=== PATIENT | male | born 1965 | race Caucasian/White ===

== ENCOUNTER 2016-11-29 11:48 | Emergency (ER) | payer MEDICAID ==
[~2016-11-29] VITALS: Ht 170.2 cm; Wt 59.0 kg
[~2016-11-29 11:48] MED LIST: BUSP30TA2 PO; CHLO10TA10 PO; DIVA500T PO; ESCI20TA45 PO; LEVE500T99 PO; MEMA10TA2 PO; TOPI100T11 PO; VENL225T PO; ZOLP10TA PO
[2016-11-29] MEDS ORDERED: TETANUS,DIPTH,PERTUSS P/F (BOOSTRIX) 0.5 ML VIAL IM STA (12:19)
--- NOTE | 2016-11-29 12:19 | ED Fall/Injury ---
General Chief Complaint: Laceration Stated Complaint: FALL/RT KNEE LAC Nursing Triage Note: c/o laceration to right knee. Pt apparently fell. Denies head trauma. Source: patient Exam Limitations: no limitations History of Present Illness Time seen by provider: 12:05 Initial Comments Here with complaint of laceration to the right knee after falling while trying to get in the car. Denies hitting his head. He did apparently disrupt the scab to the left elbow at the same time. Denies other injury. Last tetanus is unknown. Patient does have advanced dementia and his poor historian. Family states that he fell getting into the car. They have a gravel driveway and he hit his knee on the gravel. Occurred: just prior to arrival Severity: moderate Injuries/Pain Location: lower extremity Context: lost balance Loss of Consciousness: no loss of consciousness Associated Symptoms (Fall): Denies Symptoms Allergies and Home Medications Allergies Coded Allergies: morphine (Unverified Adverse Reaction, Unknown, 05/03/16) Home Medications Buspirone HCl 30 Mg Tablet, 30 MG PO BID, (Reported) Chlorpromazine HCl 10 Mg Tablet, 10 MG PO TID, (Reported) Divalproex Sodium 500 Mg Tablet.dr, 1,500 MG PO BID for 30 Days, Ref 2 Prescribed by: JENIFER EVANS on 05/04/16 0155 Escitalopram Oxalate 20 Mg Tablet, 20 MG PO DAILY, (Reported) Levetiracetam 500 Mg Tablet, 1,500 MG PO BID, (Reported) Memantine HCl 10 Mg Tablet, 20 MG PO BID, (Reported) Topiramate 100 Mg Tablet, 100 MG PO TID, (Reported) Venlafaxine HCl 225 Mg Tab.er.24, 225 MG PO DAILY, (Reported) Zolpidem Tartrate 10 Mg Tablet, 10 MG PO HS, (Reported) Past Udwbiax-Xpyubs-Opjhgp Hx Patient Social History Alcohol Use: Occasionally Uses Recreational Drug Use: Yes (marijuana) Type Used: Cigarettes Recent Foreign Travel: No Contact w/Someone Who Travel: No Recent Infectious Disease Expo: No Recent Hopitalizations: No Immunizations Up To Date Tetanus Booster (TDap): Unknown Seasonal Allergies Seasonal Allergies: No Surgeries HX Surgeries: Yes Surgeries: Brain Shunt Respiratory Hx Respiratory Disorders: Yes Respiratory Disorders: Asthma, COPD Cardiovascular Hx Cardiac Disorders: Yes Cardiac Disorders: Hypertension Neurological Hx Neurological Disorders: Yes Neurological Disorders: Dementia, Seizure Disorder Reproductive System Hx Reproductive Disorders: No Genitourinary Hx Genitourinary Disorders: No Gastrointestinal Hx Gastrointestinal Disorders: No Musculoskeletal Hx Musculoskeletal Disorders: Yes Musculoskeletal Disorders: Arthritis Endocrine Hx Endocrine Disorders: No HEENT HX ENT Disorders: No Cancer Hx Cancer: No Psychosocial Hx Psychiatric Problems: Yes Behavioral Health Disorders: Anxiety, Depression Integumentary HX Skin/Integumentary Disorder: No Blood Transfusions Hx Blood Disorders: No Adverse Reaction to a Blood Tr: No Reviewed Nursing Assessment Reviewed/Agree w Nursing PMH: Yes Family Medical History Significant Family History: No Pertinent Family Hx Physical Exam Vital Signs Vital Sign - Last 12Hours 11/29/16 12:01 Temp 97.3 Pulse 70 Resp 18 B/P (MAP) 116/70 Pulse Ox 95 O2 Delivery Room Air Capillary Refill : Less Than 3 Seconds General Appearance: WD/WN, no apparent distress HEENT: PERRL/EOMI, pharynx normal Neck: full range of motion, supple Cardiovascular: regular rate, rhythm, no murmur Respiratory: lungs clear, normal breath sounds Gastrointestinal: non tender, soft Back: normal inspection, no CVA tenderness, no vertebral tenderness Extremities: normal range of motion, other (tenderness around the right knee and the left upper arm. Wounds as noted below.) Neurologic/Psychiatric: alert, normal mood/affect Skin: warm/dry, other (4-5 cm laceration to the right anterior knee that is irregular shaped. Bleeding controlled. Multiple scattered abrasions and bruising noted. Lateral aspect of left elbow with few older appearing scabs.) [place] Coma Score Best Eye Response: (4) Open Spontaneously Best Verbal Response: (5) Oriented Best Motor Response: (6) Obeys Commands Laceration Repair : Wound Location: Lower Extremities Other Wound Location Right knee Wound Length (cm): 4 Wound's Depth, Shape: superficial, irregular Wound Explored: contaminated Irrigated w/ Saline (ccs): 250 Betadine Prep?: No (Betasept) Anesthesia: Lidocaine w/ Epi Volume Anesthetic (ccs): 6 Wound Debrided: minimal Suture: Prolene Suture Size: 4-0 Number of Sutures: 10 Layer Closure?: 1 Number Deep Layer Sutures: 0 Sterile Dressing Applied?: Yes Progress Wound vigorously scrubbed with Betasept after anesthesia. Closed and covered with antibiotic ointment and dressing. Patient tolerated procedure well. No complications. Progress/Results/Core Measures Results/Orders My Orders Orders - CEILA WHITE MD Elbow, Left, 3 Views (11/29/16 12:19) Knee, Right, 3 Views (11/29/16 12:19) Dipht,Pertuss(Acell),Tet Adult (Boostrix (11/29/16 12:19) Lidocaine/Epi 1% 1:100,000 (Xylocaine /E (11/29/16 14:00) Vital Signs/I&O Vital Sign - Last 12Hours 11/29/16 12:01 Temp 97.3 Pulse 70 Resp 18 B/P (MAP) 116/70 Pulse Ox 95 O2 Delivery Room Air Blood Pressure Mean: 85 Progress Note : Progress Note Seen and evaluated. X-ray of right knee and left elbow. Tetanus updated. Wound closed. Dressing placed. I did discuss findings and concerns with the patient as well as his sister per his instructions. Elbow x-ray does show some effusion on the x-ray but no occult fracture. He does have long history of left rotator cuff injury and complains of pain in the upper arm but not necessarily at the elbow. He does have some mild abrasions at the elbow. He was instructed to follow with his doctor for x-ray recheck. 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 Discharged home with return precautions. Patient verbalize understanding instructions and agreement with plan. Diagnostic Imaging Diagonstic Imaging: Xray Plain Films/CT/US/NM/MRI: elbow Comments VIA [facility]. [place], [place] NAME: JULIANA BENJAMIN [facility] REC#: [id number] PT STATUS: REG ER : 1965 PHYSICIAN: CELIA WHITE MD ADMIT DATE: 11/29/16/ER Draft Date of Exam:11/29/16 ELBOW, LEFT, 3 VIEWS INDICATION: Fall with left elbow pain. DISCUSSION: Four views of the left elbow were obtained with no comparison. A small left elbow effusion is present. There are small well-corticated ossicles noted anterior and posterior to the elbow joint, chronic. There is no acute fracture identified. An occult radial head fracture cannot be entirely excluded given the presence of a small effusion. Recommend clinical correlation and followup radiography as indicated. No radiopaque foreign body. IMPRESSION: Small left elbow effusion. No obvious fracture is identified. Recommend continued radiographic followup to evaluate for an occult radial head fracture. Dictated on workstation # [id number] Dict: 11/29/161330 Trans: 11/29/16 133 MARIELENA [id number] Interpreted by: JULIANA MCCRAY MD Electronically signed by: Faribagonsgregor Imaging: Xray Plain Films/CT/US/NM/MRI: knee Comments VIA [facility]. [place], [place] NAME: JULIANA BENJAMIN [facility] REC#: [id number] PT STATUS: REG ER : 1965 PHYSICIAN: CELIA WHITE MD ADMIT DATE: 11/29/16/ER Draft Date of Exam:11/29/16 KNEE, RIGHT, 3 VIEWS EXAMINATION: Three views of the right knee. INDICATION: Fall. FINDINGS: There is no fracture, dislocation, or radiopaque foreign body. The joint space appears normal. No suprapatellar effusion is seen. IMPRESSION: Unremarkable exam. Dictated on workstation # [id number] Dict: 11/29/161329 Trans: 11/29/161332 MARIELENA [id number] Interpreted by: GISELE MCCULLOUGH MD Electronically signed by: Departure Impression Impression: Primary Impression: Laceration of right knee Qualified Codes: S81.011A - Laceration without foreign body, right knee, initial encounter Additional Impression: Contusion of elbow, left Disposition: ADMITTED INPATIENT Condition: Stable Departure-Patient Inst. Decision time for Depature: 14:42 Referrals: NO,LOCAL PHYSICIAN (PCP/Family) Primary Care Physician Patient Instructions: Laceration Repair With Stitches (DC) Add. Discharge Instructions: All discharge instructions reviewed with patient and/or family. Voiced understanding. Sutures out in 10-14 days. You need to have repeat x-ray within one week for your left elbow. You may have this done at the clinic. Follow-up with your DrOumou in one week for recheck. Return for worse pain, fever, vomiting, weakness, breathing problems or other concerns as needed. Continue home medications as directed. You should use antibiotic ointment and a dressing over the wound once or twice daily for the next 7 days and then as needed. You may keep covered with a dry dressing to protect the wound otherwise. CELIA WHITE MD Nov 29, 2016 12:19
--- NOTE | 2016-11-29 13:33 | Diagnostic Imaging Report ---
EXAMINATION: Three views of the right knee. INDICATION: Fall. FINDINGS: There is no fracture, dislocation, or radiopaque foreign body. The joint space appears normal. No suprapatellar effusion is seen. IMPRESSION: Unremarkable exam. Dictated by: Dictated on workstation # [id number]
--- NOTE | 2016-11-29 13:34 | Diagnostic Imaging Report ---
INDICATION: Fall with left elbow pain. DISCUSSION: Four views of the left elbow were obtained with no comparison. A small left elbow effusion is present. There are small well-corticated ossicles noted anterior and posterior to the elbow joint, chronic. There is no acute fracture identified. An occult radial head fracture cannot be entirely excluded given the presence of a small effusion. Recommend clinical correlation and followup radiography as indicated. No radiopaque foreign body. IMPRESSION: Small left elbow effusion. No obvious fracture is identified. Recommend continued radiographic followup to evaluate for an occult radial head fracture. Dictated by: Dictated on workstation # [id number]
[2016-11-29] MEDS ORDERED: LIDOCAINE/EPI 1%-1:100,000 (XYLOCAINE) 20ML INJ STA (14:00)
[2016-11-29 14:44] VITALS: BP 122/68
== END 2016-11-29 14:44 | disposition home or self-care (01) ==
LOC: EDUNIT# 11:48 → ER 11:49
DX: S81.011A Laceration without foreign body, right knee, initial encounter (principal); S50.02XA Contusion of left elbow, initial encounter; Z23 Encounter for immunization; F03.90 Unspecified dementia, unspecified severity, without behavioral disturbance, psychotic disturbance, mood disturbance, and anxiety; J44.9 Chronic obstructive pulmonary disease, unspecified; I10 Essential (primary) hypertension; Z79.899 Other long term (current) drug therapy; V48.4XXA Person boarding or alighting a car injured in noncollision transport accident, initial encounter; Y92.014 Private driveway to single-family (private) house as the place of occurrence of the external cause; Y99.8 Other external cause status
CPT/HCPCS: 12002; 73080; 73562; 90471; 90715

== ENCOUNTER → 2018-05-04 | Outpatient (CLI) | payer MEDICAID ==
[~2018-05-04] MED LIST changes: +GADOBUTROL 10 MMOL/10 ML (GADAVIST) VIAL IV ONE
[2018-05-04 10:44] LABS: BUN/CREATININE RATIO 20; CREATININE SERUM 0.87 MG/DL (0.60-1.30); GFR ESTIMATED > 60
--- NOTE | 2018-05-04 13:49 | Diagnostic Imaging Report ---
PROCEDURE: MR imaging of the brain with and without contrast. TECHNIQUE: Multiplanar, multisequence MR imaging of the brain was performed with and without contrast. INDICATION: Headaches. Patient has prior history of toxoplasmosis and has a known DINKEY SKINNER shunt. COMPARISON: No prior MRI studies are available for comparison. Comparison is made with prior CT of the brain from 05/03/2016. FINDINGS: Ventricular size and configuration appear similar to prior CT study. Postsurgical changes of right frontal, temporal, and parietal craniotomies are seen. A right posterior parietal DINKEY SKINNER shunt appears to have the tip near the left lateral ventricular body. There is significant periventricular T2 signal noted, correlating with low density on CT and appears stable. This may be secondary to patient's history of toxoplasmosis. Cystic changes of right frontal lobe are similar to prior CT. Asymmetric enlargement of the left lateral ventricle compared to the right is also similar to prior exam. No acute intra-axial or extra-axial hemorrhage is seen. No diffusion restriction is identified. No enhancing lesions are seen. There is generalized dural enhancement, typical in a patient with a DINKEY SKINNER shunt. The normal expected flow-voids within the carotid siphons are seen. IMPRESSION: Overall stable MRI of the brain with and without contrast when compared with prior CT from 05/03/2016. Dictated by: Dictated on workstation # [id number]
== END ==
LOC: RAD 10:17
PROVIDERS: ATTEND Nurse Practitioner Community Health
DX: R51 Headache (principal); Z86.19 Personal history of other infectious and parasitic diseases; Z98.2 Presence of cerebrospinal fluid drainage device
CPT/HCPCS: 36415; 70553; 82565; 84520

== ENCOUNTER 2018-06-25 17:09 | Emergency (ER) | payer MEDICAID ==
[~2018-06-25] VITALS: Ht 170.2 cm; Wt 88.0 kg
[~2018-06-25 17:09] MED LIST changes: -GADOBUTROL 10 MMOL/10 ML (GADAVIST) VIAL IV ONE
--- NOTE | 2018-06-25 17:40 | ED Fall/Injury ---
General Chief Complaint: Trauma-Non Activation Stated Complaint: FALL Nursing Triage Note: FALL FROM STANDING POSITION, BANGED HIS HEAD AGAINST THE WALL Source: patient Exam Limitations: no limitations History of Present Illness Date Seen by Provider: Jun 25, 2018 Time Seen by Provider: 17:39 Initial Comments To ER per EMS from [facility] [place] [facility] with reports of a fall where he resides for care and assistance with activities of daily living Occurred: just prior to arrival Severity: moderate Injuries/Pain Location: head Context: slipped Loss of Consciousness: no loss of consciousness Allergies and Home Medications Allergies Coded Allergies: morphine (Unverified Adverse Reaction, Unknown, 05/03/16) Home Medications Buspirone HCl 30 Mg Tablet, 30 MG PO BID, (Reported) Chlorpromazine HCl 10 Mg Tablet, 10 MG PO TID, (Reported) Divalproex Sodium 500 Mg Tablet.dr, 1,500 MG PO BID Prescribed by: JENIFER EVANS on 05/04/16 0155 Escitalopram Oxalate 20 Mg Tablet, 20 MG PO DAILY, (Reported) Levetiracetam 500 Mg Tablet, 1,500 MG PO BID, (Reported) Memantine HCl 10 Mg Tablet, 20 MG PO BID, (Reported) Topiramate 100 Mg Tablet, 100 MG PO TID, (Reported) Venlafaxine HCl 225 Mg Tab.er.24, 225 MG PO DAILY, (Reported) Zolpidem Tartrate 10 Mg Tablet, 10 MG PO HS, (Reported) Patient Home Medication List Home Medication List Reviewed: Yes Review of Systems Review of Systems Constitutional: see HPI Eyes: No Symptoms Reported Ears, Nose, Mouth, Throat: no symptoms reported Respiratory: no symptoms reported Cardiovascular: no symptoms reported Genitourinary: no symptoms reported Musculoskeletal: no symptoms reported Skin: no symptoms reported Psychiatric/Neurological: No Symptoms Reported Past Dnyzjcg-Vpvkzq-Kuzcgw Hx Patient Social History Alcohol Use: Denies Use Recreational Drug Use: Yes Drug of Choice: WEED Smoking Status: Current Everyday Smoker Type Used: Cigarettes Recent Foreign Travel: No Contact w/Someone Who Travel: No Recent Infectious Disease Expo: No Recent Hopitalizations: No Immunizations Up To Date Tetanus Booster (TDap): Unknown Seasonal Allergies Seasonal Allergies: No Past Medical History Surgeries: Yes Brain Shunt Respiratory: Yes Asthma, COPD Currently Using CPAP: No Currently Using BIPAP: No Cardiac: Yes Hypertension Neurological: Yes Dementia, Seizure Disorder Reproductive Disorders: No Gastrointestinal: No Musculoskeletal: Yes Arthritis Endocrine: No Cancer: No Psychosocial: Yes Anxiety, Depression Integumentary: No Blood Disorders: No Adverse Reaction/Blood Tranf: No Family Medical History No Pertinent Family Hx Physical Exam Vital Signs Vital Signs - First Documented 06/25/18 17:09 Temp 97.8 Pulse 88 Resp 16 B/P (MAP) 107/84 (92) Pulse Ox 95 O2 Delivery Room Air Capillary Refill : Less Than 3 Seconds Height, Weight, BMI Height: 5'7.00" Weight: 194lbs. oz. 87.416906pe; BMI Method:Stated General Appearance: WD/WN, no apparent distress HEENT: PERRL/EOMI, normal ENT inspection, TMs normal Neck: non-tender, full range of motion Respiratory: normal breath sounds, no respiratory distress, no accessory muscle use Gastrointestinal: normal bowel sounds, non tender Extremities: normal range of motion, non-tender Neurologic/Psychiatric: alert, normal mood/affect, oriented x 3 Skin: normal color, warm/dry Yamilex Coma Score Best Eye Response: (4) Open Spontaneously Best Verbal Response: (5) Oriented Best Motor Response: (6) Obeys Commands Yamilex Total: 15 Procedures/Interventions Suture Size: 4-0 Progress/Results/Core Measures Results/Orders My Orders Orders - JOSE PAYNE APRN Ct Head/Cervical Spine Wo (06/25/18 17:29) Vital Signs/I&O 06/25/18 17:09 Temp 97.8 Pulse 88 Resp 16 B/P (MAP) 107/84 (92) Pulse Ox 95 O2 Delivery Room Air Blood Pressure Mean: 92 Departure Communication (Admissions) NAME: JULIANA [facility]ENJAMIN [facility] REC#: [id number] PT STATUS: REG ER : 1965 PHYSICIAN: JOSE PAYNE APRN ADMIT DATE: 06/25/18/ER Draft Date of Exam:06/25/18 CT HEAD/CERVICAL SPINE WO EXAMINATION: CT brain and CT cervical spine without contrast from 06/25/2018. TECHNIQUE: Multiple contiguous axial images were obtained through the brain and cervical spine without the use of intravenous contrast. Sagittal and coronal reformations through the cervical spine were then performed. INDICATION: Fall from standing, pain. COMPARISON: Comparison made to CT brain from 05/03/2016. FINDINGS: Brain: Postoperative findings on the right again noted and similar to previous. There are multiple large areas of encephalomalacia, consistent with prior infarcts, also similar to prior. There is a PURSE SEINER shunt along the right aspect posteriorly with the tip extending to the mid aspect of the left lateral ventricle. This is similar to prior as well. No definite superimposed acute infarct appreciated but could be obscured by the underlying chronic changes. There is no mass effect or midline shift with no hydrocephalus. Diffuse marked atrophy is noted. The left ventricle is prominent but similar to prior. There is ex-vacuo dilatation of the right temporal horn as well, slightly more prominent in appearance than on prior imaging but perhaps due to increasing surrounding encephalomalacia. Motion artifact does limit evaluation. Scattered calcifications are noted and stable. Calvarium is difficult to evaluate in some areas due to the motion artifact but postoperative findings are noted throughout. No definite acute osseous abnormality. The visualized sinuses demonstrate no air-fluid levels. IMPRESSION: 1. Diffuse chronic changes as described with no definite acute process seen, however examination is limited by the diffuse chronic change and the motion artifact. CT cervical spine: Anterior fusion noted at C5-C6. Diffuse multilevel intervertebral disc space narrowing seen throughout the entire cervical spine with anterior and posterior spurring as well. Minimal grade 1 anterolisthesis at C7-T1 is seen. This is most likely on a degenerative basis. No acute fractures appreciated. Fairly marked multilevel central narrowing noted due to multilevel spur disc complexes, some of which likely cause severe central stenosis, however this could be better characterized with MRI as clinically warranted. There is bilateral neuroforaminal stenosis at all levels, some of which appears severe as well. IMPRESSION: 1. Diffuse marked degenerative disease throughout the cervical spine with postoperative findings, as noted. Multilevel degenerative findings likely cause severe central and neuroforaminal stenosis, as discussed above. No acute fractures. Dictated on workstation # [id number] Dict: 06/25/18 1744 Trans: 06/25/18 1805 [id number] [id number] Interpreted by: MAGI SALEEM MD Electronically signed by: Impression Primary Impression: Fall at [facility] Qualified Codes: W19.XXXA - Unspecified fall, initial encounter; Y92.129 - Unspecified place in [facility] as the place of occurrence of the external cause Additional Impression: Head injury Qualified Codes: S09.90XA - Unspecified injury of head, initial encounter Disposition: 03 XFER SNF Condition: Stable Departure-Patient Inst. Decision time for Depature: 18:27 Referrals: JULIANA WINSLOW MD (PCP) Primary Care Physician ESTEPHANIA IVAN (Family) Primary Care Physician Patient Instructions: Minor Head Injury (DC) Add. Discharge Instructions: 1. Return to ER for any concerns 2. Follow-up with your doctor next week All discharge instructions reviewed with patient and/or family. Voiced understanding. JOSE PAYNE COMPUTER HELP DESK SPECIALIST Jun 25, 2018 17:40
--- NOTE | 2018-06-25 18:06 | Diagnostic Imaging Report ---
EXAMINATION: CT brain and CT cervical spine without contrast from 06/25/2018. TECHNIQUE: Multiple contiguous axial images were obtained through the brain and cervical spine without the use of intravenous contrast. Sagittal and coronal reformations through the cervical spine were then performed. INDICATION: Fall from standing, pain. COMPARISON: Comparison made to CT brain from 05/03/2016. FINDINGS: Brain: Postoperative findings on the right again noted and similar to previous. There are multiple large areas of encephalomalacia, consistent with prior infarcts, also similar to prior. There is a MANUFACTURING ENGINEERING TECHNOLOGIST shunt along the right aspect posteriorly with the tip extending to the mid aspect of the left lateral ventricle. This is similar to prior as well. No definite superimposed acute infarct appreciated but could be obscured by the underlying chronic changes. There is no mass effect or midline shift with no hydrocephalus. Diffuse marked atrophy is noted. The left ventricle is prominent but similar to prior. There is ex-vacuo dilatation of the right temporal horn as well, slightly more prominent in appearance than on prior imaging but perhaps due to increasing surrounding encephalomalacia. Motion artifact does limit evaluation. Scattered calcifications are noted and stable. Calvarium is difficult to evaluate in some areas due to the motion artifact but postoperative findings are noted throughout. No definite acute osseous abnormality. The visualized sinuses demonstrate no air-fluid levels. IMPRESSION: 1. Diffuse chronic changes as described with no definite acute process seen, however examination is limited by the diffuse chronic change and the motion artifact. CT cervical spine: Anterior fusion noted at C5-C6. Diffuse multilevel intervertebral disc space narrowing seen throughout the entire cervical spine with anterior and posterior spurring as well. Minimal grade 1 anterolisthesis at C7-T1 is seen. This is most likely on a degenerative basis. No acute fractures appreciated. Fairly marked multilevel central narrowing noted due to multilevel spur disc complexes, some of which likely cause severe central stenosis, however this could be better characterized with MRI as clinically warranted. There is bilateral neuroforaminal stenosis at all levels, some of which appears severe as well. IMPRESSION: 1. Diffuse marked degenerative disease throughout the cervical spine with postoperative findings, as noted. Multilevel degenerative findings likely cause severe central and neuroforaminal stenosis, as discussed above. No acute fractures. Dictated by: Dictated on workstation # [id number]
[2018-06-25 19:33] VITALS: BP 107/84
== END 2018-06-25 19:37 ==
LOC: EDUNIT# 17:09 → ER 17:10
DX: S09.90XA Unspecified injury of head, initial encounter (principal); J44.9 Chronic obstructive pulmonary disease, unspecified; I10 Essential (primary) hypertension; F03.90 Unspecified dementia, unspecified severity, without behavioral disturbance, psychotic disturbance, mood disturbance, and anxiety; G40.909 Epilepsy, unspecified, not intractable, without status epilepticus; F41.9 Anxiety disorder, unspecified; F32.9 Major depressive disorder, single episode, unspecified; F17.210 Nicotine dependence, cigarettes, uncomplicated; R40.2142 Coma scale, eyes open, spontaneous, at arrival to emergency department; R40.2252 Coma scale, best verbal response, oriented, at arrival to emergency department; R40.2362 Coma scale, best motor response, obeys commands, at arrival to emergency department; Z88.6 Allergy status to analgesic agent; W01.0XXA Fall on same level from slipping, tripping and stumbling without subsequent striking against object, initial encounter; Y92.129 Unspecified place in nursing home as the place of occurrence of the external cause
CPT/HCPCS: 70450; 72125

== ENCOUNTER 2018-07-01 13:57 | Emergency (ER) | payer MEDICAID ==
[~2018-07-01] VITALS: Ht 172.7 cm; Wt 90.7 kg
--- OUTSIDE RECORDS SUMMARY | 2018-07-01 14:02 | XMS REPORT ---
Author Author SARAH MENDEZ [facility] Address [address] [place] [address] Care Team Providers Care Personnel Recruiter Name Role Phone SARAH MENDEZ Unavailable PROBLEMS Type Condition ICD9-CM Code UUB09-FU Code Onset Dates Condition Status SNOMED Code Problem Major depressive disorder, recurrent, moderate F33.1 Active 15647059 Problem Sleep apnea, unspecified type G47.30 Active 66374396 Problem Degenerative brain disorder G31.9 Active 48246893 Problem Gastroesophageal reflux disease without esophagitis K21.9 Active 421231488 Problem Gait disturbance R26.9 Active 35460870 Problem Depressive disorder, not elsewhere classified F32.9 Active 75297914 Problem Other chronic pain G89.29 Active 50161538 Problem History of brain shunt Z98.2 Active 582098853 Problem PTSD (post-traumatic stress disorder) F43.10 Active 62778187 Problem Anxiety F41.9 Active 38082017 Problem Unsteady gait R26.81 Active 62306763 Problem Mood disorder F39 Active 59332658 Problem Unspecified mental disorder due to known physiological condition F09 Active 985873685 Problem Other chronic pain G89.29 Active 11346758 Problem Dementia with behavioral disturbance, unspecified dementia type F03.91 Active [id number] ALLERGIES No Information ENCOUNTERS Encounter Location Date Diagnosis [facility] [address] [facility]NOTE 3[facility] [id number], [place] [address] Jun, [facility] [address] [id number] [address] Jun, Gastroesophageal reflux disease without esophagitis K21.9 [facility] [address] [id number] [address] May, PTSD (post-traumatic stress disorder) F43.10 [facility] [address] [id number] May, Gait disturbance R26.9 and Callus of foot L84 [place] [id number] [place] [address] 75651- 3257 Apr, PTSD (post-traumatic stress disorder) F43.10 [place] [id number] [place] [address] 21891- 0838 Apr, [place] [id number] [place] [address] 22251- 4371 Apr, History of brain shunt Z98.2 [place] [id number] [place] [address] 08037- 0057 Apr, PTSD (post-traumatic stress disorder) F43.10 [place] [id number] [address] 34934- 8200 Apr, History of brain shunt Z98.2 [place] [id number] [place] [address] 24012- 1793 Apr, History of brain shunt Z98.2 [facility] [address] [id number] Mar, History of brain shunt Z98.2 ; Depressive disorder, not elsewhere classified F32.9 ; Degenerative brain disorder G31.9 ; Unsteady gait R26.81 ; Other chronic pain G89.29 and Daily headache R51 [place] [address] [place] [address] 98768- 5048 Mar, PTSD (post-traumatic stress disorder) F43.10 [place] [address] [place] [address] 00916- 5122 Mar, [place] [id number] [place] [address] 64425- 6341 Feb, PTSD (post-traumatic stress disorder) F43.10 [place] [address], [place] [address] 0673 Feb, PTSD (post-traumatic stress disorder) F43.10 [place] [address] [address] 2543 Feb, Other chronic pain G89.29 and Pain in right knee M25.561 [facility] [address] [place] [address] 61437 2546 Feb, PTSD (post-traumatic stress disorder) F43.10 [facility] [address] [place] [address] 13988- 6347 Feb, [facility] [address] [id number] Jan, Dementia with behavioral disturbance, unspecified dementia type F03.91 ; Other chronic pain G89.29 and Plantar fasciitis M72.[address] [facility] [address] [id number] Jan, Daily headache R51 ; History of brain shunt Z98.2 ; Plantar fasciitis of left foot M72.2 ; Pain in right knee M25.561 and Pain in left knee M25.562 [place] [address] [place] [address] 85716- 8048 14 Jan, 2018 [place] [id number] [place] [address] 85997 2547 Jan, Pain in right knee M25.561 [facility] [address] [place] [address] 94824 2542 Jan, [facility] [address] [place] [address] 52889 2546 Jan, [facility] [address] [place] [address] 98583 2541 Jan, [facility] [id number] [place] [address] 52322 2546 December, Other chronic pain G89.[address] [facility] [address] [id number] December, Pain in left knee M25.562 ; Pain in right leg M79.604 ; Other chronic pain G89.29 ; Localized edema R60.0 and PTSD (post-traumatic stress disorder) F43.10 [facility] [id number] [place] [address] 62346- 3455 December, [facility] [id number] [place] [address] 20098- 1856 December, PTSD (post-traumatic stress disorder) F43.10 [facility] [id number] [place] [address] 13234- 3398 December, [facility] [id number] [place] [address] 39526- 3567 December, [facility] [id number] [place] [address] 34748- 3169 December, Depressive disorder, not elsewhere classified F32.9 and Cognitive change R41.89 [facility] [id number] [place] [address] 56160- 4822 Nov, Major depressive disorder, recurrent, moderate F33.1 [facility] [id number] [place] [address] 17682- 8204 Nov, [facility] [id number] [place] [address] 54927- 1329 Nov, [facility] [id number] [place] [address] 74775- 1047 Nov, [facility] [id number] [place] [address] 48369- 5357 Nov, [facility] [id number] [address] 55298- 8237 Nov, Mood disorder F39 [facility] [id number] [place] [address] 02785- 4845 Nov, Depressive disorder, not elsewhere classified F32.9 and Cognitive change R41.89 [facility] [id number] [place] [address] 87492- 7276 Nov, [facility] [id number], [place] [address] Nov, [facility] [place] [address] [id number] Oct, Tear of skin of plantar aspect of right foot, initial encounter S91.311A [facility] [address] [id number], [place] [address] 2546 Oct, [facility] [address], [place] [address] 2546 Oct, [facility] [id number] [address] Oct, [facility] [id number] [place] [id number] Oct, [facility] [address] [id number] [id number] Sep, [facility] [id number] [place] [id number] Sep, [facility] [address] [id number] [address] Sep, [facility] [id number] [id number] Sep, [facility] [address], [place] [address] 2546 Sep, [facility] [id number], [place] [address] 2546 Sep, Other chronic pain G89.29 and Pain in left knee M25.562 [facility] [address], [place] [address] 2546 Sep, [facility] [address] [address] Sep, Plantar fasciitis of left foot M72.2 and Pain in right knee M25.561 [facility] [address] [id number] [id number] Aug, [facility] [address] [facility]NOTE [facility]] [id number], [place] [address] 8810 Aug, [facility] [address] [facility]NOTE [address]] [id number] Aug, [facility] [address] [facility]NOTE [facility]] [id number] [address] Aug, Chronic daily headache R51 [facility] [address] [facility]NOTE 3] [id number], [place] [address] 9809 Aug, [facility] [address] [id number] Aug, Edema, unspecified type R60.9 ; Weight gain R63.5 and Sleep apnea, unspecified type G47.30 [facility] [address] [id number] Jul, Acute pain of left knee M25.562 and Plantar fasciitis of left foot M72.2 [facility] [address] [facility] 3] [id number], [place] [address]- 8178 Jul, [facility] [place] [address] [id number] Jul, Plantar fasciitis of left foot M72.2 and Chronic daily headache R51 [facility] [address] [id number] [address] Jul, [facility] [address] [id number] [address] Jun, [facility] [address] [facility]NOTE 3] [id number], [place] [address] 7908 Jun, [facility] [address] [id number] [id number] Jun, [facility] [address] [id number] [address] Jun, [facility] [address] [id number] [address] May, [facility] [address] [id number] [address] May, [facility] [id number] [place] [address] 38749- 3401 May, Stress incontinence of urine N39.3 [facility] [address] [id number] [address] May, [facility] [place] [address] [id number] May, Encounter for examination for admission to shelter Z02.2 ; Toxoplasmosis B58.9 ; Seizures R56.9 ; Major depressive disorder, recurrent, moderate F33.1 ; Degenerative brain disorder G31.9 and Unsteady gait R26.81 [facility] [id number] [place] [address] 15827- 6707 May, [facility] [id number] [address] 62353- 6479 May, Mood disorder F39 [facility] [id number] [place] [address] 46341- 3057 May, [facility] [id number] [address] 36259- 5533 Apr, [facility] [address] [id number], [place] [address]- 6676 Mar, [facility] [id number] [place] [address] 50624- 2634 Mar, [facility] [id number] [place] [address] 16338- 8667 Mar, [facility] [id number] [address] 54136- 7177 Mar, [facility] [address] [id number], [place] [address]- 8724 Mar, [facility] [id number] [address] 00683- 2472 Mar, Stress incontinence of urine N39.3 [facility] [address] [id number] [place] [id number] Mar, [facility] [place] [facility] [address] [id number] [place] [address]- 9626 Feb, [facility] [place] [facility] [address] [id number] [place] [address]- 8325 Feb, [facility] [place] [facility] [address] [id number] [place] [address]- 5134 Feb, [facility] [place] [facility] [id number] [place] [address], [place] [address]- 0918 Feb, [facility] [place] [facility] [address] [id number] [place] [address]- 9946 Feb, [facility] [place] [facility] [address] [id number] [place] [address]- 6459 Feb, [facility] [place] [facility] [address] [id number] [place] [address]- 6269 Feb, [facility] [place] [facility] [address] [id number] [place] [address]- 6660 Jan, [facility] [place] [facility] [address] [id number] [place] [address]- 5901 Jan, [facility] [place] [facility] [address] [id number] [place] [address]- 6867 Jan, [facility] [place] [facility] [address] [id number], [place] [address]- 0875 Jan, [facility] [place] [facility] [address] [id number] [place] [address]- 6614 Jan, [facility] [place] [facility] [address] [id number] [place] [address]- 5228 Jan, [facility] [place] [facility] [address] [id number] 0137 Jan, [facility] [place] [facility] [address], [place] [address]- 5750 Jan, General weakness R53.1 and Dementia with behavioral disturbance, unspecified dementia type F03.91 [facility] [address] [place] [address] 72982- 2957 December, [facility] [id number] [address] 01867- 2732 December, Other chronic pain G89.29 [facility] [id number] [place] [address] 96780- 3988 December, [facility] [id number] [address] 94902- 2112 December, Unsteady gait R26.81 ; Generalized weakness R53.1 ; Unspecified mental disorder due to known physiological condition F09 and Generalized headaches R51 [facility] [id number] [address] 66334- 7930 December, [facility] [id number] [address] 07238- 7486 Nov, Anxiety F41.9 [facility] [id number] [address] 46679- 2730 Nov, Mood disorder F39 [facility] [id number] [address] 01679- 4687 Oct, [facility] [id number] [address] 70310- 9865 Oct, Anxiety F41.9 [facility] [id number] [address] 88153- 5966 Oct, Other chronic pain G89.29 [facility] [address] [place] [address] 60996- 9262 Sep, Other chronic pain G89.29 ; Pain in left knee M25.562 ; Pain in right knee M25.561 and Anxiety F41.9 [facility] [id number] [place] [address] 31602- 1612 28 Sep, 2016 MDD (major depressive disorder), recurrent episode, mild F33.0 ; Degenerative brain disorder G31.9 and Other care home (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 Z79.899 [facility] [id number] [place] [address] 51643- 5962 Sep, [facility] [address] 06173- 1096 Sep, [facility] [id number] [place] [address] 97194- 6205 Sep, Mood disorder F39 ; Pain of left leg M79.605 and Pain in right leg M79.604 [facility] [id number] [place] [address] 45815- 0506 14 Sep, 2016 Seizures R56.9 [facility] [id number] [place] [address] 79854- 1491 Sep, [facility] [id number] [place] [address] 49476- 4532 Sep, [facility] [id number] [place] [address] 85065- 1382 Sep, [facility] [address] [place] [address] 86319- 9757 Aug, Bronchitis J40 [facility] [id number] [place] [address] 99209- 2336 Aug, Bronchitis J40 and Encounter for drug screening Z02.83 [facility] [id number] [place] [address] 31418- 8280 Aug, [facility] [id number] [address] 74718- 2309 Aug, Seizures R56.9 [facility] [id number] [place] [address] 448047- 8923 Aug, Seizures R56.9 [facility] [address] [place] [address] 32499- 3985 Aug, Major depressive disorder, recurrent, moderate F33.1 and Seizures R56.9 [facility] [id number] [place] [address] 47051- 1113 Aug, [facility] [id number] [place] [address] 18041- 4484 Aug, [facility] [id number] [place] [address] 71770- 9768 Aug, Major depressive disorder, recurrent, moderate F33.1 and Seizures R56.9 [facility] [id number] [place] [address] 63857- 3353 Jul, Major depressive disorder, recurrent, moderate F33.1 and Degenerative brain disorder G31.9 [place] [id number] [place] [address] 75851- 0740 Jul, Seizures R56.9 [facility] [id number] [place] [address] 31139- 2326 Apr, [facility] [id number] [place] [address] 89167- 4979 Apr, Major depressive disorder, recurrent, moderate F33.1 ; Anxiety F41.9 and Degenerative brain disorder G31.9 [facility] [address] [place] [address] 74162- 3488 Apr, Mood disorder F39 [facility] [address] [place] [address] 84922- 0157 Apr, Arthritis M19.90 [facility] [id number] [place] [address] 02263- 0839 Mar, Arthritis M19.90 ; Degenerative brain disorder G31.9 and Nonintractable generalized idiopathic epilepsy without status epilepticus G40.309 [place] [id number] [place] [address] 97975313- 2571 Feb, IMMUNIZATIONS No Known Immunizations SOCIAL HISTORY Never Assessed REASON FOR VISIT medication reconciliation--[place] order summary PLAN OF CARE VITAL SIGNS MEDICATIONS Medication Instructions Dosage Frequency Start Date End Date Duration Status Ondansetron 4 MG Orally every 8 hrs PRN 1 tablet on the tongue and allow to dissolve Aug, Active Colace 100 mg Orally twice a day 1 capsule 12h Active Furosemide 40 mg Orally Once a day in AM 1 tablet Sep, 30 day (s) Active Ditropan XL 5 mg Orally Once a day 1 tablet 24h Mar, 30 day(s) Active Memantine HCl 5 mg Orally Once a day 1 tablet 24h Active Levetiracetam 500 mg Orally Twice a day 3 tablets 12h Active Biofreeze 4 % Externally Once a day at bedtime 1 applicationt both ankles Active Milk of Magnesia 1200 MG/15ML Orally Once a day 30ml as needed 24h Active Clonazepam 1 MG Orally Twice a day 1/2 tab in the AM and 1 tab in the PM 12h Sep, Active Percocet 7.5-325 MG Orally every 6 hrs 1 tablet as needed 6h Mar, 28 days Active Amitriptyline HCl 50 MG Orally Once a day at bedtime 1 tablet Active Zyrtec Allergy 10 mg Orally Once a day 1 tablet as needed 24h May, 30 day(s) Active Depakote 500 mg Orally 2 times a day 3 tablets 12h Active Advair Diskus 500-50 MCG/DOSE Inhalation Twice a day 1 puff 12h Active ProAir HFA 108 (90 Base) MCG/ACT Inhalation every 4 hrs 2 puffs as needed for cough or short of breath 4h 30 Active Naproxen 500 MG Orally every 12 hrs 1 tablet as needed 12h 30 Active Potassium Chloride CR Active Clonidine HCl 0.1 MG Orally Twice a day 1 tablet 12h Active Omeprazole 20 mg Orally Once a day 1 capsules 24h Active Gabapentin 300 MG Orally Three times a day 1 capsule 8h Active RESULTS No Results PROCEDURES No Known procedures INSTRUCTIONS MEDICATIONS ADMINISTERED No Known Medications MEDICAL (GENERAL) HISTORY Type Description Date Medical History Toxoplasmosis Medical History migraine Medical History dementia Medical History depression Medical History alzheimers disease Medical History epilepsy Medical History COPD Surgical History cholecystectomy Surgical History appendectomy Surgical History 27 brain surgeries including shunt, [place] Surgical History neck fusion 09/26, 09/28 Surgical History right hand surgery Hospitalization History surgeries Hospitalization History seizures 12/2015
--- OUTSIDE RECORDS SUMMARY | 2018-07-01 14:02 | XMS REPORT ---
Author Author ESTEPHANIA IVAN Organization [facility] Address [address] [place] [address] Care Team Providers Care Coagulator Name Role Phone ESTEPHANIA IVAN Unavailable PROBLEMS Type Condition ICD9-CM Code EQH56-CP Code Onset Dates Condition Status SNOMED Code Problem Dementia with behavioral disturbance, unspecified dementia type F03.91 Active 1511719092315 Problem Degenerative brain disorder G31.9 Active 46741382 Problem Major depressive disorder, recurrent, moderate F33.1 Active 43305796 Problem Gait disturbance R26.9 Active 34853851 Problem History of brain shunt Z98.2 Active 842931687 Problem Other chronic pain G89.29 Active 40988502 Problem Sleep apnea, unspecified type G47.30 Active 21043634 Problem PTSD (post-traumatic stress disorder) F43.10 Active 86518653 Problem Depressive disorder, not elsewhere classified F32.9 Active 59495784 Problem Other chronic pain G89.29 Active 93539582 Problem Anxiety F41.9 Active 45675918 Problem Unsteady gait R26.81 Active 29042476 Problem Mood disorder F39 Active 91798182 Problem Unspecified mental disorder due to known physiological condition F09 Active 520482067 ALLERGIES Substance Reaction Event Type Date Status Morphine Sulfate itching Drug Allergy May, Active ENCOUNTERS Encounter Location Date Diagnosis [facility] [address] [place], [place] [id number] May, Gait disturbance R26.9 and Callus of foot L84 [facility] [id number] [address] Apr, PTSD (post-traumatic stress disorder) F43.10 [facility] [id number] [address] Apr, [facility] [address] [address] Apr, History of brain shunt Z98.2 [place] [address] [address] Apr, PTSD (post-traumatic stress disorder) F43.10 [place] [address] [address] 07 Apr, 2018 History of brain shunt Z98.2 [place] [id number] [place] [address] 10818- 5471 04 Apr, 2018 History of brain shunt Z98.2 [facility] [address] [place] [id number] Mar, History of brain shunt Z98.2 ; Depressive disorder, not elsewhere classified F32.9 ; Degenerative brain disorder G31.9 ; Unsteady gait R26.81 ; Other chronic pain G89.29 and Daily headache R51 [place] [address] [place] [address] 17669- 4800 Mar, PTSD (post-traumatic stress disorder) F43.10 [place] [id number] [place] [address] 57055- 7244 Mar, [place] [id number] [place] [address] 58053- 0504 Feb, PTSD (post-traumatic stress disorder) F43.10 [place] [address], [place] [address] Feb, PTSD (post-traumatic stress disorder) F43.10 [place] [address], [place] [address] 6904 Feb, Other chronic pain G89.29 and Pain in right knee M25.561 [place] [address] [place] [address] 46381- 4892 Feb, PTSD (post-traumatic stress disorder) F43.10 [place] [address] [place] [address] 60618- 9559 Feb, [facility] [address] [id number] Jan, Dementia with behavioral disturbance, unspecified dementia type F03.91 ; Other chronic pain G89.29 and Plantar fasciitis M72.[address] [facility] [address] [id number] Jan, Daily headache R51 ; History of brain shunt Z98.2 ; Plantar fasciitis of left foot M72.2 ; Pain in right knee M25.561 and Pain in left knee M25.562 [facility] [address] [address] Jan, [facility] [id number] [place] [address] 17218- 6349 Jan, Pain in right knee M25.561 [facility] [id number] [place] [address] 86311- 9470 Jan, [facility] [id number] [place] [address] 01112- 1552 Jan, [facility] [address] [place] [address] 26552- 6469 Jan, [facility] [id number] [place] [address] 69342- 4345 December, Other chronic pain G89.[address] [facility] [address] [id number] December, Pain in left knee M25.562 ; Pain in right leg M79.604 ; Other chronic pain G89.29 ; Localized edema R60.0 and PTSD (post-traumatic stress disorder) F43.10 [facility] [id number] [place] [address] 73512- 8298 December, [facility] [id number] [place] [address] 06022- 1945 December, PTSD (post-traumatic stress disorder) F43.10 [facility] [id number] [address] 4[address] December, [facility] [id number] [place] [address] 31300- 1372 December, [facility] [id number] [place] [address] 66108- 6985 December, Depressive disorder, not elsewhere classified F32.9 and Cognitive change R41.89 [facility] [id number] [place] [address] 95153- 8733 Nov, Major depressive disorder, recurrent, moderate F33.1 [facility] [id number] [place] [address] 71874- 1237 Nov, [facility] [id number] [place] [address] 15394- 0859 Nov, [facility] [id number] [place] [address] 44296- 2957 Nov, [facility] [id number] [place] [address] 19312- 4680 Nov, [facility] [id number] [place] [address] 32618- 6794 Nov, Mood disorder F39 [facility] [address] [place] [address] 59480- 1110 Nov, Depressive disorder, not elsewhere classified F32.9 and Cognitive change R41.89 [facility] [address] [place] [address] 66518- 6409 Nov, [facility] [address] [place] [address] 66298- 8531 Nov, [facility] [place] [address] [place] [id number] Oct, Tear of skin of plantar aspect of right foot, initial encounter S91.311A [facility] [address] [place] [address] 58839- 8005 Oct, [facility] [id number], [place] [address] Oct, [facility] [id number] [id number] Oct, [facility] [id number] [address] Oct, [facility] [id number] [address] Sep, [facility] [address] [id number] [id number] Sep, [facility] [id number] [id number] Sep, [facility] [id number] [id number] Sep, [facility] [address], [place] [address] Sep, [facility] [address] [address] Sep, Other chronic pain G89.29 and Pain in left knee M25.562 [facility] [address] [address] Sep, [facility] [address] [id number] Sep, Plantar fasciitis of left foot M72.2 and Pain in right knee M25.561 [facility] [address] [id number] [id number] Aug, [facility] [address], [place] [address] Aug, [facility] [address] Aug, [facility] [id number] [address] Aug, Chronic daily headache R51 [facility] [address] [facility] [id number] [address] 2546 Aug, [facility] [address] [id number] Aug, Edema, unspecified type R60.9 ; Weight gain R63.5 and Sleep apnea, unspecified type G47.[address] [facility] [address] [id number] Jul, Acute pain of left knee M25.562 and Plantar fasciitis of left foot M72.2 [facility] [address] [facility] [id number], [place] [address]246 Jul, [facility] [address] [id number] Jul, Plantar fasciitis of left foot M72.2 and Chronic daily headache R51 [facility] [address] [id number] [id number] Jul, [facility] [address] [id number] [address] Jun, [facility] [address] [facility] [id number], [place] [address] 0366 Jun, [facility] [address] [id number] [address] Jun, [facility] [address] [id number] [id number] Jun, [facility] [address] [id number] [address] May, [facility] [address] [id number] [address] May, [facility] [address] [facility] [id number], [place] [address] 2546 May, Stress incontinence of urine N39.3 [facility] [address] [id number] [id number] May, [facility] [place] [address] [place] [id number] May, Encounter for examination for admission to assisted Z02.2 ; Toxoplasmosis B58.9 ; Seizures R56.9 ; Major depressive disorder, recurrent, moderate F33.1 ; Degenerative brain disorder G31.9 and Unsteady gait R26.81 [facility] [id number] [place] [address] 04676- 5729 May, [facility] [id number] [place] [address] 71450- 3652 May, Mood disorder F39 [facility] [id number] [place] [address] 09158- 1876 May, [facility] [id number] [place] [address] 28539- 1342 Apr, [facility] [id number] [place] [address] 34939- 1816 Mar, [facility] [id number] [place] [address] 99896- 2918 Mar, [facility] [id number] [place] [address] 27581- 1351 Mar, [facility] [id number] [place] [address] 99678- 5064 Mar, [facility] [id number] [place] [address] 99033- 7228 Mar, [facility] [id number] [place] [address] 69463- 8158 Mar, Stress incontinence of urine N39.3 [facility] [id number] [place] [address] [id number] Mar, [facility] [id number] [place] [address] [id number]- 4902 Feb, [facility] [id number] [place] [address] 74548- 4859 Feb, [facility] [address] [id number] [place] [address]- 1132 Feb, [facility] [address] [id number] [place] [address]- 2232 Feb, [facility] [address] [id number] [place] [address]- 6906 Feb, [facility] [address] [id number] [place] [address]- 5410 Feb, [facility] [address] [id number] [place] [address]- 7482 Feb, [facility] [address] [id number] [place] [address]- 1348 Jan, [facility] [address] [facility] [id number] [place] [address]- 5592 Jan, [facility] [address] [facility] [id number] [place] [address]- 8955 Jan, [facility] [address] [facility] [id number] [place] [address]- 8385 Jan, [facility] [address] [facility] [id number] [place] [address]- 0710 Jan, [facility] [address] [facility] [id number] [place] [address]- 6396 Jan, [facility] [address] [facility] [id number] [place] [address]- 3297 Jan, [facility] [address] [facility] [id number] [place] [address]- 9478 Jan, General weakness R53.1 and Dementia with behavioral disturbance, unspecified dementia type F03.91 [facility] [address] [id number] [place] [address]- 3049 December, [facility] [address] [facility] [id number], [place] [address]- 2102 December, Other chronic pain G89.29 [facility] [address], [place] [address]- 6158 December, [facility] [id number] [place] [address] 74568- 4818 December, Unsteady gait R26.81 ; Generalized weakness R53.1 ; Unspecified mental disorder due to known physiological condition F09 and Generalized headaches R51 [facility] [id number] [place] [address] 73450- 7109 December, [facility] [id number] [place] [address] 03244- 7380 Nov, Anxiety F41.9 [facility] [id number] [place] [address] 26822- 9749 Nov, Mood disorder F39 [facility] [id number] [place] [address] 72042- 3338 Oct, [facility] [id number] [place] [address] 42163- 5372 Oct, Anxiety F41.9 [facility] [id number] [place] [address] 09658- 2484 Oct, Other chronic pain G89.29 [facility] [id number] [place] [address] 65351- 8560 Sep, Other chronic pain G89.29 ; Pain in left knee M25.562 ; Pain in right knee M25.561 and Anxiety F41.9 [facility] [address] [place] [address] 98046- 3406 Sep, MDD (major depressive disorder), recurrent episode, mild F33.0 ; Degenerative brain disorder G31.9 and Other long-term (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 Z79.899 [facility] [id number] [place] [address] 14679- 6580 Sep, [facility] [id number] [place] [address] 41599- 1228 Sep, [facility] [address] [place] [address] 80320- 9256 Sep, Mood disorder F39 ; Pain of left leg M79.605 and Pain in right leg M79.604 [facility] [id number] [place] [address] 78519 2546 Sep, Seizures R56.9 [facility] [id number] [place] [address] 71990 2546 Sep, [facility] [id number] [place] [address] 62180- 4146 Sep, [facility] [id number] [place] [address] 01996 2546 Sep, [facility] [id number] [place] [address] 84922- 2535 Aug, Bronchitis J40 [facility] [id number] [place] [address] 76370 254 Aug, Bronchitis J40 and Encounter for drug screening Z02.83 [facility] [id number] [place] [address] 01267- 3898 Aug, [facility] [id number] [place] [address] 21800- 5621 Aug, Seizures R56.9 [facility] [id number] [place] [address] 27899 2546 Aug, Seizures R56.9 [facility] [id number] [place] [address] 79723 2541 Aug, Major depressive disorder, recurrent, moderate F33.1 and Seizures R56.9 [facility] [address] [place] [address] 68544 2546 Aug, [facility] [id number] [place] [address] 21075- 8521 Aug, [place] [address] [place] [address] 28295- 8046 Aug, Major depressive disorder, recurrent, moderate F33.1 and Seizures R56.9 [place] [id number] [place] [address] 70896- 0646 Jul, Major depressive disorder, recurrent, moderate F33.1 and Degenerative brain disorder G31.9 [place] [id number] [place] [address] 02978- 3966 Jul, Seizures R56.9 [place] [id number] [place] [address] 32919- 2562 Apr, [place] [id number] [place] [address] 09655- 9547 Apr, Major depressive disorder, recurrent, moderate F33.1 ; Anxiety F41.9 and Degenerative brain disorder G31.9 [place] [id number] [place] [address] 18294- 5165 Apr, Mood disorder F39 [place] [id number] [place] [address] 94675- 7769 Apr, Arthritis M19.90 [place] [id number] [place] [address] 35235- 6090 Mar, Arthritis M19.90 ; Degenerative brain disorder G31.9 and Nonintractable generalized idiopathic epilepsy without status epilepticus G40.309 [place] [address] [address]- 9049 Feb, IMMUNIZATIONS No Known Immunizations SOCIAL HISTORY Never Assessed REASON FOR VISIT routine visit --XIMENA Arreaga PLAN OF CARE Activity Details Follow Up prn Reason: Future/Pending Procedure SHAVE SKIN LESION 0.6-1 cm VITAL SIGNS MEDICATIONS Medication Instructions Dosage Frequency Start Date End Date Duration Status Ditropan XL 5 mg Orally Once a day 1 tablet 24h Mar, 30 day(s) Active Clonidine HCl 0.1 MG Orally Twice a day 1 tablet 12h Active Furosemide 40 mg Orally Once a day in AM 1 tablet 08 Sep, 2017 30 day (s) Active Ondansetron 4 MG Orally every 8 hrs PRN 1 tablet on the tongue and allow to dissolve Aug, Active Memantine HCl 5 mg Orally Once a day 1 tablet 24h Active Percocet 7.5-325 MG Orally every 6 hrs 1 tablet as needed 6h Mar, 28 days Active Colace 100 mg Orally twice a day 1 capsule 12h Active Milk of Magnesia 1200 MG/15ML Orally Once a day 30ml as needed 24h Active Advair Diskus 500-50 MCG/DOSE Inhalation Twice a day 1 puff 12h Active Levetiracetam 500 mg Orally Twice a day 3 tablets 12h Active Zyrtec Allergy 10 mg Orally Once a day 1 tablet as needed 24h 19 May, 2017 30 day(s) Active Amitriptyline HCl 50 MG Orally Once a day at bedtime 1 tablet Active Depakote 500 mg Orally 2 times a day 3 tablets 12h Active Potassium Chloride CR Active Naproxen 500 MG Orally every 12 hrs 1 tablet as needed 12h 30 Active ProAir HFA 108 (90 Base) MCG/ACT Inhalation every 4 hrs 2 puffs as needed for cough or short of breath 4h 30 Active Gabapentin 300 MG Orally Three times a day 1 capsule 8h Active Biofreeze 4 % Externally Once a day at bedtime 1 applicationt both ankles Active Omeprazole 20 mg Orally Once a day 1 capsules 24h Active Clonazepam 1 MG Orally Twice a day 1/2 tab in the AM and 1 tab in the PM 12h 28 Sep, 2016 Active RESULTS No Results PROCEDURES Procedure Date Ordered Result Body Site SHAVE F,E,E,N,L,M 0.6-1 CM Jun 08, 2018 Minor complication (15 mins) Jun 08, 2018 INSTRUCTIONS MEDICATIONS ADMINISTERED No Known Medications MEDICAL (GENERAL) HISTORY Type Description Date Medical History Toxoplasmosis Medical History migraine Medical History dementia Medical History depression Medical History alzheimers disease Medical History epilepsy Medical History COPD Surgical History cholecystectomy Surgical History appendectomy Surgical History 27 brain surgeries including shunt, [place] Surgical History neck fusion 09/26, 09/28 Surgical History right hand surgery Hospitalization History surgeries Hospitalization History seizures 12/2015
--- OUTSIDE RECORDS SUMMARY | 2018-07-01 14:02 | XMS REPORT ---
Author Author ESTEPHANIA IVAN Organization [facility] Address [address] [place] [address] Care Team Providers Care Sales Floor Manager Name Role Phone ESTEPHANIA IVAN Unavailable PROBLEMS Type Condition ICD9-CM Code LFZ70-SH Code Onset Dates Condition Status SNOMED Code Problem Major depressive disorder, recurrent, moderate F33.1 Active 61197042 Problem Sleep apnea, unspecified type G47.30 Active 52728719 Problem Degenerative brain disorder G31.9 Active 43516202 Problem Gastroesophageal reflux disease without esophagitis K21.9 Active 725819972 Problem Gait disturbance R26.9 Active 89502804 Problem Depressive disorder, not elsewhere classified F32.9 Active 14963956 Problem Other chronic pain G89.29 Active 05146725 Problem History of brain shunt Z98.2 Active 437816685 Problem PTSD (post-traumatic stress disorder) F43.10 Active 73885813 Problem Anxiety F41.9 Active 68435962 Problem Unsteady gait R26.81 Active 18754194 Problem Mood disorder F39 Active 01875555 Problem Unspecified mental disorder due to known physiological condition F09 Active 161829949 Problem Other chronic pain G89.29 Active 06290038 Problem Dementia with behavioral disturbance, unspecified dementia type F03.91 Active [id number] ALLERGIES No Information ENCOUNTERS Encounter Location Date Diagnosis [place] [id number] [address] Jun, Gastroesophageal reflux disease without esophagitis K21.9 [place] [address] [address] May, PTSD (post-traumatic stress disorder) F43.10 [facility] [address] [place] [id number] May, Gait disturbance R26.9 and Callus of foot L84 [place] [address] [address] 24 Apr, 2018 PTSD (post-traumatic stress disorder) F43.10 [place] [address] [address] Apr, [place] [address], [place] [address] 250[address] Apr, History of brain shunt Z98.2 [place] [address] [place] [id number] [place] [address] 92381- 6555 Apr, PTSD (post-traumatic stress disorder) F43.10 [place] [address] [place] [id number] [place] [address] 18949- 8851 07 Apr, 2018 History of brain shunt Z98.2 [place] [address] [address] 04 Apr, 2018 History of brain shunt Z98.2 [facility] [place] [address] [place] [id number] Mar, History of brain shunt Z98.2 ; Depressive disorder, not elsewhere classified F32.9 ; Degenerative brain disorder G31.9 ; Unsteady gait R26.81 ; Other chronic pain G89.29 and Daily headache R51 [place] [address] [address] Mar, PTSD (post-traumatic stress disorder) F43.10 [place] [address] [address] Mar, [place] [address] [address] 6[address] Feb, PTSD (post-traumatic stress disorder) F43.10 [place] [address] [address] 3[address] Feb, PTSD (post-traumatic stress disorder) F43.10 [place] [address] [place] [address] 03342- 2661 Feb, Other chronic pain G89.29 and Pain in right knee M25.561 [facility] [address] [place] [address] 12640- 3312 Feb, PTSD (post-traumatic stress disorder) F43.10 [facility] [address] [address] Feb, [facility] [address] [id number] Jan, Dementia with behavioral disturbance, unspecified dementia type F03.91 ; Other chronic pain G89.29 and Plantar fasciitis M72.[address] [facility] [address] [id number] Jan, Daily headache R51 ; History of brain shunt Z98.2 ; Plantar fasciitis of left foot M72.2 ; Pain in right knee M25.561 and Pain in left knee M25.562 [facility] [id number] [place] [address] 91633- 9843 14 Jan, 2018 [facility] [address] [id number] [place] [address] 16244- 2549 Jan, Pain in right knee M25.561 [facility] [id number] [place] [address] 84170- 6827 05 Jan, 2018 [facility] [id number] [place] [address] 11152- 2546 Jan, [facility] [id number] [place] [address] 11615 2549 Jan, [facility] [address] [place] [address] 24354- 254 December, Other chronic pain G89.[address] [facility] [address] [id number] December, Pain in left knee M25.562 ; Pain in right leg M79.604 ; Other chronic pain G89.29 ; Localized edema R60.0 and PTSD (post-traumatic stress disorder) F43.10 [facility] [address] [place] [address] 50774- 4836 December, [facility] [address] [id number] [place] [address] 46112- 8338 December, PTSD (post-traumatic stress disorder) F43.10 [facility] [address] [id number] [place] [address] 16059- 5326 December, [facility] [id number] [place] [address] 67880- 2180 December, [facility] [address] [id number] [place] [address] 25026- 6145 December, Depressive disorder, not elsewhere classified F32.9 and Cognitive change R41.89 [facility] [address] [id number] [place] [address] 27344- 1900 Nov, Major depressive disorder, recurrent, moderate F33.1 [facility] [address] [id number] [place] [address] 27236- 4188 Nov, [facility] [address] [place] [id number] [place] [address] 54366- 0053 Nov, [facility] [address] [id number] [place] [address] 39017- 3584 Nov, [facility] [address] [place] [id number] [place] [address] 20230- 8606 Nov, [facility] [address] [place] [id number] [place] [address] 90132- 1968 Nov, Mood disorder F39 [facility] [address] [place] [address] 66415- 8633 Nov, Depressive disorder, not elsewhere classified F32.9 and Cognitive change R41.89 [facility] [address] [place] [id number] [place] [address] 69334- 1247 Nov, [facility] [address] [place] [id number] [place] [address] 67136- 7391 Nov, [facility] [address] [id number] Oct, Tear of skin of plantar aspect of right foot, initial encounter S91.311A [facility] [address] [place] [id number] [address] 2546 Oct, [facility] [address] [id number] [address] 2546 Oct, [facility] [id number] [id number] Oct, [facility] [id number] [address] Oct, [facility] [id number] [address] Sep, [facility] [id number] [id number] Sep, [facility] [id number] [id number] Sep, [facility] [id number] [address] Sep, [facility] [id number] [address]- 2546 Sep, [facility] [id number] [address]- 6406 Sep, Other chronic pain G89.29 and Pain in left knee M25.562 [facility] [id number] [address] 2546 Sep, [facility] [address] [address] Sep, Plantar fasciitis of left foot M72.2 and Pain in right knee M25.561 [facility] [address] [place] [id number] [address] Aug, [facility] [id number] [address] 7703 Aug, [facility] [address] [facility] [id number] [address] Aug, [facility] [address] [facility] [id number] Aug, Chronic daily headache R51 [facility] [address] [facility] [id number] [address]- 9648 Aug, [facility] [address] [place] [id number] Aug, Edema, unspecified type R60.9 ; Weight gain R63.5 and Sleep apnea, unspecified type G47.30 [facility] [address] [facility] [place] [id number] Jul, Acute pain of left knee M25.562 and Plantar fasciitis of left foot M72.2 [facility] [id number] [address]- 1785 Jul, [facility] [address] [facility] [place] [id number] Jul, Plantar fasciitis of left foot M72.2 and Chronic daily headache R51 [facility] [id number] [id number] Jul, [facility] [address] [place] [place] [id number] [address] Jun, [facility] [address] [facility] [id number], [place] [address]- 8326 Jun, [facility] [address] [id number] [id number] Jun, [facility] [address] [id number] [id number] Jun, [facility] [address] [place] [id number] [id number] May, [facility] [address] [place] [id number] [address] May, [facility] [address] [address]- 2827 May, Stress incontinence of urine N39.3 [facility] [id number] [place] [id number] May, [facility] [address] [place] [id number] May, Encounter for examination for admission to senior living Z02.2 ; Toxoplasmosis B58.9 ; Seizures R56.9 ; Major depressive disorder, recurrent, moderate F33.1 ; Degenerative brain disorder G31.9 and Unsteady gait R26.81 [facility] [address] [id number] [place] [address] 96046- 0400 May, [facility] [id number] [place] [address] 01929- 8238 May, Mood disorder F39 [facility] [id number] [place] [address] 01445- 7264 May, [facility] [id number] [place] [address] 92198- 3406 Apr, [facility] [id number] [place] [address] 44795- 4192 Mar, [facility] [address] [place] [address] 79516- 3513 Mar, [facility] [id number] [place] [address] 54486- 2290 Mar, [facility] [id number] [place] [address] 51205- 0358 Mar, [facility] [id number] [place] [address] 86074- 3272 Mar, [facility] [address] [place] [address] 97429- 0638 Mar, Stress incontinence of urine N39.3 [facility] [address] [id number] [id number] Mar, [facility] [place] [facility] [address] [id number] [place] [address]- 3481 Feb, [facility] [place] [facility] [address] [id number] [place] 9[address] Feb, [facility] [place] [facility] [address] [id number] [place] [address]- 5945 Feb, [facility] [place] [facility] [address] [id number] [place] [address]- 9025 Feb, [facility] [place] [facility] [address] [id number] [place] [address]- 1622 Feb, [facility] [place] [facility] [address] [id number] [place] [address]- 5806 Feb, [facility] [place] [facility] [address] [id number] [place] [address]- 1256 Feb, [facility] [place] [facility] [address] [id number] [place] [address]- 8028 Jan, [facility] [place] [facility] [address] [id number] [place] [address]- 6445 Jan, [facility] [place] [facility] [address] [id number] [place] [address]- 7165 Jan, [facility] [place] [facility] [address] [id number] [place] [address]- 3160 Jan, [facility] [place] [facility] [address] [id number] [place] [address]- 8386 Jan, [facility] [place] [facility] [address] [id number] [place] [address]- 1572 Jan, [facility] [place] [facility] [address] [id number] [place] [address]- 2507 Jan, [facility] [place] [facility] [address] [id number] [place] [address]- 5769 Jan, General weakness R53.1 and Dementia with behavioral disturbance, unspecified dementia type F03.91 [facility] [id number] [place] [address] 88324- 9843 December, [facility] [id number] [place] [address] 85819- 6815 December, Other chronic pain G89.29 [facility] [id number] [place] [address] 37864- 2531 December, [facility] [id number] [place] [address] 63856- 3047 December, Unsteady gait R26.81 ; Generalized weakness R53.1 ; Unspecified mental disorder due to known physiological condition F09 and Generalized headaches R51 [facility] [id number] [place] [address] 19809- 0286 December, [facility] [id number] [place] [address] 31290- 2259 Nov, Anxiety F41.9 [facility] [id number] [place] [address] 74760- 1957 Nov, Mood disorder F39 [facility] [id number] [place] [address] 43970- 3971 Oct, [facility] [id number] [place] [address] 78044- 1635 Oct, Anxiety F41.9 [facility] [id number] [place] [address] 52127- 0060 Oct, Other chronic pain G89.29 [facility] [id number] [place] [address] 97722- 5825 Sep, Other chronic pain G89.29 ; Pain in left knee M25.562 ; Pain in right knee M25.561 and Anxiety F41.9 [facility] [id number] [place] [address] 64374- 6204 Sep, MDD (major depressive disorder), recurrent episode, mild F33.0 ; Degenerative brain disorder G31.9 and Other senior care (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 Z79.899 [facility] [id number] [place] [address] 10753- 4115 Sep, [facility] [id number] [place] [address] 52818- 7665 Sep, [facility] [address] 75063- 6528 Sep, Mood disorder F39 ; Pain of left leg M79.605 and Pain in right leg M79.604 [facility] [address] 96088- 2644 Sep, Seizures R56.9 [facility] [address] 05387- 3011 Sep, [facility] [id number] [place] [address] 95905- 3277 Sep, [facility] [id number] [place] [address] 90349- 5266 Sep, [facility] [id number] [place] [address] 41214- 2145 Aug, Bronchitis J40 [facility] [id number] [place] [address] 35066- 9864 Aug, Bronchitis J40 and Encounter for drug screening Z02.83 [facility] [id number] [place] [address] 29587- 0041 Aug, [facility] [address] 26914- 5007 Aug, Seizures R56.9 [facility] [id number] [place] [address] 97553- 1347 Aug, Seizures R56.9 [facility] [address] 07594- 6316 Aug, Major depressive disorder, recurrent, moderate F33.1 and Seizures R56.9 [place] [address] [place] [address] 17567- 2128 Aug, [facility] [id number] [place] [address] 50187- 5678 Aug, [place] [id number] [place] [address] 34496- 3128 Aug, Major depressive disorder, recurrent, moderate F33.1 and Seizures R56.9 [place] [id number] [place] [address] 38786- 2348 Jul, Major depressive disorder, recurrent, moderate F33.1 and Degenerative brain disorder G31.9 [place] [id number] [place] [address] 90840- 8175 Jul, Seizures R56.9 [place] [id number] [place] [address] 95879- 0536 Apr, [place] [id number] [place] [address] 08716- 2717 Apr, Major depressive disorder, recurrent, moderate F33.1 ; Anxiety F41.9 and Degenerative brain disorder G31.9 [place] [id number] [place] [address] 44587- 1336 Apr, Mood disorder F39 [place] [id number] [place] [address] 04894- 9987 Apr, Arthritis M19.90 [place] [address] [place] [address] 46720- 6561 Mar, Arthritis M19.90 ; Degenerative brain disorder G31.9 and Nonintractable generalized idiopathic epilepsy without status epilepticus G40.309 [place] [address] [place] [address] 72391- 9237 Feb, IMMUNIZATIONS No Known Immunizations SOCIAL HISTORY Never Assessed REASON FOR VISIT medication change, per pharmacy recommendation, senior living patient PLAN OF CARE VITAL SIGNS MEDICATIONS Unknown Medications RESULTS No Results PROCEDURES No Known procedures INSTRUCTIONS MEDICATIONS ADMINISTERED No Known Medications MEDICAL (GENERAL) HISTORY Type Description Date Medical History Toxoplasmosis Medical History migraine Medical History dementia Medical History depression Medical History alzheimers disease Medical History epilepsy Medical History COPD Surgical History cholecystectomy Surgical History appendectomy Surgical History 27 brain surgeries including shunt, [place] Surgical History neck fusion 09/26, 09/28 Surgical History right hand surgery Hospitalization History surgeries Hospitalization History seizures 12/2015
--- OUTSIDE RECORDS SUMMARY | 2018-07-01 14:03 | XMS REPORT ---
Author Author MADELYN HAHN Organization [facility] Address [address] [place] [address] Care Team Providers Care Cut Off Sawyer Name Role Phone MADELYN HAHN Unavailable PROBLEMS Type Condition ICD9-CM Code XWE41-RX Code Onset Dates Condition Status SNOMED Code Problem Unspecified mental disorder due to known physiological condition F09 Active 606951084 Problem Major depressive disorder, recurrent, moderate F33.1 Active 21874401 Problem Dementia with behavioral disturbance, unspecified dementia type F03.91 Active 2201153501532 Problem Mood disorder F39 Active 02973792 Problem Other chronic pain G89.29 Active 42993078 Problem Anxiety F41.9 Active 97311922 Problem Unsteady gait R26.81 Active 60960928 Problem History of brain shunt Z98.2 Active 730007265 Problem PTSD (post-traumatic stress disorder) F43.10 Active 10142130 Problem Sleep apnea, unspecified type G47.30 Active 50784606 Problem Degenerative brain disorder G31.9 Active 00266122 Problem Depressive disorder, not elsewhere classified F32.9 Active 70213445 Problem Other chronic pain G89.29 Active 42276846 ALLERGIES No Information ENCOUNTERS Encounter Location Date Diagnosis [place] [id number] [place] [address] 60921- 8074 May, [facility] [address] [place] [address] 62002- 3131 24 Apr, 2018 PTSD (post-traumatic stress disorder) F43.10 [facility] [id number] [place] [address] 08307- 4952 Apr, [facility] [address] [place] [address] 66178- 0212 Apr, History of brain shunt Z98.2 [place] [address] [address] 8313 10 Apr, 2018 PTSD (post-traumatic stress disorder) F43.10 [facility] [address] [place] [address] 17226 2546 07 Apr, 2018 History of brain shunt Z98.2 [facility] [address] [address] 2546 04 Apr, 2018 History of brain shunt Z98.2 [facility] [address] [place] [id number] Mar, History of brain shunt Z98.2 ; Depressive disorder, not elsewhere classified F32.9 ; Degenerative brain disorder G31.9 ; Unsteady gait R26.81 ; Other chronic pain G89.29 and Daily headache R51 [place] [address] [place] [address] 97831- 6301 Mar, PTSD (post-traumatic stress disorder) F43.10 [place] [id number] [place] [address] 92024- 3796 Mar, [place] [id number] [place] [address] 88758- 1866 Feb, PTSD (post-traumatic stress disorder) F43.10 [place] [address] [address] 9426 Feb, PTSD (post-traumatic stress disorder) F43.10 [place] [address] [address] 2543 Feb, Other chronic pain G89.29 and Pain in right knee M25.561 [place] [id number] [place] [address] 84300- 6816 Feb, PTSD (post-traumatic stress disorder) F43.10 [place] [address], [place] [address] 2546 Feb, [facility] [address] [place] [id number] Jan, Dementia with behavioral disturbance, unspecified dementia type F03.91 ; Other chronic pain G89.29 and Plantar fasciitis M72.2 [facility] [address] [place] [id number] Jan, Daily headache R51 ; History of brain shunt Z98.2 ; Plantar fasciitis of left foot M72.2 ; Pain in right knee M25.561 and Pain in left knee M25.562 [facility] [id number] [place] [address] 43962- 7588 14 Jan, 2018 [facility] [id number] [place] [address] 62727- 7482 07 Jan, 2018 Pain in right knee M25.561 [facility] [id number] [place] [address] 37354- 7800 Jan, [facility] [id number] [place] [address] 03251- 0228 Jan, [facility] [id number] [place] [address] 86989- 7635 Jan, [facility] [id number] [place] [address] 49923- 8056 December, Other chronic pain G89.[address] [facility] [address] [id number] December, Pain in left knee M25.562 ; Pain in right leg M79.604 ; Other chronic pain G89.29 ; Localized edema R60.0 and PTSD (post-traumatic stress disorder) F43.10 [facility] [address], [place] [address]- 3488 December, [facility] [id number] [place] [address] 61355- 8699 December, PTSD (post-traumatic stress disorder) F43.10 [facility] [address] [place] [address] 09798- 7352 December, [facility] [id number] [place] [address] 16418- 6866 December, [facility] [id number] [place] [address] 43589- 6615 December, Depressive disorder, not elsewhere classified F32.9 and Cognitive change R41.89 [facility] [address] [place] [address] 76025- 7790 Nov, Major depressive disorder, recurrent, moderate F33.1 [facility] [id number] [place] [address] 12052- 6861 Nov, [facility] [id number] [place] [address] 27696- 3237 Nov, [facility] [id number] [place] [address] 46236- 2540 Nov, [facility] [id number] [place] [address] 47867- 8706 Nov, [facility] [id number] [place] [address] 10623- 8529 Nov, Mood disorder F39 [facility] [id number] [place] [address] 88500- 1523 Nov, Depressive disorder, not elsewhere classified F32.9 and Cognitive change R41.89 [facility] [address] [place] [address] 79199- 3309 Nov, [facility] [id number] [place] [address] 59699- 0398 Nov, [facility] [address] [place] [id number] Oct, Tear of skin of plantar aspect of right foot, initial encounter S91.311A [facility] [id number] [place] [address] 70957- 2913 Oct, [facility] [address] [place] [address] 86913- 1657 Oct, [facility] [address] [place] [address] [id number] [id number] Oct, [facility] [address] [id number] [id number] Oct, [facility] [id number] [id number] Sep, [facility] [id number] [id number] Sep, [facility] [address] [place] [id number] [id number] Sep, [facility] [id number] [id number] Sep, [facility] [address], [place] [address]- 1146 Sep, [facility] [id number] [address]- 0436 Sep, Other chronic pain G89.29 and Pain in left knee M25.562 [facility] [id number], [place] [address]- 9266 Sep, [facility] [address] [place] [id number] Sep, Plantar fasciitis of left foot M72.2 and Pain in right knee M25.561 [facility] [id number] [id number] Aug, [facility] [id number], [place] [address]- 0866 Aug, [facility] [id number], [place] [address]- 7229 Aug, [facility] [address], [place] [address]- 0557 Aug, Chronic daily headache R51 [facility] [id number], [place] [address]- 0508 Aug, [facility] [place] [address] [place] [id number] Aug, Edema, unspecified type R60.9 ; Weight gain R63.5 and Sleep apnea, unspecified type G47.[address] [facility] [address] [id number] Jul, Acute pain of left knee M25.562 and Plantar fasciitis of left foot M72.2 [facility] [address], [place] [address]- 9846 Jul, [facility] [address] [id number] Jul, Plantar fasciitis of left foot M72.2 and Chronic daily headache R51 [facility] [address] [place] [id number] [place] [address] [id number] Jul, [facility] [id number] [place] [address] [id number] Jun, [facility] [address], [place] [address]- 0446 Jun, [facility] [id number] [place] [address] [id number] Jun, [facility] [id number] [place] [address] [id number] Jun, [facility] [id number] [place] [address] [id number] May, [facility] [id number] [place] [address] [id number] May, [facility] [address], [place] [address]- 5506 May, Stress incontinence of urine N39.3 [facility] [id number] [place] [id number] May, [facility] [id number] May, Encounter for examination for admission to fpc Z02.2 ; Toxoplasmosis B58.9 ; Seizures R56.9 ; Major depressive disorder, recurrent, moderate F33.1 ; Degenerative brain disorder G31.9 and Unsteady gait R26.81 [facility] [id number] [place] [address] 54668- 6689 May, [facility] [id number] [place] [address] 66396- 8651 May, Mood disorder F39 [facility] [id number] [place] [address] 15912- 1657 May, [facility] [id number] [place] [address] 74503- 5932 Apr, [facility] [id number] [place] [address] 88149- 7456 Mar, [facility] [id number] [place] [address] 15258- 9025 Mar, [facility] [id number] [place] [address] 67662- 2604 Mar, [facility] [id number] [place] [address] 71168- 1184 Mar, [facility] [id number] [place] [address] 14219- 5281 Mar, [facility] [id number] [place] [address] 45785- 7117 Mar, Stress incontinence of urine N39.3 [facility] [id number] [place] [address] [id number] Mar, [facility] [id number] [place] [address] 61092- 1685 Feb, [facility] [id number] [place] [address] 10034- 5931 Feb, [facility] [id number] [place] [address] 59761- 2011 Feb, [facility] [address] [facility] [id number] [place] [address]- 0420 Feb, [facility] [address] [facility] [id number] [place] [address]- 0250 Feb, [facility] [address] [facility] [id number] [place] [address]- 6351 Feb, [facility] [address] [facility] [id number] [place] [address]- 0216 Feb, [facility] [address] [facility] [id number] [place] [address]- 5596 Jan, [facility] [address] [facility] [id number] [place] [address]- 3212 Jan, [facility] [address] [place] [address] [id number] [place] [address]- 1510 Jan, [facility] [address] [place] [address]- 0362 Jan, [facility] [address], [place] [address]- 5828 Jan, [facility] [address], [place] [address]- 2859 Jan, [facility] [address], [place] [address]- 9559 Jan, [facility] [address], [place] [address]- 8924 Jan, General weakness R53.1 and Dementia with behavioral disturbance, unspecified dementia type F03.91 [facility] [address] [facility] [id number], [place] [address]- 1301 December, [facility] [id number], [place] [address]- 0286 December, Other chronic pain G89.29 [facility] [address], [place] [address]- 3149 December, [facility] [address] [place] [address] 05750- 3728 December, Unsteady gait R26.81 ; Generalized weakness R53.1 ; Unspecified mental disorder due to known physiological condition F09 and Generalized headaches R51 [facility] [id number] [place] [address] 66775- 4573 December, [facility] [id number] [place] [address] 58624- 3389 Nov, Anxiety F41.9 [facility] [id number] [place] [address] 56802- 5929 Nov, Mood disorder F39 [facility] [id number] [place] [address] 68460- 3109 Oct, [place] [id number] [place] [address] 15787- 9069 Oct, Anxiety F41.9 [facility] [id number] [place] [address] 84197- 8898 Oct, Other chronic pain G89.29 [place] [id number] [place] [address] 65214- 5283 Sep, Other chronic pain G89.29 ; Pain in left knee M25.562 ; Pain in right knee M25.561 and Anxiety F41.9 [place] [id number] [place] [address] 81550- 4832 Sep, MDD (major depressive disorder), recurrent episode, mild F33.0 ; Degenerative brain disorder G31.9 and 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 [facility] [id number] [place] [address] 82589- 0049 Sep, [facility] [id number] [place] [address] 80592- 5277 Sep, [facility] [id number] [place] [address] 81785- 9395 Sep, Mood disorder F39 ; Pain of left leg M79.605 and Pain in right leg M79.604 [facility] [id number] [place] [address] 31867- 8216 14 Sep, 2016 Seizures R56.9 [facility] [id number] [place] [address] 64848 2546 Sep, [facility] [address] [address] 2542 Sep, [facility] [id number] [place] [address] 99081- 8583 Sep, [facility] [id number] [place] [address] 32938- 5291 Aug, Bronchitis J40 [facility] [address] 23130- 8635 Aug, Bronchitis J40 and Encounter for drug screening Z02.83 [facility] [id number] [place] [address] 76806- 1994 Aug, [facility] [id number] [place] [address] 93143- 8752 Aug, Seizures R56.9 [facility] [id number] [place] [address] 28367 2546 Aug, Seizures R56.9 [facility] [id number] [place] [address] 22167 2547 Aug, Major depressive disorder, recurrent, moderate F33.1 and Seizures R56.9 [facility] [id number] [place] [address] 08322 2546 Aug, [facility] [id number] [place] [address] 04433- 0694 Aug, [facility] [id number] [place] [address] 10327- 8951 Aug, Major depressive disorder, recurrent, moderate F33.1 and Seizures R56.9 [place] [address] [place] [address] 51542- 3897 Jul, Major depressive disorder, recurrent, moderate F33.1 and Degenerative brain disorder G31.9 [place] [id number] [place] [address] 77830- 5943 Jul, Seizures R56.9 [place] [address] 60272- 8803 Apr, [place] [address] 43334- 0087 Apr, Major depressive disorder, recurrent, moderate F33.1 ; Anxiety F41.9 and Degenerative brain disorder G31.9 [place] [id number] [place] [address] 15253- 0357 Apr, Mood disorder F39 [place] [id number] [place] [address] 37919- 5050 Apr, Arthritis M19.90 [place] [id number] [place] [address] 89054- 4115 Mar, Arthritis M19.90 ; Degenerative brain disorder G31.9 and Nonintractable generalized idiopathic epilepsy without status epilepticus G40.309 [place] [id number] [place] [address] 17020- 4300 Feb, IMMUNIZATIONS No Known Immunizations SOCIAL HISTORY Never Assessed REASON FOR VISIT f/immanuel Blancas RN PLAN OF CARE Activity Details Follow Up July Reason: VITAL SIGNS Height 65 in 2018-05-01 Weight 183 lbs 2018-05-01 Heart Rate 88 bpm 2018-05-01 Respiratory Rate 20 2018-05-01 BMI 30.45 kg/m2 2018-05-01 Blood pressure systolic 130 mmHg 2018-05-01 Blood pressure diastolic 78 mmHg 2018-05-01 MEDICATIONS Medication Instructions Dosage Frequency Start Date End Date Duration Status Naproxen 500 MG Orally every 12 hrs 1 tablet as needed 12h 30 Active Levetiracetam 500 MG Orally Twice a day 1 tablet 12h Active Potassium Chloride Noni ER 20 meq Orally Once a day 1 tablet with food 24h December, Apr, 30 day(s) Active Ondansetron 4 MG Orally every 8 hrs PRN 1 tablet on the tongue and allow to dissolve Aug, Active Furosemide 40 mg Orally Once a day in AM 1 tablet 08 Sep, 2017 30 day (s) Active Ditropan XL 5 mg Orally Once a day 1 tablet 24h Mar, 30 day(s) Active Colace 100 mg Orally twice a day 1 capsule 12h Active Biofreeze 4 % Externally Once a day at bedtime 1 applicationt both ankles Active Neurontin 300 MG Orally 3 times a day 1 capsule 8h Aug, Active Amitriptyline HCl 50 MG Orally Once a day at bedtime 1 tablet Active Percocet 7.5-325 MG Orally every 6 hrs 1 tablet as needed 6h Mar, 28 days Active ProAir HFA 108 (90 Base) MCG/ACT Inhalation every 4 hrs 2 puffs as needed for cough or short of breath 4h 30 Active Depakote 500 MG Active Memantine HCl 5 MG TAKE 1 TABLET BY MOUTH ONCE DAILY 30 Active Zyrtec Allergy 10 mg Orally Once a day 1 tablet as needed 24h May, 30 day(s) Active Clonazepam 1 MG Orally Twice a day 1/2 tab in the AM and 1 tab in the PM 12h Sep, Active Omeprazole 20 mg Orally Once a day 1 capsules 24h Active Clonidine HCl 0.1 MG Orally Twice a day 1 tablet 12h Active RESULTS No Results PROCEDURES No Known procedures INSTRUCTIONS MEDICATIONS ADMINISTERED No Known Medications MEDICAL (GENERAL) HISTORY Type Description Date Medical History Toxoplasmosis Medical History migraine Medical History dementia Medical History depression Medical History alzheimers disease Medical History epilepsy Medical History COPD Surgical History cholecystectomy Surgical History appendectomy Surgical History 27 brain surgeries including shunt, [place] Surgical History neck fusion 09/26, 09/28 Surgical History right hand surgery Hospitalization History surgeries Hospitalization History seizures 12/2015
--- OUTSIDE RECORDS SUMMARY | 2018-07-01 14:03 | XMS REPORT ---
Author Author ESTEPHANIA IVAN Organization [facility] Address [address] [place] [address] Care Team Providers Care Heel Cutter Name Role Phone ESTEPHANIA IVAN Unavailable PROBLEMS Type Condition ICD9-CM Code [id number] Code Onset Dates Condition Status SNOMED Code Problem Unspecified mental disorder due to known physiological condition F09 Active 659733709 Problem Major depressive disorder, recurrent, moderate F33.1 Active 00632074 Problem Dementia with behavioral disturbance, unspecified dementia type F03.91 Active 1411453474495 Problem Mood disorder F39 Active 87556465 Problem Other chronic pain G89.29 Active 77319428 Problem Anxiety F41.9 Active 12342069 Problem Unsteady gait R26.81 Active 82204660 Problem History of brain shunt Z98.2 Active 968835513 Problem PTSD (post-traumatic stress disorder) F43.10 Active 54007368 Problem Sleep apnea, unspecified type G47.30 Active 69267383 Problem Degenerative brain disorder G31.9 Active 71641264 Problem Depressive disorder, not elsewhere classified F32.9 Active 67635073 Problem Other chronic pain G89.29 Active 40347071 ALLERGIES No Information ENCOUNTERS Encounter Location Date Diagnosis [place] [address] [address] May, [place] [id number] [place] [address] 26683- 0640 24 Apr, 2018 PTSD (post-traumatic stress disorder) F43.10 [place] [address] [address] Apr, [place] [address] [place] [id number] [address] Apr, History of brain shunt Z98.2 [place] [id number] [address] 0721 10 Apr, 2018 PTSD (post-traumatic stress disorder) F43.10 [facility] [id number] [place] [address] 22939 2546 07 Apr, 2018 History of brain shunt Z98.2 [facility] [address] [address] 2546 04 Apr, 2018 History of brain shunt Z98.2 [facility] [address] [place] [address] Mar, History of brain shunt Z98.2 ; Depressive disorder, not elsewhere classified F32.9 ; Degenerative brain disorder G31.9 ; Unsteady gait R26.81 ; Other chronic pain G89.29 and Daily headache R51 [place] [address] [place] [address] 37387- 9007 Mar, PTSD (post-traumatic stress disorder) F43.10 [place] [address] [address] Mar, [facility] [id number] [place] [address] 32053- 4556 Feb, PTSD (post-traumatic stress disorder) F43.10 [facility] [address] [address] 2546 Feb, PTSD (post-traumatic stress disorder) F43.10 [place] [address] [place] [address] 00275 2548 Feb, Other chronic pain G89.29 and Pain in right knee M25.561 [place] [address] [place] [id number] [place] [address] 19996- 4476 Feb, PTSD (post-traumatic stress disorder) F43.10 [facility] [address] [address] 2546 Feb, [facility] [address] [place] [id number] Jan, Dementia with behavioral disturbance, unspecified dementia type F03.91 ; Other chronic pain G89.29 and Plantar fasciitis M72.[address] [facility] [address] [id number] Jan, Daily headache R51 ; History of brain shunt Z98.2 ; Plantar fasciitis of left foot M72.2 ; Pain in right knee M25.561 and Pain in left knee M25.562 [facility] [id number] [place] [address] 84933- 4335 14 Jan, 2018 [facility] [id number] [place] [address] 22458- 8751 Jan, Pain in right knee M25.561 [facility] [id number] [place] [address] 43382- 9212 Jan, [facility] [id number] [place] [address] 85664- 3641 Jan, [facility] [id number] [place] [address] 50155- 7775 Jan, [facility] [id number] [place] [address] 57805- 7991 December, Other chronic pain G89.[address] [facility] [address] [id number] December, Pain in left knee M25.562 ; Pain in right leg M79.604 ; Other chronic pain G89.29 ; Localized edema R60.0 and PTSD (post-traumatic stress disorder) F43.10 [facility] [address] [address] 14[address] December, [facility] [id number] [place] [address] 80964- 8707 December, PTSD (post-traumatic stress disorder) F43.10 [facility] [id number] [address] 2145 December, [facility] [id number] [place] [address] 46531- 3561 December, [facility] [id number] [place] [address] 02400- 8986 December, Depressive disorder, not elsewhere classified F32.9 and Cognitive change R41.89 [facility] [address] [place] [address] 63810- 9407 Nov, Major depressive disorder, recurrent, moderate F33.1 [facility] [id number] [place] [address] 94459- 3129 Nov, [facility] [id number] [place] [address] 13693- 2241 Nov, [facility] [id number] [place] [address] 10646- 4754 Nov, [facility] [id number] [place] [address] 73509- 2925 Nov, [facility] [id number] [place] [address] 25188- 1818 Nov, Mood disorder F39 [facility] [id number] [place] [address] 81396- 8734 Nov, Depressive disorder, not elsewhere classified F32.9 and Cognitive change R41.89 [facility] [address] [place] [address] 12089- 9152 Nov, [facility] [id number] [place] [address] 61453- 0039 Nov, [facility] [address] [place] [id number] Oct, Tear of skin of plantar aspect of right foot, initial encounter S91.311A [facility] [id number] [place] [address] 96269- 0490 Oct, [facility] [address] [place] [address] 25208- 9077 Oct, [facility] [address] [id number] [id number] Oct, [facility] [id number] [place] [id number] Oct, [facility] [id number] [address] Sep, [facility] [id number] [id number] Sep, [facility] [address] [place] [id number] [address] Sep, [facility] [id number] [place] [address] Sep, [facility] [address] [address] 5156 Sep, [facility] [address] [address]- 2556 Sep, Other chronic pain G89.29 and Pain in left knee M25.562 [facility] [address] [address] 4806 Sep, [facility] [address] [place] [id number] Sep, Plantar fasciitis of left foot M72.2 and Pain in right knee M25.561 [facility] [id number] [address] Aug, [facility] [id number] [address] 9425 Aug, [facility] [id number] [address]- 3064 Aug, [facility] [address] [address] 4723 Aug, Chronic daily headache R51 [facility] [address] [id number] [address] 6007 Aug, [facility] [address] [place] [id number] Aug, Edema, unspecified type R60.9 ; Weight gain R63.5 and Sleep apnea, unspecified type G47.30 [facility] [address] [place] [address] Jul, Acute pain of left knee M25.562 and Plantar fasciitis of left foot M72.2 [facility] [address] [address]- 8846 Jul, [facility] [address] [place] [id number] Jul, Plantar fasciitis of left foot M72.2 and Chronic daily headache R51 [facility] [id number] [place] [address] Jul, [facility] [address] [place] [id number] [id number] Jun, [facility] [id number] [address]- 1222 Jun, [facility] [id number] [place] [address] [id number] Jun, [facility] [address] [place] [id number] [address] Jun, [facility] [address] [place] [id number] [address] May, [facility] [id number] [place] [address] [id number] May, [facility] [id number] [address]- 7455 May, Stress incontinence of urine N39.3 [facility] [id number] [place] [id number] May, [facility] [id number] May, Encounter for examination for admission to correction Z02.2 ; Toxoplasmosis B58.9 ; Seizures R56.9 ; Major depressive disorder, recurrent, moderate F33.1 ; Degenerative brain disorder G31.9 and Unsteady gait R26.81 [facility] [id number] [place] [address] 03418- 7794 May, [facility] [id number] [place] [address] 03637- 3589 May, Mood disorder F39 [facility] [id number] [place] [address] 48338- 0923 May, [facility] [id number] [place] [address] 67730- 9660 Apr, [facility] [id number] [place] [address] 82933- 4417 Mar, [facility] [id number] [place] [address] 70815- 3957 Mar, [facility] [id number] [place] [address] 33968- 7814 Mar, [facility] [id number] [place] [address] 97284- 5876 Mar, [facility] [id number] [place] [address] 53751- 6704 Mar, [facility] [id number] [place] [address] 19954- 6082 Mar, Stress incontinence of urine N39.3 [facility] [id number] [place] [address] [id number] Mar, [facility] [id number] [place] [address] 40404- 4665 Feb, [facility] [id number] [place] [address] 79596- 2630 Feb, [facility] [id number] [place] [address] 99154- 5425 Feb, [facility] [address] [facility] [id number] [place] [address]- 7438 Feb, [facility] [address] [facility] [id number] [place] [address]- 8462 Feb, [facility] [address] [facility] [id number] [place] [address]- 6354 Feb, [facility] [address] [facility] [id number] [place] [address]- 6744 Feb, [facility] [address] [facility] [id number] [place] [address]- 3732 Jan, [facility] [address] [facility] [id number] [place] [address]- 5841 Jan, [facility] [address] [place] [address] [id number] [address]- 6642 Jan, [facility] [address] [place] [address] [id number] [place] [address]- 0884 Jan, [facility] [address] [place] [address] [id number] [address]- 3822 Jan, [facility] [address] [address]- 3702 Jan, [facility] [address] [place] [address]- 1014 Jan, [facility] [address] [id number] [address]- 8335 Jan, General weakness R53.1 and Dementia with behavioral disturbance, unspecified dementia type F03.91 [facility] [address] [facility] [id number] [place] [address]- 1818 December, [facility] [address] [facility] [id number] [place] [address]- 6719 December, Other chronic pain G89.29 [facility] [id number] [address]- 6434 December, [facility] [address] [place] [address] 68286- 7057 December, Unsteady gait R26.81 ; Generalized weakness R53.1 ; Unspecified mental disorder due to known physiological condition F09 and Generalized headaches R51 [facility] [id number] [place] [address] 61414- 2005 December, [facility] [id number] [place] [address] 12270- 8357 Nov, Anxiety F41.9 [facility] [id number] [place] [address] 49230- 3961 Nov, Mood disorder F39 [facility] [address] [id number] [place] [address] 55681- 8815 Oct, [facility] [id number] [place] [address] 31495- 0495 Oct, Anxiety F41.9 [facility] [id number] [place] [address] 58854- 6689 Oct, Other chronic pain G89.29 [facility] [address] [id number] [place] [address] 45853- 8746 Sep, Other chronic pain G89.29 ; Pain in left knee M25.562 ; Pain in right knee M25.561 and Anxiety F41.9 [facility] [id number] [place] [address] 28681- 0363 Sep, MDD (major depressive disorder), recurrent episode, mild F33.0 ; Degenerative brain disorder G31.9 and 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 [facility] [id number] [place] [address] 64454- 8119 Sep, [facility] [id number] [place] [address] 99995- 6440 Sep, [facility] [id number] [place] [address] 78411- 3648 Sep, Mood disorder F39 ; Pain of left leg M79.605 and Pain in right leg M79.604 [facility] [id number] [place] [address] 85004- 3991 14 Sep, 2016 Seizures R56.9 [facility] [id number] [place] [address] 42009 2546 Sep, [facility] [address] 80792- 3219 Sep, [facility] [address] 29159- 2182 Sep, [facility] [id number] [place] [address] 36139- 9246 Aug, Bronchitis J40 [facility] [address] 48935- 1795 Aug, Bronchitis J40 and Encounter for drug screening Z02.83 [facility] [id number] [place] [address] 06618- 4775 Aug, [facility] [id number] [place] [address] 89745- 8082 Aug, Seizures R56.9 [facility] [id number] [place] [address] 00376 254 Aug, Seizures R56.9 [facility] [id number] [place] [address] 01573 2548 Aug, Major depressive disorder, recurrent, moderate F33.1 and Seizures R56.9 [facility] [id number] [place] [address] 76420 2546 Aug, [facility] [id number] [place] [address] 18642- 4225 Aug, [facility] [id number] [place] [address] 25743- 9725 Aug, Major depressive disorder, recurrent, moderate F33.1 and Seizures R56.9 [place] [id number] [place] [address] 85526- 5654 Jul, Major depressive disorder, recurrent, moderate F33.1 and Degenerative brain disorder G31.9 [place] [id number] [place] [address] 51144- 1700 Jul, Seizures R56.9 [place] [address] 405241- 6687 Apr, [place] [id number] [place] [address] 11532- 2479 Apr, Major depressive disorder, recurrent, moderate F33.1 ; Anxiety F41.9 and Degenerative brain disorder G31.9 [place] [id number] [place] [address] 34728- 2938 Apr, Mood disorder F39 [place] [id number] [place] [address] 21036- 1319 Apr, Arthritis M19.90 [place] [id number] [place] [address]- 4976 Mar, Arthritis M19.90 ; Degenerative brain disorder G31.9 and Nonintractable generalized idiopathic epilepsy without status epilepticus G40.309 [place] [id number] [place] [address]- 5502 Feb, IMMUNIZATIONS No Known Immunizations SOCIAL HISTORY Never Assessed REASON FOR VISIT Controlled Med Refill PLAN OF CARE VITAL SIGNS MEDICATIONS Medication Instructions Dosage Frequency Start Date End Date Duration Status Clonazepam 1 MG Orally Twice a day 1/2 tab in the AM and 1 tab in the PM 12h Sep, Active RESULTS No Results PROCEDURES No Known procedures INSTRUCTIONS MEDICATIONS ADMINISTERED No Known Medications MEDICAL (GENERAL) HISTORY Type Description Date Medical History Toxoplasmosis Medical History migraine Medical History dementia Medical History depression Medical History alzheimers disease Medical History epilepsy Medical History COPD Surgical History cholecystectomy Surgical History appendectomy Surgical History 27 brain surgeries including shunt, [place] Surgical History neck fusion 09/26, 09/28 Surgical History right hand surgery Hospitalization History surgeries Hospitalization History seizures 12/2015
--- OUTSIDE RECORDS SUMMARY | 2018-07-01 14:04 | XMS REPORT ---
Author Author ESTEPHANIA IVAN Organization [facility] Address [address] [place] [address] Care Team Providers Care Codifier Name Role Phone ESTEPHANIA IVAN Unavailable PROBLEMS Type Condition ICD9-CM Code ZQG83-KG Code Onset Dates Condition Status SNOMED Code Problem Unspecified mental disorder due to known physiological condition F09 Active 068787635 Problem Major depressive disorder, recurrent, moderate F33.1 Active 13775427 Problem Dementia with behavioral disturbance, unspecified dementia type F03.91 Active 6670431738018 Problem Mood disorder F39 Active 80148622 Problem Other chronic pain G89.29 Active 89885675 Problem Anxiety F41.9 Active 11263822 Problem Unsteady gait R26.81 Active 65637350 Problem History of brain shunt Z98.2 Active 097018533 Problem PTSD (post-traumatic stress disorder) F43.10 Active 67730760 Problem Sleep apnea, unspecified type G47.30 Active 23783056 Problem Degenerative brain disorder G31.9 Active 04867353 Problem Depressive disorder, not elsewhere classified F32.9 Active 12517803 Problem Other chronic pain G89.29 Active 36957168 ALLERGIES No Information ENCOUNTERS Encounter Location Date Diagnosis [place] [address], [place] [address] May, [place] [id number] [place] [address] 33012- 0294 24 Apr, 2018 PTSD (post-traumatic stress disorder) F43.10 [place] [address], [place] [address] Apr, [place] [address] [place] [id number], [place] [address] 6[address] Apr, History of brain shunt Z98.2 [place] [address], [place] [address] 10 Apr, 2018 PTSD (post-traumatic stress disorder) F43.10 [facility] [address] [place] [address] 81683 2546 07 Apr, 2018 History of brain shunt Z98.2 [facility] [address], [place] [address] 2546 04 Apr, 2018 History of brain shunt Z98.2 [facility] [address] [id number] Mar, History of brain shunt Z98.2 ; Depressive disorder, not elsewhere classified F32.9 ; Degenerative brain disorder G31.9 ; Unsteady gait R26.81 ; Other chronic pain G89.29 and Daily headache R51 [place] [address] [place] [address] 80009- 0290 Mar, PTSD (post-traumatic stress disorder) F43.10 [place] [address], [place] [address] Mar, [facility] [address] [id number] [place] [address] 16349- 3446 Feb, PTSD (post-traumatic stress disorder) F43.10 [facility] [address], [place] [address] 2546 Feb, PTSD (post-traumatic stress disorder) F43.10 [place] [address] [place] [address] 09363 2549 Feb, Other chronic pain G89.29 and Pain in right knee M25.561 [place] [address] [place] [id number] [place] [address] 25117- 5516 Feb, PTSD (post-traumatic stress disorder) F43.10 [facility] [address], [place] [address] 2546 Feb, [facility] [address] [id number] Jan, Dementia with behavioral disturbance, unspecified dementia type F03.91 ; Other chronic pain G89.29 and Plantar fasciitis M72.[address] [facility] [address] [id number] Jan, Daily headache R51 ; History of brain shunt Z98.2 ; Plantar fasciitis of left foot M72.2 ; Pain in right knee M25.561 and Pain in left knee M25.562 [facility] [address] [id number] [place] [address] 96021- 3885 14 Jan, 2018 [facility] [address] [id number] [place] [address] 23451- 6765 Jan, Pain in right knee M25.561 [facility] [address] [id number] [place] [address] 98704- 6406 Jan, [facility] [address] [id number] [place] [address] 76373- 1448 Jan, [facility] [address] [id number] [place] [address] 49621- 4856 Jan, [facility] [address] [id number] [place] [address] 09495- 7602 December, Other chronic pain G89.[address] [facility] [address] [id number] December, Pain in left knee M25.562 ; Pain in right leg M79.604 ; Other chronic pain G89.29 ; Localized edema R60.0 and PTSD (post-traumatic stress disorder) F43.10 [facility] [address], [place] [address] December, [facility] [address] [id number] [place] [address] 57296- 8815 December, PTSD (post-traumatic stress disorder) F43.10 [facility] [address] [place] [address] [address] 3[address] December, [facility] [id number] [place] [address] 14037- 5390 December, [facility] [id number] [place] [address] 38427- 9813 December, Depressive disorder, not elsewhere classified F32.9 and Cognitive change R41.89 [facility] [address] [place] [address] 01064- 4941 Nov, Major depressive disorder, recurrent, moderate F33.1 [facility] [id number] [place] [address] 40504- 2883 Nov, [facility] [id number] [place] [address] 19403- 5580 Nov, [facility] [address] [id number] [place] [address] 15378- 8889 Nov, [facility] [address] [id number] [place] [address] 44327- 1021 Nov, [facility] [id number] [place] [address] 17104- 0559 Nov, Mood disorder F39 [facility] [address] [place] [id number] [place] [address] 83683- 8866 Nov, Depressive disorder, not elsewhere classified F32.9 and Cognitive change R41.89 [facility] [address] [place] [address] 20169- 2656 Nov, [facility] [address] [place] [id number] [place] [address] 64388- 5871 Nov, [facility] [address] [id number] Oct, Tear of skin of plantar aspect of right foot, initial encounter S91.311A [facility] [address] [place] [id number] [place] [address] 14413- 7075 Oct, [facility] [address] [place] [address] 64213- 6342 Oct, [facility] [address] [place] [address] [id number] [id number] Oct, [facility] [id number] [id number] Oct, [facility] [id number] [id number] Sep, [facility] [id number] [id number] Sep, [facility] [address] [place] [address] [id number] [id number] Sep, [facility] [id number] [id number] Sep, [facility] [address], [place] [address] 4616 Sep, [facility] [address], [place] [address] 2586 Sep, Other chronic pain G89.29 and Pain in left knee M25.562 [facility] [address], [place] [address] 0686 Sep, [facility] [address] [id number] Sep, Plantar fasciitis of left foot M72.2 and Pain in right knee M25.561 [facility] [id number] [id number] Aug, [facility] [address] [id number], [place] [address] 0328 Aug, [facility] [address] [place] [id number], [place] [address]- 7774 Aug, [facility] [address] Aug, Chronic daily headache R51 [facility] [address] [id number], [place] [address] 5[address] Aug, [facility] [address] [id number] Aug, Edema, unspecified type R60.9 ; Weight gain R63.5 and Sleep apnea, unspecified type G47.30 [facility] [address] [id number] Jul, Acute pain of left knee M25.562 and Plantar fasciitis of left foot M72.2 [facility] [address], [place] [address]- 2156 Jul, [facility] [address] [id number] Jul, Plantar fasciitis of left foot M72.2 and Chronic daily headache R51 [facility] [id number] [id number] Jul, [facility] [address] [place] [id number] [id number] Jun, [facility] [address] [place] [id number], [place] [address] Jun, [facility] [id number] [place] [id number], [facility] [address] [place] [id number] [id number] Jun, [facility] [address] [place] [id number] [id number] May, [facility] [address] [id number] [place] [address] [id number] May, [facility] [address] [place] [id number], [place] [address]- 6651 May, Stress incontinence of urine N39.3 [facility] [id number] [address] May, [facility] [id number] May, Encounter for examination for admission to longterm Z02.2 ; Toxoplasmosis B58.9 ; Seizures R56.9 ; Major depressive disorder, recurrent, moderate F33.1 ; Degenerative brain disorder G31.9 and Unsteady gait R26.81 [facility] [address] [place] [id number] [place] [address] 80822- 3338 May, [facility] [address] [id number] [place] [address] 16713- 2137 May, Mood disorder F39 [facility] [id number] [place] [address] 63860- 2203 May, [facility] [address] [place] [id number] [place] [address] 66399- 6021 Apr, [facility] [address] [id number] [place] [address] 89579- 7060 Mar, [facility] [address] [id number] [place] [address] 49943- 9350 Mar, [facility] [address] [id number] [place] [address] 71639- 8830 Mar, [facility] [id number] [place] [address] 39350- 8847 Mar, [facility] [address] [place] [id number] [place] [address] 89771- 0196 Mar, [facility] [address] [id number] [place] [address] 93354- 6885 Mar, Stress incontinence of urine N39.3 [facility] [address] [id number] [place] [address] [id number] Mar, [facility] [address] [id number] [place] [address] 05664- 4972 Feb, [facility] [address] [id number] [place] [address] 73531- 2256 Feb, [facility] [address] [place] [id number] [place] [address] 68153- 8402 Feb, [facility] [address] [facility] [id number] [place] [address]- 1837 Feb, [facility] [address] [facility] [id number] [place] [address]- 7559 Feb, [facility] [address] [facility] [id number] [place] [address]- 7381 Feb, [facility] [address] [facility] [id number] [place] [address]- 3241 Feb, [facility] [address] [facility] [id number] [place] [address]- 9013 Jan, [facility] [address] [facility] [id number] [place] [address]- 7964 Jan, [facility] [address] [place] [id number] [place] [address]- 9011 Jan, [facility] [address] [place] [id number] [place] [address]- 8807 Jan, [facility] [address] [place] [id number] [place] [address]- 8174 Jan, [facility] [address], [place] [address]- 6535 Jan, [facility] [address] [place] [address]- 2538 Jan, [facility] [address] [place] [id number], [place] [address]- 5353 Jan, General weakness R53.1 and Dementia with behavioral disturbance, unspecified dementia type F03.91 [facility] [address] [facility] [id number], [place] [address]- 7655 December, [facility] [address] [facility] [id number], [place] [address]- 3144 December, Other chronic pain G89.29 [facility] [address] [place] [id number], [place] [address]- 2080 December, [facility] [address] [place] [address] 31323- 5185 December, Unsteady gait R26.81 ; Generalized weakness R53.1 ; Unspecified mental disorder due to known physiological condition F09 and Generalized headaches R51 [facility] [address] [id number] [place] [address] 04912- 7783 December, [facility] [address] [place] [id number] [place] [address] 62234- 8691 Nov, Anxiety F41.9 [facility] [address] [place] [id number] [place] [address] 63394- 6847 Nov, Mood disorder F39 [facility] [address] [place] [id number] [place] [address] 61371- 7403 Oct, [facility] [address] [place] [id number] [place] [address] 74406- 6435 Oct, Anxiety F41.9 [facility] [address] [id number] [place] [address] 08602- 7944 Oct, Other chronic pain G89.29 [facility] [address] [place] [id number] [place] [address] 62330- 0175 Sep, Other chronic pain G89.29 ; Pain in left knee M25.562 ; Pain in right knee M25.561 and Anxiety F41.9 [facility] [address] [place] [id number] [place] [address] 69072- 4102 Sep, MDD (major depressive disorder), recurrent episode, mild F33.0 ; Degenerative brain disorder G31.9 and 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 [facility] [address] [id number] [place] [address] 11633- 8635 Sep, [facility] [address] [id number] [place] [address] 29168- 7209 Sep, [facility] [address] [place] [id number] [place] [address] 31830- 4511 Sep, Mood disorder F39 ; Pain of left leg M79.605 and Pain in right leg M79.604 [facility] [address] [place] [id number] [place] [address] 71860- 6864 14 Sep, 2016 Seizures R56.9 [facility] [address] [place] [id number] [place] [address] 17801 2546 Sep, [facility] [address] 28067- 7472 Sep, [facility] [address] 33889- 9041 Sep, [facility] [address] [id number] [place] [address] 09772- 3774 Aug, Bronchitis J40 [facility] [address] 57288- 4743 Aug, Bronchitis J40 and Encounter for drug screening Z02.83 [facility] [address] [id number] [place] [address] 45016- 6980 Aug, [facility] [id number] [place] [address] 32579- 6804 Aug, Seizures R56.9 [facility] [address] [place] [id number] [place] [address] 81707 2545 Aug, Seizures R56.9 [facility] [address] [place] [id number] [place] [address] 48044 2549 Aug, Major depressive disorder, recurrent, moderate F33.1 and Seizures R56.9 [facility] [id number] [place] [address] 64278 2546 Aug, [facility] [id number] [place] [address] 28790- 9123 Aug, [facility] [id number] [place] [address] 69997- 3018 Aug, Major depressive disorder, recurrent, moderate F33.1 and Seizures R56.9 [place] [address] [place] [address] 38843- 8715 Jul, Major depressive disorder, recurrent, moderate F33.1 and Degenerative brain disorder G31.9 [place] [address] [place] [id number] [place] [address] 37723- 8542 Jul, Seizures R56.9 [place] [address] [place] [id number] [place]- 0947 Apr, [place] [address] [place] [id number] [place] [address] 76554- 4505 Apr, Major depressive disorder, recurrent, moderate F33.1 ; Anxiety F41.9 and Degenerative brain disorder G31.9 [place] [id number] [place] [address] 79282- 3479 Apr, Mood disorder F39 [place] [address] [id number] [place] [address] 64939- 3378 Apr, Arthritis M19.90 [place] [address] [id number] [place] [address]- 4184 Mar, Arthritis M19.90 ; Degenerative brain disorder G31.9 and Nonintractable generalized idiopathic epilepsy without status epilepticus G40.309 [place] [address] [place] [id number] [place] [address]- 8471 Feb, IMMUNIZATIONS No Known Immunizations SOCIAL HISTORY Never Assessed REASON FOR VISIT PLAN OF CARE VITAL SIGNS MEDICATIONS Unknown Medications RESULTS Name Result Date Reference Range MRI : Brain w/ and w/o Contrast 2018-05-04 PROCEDURES No Known procedures INSTRUCTIONS MEDICATIONS ADMINISTERED No Known Medications MEDICAL (GENERAL) HISTORY Type Description Date Medical History Toxoplasmosis Medical History migraine Medical History dementia Medical History depression Medical History alzheimers disease Medical History epilepsy Medical History COPD Surgical History cholecystectomy Surgical History appendectomy Surgical History 27 brain surgeries including shunt, [place] Surgical History neck fusion 09/26, 09/28 Surgical History right hand surgery Hospitalization History surgeries Hospitalization History seizures 12/2015
--- OUTSIDE RECORDS SUMMARY | 2018-07-01 14:04 | XMS REPORT ---
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 Name Role Phone ESTEPHANIA IVAN Unavailable PROBLEMS Type Condition ICD9-CM Code YPV18-MW Code Onset Dates Condition Status SNOMED Code Problem Unspecified mental disorder due to known physiological condition F09 Active 372434007 Problem Major depressive disorder, recurrent, moderate F33.1 Active 10436490 Problem Dementia with behavioral disturbance, unspecified dementia type F03.91 Active 0422315578623 Problem Mood disorder F39 Active 36165710 Problem Other chronic pain G89.29 Active 77272526 Problem Anxiety F41.9 Active 19163614 Problem Unsteady gait R26.81 Active 26219672 Problem History of brain shunt Z98.2 Active 325411339 Problem PTSD (post-traumatic stress disorder) F43.10 Active 10985328 Problem Sleep apnea, unspecified type G47.30 Active 33022969 Problem Degenerative brain disorder G31.9 Active 88045170 Problem Depressive disorder, not elsewhere classified F32.9 Active 56885580 Problem Other chronic pain G89.29 Active [id number] ALLERGIES No Information ENCOUNTERS Encounter Location Date Diagnosis [place] [address], [place] [address] May, [place] [address] [place] [address]- 0590 24 Apr, 2018 PTSD (post-traumatic stress disorder) F43.10 [place] [address], [place] [address] Apr, [place] [address] [id number], [place] [address] Apr, History of brain shunt Z98.2 [place] [address], [place] [address] 16[address] 10 Apr, 2018 PTSD (post-traumatic stress disorder) F43.10 [facility] [address] [place] [address] 95838 2546 07 Apr, 2018 History of brain shunt Z98.2 [facility] [address], [place] [address] 2546 04 Apr, 2018 History of brain shunt Z98.2 [facility] [address] [place] [id number] Mar, History of brain shunt Z98.2 ; Depressive disorder, not elsewhere classified F32.9 ; Degenerative brain disorder G31.9 ; Unsteady gait R26.81 ; Other chronic pain G89.29 and Daily headache R51 [place] [address] [place] [address] 07305- 7524 Mar, PTSD (post-traumatic stress disorder) F43.10 [place] [address], [place] [address] Mar, [facility] [address] [id number] [place] [address] 16151- 3236 Feb, PTSD (post-traumatic stress disorder) F43.10 [facility] [address], [place] [address] 2546 Feb, PTSD (post-traumatic stress disorder) F43.10 [place] [address] [place] [address] 50057 2541 Feb, Other chronic pain G89.29 and Pain in right knee M25.561 [place] [address] [place] [address] [id number] [place] [address] 61922- 9206 Feb, PTSD (post-traumatic stress disorder) F43.10 [facility] [address], [place] [address] 2546 Feb, [facility] [address] [place] [id number] Jan, Dementia with behavioral disturbance, unspecified dementia type F03.91 ; Other chronic pain G89.29 and Plantar fasciitis M72.[address] [facility] [address] [id number] Jan, Daily headache R51 ; History of brain shunt Z98.2 ; Plantar fasciitis of left foot M72.2 ; Pain in right knee M25.561 and Pain in left knee M25.562 [facility] [id number] [place] [address] 16603- 4296 14 Jan, 2018 [facility] [address] [place] [address] 19309- 2460 Jan, Pain in right knee M25.561 [facility] [id number] [place] [address] 99113- 7520 Jan, [facility] [id number] [place] [address] 88924- 1446 Jan, [facility] [id number] [place] [address] 35167- 9510 Jan, [facility] [address] [place] [address] 71080- 5554 December, Other chronic pain G89.[address] [facility] [address] [id number] December, Pain in left knee M25.562 ; Pain in right leg M79.604 ; Other chronic pain G89.29 ; Localized edema R60.0 and PTSD (post-traumatic stress disorder) F43.10 [facility] [address], [place] [address] December, [facility] [id number] [place] [address] 96663- 7920 December, PTSD (post-traumatic stress disorder) F43.10 [facility] [address] [address] December, [facility] [id number] [place] [address] 57787- 9064 December, [facility] [address] [place] [address] 23795- 5700 December, Depressive disorder, not elsewhere classified F32.9 and Cognitive change R41.89 [facility] [address] [place] [address] 12734- 4758 Nov, Major depressive disorder, recurrent, moderate F33.1 [facility] [id number] [place] [address] 39909- 5294 Nov, [facility] [id number] [place] [address] 17942- 0966 Nov, [facility] [id number] [place] [address] 89040- 6143 Nov, [facility] [address] [place] [address] 59531- 9202 Nov, [facility] [address] [place] [address] 94968- 4663 Nov, Mood disorder F39 [facility] [address] [place] [address] 59134- 0313 Nov, Depressive disorder, not elsewhere classified F32.9 and Cognitive change R41.89 [facility] [address] [place] [address] 62509- 3049 Nov, [facility] [address] [place] [address] 19444- 6257 Nov, [facility] [address] [place] [id number] Oct, Tear of skin of plantar aspect of right foot, initial encounter S91.311A [facility] [address] [place] [address] 37086- 2074 Oct, [facility] [address] [place] [address] 00466- 3702 Oct, [facility] [address] [id number] [id number] Oct, [facility] [id number] [address] Oct, [facility] [id number] [id number] Sep, [facility] [id number] [id number] Sep, [facility] [address] [place] [id number] [address] Sep, [facility] [id number] [id number] Sep, [facility] [address], [place] [address]- 5966 Sep, [facility] [address], [place] [address] 8166 Sep, Other chronic pain G89.29 and Pain in left knee M25.562 [facility] [address], [place] [address]- 3596 Sep, [facility] [address] [place] [address] Sep, Plantar fasciitis of left foot M72.2 and Pain in right knee M25.561 [facility] [id number] [address] Aug, [facility] [id number], [place] [address]- 3355 Aug, [facility] [id number], [place] [address]- 0755 Aug, [facility] [address] [address] 9[address] Aug, Chronic daily headache R51 [facility] [id number], [place] [address]- 4526 Aug, [facility] [address] [place] [address] Aug, Edema, unspecified type R60.9 ; Weight gain R63.5 and Sleep apnea, unspecified type G47.30 [facility] [address] [place] [address] Jul, Acute pain of left knee M25.562 and Plantar fasciitis of left foot M72.2 [facility] [address], [place] [address]- 2616 Jul, [facility] [address] [place] [id number] Jul, Plantar fasciitis of left foot M72.2 and Chronic daily headache R51 [facility] [id number] [id number] Jul, [facility] [id number] [address] Jun, [facility] [id number], [place] [address] Jun, [facility] [id number] [place] [id number] Jun, [facility] [id number] [id number] Jun, [facility] [id number] [id number] May, [facility] [id number] [place] [id number] May, [facility] [id number], [place] [address]- 4842 May, Stress incontinence of urine N39.3 [facility] [id number][place] [address] May, [facility] [id number] May, Encounter for examination for admission to [facility] Z02.2 ; Toxoplasmosis B58.9 ; Seizures R56.9 ; Major depressive disorder, recurrent, moderate F33.1 ; Degenerative brain disorder G31.9 and Unsteady gait R26.81 [facility] [id number] [place] [address] 91103- 9948 May, [facility] [id number] [place] [address] 37758- 9175 May, Mood disorder F39 [facility] [id number] [place] [address] 85834- 8188 May, [facility] [id number] [place] [address] 38962- 4146 Apr, [facility] [id number] [place] [address] 09028- 0537 Mar, [facility] [id number] [place] [address] 11358- 9026 Mar, [facility] [id number] [place] [address] 54312- 9178 Mar, [facility] [id number] [place] [address] 19170- 1076 Mar, [facility] [address] [place] [address] 63208- 6062 Mar, [facility] [address] [place] [address] 38728- 3450 Mar, Stress incontinence of urine N39.3 [facility] [id number] [place] [id number] Mar, [facility] [id number] [place] [address] 15031- 7303 Feb, [facility] [id number] [place] [address] 80747- 3318 Feb, [facility] [id number] [place] [address] 14875- 7173 Feb, [facility] [address] [facility] [id number] [place] [address]- 3318 Feb, [facility] [address] [facility] [id number] [place] [address]- 3398 Feb, [facility] [address] [facility] [id number] [place] [address]- 3700 Feb, [facility] [address] [facility] [id number] [place] [address]- 2384 Feb, [facility] [address] [facility] [id number] [place] [address]- 8065 Jan, [facility] [address] [facility] [id number] [place] [address]- 9058 Jan, [facility] [address] [id number] [place] [address]- 7326 Jan, [facility] [id number] [address]- 7267 Jan, [facility] [id number] [place] [address]- 7262 Jan, [facility] [address], [place] [address]- 8422 Jan, [facility] [id number] [address]- 1390 Jan, [facility] [id number], [place] [address]- 5096 Jan, General weakness R53.1 and Dementia with behavioral disturbance, unspecified dementia type F03.91 [facility] [address] [facility] [id number], [place] [address]- 4203 December, [facility] [address] [facility] [id number], [place] [address]- 3779 December, Other chronic pain G89.29 [facility] [id number], [place] [address]- 4030 December, [facility] [address] [place] [address] 62362- 8525 December, Unsteady gait R26.81 ; Generalized weakness R53.1 ; Unspecified mental disorder due to known physiological condition F09 and Generalized headaches R51 [facility] [id number] [place] [address] 36822- 0331 December, [facility] [id number] [place] [address] 76017- 7655 Nov, Anxiety F41.9 [facility] [address] [place] [address] 48119- 3612 Nov, Mood disorder F39 [facility] [id number] [place] [address] 97326- 8230 Oct, [facility] [address] [place] [address] 76721- 9749 Oct, Anxiety F41.9 [facility] [address] [place] [address] 61086- 1886 Oct, Other chronic pain G89.29 [facility] [address] [place] [address] 77850- 4154 Sep, Other chronic pain G89.29 ; Pain in left knee M25.562 ; Pain in right knee M25.561 and Anxiety F41.9 [facility] [address] [place] [address] 12373- 4247 Sep, MDD (major depressive disorder), recurrent episode, mild F33.0 ; Degenerative brain disorder G31.9 and 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 [facility] [address] [place] [address] 43276- 8344 Sep, [facility] [address] [place] [address] 00319- 3841 Sep, [facility] [address] [place] [address] 19088- 2063 Sep, Mood disorder F39 ; Pain of left leg M79.605 and Pain in right leg M79.604 [facility] [address] [place] [address] 71407- 1837 14 Sep, 2016 Seizures R56.9 [facility] [address] [place] [address] 02914 2546 Sep, [facility] [address] 92565- 0834 Sep, [facility] [address] 81474- 4015 Sep, [facility] [address] [place] [address] 44969- 9042 Aug, Bronchitis J40 [facility] [address] 55326- 3920 Aug, Bronchitis J40 and Encounter for drug screening Z02.83 [facility] [id number] [place] [address] 60943- 2443 Aug, [facility] [address] [place] [address] 91098- 8246 Aug, Seizures R56.9 [facility] [address] [place] [address] 28205 2541 Aug, Seizures R56.9 [facility] [id number] [place] [address] 44246 2540 Aug, Major depressive disorder, recurrent, moderate F33.1 and Seizures R56.9 [facility] [id number] [place] [address] 72029 2546 Aug, [facility] [id number] [place] [address] 93407- 2343 Aug, [facility] [address] [place] [address] 92247- 2495 Aug, Major depressive disorder, recurrent, moderate F33.1 and Seizures R56.9 [place] [address] [place] [address] 20517- 1612 Jul, Major depressive disorder, recurrent, moderate F33.1 and Degenerative brain disorder G31.9 [place] [id number] [place] [address] 64040- 4116 Jul, Seizures R56.9 [place] [address] [place] [address] 48042- 4754 Apr, [place] [address] [place] [address] 44962- 2324 Apr, Major depressive disorder, recurrent, moderate F33.1 ; Anxiety F41.9 and Degenerative brain disorder G31.9 [place] [id number] [place] [address] 66061- 4520 Apr, Mood disorder F39 [place] [address] [place] [address] 84640- 2408 Apr, Arthritis M19.90 [place] [id number] [place] [address] 38004- 9626 Mar, Arthritis M19.90 ; Degenerative brain disorder G31.9 and Nonintractable generalized idiopathic epilepsy without status epilepticus G40.309 [place] [id number] [place] [address] 98382- 9420 Feb, IMMUNIZATIONS No Known Immunizations SOCIAL HISTORY Never Assessed REASON FOR VISIT corrected order PLAN OF CARE Activity Details Pending Test BUN Pending Test CREATININE, SERUM VITAL SIGNS MEDICATIONS Unknown Medications RESULTS No Results PROCEDURES Procedure Date Ordered Result Body Site LAB NOT BILLED BY [facility] Apr 28, 2018 INSTRUCTIONS MEDICATIONS ADMINISTERED No Known Medications MEDICAL (GENERAL) HISTORY Type Description Date Medical History Toxoplasmosis Medical History migraine Medical History dementia Medical History depression Medical History alzheimers disease Medical History epilepsy Medical History COPD Surgical History cholecystectomy Surgical History appendectomy Surgical History 27 brain surgeries including shunt, [place] Surgical History neck fusion 2/5, 2/7 Surgical History right hand surgery Hospitalization History surgeries Hospitalization History seizures 12/2015
--- OUTSIDE RECORDS SUMMARY | 2018-07-01 14:04 | XMS REPORT ---
Author Author ESTEPHANIA IVAN Organization [facility] Address [address] [place] [address] Care Team Providers Care Embroidery Operator Name Role Phone ESTEPHANIA IVAN Unavailable PROBLEMS Type Condition ICD9-CM Code SFE52-OA Code Onset Dates Condition Status SNOMED Code Problem Unspecified mental disorder due to known physiological condition F09 Active 872771791 Problem Major depressive disorder, recurrent, moderate F33.1 Active 27096331 Problem Dementia with behavioral disturbance, unspecified dementia type F03.91 Active 7523537988495 Problem Mood disorder F39 Active 13918471 Problem Other chronic pain G89.29 Active 79587200 Problem Anxiety F41.9 Active 09506744 Problem Unsteady gait R26.81 Active 55924941 Problem History of brain shunt Z98.2 Active 239055584 Problem PTSD (post-traumatic stress disorder) F43.10 Active 54706309 Problem Sleep apnea, unspecified type G47.30 Active 32800294 Problem Degenerative brain disorder G31.9 Active 57357638 Problem Depressive disorder, not elsewhere classified F32.9 Active 78874034 Problem Other chronic pain G89.29 Active 99781535 ALLERGIES No Information ENCOUNTERS Encounter Location Date Diagnosis [place] [id number] [address] May, [place] [id number] [place] [address] 89607- 4831 24 Apr, 2018 PTSD (post-traumatic stress disorder) F43.10 [place] [address] [address] Apr, [place] [address] [place] [id number] [address] 9[address] Apr, History of brain shunt Z98.2 [place] [address] [address] 10 Apr, 2018 PTSD (post-traumatic stress disorder) F43.10 [facility] [address] [place] [address] 08673 2546 07 Apr, 2018 History of brain shunt Z98.2 [facility] [address] [address] 2546 04 Apr, 2018 History of brain shunt Z98.2 [facility] [address] [place] [id number] Mar, History of brain shunt Z98.2 ; Depressive disorder, not elsewhere classified F32.9 ; Degenerative brain disorder G31.9 ; Unsteady gait R26.81 ; Other chronic pain G89.29 and Daily headache R51 [place] [address] [place] [address] 51222- 4582 Mar, PTSD (post-traumatic stress disorder) F43.10 [place] [address] [address] 9[address] Mar, [facility] [address] [place] [id number] [place] [address] 62730- 6696 Feb, PTSD (post-traumatic stress disorder) F43.10 [facility] [id number] [address] 2546 Feb, PTSD (post-traumatic stress disorder) F43.10 [place] [address] [place] [address] 08576 2541 Feb, Other chronic pain G89.29 and Pain in right knee M25.561 [place] [address] [place] [id number] [place] [address] 05300- 5036 Feb, PTSD (post-traumatic stress disorder) F43.10 [facility] [address] [address] 2546 Feb, [facility] [address] [place] [id number] Jan, Dementia with behavioral disturbance, unspecified dementia type F03.91 ; Other chronic pain G89.29 and Plantar fasciitis M72.[address] [facility] [address] [id number] Jan, Daily headache R51 ; History of brain shunt Z98.2 ; Plantar fasciitis of left foot M72.2 ; Pain in right knee M25.561 and Pain in left knee M25.562 [facility] [address] [place] [id number] [place] [address] 27770- 3783 14 Jan, 2018 [facility] [address] [place] [id number] [place] [address] 75507- 0915 Jan, Pain in right knee M25.561 [facility] [address] [place] [id number] [place] [address] 07546- 1605 Jan, [facility] [address] [place] [id number] [place] [address] 26857- 3841 Jan, [facility] [address] [place] [id number] [place] [address] 00320- 8359 Jan, [facility] [address] [place] [id number] [place] [address] 19491- 9623 December, Other chronic pain G89.[address] [facility] [address] [id number] December, Pain in left knee M25.562 ; Pain in right leg M79.604 ; Other chronic pain G89.29 ; Localized edema R60.0 and PTSD (post-traumatic stress disorder) F43.10 [facility] [address] [address] 0[address] December, [facility] [address] [place] [id number] [place] [address] 71299- 2324 December, PTSD (post-traumatic stress disorder) F43.10 [facility] [address] [place] [id number] [address] 5927 December, [facility] [address] [place] [id number] [place] [address] 60921- 4943 December, [facility] [address] [place] [id number] [place] [address] 67384- 5589 December, Depressive disorder, not elsewhere classified F32.9 and Cognitive change R41.89 [facility] [address] [place] [address] 75541- 5795 Nov, Major depressive disorder, recurrent, moderate F33.1 [facility] [address] [place] [id number] [place] [address] 96561- 8474 Nov, [facility] [address] [place] [id number] [place] [address] 53502- 0031 Nov, [facility] [address] [place] [id number] [place] [address] 67273- 8167 Nov, [facility] [address] [place] [id number] [place] [address] 76524- 4788 Nov, [facility] [address] [place] [id number] [place] [address] 31574- 7539 Nov, Mood disorder F39 [facility] [address] [place] [id number] [place] [address] 24926- 6096 Nov, Depressive disorder, not elsewhere classified F32.9 and Cognitive change R41.89 [facility] [address] [place] [address] 64455- 0311 Nov, [facility] [address] [place] [id number] [place] [address] 09078- 8745 Nov, [facility] [address] [place] [id number] Oct, Tear of skin of plantar aspect of right foot, initial encounter S91.311A [facility] [address] [place] [id number] [place] [address] 74055- 6676 Oct, [facility] [address] [place] [address] 15335- 9797 Oct, [facility] [address] [id number] [id number] Oct, [facility] [id number] [place] [id number] Oct, [facility] [id number] [place] [id number] Sep, [facility] [id number] [place] [id number] Sep, [facility] [address] [place] [id number] [address] Sep, [facility] [id number] [place] [address] Sep, [facility] [address] [address]- 7786 Sep, [facility] [address] [address]- 1586 Sep, Other chronic pain G89.29 and Pain in left knee M25.562 [facility] [address] [address] 4296 Sep, [facility] [address] [place] [id number] Sep, Plantar fasciitis of left foot M72.2 and Pain in right knee M25.561 [facility] [id number] [place] [address] Aug, [facility] [address] [place] [id number] [address]- 6874 Aug, [facility] [address] [place] [id number] [address]- 4286 Aug, [facility] [address] [address] Aug, Chronic daily headache R51 [facility] [address] [place] [id number] [address]- 6811 Aug, [facility] [address] [place] [id number] Aug, Edema, unspecified type R60.9 ; Weight gain R63.5 and Sleep apnea, unspecified type G47.30 [facility] [address] [place] [address] Jul, Acute pain of left knee M25.562 and Plantar fasciitis of left foot M72.2 [facility] [address] [address]- 8646 Jul, [facility] [address] [place] [id number] Jul, Plantar fasciitis of left foot M72.2 and Chronic daily headache R51 [facility] [id number] [place] [id number] Jul, [facility] [address] [place] [id number] [address] Jun, [facility] [address] [place] [id number] [address]- 9767 Jun, [facility] [id number] [place] [address] [id number] Jun, [facility] [address] [place] [id number] [id number] Jun, [facility] [address] [place] [id number] [id number] May, [facility] [address] [place] [id number] [place] [address] [id number] May, [facility] [address] [place] [id number] [address]- 6375 May, Stress incontinence of urine N39.3 [facility] [id number] [place] [id number] May, [facility] [id number] May, Encounter for examination for admission to senior living Z02.2 ; Toxoplasmosis B58.9 ; Seizures R56.9 ; Major depressive disorder, recurrent, moderate F33.1 ; Degenerative brain disorder G31.9 and Unsteady gait R26.81 [facility] [address] [place] [id number] [place] [address] 67339- 8337 May, [facility] [address] [place] [id number] [place] [address] 14578- 3280 May, Mood disorder F39 [facility] [address] [place] [id number] [place] [address] 50302- 2713 May, [facility] [address] [place] [id number] [place] [address] 17562- 0879 Apr, [facility] [address] [place] [id number] [place] [address] 10150- 2606 Mar, [facility] [address] [place] [id number] [place] [address] 79465- 6188 Mar, [facility] [address] [place] [id number] [place] [address] 05328- 9198 Mar, [facility] [address] [place] [id number] [place] [address] 49450- 1022 Mar, [facility] [address] [place] [id number] [place] [address] 21428- 5279 Mar, [facility] [address] [place] [id number] [place] [address] 40937- 1529 Mar, Stress incontinence of urine N39.3 [facility] [address] [place] [id number] [place] [address] [id number] Mar, [facility] [address] [place] [id number] [place] [address] 63149- 6787 Feb, [facility] [address] [place] [id number] [place] [address] 10250- 4849 Feb, [facility] [address] [place] [id number] [place] [address] 75921- 9035 Feb, [facility] [address] [facility] [id number] [place] [address]- 6141 Feb, [facility] [address] [facility] [id number] [place] [address]- 9459 Feb, [facility] [address] [facility] [id number] [place] [address]- 4695 Feb, [facility] [address] [facility] [id number] [place] [address]- 9933 Feb, [facility] [address] [facility] [id number] [place] [address]- 8887 Jan, [facility] [address] [facility] [id number] [place] [address]- 1933 Jan, [facility] [address] [place] [id number] [place] [address]- 1138 Jan, [facility] [address] [place] [id number] [place] [address]- 5510 Jan, [facility] [address] [place] [id number] [place] [address]- 3944 Jan, [facility] [address] [address]- 3010 Jan, [facility] [address] [place] [address]- 1399 Jan, [facility] [address] [place] [id number] [address]- 4431 Jan, General weakness R53.1 and Dementia with behavioral disturbance, unspecified dementia type F03.91 [facility] [address] [facility] [id number] [place] [address]- 2280 December, [facility] [address] [facility] [id number] [place] [address]- 2628 December, Other chronic pain G89.29 [facility] [address] [place] [id number] [address]- 0003 December, [facility] [address] [place] [address] 58358- 2558 December, Unsteady gait R26.81 ; Generalized weakness R53.1 ; Unspecified mental disorder due to known physiological condition F09 and Generalized headaches R51 [facility] [address] [place] [id number] [place] [address] 62924- 7315 December, [facility] [address] [place] [id number] [place] [address] 82267- 0645 Nov, Anxiety F41.9 [facility] [address] [place] [id number] [place] [address] 40921- 1114 Nov, Mood disorder F39 [facility] [address] [place] [id number] [place] [address] 04032- 0374 Oct, [facility] [address] [place] [id number] [place] [address] 91174- 2094 Oct, Anxiety F41.9 [facility] [address] [place] [id number] [place] [address] 81256- 1947 Oct, Other chronic pain G89.29 [facility] [address] [place] [id number] [place] [address] 42277- 5090 Sep, Other chronic pain G89.29 ; Pain in left knee M25.562 ; Pain in right knee M25.561 and Anxiety F41.9 [facility] [address] [place] [id number] [place] [address] 05935- 2750 Sep, MDD (major depressive disorder), recurrent episode, mild F33.0 ; Degenerative brain disorder G31.9 and 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 [facility] [address] [place] [id number] [place] [address] 66660- 3367 Sep, [facility] [address] [place] [id number] [place] [address] 81514- 1668 Sep, [facility] [address] [place] [id number] [place] [address] 79310- 8834 Sep, Mood disorder F39 ; Pain of left leg M79.605 and Pain in right leg M79.604 [facility] [address] [place] [id number] [place] [address] 87529- 1710 14 Sep, 2016 Seizures R56.9 [facility] [address] [place] [id number] [place] [address] 69888 2546 Sep, [facility] [address] 56474- 4934 Sep, [facility] [address] 30952- 7680 Sep, [facility] [address] [place] [id number] [place] [address] 25533- 3093 Aug, Bronchitis J40 [facility] [address] 24088- 4022 Aug, Bronchitis J40 and Encounter for drug screening Z02.83 [facility] [address] [place] [id number] [place] [address] 26164- 1082 Aug, [facility] [address] [place] [id number] [place] [address] 03257- 9796 Aug, Seizures R56.9 [facility] [address] [place] [id number] [place] [address] 01474 2541 Aug, Seizures R56.9 [facility] [address] [place] [id number] [place] [address] 58153 2549 Aug, Major depressive disorder, recurrent, moderate F33.1 and Seizures R56.9 [facility] [address] [place] [id number] [place] [address] 52395 2546 Aug, [facility] [address] [place] [id number] [place] [address] 96326- 8419 Aug, [facility] [address] [place] [id number] [place] [address] 56812- 3656 Aug, Major depressive disorder, recurrent, moderate F33.1 and Seizures R56.9 [place] [address] [place] [id number] [place] [address] 85722- 1321 Jul, Major depressive disorder, recurrent, moderate F33.1 and Degenerative brain disorder G31.9 [place] [address] [place] [id number] [place] [address] 67342- 3133 Jul, Seizures R56.9 [place] [address] 51648- 9943 Apr, [place] [address] [place] [id number] [place] [address] 51827- 7782 Apr, Major depressive disorder, recurrent, moderate F33.1 ; Anxiety F41.9 and Degenerative brain disorder G31.9 [place] [address] [place] [id number] [place] [address] 37269- 9835 Apr, Mood disorder F39 [place] [address] [place] [id number] [place] [address] 11603- 3256 Apr, Arthritis M19.90 [place] [id number] [place] [address] 65944- 5224 Mar, Arthritis M19.90 ; Degenerative brain disorder G31.9 and Nonintractable generalized idiopathic epilepsy without status epilepticus G40.309 [place] [address] [place] [id number] [place] [address] 30527- 9934 Feb, IMMUNIZATIONS No Known Immunizations SOCIAL HISTORY Never Assessed REASON FOR VISIT Med list review PLAN OF CARE VITAL SIGNS MEDICATIONS Medication Instructions Dosage Frequency Start Date End Date Duration Status Naproxen 500 MG Orally every 12 hrs 1 tablet as needed 12h 30 Active Omeprazole 20 mg Orally Once a day 1 capsules 24h Active Furosemide 40 mg Orally Once a day in AM 1 tablet Sep, 30 day (s) Active Ditropan XL 5 mg Orally Once a day 1 tablet 24h 18 Mar, 2017 30 day(s) Active Potassium Chloride Noni ER 20 meq Orally Once a day 1 tablet with food 24h December, Apr, 30 day(s) Active Levetiracetam 500 mg Orally Twice a day 3 tablets 12h Active ProAir HFA 108 (90 Base) MCG/ACT Inhalation every 4 hrs 2 puffs as needed for cough or short of breath 4h 30 Active Clonazepam 1 MG Orally Twice a day 1/2 tab in the AM and 1 tab in the PM 12h 28 Sep, 2016 Active Amitriptyline HCl 50 MG Orally Once a day at bedtime 1 tablet Active Ondansetron 4 MG Orally every 8 hrs PRN 1 tablet on the tongue and allow to dissolve Aug, Active Percocet 7.5-325 MG Orally every 6 hrs 1 tablet as needed 6h Mar, 28 days Active Zyrtec Allergy 10 mg Orally Once a day 1 tablet as needed 24h May, 30 day(s) Active Biofreeze 4 % Externally Once a day at bedtime 1 applicationt both ankles Active Milk of Magnesia 1200 MG/15ML Orally Once a day 30ml as needed 24h Active Memantine HCl 5 mg Orally Once a day 1 tablet 24h Active Depakote 500 mg Orally 2 times a day 3 tablets 12h Active Advair Diskus 500-50 MCG/DOSE Inhalation Twice a day 1 puff 12h Active Clonidine HCl 0.1 MG Orally Twice a day 1 tablet 12h Active Colace 100 mg Orally twice a day 1 capsule 12h Active Gabapentin 300 MG Orally Three times [...] Surgical History 27 brain surgeries including shunt, [place] Surgical History neck fusion 09/26, 09/28 Surgical History right hand surgery Hospitalization History surgeries Hospitalization History seizures 12/2015
--- OUTSIDE RECORDS SUMMARY | 2018-07-01 14:05 | XMS REPORT ---
Author Author ESTEPHANIA IVAN Organization [facility] Address [address] [place] [address] Care Team Providers Care Hospital Attendant Name Role Phone ESTEPHANIA IVAN Unavailable PROBLEMS Type Condition ICD9-CM Code SLC24-GK Code Onset Dates Condition Status SNOMED Code Problem Unspecified mental disorder due to known physiological condition F09 Active 093473971 Problem Major depressive disorder, recurrent, moderate F33.1 Active 60402127 Problem Dementia with behavioral disturbance, unspecified dementia type F03.91 Active 7212458594709 Problem Mood disorder F39 Active 74895888 Problem Other chronic pain G89.29 Active 14772566 Problem Anxiety F41.9 Active 42985846 Problem Unsteady gait R26.81 Active 71246938 Problem History of brain shunt Z98.2 Active 855123555 Problem PTSD (post-traumatic stress disorder) F43.10 Active 28078400 Problem Sleep apnea, unspecified type G47.30 Active 16513881 Problem Degenerative brain disorder G31.9 Active 99083641 Problem Depressive disorder, not elsewhere classified F32.9 Active 85117919 Problem Other chronic pain G89.29 Active 68662022 ALLERGIES No Information ENCOUNTERS Encounter Location Date Diagnosis [place] [address], [place] [address] May, [place] [id number] [place] [address] 17815- 4722 24 Apr, 2018 PTSD (post-traumatic stress disorder) F43.10 [place] [address], [place] [address] Apr, [place] [id number], [place] [address] Apr, History of brain shunt Z98.2 [place] [id number] [address] 34[address] 10 Apr, 2018 PTSD (post-traumatic stress disorder) F43.10 [facility] [address] [place] [address] 16362 2546 07 Apr, 2018 History of brain shunt Z98.2 [facility] [address], [place] [address] 2546 04 Apr, 2018 History of brain shunt Z98.2 [facility] [address] [place] [id number] Mar, History of brain shunt Z98.2 ; Depressive disorder, not elsewhere classified F32.9 ; Degenerative brain disorder G31.9 ; Unsteady gait R26.81 ; Other chronic pain G89.29 and Daily headache R51 [place] [address] [place] [address] 81700- 8037 Mar, PTSD (post-traumatic stress disorder) F43.10 [place] [address], [place] [address] Mar, [facility] [id number] [place] [address] 32646- 2976 Feb, PTSD (post-traumatic stress disorder) F43.10 [facility] [address], [place] [address] 2546 Feb, PTSD (post-traumatic stress disorder) F43.10 [place] [address] [place] [address] 22039 2547 Feb, Other chronic pain G89.29 and Pain in right knee M25.561 [place] [id number] [place] [address] 71807- 3096 Feb, PTSD (post-traumatic stress disorder) F43.10 [facility] [address], [place] [address] 2546 Feb, [facility] [address] [place] [id number] Jan, Dementia with behavioral disturbance, unspecified dementia type F03.91 ; Other chronic pain G89.29 and Plantar fasciitis M72.[address] [facility] [address] [id number] Jan, Daily headache R51 ; History of brain shunt Z98.2 ; Plantar fasciitis of left foot M72.2 ; Pain in right knee M25.561 and Pain in left knee M25.562 [facility] [id number] [place] [address] 45754- 6870 14 Jan, 2018 [facility] [id number] [place] [address] 93888- 2447 Jan, Pain in right knee M25.561 [facility] [id number] [place] [address] 07346- 6073 Jan, [facility] [id number] [place] [address] 51468- 8014 Jan, [facility] [id number] [place] [address] 59798- 7372 Jan, [facility] [id number] [place] [address] 78901- 9694 December, Other chronic pain G89.[address] [facility] [address] [id number] December, Pain in left knee M25.562 ; Pain in right leg M79.604 ; Other chronic pain G89.29 ; Localized edema R60.0 and PTSD (post-traumatic stress disorder) F43.10 [facility] [address], [place] [address] 70[address] December, [facility] [id number] [place] [address] 17573- 7996 December, PTSD (post-traumatic stress disorder) F43.10 [facility] [address] [address] 70[address] December, [facility] [id number] [place] [address] 27761- 6427 December, [facility] [id number] [place] [address] 02032- 6739 December, Depressive disorder, not elsewhere classified F32.9 and Cognitive change R41.89 [facility] [address] [place] [address] 96628- 3038 Nov, Major depressive disorder, recurrent, moderate F33.1 [facility] [id number] [place] [address] 61464- 4396 Nov, [facility] [id number] [place] [address] 55045- 1707 Nov, [facility] [id number] [place] [address] 53394- 5449 Nov, [facility] [id number] [place] [address] 03713- 3189 Nov, [facility] [id number] [place] [address] 63949- 4309 Nov, Mood disorder F39 [facility] [id number] [place] [address] 49636- 5590 Nov, Depressive disorder, not elsewhere classified F32.9 and Cognitive change R41.89 [facility] [address] [place] [address] 17730- 5795 Nov, [facility] [id number] [place] [address] 08936- 1151 Nov, [facility] [address] [place] [id number] Oct, Tear of skin of plantar aspect of right foot, initial encounter S91.311A [facility] [id number] [place] [address] 73006- 3017 Oct, [facility] [address] [place] [address] 61201- 9089 Oct, [facility] [address] [place] [address] [id number] [id number] Oct, [facility] [id number] [address] Oct, [facility] [id number] [id number] Sep, [facility] [id number] [id number] Sep, [facility] [address] [place] [id number] [address] Sep, [facility] [id number] [address] Sep, [facility] [address], [place] [address]- 7996 Sep, [facility] [address], [place] [address] 7436 Sep, Other chronic pain G89.29 and Pain in left knee M25.562 [facility] [address], [place] [address] 2796 Sep, [facility] [address] [place] [id number] Sep, Plantar fasciitis of left foot M72.2 and Pain in right knee M25.561 [facility] [id number] [address] Aug, [facility] [id number], [place] [address]- 2976 Aug, [facility] [id number], [place] [address]- 0188 Aug, [facility] [address] [address] 3068 Aug, Chronic daily headache R51 [facility] [id number], [place] [address] 2637 Aug, [facility] [address] [place] [id number] Aug, Edema, unspecified type R60.9 ; Weight gain R63.5 and Sleep apnea, unspecified type G47.30 [facility] [address] [place] [id number] Jul, Acute pain of left knee M25.562 and Plantar fasciitis of left foot M72.2 [facility] [address], [place] [address] 1396 Jul, [facility] [address] [place] [id number] Jul, Plantar fasciitis of left foot M72.2 and Chronic daily headache R51 [facility] [id number] [id number] Jul, [facility] [id number] [id number] Jun, [facility] [place] [id number], [place] [address]- 0304 Jun, [facility] [id number] [place] [address] [id number] Jun, [facility] [id number] [id number] Jun, [facility] [id number] [id number] May, [facility] [id number] [place] [address] [id number] May, [facility] [place] [id number], [place] [address]- 4724 May, Stress incontinence of urine N39.3 [facility] [id number] [address] May, [facility] [id number] May, Encounter for examination for admission to [facility] Z02.2 ; Toxoplasmosis B58.9 ; Seizures R56.9 ; Major depressive disorder, recurrent, moderate F33.1 ; Degenerative brain disorder G31.9 and Unsteady gait R26.81 [facility] [id number] [place] [address] 96147- 1006 May, [facility] [id number] [place] [address] 13854- 2824 May, Mood disorder F39 [facility] [id number] [place] [address] 60653- 4141 May, [facility] [id number] [place] [address] 66720- 0680 Apr, [facility] [id number] [place] [address] 61206- 5167 Mar, [facility] [id number] [place] [address] 60015- 6194 Mar, [facility] [id number] [place] [address] 01440- 0034 Mar, [facility] [id number] [place] [address] 58869- 0906 Mar, [facility] [id number] [place] [address] 50973- 8406 Mar, [facility] [id number] [place] [address] 12293- 4720 Mar, Stress incontinence of urine N39.3 [facility] [id number] [place] [address] [id number] Mar, [facility] [id number] [place] [address] 05151- 9792 Feb, [facility] [id number] [place] [address] 93154- 9273 Feb, [facility] [id number] [place] [address] 58192- 5207 Feb, [facility] [address] [facility] [id number] [place] [address]- 6518 Feb, [facility] [address] [facility] [id number] [place] [address]- 3260 Feb, [facility] [address] [facility] [facility] [id number] [place] [address]- 6056 Feb, [facility] [address] [facility] [facility] [id number] [place] [address]- 1332 Feb, [facility] [address] [facility] [id number] [place] [address]- 4767 Jan, [facility] [address] [id number] [place] [address]- 9920 Jan, [facility] [address] [id number] [address]- 4484 Jan, [facility] [id number] [place] [address]- 0587 Jan, [facility] [id number] [address]- 9144 Jan, [facility] [address], [place] [address]- 8434 Jan, [facility] [address] [address]- 0247 Jan, [facility] [id number], [place] [address]- 8351 Jan, General weakness R53.1 and Dementia with behavioral disturbance, unspecified dementia type F03.91 [facility] [address] [facility] [id number], [place] [address]- 3844 December, [facility] [address] [facility] [id number], [place] [address]- 4443 December, Other chronic pain G89.29 [facility] [address] [id number], [place] [address]- 8753 December, [facility] [address] [place] [address] 74310- 5224 December, Unsteady gait R26.81 ; Generalized weakness R53.1 ; Unspecified mental disorder due to known physiological condition F09 and Generalized headaches R51 [facility] [id number] [place] [address] 09013- 7226 December, [facility] [id number] [place] [address] 72453- 6422 Nov, Anxiety F41.9 [facility] [address] [id number] [place] [address] 79959- 1760 Nov, Mood disorder F39 [facility] [address] [place] [id number] [place] [address] 36366- 9936 Oct, [facility] [address] [id number] [place] [address] 46639- 2642 Oct, Anxiety F41.9 [facility] [id number] [place] [address] 63415- 4272 Oct, Other chronic pain G89.29 [facility] [address] [place] [id number] [place] [address] 63194- 9306 Sep, Other chronic pain G89.29 ; Pain in left knee M25.562 ; Pain in right knee M25.561 and Anxiety F41.9 [facility] [id number] [place] [address] 12503- 7886 Sep, MDD (major depressive disorder), recurrent episode, mild F33.0 ; Degenerative brain disorder G31.9 and 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 [facility] [id number] [place] [address] 06612- 4432 Sep, [facility] [id number] [place] [address] 14563- 4786 Sep, [facility] [id number] [place] [address] 27864- 4020 Sep, Mood disorder F39 ; Pain of left leg M79.605 and Pain in right leg M79.604 [facility] [id number] [place] [address] 66033- 1412 14 Sep, 2016 Seizures R56.9 [facility] [id number] [place] [address] 47335 2546 Sep, [facility] [address] 42964- 2707 Sep, [facility] [address] 78365- 7051 Sep, [facility] [id number] [place] [address] 66595- 6521 Aug, Bronchitis J40 [facility] [address] 92281- 8006 Aug, Bronchitis J40 and Encounter for drug screening Z02.83 [facility] [id number] [place] [address] 62881- 3854 Aug, [facility] [id number] [place] [address] 52090- 5499 Aug, Seizures R56.9 [facility] [id number] [place] [address] 96556 2544 Aug, Seizures R56.9 [facility] [id number] [place] [address] 02489 2543 Aug, Major depressive disorder, recurrent, moderate F33.1 and Seizures R56.9 [facility] [id number] [place] [address] 65546 2546 Aug, [facility] [id number] [place] [address] 16770- 0990 Aug, [facility] [id number] [place] [address] 98536- 8525 Aug, Major depressive disorder, recurrent, moderate F33.1 and Seizures R56.9 [place] [id number] [place] [address] 58759- 3095 Jul, Major depressive disorder, recurrent, moderate F33.1 and Degenerative brain disorder G31.9 [place] [id number] [place] [address] 70919- 3129 Jul, Seizures R56.9 [place] [id number] [place] [address]- 9846 Apr, [place] [id number] [place] [address] 34647- 6132 Apr, Major depressive disorder, recurrent, moderate F33.1 ; Anxiety F41.9 and Degenerative brain disorder G31.9 [place] [id number] [place] [address] 46759- 7110 Apr, Mood disorder F39 [place] [id number] [place] [address] 71066- 9098 Apr, Arthritis M19.90 [place] [id number] [place] [address] 1448 Mar, Arthritis M19.90 ; Degenerative brain disorder G31.9 and Nonintractable generalized idiopathic epilepsy without status epilepticus G40.309 [place] [id number] [place] [address] 94004- 0605 Feb, IMMUNIZATIONS No Known Immunizations SOCIAL HISTORY Never Assessed REASON FOR VISIT MRI order PLAN OF CARE VITAL SIGNS MEDICATIONS Unknown Medications RESULTS No Results PROCEDURES No Known procedures INSTRUCTIONS MEDICATIONS ADMINISTERED No Known Medications MEDICAL (GENERAL) HISTORY Type Description Date Medical History Toxoplasmosis Medical History migraine Medical History dementia Medical History depression Medical History alzheimers disease Medical History epilepsy Medical History COPD Surgical History cholecystectomy Surgical History appendectomy Surgical History 27 brain surgeries including shunt, [place] Surgical History neck fusion 09/26, 09/28 Surgical History right hand surgery Hospitalization History surgeries Hospitalization History seizures 12/2015
--- OUTSIDE RECORDS SUMMARY | 2018-07-01 14:06 | XMS REPORT ---
Author Author ESTEPHANIA IVAN Organization [facility] [place] Address [address] [place] [address] Care Team Providers Care Longwall Foreman Name Role Phone ESTEPHANIA IVAN Unavailable PROBLEMS Type Condition ICD9-CM Code OTT57-KL Code Onset Dates Condition Status SNOMED Code Problem Unspecified mental disorder due to known physiological condition F09 Active 458469760 Problem Major depressive disorder, recurrent, moderate F33.1 Active 42103192 Problem Dementia with behavioral disturbance, unspecified dementia type F03.91 Active [id number] Problem Mood disorder F39 Active 99557312 Problem Other chronic pain G89.29 Active 96355299 Problem Anxiety F41.9 Active 07714631 Problem Unsteady gait R26.81 Active 25247105 Problem History of brain shunt Z98.2 Active 827228949 Problem PTSD (post-traumatic stress disorder) F43.10 Active 51291040 Problem Sleep apnea, unspecified type G47.30 Active 12000612 Problem Degenerative brain disorder G31.9 Active 21721407 Problem Depressive disorder, not elsewhere classified F32.9 Active 43501625 Problem Other chronic pain G89.29 Active 65155245 ALLERGIES No Information ENCOUNTERS Encounter Location Date Diagnosis [facility] [place] [id number] [address] May, [facility] [place] [address], [place] [address] Apr, [facility] [place] [address] [address] Apr, History of brain shunt Z98.2 [facility] [place] [id number], [place] [address] Apr, PTSD (post-traumatic stress disorder) F43.10 [facility] [place] [address] [place] [address] 42296- 3426 07 Apr, 2018 History of brain shunt Z98.2 [facility] [place] [address] [place] [address] 42084- 5637 04 Apr, 2018 History of brain shunt Z98.[address] [facility] [address] [id number] Mar, History of brain shunt Z98.2 ; Depressive disorder, not elsewhere classified F32.9 ; Degenerative brain disorder G31.9 ; Unsteady gait R26.81 ; Other chronic pain G89.29 and Daily headache R51 [facility] [id number] [place] [address] 11332- 8537 Mar, PTSD (post-traumatic stress disorder) F43.10 [facility] [id number] [place] [address] 65657- 8224 Mar, [facility] [id number] [place] [address] 71176- 5946 Feb, PTSD (post-traumatic stress disorder) F43.10 [facility] [id number] [place] [address] 21103- 1074 Feb, PTSD (post-traumatic stress disorder) F43.10 [facility] [address] [place] [address] 65347- 5051 Feb, Other chronic pain G89.29 and Pain in right knee M25.561 [facility] [id number] [place] [address] 29825- 7906 Feb, PTSD (post-traumatic stress disorder) F43.10 [facility] [id number] [place] [address] 39120- 1735 Feb, [facility] [address] [id number] Jan, Dementia with behavioral disturbance, unspecified dementia type F03.91 ; Other chronic pain G89.29 and Plantar fasciitis M72.[address] [facility] [address] [id number] Jan, Daily headache R51 ; History of brain shunt Z98.2 ; Plantar fasciitis of left foot M72.2 ; Pain in right knee M25.561 and Pain in left knee M25.562 [facility] [place] [address], [place] [address] Jan, [facility] [place] [id number] [place] [address] 18022- 4916 Jan, Pain in right knee M25.561 [facility] [place] [id number] [place] [address] 33009- 9292 Jan, [facility] [place] [id number] [place] [address] 42221- 1815 Jan, [facility] [place] [id number] [place] [address] 30267- 5154 Jan, [facility] [place] [id number] [place] [address] 00474- 8767 December, [facility]89.29 [facility] [address] [place] [id number] December, Pain in left knee M25.562 ; Pain in right leg M79.604 ; Other chronic pain G89.29 ; Localized edema R60.0 and PTSD (post-traumatic stress disorder) F43.10 [facility] [place] [address] [address] 8[address] December, [facility] [place] [address], [place] [address] 4954 December, PTSD (post-traumatic stress disorder) F43.10 [facility] [place] [address], [place] [address] 5878 December, [facility] [place] [address], [place] [address]- 2489 December, [facility] [place] [id number] [place] [address] 35440- 0316 December, Depressive disorder, not elsewhere classified F32.9 and Cognitive change R41.89 [facility] [place] [address] [place] [address] 86295- 5550 Nov, Major depressive disorder, recurrent, moderate F33.1 [facility] [place] [address] [place] [address] 44427- 5895 Nov, [facility] [place] [id number] [place] [address] 07773- 2215 Nov, [facility] [place] [address] [place] [address] 39839- 5363 Nov, [facility] [place] [id number] [place] [address] 07355- 3718 Nov, [facility] [place] [id number] [place] [address] 70692- 0643 Nov, Mood disorder F39 [facility] [place] [id number] [place] [address] 31244- 2550 Nov, Depressive disorder, not elsewhere classified F32.9 and Cognitive change R41.89 [facility] [place] [id number] [place] [address] 45923- 5800 Nov, [facility] [place] [address] [place] [address] 14492- 5662 Nov, [facility] [address] [place] [id number] Oct, Tear of skin of plantar aspect of right foot, initial encounter S91.311A [facility] [place] [address], [place] [address] 2910 Oct, [facility] [place] [address] [place] [address] 61488- 0611 14 Oct, 2017 [facility] [id number] [place] [address] [id number] Oct, [facility] [id number] [place] [address] [id number] Oct, [facility] [address] [id number] [id number] Sep, [facility] [id number] [id number] Sep, [facility] [id number] [id number] Sep, [facility] [address] [id number] [id number] Sep, [facility] [place] [id number], [place] [address]- 9186 Sep, [facility] [place] [address] [place] [address] 60958- 5866 Sep, Other chronic pain G89.29 and Pain in left knee M25.562 [facility] [place] [address] [place] [address] 77578- 0446 Sep, [facility] [address] [place] [id number] Sep, Plantar fasciitis of left foot M72.2 and Pain in right knee M25.561 [facility] [id number] [id number] Aug, [facility] [place] [id number], [place] [address]- 0536 Aug, [facility] [place] [id number], [place] [address]- 3996 Aug, [facility] [place] [id number], [place] [address]- 5443 Aug, Chronic daily headache R51 [facility] [place] [id number], [place] [address]- 0856 Aug, [facility] [address] [place] [id number] Aug, Edema, unspecified type R60.9 ; Weight gain R63.5 and Sleep apnea, unspecified type G47.30 [facility] [address] [place] [id number] Jul, Acute pain of left knee M25.562 and Plantar fasciitis of left foot M72.2 [facility] [place] [address] [facility] [id number], [place] [address] 2546 Jul, [facility] [address] [place] [id number] Jul, Plantar fasciitis of left foot M72.2 and Chronic daily headache R51 [facility] [address] [id number] [id number] Jul, [facility] [address] [id number] [id number] Jun, [facility] [place] [address] [facility] [id number][place] [address]- 6816 Jun, [facility] [address] [id number] [id number] Jun, [facility] [address] [id number] [id number] Jun, [facility] [id number] [place] [address] [id number] May, [facility] [address] [id number] [id number] May, [facility] [place] [address] [facility] [id number], [place] [address]- 2546 May, Stress incontinence of urine N39.3 [facility] [address] [id number][place] [id number] May, [facility] [id number] May, Encounter for examination for admission to [facility] Z02.2 ; Toxoplasmosis B58.9 ; Seizures R56.9 ; Major depressive disorder, recurrent, moderate F33.1 ; Degenerative brain disorder G31.9 and Unsteady gait R26.81 [facility] [place] [address] [id number] [place] [address]- 3395 May, [facility] [address] [id number] [place] [address]- 1311 May, Mood disorder F39 [facility] [address] [id number] [place] [address] May, [facility] [place] [facility] [id number] [place] [address], [place] [address]- 4871 Apr, [facility] [address] [id number] [place] [address]- 4748 Mar, [facility] [place] [facility] [address] [id number] [place] [address]- 5248 Mar, [facility] [address] [facility] [id number] [place] [address]- 2916 Mar, [facility] [address] [facility] [id number] [place] [address] 42922- 0117 Mar, [facility] [address] [id number] [place] [address]- 5894 Mar, [facility] [id number], [place] [address]- 7598 Mar, Stress incontinence of urine N39.3 [facility] [address] [id number] [id number] Mar, [facility] [place] [facility] [address] [facility] [id number], [place] [address]- 4910 Feb, [facility] [place] [facility] [address] [id number] [place] [address]- 9354 Feb, [facility] [place] [facility] [address] [facility] [id number], [place] [address]- 9886 Feb, [facility] [place] [facility] [address] [facility] [id number], [place] [address]- 0494 Feb, [facility] [place] [facility] [id number], [place] [address]- 9259 Feb, [facility] [place] [address] [facility] [id number], [place] [address]- 2090 Feb, [facility] [place] [address] [facility] [id number], [place] [address]- 5586 Feb, [facility] [place] [address], [place] [address]- 3423 Jan, [facility] [place] [address] [facility] [id number], [place] [address]- 9742 Jan, [facility] [place] [address], [place] [address]- 8194 Jan, [facility] [place] [id number], [place] [address]- 9858 Jan, [facility] [place] [address], [place] [address]- 1310 Jan, [facility] [place] [address], [place] [address]- 0049 Jan, [facility] [place] [address], [place] [address]- 8721 Jan, [facility] [place] [id number], [place] [address]- 3571 Jan, General weakness R53.1 and Dementia with behavioral disturbance, unspecified dementia type F03.91 [facility] [place] [id number], [place] [address]- 5185 December, [facility] [place] [id number], [place] [address]- 2763 December, Other chronic pain G89.29 [facility] [place] [id number], [place] [address]- 1581 December, [facility] [place] [id number], [place] [address]- 5987 December, Unsteady gait R26.81 ; Generalized weakness R53.1 ; Unspecified mental disorder due to known physiological condition F09 and Generalized headaches R51 [facility] [place] [id number] [place] [address] 49807- 7241 December, [facility] [place] [id number] [place] [address] 91353- 3346 Nov, Anxiety F41.9 [facility] [id number] [place] [address] 76957- 3088 Nov, Mood disorder F39 [facility] [id number] [place] [address] 29993- 1844 Oct, [facility] [id number] [place] [address] 20036- 5159 Oct, Anxiety F41.9 [facility] [id number] [place] [address] 16924- 5823 Oct, Other chronic pain G89.29 [facility] [id number] [place] [address] 15491- 9783 Sep, Other chronic pain G89.29 ; Pain in left knee M25.562 ; Pain in right knee M25.561 and Anxiety F41.9 [facility] [address] [place] [address] 49143- 4624 Sep, MDD (major depressive disorder), recurrent episode, mild F33.0 ; Degenerative brain disorder G31.9 and Other senior care (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 Z79.899 [facility] [address] [place] [address] 78446- 3265 Sep, [facility] [id number] [place] [address] 29927- 5476 Sep, [facility] [address] [place] [address] 18631- 2275 Sep, Mood disorder F39 ; Pain of left leg M79.605 and Pain in right leg M79.604 [facility] [address], [place] [address]- 0761 14 Sep, 2016 Seizures R56.9 [facility] [id number] [place] [address] 43473 2546 08 Sep, 2016 [facility] [place] [id number] [place] [address] 71929- 3636 Sep, [facility] [place] [id number] [place] [address] 31456- 3877 Sep, [facility] [place] [id number] [place] [address] 83484- 9592 Aug, Bronchitis J40 [facility] [place] [id number] [place] [address] 03536- 7031 Aug, Bronchitis J40 and Encounter for drug screening Z02.83 [facility] [id number] [place] [address] 55101- 7383 Aug, [facility] [place] [address] [place] [address] 69311- 5164 Aug, Seizures R56.9 [facility] [place] [id number] [place] [address] 86191 2546 Aug, Seizures R56.9 [facility] [id number] [place] [address] 40578- 5056 Aug, Major depressive disorder, recurrent, moderate F33.1 and Seizures R56.9 [facility] [address], [place] [address] 2546 Aug, [facility] [id number] [place] [address] 10336- 9097 Aug, [facility] [id number] [place] [address] 09458- 8945 Aug, Major depressive disorder, recurrent, moderate F33.1 and Seizures R56.9 [facility] [id number] [place] [address] 60496- 8925 Jul, Major depressive disorder, recurrent, moderate F33.1 and Degenerative brain disorder G31.9 [facility] [facility] [address] [place] [address] 1817 Jul, Seizures R56.9 [facility] [facility] [address] [place] [address] 75586- 8403 Apr, [place] [facility] [id number] [place] [address] Apr, Major depressive disorder, recurrent, moderate F33.1 ; Anxiety F41.9 and Degenerative brain disorder G31.9 [facility] [facility] [id number] [place] [address] 724027- 7068 Apr, Mood disorder F39 [facility] [facility] [id number] [place] [address] 66719- 9226 Apr, Arthritis M19.90 [facility] [facility] [id number] [place] [address] 29074- 1007 Mar, Arthritis M19.90 ; Degenerative brain disorder G31.9 and Nonintractable generalized idiopathic epilepsy without status epilepticus G40.309 [facility] [facility] [address] [place] [address]- 8354 Feb, IMMUNIZATIONS No Known Immunizations SOCIAL HISTORY Never Assessed REASON FOR VISIT Controlled Med Refill 04/17/19 PLAN OF CARE VITAL SIGNS MEDICATIONS Medication Instructions Dosage Frequency Start Date End Date Duration Status Clonazepam 1 MG Orally Twice a day 1/2 tab in the AM and 1 tab in the PM 12h Sep, 28 days Active RESULTS No Results PROCEDURES No Known procedures INSTRUCTIONS MEDICATIONS ADMINISTERED No Known Medications MEDICAL (GENERAL) HISTORY Type Description Date Medical History Toxoplasmosis Medical History migraine Medical History dementia Medical History depression Medical History alzheimers disease Medical History epilepsy Medical History COPD Surgical History cholecystectomy Surgical History appendectomy Surgical History 27 brain surgeries including shunt, [place] Surgical History neck fusion 09/26, 09/28 Surgical History right hand surgery Hospitalization History surgeries Hospitalization History seizures 12/2015
--- OUTSIDE RECORDS SUMMARY | 2018-07-01 14:06 | XMS REPORT ---
Author Author ESTEPHANIA IVAN Organization [facility] Address [address] [place] [address] Care Team Providers Care Veneer Glue Spreader Name Role Phone ESTEPHANIA IVAN Unavailable PROBLEMS Type Condition ICD9-CM Code MQE74-TM Code Onset Dates Condition Status SNOMED Code Problem Unspecified mental disorder due to known physiological condition F09 Active 052788463 Problem Major depressive disorder, recurrent, moderate F33.1 Active 98139942 Problem Dementia with behavioral disturbance, unspecified dementia type F03.91 Active 4846174476728 Problem Mood disorder F39 Active 84570706 Problem Other chronic pain G89.29 Active 41588856 Problem Anxiety F41.9 Active 03269165 Problem Unsteady gait R26.81 Active 94942906 Problem History of brain shunt Z98.2 Active 005243250 Problem PTSD (post-traumatic stress disorder) F43.10 Active 64762636 Problem Sleep apnea, unspecified type G47.30 Active 01565962 Problem Degenerative brain disorder G31.9 Active 82102939 Problem Depressive disorder, not elsewhere classified F32.9 Active 38813961 Problem Other chronic pain G89.29 Active 80995082 ALLERGIES No Information ENCOUNTERS Encounter Location Date Diagnosis [place] [address] [address] May, [place] [id number] [place] [address] 14111- 4790 24 Apr, 2018 PTSD (post-traumatic stress disorder) F43.10 [place] [address] [address] Apr, [place] [id number] [address] 7[address] Apr, History of brain shunt Z98.2 [place] [id number] [address] 8831 10 Apr, 2018 PTSD (post-traumatic stress disorder) F43.10 [facility] [id number] [place] [address] 75277 2546 07 Apr, 2018 History of brain shunt Z98.2 [facility] [address] [address] 2546 04 Apr, 2018 History of brain shunt Z98.2 [facility] [address] [place] [id number] Mar, History of brain shunt Z98.2 ; Depressive disorder, not elsewhere classified F32.9 ; Degenerative brain disorder G31.9 ; Unsteady gait R26.81 ; Other chronic pain G89.29 and Daily headache R51 [place] [address] [place] [address] 15320- 4107 Mar, PTSD (post-traumatic stress disorder) F43.10 [place] [address] [address] Mar, [facility] [id number] [place] [address] 43716- 7266 Feb, PTSD (post-traumatic stress disorder) F43.10 [facility] [address] [address] 2546 Feb, PTSD (post-traumatic stress disorder) F43.10 [place] [address] [place] [address] 11969 254 Feb, Other chronic pain G89.29 and Pain in right knee M25.561 [place] [id number] [place] [address] 73336- 0656 Feb, PTSD (post-traumatic stress disorder) F43.10 [facility] [address] [address] 2546 Feb, [facility] [address] [place] [id number] Jan, Dementia with behavioral disturbance, unspecified dementia type F03.91 ; Other chronic pain G89.29 and Plantar fasciitis M72.[address] [facility] [address] [id number] Jan, Daily headache R51 ; History of brain shunt Z98.2 ; Plantar fasciitis of left foot M72.2 ; Pain in right knee M25.561 and Pain in left knee M25.562 [facility] [id number] [place] [address] 89742- 5298 14 Jan, 2018 [facility] [id number] [place] [address] 61145- 7915 Jan, Pain in right knee M25.561 [facility] [id number] [place] [address] 61711- 8086 Jan, [facility] [id number] [place] [address] 14539- 1870 Jan, [facility] [id number] [place] [address] 80916- 1272 Jan, [facility] [id number] [place] [address] 86794- 7106 December, Other chronic pain G89.[address] [facility] [address] [id number] December, Pain in left knee M25.562 ; Pain in right leg M79.604 ; Other chronic pain G89.29 ; Localized edema R60.0 and PTSD (post-traumatic stress disorder) F43.10 [facility] [address] [address] 7[address] December, [facility] [id number] [place] [address] 35931- 3003 December, PTSD (post-traumatic stress disorder) F43.10 [facility] [address]16[address] [address] 6866 December, [facility] [id number] [place] [address] 75810- 3261 December, [facility] [id number] [place] [address] 92288- 3371 December, Depressive disorder, not elsewhere classified F32.9 and Cognitive change R41.89 [facility] [address] [place] [address] 87224- 6329 Nov, Major depressive disorder, recurrent, moderate F33.1 [facility] [id number] [place] [address] 36264- 6837 Nov, [facility] [id number] [place] [address] 02883- 2065 Nov, [facility] [id number] [place] [address] 27661- 7013 Nov, [facility] [id number] [place] [address] 06644- 2480 Nov, [facility] [id number] [place] [address] 21650- 0456 Nov, Mood disorder F39 [facility] [id number] [place] [address] 38604- 4103 Nov, Depressive disorder, not elsewhere classified F32.9 and Cognitive change R41.89 [facility] [address] [place] [address] 60065- 3701 Nov, [facility] [id number] [place] [address] 61239- 6209 Nov, [facility] [address] [place] [id number] Oct, Tear of skin of plantar aspect of right foot, initial encounter S91.311A [facility] [id number] [place] [address] 29182- 2313 Oct, [facility] [address] [place] [address] 66325- 2644 Oct, [facility] [address] [place] [id number] [id number] Oct, [facility] [id number] [place] [id number] Oct, [facility] [id number] [place] [address] Sep, [facility] [id number] [place] [id number] Sep, [facility] [address] [id number] [id number] Sep, [facility] [id number] [place] [address] Sep, [facility] [address] [address]- 7556 Sep, [facility] [address] [address]- 5856 Sep, Other chronic pain G89.29 and Pain in left knee M25.562 [facility] [address] [address] 0796 Sep, [facility] [address] [place] [id number] Sep, Plantar fasciitis of left foot M72.2 and Pain in right knee M25.561 [facility] [id number] [place] [id number] Aug, [facility] [id number] [address] 2387 Aug, [facility] [id number] [address]- 4296 Aug, [facility] [address] [address] Aug, Chronic daily headache R51 [facility] [id number] [address] 4417 Aug, [facility] [address] [place] [id number] Aug, Edema, unspecified type R60.9 ; Weight gain R63.5 and Sleep apnea, unspecified type G47.30 [facility] [address] [place] [id number] Jul, Acute pain of left knee M25.562 and Plantar fasciitis of left foot M72.2 [facility] [address] [address] 4876 Jul, [facility] [address] [place] [id number] Jul, Plantar fasciitis of left foot M72.2 and Chronic daily headache R51 [facility] [id number] [place] [address] Jul, [facility] [address] [id number] Jun, [facility] [id number] [address] 4757 Jun, [facility] [id number] [place] [address] [id number] Jun, [facility] [address] [address] Jun, [facility] [address] [address] May, [facility] [id number] [place] [address] [id number] May, [facility] [id number] [address]- 0035 May, Stress incontinence of urine N39.3 [facility] [id number] [place] [address] May, [facility] [id number] May, Encounter for examination for admission to detention Z02.2 ; Toxoplasmosis B58.9 ; Seizures R56.9 ; Major depressive disorder, recurrent, moderate F33.1 ; Degenerative brain disorder G31.9 and Unsteady gait R26.81 [facility] [id number] [place] [address] 77581- 6487 May, [facility] [id number] [place] [address] 02064- 9217 May, Mood disorder F39 [facility] [id number] [place] [address] 95449- 3767 May, [facility] [id number] [place] [address] 54077- 5694 Apr, [facility] [id number] [place] [address] 36964- 0331 Mar, [facility] [id number] [place] [address] 81049- 6183 Mar, [facility] [id number] [place] [address] 39726- 0786 Mar, [facility] [id number] [place] [address] 91426- 2638 Mar, [facility] [id number] [place] [address] 86846- 0485 Mar, [facility] [id number] [place] [address] 66475- 1051 Mar, Stress incontinence of urine N39.3 [facility] [id number] [place] [address] [id number] Mar, [facility] [id number] [place] [address] 83685- 1326 Feb, [facility] [id number] [place] [address] 48738- 4441 Feb, [facility] [id number] [place] [address] 09167- 6833 Feb, [facility] [address] [facility] [id number] [place] [address]- 7828 Feb, [facility] [address] [facility] [id number] [place] [address]- 2520 Feb, [facility] [address] [facility] [id number] [place] [address]- 0316 Feb, [facility] [address] [facility] [id number] [place] [address]- 0039 Feb, [facility] [address] [facility] [id number] [place] [address]- 8233 Jan, [facility] [address] [facility] [id number] [place] [address]- 1290 Jan, [facility] [address] [place] [id number] [place] [address]- 6215 Jan, [facility] [address] [place] [address] [id number] [place] [address]- 1986 Jan, [facility] [address] [place] [address] [id number] [place] [address]- 3250 Jan, [facility] [address] [address]- 2843 Jan, [facility] [address] [place] [address]- 6881 Jan, [facility] [id number] [address]- 2195 Jan, General weakness R53.1 and Dementia with behavioral disturbance, unspecified dementia type F03.91 [facility] [address] [facility] [id number] [address]- 6866 December, [facility] [address] [facility] [id number] [place] [address]- 8373 December, Other chronic pain G89.29 [facility] [id number] [address]- 3690 December, [facility] [address] [place] [address] 40218- 6116 December, Unsteady gait R26.81 ; Generalized weakness R53.1 ; Unspecified mental disorder due to known physiological condition F09 and Generalized headaches R51 [facility] [id number] [place] [address] 46882- 3923 December, [facility] [id number] [place] [address] 77521- 7296 Nov, Anxiety F41.9 [facility] [id number] [place] [address] 79156- 1229 Nov, Mood disorder F39 [facility] [id number] [place] [address] 68285- 4068 Oct, [facility] [id number] [place] [address] 13179- 6434 Oct, Anxiety F41.9 [facility] [id number] [place] [address] 94309- 6236 Oct, Other chronic pain G89.29 [facility] [id number] [place] [address] 38183- 3014 Sep, Other chronic pain G89.29 ; Pain in left knee M25.562 ; Pain in right knee M25.561 and Anxiety F41.9 [facility] [id number] [place] [address] 57823- 1430 Sep, MDD (major depressive disorder), recurrent episode, mild F33.0 ; Degenerative brain disorder G31.9 and 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 [facility] [id number] [place] [address] 97223- 7765 Sep, [facility] [id number] [place] [address] 25837- 6588 Sep, [facility] [id number] [place] [address] 63660- 0180 Sep, Mood disorder F39 ; Pain of left leg M79.605 and Pain in right leg M79.604 [facility] [id number] [place] [address] 64273- 2251 14 Sep, 2016 Seizures R56.9 [facility] [id number] [place] [address] 40345 2546 Sep, [facility] [address] [address]34- 1960 Sep, [facility] [address] 83734- 2956 Sep, [facility] [id number] [place] [address] 55376- 2502 Aug, Bronchitis J40 [facility] [address] 37892- 3587 Aug, Bronchitis J40 and Encounter for drug screening Z02.83 [facility] [id number] [place] [address] 98634- 1631 Aug, [facility] [id number] [place] [address] 43404- 8736 Aug, Seizures R56.9 [facility] [id number] [place] [address] 70700 2544 Aug, Seizures R56.9 [facility] [id number] [place] [address] 71444 2541 Aug, Major depressive disorder, recurrent, moderate F33.1 and Seizures R56.9 [facility] [id number] [place] [address] 17403 2546 Aug, [facility] [id number] [place] [address] 97798- 0484 Aug, [facility] [id number] [place] [address] 86371- 9930 Aug, Major depressive disorder, recurrent, moderate F33.1 and Seizures R56.9 [place] [id number] [place] [address] 83168- 2979 Jul, Major depressive disorder, recurrent, moderate F33.1 and Degenerative brain disorder G31.9 [place] [id number] [place] [address] 17237- 9493 Jul, Seizures R56.9 [place] [address] 80814- 6035 Apr, [place] [id number] [place] [address] 57722- 6539 Apr, Major depressive disorder, recurrent, moderate F33.1 ; Anxiety F41.9 and Degenerative brain disorder G31.9 [place] [id number] [place] [address] 06777- 9938 Apr, Mood disorder F39 [place] [id number] [place] [address] 52341- 2571 Apr, Arthritis M19.90 [place] [id number] [place] [address] 86326- 8013 Mar, Arthritis M19.90 ; Degenerative brain disorder G31.9 and Nonintractable generalized idiopathic epilepsy without status epilepticus G40.309 [place] [id number] [place] [address] 73052- 2242 Feb, IMMUNIZATIONS No Known Immunizations SOCIAL HISTORY Never Assessed REASON FOR VISIT Facility request neuro referral PLAN OF CARE Activity Details Follow Up prn Reason: VITAL SIGNS MEDICATIONS Medication Instructions Dosage Frequency Start Date End Date Duration Status Ditropan XL 5 mg Orally Once a day 1 tablet 24h Mar, 30 day(s) Active Potassium Chloride Noni ER 20 meq Orally Once a day 1 tablet with food 24h December, Apr, 30 day(s) Active Colace 100 mg Orally twice a day 1 capsule 12h Active Depakote 500 MG Active Ondansetron 4 MG Orally every 8 hrs PRN 1 tablet on the tongue and allow to dissolve Aug, Active Clonidine HCl 0.1 MG Orally Twice a day 1 tablet 12h Active Levetiracetam 500 MG Orally Twice a day 1 tablet 12h Active Furosemide 40 mg Orally Once a day in AM 1 tablet 08 Sep, 2017 30 day (s) Active Zyrtec Allergy 10 mg Orally Once a day 1 tablet as needed 24h 19 May, 2017 30 day(s) Active Percocet 7.5-325 MG Orally every 6 hrs 1 tablet as needed 6h 16 Mar, 2018 28 days Active Naproxen 500 MG Orally every 12 hrs 1 tablet as needed 12h 30 Active Biofreeze 4 % Externally Once a day at bedtime 1 applicationt both ankles Active Clonazepam 1 MG Orally Twice a day 1/2 tab in the AM and 1 tab in the PM 12h Sep, 28 days Active Memantine HCl 5 MG TAKE 1 TABLET BY MOUTH ONCE DAILY 30 Active Omeprazole 20 mg Orally Once a day 1 capsules 24h Active Amitriptyline HCl 50 MG Orally Once a day at bedtime 1 tablet 30 days Active ProAir HFA 108 (90 Base) MCG/ACT Inhalation every 4 hrs 2 puffs as needed for cough or short of breath 4h 30 Active Neurontin 300 MG Orally 3 times a day 1 capsule 8h 10 Aug, 2017 Active RESULTS No Results PROCEDURES Procedure Date Ordered Result Body Site Minor complication (15 mins) Apr 20, 2018 INSTRUCTIONS MEDICATIONS ADMINISTERED No Known Medications MEDICAL (GENERAL) HISTORY Type Description Date Medical History Toxoplasmosis Medical History migraine Medical History dementia Medical History depression Medical History alzheimers disease Medical History epilepsy Medical History COPD Surgical History cholecystectomy Surgical History appendectomy Surgical History 27 brain surgeries including shunt, [place] Surgical History neck fusion 09/26, 09/28 Surgical History right hand surgery Hospitalization History surgeries Hospitalization History seizures 12/2015
--- OUTSIDE RECORDS SUMMARY | 2018-07-01 14:06 | XMS REPORT ---
Author Author ESTEPHANIA IVAN Organization [facility] Address [address] [place] [address] Care Team Providers Care Management Accounts Manager Name Role Phone ESTEPHANIA IVAN Unavailable PROBLEMS Type Condition ICD9-CM Code NOY08-SP Code Onset Dates Condition Status SNOMED Code Problem Unspecified mental disorder due to known physiological condition F09 Active 699042384 Problem Major depressive disorder, recurrent, moderate F33.1 Active 22282487 Problem Dementia with behavioral disturbance, unspecified dementia type F03.91 Active 6338285927089 Problem Mood disorder F39 Active 23721951 Problem Other chronic pain G89.29 Active 73751102 Problem Anxiety F41.9 Active 04448439 Problem Unsteady gait R26.81 Active 37957716 Problem History of brain shunt Z98.2 Active 608176203 Problem PTSD (post-traumatic stress disorder) F43.10 Active 16735486 Problem Sleep apnea, unspecified type G47.30 Active 23194379 Problem Degenerative brain disorder G31.9 Active 91289208 Problem Depressive disorder, not elsewhere classified F32.9 Active 77999433 Problem Other chronic pain G89.29 Active 54376941 ALLERGIES No Information ENCOUNTERS Encounter Location Date Diagnosis [facility] [id number] [address] May, [facility] [address], [place] [address] Apr, [facility] [address], [place] [address] Apr, History of brain shunt Z98.2 [facility] [id number], [place] [address] Apr, PTSD (post-traumatic stress disorder) F43.10 [facility] [id number] [place] [address] 11560- 7429 07 Apr, 2018 History of brain shunt Z98.2 [facility] [id number] [place] [address] 09975- 6463 04 Apr, 2018 History of brain shunt Z98.[address] [facility] [address] [id number] Mar, History of brain shunt Z98.2 ; Depressive disorder, not elsewhere classified F32.9 ; Degenerative brain disorder G31.9 ; Unsteady gait R26.81 ; Other chronic pain G89.29 and Daily headache R51 [facility] [id number] [place] [address] 17919- 9131 Mar, PTSD (post-traumatic stress disorder) F43.10 [facility] [id number] [place] [address] 97579- 5334 Mar, [facility] [id number] [place] [address] 83874- 4351 Feb, PTSD (post-traumatic stress disorder) F43.10 [facility] [id number] [place] [address] 63198- 8847 Feb, PTSD (post-traumatic stress disorder) F43.10 [facility] [facility] [id number] [place] [address] 76258- 9302 Feb, Other chronic pain G89.29 and Pain in right knee M25.561 [facility] [id number] [place] [address] 03161- 7905 Feb, PTSD (post-traumatic stress disorder) F43.10 [facility] [id number] [place] [address] 76142- 6446 Feb, [facility] [address] [id number] Jan, Dementia with behavioral disturbance, unspecified dementia type F03.91 ; Other chronic pain G89.29 and Plantar fasciitis M72.[address] [facility] [address] [id number] Jan, Daily headache R51 ; History of brain shunt Z98.2 ; Plantar fasciitis of left foot M72.2 ; Pain in right knee M25.561 and Pain in left knee M25.562 [facility] [address], [place] [address] Jan, [facility] [id number] [place] [address] 65756- 0597 Jan, Pain in right knee M25.561 [facility] [id number] [place] [address] 65185- 1411 Jan, [facility] [id number] [place] [address] 19519- 6976 Jan, [facility] [id number] [place] [address] 22130- 8239 Jan, [facility] [id number] [place] [address] 09495- 0073 December, Other [facility] G89.29 [facility] [address] [place] [id number] December, Pain in left knee M25.562 ; Pain in right leg M79.604 ; Other chronic pain G89.29 ; Localized edema R60.0 and PTSD (post-traumatic stress disorder) F43.10 [facility] [address], [place] [address] December, [facility] [address], [place] [address] 78[address] December, PTSD (post-traumatic stress disorder) F43.10 [facility] [address], [place] [address] 69[address] December, [facility] [address], [place] [address] 8872 December, [facility] [id number] [place] [address] 07741- 9125 December, Depressive disorder, not elsewhere classified F32.9 and Cognitive change R41.89 [facility] [id number] [place] [address] 49390- 8842 Nov, Major depressive disorder, recurrent, moderate F33.1 [facility] [id number] [place] [address] 57408- 5063 Nov, [facility] [id number] [place] [address] 20360- 1776 Nov, [facility] [id number] [place] [address] 59483- 1053 Nov, [facility] [id number] [place] [address] 40190- 4892 Nov, [facility] [id number] [place] [address] 39405- 7083 Nov, Mood disorder F39 [facility] [id number] [place] [address] 98703- 1758 Nov, Depressive disorder, not elsewhere classified F32.9 and Cognitive change R41.89 [facility] [id number] [place] [address] 16953- 7504 Nov, [facility] [id number] [place] [address] 47910- 2032 Nov, [facility] [address] [place] [id number] Oct, Tear of skin of plantar aspect of right foot, initial encounter S91.311A [facility] [address], [place] [address] Oct, [facility] [id number] [place] [address] 56362- 9122 14 Oct, 2017 [facility] [id number] [place] [id number] Oct, [facility] [id number] [place] [id number] Oct, [facility] [place] [address] [id number] [id number] Sep, [facility] [place] [id number] [id number] Sep, [facility] [place] [id number] [id number] Sep, [facility] [place] [id number] [id number] Sep, [facility] [id number], [place] [address] 7[address] Sep, [facility] [address] [place] [address] 28073- 3016 Sep, Other chronic pain G89.29 and Pain in left knee M25.562 [facility] [id number] [place] [address] 26102- 9056 Sep, [facility] [place] [address] [place] [id number] Sep, Plantar fasciitis of left foot M72.2 and Pain in right knee M25.561 [facility] [id number] [id number] Aug, [facility] [id number], [place] [address] 3666 Aug, [facility] [id number], [place] [address] 5306 Aug, [facility] [id number], [place] [address] 0521 Aug, Chronic daily headache R51 [facility] [id number], [place] [address] 2376 Aug, [facility] [place] [address] [place] [id number] Aug, Edema, unspecified type R60.9 ; Weight gain R63.5 and Sleep apnea, unspecified type G47.30 [facility] [place] [address] [place] [id number] Jul, Acute pain of left knee M25.562 and Plantar fasciitis of left foot M72.2 [facility] [address] [facility] [id number], [place] [address] 2546 Jul, [facility] [place] [address] [place] [id number] Jul, Plantar fasciitis of left foot M72.2 and Chronic daily headache R51 [facility] [address] [id number] [id number] Jul, [facility] [address] [id number] [id number] Jun, [facility] [address] [facility] [id number], [place] [address] 7[address] Jun, [facility] [address] [id number] [id number] Jun, [facility] [address] [id number] [id number] Jun, [facility] [id number] [place] [address] [id number] May, [facility] [address] [id number] [id number] May, [facility] [address] [facility] [id number], [place] [address]- 2546 May, Stress incontinence of urine N39.3 [facility] [address] [id number] [id number] May, [facility] [id number] May, Encounter for examination for admission to fdc Z02.2 ; Toxoplasmosis B58.9 ; Seizures R56.9 ; Major depressive disorder, recurrent, moderate F33.1 ; Degenerative brain disorder G31.9 and Unsteady gait R26.81 [facility] [address] [id number] [place] [address]- 3766 May, [facility] [address] [id number] [place] [address]- 9154 May, Mood disorder F39 [facility] [address] [id number] [place] [address] May, [facility] [place] [facility] [id number] [place] [address], [place] [address]- 6188 Apr, [facility] [address] [id number] [place] [address]- 7260 Mar, [facility] [place] [facility] [address] [id number] [place] [address]- 8787 Mar, [facility] [address] [facility] [id number] [place] [address]- 2040 Mar, [facility] [address] [facility] [id number] [place] [address] 64895- 3903 Mar, [facility] [address] [id number] [place] [address]- 1912 Mar, [facility] [id number], [place] [address] 1067 Mar, Stress incontinence of urine N39.3 [facility] [address] [id number] [id number] Mar, [facility] [place] [facility] [address] [facility] [id number], [place] [address]- 3029 Feb, [facility] [place] [facility] [address] [id number] [place] [address]- 0523 Feb, [facility] [place] [facility] [address] [facility] [id number], [place] [address]- 5407 Feb, [facility] [place] [facility] [address] [facility] [id number], [place] [address]- 8237 Feb, [facility] [place] [facility] [id number], [place] [address]- 4245 Feb, [facility] [address] [facility] [id number], [place] [address]- 4898 Feb, [facility] [address] [facility] [id number], [place] [address]- 8244 Feb, [facility] [address], [place] [address]- 2859 Jan, [facility] [address] [facility] [id number], [place] [address]- 1875 Jan, [facility] [address], [place] [address]- 3085 Jan, [facility] [id number], [place] [address]- 3952 Jan, [facility] [address], [place] [address]- 9065 Jan, [facility] [address], [place] [address]- 5326 Jan, [facility] [address], [place] [address]- 3036 Jan, [facility] [id number], [place] [address]- 6885 Jan, General weakness R53.1 and Dementia with behavioral disturbance, unspecified dementia type F03.91 [facility] [id number], [place] [address]- 9757 December, [facility] [id number], [place] [address]- 4292 December, Other chronic pain G89.29 [facility] [id number], [place] [address]- 2920 December, [facility] [id number], [place] [address]- 4280 December, Unsteady gait R26.81 ; Generalized weakness R53.1 ; Unspecified mental disorder due to known physiological condition F09 and Generalized headaches R51 [facility] [id number] [place] [address] 53760- 6232 December, [facility] [id number] [place] [address] 47156- 4134 Nov, Anxiety F41.9 [facility] [id number] [place] [address] 69500- 7894 Nov, Mood disorder F39 [facility] [id number] [place] [address] 01130- 4454 Oct, [facility] [id number] [place] [address] 34859- 7774 Oct, Anxiety F41.9 [facility] [id number] [place] [address] 83462- 0335 Oct, Other chronic pain G89.29 [facility] [id number] [place] [address] 38677- 4372 Sep, Other chronic pain G89.29 ; Pain in left knee M25.562 ; Pain in right knee M25.561 and Anxiety F41.9 [place] [id number] [place] [address] 31102- 3109 Sep, MDD (major depressive disorder), recurrent episode, mild F33.0 ; Degenerative brain disorder G31.9 and Other care home (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 Z79.899 [facility] [id number] [place] [address] 58800- 5444 Sep, [facility] [id number] [place] [address] 26038- 4506 Sep, [place] [facility] [id number] [place] [address] 28737- 8697 Sep, Mood disorder F39 ; Pain of left leg M79.605 and Pain in right leg M79.604 [facility] [address], [place] [address]- 8156 14 Sep, 2016 Seizures R56.9 [facility] [id number] [place] [address] 30090 2546 08 Sep, 2016 [facility] [id number] [place] [address] 23523- 3996 Sep, [facility] [id number] [place] [address] 64211- 5069 Sep, [facility] [id number] [place] [address] 82916- 5907 Aug, Bronchitis J40 [facility] [id number] [place] [address] 72567- 9573 Aug, Bronchitis J40 and Encounter for drug screening Z02.83 [facility] [id number] [place] [address] 41631- 5642 Aug, [facility] [id number] [place] [address] 60365- 6734 Aug, Seizures R56.9 [facility] [id number] [place] [address] 60714 2546 Aug, Seizures R56.9 [facility] [id number] [place] [address] 31392- 5351 Aug, Major depressive disorder, recurrent, moderate F33.1 and Seizures R56.9 [facility] [address], [place] [address] 2546 Aug, [facility] [id number] [place] [address] 96175- 6613 Aug, [facility] [id number] [place] [address] 34502- 0440 Aug, Major depressive disorder, recurrent, moderate F33.1 and Seizures R56.9 [facility] [id number] [place] [address] 45819- 0111 Jul, Major depressive disorder, recurrent, moderate F33.1 and Degenerative brain disorder G31.9 [place] [id number] [place] [id number] 3723 Jul, Seizures R56.9 [place] [id number] [place] [address] 62415- 4719 Apr, [place] [facility] [id number] [place] [address] 0786 Apr, Major depressive disorder, recurrent, moderate F33.1 ; Anxiety F41.9 and Degenerative brain disorder G31.9 [place] [id number] [place] [address] 504984- 1058 Apr, Mood disorder F39 [place] [id number] [place] [address] 53221- 2209 Apr, Arthritis M19.90 [place] [facility] [id number] [place] [address] 45571- 5888 Mar, Arthritis M19.90 ; Degenerative brain disorder G31.9 and Nonintractable generalized idiopathic epilepsy without status epilepticus G40.309 [place] [address] [place] [id number] 5736 Feb, IMMUNIZATIONS No Known Immunizations SOCIAL HISTORY Never Assessed REASON FOR VISIT Controlled Med Refill PLAN OF CARE VITAL SIGNS MEDICATIONS Medication Instructions Dosage Frequency Start Date End Date Duration Status Percocet 7.5-325 MG Orally every 6 hrs 1 tablet as needed 6h Mar, 28 days Active RESULTS No Results PROCEDURES No Known procedures INSTRUCTIONS MEDICATIONS ADMINISTERED No Known Medications MEDICAL (GENERAL) HISTORY Type Description Date Medical History Toxoplasmosis Medical History migraine Medical History dementia Medical History depression Medical History alzheimers disease Medical History epilepsy Medical History COPD Surgical History cholecystectomy Surgical History appendectomy Surgical History 27 brain surgeries including shunt, [place] Surgical History neck fusion 09/26, 09/28 Surgical History right hand surgery Hospitalization History surgeries Hospitalization History seizures 12/2015
--- OUTSIDE RECORDS SUMMARY | 2018-07-01 14:07 | XMS REPORT ---
Author Author ESTEPHANIA IVAN Organization [facility] Address [address] [place] [address] Care Team Providers Care Bow Tacker Name Role Phone ESTEPHANIA IVAN Unavailable PROBLEMS Type Condition ICD9-CM Code YUV40-RW Code Onset Dates Condition Status SNOMED Code Problem Unspecified mental disorder due to known physiological condition F09 Active 731333076 Problem Major depressive disorder, recurrent, moderate F33.1 Active 90949537 Problem Dementia with behavioral disturbance, unspecified dementia type F03.91 Active 2068441924006 Problem Mood disorder F39 Active 03889847 Problem Other chronic pain G89.29 Active 88566422 Problem Anxiety F41.9 Active 33567556 Problem Unsteady gait R26.81 Active 53368225 Problem History of brain shunt Z98.2 Active 921755853 Problem PTSD (post-traumatic stress disorder) F43.10 Active 64077915 Problem Sleep apnea, unspecified type G47.30 Active 12413259 Problem Degenerative brain disorder G31.9 Active 67582419 Problem Depressive disorder, not elsewhere classified F32.9 Active 14420186 Problem Other chronic pain G89.29 Active 88568841 ALLERGIES No Information ENCOUNTERS Encounter Location Date Diagnosis [facility] [id number], [place] [address] May, [facility] [address], [place] [address] Apr, [facility] [address], [place] [address] Apr, History of brain shunt Z98.2 [facility] [id number], [place] [address] Apr, PTSD (post-traumatic stress disorder) F43.10 [facility] [address] [place] [address] 56382- 0345 07 Apr, 2018 History of brain shunt Z98.2 [facility] [address] [place] [address] 07615- 9206 04 Apr, 2018 History of brain shunt Z98.[address] [facility] [address] [id number] Mar, History of brain shunt Z98.2 ; Depressive disorder, not elsewhere classified F32.9 ; Degenerative brain disorder G31.9 ; Unsteady gait R26.81 ; Other chronic pain G89.29 and Daily headache R51 [address] [id number] [place] [address] 18211- 2300 Mar, PTSD (post-traumatic stress disorder) F43.10 [place] [id number] [place] [address] 06158- 6524 Mar, [place] [facility] [id number] [place] [address] 59726- 1596 Feb, PTSD (post-traumatic stress disorder) F43.10 [place] [id number] [place] [address] 64857- 7553 Feb, PTSD (post-traumatic stress disorder) F43.10 [place] [address] [place] [address] 16485- 3385 Feb, Other chronic pain G89.29 and Pain in right knee M25.561 [place] [facility] [id number] [place] [address] 98728- 4489 Feb, PTSD (post-traumatic stress disorder) F43.10 [place] [id number] [place] [address] 12613- 8679 Feb, [facility] [address] [id number] Jan, Dementia with behavioral disturbance, unspecified dementia type F03.91 ; Other chronic pain G89.29 and Plantar fasciitis M72.[address] [facility] [address] [id number] Jan, Daily headache R51 ; History of brain shunt Z98.2 ; Plantar fasciitis of left foot M72.2 ; Pain in right knee M25.561 and Pain in left knee M25.562 [facility] [address], [place] [address] 7[address] Jan, [facility] [id number] [place] [address] 19653- 0103 Jan, Pain in right knee M25.561 [facility] [id number] [place] [address] 86574- 3669 Jan, [facility] [id number] [place] [address] 36883- 7711 Jan, [facility] [id number] [place] [address] 15728- 8597 Jan, [facility] [id number] [place] [address] 83587- 9750 December, [facility]89.29 [facility] [address] [place] [id number] December, Pain in left knee M25.562 ; Pain in right leg M79.604 ; Other chronic pain G89.29 ; Localized edema R60.0 and PTSD (post-traumatic stress disorder) F43.10 [facility] [address], [place] [address] December, [facility] [address], [place] [address] 3886 December, PTSD (post-traumatic stress disorder) F43.10 [facility] [address], [place] [address] 1425 December, [facility] [address], [place] [address] 3528 December, [facility] [id number] [place] [address] 39788- 5050 December, Depressive disorder, not elsewhere classified F32.9 and Cognitive change R41.89 [facility] [address] [place] [address] 31406- 2630 Nov, Major depressive disorder, recurrent, moderate F33.1 [facility] [address] [place] [address] 00972- 5326 Nov, [facility] [id number] [place] [address] 94010- 1186 Nov, [facility] [address] [place] [address] 68620- 0068 Nov, [facility] [id number] [place] [address] 80648- 6603 Nov, [facility] [id number] [place] [address] 53307- 6374 Nov, Mood disorder F39 [facility] [id number] [place] [address] 12900- 1121 Nov, Depressive disorder, not elsewhere classified F32.9 and Cognitive change R41.89 [facility] [id number] [place] [address] 37987- 3679 Nov, [facility] [address] [address] 42338- 9701 Nov, [facility] [address] [place] [id number] Oct, Tear of skin of plantar aspect of right foot, initial encounter S91.311A [facility] [address], [place] [address] 7207 Oct, [facility] [address] [address] 90065- 5108 14 Oct, 2017 [facility] [id number] [place] [address] [id number] Oct, [facility] [id number] [place] [address] [id number] Oct, [facility] [address] [id number] [id number] Sep, [facility] [id number] [id number] Sep, [facility] [id number] [id number] Sep, [facility] [id number] [id number] Sep, [facility] [id number], [place] [address] 9016 Sep, [facility] [address] [place] [address] 88871- 2606 Sep, Other chronic pain G89.29 and Pain in left knee M25.562 [facility] [address] [place] [address] 47894- 1416 Sep, [facility] [address] [place] [id number] Sep, Plantar fasciitis of left foot M72.2 and Pain in right knee M25.561 [facility] [id number] [id number] Aug, [facility] [id number], [place] [address]- 8256 Aug, [facility] [id number], [place] [address] 9716 Aug, [facility] [id number], [place] [address] 5080 Aug, Chronic daily headache R51 [facility] [id number], [place] [address]- 9796 Aug, [facility] [address] [place] [id number] Aug, Edema, unspecified type R60.9 ; Weight gain R63.5 and Sleep apnea, unspecified type G47.30 [facility] [address] [place] [id number] Jul, Acute pain of left knee M25.562 and Plantar fasciitis of left foot M72.2 [facility] [address] [facility] [id number], [place] [address] 2546 Jul, [facility] [address] [place] [id number] Jul, Plantar fasciitis of left foot M72.2 and Chronic daily headache R51 [facility] [address] [id number] [id number] Jul, [facility] [address] [id number] [address] Jun, [facility] [address] [facility] [id number], [place] [address]- 6686 Jun, [facility] [address] [id number] [id number] Jun, [facility] [address] [id number] [id number] Jun, [facility] [id number] [place] [address] [id number] May, [facility] [address] [id number] [id number] May, [facility] [address] [facility] [id number], [place] [address]- 2546 May, Stress incontinence of urine N39.3 [facility] [address] [id number] [id number] May, [facility] [id number] May, Encounter for examination for admission to [facility] Z02.2 ; Toxoplasmosis B58.9 ; Seizures R56.9 ; Major depressive disorder, recurrent, moderate F33.1 ; Degenerative brain disorder G31.9 and Unsteady gait R26.81 [facility] [address] [id number] [place] [address]- 7437 May, [facility] [address] [id number] [place] [address]- 2817 May, Mood disorder F39 [facility] [address] [id number] [place] 3734 May, [facility] [place] [facility] [id number] [place] [address], [place] [address]- 8108 Apr, [facility] [address] [id number] [place] [address]- 2355 Mar, [facility] [place] [facility] [address] [id number] [place] [address]- 0250 Mar, [facility] [address] [facility] [id number] [place] [address]- 0414 Mar, [facility] [address] [facility] [id number] [place] [address] 13717- 1161 Mar, [facility] [address] [id number] [place] [address]- 5456 Mar, [facility] [id number], [place] [address]- 5424 Mar, Stress incontinence of urine N39.3 [facility] [address] [id number] [id number] Mar, [facility] [place] [facility] [address] [facility] [id number], [place] [address]- 0342 Feb, [facility] [place] [facility] [address] [id number] [place] [address]- 0519 Feb, [facility] [place] [facility] [address] [facility] [id number], [place] [address]- 3315 Feb, [facility] [place] [facility] [address] [facility] [id number], [place] [address]- 6120 Feb, [facility] [place] [facility] [id number], [place] [address]- 7207 Feb, [facility] [address] [facility] [id number], [place] [address]- 5708 Feb, [facility] [address] [facility] [id number], [place] [address]- 0647 Feb, [facility] [address], [place] [address]- 9786 Jan, [facility] [address] [facility] [id number], [place] [address]- 9405 Jan, [facility] [address], [place] [address]- 8842 Jan, [facility] [id number], [place] [address]- 3651 Jan, [facility] [address], [place] [address]- 1669 Jan, [facility] [address], [place] [address]- 7691 Jan, [facility] [address], [place] [address]- 2055 Jan, [facility] [id number], [place] [address]- 2801 Jan, General weakness R53.1 and Dementia with behavioral disturbance, unspecified dementia type F03.91 [facility] [id number], [place] [address]- 0103 December, [facility] [id number], [place] [address]- 3975 December, Other chronic pain G89.29 [facility] [id number], [place] [address]- 1376 December, [facility] [id number], [place] [address]- 7421 December, Unsteady gait R26.81 ; Generalized weakness R53.1 ; Unspecified mental disorder due to known physiological condition F09 and Generalized headaches R51 [facility] [id number] [place] [address] 90649- 2600 December, [facility] [id number] [place] [address] 33709- 1182 Nov, Anxiety F41.9 [place] [facility] [id number] [place] [address] 16461- 0569 Nov, Mood disorder F39 [place] [id number] [place] [address] 41184- 3565 Oct, [facility] [id number] [place] [address] 12084- 5203 Oct, Anxiety F41.9 [place] [id number] [place] [address] 72317- 1078 Oct, Other chronic pain G89.29 [facility] [id number] [place] [address] 26351- 1597 Sep, Other chronic pain G89.29 ; Pain in left knee M25.562 ; Pain in right knee M25.561 and Anxiety F41.9 [place] [address] [place] [address] 53512- 7603 Sep, MDD (major depressive disorder), recurrent episode, mild F33.0 ; Degenerative brain disorder G31.9 and Other senior living (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 Z79.899 [facility] [address] [place] [address] 79614- 1764 Sep, [place] [id number] [place] [address] 32577- 4988 Sep, [place] [address] [place] [address] 97114- 1148 Sep, Mood disorder F39 ; Pain of left leg M79.605 and Pain in right leg M79.604 [place] [address], [place] [address]- 6084 14 Sep, 2016 Seizures R56.9 [facility] [id number] [place] [address] 82450 2546 08 Sep, 2016 [facility] [id number] [place] [address] 48894- 7166 Sep, [facility] [id number] [place] [address] 27983- 6361 Sep, [facility] [id number] [place] [address] 46972- 6950 Aug, Bronchitis J40 [facility] [id number] [place] [address] 36720- 4020 Aug, Bronchitis J40 and Encounter for drug screening Z02.83 [facility] [id number] [place] [address] 61020- 7953 Aug, [facility] [address] [place] [address] 68469- 7036 Aug, Seizures R56.9 [facility] [id number] [place] [address] 63868 2546 Aug, Seizures R56.9 [facility] [id number] [place] [address] 41227- 4540 Aug, Major depressive disorder, recurrent, moderate F33.1 and Seizures R56.9 [facility] [address], [place] [address] 2546 Aug, [facility] [id number] [place] [address] 83191- 4631 Aug, [facility] [id number] [place] [address] 60635- 9286 Aug, Major depressive disorder, recurrent, moderate F33.1 and Seizures R56.9 [facility] [id number] [place] [address] 58576- 8735 Jul, Major depressive disorder, recurrent, moderate F33.1 and Degenerative brain disorder G31.9 [place] [address] [place] [address]- 9309 Jul, Seizures R56.9 [place] [address] [address] 14074- 1541 Apr, [place] [id number] [place] [address]- 4537 Apr, Major depressive disorder, recurrent, moderate F33.1 ; Anxiety F41.9 and Degenerative brain disorder G31.9 [place] [id number] [place] [address] 636447- 3310 Apr, Mood disorder F39 [place] [id number] [place] [address] 96172- 0208 Apr, Arthritis M19.90 [place] [id number] [place] [address] 88842- 3004 Mar, Arthritis M19.90 ; Degenerative brain disorder G31.9 and Nonintractable generalized idiopathic epilepsy without status epilepticus G40.309 [place] [address] [place] [address]- 7254 Feb, IMMUNIZATIONS No Known Immunizations SOCIAL HISTORY Never Assessed REASON FOR VISIT Controlled Med Refill PLAN OF CARE VITAL SIGNS MEDICATIONS Medication Instructions Dosage Frequency Start Date End Date Duration Status Clonazepam 1 MG Orally Twice a day 1/2 tab in the AM and 1 tab in the PM 12Sep, 28 days Active RESULTS No Results PROCEDURES No Known procedures INSTRUCTIONS MEDICATIONS ADMINISTERED No Known Medications MEDICAL (GENERAL) HISTORY Type Description Date Medical History Toxoplasmosis Medical History migraine Medical History dementia Medical History depression Medical History alzheimers disease Medical History epilepsy Medical History COPD Surgical History cholecystectomy Surgical History appendectomy Surgical History 27 brain surgeries including shunt, [place] Surgical History neck fusion 09/26, 09/28 Surgical History right hand surgery Hospitalization History surgeries Hospitalization History seizures 12/2015
--- OUTSIDE RECORDS SUMMARY | 2018-07-01 14:07 | XMS REPORT ---
Author Author MADELYN HAHN Organization [facility] Address [address] [place] [address] Care Team Providers Care Internet Marketing Strategist Name Role Phone MADELYN HAHN Unavailable PROBLEMS Type Condition ICD9-CM Code IYM67-ZF Code Onset Dates Condition Status SNOMED Code Problem Unspecified mental disorder due to known physiological condition F09 Active 218554046 Problem Major depressive disorder, recurrent, moderate F33.1 Active 72754293 Problem Dementia with behavioral disturbance, unspecified dementia type F03.91 Active 4002802771827 Problem Mood disorder F39 Active 44434343 Problem Other chronic pain G89.29 Active 89531880 Problem Anxiety F41.9 Active 41781296 Problem Unsteady gait R26.81 Active 79270452 Problem History of brain shunt Z98.2 Active 035587532 Problem PTSD (post-traumatic stress disorder) F43.10 Active 16381336 Problem Sleep apnea, unspecified type G47.30 Active 02811180 Problem Degenerative brain disorder G31.9 Active 78460423 Problem Depressive disorder, not elsewhere classified F32.9 Active 78915234 Problem Other chronic pain G89.29 Active 58160361 ALLERGIES Substance Reaction Event Type Date Status Morphine Sulfate itching Drug Allergy Feb, Active ENCOUNTERS Encounter Location Date Diagnosis [facility] [id number] [address] May, [facility] [id number] [address] Apr, [facility] [address] [address] Apr, History of brain shunt Z98.2 [facility] [id number] [address] Apr, PTSD (post-traumatic stress disorder) F43.10 [place] [address] [address] 07 Apr, 2018 History of brain shunt Z98.2 [place] [id number] [place] [address] 31725- 6466 04 Apr, 2018 History of brain shunt Z98.2 [facility] [address] [place] [id number] Mar, History of brain shunt Z98.2 ; Depressive disorder, not elsewhere classified F32.9 ; Degenerative brain disorder G31.9 ; Unsteady gait R26.81 ; Other chronic pain G89.29 and Daily headache R51 [place] [id number] [place] [address] 06380- 0355 Mar, PTSD (post-traumatic stress disorder) F43.10 [place] [id number] [place] [address] 41700- 6537 Mar, [place] [id number] [place] [address] 33243- 8728 Feb, PTSD (post-traumatic stress disorder) F43.10 [place] [id number] [place] [address] 64405- 7560 Feb, PTSD (post-traumatic stress disorder) F43.10 [place] [id number] [place] [address] 79504- 0884 Feb, Other chronic pain G89.29 and Pain in right knee M25.561 [place] [address] [place] [address] 74635- 8677 Feb, PTSD (post-traumatic stress disorder) F43.10 [place] [address] [place] [address] 05414- 5646 Feb, [facility] [address] [place] [id number] Jan, Dementia with behavioral disturbance, unspecified dementia type F03.91 ; Other chronic pain G89.29 and [facility] [address] [place] [address] Jan, Daily headache R51 ; History of brain shunt Z98.2 ; Plantar fasciitis of left foot M72.2 ; Pain in right knee M25.561 and Pain in left knee M25.562 [facility] [address], [place] [address] Jan, [facility] [id number] [place] [address] 57526- 4297 Jan, Pain in right knee M25.561 [facility] [address], [place] [address] 99[address] Jan, [facility] [id number] [place] [address] 76088- 4817 Jan, [facility] [address], [place] [address] 74[address] Jan, [facility] [id number] [place] [address] 33654- 8366 December, Other chronic pain G89.29 [facility] [address] [place] [address] December, Pain in left knee M25.562 ; Pain in right leg M79.604 ; Other chronic pain G89.29 ; Localized edema R60.0 and PTSD (post-traumatic stress disorder) F43.10 [facility] [address] [address] December, [facility] [address] [address] December, PTSD (post-traumatic stress disorder) F43.10 [facility] [address], [place] [address] December, [facility] [address], [place] [address] December, [facility] [id number] [address] December, Depressive disorder, not elsewhere classified F32.9 and Cognitive change R41.89 [facility] [id number] [place] [address] 71193- 6393 Nov, Major depressive disorder, recurrent, moderate F33.1 [facility] [id number] [place] [address] 60939- 5464 Nov, [facility] [id number] [place] [address] 86748- 5522 Nov, [facility] [id number] [place] [address] 51925- 0313 Nov, [facility] [id number] [place] [address] 36531- 1168 Nov, [facility] [id number] [place] [address] 63190- 0956 Nov, Mood disorder F39 [facility] [id number] [place] [address] 25797- 7320 Nov, Depressive disorder, not elsewhere classified F32.9 and Cognitive change R41.89 [facility] [address] [place] [address] 41089- 0871 Nov, [facility] [address] [place] [address] 08026- 1099 Nov, [facility] [address] [place] [address] Oct, Tear of skin of plantar aspect of right foot, initial encounter S91.311A [facility] [id number] [place] [address] 51961- 4954 Oct, [facility] [id number] [place] [address] 69527- 0604 14 Oct, 2017 [facility] [id number] [place] [id number] Oct, [facility] [id number] [address] Oct, [facility] [address] [id number] [id number] Sep, [facility] [id number] [id number] Sep, [facility] [id number] [address] Sep, [facility] [id number] [address] Sep, [facility] [address] [address] Sep, [facility] [address], [place] [address] 2726 Sep, Other chronic pain G89.29 and Pain in left knee M25.562 [facility] [address], [place] [address] Sep, [facility] [address] [address] Sep, Plantar fasciitis of left foot M72.2 and Pain in right knee M25.561 [facility] [id number] [address] Aug, [facility] [id number], [place] [address] 6967 Aug, [facility] [id number], [place] [address] 20[address] Aug, [facility] [id number] [address] Aug, Chronic daily headache R51 [facility] [id number], [place] [address] Aug, [facility] [address] [place] [id number] Aug, Edema, unspecified type R60.9 ; Weight gain R63.5 and Sleep apnea, unspecified type G47.[address] [facility] [address] [id number] Jul, Acute pain of left knee M25.562 and Plantar fasciitis of left foot M72.2 [facility] [id number] [address] Jul, [facility] [address] [id number] Jul, Plantar fasciitis of left foot M72.2 and Chronic daily headache R51 [facility] [id number] [address] Jul, [facility] [id number] [address] Jun, [facility] [id number], [place] [address] 2546 Jun, [facility] [id number] [id number] Jun, [facility] [id number] [id number] Jun, [facility] [id number] [id number] May, [facility] [id number] [id number] May, [facility] [id number] [address] 2546 May, Stress incontinence of urine N39.3 [facility] [address] [id number] [address] May, [facility] [id number] May, Encounter for examination for admission to senior living Z02.2 ; Toxoplasmosis B58.9 ; Seizures R56.9 ; Major depressive disorder, recurrent, moderate F33.1 ; Degenerative brain disorder G31.9 and Unsteady gait R26.81 [facility] [id number], [place] [address] May, [facility] [id number] [place] [address] 60349- 3733 May, Mood disorder F39 [facility] [id number] [place] [address] 72706- 1408 May, [facility] [id number] [place] [address] 27285- 1441 Apr, [facility] [id number] [place] [address] 82841- 7543 Mar, [facility] [id number] [place] [address] 74584- 1884 Mar, [facility] [id number] [place] [address] 57601- 1696 Mar, [facility] [id number] [place] [address] 17387- 3306 Mar, [facility] [id number] [place] [address] 48998- 9300 Mar, [facility] [id number] [place] [address] 57947- 9774 Mar, Stress incontinence of urine N39.3 [facility] [id number] [place] [address] [id number] Mar, [facility] [address], [place] [address] 8448 Feb, [facility] [id number] [place] [address] 72996- 9532 Feb, [facility] [id number] [place] [address] 86701- 5241 Feb, [facility] [address] [place] [address] 53884- 1821 Feb, [facility] [address] [id number] [place] [address]- 6869 Feb, [facility] [address] [facility] [id number] [place] [address]- 3773 Feb, [facility] [address] [facility] [id number] [place] [address]- 2058 Feb, [facility] [address] [facility] [id number] [place] [address]- 1515 Jan, [facility] [address] [id number] [place] [address]- 6463 Jan, [facility] [address] [facility] [id number] [place] [address]- 3832 Jan, [facility] [address] [facility] [id number] [place] [address]- 9658 Jan, [facility] [address] [facility] [id number] [place] [address]- 1519 Jan, [facility] [address] [facility] [id number] [place] [address]- 7054 Jan, [facility] [address] [facility] [id number] [place] [address]- 8889 Jan, [facility] [address] [facility] [id number] [place] [address]- 5778 Jan, General weakness R53.1 and Dementia with behavioral disturbance, unspecified dementia type F03.91 [facility] [address] [facility] [id number] [place] [address]- 1744 December, [facility] [address] [facility] [id number] [address] 9631 December, Other chronic pain G89.29 [facility] [address] [facility] [id number] [place] [address]- 5597 December, [facility] [address] [facility] [id number] [place] [address]- 5399 December, Unsteady gait R26.81 ; Generalized weakness R53.1 ; Unspecified mental disorder due to known physiological condition F09 and Generalized headaches R51 [facility] [id number] [place] [address] 08021- 6195 December, [facility] [id number] [place] [address] 85922- 0751 Nov, Anxiety F41.9 [facility] [id number] [place] [address] 94793- 5126 Nov, Mood disorder F39 [facility] [id number] [place] [address] 61948- 9336 Oct, [facility] [id number] [place] [address] 36063- 2743 Oct, Anxiety F41.9 [place] [id number] [place] [address] 18207- 8516 Oct, Other chronic pain G89.29 [facility] [id number] [place] [address] 10102- 1485 Sep, Other chronic pain G89.29 ; Pain in left knee M25.562 ; Pain in right knee M25.561 and Anxiety F41.9 [facility] [address] [place] [address] 09402- 6419 Sep, MDD (major depressive disorder), recurrent episode, mild F33.0 ; Degenerative brain disorder G31.9 and Other group home (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 Z79.899 [facility] [address] [place] [address] 01811- 6151 Sep, [facility] [id number] [place] [address] 08156- 3918 Sep, [facility] [address] [place] [address] 43498- 5330 Sep, Mood disorder F39 ; Pain of left leg M79.605 and Pain in right leg M79.604 [facility] [address], [place] [address]- 8916 14 Sep, 2016 Seizures R56.9 [facility] [id number] [place] [address] 79168 2546 08 Sep, 2016 [facility] [id number] [place] [address] 44756 2546 Sep, [facility] [id number] [place] [address] 74251 2546 Sep, [facility] [id number] [place] [address] 06670- 3976 Aug, Bronchitis J40 [facility] [id number] [place] [address] 86369 2546 Aug, Bronchitis J40 and Encounter for drug screening Z02.83 [facility] [id number] [place] [address] 49608 2548 Aug, [facility] [address] [place] [address] 62072 2544 Aug, Seizures R56.9 [facility] [id number] [place] [address] 97938 2546 Aug, Seizures R56.9 [facility] [address] [place] [address] 54618 2546 Aug, Major depressive disorder, recurrent, moderate F33.1 and Seizures R56.9 [facility] [address], [place] [address] 2546 Aug, [facility] [id number] [place] [address] 35161 2546 Aug, [facility] [address] [place] [address] 78168 2546 Aug, Major depressive disorder, recurrent, moderate F33.1 and Seizures R56.9 [facility] [address] [address]- 5878 Jul, Major depressive disorder, recurrent, moderate F33.1 and Degenerative brain disorder G31.9 [place] [address], [place] [address]- 8127 Jul, Seizures R56.9 [place] [id number] [place] [address] 45897- 6588 Apr, [place] [id number] [place] [address] 70292- 7272 Apr, Major depressive disorder, recurrent, moderate F33.1 ; Anxiety F41.9 and Degenerative brain disorder G31.9 [place] [address] [place] [address] 11570- 1240 Apr, Mood disorder F39 [place] [id number] [place] [address] 92512- 0478 Apr, Arthritis M19.90 [place] [id number] [place] [address] 00884- 4975 Mar, Arthritis M19.90 ; Degenerative brain disorder G31.9 and Nonintractable generalized idiopathic epilepsy without status epilepticus G40.309 [place] [address] [address]- 8508 Feb, IMMUNIZATIONS No Known Immunizations SOCIAL HISTORY Never Assessed REASON FOR VISIT rfaa/niki Diaz MA PLAN OF CARE Activity Details Follow Up 6 Weeks Reason: VITAL SIGNS Height 65 in 2018-03-20 Weight 187.8 lbs 2018-03-20 Heart Rate 92 bpm 2018-03-20 Respiratory Rate 20 2018-03-20 Oximetry 94 % 2018-03-20 BMI 31.25 kg/m2 2018-03-20 Blood pressure systolic 122 mmHg 2018-03-20 Blood pressure diastolic 70 mmHg 2018-03-20 MEDICATIONS Medication Instructions Dosage Frequency Start Date End Date Duration Status Furosemide 40 mg Orally Once a day in AM 1 tablet Sep, 30 day (s) Active Memantine HCl 5 MG TAKE 1 TABLET BY MOUTH ONCE DAILY 30 Active Divalproex Sodium 500 MG TAKE 3 TABLETS BY MOUTH TWICE DAILY 30 Not-Taking Zyrtec Allergy 10 mg Orally Once a day 1 tablet as needed 24h May, 30 day(s) Active Ditropan XL 5 mg Orally Once a day 1 tablet 24h Mar, 30 day(s) Active Levetiracetam 500 MG Orally Twice a day 1 tablet 12h Active Clonazepam 1 MG Orally Twice a day 1/2 tab in the AM and 1 tab in the PM 12h 28 Sep, 2016 Active Potassium Chloride Noni ER 20 meq Orally Once a day 1 tablet with food 24h December, Apr, 30 day(s) Active Depakote 500 MG Active ProAir HFA 108 (90 Base) MCG/ACT Inhalation every 4 hrs 2 puffs as needed for cough or short of breath 4h 30 Active Clonidine HCl 0.1 MG Orally Twice a day 1 tablet 12h Active Amitriptyline HCl 50 MG Orally Once a day at bedtime 1 tablet 30 days Active Advair Diskus 500-50 MCG/DOSE Inhalation Twice a day 1 puff 12h Not-Taking Keppra 500 MG Orally 2 times a day 3 capsules 12h Not-Taking Ondansetron 4 MG Orally every 8 hrs PRN 1 tablet on the tongue and allow to dissolve Aug, Active Colace 100 mg Orally twice a day 1 capsule 12h Active Neurontin 300 MG Orally 3 times a day 1 capsule 8h 10 Aug, 2017 Active Milk of Magnesia 1200 MG/15ML Orally Once a day constipation 30 ml as needed Not-Taking Effexor XR 37.5 MG Orally Once a day (titration) 3 caps daily for 2 weeks then 2 caps daily for 2 weeks then 1 cap daily for 2 weeks then discontinue December, Feb, Active Percocet 7.5-325 MG Orally every 6 hrs 1 tablet as needed 6h December, 28 days Active Naproxen 500 MG Orally every 12 hrs 1 tablet as needed 12h 30 Active Omeprazole 20 mg Orally Once a day 1 capsules 24h Active Biofreeze 4 % Externally Once a day at bedtime 1 applicationt both ankles Active RESULTS No Results PROCEDURES No Known procedures INSTRUCTIONS MEDICATIONS ADMINISTERED No Known Medications MEDICAL (GENERAL) HISTORY Type Description Date Medical History Toxoplasmosis Medical History migraine Medical History dementia Medical History depression Medical History alzheimers disease Medical History epilepsy Medical History COPD Surgical History cholecystectomy Surgical History appendectomy Surgical History 27 brain surgeries including shunt, [place] Surgical History neck fusion 09/26, 09/28 Surgical History right hand surgery Hospitalization History surgeries Hospitalization History seizures 12/2015
--- OUTSIDE RECORDS SUMMARY | 2018-07-01 14:08 | XMS REPORT ---
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 Name Role Phone ESTEPHANIA IVAN Unavailable PROBLEMS Type Condition ICD9-CM Code RPX04-FB Code Onset Dates Condition Status SNOMED Code Problem Unspecified mental disorder due to known physiological condition F09 Active 689393163 Problem Major depressive disorder, recurrent, moderate F33.1 Active 83796911 Problem Dementia with behavioral disturbance, unspecified dementia type F03.91 Active 3753019688191 Problem Mood disorder F39 Active 64758738 Problem Other chronic pain G89.29 Active 25420300 Problem Anxiety F41.9 Active 16802953 Problem Unsteady gait R26.81 Active 37193642 Problem History of brain shunt Z98.2 Active 064884413 Problem PTSD (post-traumatic stress disorder) F43.10 Active 05086787 Problem Sleep apnea, unspecified type G47.30 Active 43547348 Problem Degenerative brain disorder G31.9 Active 98430900 Problem Depressive disorder, not elsewhere classified F32.9 Active 88837197 Problem Other chronic pain G89.29 Active 99984759 ALLERGIES No Information ENCOUNTERS Encounter Location Date Diagnosis [facility] [id number] [place] [address] 96854- 9745 Apr, [facility] [id number] [place] [address] 51810- 7126 Feb, PTSD (post-traumatic stress disorder) F43.10 [facility] [id number] [place] [address] 97005- 7835 Feb, PTSD (post-traumatic stress disorder) F43.10 [facility] [id number] [address] Feb, Other chronic pain G89.29 and Pain in right knee M25.561 [facility] [address] [address] 2546 Feb, PTSD (post-traumatic stress disorder) F43.10 [facility] [address] [address] 2546 Feb, [facility] [address] [place] [id number] Jan, Dementia with behavioral disturbance, unspecified dementia type F03.91 ; Other chronic pain G89.29 and Plantar fasciitis M72.2 [facility] [address] [place] [id number] Jan, Daily headache R51 ; History of brain shunt Z98.2 ; Plantar fasciitis of left foot M72.2 ; Pain in right knee M25.561 and Pain in left knee M25.562 [facility] [address] [place] [address] 92726- 0876 14 Jan, 2018 [facility] [id number] [place] [address] 87623 2547 Jan, Pain in right knee M25.561 [facility] [id number] [place] [address] 58770 2546 Jan, [facility] [id number] [place] [address] 02176 2540 Jan, [facility] [id number] [place] [address] 57184 2546 Jan, [facility] [id number] [place] [address] 19259 2546 December, Other chronic pain G89.[address] [facility] [address] [id number] December, Pain in left knee M25.562 ; Pain in right leg M79.604 ; Other chronic pain G89.29 ; Localized edema R60.0 and PTSD (post-traumatic stress disorder) F43.10 [facility] [id number] [address] 0[address] December, [facility] [id number] [place] [address] 45310- 8913 December, PTSD (post-traumatic stress disorder) F43.10 [facility] [id number] [address] 0601 December, [facility] [id number] [place] [address] 43771- 0595 December, [facility] [id number] [place] [address] 41024- 1142 December, Depressive disorder, not elsewhere classified F32.9 and Cognitive change R41.89 [facility] [id number] [place] [address] 79621- 6674 Nov, Major depressive disorder, recurrent, moderate F33.1 [facility] [id number] [place] [address] 44825- 1615 Nov, [facility] [id number] [place] [address] 71882- 7610 Nov, [facility] [id number] [place] [address] 27113- 1403 Nov, [facility] [id number] [place] [address] 62750- 4135 Nov, [facility] [address] [place] [address] 88183- 7460 Nov, Mood disorder F39 [facility] [address] [place] [address] 34506- 5083 Nov, Depressive disorder, not elsewhere classified F32.9 and Cognitive change R41.89 [facility] [address] [address] 2639 Nov, [facility] [address] [place] [address] 40553- 2037 Nov, 2018 [facility] [address] [place] [id number] Oct, Tear of skin of plantar aspect of right foot, initial encounter S91.311A [facility] [address] [address] 7[address] Oct, [facility] [id number], [place] [address] 0635 Oct, [facility] [id number] [place] [address] [id number] Oct, [facility] [id number] [place] [address] [id number] Oct, [facility] [id number] [place] [address] [id number] Sep, [facility] [id number] [place] [address] [id number] Sep, [facility] [id number] [place] [address] [id number] Sep, [facility] [id number] [place] [address] [id number] Sep, [facility] [address] [address] Sep, [facility] [address] [address] Sep, Other chronic pain G89.29 and Pain in left knee M25.562 [facility] [id number], [place] [address]- 0746 Sep, [facility] [address] [place] [id number] Sep, Plantar fasciitis of left foot M72.2 and Pain in right knee M25.561 [facility] [address] [id number] [id number] Aug, [facility] [address], [place] [address] 1210 Aug, [facility] [address] [facility] [id number], [place] [address]- 1146 Aug, [facility] [address] [facility] [id number], [place] [address] 8486 Aug, Chronic daily headache R51 [facility] [address] [facility] [id number], [place] [address] 5[address] Aug, [facility] [address] [place] [id number] Aug, Edema, unspecified type R60.9 ; Weight gain R63.5 and Sleep apnea, unspecified type G47.[address] [facility] [address] [id number] Jul, Acute pain of left knee M25.562 and Plantar fasciitis of left foot M72.2 [facility] [id number], [place] [address] 5396 Jul, [facility] [address] [place] [id number] Jul, Plantar fasciitis of left foot M72.2 and Chronic daily headache R51 [facility] [address] [id number] [id number] Jul, [facility] [address] [id number] [id number] Jun, [facility] [address] [facility] [id number], [place] [address] 2546 Jun, [facility] [address] [id number] [id number] Jun, [facility] [address] [id number] [id number] Jun, [facility] [address] [id number] [id number] May, [facility] [address] [id number] [id number] May, [facility] [address], [place] [address]- 1724 May, Stress incontinence of urine N39.3 [facility] [id number] [place] [id number] May, [facility] [address] [id number] May, Encounter for examination for admission to halfway Z02.2 ; Toxoplasmosis B58.9 ; Seizures R56.9 ; Major depressive disorder, recurrent, moderate F33.1 ; Degenerative brain disorder G31.9 and Unsteady gait R26.81 [facility] [id number] [place] [address] 79162- 7436 May, [facility] [id number] [place] [address] 34670- 0137 May, Mood disorder F39 [facility] [id number] [place] [address] 64804- 5770 May, [facility] [id number] [place] [address] 35073- 6029 Apr, [facility] [id number] [place] [address] 82431- 6886 Mar, [facility] [id number] [place] [address] 08842- 0975 Mar, [facility] [id number] [place] [address] 58123- 7170 Mar, [facility] [id number] [place] [address] 97669- 1268 Mar, [facility] [id number] [place] [address] 71054- 6354 Mar, [facility] [address], [place] [address]- 0156 Mar, Stress incontinence of urine N39.3 [facility] [id number] [place] [address] [id number] Mar, [facility] [place] [facility] [address] [id number] [place] [address]- 5729 Feb, [facility] [place] [facility] [address] [id number] [place] [address]- 1172 Feb, [facility] [place] [facility] [address] [facility] [id number] [place] [address]- 5401 Feb, [facility] [place] [facility] [address] [id number] [place] [address]- 0231 Feb, [facility] [place] [facility] [address] [id number] [place] [address]- 1380 Feb, [facility] [place] [facility] [address] [facility] [id number] [place] [address]- 0722 Feb, [facility] [place] [facility] [address] [facility] [id number] [place] [address]- 3511 Feb, [facility] [place] [facility] [address] [facility] [id number] [place] [address]- 7560 Jan, [facility] [place] [facility] [address] [facility] [id number] [place] [address]- 3155 Jan, [facility] [place] [facility] [address] [facility] [id number] [place] [address]- 8137 Jan, [facility] [place] [facility] [address] [facility] [id number] [place] [address]- 1432 Jan, [facility] [place] [facility] [address] [facility] [id number] [place] [address]- 3372 Jan, [facility] [place] [facility] [address] [facility] [id number] [place] [address]- 1164 Jan, [facility] [place] [facility] [address] [facility] [id number] [place] 4308 Jan, [facility] [place] [facility] [address] [facility] [id number] [place] [address]140 Jan, General weakness R53.1 and Dementia with behavioral disturbance, unspecified dementia type F03.91 [facility] [id number] [address]- 1232 December, [facility] [id number] [place] [address] 1154 December, Other chronic pain G89.29 [facility] [id number] [place] [address] 59289- 3888 December, [facility] [id number] [place] [address] 20190- 7455 December, Unsteady gait R26.81 ; Generalized weakness R53.1 ; Unspecified mental disorder due to known physiological condition F09 and Generalized headaches R51 [facility] [id number] [place] [address] 44190- 2131 December, [facility] [id number] [place] [address] 96316- 7457 Nov, Anxiety F41.9 [facility] [id number] [place] [address] 39477- 7165 Nov, Mood disorder F39 [facility] [id number] [place] [address] 11347- 4743 Oct, [facility] [id number] [place] [address] 97329- 9335 Oct, Anxiety F41.9 [facility] [id number] [place] [address] 88458- 4904 Oct, Other chronic pain G89.29 [facility] [id number] [place] [address] 62697- 7189 Sep, Other chronic pain G89.29 ; Pain in left knee M25.562 ; Pain in right knee M25.561 and Anxiety F41.9 [facility] [address], [place] [address]- 7722 Sep, MDD (major depressive disorder), recurrent episode, mild F33.0 ; Degenerative brain disorder G31.9 and Other manager long term care (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 Z79.899 [facility] [id number] [place] [address] 88186- 7766 Sep, [facility] [id number] [place] [address] 32417- 8856 Sep, [facility] [address] 26681- 3395 Sep, Mood disorder F39 ; Pain of left leg M79.605 and Pain in right leg M79.604 [facility] [address] 07524- 0946 Sep, Seizures R56.9 [facility] [id number] [place] [address] 93325- 8355 Sep, [facility] [address] 22739- 4187 Sep, [facility] [id number] [place] [address] 48879- 0344 Sep, [facility] [id number] [place] [address] 43073- 2203 Aug, Bronchitis J40 [facility] [id number] [place] [address] 61528- 8107 Aug, Bronchitis J40 and Encounter for drug screening Z02.83 [facility] [id number] [place] [address] 51767- 6647 Aug, [facility] [id number] [place] [address] 63411- 2660 Aug, Seizures R56.9 [facility] [id number] [place] [address] 74131- 2546 Aug, Seizures R56.9 [facility] [address] 874602- 0198 Aug, Major depressive disorder, recurrent, moderate F33.1 and Seizures R56.9 [facility] [id number] [place] [address] 44373- 3412 Aug, [facility] [id number] [place] [address] 21351- 3552 Aug, [facility] [id number] [place] [address] 21994- 4716 Aug, Major depressive disorder, recurrent, moderate F33.1 and Seizures R56.9 [facility] [id number] [place] [address] 86456- 1482 Jul, Major depressive disorder, recurrent, moderate F33.1 and Degenerative brain disorder G31.9 [facility] [id number] [place] [address] 53222- 3456 Jul, Seizures R56.9 [place] [id number] [place] [address] 19151- 5222 Apr, [facility] [id number] [place] [address] 15830- 3715 Apr, Major depressive disorder, recurrent, moderate F33.1 ; Anxiety F41.9 and Degenerative brain disorder G31.9 [place] [id number] [place] [address] 81331- 6351 Apr, Mood disorder F39 [place] [facility] [id number] [place] [address] 78456- 2850 Apr, Arthritis M19.90 [facility] [address] [place] [address] 08687- 2496 Mar, Arthritis M19.90 ; Degenerative brain disorder G31.9 and Nonintractable generalized idiopathic epilepsy without status epilepticus G40.309 [place] [address] [place] [address] 05277- 5465 Feb, IMMUNIZATIONS No Known Immunizations SOCIAL HISTORY Never Assessed REASON FOR VISIT Controlled Med Refill PLAN OF CARE VITAL SIGNS MEDICATIONS Medication Instructions Dosage Frequency Start Date End Date Duration Status Clonazepam 1 MG Orally Twice a day 1/2 tab in the AM and 1 tab in the PM 12h 28 Sep, 2016 28 days Active RESULTS No Results PROCEDURES No Known procedures INSTRUCTIONS MEDICATIONS ADMINISTERED No Known Medications MEDICAL (GENERAL) HISTORY Type Description Date Medical History Toxoplasmosis Medical History migraine Medical History dementia Medical History depression Medical History alzheimers disease Medical History epilepsy Medical History COPD Surgical History cholecystectomy Surgical History appendectomy Surgical History 27 brain surgeries including shunt, [place] Surgical History neck fusion 09/26, 09/28 Surgical History right hand surgery Hospitalization History surgeries Hospitalization History seizures 12/2015
--- OUTSIDE RECORDS SUMMARY | 2018-07-01 14:08 | XMS REPORT ---
Author Author CYNDI LEWIS Organization [facility] Address [address] [place] [address] Care Team Providers Care Hop Strainer Name Role Phone CYNDI LEWIS Unavailable PROBLEMS Type Condition ICD9-CM Code TKE81-LH Code Onset Dates Condition Status SNOMED Code Problem Unspecified mental disorder due to known physiological condition F09 Active 814163163 Problem Major depressive disorder, recurrent, moderate F33.1 Active 31686052 Problem Dementia with behavioral disturbance, unspecified dementia type F03.91 Active 6824842636124 Problem Mood disorder F39 Active 54604381 Problem Other chronic pain G89.29 Active 75616048 Problem Anxiety F41.9 Active 56999521 Problem Unsteady gait R26.81 Active 53412739 Problem History of brain shunt Z98.2 Active 227274933 Problem PTSD (post-traumatic stress disorder) F43.10 Active 37384008 Problem Sleep apnea, unspecified type G47.30 Active 30419866 Problem Degenerative brain disorder G31.9 Active 67044938 Problem Depressive disorder, not elsewhere classified F32.9 Active 31351426 Problem Other chronic pain G89.29 Active 40007052 ALLERGIES No Information ENCOUNTERS Encounter Location Date Diagnosis [place] [place] [id number] [place] [address] 74442- 5162 Apr, [facility] [id number] [place] [address] 72333- 4477 Feb, PTSD (post-traumatic stress disorder) F43.10 [facility] [id number] [place] [address] 46713- 2487 Feb, PTSD (post-traumatic stress disorder) F43.10 [place] [id number] [address] 6[address] Feb, Other chronic pain G89.29 and Pain in right knee M25.561 [facility] [address] [address] 9[address] Feb, PTSD (post-traumatic stress disorder) F43.10 [facility] [id number] [place] [address] 81912- 2548 Feb, [facility] [address] [id number] Jan, Dementia with behavioral disturbance, unspecified dementia type F03.91 ; Other chronic pain G89.29 and Plantar fasciitis M72.[address] [facility] [address] [id number] Jan, Daily headache R51 ; History of brain shunt Z98.2 ; Plantar fasciitis of left foot M72.2 ; Pain in right knee M25.561 and Pain in left knee M25.562 [facility] [id number] [place] [address] 12100- 6713 14 Jan, 2018 [facility] [id number] [place] [address] 48802 2541 07 Jan, 2018 Pain in right knee M25.561 [facility] [id number] [place] [address] 13469 2549 Jan, [facility] [id number] [place] [address] 53438 2540 Jan, [facility] [address] [address] 2545 Jan, [facility] [id number] [place] [address] 83813 2547 December, Other chronic pain G89.[address] [facility] [address] [id number] December, Pain in left knee M25.562 ; Pain in right leg M79.604 ; Other chronic pain G89.29 ; Localized edema R60.0 and PTSD (post-traumatic stress disorder) F43.10 [facility] [id number] [place] [address] 65480- 6227 December, [facility] [address] [address] December, PTSD (post-traumatic stress disorder) F43.10 [facility] [address] [address] 5456 December, [facility] [address] [address] 1216 December, [facility] [address] [address] 8862 December, Depressive disorder, not elsewhere classified F32.9 and Cognitive change R41.89 [facility] [address] [address] 1720 Nov, Major depressive disorder, recurrent, moderate F33.1 [facility] [address] [address] 3278 Nov, [facility] [address] [address]- 4571 Nov, [facility] [address], [place] [address]- 9586 Nov, [facility] [address], [place] [address] 1638 Nov, [facility] [address], [place] [address] 5003 Nov, Mood disorder F39 [facility] [id number] [address] 2548 Nov, Depressive disorder, not elsewhere classified F32.9 and Cognitive change R41.89 [facility] [address], [place] [address]- 9674 Nov, [facility] [id number] [address] 5939 Nov, 2018 [facility] [address] [place] [id number] Oct, Tear of skin of plantar aspect of right foot, initial encounter S91.311A [facility] [address], [place] [address] 2546 Oct, [facility] [address], [place] [address] 7296 Oct, [facility] [id number] [id number] Oct, [facility] [id number] [id number] Oct, [facility] [id number] [place] [address] [id number] Sep, [facility] [id number] [id number] Sep, [facility] [id number] [place] [address] [id number] Sep, [facility] [id number] [place] [address] [id number] Sep, [facility] [address] [address]- 9966 Sep, [facility] [address], [place] [address]- 8886 Sep, Other chronic pain G89.29 and Pain in left knee M25.562 [facility] [id number], [place] [address] 2546 Sep, [facility] [address] [place] [id number] Sep, Plantar fasciitis of left foot M72.2 and Pain in right knee M25.561 [facility] [id number] [id number] Aug, [facility] [address], [place] [address]- 7049 Aug, [facility] [address] [facility] [id number] [address]- 7298 Aug, [facility] [id number], [place] [address] 1426 Aug, Chronic daily headache R51 [facility] [id number], [place] [address] 7566 Aug, [facility] [place] [address] [place] [id number] Aug, Edema, unspecified type R60.9 ; Weight gain R63.5 and Sleep apnea, unspecified type G47.[address] [facility] [address] [id number] Jul, Acute pain of left knee M25.562 and Plantar fasciitis of left foot M72.2 [facility] [address], [place] [address] 4276 Jul, [facility] [address] [place] [id number] Jul, Plantar fasciitis of left foot M72.2 and Chronic daily headache R51 [facility] [id number] [id number] Jul, [facility] [address] [id number] [id number] Jun, [facility] [address], [place] [address] 2546 Jun, [facility] [address] [id number] [id number] Jun, [facility] [address] [id number][place] [id number] Jun, [facility] [address] [id number] [id number] May, [facility] [address] [id number][place] [id number] May, [facility] [address] [id number], [place] [address]- 8793 May, Stress incontinence of urine N39.3 [facility] [id number] [place] [address] [id number] May, [facility] [address] [place] [address] May, Encounter for examination for admission to senior care Z02.2 ; Toxoplasmosis B58.9 ; Seizures R56.9 ; Major depressive disorder, recurrent, moderate F33.1 ; Degenerative brain disorder G31.9 and Unsteady gait R26.81 [facility] [id number] [place] [address] 10022- 2660 May, [facility] [id number] [place] [address] 71139- 2483 May, Mood disorder F39 [facility] [id number] [place] [address] 81293- 5383 May, [facility] [id number] [place] [address] 98862- 2026 Apr, [facility] [id number] [place] [address] 89705- 1207 Mar, [facility] [id number] [place] [address] 42762- 3621 Mar, [facility] [id number] [place] [address] 08352- 5077 Mar, [facility] [id number] [place] [address] 77187- 9548 Mar, [facility] [id number] [place] [address] 66096- 5139 Mar, [facility] [id number] [place] [address] 97587- 4845 Mar, Stress incontinence of urine N39.3 [facility] [id number] [place] [address] [id number] Mar, [facility] [place] [facility] [address] [id number] [place] [address]- 3908 Feb, [facility] [place] [facility] [address] [id number] [place] [address]- 5149 Feb, [facility] [place] [facility] [address] [facility] [id number] [place] [address]- 3703 Feb, [facility] [place] [facility] [address] [id number] [place] [address]- 0191 Feb, [facility] [place] [facility] [address] [id number] [place] [address]- 0952 Feb, [facility] [place] [facility] [address] [id number] [place] [address]- 2970 Feb, [facility] [place] [facility] [address] [facility] [id number] [place] [address]- 0787 Feb, [facility] [place] [facility] [address] [facility] [id number] [place] [address]- 9728 Jan, [facility] [place] [facility] [address] [facility] [id number] [place] [address]- 0115 Jan, [facility] [place] [facility] [address] [facility] [id number] [place] [address]- 4988 Jan, [facility] [place] [facility] [address] [facility] [id number] [place] [address]- 6076 Jan, [facility] [place] [facility] [address] [facility] [id number], [place] [address]- 6447 Jan, [facility] [place] [facility] [address] [facility] [id number] [place] [address]- 3665 Jan, [facility] [place] [facility] [address] [facility] [id number] [place] [address]- 3534 Jan, [facility] [place] [facility] [address] [facility] [id number] [place] [address]- 8855 Jan, General weakness R53.1 and Dementia with behavioral disturbance, unspecified dementia type F03.91 [facility] [id number] [place] [address] 75028- 8234 December, [facility] [id number] [place] [address] 63822- 9816 December, Other chronic pain G89.29 [facility] [id number] [place] [address] 71499- 5097 December, [facility] [id number] [place] [address] 49128- 9342 December, Unsteady gait R26.81 ; Generalized weakness R53.1 ; Unspecified mental disorder due to known physiological condition F09 and Generalized headaches R51 [facility] [id number] [place] [address] 16134- 3360 December, [facility] [id number] [place] [address] 93168- 7998 Nov, Anxiety F41.9 [facility] [id number] [place] [address] 82225- 5984 Nov, Mood disorder F39 [facility] [id number] [place] [address] 62988- 8018 Oct, [facility] [id number] [place] [address] 43100- 8593 Oct, Anxiety F41.9 [facility] [id number] [place] [address] 53760- 5198 Oct, Other chronic pain G89.29 [facility] [address] [place] [address] 28397- 0057 Sep, Other chronic pain G89.29 ; Pain in left knee M25.562 ; Pain in right knee M25.561 and Anxiety F41.9 [facility] [address] [place] [address] 94504- 4851 Sep, MDD (major depressive disorder), recurrent episode, mild F33.0 ; Degenerative brain disorder G31.9 and 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 [facility] [id number] [place] [address] 73578- 0156 Sep, [facility] [id number] [place] [address] 18618- 0906 Sep, [facility] [id number] [place] [address] 97894- 3177 Sep, Mood disorder F39 ; Pain of left leg M79.605 and Pain in right leg M79.604 [facility] [id number] [place] [address] 67483- 2336 14 Sep, 2016 Seizures R56.9 [facility] [id number] [place] [address] 37259- 2996 Sep, [facility] [id number] [place] [address] 92613- 2795 Sep, [facility] [id number] [place] [address] 88418- 8938 Sep, [facility] [id number] [place] [address] 60507- 0111 Aug, Bronchitis J40 [facility] [id number] [place] [address] 82903- 3069 Aug, Bronchitis J40 and Encounter for drug screening Z02.83 [facility] [id number] [place] [address] 30783- 9253 Aug, [facility] [id number] [place] [address] 82910- 0824 Aug, Seizures R56.9 [facility] [id number] [place] [address] 32760- 6374 Aug, Seizures R56.9 [facility] [id number] [place] [address] 29716- 6981 Aug, Major depressive disorder, recurrent, moderate F33.1 and Seizures R56.9 [place] [address] [address]- 1336 Aug, [place] [id number] [place] [address] 86264- 5628 Aug, [place] [id number] [place] [address] 04954- 3682 Aug, Major depressive disorder, recurrent, moderate F33.1 and Seizures R56.9 [place] [id number] [place] [address] 31554- 8198 Jul, Major depressive disorder, recurrent, moderate F33.1 and Degenerative brain disorder G31.9 [place] [id number] [place] [address] 79646- 8964 Jul, Seizures R56.9 [place] [id number] [place] [address] 57029- 7519 Apr, [place] [id number] [place] [address] 24904- 6962 Apr, Major depressive disorder, recurrent, moderate F33.1 ; Anxiety F41.9 and Degenerative brain disorder G31.9 [place] [id number] [place] [address] 04241- 5435 Apr, Mood disorder F39 [place] [id number] [place] [address] 13579- 7012 Apr, Arthritis M19.90 [place] [id number] [place] [address] 00789- 3233 Mar, Arthritis M19.90 ; Degenerative brain disorder G31.9 and Nonintractable generalized idiopathic epilepsy without status epilepticus G40.309 [place] [address] [address]- 7984 Feb, IMMUNIZATIONS No Known Immunizations SOCIAL HISTORY Never Assessed REASON FOR VISIT BH f/u, Depression. PLAN OF CARE Activity Details Follow Up Next available, prn Reason: VITAL SIGNS MEDICATIONS Unknown Medications RESULTS No Results PROCEDURES Procedure Date Ordered Result Body Site Psychotherapy, patient &/family, 30 minutes, established patient December 26, 2017 INSTRUCTIONS MEDICATIONS ADMINISTERED No Known Medications MEDICAL (GENERAL) HISTORY Type Description Date Medical History Toxoplasmosis Medical History migraine Medical History dementia Medical History depression Medical History alzheimers disease Medical History epilepsy Medical History COPD Surgical History cholecystectomy Surgical History appendectomy Surgical History 27 brain surgeries including shunt, [place] Surgical History neck fusion 09/26, 09/28 Surgical History right hand surgery Hospitalization History surgeries Hospitalization History seizures 12/2015
--- OUTSIDE RECORDS SUMMARY | 2018-07-01 14:08 | XMS REPORT ---
Author Author JASMEET WINSLOW Organization [facility] Address [address] [place] [address] Care Team Providers Care Medical Practice Administrator Name Role Phone JASMEET WINSLOW Unavailable PROBLEMS Type Condition ICD9-CM Code BOW05-RH Code Onset Dates Condition Status SNOMED Code Problem Unspecified mental disorder due to known physiological condition F09 Active 736628796 Problem Major depressive disorder, recurrent, moderate F33.1 Active 68357734 Problem Dementia with behavioral disturbance, unspecified dementia type F03.91 Active 4898645117502 Problem Mood disorder F39 Active 35097851 Problem Other chronic pain G89.29 Active 86918275 Problem Anxiety F41.9 Active 37956891 Problem Unsteady gait R26.81 Active 20764623 Problem History of brain shunt Z98.2 Active 216537957 Problem PTSD (post-traumatic stress disorder) F43.10 Active 50900044 Problem Sleep apnea, unspecified type G47.30 Active 18930836 Problem Degenerative brain disorder G31.9 Active 67041104 Problem Depressive disorder, not elsewhere classified F32.9 Active 91234834 Problem Other chronic pain G89.29 Active 82320962 ALLERGIES No Information ENCOUNTERS Encounter Location Date Diagnosis [place] [id number] [address] Apr, [facility] [id number] [address] 07 Apr, 2018 History of brain shunt Z98.2 [place] [id number] [place] [address] 75683- 8208 04 Apr, 2018 [facility] [address] [place] [id number] Mar, History of brain shunt Z98.2 ; Depressive disorder, not elsewhere classified F32.9 ; Degenerative brain disorder G31.9 ; Unsteady gait R26.81 ; Other chronic pain G89.29 and Daily headache R51 [place] [id number] [place] [address] 68524- 8205 Mar, PTSD (post-traumatic stress disorder) F43.10 [place] [address] [address] Mar, [facility] [id number] [place] [address] 44417- 1262 Feb, PTSD (post-traumatic stress disorder) F43.10 [place] [id number] [place] [address] 07042- 4148 Feb, PTSD (post-traumatic stress disorder) F43.10 [place] [id number] [place] [address] 21247- 6005 Feb, Other chronic pain G89.29 and Pain in right knee M25.561 [place] [id number] [place] [address] 18304- 0360 Feb, PTSD (post-traumatic stress disorder) F43.10 [place] [id number] [place] [address] 16613- 8469 Feb, [facility] [address] [id number] Jan, Dementia with behavioral disturbance, unspecified dementia type F03.91 ; Other chronic pain G89.29 and Plantar fasciitis M72.[address] [facility] [address] [id number] Jan, Daily headache R51 ; History of brain shunt Z98.2 ; Plantar fasciitis of left foot M72.2 ; Pain in right knee M25.561 and Pain in left knee M25.562 [facility] [id number] [place] [address] 46007- 9959 Jan, [place] [id number] [place] [address] 85520- 0465 Jan, Pain in right knee M25.561 [facility] [address], [place] [address] Jan, [facility] [id number] [place] [address] 62936- 6094 Jan, [facility] [id number] [place] [address] 47272- 2302 Jan, [facility] [id number] [place] [address] 21689- 0865 December, Other chronic pain G89.29 [place] [address] [place] [id number] December, Pain in left knee M25.562 ; Pain in right leg M79.604 ; Other chronic pain G89.29 ; Localized edema R60.0 and PTSD (post-traumatic stress disorder) F43.10 [facility] [id number] [place] [address] 70675- 7472 December, [facility] [id number] [place] [address] 87414- 1644 December, PTSD (post-traumatic stress disorder) F43.10 [facility] [id number] [place] [address] 85778- 2280 December, [facility] [address] [address] 33[address] December, [facility] [id number] [place] [address] 30669- 0352 December, Depressive disorder, not elsewhere classified F32.9 and Cognitive change R41.89 [facility] [id number] [place] [address] 04374- 1736 Nov, Major depressive disorder, recurrent, moderate F33.1 [facility] [address] [address] 8[address] Nov, [facility] [id number] [place] [address] 45950- 9012 Nov, [facility] [id number] [address] 6[address] Nov, [facility] [address] [address] Nov, [facility] [address], [place] [address] 2880 Nov, Mood disorder F39 [facility] [id number] [place] [address] 87903- 6883 Nov, Depressive disorder, not elsewhere classified F32.9 and Cognitive change R41.89 [facility] [address], [place] [address] 4098 Nov, [facility] [address], [place] [address] 97[address] Nov, [facility] [address] [id number] Oct, Tear of skin of plantar aspect of right foot, initial encounter S91.311A [facility] [address], [place] [address] 48[address] Oct, [facility] [address], [place] [address] 6[address] Oct, [facility] [id number] [id number] Oct, [facility] [id number] [address] Oct, [facility] [id number] [id number] Sep, [facility] [id number] [id number] 14 Sep, 2017 [facility] [id number][place] [id number] 13 Sep, 2017 [facility] [id number] [place] [id number] Sep, [facility] [id number] [place] [address] 19767- 4756 Sep, [facility] [id number] [place] [address] 81155- 2926 Sep, Other chronic pain G89.29 and Pain in left knee M25.562 [facility] [id number] [place] [address] 99726- 8056 Sep, [facility] [address] [id number] Sep, Plantar fasciitis of left foot M72.2 and Pain in right knee M25.561 [facility] [id number] [place] [address] [id number] Aug, [facility] [id number] [place] [address] 08825- 1248 Aug, [facility] [id number] [place] [address] [id number]- 0936 Aug, [facility] [id number] [place] [address] 32018- 9686 Aug, Chronic daily headache R51 [facility] [id number] [place] [address] [phone]- 6045 Aug, [facility] [address] [id number] Aug, Edema, unspecified type R60.9 ; Weight gain R63.5 and Sleep apnea, unspecified type G47.30 [facility] [address] [address] Jul, Acute pain of left knee M25.562 and Plantar fasciitis of left foot M72.2 [facility] [id number] [place] [address] 90784- 2546 Jul, [facility] [address] [id number] Jul, Plantar fasciitis of left foot M72.2 and Chronic daily headache R51 [facility] [id number][place] [id number] Jul, [facility] [id number][place] [id number] Jun, [facility] [address], [place] [address] 2546 Jun, [facility] [id number] [id number] Jun, [facility] [id number] [id number] Jun, [facility] [id number] [place] [address] [id number] May, [facility] [id number] [id number] May, [facility] [address], [place] [address]- 0696 May, Stress incontinence of urine N39.3 [facility] [id number] [address] May, [facility] [place] [address] [id number] May, Encounter for examination for admission to residential Z02.2 ; Toxoplasmosis B58.9 ; Seizures R56.9 ; Major depressive disorder, recurrent, moderate F33.1 ; Degenerative brain disorder G31.9 and Unsteady gait R26.81 [facility] [id number] [address] May, [facility] [address] May, Mood disorder F39 [facility] [id number], [place] [address] 4333 May, [facility] [address], [place] [address]- 1712 Apr, [facility] [place] [facility] [address] [id number] [place] [address]- 6604 Mar, [facility] [place] [facility] [id number] [place] [address], [place] [address]- 9941 Mar, [facility] [place] [facility] [id number] [place] [address]- 2840 Mar, [facility] [place] [facility] [id number] [place] [address], [place] [address]- 5588 Mar, [facility] [place] [facility] [address] [id number] [place] [address]- 5836 Mar, [facility] [place] [facility] [id number] [place] [address], [place] [address]- 8744 Mar, Stress incontinence of urine N39.3 [facility] [id number] [place] [address] [id number] Mar, [facility] [place] [facility] [id number] [place] [address]- 4987 Feb, [facility] [place] [facility] [id number] [place] [address], [place] [address]- 3448 Feb, [facility] [place] [facility] [id number] [place] [address]- 1838 Feb, [facility] [place] [facility] [address] [id number] [place] [address]- 6739 Feb, [facility] [place] [facility] [address] [facility] [id number], [place] [address]- 7308 Feb, [facility] [place] [facility] [address] [facility] [id number] [place] [address]- 1004 Feb, [facility] [place] [facility] [address] [facility] [id number] [place] [address]- 6640 Feb, [facility] [place] [facility] [id number] [place] [address]- 6905 Jan, [facility] [place] [facility] [address], [place] [address]- 6455 Jan, [facility] [address], [place] [address]- 2977 Jan, [facility] [address], [place] [address]- 0397 Jan, [facility] [id number] [place] [address] 66260- 6886 Jan, [facility] [address], [place] [address]- 4102 Jan, [facility] [id number] [place] [address] 80652- 0662 Jan, [facility] [id number] [place] [address] 92874- 2772 Jan, General weakness R53.1 and Dementia with behavioral disturbance, unspecified dementia type F03.91 [facility] [address], [place] [address]- 5640 December, [facility] [id number] [place] [address] 94557- 4716 December, Other chronic pain G89.29 [facility] [address], [place] [address]- 6111 December, [facility] [address], [place] [address]- 3165 December, Unsteady gait R26.81 ; Generalized weakness R53.1 ; Unspecified mental disorder due to known physiological condition F09 and Generalized headaches R51 [facility] [address], [place] [address]- 2883 December, [facility] [address], [place] [address]- 1324 Nov, Anxiety F41.9 [facility] [id number] [place] [address] 83649- 3863 Nov, Mood disorder F39 [facility] [id number] [place] [address] 90442- 1409 Oct, [facility] [id number] [place] [address] 88542- 9716 Oct, Anxiety F41.9 [facility] [id number] [place] [address] 53162- 1115 Oct, Other chronic pain G89.29 [facility] [id number] [place] [address] 51876- 0889 Sep, Other chronic pain G89.29 ; Pain in left knee M25.562 ; Pain in right knee M25.561 and Anxiety F41.9 [facility] [id number] [place] [address] 44496- 1537 Sep, MDD (major depressive disorder), recurrent episode, mild F33.0 ; Degenerative brain disorder G31.9 and Other mcfp (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 Z79.899 [facility] [id number] [place] [address] 95930- 4849 Sep, [facility] [id number] [place] [address] 92153- 4554 Sep, [facility] [id number] [place] [address] 75232- 3397 Sep, Mood disorder F39 ; Pain of left leg M79.605 and Pain in right leg M79.604 [facility] [id number] [place] [address] 10294- 1142 14 Sep, 2016 Seizures R56.9 [facility] [id number] [place] [address] 02374- 3011 Sep, [facility] [id number] [place] [address] 86593- 3683 Sep, [facility] [id number] [place] [address] 96901- 0984 Sep, [facility] [id number] [place] [address] 42188- 3420 Aug, Bronchitis J40 [facility] [id number] [place] [address] 67285- 5040 Aug, Bronchitis J40 and Encounter for drug screening Z02.83 [facility] [id number] [place] [address] 37910- 5378 Aug, [facility] [id number] [place] [address] 80080- 7660 Aug, Seizures R56.9 [facility] [id number] [place] [address] 87645- 5313 Aug, Seizures R56.9 [facility] [id number] [place] [address] 96819- 5265 Aug, Major depressive disorder, recurrent, moderate F33.1 and Seizures R56.9 [facility] [id number] [place] [address] 73429- 8506 Aug, [facility] [id number] [place] [address] 24243- 9121 Aug, [facility] [id number] [place] [address] 14652- 8170 Aug, Major depressive disorder, recurrent, moderate F33.1 and Seizures R56.9 [facility] [address] [place] [address] 38026- 0965 Jul, Major depressive disorder, recurrent, moderate F33.1 and Degenerative brain disorder G31.9 [facility] [id number] [place] [address] 55676- 7534 Jul, Seizures R56.9 [facility] [id number] [place] [address] 25125- 2371 Apr, [facility] [id number] [place] [address] 67065- 2290 Apr, Major depressive disorder, recurrent, moderate F33.1 ; Anxiety F41.9 and Degenerative brain disorder G31.9 [place] [address] [address]- 7602 Apr, Mood disorder F39 [place] [id number], [place] [address]- 3462 Apr, Arthritis M19.90 [place] [address] [place] [address] 01508- 1504 Mar, Arthritis M19.90 ; Degenerative brain disorder G31.9 and Nonintractable generalized idiopathic epilepsy without status epilepticus G40.309 [place] [id number] [address]- 3602 Feb, IMMUNIZATIONS No Known Immunizations SOCIAL HISTORY Never Assessed REASON FOR VISIT routine visit PLAN OF CARE Activity Details Follow Up 2 Months Reason: VITAL SIGNS MEDICATIONS Medication Instructions Dosage Frequency Start Date End Date Duration Status Furosemide 40 mg Orally Once a day in AM 1 tablet Sep, 30 day (s) Active Ditropan XL 5 mg Orally Once a day 1 tablet 24h Mar, 30 day(s) Active Percocet 7.5-325 MG Orally every 6 hrs 1 tablet as needed 6h December, 28 days Active Effexor XR 37.5 MG Orally Once a day (titration) 3 caps daily for 2 weeks then 2 caps daily for 2 weeks then 1 cap daily for 2 weeks then discontinue December, Active Zyrtec Allergy 10 mg Orally Once a day 1 tablet as needed 24h May, 30 day(s) Active Amitriptyline HCl 25 MG Orally Once a day at bedtime 1 tablet Active Clonazepam 1 MG Orally Twice a day 1/2 tab in the AM and 1 tab in the PM 12h Sep, Active Biofreeze 4 % Externally Once a day at bedtime 1 applicationt both ankles Active ProAir HFA 108 (90 Base) MCG/ACT Inhalation every 4 hrs 2 puffs as needed for cough or short of breath 4h 30 Active Ondansetron 4 MG Orally every 8 hrs PRN 1 tablet on the tongue and allow to dissolve Aug, Active Memantine HCl 5 MG TAKE 1 TABLET BY MOUTH ONCE DAILY 30 Active Potassium Chloride Noni ER 20 meq Orally Once a day 1 tablet with food 24h December, Apr, 30 day(s) Active Clonidine HCl 0.1 MG Orally Twice a day 1 tablet 12h Active Colace 100 mg Orally twice a day 1 capsule 12h Active Milk of Magnesia 1200 MG/15ML Orally Once a day constipation 30 ml as needed Active Keppra 500 MG Orally 2 times a day 3 capsules 12h Active Advair Diskus 500-50 MCG/DOSE Inhalation Twice a day 1 puff 12h Active Naproxen 500 MG Orally every 12 hrs 1 tablet as needed 12h 30 Active Neurontin 300 MG Orally 3 times a day 1 capsule 8h Aug, Active Divalproex Sodium 500 MG TAKE 3 TABLETS BY MOUTH TWICE DAILY 30 Active Omeprazole 20 mg Orally Once a day 1 capsules 24h Active RESULTS No Results PROCEDURES Procedure Date Ordered Result Body Site Minor complication (15 mins) February 14, 2018 INSTRUCTIONS MEDICATIONS ADMINISTERED No Known Medications MEDICAL (GENERAL) HISTORY Type Description Date Medical History Toxoplasmosis Medical History migraine Medical History dementia Medical History depression Medical History alzheimers disease Medical History epilepsy Medical History COPD Surgical History cholecystectomy Surgical History appendectomy Surgical History 27 brain surgeries including shunt, [place] Surgical History neck fusion 09/26, 09/28 Surgical History right hand surgery Hospitalization History surgeries Hospitalization History seizures 12/2015
--- OUTSIDE RECORDS SUMMARY | 2018-07-01 14:09 | XMS REPORT ---
Author Author ESTEPHANIA IVAN Organization [facility] Address [address] [place] [address] Care Team Providers Care Surveyor Hydrographic Name Role Phone ESTEPHANIA IVAN Unavailable PROBLEMS Type Condition ICD9-CM Code NXL46-OA Code Onset Dates Condition Status SNOMED Code Problem Unspecified mental disorder due to known physiological condition F09 Active 220393888 Problem Major depressive disorder, recurrent, moderate F33.1 Active 92633257 Problem Dementia with behavioral disturbance, unspecified dementia type F03.91 Active 9067341947696 Problem Mood disorder F39 Active 78181805 Problem Other chronic pain G89.29 Active 71151233 Problem Anxiety F41.9 Active 49450840 Problem Unsteady gait R26.81 Active 48141962 Problem History of brain shunt Z98.2 Active 322033690 Problem PTSD (post-traumatic stress disorder) F43.10 Active 48728852 Problem Sleep apnea, unspecified type G47.30 Active 45908546 Problem Degenerative brain disorder G31.9 Active 32659227 Problem Depressive disorder, not elsewhere classified F32.9 Active 28469815 Problem Other chronic pain G89.29 Active 96352801 ALLERGIES No Information ENCOUNTERS Encounter Location Date Diagnosis [facility] [address] [place] [address] 80127- 6017 Apr, [facility] [address] [place] [address] 43235- 7273 Feb, PTSD (post-traumatic stress disorder) F43.10 [facility] [address] [place] [address] 61661- 8074 Feb, PTSD (post-traumatic stress disorder) F43.10 [facility] [id number] [address] 97[address] Feb, Other chronic pain G89.29 and Pain in right knee M25.561 [facility] [address] [address] 2546 Feb, PTSD (post-traumatic stress disorder) F43.10 [facility] [address] [address] 2546 Feb, [facility] [address] [id number] Jan, Dementia with behavioral disturbance, unspecified dementia type F03.91 ; Other chronic pain G89.29 and Plantar fasciitis M72.2 [facility] [address] [place] [id number] Jan, Daily headache R51 ; History of brain shunt Z98.2 ; Plantar fasciitis of left foot M72.2 ; Pain in right knee M25.561 and Pain in left knee M25.562 [facility] [address] [place] [address] 46865- 4241 14 Jan, 2018 [facility] [id number] [place] [address] 12111 2548 Jan, Pain in right knee M25.561 [facility] [id number] [place] [address] 71524 2546 Jan, [facility] [id number] [place] [address] 30138 2549 Jan, [facility] [address] [place] [address] 16757 2546 Jan, [facility] [address] [place] [address] 48425 2546 December, Other chronic pain G89.[address] [facility] [address] [id number] December, Pain in left knee M25.562 ; Pain in right leg M79.604 ; Other chronic pain G89.29 ; Localized edema R60.0 and PTSD (post-traumatic stress disorder) F43.10 [facility] [id number] [address] 8[address] December, [facility] [id number] [place] [address] 56787- 9501 December, PTSD (post-traumatic stress disorder) F43.10 [facility] [id number] [address] 2894 December, [facility] [id number] [place] [address] 66790- 1129 December, [facility] [id number] [place] [address] 85945- 2378 December, Depressive disorder, not elsewhere classified F32.9 and Cognitive change R41.89 [facility] [id number] [place] [address] 55869- 0770 Nov, Major depressive disorder, recurrent, moderate F33.1 [facility] [id number] [place] [address] 11297- 6233 Nov, [facility] [id number] [place] [address] 95555- 4364 Nov, [facility] [id number] [place] [address] 18695- 3632 Nov, [facility] [address] [place] [address] 84089- 1991 Nov, [facility] [address] [place] [address] 88759- 5169 Nov, Mood disorder F39 [facility] [address] [place] [address] 23922- 8980 Nov, Depressive disorder, not elsewhere classified F32.9 and Cognitive change R41.89 [facility] [address] [address] 7114 Nov, [facility] [address] [place] [address] 22092- 7297 Nov, 2018 [facility] [address] [id number] Oct, Tear of skin of plantar aspect of right foot, initial encounter S91.311A [facility] [address] [address] 8200 Oct, [facility] [id number] [address] 6725 Oct, [facility] [id number] [place] [address] [id number] Oct, [facility] [id number] [place] [address] [id number] Oct, [facility] [id number] [place] [address] [id number] Sep, [facility] [id number] [place] [address] [id number] Sep, [facility] [id number] [place] [address] [id number] Sep, [facility] [id number] [place] [address] [id number] Sep, [facility] [address] [address] Sep, [facility] [address] [address] [address] Sep, Other chronic pain G89.29 and Pain in left knee M25.562 [facility] [id number] [address] 2306 Sep, [facility] [address] [id number] Sep, Plantar fasciitis of left foot M72.2 and Pain in right knee M25.561 [facility] [address] [id number] [id number] Aug, [facility] [address] [address] 8862 Aug, [facility] [address] [facility] [id number], [place] [address] 5836 Aug, [facility] [address] [facility] [id number], [place] [address] 2646 Aug, Chronic daily headache R51 [facility] [address] [facility] [id number], [place] [address] 4596 Aug, [facility] [place] [facility] [address] [id number] Aug, Edema, unspecified type R60.9 ; Weight gain R63.5 and Sleep apnea, unspecified type G47.[address] [facility] [address] [id number] Jul, Acute pain of left knee M25.562 and Plantar fasciitis of left foot M72.2 [facility] [id number] [address] 6406 Jul, [facility] [address] [id number] Jul, Plantar fasciitis of left foot M72.2 and Chronic daily headache R51 [facility] [address] [id number] [id number] Jul, [facility] [address] [id number] [id number] Jun, [facility] [address] [facility] [id number], [place] [address] 2546 Jun, [facility] [address] [id number] [id number] Jun, [facility] [address] [id number][place] [id number] Jun, [facility] [address] [id number][place] [id number] May, [facility] [address] [id number] [id number] May, [facility] [address], [place] [address]- 5469 May, Stress incontinence of urine N39.3 [facility] [id number] [place] [address] [id number] May, [facility] [address] [id number] May, Encounter for examination for admission to detention Z02.2 ; Toxoplasmosis B58.9 ; Seizures R56.9 ; Major depressive disorder, recurrent, moderate F33.1 ; Degenerative brain disorder G31.9 and Unsteady gait R26.81 [facility] [id number] [place] [address] 80771- 6061 May, [facility] [id number] [place] [address] 65538- 0405 May, Mood disorder F39 [facility] [id number] [place] [address] 35674- 5464 May, [facility] [id number] [place] [address] 94925- 7688 Apr, [facility] [id number] [place] [address] 69616- 9853 Mar, [facility] [id number] [place] [address] 15982- 1645 Mar, [facility] [id number] [place] [address] 14726- 7556 Mar, [facility] [address] [place] [address] 29803- 4557 Mar, [facility] [id number] [place] [address] 96296- 8579 Mar, [facility] [address], [place] [address] 2402 Mar, Stress incontinence of urine N39.3 [facility] [id number] [place] [address] [id number] Mar, [facility] [place] [facility] [address] [id number] [place] [address]- 5908 Feb, [facility] [place] [facility] [address] [id number] [place] [address]- 1598 Feb, [facility] [place] [facility] [address] [facility] [id number] [place] [address]- 4261 Feb, [facility] [place] [facility] [address] [id number] [place] [address]- 8228 Feb, [facility] [place] [facility] [address] [id number] [place] [address]- 8599 Feb, [facility] [place] [facility] [address] [facility] [id number] [place] [address]- 0655 Feb, [facility] [place] [facility] [address] [facility] [id number] [place] [address]- 9496 Feb, [facility] [place] [facility] [address] [facility] [id number] [place] [address]- 6500 Jan, [facility] [place] [facility] [address] [facility] [id number] [place] [address]- 1154 Jan, [facility] [place] [facility] [address] [facility] [id number] [place] [address]- 2734 Jan, [facility] [place] [facility] [address] [facility] [id number] [place] [address]- 6929 Jan, [facility] [place] [facility] [address] [facility] [id number] [place] [address]- 2373 Jan, [facility] [place] [facility] [address] [facility] [id number] [place] [address]- 8042 Jan, [facility] [place] [facility] [address] [facility] [id number] [place] 9832 Jan, [facility] [place] [facility] [address] [facility] [id number] [place] 8828 Jan, General weakness R53.1 and Dementia with behavioral disturbance, unspecified dementia type F03.91 [facility] [id number] [address]- 7480 December, [facility] [id number] [place] [address] 9097 December, Other chronic pain G89.29 [facility] [id number] [place] [address] 77941- 0897 December, [facility] [id number] [place] [address] 11329- 2445 December, Unsteady gait R26.81 ; Generalized weakness R53.1 ; Unspecified mental disorder due to known physiological condition F09 and Generalized headaches R51 [facility] [id number] [place] [address] 76591- 2674 December, [facility] [id number] [place] [address] 41864- 1752 Nov, Anxiety F41.9 [facility] [id number] [place] [address] 72410- 0045 Nov, Mood disorder F39 [facility] [id number] [place] [address] 95997- 3455 Oct, [facility] [address] [place] [address] 36852- 9312 Oct, Anxiety F41.9 [facility] [id number] [place] [address] 81241- 7095 Oct, Other chronic pain G89.29 [facility] [id number] [place] [address] 47173- 4356 Sep, Other chronic pain G89.29 ; Pain in left knee M25.562 ; Pain in right knee M25.561 and Anxiety F41.9 [facility] [address] [address]- 7470 Sep, MDD (major depressive disorder), recurrent episode, mild F33.0 ; Degenerative brain disorder G31.9 and 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 [facility] [id number] [place] [address] 23264- 5496 Sep, [facility] [id number] [place] [address] 03295- 8216 Sep, [facility] [address] 26882- 1554 Sep, Mood disorder F39 ; Pain of left leg M79.605 and Pain in right leg M79.604 [facility] [address] 5[address]18- 5786 Sep, Seizures R56.9 [facility] [id number] [place] [address] 15422- 9173 Sep, [facility] [address] 48981- 8084 Sep, [facility] [id number] [place] [address] 23398- 6827 Sep, [facility] [id number] [place] [address] 96052- 4809 Aug, Bronchitis J40 [facility] [id number] [place] [address] 20832- 3972 Aug, Bronchitis J40 and Encounter for drug screening Z02.83 [facility] [id number] [place] [address] 62580- 5448 Aug, [facility] [id number] [place] [address] 60068- 0239 Aug, Seizures R56.9 [facility] [id number] [place] [address] 01797- 2546 Aug, Seizures R56.9 [facility] [address] 883507- 5132 Aug, Major depressive disorder, recurrent, moderate F33.1 and Seizures R56.9 [facility] [id number] [place] [address] 78613- 0277 Aug, [facility] [id number] [place] [address] 69163- 6632 Aug, [facility] [id number] [place] [address] 70291- 0526 Aug, Major depressive disorder, recurrent, moderate F33.1 and Seizures R56.9 [facility] [id number] [place] [address] 63984- 2140 Jul, Major depressive disorder, recurrent, moderate F33.1 and Degenerative brain disorder G31.9 [place] [id number] [place] [address] 08160- 1061 Jul, Seizures R56.9 [place] [id number] [place] [address] 22600- 3347 Apr, [place] [address] [place] [address] 98350- 4706 Apr, Major depressive disorder, recurrent, moderate F33.1 ; Anxiety F41.9 and Degenerative brain disorder G31.9 [place] [address] [place] [address] 35242- 9339 Apr, Mood disorder F39 [place] [id number] [place] [address] 54056- 5122 Apr, Arthritis M19.90 [facility] [address] [place] [address] 83958- 2172 Mar, Arthritis M19.90 ; Degenerative brain disorder G31.9 and Nonintractable generalized idiopathic epilepsy without status epilepticus G40.309 [place] [address] [place] [address] 09542- 2444 Feb, IMMUNIZATIONS No Known Immunizations SOCIAL HISTORY Never Assessed REASON FOR VISIT Psyche referral PLAN OF CARE VITAL SIGNS MEDICATIONS Unknown Medications RESULTS No Results PROCEDURES No Known procedures INSTRUCTIONS MEDICATIONS ADMINISTERED No Known Medications MEDICAL (GENERAL) HISTORY Type Description Date Medical History Toxoplasmosis Medical History migraine Medical History dementia Medical History depression Medical History alzheimers disease Medical History epilepsy Medical History COPD Surgical History cholecystectomy Surgical History appendectomy Surgical History 27 brain surgeries including shunt, [place] Surgical History neck fusion 09/26, 09/28 Surgical History right hand surgery Hospitalization History surgeries Hospitalization History seizures 12/2015
--- OUTSIDE RECORDS SUMMARY | 2018-07-01 14:09 | XMS REPORT ---
Author Author ESTEPHANIA IVAN Organization [facility] Address [address] [place] [address] Care Team Providers Care Rubber Trimmer Name Role Phone ESTEPHANIA IVAN Unavailable PROBLEMS Type Condition ICD9-CM Code DLF86-WK Code Onset Dates Condition Status SNOMED Code Problem Unspecified mental disorder due to known physiological condition F09 Active 950836012 Problem Major depressive disorder, recurrent, moderate F33.1 Active 68807248 Problem Dementia with behavioral disturbance, unspecified dementia type F03.91 Active 5977218334346 Problem Mood disorder F39 Active 65779242 Problem Other chronic pain G89.29 Active 31439101 Problem Anxiety F41.9 Active 01423233 Problem Unsteady gait R26.81 Active 52299268 Problem History of brain shunt Z98.2 Active 003889430 Problem PTSD (post-traumatic stress disorder) F43.10 Active 47369508 Problem Sleep apnea, unspecified type G47.30 Active 58760229 Problem Degenerative brain disorder G31.9 Active 51601666 Problem Depressive disorder, not elsewhere classified F32.9 Active 69738658 Problem Other chronic pain G89.29 Active 79722168 ALLERGIES No Information ENCOUNTERS Encounter Location Date Diagnosis [facility] [id number] [place] [address] 51982- 5738 Apr, [facility] [id number] [place] [address] 95347- 3428 Feb, PTSD (post-traumatic stress disorder) F43.10 [facility] [id number] [place] [address] 18071- 3619 Feb, PTSD (post-traumatic stress disorder) F43.10 [facility] [id number] [address] Feb, Other chronic pain G89.29 and Pain in right knee M25.561 [facility] [address] [address] 2546 Feb, PTSD (post-traumatic stress disorder) F43.10 [facility] [address] [address] 2546 Feb, [facility] [address] [id number] Jan, Dementia with behavioral disturbance, unspecified dementia type F03.91 ; Other chronic pain G89.29 and Plantar fasciitis M72.2 [facility] [address] [place] [id number] Jan, Daily headache R51 ; History of brain shunt Z98.2 ; Plantar fasciitis of left foot M72.2 ; Pain in right knee M25.561 and Pain in left knee M25.562 [facility] [id number] [place] [address] 30135- 8982 14 Jan, 2018 [facility] [id number] [place] [address] 49441 2547 Jan, Pain in right knee M25.561 [facility] [id number] [place] [address] 40475 2546 Jan, [facility] [id number] [place] [address] 38032 2540 Jan, [facility] [id number] [place] [address] 77923 2546 Jan, [facility] [id number] [place] [address] 91673 2546 December, Other chronic pain G89.[address] [facility] [address] [id number] December, Pain in left knee M25.562 ; Pain in right leg M79.604 ; Other chronic pain G89.29 ; Localized edema R60.0 and PTSD (post-traumatic stress disorder) F43.10 [facility] [id number] [address] 9[address] December, [facility] [id number] [place] [address] 86997- 2423 December, PTSD (post-traumatic stress disorder) F43.10 [facility] [id number] [address] 8882 December, [facility] [id number] [place] [address] 53522- 0693 December, [facility] [id number] [place] [address] 94304- 8138 December, Depressive disorder, not elsewhere classified F32.9 and Cognitive change R41.89 [facility] [id number] [place] [address] 08176- 0757 Nov, Major depressive disorder, recurrent, moderate F33.1 [facility] [id number] [place] [address] 29966- 5664 Nov, [facility] [id number] [place] [address] 77160- 1917 Nov, [facility] [id number] [place] [address] 30334- 5006 Nov, [facility] [id number] [place] [address] 05063- 4321 Nov, [facility] [id number] [place] [address] 65904- 1103 Nov, Mood disorder F39 [facility] [id number] [place] [address] 09457- 0029 Nov, Depressive disorder, not elsewhere classified F32.9 and Cognitive change R41.89 [facility] [address] [address] 7656 Nov, [facility] [id number] [place] [address] 56950- 6570 Nov, [facility] [address] [id number] Oct, Tear of skin of plantar aspect of right foot, initial encounter S91.311A [facility] [address] [address] 06[address] Oct, [facility] [id number], [place] [address] 4281 Oct, [facility] [id number] [place] [address] [id number] Oct, [facility] [id number] [place] [address] [id number] Oct, [facility] [id number] [place] [address] [id number] Sep, [facility] [id number] [place] [address] [id number] Sep, [facility] [id number] [place] [address] [id number] Sep, [facility] [id number] [place] [address] [id number] Sep, [facility] [address] [address] Sep, [facility] [address] [address] Sep, Other chronic pain G89.29 and Pain in left knee M25.562 [facility] [id number], [place] [address] 9196 Sep, [facility] [address] [id number] Sep, Plantar fasciitis of left foot M72.2 and Pain in right knee M25.561 [facility] [address] [id number] [id number] Aug, [facility] [address], [place] [address] 4010 Aug, [facility] [address] [facility] [id number], [place] [address] 2286 Aug, [facility] [address] [facility] [id number], [place] [address] 6176 Aug, Chronic daily headache R51 [facility] [address] [facility] [id number] [address] Aug, [facility] [place] [address] [id number] Aug, Edema, unspecified type R60.9 ; Weight gain R63.5 and Sleep apnea, unspecified type G47.[address] [facility] [address] [id number] Jul, Acute pain of left knee M25.562 and Plantar fasciitis of left foot M72.2 [facility] [id number], [place] [address]- 2016 Jul, [facility] [address] [place] [id number] Jul, Plantar fasciitis of left foot M72.2 and Chronic daily headache R51 [facility] [address] [id number] [id number] Jul, [facility] [address] [id number] [id number] Jun, [facility] [address] [facility] [id number], [place] [address] 2546 Jun, [facility] [address] [id number] [id number] Jun, [facility] [address] [id number] [id number] Jun, [facility] [address] [id number] [id number] May, [facility] [address] [id number] [id number] May, [facility] [address], [place] [address]- 2869 May, Stress incontinence of urine N39.3 [facility] [id number] [place] [address] [id number] May, [facility] [address] [id number] May, Encounter for examination for admission to group home Z02.2 ; Toxoplasmosis B58.9 ; Seizures R56.9 ; Major depressive disorder, recurrent, moderate F33.1 ; Degenerative brain disorder G31.9 and Unsteady gait R26.81 [facility] [id number] [place] [address] 22060- 3468 May, [facility] [id number] [place] [address] 42776- 5164 May, Mood disorder F39 [facility] [id number] [place] [address] 43140- 1122 May, [facility] [id number] [place] [address] 38043- 2559 Apr, [facility] [id number] [place] [address] 70144- 8640 Mar, [facility] [id number] [place] [address] 40821- 3655 Mar, [facility] [id number] [place] [address] 58013- 2025 Mar, [facility] [id number] [place] [address] 53282- 8505 Mar, [facility] [id number] [place] [address] 00856- 5570 Mar, [facility] [address], [place] [address]- 2857 Mar, Stress incontinence of urine N39.3 [facility] [id number] [place] [address] [id number] Mar, [facility] [place] [facility] [address] [id number] [place] [address]- 1815 Feb, [facility] [place] [facility] [address] [id number] [place] [address]- 4667 Feb, [facility] [place] [facility] [address] [facility] [id number] [place] [address]- 0677 Feb, [facility] [place] [facility] [address] [id number] [place] [address]- 7567 Feb, [facility] [place] [facility] [address] [id number] [place] [address]- 6217 Feb, [facility] [place] [facility] [address] [facility] [id number] [place] [address]- 2037 Feb, [facility] [place] [facility] [address] [facility] [id number] [place] [address]- 6403 Feb, [facility] [place] [facility] [address] [facility] [id number] [place] [address]- 1248 Jan, [facility] [place] [facility] [address] [facility] [id number] [place] [address]- 7590 Jan, [facility] [place] [facility] [address] [facility] [id number] [place] [address]- 3622 Jan, [facility] [place] [facility] [address] [facility] [id number] [place] [address]- 4578 Jan, [facility] [place] [facility] [address] [facility] [id number] [place] [address]- 0481 Jan, [facility] [place] [facility] [address] [facility] [id number] [place] [address]- 3178 Jan, [facility] [place] [facility] [address] [facility] [id number] [place] 6732 Jan, [facility] [place] [facility] [address] [facility] [id number] [place] 9554 Jan, General weakness R53.1 and Dementia with behavioral disturbance, unspecified dementia type F03.91 [facility] [id number], [place] [address]- 9017 December, [facility] [id number] [place] [address] 0665 December, Other chronic pain G89.29 [facility] [id number] [place] [address] 39355- 1196 December, [facility] [id number] [place] [address] 14420- 2332 December, Unsteady gait R26.81 ; Generalized weakness R53.1 ; Unspecified mental disorder due to known physiological condition F09 and Generalized headaches R51 [facility] [id number] [place] [address] 55533- 9340 December, [facility] [id number] [place] [address] 52981- 9630 Nov, Anxiety F41.9 [facility] [id number] [place] [address] 61967- 4343 Nov, Mood disorder F39 [facility] [id number] [place] [address] 31951- 9186 Oct, [facility] [id number] [place] [address] 90130- 7970 Oct, Anxiety F41.9 [facility] [id number] [place] [address] 51641- 3906 Oct, Other chronic pain G89.29 [facility] [id number] [place] [address] 07374- 0383 Sep, Other chronic pain G89.29 ; Pain in left knee M25.562 ; Pain in right knee M25.561 and Anxiety F41.9 [facility] [address] [address]- 4117 Sep, MDD (major depressive disorder), recurrent episode, mild F33.0 ; Degenerative brain disorder G31.9 and 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 [facility] [id number] [place] [address] 65481- 5126 Sep, [facility] [id number] [place] [address] 76664- 1786 Sep, [facility] [address] 20533- 9343 Sep, Mood disorder F39 ; Pain of left leg M79.605 and Pain in right leg M79.604 [facility] [address] 65092- 8106 Sep, Seizures R56.9 [facility] [id number] [place] [address] 06675- 9136 Sep, [facility] [address] 37050- 7816 Sep, [facility] [id number] [place] [address] 53078- 5784 Sep, [facility] [id number] [place] [address] 82142- 8852 Aug, Bronchitis J40 [facility] [id number] [place] [address] 48170- 6245 Aug, Bronchitis J40 and Encounter for drug screening Z02.83 [facility] [id number] [place] [address] 69626- 7011 Aug, [facility] [id number] [place] [address] 01451- 3571 Aug, Seizures R56.9 [facility] [id number] [place] [address] 94036- 2546 Aug, Seizures R56.9 [facility] [address] 142063- 7034 Aug, Major depressive disorder, recurrent, moderate F33.1 and Seizures R56.9 [facility] [id number] [place] [address] 04298- 4085 Aug, [facility] [id number] [place] [address] 36859- 5583 Aug, [facility] [id number] [place] [address] 50248- 4671 Aug, Major depressive disorder, recurrent, moderate F33.1 and Seizures R56.9 [facility] [id number] [place] [address] 60947- 6613 Jul, Major depressive disorder, recurrent, moderate F33.1 and Degenerative brain disorder G31.9 [place] [facility] [id number] [place] [address] 49120- 5819 Jul, Seizures R56.9 [place] [facility] [id number] [place] [address] 38416- 0686 Apr, [facility] [id number] [place] [address] 51711- 3212 Apr, Major depressive disorder, recurrent, moderate F33.1 ; Anxiety F41.9 and Degenerative brain disorder G31.9 [place] [id number] [place] [address] 89407- 1299 Apr, Mood disorder F39 [place] [id number] [place] [address] 22903- 1244 Apr, Arthritis M19.90 [facility] [id number] [place] [address] 46542- 3887 Mar, Arthritis M19.90 ; Degenerative brain disorder G31.9 and Nonintractable generalized idiopathic epilepsy without status epilepticus G40.309 [id number] [place] [address] 25162- 7548 Feb, IMMUNIZATIONS No Known Immunizations SOCIAL HISTORY Never Assessed REASON FOR VISIT therapy question PLAN OF CARE VITAL SIGNS MEDICATIONS Unknown Medications RESULTS No Results PROCEDURES No Known procedures INSTRUCTIONS MEDICATIONS ADMINISTERED No Known Medications MEDICAL (GENERAL) HISTORY Type Description Date Medical History Toxoplasmosis Medical History migraine Medical History dementia Medical History depression Medical History alzheimers disease Medical History epilepsy Medical History COPD Surgical History cholecystectomy Surgical History appendectomy Surgical History 27 brain surgeries including shunt, [place] Surgical History neck fusion 09/26, 09/28 Surgical History right hand surgery Hospitalization History surgeries Hospitalization History seizures 12/2015
--- OUTSIDE RECORDS SUMMARY | 2018-07-01 14:09 | XMS REPORT ---
Author Author CYNDI LEWIS Organization [facility] Address [address] [place] [address] Care Team Providers [employer] Associate Name Role Phone CYNDI LEWIS Unavailable PROBLEMS Type Condition ICD9-CM Code KOS55-RB Code Onset Dates Condition Status SNOMED Code Problem Unspecified mental disorder due to known physiological condition F09 Active 193523297 Problem Major depressive disorder, recurrent, moderate F33.1 Active 08820393 Problem Dementia with behavioral disturbance, unspecified dementia type F03.91 Active 6212128424909 Problem Mood disorder F39 Active 67485236 Problem Other chronic pain G89.29 Active 80245274 Problem Anxiety F41.9 Active 39862369 Problem Unsteady gait R26.81 Active 04394493 Problem History of brain shunt Z98.2 Active 777597862 Problem PTSD (post-traumatic stress disorder) F43.10 Active 74010174 Problem Sleep apnea, unspecified type G47.30 Active 88010774 Problem Degenerative brain disorder G31.9 Active 64650251 Problem Depressive disorder, not elsewhere classified F32.9 Active 31274971 Problem Other chronic pain G89.29 Active 38151872 ALLERGIES No Information ENCOUNTERS Encounter Location Date Diagnosis [place] [id number] [place] [address] 30831- 1545 Apr, [facility] [id number] [place] [address] 26545- 2821 Feb, PTSD (post-traumatic stress disorder) F43.10 [facility] [address] [place] [address] 91448- 5302 Feb, PTSD (post-traumatic stress disorder) F43.10 [facility] [id number] [address] 1565 Feb, Other chronic pain G89.29 and Pain in right knee M25.561 [facility] [address] [address] 6476 Feb, PTSD (post-traumatic stress disorder) F43.10 [facility] [address] [place] [address] 12726- 2543 Feb, [facility] [address] [id number] Jan, Dementia with behavioral disturbance, unspecified dementia type F03.91 ; Other chronic pain G89.29 and Plantar fasciitis M72.[address] [facility] [address] [id number] Jan, Daily headache R51 ; History of brain shunt Z98.2 ; Plantar fasciitis of left foot M72.2 ; Pain in right knee M25.561 and Pain in left knee M25.562 [facility] [address] [place] [address] 25287- 3015 14 Jan, 2018 [facility] [id number] [place] [address] 52327 2542 07 Jan, 2018 Pain in right knee M25.561 [facility] [id number] [place] [address] 45784 2543 Jan, [facility] [id number] [place] [address] 45150 2541 Jan, [facility] [address] [address] 2541 Jan, [facility] [address] [place] [address] 64881 2547 December, Other chronic pain G89.[address] [facility] [address] [id number] December, Pain in left knee M25.562 ; Pain in right leg M79.604 ; Other chronic pain G89.29 ; Localized edema R60.0 and PTSD (post-traumatic stress disorder) F43.10 [facility] [id number] [place] [address] 88081- 8873 December, [facility] [address] [address] 8709 December, PTSD (post-traumatic stress disorder) F43.10 [facility] [address] [address] 8516 December, [facility] [address] [address]- 7916 December, [facility] [address] [address]- 6429 December, Depressive disorder, not elsewhere classified F32.9 and Cognitive change R41.89 [facility] [address] [address] 0416 Nov, Major depressive disorder, recurrent, moderate F33.1 [facility] [address] [address]- 4431 Nov, [facility] [address] [address]- 5186 Nov, [facility] [address] [address]- 0097 Nov, [facility] [address] [address] Nov, [facility] [address] [address] 5129 Nov, Mood disorder F39 [facility] [id number] [address] 2541 Nov, Depressive disorder, not elsewhere classified F32.9 and Cognitive change R41.89 [facility] [address] [address]- 3517 Nov, [facility] [id number] [address] 5184 Nov, 2018 [facility] [address] [place] [id number] Oct, Tear of skin of plantar aspect of right foot, initial encounter S91.311A [facility] [address] [address] 2546 Oct, [facility] [address] [address] 9966 Oct, [facility] [id number] [id number] Oct, [facility] [id number] [id number] Oct, [facility] [id number] [place] [address] [id number] Sep, [facility] [id number] [id number] Sep, [facility] [id number] [place] [address] [id number] Sep, [facility] [id number] [place] [address] [id number] Sep, [facility] [address] [address]- 0876 Sep, [facility] [address] [address]- 0786 Sep, Other chronic pain G89.29 and Pain in left knee M25.562 [facility] [id number] [address] 2546 Sep, [facility] [address] [place] [id number] Sep, Plantar fasciitis of left foot M72.2 and Pain in right knee M25.561 [facility] [id number] [id number] Aug, [facility] [address] [address] 8430 Aug, [facility] [address] [facility] [id number] [address] 46[address] Aug, [facility] [id number] [address] 7276 Aug, Chronic daily headache R51 [facility] [id number] [address]- 6076 Aug, [facility] [place] [address] [place] [id number] Aug, Edema, unspecified type R60.9 ; Weight gain R63.5 and Sleep apnea, unspecified type G47.[address] [facility] [address] [id number] Jul, Acute pain of left knee M25.562 and Plantar fasciitis of left foot M72.2 [facility] [address] [address] 5086 Jul, [facility] [address] [place] [id number] Jul, Plantar fasciitis of left foot M72.2 and Chronic daily headache R51 [facility] [id number] [id number] Jul, [facility] [address] [id number] [id number] Jun, [facility] [address] [address] 2546 Jun, [facility] [address] [id number] [id number] Jun, [facility] [address] [id number] [id number] Jun, [facility] [address] [id number] [id number] May, [facility] [address] [id number] [id number] May, [facility] [id number] [address]- 5838 May, Stress incontinence of urine N39.3 [facility] [id number] [place] [address] [id number] May, [facility] [address] [place] [id number] May, Encounter for examination for admission to senior care Z02.2 ; Toxoplasmosis B58.9 ; Seizures R56.9 ; Major depressive disorder, recurrent, moderate F33.1 ; Degenerative brain disorder G31.9 and Unsteady gait R26.81 [facility] [id number] [place] [address] 49077- 7848 May, [facility] [id number] [place] [address] 76068- 6484 May, Mood disorder F39 [facility] [id number] [place] [address] 23242- 2495 May, [facility] [id number] [place] [address] 48028- 2425 Apr, [facility] [id number] [place] [address] 74366- 7394 Mar, [facility] [id number] [place] [address] 41345- 2466 Mar, [facility] [id number] [place] [address] 11478- 8064 Mar, [facility] [id number] [place] [address] 23340- 5749 Mar, [facility] [id number] [place] [address] 92314- 6028 Mar, [facility] [id number] [place] [address] 88052- 1907 Mar, Stress incontinence of urine N39.3 [facility] [id number] [place] [address] [id number] Mar, [facility] [place] [facility] [address] [id number] [place] [address]- 3122 Feb, [facility] [place] [facility] [address] [id number] [place] [address]- 5169 Feb, [facility] [place] [facility] [address] [facility] [id number] [place] [address]- 6877 Feb, [facility] [place] [facility] [address] [id number] [place] [address]- 6888 Feb, [facility] [place] [facility] [address] [id number] [place] [address]- 4689 Feb, [facility] [place] [facility] [address] [id number] [place] [address]- 8558 Feb, [facility] [place] [facility] [address] [facility] [id number] [place] [address]- 5310 Feb, [facility] [place] [facility] [address] [facility] [id number] [place] [address]- 3211 Jan, [facility] [place] [facility] [address] [facility] [id number] [place] [address]- 2743 Jan, [facility] [place] [facility] [address] [facility] [id number] [place] [address]- 8176 Jan, [facility] [place] [facility] [address] [facility] [id number] [place] [address]- 3182 Jan, [facility] [place] [facility] [address] [facility] [id number] [place] [address]- 6108 Jan, [facility] [place] [facility] [address] [facility] [id number] [place] [address]- 6798 Jan, [facility] [place] [facility] [address] [facility] [id number] [place] [address]- 7580 Jan, [facility] [place] [facility] [address] [facility] [id number] [place] [address]- 0304 Jan, General weakness R53.1 and Dementia with behavioral disturbance, unspecified dementia type F03.91 [facility] [id number] [place] [address] 15900- 0485 December, [facility] [id number] [place] [address] 62499- 7207 December, Other chronic pain G89.29 [facility] [id number] [place] [address] 30064- 7552 December, [facility] [id number] [place] [address] 18691- 9208 December, Unsteady gait R26.81 ; Generalized weakness R53.1 ; Unspecified mental disorder due to known physiological condition F09 and Generalized headaches R51 [facility] [id number] [place] [address] 52480- 9519 December, [facility] [id number] [place] [address] 62263- 8631 Nov, Anxiety F41.9 [facility] [id number] [place] [address] 63997- 9790 Nov, Mood disorder F39 [facility] [id number] [place] [address] 99504- 5125 Oct, [facility] [id number] [place] [address] 09645- 1468 Oct, Anxiety F41.9 [facility] [id number] [place] [address] 93195- 5032 Oct, Other chronic pain G89.29 [facility] [address] [place] [address] 75000- 9315 Sep, Other chronic pain G89.29 ; Pain in left knee M25.562 ; Pain in right knee M25.561 and Anxiety F41.9 [facility] [address] [place] [address] 80430- 8555 Sep, MDD (major depressive disorder), recurrent episode, mild F33.0 ; Degenerative brain disorder G31.9 and 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 [facility] [id number] [place] [address] 67190- 1246 Sep, [facility] [id number] [place] [address] 85973- 0276 Sep, [facility] [id number] [place] [address] 63410- 8006 Sep, Mood disorder F39 ; Pain of left leg M79.605 and Pain in right leg M79.604 [facility] [id number] [place] [address] 32185- 8866 14 Sep, 2016 Seizures R56.9 [facility] [id number] [place] [address] 81389- 0826 Sep, [facility] [id number] [place] [address] 15495- 3782 Sep, [facility] [id number] [place] [address] 48332- 7489 Sep, [facility] [id number] [place] [address] 52844- 9985 Aug, Bronchitis J40 [facility] [id number] [place] [address] 25205- 4945 Aug, Bronchitis J40 and Encounter for drug screening Z02.83 [facility] [id number] [place] [address] 73191- 0414 Aug, [facility] [id number] [place] [address] 61555- 0961 Aug, Seizures R56.9 [facility] [id number] [place] [address] 65939- 8467 Aug, Seizures R56.9 [facility] [id number] [place] [address] 16756- 2634 Aug, Major depressive disorder, recurrent, moderate F33.1 and Seizures R56.9 [place] [address] [address]- 2589 Aug, [place] [address] [place] [address] 38152- 4253 Aug, [place] [id number] [place] [address] 04769- 9461 Aug, Major depressive disorder, recurrent, moderate F33.1 and Seizures R56.9 [place] [id number] [place] [address] 46832- 7731 Jul, Major depressive disorder, recurrent, moderate F33.1 and Degenerative brain disorder G31.9 [place] [id number] [place] [address] 80191- 4697 Jul, Seizures R56.9 [place] [id number] [place] [address] 94539- 1723 Apr, [place] [id number] [place] [address] 88809- 8878 Apr, Major depressive disorder, recurrent, moderate F33.1 ; Anxiety F41.9 and Degenerative brain disorder G31.9 [place] [address] [address]- 9367 Apr, Mood disorder F39 [place] [address] [place] [address] 05208- 5045 Apr, Arthritis M19.90 [place] [address] [place] [address] 88163- 7676 Mar, Arthritis M19.90 ; Degenerative brain disorder G31.9 and Nonintractable generalized idiopathic epilepsy without status epilepticus G40.309 [place] [address] [address]- 6768 Feb, IMMUNIZATIONS No Known Immunizations SOCIAL HISTORY Never Assessed REASON FOR VISIT BH intake, Depression. PLAN OF CARE Activity Details Follow Up next available Reason:depression VITAL SIGNS MEDICATIONS Medication Instructions Dosage Frequency Start Date End Date Duration Status Naproxen 500 MG Orally every 12 hrs 1 tablet as needed 12h 30 Active Clonazepam 1 MG Orally Twice a day 1/2 tab in the AM and 1 tab in the PM 12h Sep, 28 days Active ProAir HFA 108 (90 Base) MCG/ACT Inhalation every 4 hrs 2 puffs as needed for cough or short of breath 4h 30 Active Omeprazole 20 mg Orally Once a day 1 capsules 24h Active Venlafaxine HCl ER 225 MG Orally Once a day 1 tablet with food Once a day Orally 30 day(s) 24h 30 days Active Ondansetron 4 MG Orally every 8 hrs PRN 1 tablet on the tongue and allow to dissolve Aug, Active Amitriptyline HCl 25 MG Orally Once a day at bedtime 1 tablet Active Oxybutynin Chloride ER 5 MG TAKE 1 TABLET BY MOUTH DAILY 30 Unknown Biofreeze 4 % Externally Once a day at bedtime 1 applicationt both ankles Active Colace 100 mg Orally twice a day 1 capsule 12h Active Clonidine HCl 0.1 MG Orally Twice a day 1 tablet 12h Active Zyrtec Allergy 10 mg Orally Once a day 1 tablet as needed 24h May, 30 day(s) Active Neurontin 300 MG Orally 3 times a day 1 capsule 8h Aug, Active Ditropan XL 5 mg Orally Once a day 1 tablet 24h Mar, 30 day(s) Active Memantine HCl 5 MG TAKE 1 TABLET BY MOUTH ONCE DAILY 30 Unknown Potassium Chloride ER 20 meq Orally Once a day 1 tablet with food 24h Sep, Jan, 30 day(s) Active Lexapro 20 mg 1 tablet Once a day Orally 90 days 90 Active Keppra 500 MG Orally 2 times a day 3 capsules 12h Unknown Advair Diskus 500-50 MCG/DOSE Inhalation Twice a day 1 puff 12h Unknown Divalproex Sodium 500 MG TAKE 3 TABLETS BY MOUTH TWICE DAILY 30 Active Quecreek 10-325 MG Orally 3 times a day 1 tablet 8h Oct, 28 days Unknown Furosemide 40 mg Orally Once a day in AM 1 tablet Sep, 30 day (s) Unknown Levetiracetam 500 mg Orally 2 times a day 3 tablets 12h Active RESULTS No Results PROCEDURES Procedure Date Ordered Result Body Site Psych diagnostic evaluation, established patient December 08, 2017 INSTRUCTIONS MEDICATIONS ADMINISTERED No Known Medications MEDICAL (GENERAL) HISTORY Type Description Date Medical History Toxoplasmosis Medical History migraine Medical History dementia Medical History depression Medical History alzheimers disease Medical History epilepsy Medical History COPD Surgical History cholecystectomy Surgical History appendectomy Surgical History 27 brain surgeries including shunt, [place] Surgical History neck fusion 09/26, 09/28 Surgical History right hand surgery Hospitalization History surgeries Hospitalization History seizures 12/2015
--- OUTSIDE RECORDS SUMMARY | 2018-07-01 14:10 | XMS REPORT ---
Author Author ESTEPHANIA IVAN Organization [facility] Address [address] [place] [address] Care Team Providers Care Supervisor Stone Name Role Phone ESTEPHANIA IVAN Unavailable PROBLEMS Type Condition ICD9-CM Code NAW28-TS Code Onset Dates Condition Status SNOMED Code Problem Unspecified mental disorder due to known physiological condition F09 Active 463202704 Problem Major depressive disorder, recurrent, moderate F33.1 Active 04447119 Problem Dementia with behavioral disturbance, unspecified dementia type F03.91 Active 0001656407262 Problem Mood disorder F39 Active 10339828 Problem Other chronic pain G89.29 Active 58445842 Problem Anxiety F41.9 Active 73943867 Problem Unsteady gait R26.81 Active 60917490 Problem History of brain shunt Z98.2 Active 754075683 Problem PTSD (post-traumatic stress disorder) F43.10 Active 39689525 Problem Sleep apnea, unspecified type G47.30 Active 20722055 Problem Degenerative brain disorder G31.9 Active 71754534 Problem Depressive disorder, not elsewhere classified F32.9 Active 43306606 Problem Other chronic pain G89.29 Active 40164963 ALLERGIES No Information ENCOUNTERS Encounter Location Date Diagnosis [facility] [id number] [place] [address] 63033- 7459 Apr, [facility] [id number] [place] [address] 47883- 2815 Feb, PTSD (post-traumatic stress disorder) F43.10 [facility] [id number] [place] [address] 13076- 7642 Feb, PTSD (post-traumatic stress disorder) F43.10 [facility] [id number] [address] 2127 Feb, Other chronic pain G89.29 and Pain in right knee M25.561 [facility] [address] [address] 2546 Feb, PTSD (post-traumatic stress disorder) F43.10 [facility] [address] [address] 2546 Feb, [facility] [address] [place] [id number] Jan, Dementia with behavioral disturbance, unspecified dementia type F03.91 ; Other chronic pain G89.29 and Plantar fasciitis M72.2 [facility] [address] [place] [id number] Jan, Daily headache R51 ; History of brain shunt Z98.2 ; Plantar fasciitis of left foot M72.2 ; Pain in right knee M25.561 and Pain in left knee M25.562 [facility] [address] [place] [address] 78011- 9855 14 Jan, 2018 [facility] [id number] [place] [address] 58882 2541 Jan, Pain in right knee M25.561 [facility] [id number] [place] [address] 13117 2546 Jan, [facility] [id number] [place] [address] 53763 2549 Jan, [facility] [id number] [place] [address] 02545 2546 Jan, [facility] [id number] [place] [address] 26063 2546 December, Other chronic pain G89.[address] [facility] [address] [id number] December, Pain in left knee M25.562 ; Pain in right leg M79.604 ; Other chronic pain G89.29 ; Localized edema R60.0 and PTSD (post-traumatic stress disorder) F43.10 [facility] [id number] [address] 1426 December, [facility] [id number] [place] [address] 47344- 1008 December, PTSD (post-traumatic stress disorder) F43.10 [facility] [id number] [address] 5311 December, [facility] [id number] [place] [address] 37739- 6368 December, [facility] [id number] [place] [address] 00585- 6268 December, Depressive disorder, not elsewhere classified F32.9 and Cognitive change R41.89 [facility] [id number] [place] [address] 21706- 5817 Nov, Major depressive disorder, recurrent, moderate F33.1 [facility] [id number] [place] [address] 86845- 3435 Nov, [facility] [id number] [place] [address] 02176- 8089 Nov, [facility] [id number] [place] [address] 04549- 4918 Nov, [facility] [address] [place] [address] 97947- 0459 Nov, [facility] [id number] [place] [address] 04264- 1188 Nov, Mood disorder F39 [facility] [address] [place] [address] 73236- 2604 Nov, Depressive disorder, not elsewhere classified F32.9 and Cognitive change R41.89 [facility] [address] [address] 3185 Nov, [facility] [address] [place] [address] 80600- 5074 Nov, [facility] [address] [place] [id number] Oct, Tear of skin of plantar aspect of right foot, initial encounter S91.311A [facility] [address] [address] 3786 Oct, [facility] [id number], [place] [address] 2029 Oct, [facility] [id number] [place] [address] [id number] Oct, [facility] [id number] [place] [address] [id number] Oct, [facility] [id number] [place] [address] [id number] Sep, [facility] [id number] [place] [address] [id number] Sep, [facility] [id number] [place] [address] [id number] Sep, [facility] [id number] [place] [address] [id number] Sep, [facility] [address] [address] 98[address] Sep, [facility] [address] [address] 7[address] Sep, Other chronic pain G89.29 and Pain in left knee M25.562 [facility] [id number], [place] [address] 3866 Sep, [facility] [address] [place] [id number] Sep, Plantar fasciitis of left foot M72.2 and Pain in right knee M25.561 [facility] [address] [id number] [id number] Aug, [facility] [address], [place] [address] 3904 Aug, [facility] [address] [facility] [facility] [id number], [place] [address] 5976 Aug, [facility] [address] [facility] [address] [facility] [id number] [address] 9616 Aug, Chronic daily headache R51 [facility] [address] [facility] [address] [facility] [id number], [place] [address]- 1466 Aug, [facility] [place] [facility] [address] [place] [id number] Aug, Edema, unspecified type R60.9 ; Weight gain R63.5 and Sleep apnea, unspecified type G47.[address] [facility] [address] [id number] Jul, Acute pain of left knee M25.562 and Plantar fasciitis of left foot M72.2 [facility] [id number], [place] [address]- 5436 Jul, [facility] [address] [place] [id number] Jul, Plantar fasciitis of left foot M72.2 and Chronic daily headache R51 [facility] [address] [id number] [id number] Jul, [facility] [address] [id number][place] [id number] Jun, [facility] [address] [address] [facility] [id number], [place] [address] 2546 Jun, [facility] [address] [id number] [id number] Jun, [facility] [address] [id number][place] [id number] Jun, [facility] [address] [id number][place] [id number] May, [facility] [address] [id number][place] [id number] May, [facility] [address], [place] [address]- 4841 May, Stress incontinence of urine N39.3 [facility] [id number] [place] [address] [id number] May, [facility] [address] [id number] May, Encounter for examination for admission to long term Z02.2 ; Toxoplasmosis B58.9 ; Seizures R56.9 ; Major depressive disorder, recurrent, moderate F33.1 ; Degenerative brain disorder G31.9 and Unsteady gait R26.81 [facility] [id number] [place] [address] 47187- 7210 May, [facility] [id number] [place] [address] 07010- 7687 May, Mood disorder F39 [facility] [id number] [place] [address] 27483- 1199 May, [facility] [id number] [place] [address] 77742- 6919 Apr, [facility] [id number] [place] [address] 48172- 8774 Mar, [facility] [id number] [place] [address] 23013- 1766 Mar, [facility] [id number] [place] [address] 98541- 7668 Mar, [facility] [id number] [place] [address] 50230- 0440 Mar, [facility] [id number] [place] [address] 17827- 2505 Mar, [facility] [address], [place] [address]- 8057 Mar, Stress incontinence of urine N39.3 [facility] [id number] [place] [address] [id number] Mar, [facility] [place] [facility] [address] [id number] [place] [address]- 2481 Feb, [facility] [place] [facility] [address] [id number] [place] [address]- 1248 Feb, [facility] [place] [facility] [address] [facility] [address] [facility] [id number] [place] [address]- 3139 Feb, [facility] [place] [facility] [address] [id number] [place] [address]- 2458 Feb, [facility] [place] [facility] [address] [id number] [place] [address]- 9516 Feb, [facility] [place] [facility] [address] [facility] [address] [facility] [id number] [place] [address]- 7271 Feb, [facility] [place] [facility] [address] [address] [facility] [id number] [place] [address]- 9913 Feb, [facility] [place] [facility] [address] [address] [facility] [id number] [place] [address]- 9549 Jan, [facility] [place] [facility] [address] [address] [facility] [id number] [place] [address]- 6630 Jan, [facility] [place] [facility] [address] [address] [facility] [id number] [place] [address]- 8141 Jan, [facility] [place] [facility] [address] [facility] [address] [facility] [id number] [place] [address]- 7059 Jan, [facility] [place] [facility] [address] [facility] [address] [facility] [id number] [place] [address]- 7324 Jan, [facility] [place] [facility] [address] [facility] [address] [facility] [id number] [place] [address]- 6350 Jan, [facility] [place] [facility] [address] [facility] [address] [facility] [id number] [place] 6361 Jan, [facility] [place] [facility] [address] [facility] [address] [facility] [id number] [place]- 0458 Jan, General weakness R53.1 and Dementia with behavioral disturbance, unspecified dementia type F03.91 [facility] [id number], [place] [address]- 8122 December, [facility] [id number] [place] [id number] 0308 December, Other chronic pain G89.29 [facility] [id number] [place] [address] 13119- 6747 December, [facility] [id number] [place] [address] 83772- 7403 December, Unsteady gait R26.81 ; Generalized weakness R53.1 ; Unspecified mental disorder due to known physiological condition F09 and Generalized headaches R51 [facility] [id number] [place] [address] 38498- 9463 December, [facility] [id number] [place] [address] 34754- 1731 Nov, Anxiety F41.9 [facility] [id number] [place] [address] 94510- 5289 Nov, Mood disorder F39 [facility] [id number] [place] [address] 98516- 9858 Oct, [facility] [address] [place] [address] 04817- 9875 Oct, Anxiety F41.9 [facility] [id number] [place] [address] 94911- 8598 Oct, Other chronic pain G89.29 [facility] [id number] [place] [address] 98025- 0605 Sep, Other chronic pain G89.29 ; Pain in left knee M25.562 ; Pain in right knee M25.561 and Anxiety F41.9 [facility] [address], [place] [address]- 3000 Sep, MDD (major depressive disorder), recurrent episode, mild F33.0 ; Degenerative brain disorder G31.9 and Other medical terminologist (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 Z79.899 [facility] [id number] [place] [address] 74892- 2856 Sep, [facility] [id number] [place] [address] 84252- 9806 Sep, [facility] [address] 83385- 5729 Sep, Mood disorder F39 ; Pain of left leg M79.605 and Pain in right leg M79.604 [facility] [address] 18645- 4276 Sep, Seizures R56.9 [facility] [id number] [place] [address] 08102- 3063 Sep, [facility] [address] 87497- 9010 Sep, [facility] [id number] [place] [address] 43289- 8531 Sep, [facility] [id number] [place] [address] 71836- 1779 Aug, Bronchitis J40 [facility] [id number] [place] [address] 14412- 8015 Aug, Bronchitis J40 and Encounter for drug screening Z02.83 [facility] [id number] [place] [address] 51695- 7542 Aug, [facility] [id number] [place] [address] 21837- 7990 Aug, Seizures R56.9 [facility] [id number] [place] [address] 73708- 2546 Aug, Seizures R56.9 [facility] [address] 605525- 5892 Aug, Major depressive disorder, recurrent, moderate F33.1 and Seizures R56.9 [facility] [address] [place] [address] 25983- 4377 Aug, [facility] [id number] [place] [address] 44809- 3357 Aug, [facility] [id number] [place] [address] 60945- 8256 Aug, Major depressive disorder, recurrent, moderate F33.1 and Seizures R56.9 [facility] [id number] [place] [address] 74361- 8738 Jul, Major depressive disorder, recurrent, moderate F33.1 and Degenerative brain disorder G31.9 [place] [facility] [id number] [place] [address] 63983- 2005 Jul, Seizures R56.9 [place] [id number] [place] [address] 50995- 5689 Apr, [place] [facility] [id number] [place] [address] 55516- 1208 Apr, Major depressive disorder, recurrent, moderate F33.1 ; Anxiety F41.9 and Degenerative brain disorder G31.9 [place] [address] [place] [address] 35377- 7045 Apr, Mood disorder F39 [place] [facility] [id number] [place] [address] 23397- 8129 Apr, Arthritis M19.90 [facility] [id number] [place] [address] 53443- 9588 Mar, Arthritis M19.90 ; Degenerative brain disorder G31.9 and Nonintractable generalized idiopathic epilepsy without status epilepticus G40.309 [place] [address] [place] [address] 55221- 5676 Feb, IMMUNIZATIONS No Known Immunizations SOCIAL HISTORY Never Assessed REASON FOR VISIT med refill PLAN OF CARE VITAL SIGNS MEDICATIONS Medication Instructions Dosage Frequency Start Date End Date Duration Status Amitriptyline HCl 25 MG Orally Once a day at bedtime 1 tablet 30 days Active RESULTS No Results PROCEDURES No Known procedures INSTRUCTIONS MEDICATIONS ADMINISTERED No Known Medications MEDICAL (GENERAL) HISTORY Type Description Date Medical History Toxoplasmosis Medical History migraine Medical History dementia Medical History depression Medical History alzheimers disease Medical History epilepsy Medical History COPD Surgical History cholecystectomy Surgical History appendectomy Surgical History 27 brain surgeries including shunt, [place] Surgical History neck fusion 09/26, 09/28 Surgical History right hand surgery Hospitalization History surgeries Hospitalization History seizures 12/2015
--- OUTSIDE RECORDS SUMMARY | 2018-07-01 14:10 | XMS REPORT ---
Author Author ESTEPHANIA IVAN Organization [facility] Address [address] [place] [address] Care Team Providers Care Special Makeup Fx Artist Instructor Name Role Phone ESTEPHANIA IVAN Unavailable PROBLEMS Type Condition ICD9-CM Code GGI69-UQ Code Onset Dates Condition Status SNOMED Code Problem Unspecified mental disorder due to known physiological condition F09 Active 765159746 Problem Major depressive disorder, recurrent, moderate F33.1 Active 53790072 Problem Dementia with behavioral disturbance, unspecified dementia type F03.91 Active 4386516993387 Problem Mood disorder F39 Active 20582678 Problem Other chronic pain G89.29 Active 77486284 Problem Anxiety F41.9 Active 76903764 Problem Unsteady gait R26.81 Active 01046622 Problem History of brain shunt Z98.2 Active 514773702 Problem PTSD (post-traumatic stress disorder) F43.10 Active 53845497 Problem Sleep apnea, unspecified type G47.30 Active 89659188 Problem Degenerative brain disorder G31.9 Active 59234506 Problem Depressive disorder, not elsewhere classified F32.9 Active 65086782 Problem Other chronic pain G89.29 Active 18073346 ALLERGIES No Information ENCOUNTERS Encounter Location Date Diagnosis [facility] [address] [place] [address] 07198- 8724 Apr, [facility] [address] [place] [address] 83495- 7000 Feb, PTSD (post-traumatic stress disorder) F43.10 [facility] [address] [place] [address] 26752- 2640 Feb, PTSD (post-traumatic stress disorder) F43.10 [facility] [id number] [address] 8172 Feb, Other chronic pain G89.29 and Pain in right knee M25.561 [facility] [address] [address] 2546 Feb, PTSD (post-traumatic stress disorder) F43.10 [facility] [address] [address] 2546 Feb, [facility] [address] [place] [id number] Jan, Dementia with behavioral disturbance, unspecified dementia type F03.91 ; Other chronic pain G89.29 and Plantar fasciitis M72.2 [facility] [address] [place] [id number] Jan, Daily headache R51 ; History of brain shunt Z98.2 ; Plantar fasciitis of left foot M72.2 ; Pain in right knee M25.561 and Pain in left knee M25.562 [facility] [address] [place] [address] 51777- 2561 14 Jan, 2018 [facility] [id number] [place] [address] 91750 2540 Jan, Pain in right knee M25.561 [facility] [id number] [place] [address] 41369 2546 Jan, [facility] [id number] [place] [address] 23192 2548 Jan, [facility] [address] [place] [address] 70949 2546 Jan, [facility] [address] [place] [address] 77563 2546 December, Other chronic pain G89.[address] [facility] [address] [id number] December, Pain in left knee M25.562 ; Pain in right leg M79.604 ; Other chronic pain G89.29 ; Localized edema R60.0 and PTSD (post-traumatic stress disorder) F43.10 [facility] [id number] [address] 39[address] December, [facility] [id number] [place] [address] 90560- 7965 December, PTSD (post-traumatic stress disorder) F43.10 [facility] [id number] [address] 4827 December, [facility] [id number] [place] [address] 73613- 5522 December, [facility] [id number] [place] [address] 47636- 6685 December, Depressive disorder, not elsewhere classified F32.9 and Cognitive change R41.89 [facility] [id number] [place] [address] 66561- 9456 Nov, Major depressive disorder, recurrent, moderate F33.1 [facility] [id number] [place] [address] 40582- 7494 Nov, [facility] [id number] [place] [address] 49785- 0960 Nov, [facility] [id number] [place] [address] 21760- 1127 Nov, [facility] [address] [place] [address] 62304- 1854 Nov, [facility] [address] [place] [address] 05502- 5194 Nov, Mood disorder F39 [facility] [address] [place] [address] 52583- 6392 Nov, Depressive disorder, not elsewhere classified F32.9 and Cognitive change R41.89 [facility] [address] [address] 1167 Nov, [facility] [address] [place] [address] 46067- 6288 Nov, 2018 [facility] [address] [place] [id number] Oct, Tear of skin of plantar aspect of right foot, initial encounter S91.311A [facility] [address] [address] 7[address] Oct, [facility] [id number] [address] 5195 Oct, [facility] [id number] [place] [address] [phone] Oct, [facility] [id number] [place] [address] [id number] Oct, [facility] [id number] [place] [address] [id number] Sep, [facility] [id number] [place] [address] [id number] Sep, [facility] [id number] [place] [address] [id number] Sep, [facility] [id number] [place] [address] [phone] Sep, [facility] [address] [address] Sep, [facility] [address] [address] 3[address] Sep, Other chronic pain G89.29 and Pain in left knee M25.562 [facility] [id number] [address] 9646 Sep, [facility] [address] [place] [id number] Sep, Plantar fasciitis of left foot M72.2 and Pain in right knee M25.561 [facility] [address] [id number] [id number] Aug, [facility] [address], [place] [address] 8351 Aug, [facility] [address] [facility] [id number], [place] [address] 9546 Aug, [facility] [address] [facility] [id number], [place] [address] 9126 Aug, Chronic daily headache R51 [facility] [address] [facility] [id number] [address] Aug, [facility] [place] [address] [place] [id number] Aug, Edema, unspecified type R60.9 ; Weight gain R63.5 and Sleep apnea, unspecified type G47.[address] [facility] [address] [id number] Jul, Acute pain of left knee M25.562 and Plantar fasciitis of left foot M72.2 [facility] [id number], [place] [address] 5066 Jul, [facility] [address] [place] [id number] Jul, Plantar fasciitis of left foot M72.2 and Chronic daily headache R51 [facility] [address] [id number] [id number] Jul, [facility] [address] [id number] [id number] Jun, [facility] [address] [facility] [id number], [place] [address] 2546 Jun, [facility] [address] [id number] [id number] Jun, [facility] [address] [id number] [id number] Jun, [facility] [address] [id number] [id number] May, [facility] [address] [id number] [id number] May, [facility] [address] [address]- 7772 May, Stress incontinence of urine N39.3 [facility] [id number] [place] [address] [id number] May, [facility] [address] [place] [id number] May, Encounter for examination for admission to intermediate Z02.2 ; Toxoplasmosis B58.9 ; Seizures R56.9 ; Major depressive disorder, recurrent, moderate F33.1 ; Degenerative brain disorder G31.9 and Unsteady gait R26.81 [facility] [id number] [place] [address] 44407- 0486 May, [facility] [id number] [place] [address] 23515- 2060 May, Mood disorder F39 [facility] [id number] [place] [address] 31736- 2120 May, [facility] [address] [place] [address] 42944- 1063 Apr, [facility] [id number] [place] [address] 12849- 7017 Mar, [facility] [address] [place] [address] 10842- 2775 Mar, [facility] [id number] [place] [address] 79905- 0691 Mar, [facility] [address] [place] [address] 56708- 4707 Mar, [facility] [id number] [place] [address] 85786- 2084 Mar, [facility] [address], [place] [address]- 9591 Mar, Stress incontinence of urine N39.3 [facility] [id number] [place] [address] [id number] Mar, [facility] [place] [facility] [address] [id number] [place] [address] 4623 Feb, [facility] [place] [facility] [address] [id number] [place] [address]- 1056 Feb, [facility] [place] [facility] [address] [facility] [id number] [place] [address]- 5825 Feb, [facility] [place] [facility] [address] [id number] [place] [address]- 0431 Feb, [facility] [place] [facility] [address] [id number] [place] [address]- 1725 Feb, [facility] [place] [facility] [address] [facility] [id number] [place] [address]- 0653 Feb, [facility] [place] [facility] [address] [facility] [id number] [place] [address]- 3118 Feb, [facility] [place] [facility] [address] [facility] [id number] [place] [address]- 6457 Jan, [facility] [place] [facility] [address] [facility] [id number] [place] [address]- 3309 Jan, [facility] [place] [facility] [address] [facility] [id number] [place] [address]- 7731 Jan, [facility] [place] [facility] [address] [facility] [id number] [place] [address]- 0511 Jan, [facility] [place] [facility] [address] [facility] [id number] [place] [address]- 4547 Jan, [facility] [place] [facility] [address] [facility] [id number] [place] [address]- 4967 Jan, [facility] [place] [facility] [address] [facility] [id number] [place] 9344 Jan, [facility] [place] [facility] [address] [facility] [id number] [place] 1779 Jan, General weakness R53.1 and Dementia with behavioral disturbance, unspecified dementia type F03.91 [facility] [id number], [place] [address]- 9287 December, [facility] [id number] [place] [id number] 3263 December, Other chronic pain G89.29 [facility] [id number] [place] [address] 95664- 3613 December, [facility] [address] [place] [address] 95866- 3876 December, Unsteady gait R26.81 ; Generalized weakness R53.1 ; Unspecified mental disorder due to known physiological condition F09 and Generalized headaches R51 [facility] [address] [place] [address] 40478- 7849 December, [facility] [id number] [place] [address] 96504- 4054 Nov, Anxiety F41.9 [facility] [address] [place] [address] 69595- 8393 Nov, Mood disorder F39 [facility] [id number] [place] [address] 27859- 5976 Oct, [facility] [address] [place] [address] 46276- 2111 Oct, Anxiety F41.9 [facility] [address] [place] [address] 84578- 9755 Oct, Other chronic pain G89.29 [facility] [address] [place] [address] 70670- 6885 Sep, Other chronic pain G89.29 ; Pain in left knee M25.562 ; Pain in right knee M25.561 and Anxiety F41.9 [facility] [address], [place] [address]- 7391 Sep, MDD (major depressive disorder), recurrent episode, mild F33.0 ; Degenerative brain disorder G31.9 and 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 [facility] [id number] [place] [address] 87089- 7196 Sep, [facility] [address] [place] [address] 09242- 5226 Sep, [facility] [address] 25237- 9966 Sep, Mood disorder F39 ; Pain of left leg M79.605 and Pain in right leg M79.604 [facility] [address] 58443- 0836 Sep, Seizures R56.9 [facility] [address] [place] [address] 80273- 3779 Sep, [facility] [address] 67040- 7999 Sep, [facility] [address] [place] [address] 66943- 3485 Sep, [facility] [id number] [place] [address] 88882- 9395 Aug, Bronchitis J40 [facility] [address] [place] [address] 59020- 5479 Aug, Bronchitis J40 and Encounter for drug screening Z02.83 [facility] [address] [place] [address] 97218- 8837 Aug, [facility] [address] [place] [address] 46691- 3345 Aug, Seizures R56.9 [facility] [address] [place] [address] 71576- 2546 Aug, Seizures R56.9 [facility] [address] 004885- 6959 Aug, Major depressive disorder, recurrent, moderate F33.1 and Seizures R56.9 [facility] [address] [place] [address] 17530- 8196 Aug, [facility] [id number] [place] [address] 25303- 7756 Aug, [facility] [address] [place] [address] 64704- 4958 Aug, Major depressive disorder, recurrent, moderate F33.1 and Seizures R56.9 [facility] [address] [place] [address] 29945- 9152 Jul, Major depressive disorder, recurrent, moderate F33.1 and Degenerative brain disorder G31.9 [place] [address] [place] [address] 79372- 1161 Jul, Seizures R56.9 [place] [address] [place] [address] 02928- 1018 Apr, [place] [address] [place] [address] 45090- 8960 Apr, Major depressive disorder, recurrent, moderate F33.1 ; Anxiety F41.9 and Degenerative brain disorder G31.9 [place] [address] [place] [address] 17846- 6381 Apr, Mood disorder F39 [place] [address] [place] [address] 78566- 5311 Apr, Arthritis M19.90 [facility] [address] [place] [address] 09270- 9305 Mar, Arthritis M19.90 ; Degenerative brain disorder G31.9 and Nonintractable generalized idiopathic epilepsy without status epilepticus G40.309 [place] [address] [place] [address] 79242- 7269 Feb, IMMUNIZATIONS No Known Immunizations SOCIAL HISTORY Never Assessed REASON FOR VISIT Refill request PLAN OF CARE VITAL SIGNS MEDICATIONS Medication Instructions Dosage Frequency Start Date End Date Duration Status Neurontin 300 MG Orally 3 times a day 1 capsule 8h 10 Aug, 2017 Active RESULTS No Results PROCEDURES No Known procedures INSTRUCTIONS MEDICATIONS ADMINISTERED No Known Medications MEDICAL (GENERAL) HISTORY Type Description Date Medical History Toxoplasmosis Medical History migraine Medical History dementia Medical History depression Medical History alzheimers disease Medical History epilepsy Medical History COPD Surgical History cholecystectomy Surgical History appendectomy Surgical History 27 brain surgeries including shunt, [place] Surgical History neck fusion 09/26, 09/28 Surgical History right hand surgery Hospitalization History surgeries Hospitalization History seizures 12/2015
--- OUTSIDE RECORDS SUMMARY | 2018-07-01 14:10 | XMS REPORT ---
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 Name Role Phone ESTEPHANIA IVAN Unavailable PROBLEMS Type Condition ICD9-CM Code ZLF88-CZ Code Onset Dates Condition Status SNOMED Code Problem Unspecified mental disorder due to known physiological condition F09 Active 228212988 Problem Major depressive disorder, recurrent, moderate F33.1 Active 19119492 Problem Dementia with behavioral disturbance, unspecified dementia type F03.91 Active 7089717679663 Problem Mood disorder F39 Active 24670831 Problem Other chronic pain G89.29 Active 30281807 Problem Anxiety F41.9 Active 16514095 Problem Unsteady gait R26.81 Active 00358476 Problem History of brain shunt Z98.2 Active 995966245 Problem PTSD (post-traumatic stress disorder) F43.10 Active 89878327 Problem Sleep apnea, unspecified type G47.30 Active 86796458 Problem Degenerative brain disorder G31.9 Active 58445082 Problem Depressive disorder, not elsewhere classified F32.9 Active 86448355 Problem Other chronic pain G89.29 Active 87696898 ALLERGIES No Information ENCOUNTERS Encounter Location Date Diagnosis [facility] [place] [id number] [place] [address] 47231- 2685 Apr, [facility] [place] [id number] [place] [address] 42138- 5714 Feb, PTSD (post-traumatic stress disorder) F43.10 [facility] [place] [id number] [place] [address] 69872- 5809 Feb, PTSD (post-traumatic stress disorder) F43.10 [facility] [place] [id number] [address] Feb, Other chronic pain G89.29 and Pain in right knee M25.561 [facility] [place] [address] [address] 2546 Feb, PTSD (post-traumatic stress disorder) F43.10 [facility] [place] [address] [address] 2546 Feb, [facility] [address] [place] [id number] Jan, Dementia with behavioral disturbance, unspecified dementia type F03.91 ; Other chronic pain G89.29 and Plantar fasciitis M72.2 [facility] [address] [place] [id number] Jan, Daily headache R51 ; History of brain shunt Z98.2 ; Plantar fasciitis of left foot M72.2 ; Pain in right knee M25.561 and Pain in left knee M25.562 [facility] [place] [id number] [place] [address] 20928- 1582 14 Jan, 2018 [facility] [place] [id number] [place] [address] 60640 2549 Jan, Pain in right knee M25.561 [facility] [place] [id number] [place] [address] 24186 2546 Jan, [facility] [place] [id number] [place] [address] 23623 2542 Jan, [facility] [place] [id number] [place] [address] 71749 2546 Jan, [facility] [place] [id number] [place] [address] 41289 2546 December, Other chronic pain G89.[address] [facility] [address] [id number] December, Pain in left knee M25.562 ; Pain in right leg M79.604 ; Other chronic pain G89.29 ; Localized edema R60.0 and PTSD (post-traumatic stress disorder) F43.10 [facility] [place] [id number] [address] 4739 December, [facility] [place] [id number] [place] [address] 00073- 4848 December, PTSD (post-traumatic stress disorder) F43.10 [facility] [place] [id number] [address] 7200 December, [facility] [place] [id number] [place] [address] 22762- 2652 December, [facility] [place] [id number] [place] [address] 24226- 1835 December, Depressive disorder, not elsewhere classified F32.9 and Cognitive change R41.89 [facility] [place] [id number] [place] [address] 58514- 5872 Nov, Major depressive disorder, recurrent, moderate F33.1 [facility] [place] [id number] [place] [address] 31342- 7234 Nov, [facility] [place] [id number] [place] [address] 04568- 7125 Nov, [facility] [place] [id number] [place] [address] 17466- 8164 Nov, [facility] [place] [id number] [place] [address] 13339- 2965 Nov, [facility] [place] [address] [place] [address] 73027- 9506 Nov, Mood disorder F39 [facility] [place] [address] [place] [address] 13946- 3848 Nov, Depressive disorder, not elsewhere classified F32.9 and Cognitive change R41.89 [facility] [place] [address] [address] 5828 Nov, [facility] [place] [address] [place] [address] 15235- 1660 Nov, 2018 [facility] [address] [place] [id number] Oct, Tear of skin of plantar aspect of right foot, initial encounter S91.311A [facility] [place] [address] [address] 7467 Oct, [facility] [address] [id number] [address] 1331 Oct, [facility] [id number] [place] [address] [id number] Oct, [facility] [id number] [place] [address] [id number] Oct, [facility] [id number] [place] [address] [id number] Sep, [facility] [id number] [place] [address] [id number] Sep, [facility] [id number] [place] [address] [id number] Sep, [facility] [id number] [place] [address] [id number] Sep, [facility] [address] 1609 Sep, [facility] [place] [address] [address] 3[address] Sep, Other chronic pain G89.29 and Pain in left knee M25.562 [facility] [place] [id number] [address] 5166 Sep, [facility] [address] [place] [id number] Sep, Plantar fasciitis of left foot M72.2 and Pain in right knee M25.561 [facility] [address] [id number] [id number] Aug, [facility] [place] [address] [address] 4489 Aug, [facility] [address] [facility] [id number] [place] [address] 1666 Aug, [facility] [address] [facility] [id number] [place] [address] 6206 Aug, Chronic daily headache R51 [facility] [place] [address] [facility] [id number] [place] [address]- 5176 Aug, [facility] [address] [place] [id number] Aug, Edema, unspecified type R60.9 ; Weight gain R63.5 and Sleep apnea, unspecified type G47.[address] [facility] [address] [id number] Jul, Acute pain of left knee M25.562 and Plantar fasciitis of left foot M72.2 [facility] [place] [id number] [address]- 0096 Jul, [facility] [address] [place] [id number] Jul, Plantar fasciitis of left foot M72.2 and Chronic daily headache R51 [facility] [address] [id number] [place] [id number] Jul, [facility] [address] [id number] [place] [id number] Jun, [facility] [address] [facility] [id number] [place] [address] 2546 Jun, [facility] [address] [place] [address] [id number] [id number] Jun, [facility] [address] [id number] [place] [id number] Jun, [facility] [address] [id number] [place] [id number] May, [facility] [address] [id number] [place] [id number] May, [facility] [place] [address] [address] 9362 May, Stress incontinence of urine N39.3 [facility] [id number] [place] [address] [id number] May, [facility] [address] [id number] May, Encounter for examination for admission to senior living Z02.2 ; Toxoplasmosis B58.9 ; Seizures R56.9 ; Major depressive disorder, recurrent, moderate F33.1 ; Degenerative brain disorder G31.9 and Unsteady gait R26.81 [facility] [place] [id number] [place] [address] 47100- 5369 May, [facility] [place] [id number] [place] [address] 36093- 1832 May, Mood disorder F39 [facility] [place] [id number] [place] [address] 36762- 0324 May, [facility] [place] [id number] [place] [address] 06888- 5326 Apr, [facility] [place] [id number] [place] [address] 31071- 0255 Mar, [facility] [place] [id number] [place] [address] 25969- 0722 Mar, [facility] [place] [id number] [place] [address] 91949- 0923 Mar, [facility] [place] [id number] [place] [address] 23499- 9691 Mar, [facility] [place] [id number] [place] [address] 37470- 3588 Mar, [facility] [place] [address] [address]- 4703 Mar, Stress incontinence of urine N39.3 [facility] [id number] [place] [address] [id number] Mar, [facility] [place] [facility] [address] [id number] [place] [address]- 9178 Feb, [facility] [place] [facility] [address] [id number] [place] [address]- 4405 Feb, [facility] [place] [facility] [address] [facility] [id number] [place] [address]- 9556 Feb, [facility] [place] [facility] [address] [id number] [place] [address]- 8546 Feb, [facility] [place] [facility] [address] [id number] [place] [address]- 7313 Feb, [facility] [place] [facility] [address] [facility] [id number] [place] [address]- 6550 Feb, [facility] [place] [facility] [address] [facility] [id number] [place] [address]- 4775 Feb, [facility] [place] [facility] [address] [facility] [id number] [place] [address]- 5965 Jan, [facility] [place] [facility] [address] [facility] [id number] [place] [address]- 6015 Jan, [facility] [place] [facility] [address] [facility] [id number] [place] [address]- 5185 Jan, [facility] [place] [facility] [address] [facility] [id number] [place] [address]- 1923 Jan, [facility] [place] [facility] [address] [facility] [id number] [place] [address]- 4219 Jan, [facility] [place] [facility] [address] [facility] [id number] [place] [address]- 5671 Jan, [facility] [place] [facility] [address] [facility] [id number] [place]- 6104 Jan, [facility] [place] [facility] [address] [facility] [id number] [place]- 6279 Jan, General weakness R53.1 and Dementia with behavioral disturbance, unspecified dementia type F03.91 [facility] [place] [id number] [address]- 6781 December, [facility] [place] [id number] [place] [address] 2184 December, Other chronic pain G89.29 [facility] [place] [id number] [place] [address] 89809- 0737 December, [facility] [place] [id number] [place] [address] 09547- 1146 December, Unsteady gait R26.81 ; Generalized weakness R53.1 ; Unspecified mental disorder due to known physiological condition F09 and Generalized headaches R51 [facility] [place] [id number] [place] [address] 20434- 0752 December, [facility] [place] [id number] [place] [address] 25993- 6133 Nov, Anxiety F41.9 [facility] [place] [id number] [place] [address] 34434- 7786 Nov, Mood disorder F39 [facility] [place] [id number] [place] [address] 08948- 8121 Oct, [facility] [place] [address] [place] [address] 87948- 8781 Oct, Anxiety F41.9 [facility] [place] [id number] [place] [address] 83953- 3330 Oct, Other chronic pain G89.29 [facility] [place] [id number] [place] [address] 28783- 5910 Sep, Other chronic pain G89.29 ; Pain in left knee M25.562 ; Pain in right knee M25.561 and Anxiety F41.9 [facility] [place] [address] [address]- 1692 Sep, MDD (major depressive disorder), recurrent episode, mild F33.0 ; Degenerative brain disorder G31.9 and Other technician terminal and repeater (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 Z79.899 [facility] [place] [id number] [place] [address] 21645- 0136 Sep, [facility] [place] [id number] [place] [address] 98712- 1846 Sep, [facility] [place] [address] [address]83- 7978 Sep, Mood disorder F39 ; Pain of left leg M79.605 and Pain in right leg M79.604 [facility] [place] [address] 49995- 2276 Sep, Seizures R56.9 [facility] [place] [id number] [place] [address] 02289- 1608 Sep, [facility] [place] [address] 10428- 1401 Sep, [facility] [place] [id number] [place] [address] 10643- 5604 Sep, [facility] [place] [id number] [place] [address] 75431- 8339 Aug, Bronchitis J40 [facility] [place] [id number] [place] [address] 44055- 6230 Aug, Bronchitis J40 and Encounter for drug screening Z02.83 [facility] [place] [id number] [place] [address] 84565- 6258 Aug, [facility] [place] [id number] [place] [address] 43586- 7270 Aug, Seizures R56.9 [facility] [place] [id number] [place] [address] 63992- 2546 Aug, Seizures R56.9 [facility] [place] [address] 459548- 6055 Aug, Major depressive disorder, recurrent, moderate F33.1 and Seizures R56.9 [facility] [place] [id number] [place] [address] 96971- 7046 Aug, [facility] [place] [id number] [place] [address] 18206- 5328 Aug, [facility] [place] [id number] [place] [address] 00209- 0950 Aug, Major depressive disorder, recurrent, moderate F33.1 and Seizures R56.9 [facility] [place] [id number] [place] [address] 69833- 0368 Jul, Major depressive disorder, recurrent, moderate F33.1 and Degenerative brain disorder G31.9 [facility] [place] [id number] [place] [address] 53692- 2038 Jul, Seizures R56.9 [place] [facility] [id number] [place] [address] 65009- 8299 Apr, [facility] [place] [id number] [place] [address] 30968- 9508 Apr, Major depressive disorder, recurrent, moderate F33.1 ; Anxiety F41.9 and Degenerative brain disorder G31.9 [place] [address] [place] [address] 35940- 0145 Apr, Mood disorder F39 [place] [facility] [id number] [place] [address] 08927- 2833 Apr, Arthritis M19.90 [facility] [place] [address] [place] [address] 12393- 7288 Mar, Arthritis M19.90 ; Degenerative brain disorder G31.9 and Nonintractable generalized idiopathic epilepsy without status epilepticus G40.309 [place] [id number] [place] [address] 49672- 1008 Feb, IMMUNIZATIONS No Known Immunizations SOCIAL HISTORY Never Assessed REASON FOR VISIT Controlled Med Refill PLAN OF CARE VITAL SIGNS MEDICATIONS Medication Instructions Dosage Frequency Start Date End Date Duration Status [place] 10-325 MG Orally 3 times a day 1 tablet 8h Nov, 28 days Active RESULTS No Results PROCEDURES No Known procedures INSTRUCTIONS MEDICATIONS ADMINISTERED No Known Medications MEDICAL (GENERAL) HISTORY Type Description Date Medical History Toxoplasmosis Medical History migraine Medical History dementia Medical History depression Medical History alzheimers disease Medical History epilepsy Medical History COPD Surgical History cholecystectomy Surgical History appendectomy Surgical History 27 brain surgeries including shunt, [place] Surgical History neck fusion 09/26, 09/28 Surgical History right hand surgery Hospitalization History surgeries Hospitalization History seizures 12/2015
--- OUTSIDE RECORDS SUMMARY | 2018-07-01 14:11 | XMS REPORT ---
Author Author ESTEPHANIA IVAN Organization [facility] Address [address] [place] [address] Care Team Providers Care Accounting Intern Name Role Phone ESTEPHANIA IVAN Unavailable PROBLEMS Type Condition ICD9-CM Code EDE82-RE Code Onset Dates Condition Status SNOMED Code Problem Unspecified mental disorder due to known physiological condition F09 Active 047824674 Problem Major depressive disorder, recurrent, moderate F33.1 Active 61273332 Problem Dementia with behavioral disturbance, unspecified dementia type F03.91 Active 8136915854361 Problem Mood disorder F39 Active 20858867 Problem Other chronic pain G89.29 Active 02315309 Problem Anxiety F41.9 Active 11641632 Problem Unsteady gait R26.81 Active 26564783 Problem History of brain shunt Z98.2 Active 027528411 Problem PTSD (post-traumatic stress disorder) F43.10 Active 50202303 Problem Sleep apnea, unspecified type G47.30 Active 21337838 Problem Degenerative brain disorder G31.9 Active 88383016 Problem Depressive disorder, not elsewhere classified F32.9 Active 65763016 Problem Other chronic pain G89.29 Active 91875618 ALLERGIES No Information ENCOUNTERS Encounter Location Date Diagnosis [facility] [id number] [address] Feb, [facility] [id number] [address] Feb, Other chronic pain G89.29 and Pain in right knee M25.561 [facility] [id number] [place] [address] 75823- 8888 Feb, PTSD (post-traumatic stress disorder) F43.10 [facility] [id number] [address] Feb, [facility] [address] [id number] Jan, Dementia with behavioral disturbance, unspecified dementia type F03.91 ; Other chronic pain G89.29 and Plantar fasciitis M72.[address] [facility] [address] [id number] Jan, Daily headache R51 ; History of brain shunt Z98.2 ; Plantar fasciitis of left foot M72.2 ; Pain in right knee M25.561 and Pain in left knee M25.562 [facility] [id number] [place] [address] 17065- 4789 Jan, [facility] [id number] [place] [address] 61137- 0332 Jan, Pain in right knee M25.561 [facility] [id number] [place] [address] 11702- 5703 Jan, [facility] [id number] [place] [address] 99774- 7044 Jan, [facility] [id number] [place] [address] 66393- 3687 Jan, [facility] [id number] [place] [address] 29181- 8287 December, Other chronic pain G89.[address] [facility] [address] [id number] December, Pain in left knee M25.562 ; Pain in right leg M79.604 ; Other chronic pain G89.29 ; Localized edema R60.0 and PTSD (post-traumatic stress disorder) F43.10 [facility] [id number] [place] [address] 09701- 7810 December, [facility] [id number] [place] [address] 94828- 9326 December, PTSD (post-traumatic stress disorder) F43.10 [facility] [id number] [place] [address] 16671- 2495 December, [facility] [id number] [place] [address] 40953- 3229 December, [facility] [id number] [place] [address] 60327- 3472 December, Depressive disorder, not elsewhere classified F32.9 and Cognitive change R41.89 [facility] [id number] [place] [address] 15056- 9282 Nov, Major depressive disorder, recurrent, moderate F33.1 [facility] [id number] [place] [address] 16787- 6851 Nov, [facility] [id number] [place] [address] 14681- 8941 Nov, [facility] [id number] [place] [address] 25785- 9117 Nov, [facility] [id number] [place] [address] 36982- 4828 Nov, [facility] [id number] [place] [address] 30589- 6420 Nov, Mood disorder F39 [facility] [id number] [place] [address] 61110- 0329 Nov, Depressive disorder, not elsewhere classified F32.9 and Cognitive change R41.89 [facility] [id number] [place] [address] 46419- 9847 Nov, [facility] [id number] [place] [address] 07986- 7576 Nov, [facility] [address] [id number] Oct, Tear of skin of plantar aspect of right foot, initial encounter S91.311A [facility] [address], [place] [address] 5[address] Oct, [facility] [id number] [address] 25[address] Oct, [facility] [id number] [id number] Oct, [facility] [id number] [id number] Oct, [facility] [id number] [id number] Sep, [facility] [id number] [id number] Sep, [facility] [id number] [id number] Sep, [facility] [id number] [id number] Sep, [facility] [place] [facility] [address], [place] [address] 111[address] Sep, [facility] [place] [facility] [address], [place] [address] 2[address] Sep, Other chronic pain G89.29 and Pain in left knee M25.562 [facility] [address], [place] [address] Sep, [facility] [address] [id number] Sep, Plantar fasciitis of left foot M72.2 and Pain in right knee M25.561 [facility] [id number] [id number] Aug, [facility] [place] [facility] [address], [place] [address] 1786 Aug, [facility] [facility] [address], [place] [address]- 0037 Aug, [facility] [facility] [address], [place] [address] 4788 Aug, Chronic daily headache R51 [facility] [address] [facility] [id number], [place] [address]46 Aug, [facility] [address] [address] Aug, Edema, unspecified type R60.9 ; Weight gain R63.5 and Sleep apnea, unspecified type G47.30 [facility] [address] [id number] Jul, Acute pain of left knee M25.562 and Plantar fasciitis of left foot M72.2 [facility] [address] [id number], [place] [address] Jul, [facility] [address] [id number] Jul, Plantar fasciitis of left foot M72.2 and Chronic daily headache R51 [facility] [address] [id number] [id number] Jul, [facility] [address] [id number] [id number] Jun, [facility] [address] [facility] [id number], [place] [address]- 1106 Jun, [facility] [address] [id number][place] [id number] Jun, [facility] [address] [id number] [address] Jun, [facility] [address] [id number] [id number] May, [facility] [address] [id number] [id number] May, [facility] [address] [facility] [id number], [place] [address]- 2546 May, Stress incontinence of urine N39.3 [facility] [address] [id number] [id number] May, [facility] [address] [id number] May, Encounter for examination for admission to snf Z02.2 ; Toxoplasmosis B58.9 ; Seizures R56.9 ; Major depressive disorder, recurrent, moderate F33.1 ; Degenerative brain disorder G31.9 and Unsteady gait R26.81 [facility] [id number] [place] [address] 88007- 2399 May, [facility] [address] [address]- 7682 May, Mood disorder F39 [facility] [id number] [place] [address] 842577- 1087 May, [facility] [id number] [place] [address] 55088- 9389 Apr, [facility] [id number] [place] [address] 09379- 8409 Mar, [facility] [id number] [place] [address] 72558- 3366 Mar, [facility] [id number] [place] [address] 34358- 3273 Mar, [facility] [id number] [place] [address] 62852- 9334 Mar, [facility] [id number] [place] [address] 87577- 2881 Mar, [facility] [id number] [place] [address] 59125- 2211 Mar, Stress incontinence of urine N39.3 [facility] [id number] [place] [address] [id number] Mar, [facility] [id number] [place] [address] 36955323- 8860 Feb, [facility] [id number] [place] [address] 69689- 3033 Feb, [facility] [address] [place] [address]- 7423 Feb, [facility] [address] [facility] [id number] [place] [address]- 3964 Feb, [facility] [address] [facility] [id number] [place] [address]- 7883 Feb, [facility] [address] [facility] [id number] [place] [address]- 4235 Feb, [facility] [address] [facility] [id number] [place] [address]- 3826 Feb, [facility] [address] [facility] [id number] [place] [address]- 6313 Jan, [facility] [address] [facility] [id number] [place] [address]- 8910 Jan, [facility] [address] [place] [address]- 8052 Jan, [facility] [address] [facility] [id number] [place] [address]- 0184 Jan, [facility] [address] [place] [address]- 5787 Jan, [facility] [id number] [place] [address]- 2965 Jan, [facility] [address] [place] [address]- 9378 Jan, [facility] [id number], [place] [address]- 5311 Jan, General weakness R53.1 and Dementia with behavioral disturbance, unspecified dementia type F03.91 [facility] [id number] [place] [address]- 3720 December, [facility] [id number] [place] [address]- 1669 December, Other chronic pain G89.29 [facility] [id number], [place] [address]- 7061 December, [facility] [id number] [place] [address] 32933- 1064 December, Unsteady gait R26.81 ; Generalized weakness R53.1 ; Unspecified mental disorder due to known physiological condition F09 and Generalized headaches R51 [facility] [id number] [place] [address] 41213- 3011 December, [facility] [id number] [place] [address] 09146- 2434 Nov, Anxiety F41.9 [facility] [id number] [place] [address] 29747- 0391 Nov, Mood disorder F39 [facility] [id number] [place] [address] 78894- 3536 Oct, [facility] [id number] [place] [address] 23001- 9976 Oct, Anxiety F41.9 [facility] [id number] [place] [address] 64087- 4802 Oct, Other chronic pain G89.29 [facility] [id number] [place] [address] 49126- 6529 Sep, Other chronic pain G89.29 ; Pain in left knee M25.562 ; Pain in right knee M25.561 and Anxiety F41.9 [facility] [id number] [place] [address] 05479- 9559 Sep, MDD (major depressive disorder), recurrent episode, mild F33.0 ; Degenerative brain disorder G31.9 and Other mcc (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 Z79.899 [facility] [id number] [place] [address] 95411- 7607 Sep, [facility] [id number] [place] [address] 82445- 3413 Sep, [facility] [address] [place] [address] 67296- 5444 Sep, Mood disorder F39 ; Pain of left leg M79.605 and Pain in right leg M79.604 [facility] [id number] [place] [address] 42349 2546 14 Sep, 2016 Seizures R56.9 [facility] [id number] [place] [address] 38901 2546 Sep, [facility] [id number] [place] [address] 51900- 2546 Sep, [facility] [id number] [place] [address] 35811- 4896 Sep, [facility] [id number] [place] [address] 09006- 3706 Aug, Bronchitis J40 [facility] [id number] [place] [address] 48684- 5940 Aug, Bronchitis J40 and Encounter for drug screening Z02.83 [facility] [id number] [place] [address] 98113- 0843 Aug, [facility] [id number] [place] [address] 37372- 7027 Aug, Seizures R56.9 [facility] [id number] [place] [address] 79233 2546 Aug, Seizures R56.9 [facility] [id number] [place] [address] 08572- 2540 Aug, Major depressive disorder, recurrent, moderate F33.1 and Seizures R56.9 [facility] [id number] [place] [address] 72646 2546 Aug, [facility] [id number] [place] [address] 22170- 8833 Aug, [facility] [address], [place] [address]- 5876 Aug, Major depressive disorder, recurrent, moderate F33.1 and Seizures R56.9 [facility] [id number] [place] [address]- [address]39 Jul, Major depressive disorder, recurrent, moderate F33.1 and Degenerative brain disorder G31.9 [facility] [id number] [place] [address] 65118- 6503 Jul, Seizures R56.9 [facility] [id number] [place] [address] 022389- 7634 Apr, [facility] [id number] [place] [address] 46151- 9645 Apr, Major depressive disorder, recurrent, moderate F33.1 ; Anxiety F41.9 and Degenerative brain disorder G31.9 [place] [id number] [place] [address] 97798- 1623 Apr, Mood disorder F39 [facility] [facility] [id number] [place] [address] 92464- 9633 Apr, Arthritis M19.90 [place] [facility] [id number] [place] [address] 54627- 4639 Mar, Arthritis M19.90 ; Degenerative brain disorder G31.9 and Nonintractable generalized idiopathic epilepsy without status epilepticus G40.309 [facility] [id number] [place] [address] 24066- 7504 Feb, IMMUNIZATIONS No Known Immunizations SOCIAL HISTORY Never Assessed REASON FOR VISIT c/o constipation PLAN OF CARE VITAL SIGNS MEDICATIONS Unknown Medications RESULTS No Results PROCEDURES No Known procedures INSTRUCTIONS MEDICATIONS ADMINISTERED No Known Medications MEDICAL (GENERAL) HISTORY Type Description Date Medical History Toxoplasmosis Medical History migraine Medical History dementia Medical History depression Medical History alzheimers disease Medical History epilepsy Medical History COPD Surgical History cholecystectomy Surgical History appendectomy Surgical History 27 brain surgeries including shunt, [place] Surgical History neck fusion 09/26, 09/28 Surgical History right hand surgery Hospitalization History surgeries Hospitalization History seizures 12/2015
--- OUTSIDE RECORDS SUMMARY | 2018-07-01 14:11 | XMS REPORT ---
Author Author ESTEPHANIA IVAN Organization [facility] Address [address] [place] [address] Care Team Providers Care Nursery Manager Name Role Phone ESTEPHANIA IVAN Unavailable PROBLEMS Type Condition ICD9-CM Code NYC39-QD Code Onset Dates Condition Status SNOMED Code Problem Unspecified mental disorder due to known physiological condition F09 Active 417668286 Problem Major depressive disorder, recurrent, moderate F33.1 Active 76550977 Problem Dementia with behavioral disturbance, unspecified dementia type F03.91 Active 0281920168626 Problem Mood disorder F39 Active 08171694 Problem Other chronic pain G89.29 Active 12295612 Problem Anxiety F41.9 Active 28202907 Problem Unsteady gait R26.81 Active 60925056 Problem History of brain shunt Z98.2 Active 607592158 Problem PTSD (post-traumatic stress disorder) F43.10 Active 51806690 Problem Sleep apnea, unspecified type G47.30 Active 93249197 Problem Degenerative brain disorder G31.9 Active 37042641 Problem Depressive disorder, not elsewhere classified F32.9 Active 85175932 Problem Other chronic pain G89.29 Active 26877219 ALLERGIES No Information ENCOUNTERS Encounter Location Date Diagnosis [facility] [id number] [place] [address] 59323- 0044 Apr, [facility] [address] [place] [address] 17726- 9169 Feb, PTSD (post-traumatic stress disorder) F43.10 [facility] [address] [place] [address] 25927- 5260 Feb, PTSD (post-traumatic stress disorder) F43.10 [facility] [id number] [address] 5[address] Feb, Other chronic pain G89.29 and Pain in right knee M25.561 [facility] [address] [address] 2546 Feb, PTSD (post-traumatic stress disorder) F43.10 [facility] [address] [address] 2546 Feb, [facility] [address] [place] [id number] Jan, Dementia with behavioral disturbance, unspecified dementia type F03.91 ; Other chronic pain G89.29 and Plantar fasciitis M72.2 [facility] [address] [place] [id number] Jan, Daily headache R51 ; History of brain shunt Z98.2 ; Plantar fasciitis of left foot M72.2 ; Pain in right knee M25.561 and Pain in left knee M25.562 [facility] [address] [place] [address] 15197- 4281 14 Jan, 2018 [facility] [id number] [place] [address] 23943 2547 Jan, Pain in right knee M25.561 [facility] [id number] [place] [address] 45078 2546 Jan, [facility] [id number] [place] [address] 89192 2545 Jan, [facility] [address] [place] [address] 78640 2546 Jan, [facility] [address] [place] [address] 98266 2546 December, Other chronic pain G89.[address] [facility] [address] [id number] December, Pain in left knee M25.562 ; Pain in right leg M79.604 ; Other chronic pain G89.29 ; Localized edema R60.0 and PTSD (post-traumatic stress disorder) F43.10 [facility] [id number] [address] December, [facility] [id number] [place] [address] 78893- 8107 December, PTSD (post-traumatic stress disorder) F43.10 [facility] [id number] [address] 5698 December, [facility] [id number] [place] [address] 05542- 1116 December, [facility] [id number] [place] [address] 35258- 9423 December, Depressive disorder, not elsewhere classified F32.9 and Cognitive change R41.89 [facility] [id number] [place] [address] 23447- 5240 Nov, Major depressive disorder, recurrent, moderate F33.1 [facility] [id number] [place] [address] 90698- 0602 Nov, [facility] [id number] [place] [address] 52802- 9273 Nov, [facility] [id number] [place] [address] 87433- 7322 Nov, [facility] [address] [place] [address] 62440- 5800 Nov, [facility] [address] [place] [address] 72773- 9372 Nov, Mood disorder F39 [facility] [address] [place] [address] 20841- 5208 Nov, Depressive disorder, not elsewhere classified F32.9 and Cognitive change R41.89 [facility] [address] [address] 0[address] Nov, [facility] [address] [place] [address] 75907- 0033 Nov, 2018 [facility] [address] [id number] Oct, Tear of skin of plantar aspect of right foot, initial encounter S91.311A [facility] [address] [address] Oct, [facility] [id number] [address] 06[address] Oct, [facility] [id number] [place] [address] [id number] Oct, [facility] [id number] [place] [address] [id number] Oct, [facility] [id number] [place] [address] [id number] Sep, [facility] [id number] [place] [address] [id number] Sep, [facility] [id number] [place] [address] [id number] Sep, [facility] [id number] [place] [address] [id number] Sep, [facility] [address] [address] Sep, [facility] [address] [address] Sep, Other chronic pain G89.29 and Pain in left knee M25.562 [facility] [id number], [place] [address] 2406 Sep, [facility] [address] [id number] Sep, Plantar fasciitis of left foot M72.2 and Pain in right knee M25.561 [facility] [address] [id number] [id number] Aug, [facility] [address] [address] 3652 Aug, [facility] [address] [facility] [id number] [address] 8466 Aug, [facility] [address] [facility] [id number], [place] [address] Aug, Chronic daily headache R51 [facility] [address] [facility] [id number], [place] [address] 7516 Aug, [facility] [place] [address] [id number] Aug, Edema, unspecified type R60.9 ; Weight gain R63.5 and Sleep apnea, unspecified type G47.[address] [facility] [address] [id number] Jul, Acute pain of left knee M25.562 and Plantar fasciitis of left foot M72.2 [facility] [id number], [place] [address] Jul, [facility] [address] [place] [id number] Jul, Plantar fasciitis of left foot M72.2 and Chronic daily headache R51 [facility] [address] [id number] [id number] Jul, [facility] [address] [id number] [id number] Jun, [facility] [address] [facility] [id number], [place] [address] 2546 Jun, [facility] [address] [id number] [id number] Jun, [facility] [address] [id number] [id number] Jun, [facility] [address] [id number] [id number] May, [facility] [address] [id number] [id number] May, [facility] [address] [address] May, Stress incontinence of urine N39.3 [facility] [id number] [place] [address] [id number] May, [facility] [address] [id number] May, Encounter for examination for admission to long-term Z02.2 ; Toxoplasmosis B58.9 ; Seizures R56.9 ; Major depressive disorder, recurrent, moderate F33.1 ; Degenerative brain disorder G31.9 and Unsteady gait R26.81 [facility] [id number] [place] [address] 56289- 7567 May, [facility] [id number] [place] [address] 63389- 9535 May, Mood disorder F39 [facility] [id number] [place] [address] 38197- 5702 May, [facility] [id number] [place] [address] 65690- 0884 Apr, [facility] [id number] [place] [address] 67705- 2218 Mar, [facility] [id number] [place] [address] 83695- 9221 Mar, [facility] [id number] [place] [address] 62413- 4599 Mar, [facility] [address] [place] [address] 79200- 5604 Mar, [facility] [id number] [place] [address] 16774- 3797 Mar, [facility] [address], [place] [address] 3316 Mar, Stress incontinence of urine N39.3 [facility] [id number] [place] [address] [id number] Mar, [facility] [place] [facility] [address] [id number] [place] [address]- 2454 Feb, [facility] [place] [facility] [address] [id number] [place] [address]- 9130 Feb, [facility] [place] [facility] [address] [facility] [id number] [place] [address]- 7548 Feb, [facility] [place] [facility] [address] [id number] [place] [address]- 2249 Feb, [facility] [place] [facility] [address] [id number] [place] [address]- 7340 Feb, [facility] [place] [facility] [address] [facility] [id number] [place] [address]- 9597 Feb, [facility] [place] [facility] [address] [facility] [id number] [place] [address]- 6100 Feb, [facility] [place] [facility] [address] [facility] [id number] [place] [address]- 9306 Jan, [facility] [place] [facility] [address] [facility] [id number] [place] [address]- 1209 Jan, [facility] [place] [facility] [address] [facility] [id number] [place] [address]- 5601 Jan, [facility] [place] [facility] [address] [facility] [id number] [place] [address]- 5716 Jan, [facility] [place] [facility] [address] [facility] [id number] [place] [address]- 3418 Jan, [facility] [place] [facility] [address] [facility] [id number] [place] [address]- 7659 Jan, [facility] [place] [facility] [address] [facility] [id number] [place] 2930 Jan, [facility] [place] [facility] [address] [facility] [id number] [place] 9737 Jan, General weakness R53.1 and Dementia with behavioral disturbance, unspecified dementia type F03.91 [facility] [id number], [place] [address]- 8516 December, [facility] [id number] [place] [address]30 December, Other chronic pain G89.29 [facility] [id number] [place] [address] 73748- 4017 December, [facility] [id number] [place] [address] 96728- 1422 December, Unsteady gait R26.81 ; Generalized weakness R53.1 ; Unspecified mental disorder due to known physiological condition F09 and Generalized headaches R51 [facility] [id number] [place] [address] 62380- 8447 December, [facility] [id number] [place] [address] 18997- 1498 Nov, Anxiety F41.9 [facility] [id number] [place] [address] 40042- 3358 Nov, Mood disorder F39 [facility] [id number] [place] [address] 98366- 1328 Oct, [facility] [address] [place] [address] 42901- 7511 Oct, Anxiety F41.9 [facility] [id number] [place] [address] 55585- 9794 Oct, Other chronic pain G89.29 [facility] [id number] [place] [address] 44327- 8824 Sep, Other chronic pain G89.29 ; Pain in left knee M25.562 ; Pain in right knee M25.561 and Anxiety F41.9 [facility] [address], [place] [address]- 3532 Sep, MDD (major depressive disorder), recurrent episode, mild F33.0 ; Degenerative brain disorder G31.9 and 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 [facility] [id number] [place] [address] 73124- 1906 Sep, [facility] [id number] [place] [address] 84018- 3136 Sep, [facility] [address] 48968- 8733 Sep, Mood disorder F39 ; Pain of left leg M79.605 and Pain in right leg M79.604 [facility] [address] 90294- 7686 Sep, Seizures R56.9 [facility] [id number] [place] [address] 50986- 6606 Sep, [facility] [address] 77058- 6494 Sep, [facility] [id number] [place] [address] 86852- 2761 Sep, [facility] [id number] [place] [address] 53496- 7257 Aug, Bronchitis J40 [facility] [id number] [place] [address] 94943- 6878 Aug, Bronchitis J40 and Encounter for drug screening Z02.83 [facility] [id number] [place] [address] 76465- 3119 Aug, [facility] [id number] [place] [address] 35482- 5645 Aug, Seizures R56.9 [facility] [id number] [place] [address] 31028- 2546 Aug, Seizures R56.9 [facility] [address] 450613- 7240 Aug, Major depressive disorder, recurrent, moderate F33.1 and Seizures R56.9 [facility] [address] [place] [address] 94117- 8265 Aug, [facility] [id number] [place] [address] 47641- 3508 Aug, [facility] [id number] [place] [address] 85122- 0131 Aug, Major depressive disorder, recurrent, moderate F33.1 and Seizures R56.9 [facility] [id number] [place] [address] 98222- 5192 Jul, Major depressive disorder, recurrent, moderate F33.1 and Degenerative brain disorder G31.9 [facility] [id number] [place] [address] 09005- 7621 Jul, Seizures R56.9 [place] [id number] [place] [address] 52089- 4826 Apr, [facility] [id number] [place] [address] 64154- 8706 Apr, Major depressive disorder, recurrent, moderate F33.1 ; Anxiety F41.9 and Degenerative brain disorder G31.9 [address] [place] [address] [place] [address] 03342- 8163 Apr, Mood disorder F39 [place] [id number] [place] [address] 50623- 3836 Apr, Arthritis M19.90 [facility] [address] [place] [address] 13372- 1847 Mar, Arthritis M19.90 ; Degenerative brain disorder G31.9 and Nonintractable generalized idiopathic epilepsy without status epilepticus G40.309 [place] [address] [place] [address] 98008- 3963 Feb, IMMUNIZATIONS No Known Immunizations SOCIAL HISTORY Never Assessed REASON FOR VISIT Behavioral Health appt PLAN OF CARE VITAL SIGNS MEDICATIONS Unknown Medications RESULTS No Results PROCEDURES No Known procedures INSTRUCTIONS MEDICATIONS ADMINISTERED No Known Medications MEDICAL (GENERAL) HISTORY Type Description Date Medical History Toxoplasmosis Medical History migraine Medical History dementia Medical History depression Medical History alzheimers disease Medical History epilepsy Medical History COPD Surgical History cholecystectomy Surgical History appendectomy Surgical History 27 brain surgeries including shunt, Twining [place] Surgical History neck fusion 09/26, 09/28 Surgical History right hand surgery Hospitalization History surgeries Hospitalization History seizures 12/2015
--- OUTSIDE RECORDS SUMMARY | 2018-07-01 14:11 | XMS REPORT ---
Author Author ESTEPHANIA IVAN Organization [facility] Address [address] [place] [address] Care Team Providers Care Fund Accounting Manager Name Role Phone ESTEPHANIA IVAN Unavailable PROBLEMS Type Condition ICD9-CM Code ATH79-ND Code Onset Dates Condition Status SNOMED Code Problem Unspecified mental disorder due to known physiological condition F09 Active 555445181 Problem Major depressive disorder, recurrent, moderate F33.1 Active 85406077 Problem Dementia with behavioral disturbance, unspecified dementia type F03.91 Active 1012830377982 Problem Mood disorder F39 Active 69382261 Problem Other chronic pain G89.29 Active 35620435 Problem Anxiety F41.9 Active 56273425 Problem Unsteady gait R26.81 Active 67210287 Problem History of brain shunt Z98.2 Active 530036484 Problem PTSD (post-traumatic stress disorder) F43.10 Active 03630087 Problem Sleep apnea, unspecified type G47.30 Active 77555628 Problem Degenerative brain disorder G31.9 Active 16698607 Problem Depressive disorder, not elsewhere classified F32.9 Active 64730549 Problem Other chronic pain G89.29 Active 07797928 ALLERGIES No Information ENCOUNTERS Encounter Location Date Diagnosis [facility] [id number] [address] Feb, [facility] [id number], [place] [address] Feb, Other chronic pain G89.29 and Pain in right knee M25.561 [facility] [id number] [place] [address] 71233- 3946 Feb, PTSD (post-traumatic stress disorder) F43.10 [facility] [id number], [place] [address] Feb, [facility] [address] [id number] Jan, Dementia with behavioral disturbance, unspecified dementia type F03.91 ; Other chronic pain G89.29 and Plantar fasciitis M72.[address] [facility] [address] [id number] Jan, Daily headache R51 ; History of brain shunt Z98.2 ; Plantar fasciitis of left foot M72.2 ; Pain in right knee M25.561 and Pain in left knee M25.562 [facility] [id number] [place] [address] 00515- 2517 Jan, [facility] [id number] [place] [address] 22679- 9097 Jan, Pain in right knee M25.561 [facility] [id number] [place] [address] 42864- 5995 Jan, [facility] [id number] [place] [address] 67299- 4823 Jan, [facility] [id number] [place] [address] 97072- 4651 Jan, [facility] [id number] [place] [address] 40739- 4482 December, Other chronic pain G89.[address] [facility] [address] [id number] December, Pain in left knee M25.562 ; Pain in right leg M79.604 ; Other chronic pain G89.29 ; Localized edema R60.0 and PTSD (post-traumatic stress disorder) F43.10 [facility] [id number] [place] [address] 58683- 2027 December, [facility] [id number] [place] [address] 35857- 5194 December, PTSD (post-traumatic stress disorder) F43.10 [facility] [id number] [place] [address] 79588- 1134 December, [facility] [address] [place] [address] 56698- 8401 December, [facility] [id number] [place] [address] 38554- 9804 December, Depressive disorder, not elsewhere classified F32.9 and Cognitive change R41.89 [facility] [id number] [place] [address] 68255- 4677 Nov, Major depressive disorder, recurrent, moderate F33.1 [facility] [id number] [place] [address] 86267- 9209 Nov, [facility] [id number] [place] [address] 35218- 8612 Nov, [facility] [id number] [place] [address] 25053- 7733 Nov, [facility] [id number] [place] [address] 15084- 7175 Nov, [facility] [id number] [place] [address] 22135- 8036 Nov, Mood disorder F39 [facility] [id number] [place] [address] 82112- 4902 Nov, Depressive disorder, not elsewhere classified F32.9 and Cognitive change R41.89 [facility] [address] [place] [address] 56260- 6818 Nov, [facility] [address] [place] [address] 01180- 6578 Nov, [facility] [address] [place] [id number] Oct, Tear of skin of plantar aspect of right foot, initial encounter S91.311A [facility] [address], [place] [address] 0480 Oct, [facility] [id number], [place] [address] 2546 Oct, [facility] [id number] [id number] Oct, [facility] [id number] [id number] Oct, [facility] [id number] [id number] Sep, [facility] [id number] [id number] Sep, [facility] [id number] [id number] Sep, [facility] [address] [id number] [id number] Sep, [facility] [address], [place] [address] Sep, [facility] [address], [place] [address] 0706 Sep, Other chronic pain G89.29 and Pain in left knee M25.562 [facility] [address], [place] [address] 9726 Sep, [facility] [address] [id number] Sep, Plantar fasciitis of left foot M72.2 and Pain in right knee M25.561 [facility] [id number] [id number] Aug, [facility] [address], [place] [address] 8836 Aug, [facility] [address], [place] [address]- 9640 Aug, [facility] [address], [place] [address] 3688 Aug, Chronic daily headache R51 [facility] [address] [facility] [id number], [place] [address]- 2546 Aug, [facility] [address] [id number] Aug, Edema, unspecified type R60.9 ; Weight gain R63.5 and Sleep apnea, unspecified type G47.30 [facility] [address] [address] Jul, Acute pain of left knee M25.562 and Plantar fasciitis of left foot M72.2 [facility] [address] [id number], [place] [address] Jul, [facility] [address] [id number] Jul, Plantar fasciitis of left foot M72.2 and Chronic daily headache R51 [facility] [address] [id number] [id number] Jul, [facility] [address] [id number] [id number] Jun, [facility] [address] [facility] [id number], [place] [address]- 4216 Jun, [facility] [address] [id number] [id number] Jun, [facility] [address] [id number] [address] Jun, [facility] [address] [id number] [id number] May, [facility] [address] [id number] [id number] May, [facility] [address] [facility] [id number], [place] [address]- 2546 May, Stress incontinence of urine N39.3 [facility] [address] [id number] [id number] May, [facility] [address] [id number] May, Encounter for examination for admission to [facility] Z02.2 ; Toxoplasmosis B58.9 ; Seizures R56.9 ; Major depressive disorder, recurrent, moderate F33.1 ; Degenerative brain disorder G31.9 and Unsteady gait R26.81 [facility] [id number] [place] [address] 19336- 9431 May, [facility] [address] [address]- 7345 May, Mood disorder F39 [facility] [id number] [place] [address] 334232- 6560 May, [facility] [id number] [place] [address] 34073- 7117 Apr, [facility] [id number] [place] [address] 13123- 0193 Mar, [facility] [id number] [place] [address] 36405- 5803 Mar, [facility] [id number] [place] [address] 24224- 7334 Mar, [facility] [id number] [place] [address] 37817- 4012 Mar, [facility] [id number] [place] [address] 95445- 8497 Mar, [facility] [id number] [place] [address] 71306- 5609 Mar, Stress incontinence of urine N39.3 [facility] [id number] [place] [address] [id number] Mar, [facility] [id number] [place] [address] 01557625- 3533 Feb, [facility] [id number] [place] [address] 08699- 7651 Feb, [facility] [address] [place] [address]- 8029 Feb, [facility] [address] [facility] [id number] [place] [address]- 8076 Feb, [facility] [address] [facility] [id number] [place] [address]- 9883 Feb, [facility] [address] [facility] [id number] [place] [address]- 3443 Feb, [facility] [address] [facility] [id number] [place] [address]- 8937 Feb, [facility] [address] [facility] [id number] [place] [address]- 9519 Jan, [facility] [address] [facility] [id number] [place] [address]- 4813 Jan, [facility] [address] [place] [address]- 6668 Jan, [facility] [address] [facility] [id number] [place] [address]- 8256 Jan, [facility] [address] [place] [address]- 7970 Jan, [facility] [address] [id number] [place] [address]- 7942 Jan, [facility] [address] [place] [address]- 9820 Jan, [facility] [id number], [place] [address]- 3626 Jan, General weakness R53.1 and Dementia with behavioral disturbance, unspecified dementia type F03.91 [facility] [address] [id number] [place] [address]- 9042 December, [facility] [address] [id number] [place] [address]- 0893 December, Other chronic pain G89.29 [facility] [id number], [place] [address]- 8845 December, [facility] [id number] [place] [address] 84291- 4740 December, Unsteady gait R26.81 ; Generalized weakness R53.1 ; Unspecified mental disorder due to known physiological condition F09 and Generalized headaches R51 [facility] [id number] [place] [address] 20424- 0659 December, [facility] [id number] [place] [address] 27383- 8248 Nov, Anxiety F41.9 [address] [facility] [id number] [place] [address] 40560- 5355 Nov, Mood disorder F39 [address] [facility] [id number] [place] [address] 07942- 4069 Oct, [address] [facility] [id number] [place] [address] 15154- 4121 Oct, Anxiety F41.9 [facility] [facility] [id number] [place] [address] 17078- 9022 Oct, Other chronic pain G89.29 [facility] [id number] [place] [address] 64117- 6676 Sep, Other chronic pain G89.29 ; Pain in left knee M25.562 ; Pain in right knee M25.561 and Anxiety F41.9 [address] [facility] [id number] [place] [address] 40850- 4825 Sep, MDD (major depressive disorder), recurrent episode, mild F33.0 ; Degenerative brain disorder G31.9 and Other mcfp (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 Z79.899 [facility] [id number] [place] [address] 13808- 9626 Sep, [address] [facility] [id number] [place] [address] 96359- 3085 Sep, [facility] [address] [place] [address] 19921- 7458 Sep, Mood disorder F39 ; Pain of left leg M79.605 and Pain in right leg M79.604 [facility] [address] [place] [address] 61735 2546 14 Sep, 2016 Seizures R56.9 [facility] [id number] [place] [address] 54771 2546 Sep, [facility] [id number] [place] [address] 19955- 2546 Sep, [facility] [id number] [place] [address] 06579- 3816 Sep, [facility] [id number] [place] [address] 17595- 1816 Aug, Bronchitis J40 [facility] [id number] [place] [address] 11821- 1558 Aug, Bronchitis J40 and Encounter for drug screening Z02.83 [facility] [id number] [place] [address] 40715- 9351 Aug, [facility] [address] [place] [address] 56105- 8095 Aug, Seizures R56.9 [facility] [id number] [place] [address] 83282 2546 Aug, Seizures R56.9 [facility] [id number] [place] [address] 27538- 2549 Aug, Major depressive disorder, recurrent, moderate F33.1 and Seizures R56.9 [facility] [id number] [place] [address] 60691 2546 Aug, [facility] [id number] [place] [address] 30925- 3615 Aug, [address] [facility] [address] [place] [address] 42358- 6916 Aug, Major depressive disorder, recurrent, moderate F33.1 and Seizures R56.9 [address] [place] [address] 33806- 6375 Jul, Major depressive disorder, recurrent, moderate F33.1 and Degenerative brain disorder G31.9 [address] [facility] [id number] [place] [address] 65672- 9715 Jul, Seizures R56.9 [address] [facility] [id number] [place] [address] 52130- 3656 Apr, [place] [facility] [id number] [place] [address] 82316- 3912 Apr, Major depressive disorder, recurrent, moderate F33.1 ; Anxiety F41.9 and Degenerative brain disorder G31.9 [address] [facility] [address] [place] [address] 98097- 4302 Apr, Mood disorder F39 [place] [facility] [address] [place] [address] 02113- 0456 Apr, Arthritis M19.90 [place] [facility] [address] [place] [address] 43957- 2297 Mar, Arthritis M19.90 ; Degenerative brain disorder G31.9 and Nonintractable generalized idiopathic epilepsy without status epilepticus G40.309 [address] [facility] [id number] [place] [address] 88045- 9972 Feb, IMMUNIZATIONS No Known Immunizations SOCIAL HISTORY [...] Surgical History 27 brain surgeries including shunt, [place] Surgical History neck fusion 09/26, 09/28 Surgical History right hand surgery Hospitalization History surgeries Hospitalization History seizures 12/2015
--- OUTSIDE RECORDS SUMMARY | 2018-07-01 14:12 | XMS REPORT ---
Author Author ESTEPHANIA IVAN Organization [facility] Address [address] [place] [address] Care Team Providers Care Architecture Analyst Name Role Phone ESTEPHANIA IVAN Unavailable PROBLEMS Type Condition ICD9-CM Code HBX02-SF Code Onset Dates Condition Status SNOMED Code Problem Unspecified mental disorder due to known physiological condition F09 Active 546011059 Problem Major depressive disorder, recurrent, moderate F33.1 Active 08563407 Problem Dementia with behavioral disturbance, unspecified dementia type F03.91 Active 9320695014047 Problem Mood disorder F39 Active 03195593 Problem Other chronic pain G89.29 Active 49336878 Problem Anxiety F41.9 Active 82146062 Problem Unsteady gait R26.81 Active 95885769 Problem History of brain shunt Z98.2 Active 925001552 Problem PTSD (post-traumatic stress disorder) F43.10 Active 34124949 Problem Sleep apnea, unspecified type G47.30 Active 91549196 Problem Degenerative brain disorder G31.9 Active 34936345 Problem Depressive disorder, not elsewhere classified F32.9 Active 98162162 Problem Other chronic pain G89.29 Active 25548812 ALLERGIES No Information ENCOUNTERS Encounter Location Date Diagnosis [facility] [id number] [address] Feb, [facility] [id number] [address] Feb, Other chronic pain G89.29 and Pain in right knee M25.561 [facility] [id number] [place] [address] 87457- 6169 Feb, PTSD (post-traumatic stress disorder) F43.10 [facility] [id number] [address] Feb, [facility] [address] [id number] Jan, Dementia with behavioral disturbance, unspecified dementia type F03.91 ; Other chronic pain G89.29 and Plantar fasciitis M72.[address] [facility] [address] [id number] Jan, Daily headache R51 ; History of brain shunt Z98.2 ; Plantar fasciitis of left foot M72.2 ; Pain in right knee M25.561 and Pain in left knee M25.562 [facility] [id number] [place] [address] 68849- 4866 Jan, [facility] [id number] [place] [address] 15940- 0921 Jan, Pain in right knee M25.561 [facility] [id number] [place] [address] 64784- 3011 Jan, [facility] [id number] [place] [address] 20872- 2979 Jan, [facility] [id number] [place] [address] 49821- 7390 Jan, [facility] [id number] [place] [address] 69256- 0330 December, Other chronic pain G89.[address] [facility] [address] [id number] December, Pain in left knee M25.562 ; Pain in right leg M79.604 ; Other chronic pain G89.29 ; Localized edema R60.0 and PTSD (post-traumatic stress disorder) F43.10 [facility] [id number] [place] [address] 26801- 3416 December, [facility] [id number] [place] [address] 76459- 6023 December, PTSD (post-traumatic stress disorder) F43.10 [facility] [id number] [place] [address] 06371- 9857 December, [facility] [id number] [place] [address] 34876- 0089 December, [facility] [id number] [place] [address] 54782- 5517 December, Depressive disorder, not elsewhere classified F32.9 and Cognitive change R41.89 [facility] [id number] [place] [address] 98594- 2631 Nov, Major depressive disorder, recurrent, moderate F33.1 [facility] [id number] [place] [address] 83930- 5484 Nov, [facility] [id number] [place] [address] 12022- 8560 Nov, [facility] [id number] [place] [address] 52855- 5197 Nov, [facility] [id number] [place] [address] 40266- 7834 Nov, [facility] [id number] [place] [address] 91031- 9938 Nov, Mood disorder F39 [facility] [id number] [place] [address] 25543- 0912 Nov, Depressive disorder, not elsewhere classified F32.9 and Cognitive change R41.89 [facility] [id number] [place] [address] 24167- 7365 Nov, [facility] [id number] [place] [address] 03648- 2300 Nov, [facility] [address] [place] [id number] Oct, Tear of skin of plantar aspect of right foot, initial encounter S91.311A [facility] [address], [place] [address] Oct, [facility] [id number], [place] [address] 25[address] Oct, [facility] [id number] [id number] Oct, [facility] [id number] [id number] Oct, [facility] [id number] [id number] Sep, [facility] [id number] [id number] Sep, [facility] [id number] [id number] Sep, [facility] [id number] [id number] Sep, [facility] [place] [address] [address] Sep, [facility] [place] [address], [place] [address] Sep, Other chronic pain G89.29 and Pain in left knee M25.562 [facility] [address], [place] [address] Sep, [facility] [address] [place] [id number] Sep, Plantar fasciitis of left foot M72.2 and Pain in right knee M25.561 [facility] [id number][place] [id number] Aug, [facility] [place] [address], [place] [address] 9036 Aug, [facility] [place] [address], [place] [address]- 7833 Aug, [facility] [place] [address], [place] [address] 1371 Aug, Chronic daily headache R51 [facility] [address] [facility] [id number], [place] [address] 2546 Aug, [facility] [address] [place] [id number] Aug, Edema, unspecified type R60.9 ; Weight gain R63.5 and Sleep apnea, unspecified type G47.30 [facility] [address] [place] [id number] Jul, Acute pain of left knee M25.562 and Plantar fasciitis of left foot M72.2 [facility] [address] [id number], [place] [address] Jul, [facility] [address] [place] [id number] Jul, Plantar fasciitis of left foot M72.2 and Chronic daily headache R51 [facility] [address] [id number] [id number] Jul, [facility] [address] [id number][place] [id number] Jun, [facility] [address] [facility] [id number], [place] [address] 0086 Jun, [facility] [address] [id number][place] [id number] Jun, [facility] [address] [id number][place] [id number] Jun, [facility] [address] [id number][place] [id number] May, [facility] [address] [id number][place] [id number] May, [facility] [address] [facility] [id number], [place] [address]- 2546 May, Stress incontinence of urine N39.3 [facility] [address] [id number][place] [id number] May, [facility] [address] [place] [id number] May, Encounter for examination for admission to [facility] Z02.2 ; Toxoplasmosis B58.9 ; Seizures R56.9 ; Major depressive disorder, recurrent, moderate F33.1 ; Degenerative brain disorder G31.9 and Unsteady gait R26.81 [facility] [id number] [place] [address] 87987- 6280 May, [facility] [address] [address]- 6259 May, Mood disorder F39 [facility] [id number] [place] [address] 232941- 1540 May, [facility] [id number] [place] [address] 29638- 4514 Apr, [facility] [id number] [place] [address] 35319- 8940 Mar, [facility] [id number] [place] [address] 14817- 2746 Mar, [facility] [id number] [place] [address] 08247- 2119 Mar, [facility] [id number] [place] [address] 52826- 8706 Mar, [facility] [id number] [place] [address] 81438- 9573 Mar, [facility] [id number] [place] [address] 10907- 5773 Mar, Stress incontinence of urine N39.3 [facility] [id number] [place] [address] [id number] Mar, [facility] [id number] [place] [address] [id number]- 3459 Feb, [facility] [id number] [place] [address] 22444- 9750 Feb, [facility] [address] [place] [address]- 7039 Feb, [facility] [address] [facility] [id number] [place] [address]- 6750 Feb, [facility] [address] [facility] [id number] [place] [address]- 8386 Feb, [facility] [address] [facility] [id number] [place] [address]- 9832 Feb, [facility] [address] [facility] [id number] [place] [address]- 0096 Feb, [facility] [address] [facility] [id number] [place] [address]- 8800 Jan, [facility] [address] [facility] [id number] [place] [address]- 3689 Jan, [facility] [address] [place] [address]- 3748 Jan, [facility] [address] [facility] [id number] [place] [address]- 1950 Jan, [facility] [address] [place] [address]- 0219 Jan, [facility] [id number] [place] [address]- 9685 Jan, [facility] [address] [place] [address]- 5815 Jan, [facility] [id number], [place] [address]- 1233 Jan, General weakness R53.1 and Dementia with behavioral disturbance, unspecified dementia type F03.91 [facility] [id number] [place] [address]- 2164 December, [facility] [id number] [place] [address]- 7350 December, Other chronic pain G89.29 [facility] [place] [id number], [place] [address]- 1236 December, [facility] [id number] [place] [address] 51112- 5704 December, Unsteady gait R26.81 ; Generalized weakness R53.1 ; Unspecified mental disorder due to known physiological condition F09 and Generalized headaches R51 [facility] [id number] [place] [address] 85331- 6131 December, [facility] [id number] [place] [address] 92492- 5263 Nov, Anxiety F41.9 [facility] [id number] [place] [address] 63734- 7850 Nov, Mood disorder F39 [facility] [id number] [place] [address] 33633- 5823 Oct, [facility] [id number] [place] [address] 23376- 7985 Oct, Anxiety F41.9 [facility] [id number] [place] [address] 91406- 7972 Oct, Other chronic pain G89.29 [facility] [id number] [place] [address] 89029- 6479 Sep, Other chronic pain G89.29 ; Pain in left knee M25.562 ; Pain in right knee M25.561 and Anxiety F41.9 [facility] [id number] [place] [address] 58662- 9004 Sep, MDD (major depressive disorder), recurrent episode, mild F33.0 ; Degenerative brain disorder G31.9 and Other prison (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 Z79.899 [facility] [id number] [place] [address] 89551- 9570 Sep, [facility] [id number] [place] [address] 93745- 9804 Sep, [facility] [address] [place] [address] 96511- 4988 Sep, Mood disorder F39 ; Pain of left leg M79.605 and Pain in right leg M79.604 [facility] [address] [place] [address] 47325 2546 14 Sep, 2016 Seizures R56.9 [facility] [id number] [place] [address] 90949 2546 Sep, [facility] [id number] [place] [address] 63046- 2546 Sep, [facility] [id number] [place] [address] 57500- 5306 Sep, [facility] [id number] [place] [address] 14443- 1796 Aug, Bronchitis J40 [facility] [id number] [place] [address] 33950- 3385 Aug, Bronchitis J40 and Encounter for drug screening Z02.83 [facility] [id number] [place] [address] 48651- 5048 Aug, [facility] [address] [place] [address] 30478- 4076 Aug, Seizures R56.9 [facility] [id number] [place] [address] 26219 2546 Aug, Seizures R56.9 [facility] [id number] [place] [address] 16056- 2549 Aug, Major depressive disorder, recurrent, moderate F33.1 and Seizures R56.9 [facility] [id number] [place] [address] 43416 2546 Aug, [facility] [id number] [place] [address] 74513- 4991 Aug, [facility] [address] [place] [address] 83224- 0901 Aug, Major depressive disorder, recurrent, moderate F33.1 and Seizures R56.9 [facility] [address] [place] [address] 32242- 0169 Jul, Major depressive disorder, recurrent, moderate F33.1 and Degenerative brain disorder G31.9 [facility] [id number] [place] [address] 11010- 8964 Jul, Seizures R56.9 [facility] [id number] [place] [address] 15372- 7979 Apr, [facility] [id number] [place] [address] 73369- 3818 Apr, Major depressive disorder, recurrent, moderate F33.1 ; Anxiety F41.9 and Degenerative brain disorder G31.9 [facility] [id number] [place] [address] 77212- 8180 Apr, Mood disorder F39 [facility] [id number] [place] [address] 44142- 2025 Apr, Arthritis M19.90 [facility] [id number] [place] [address] 38046- 0023 Mar, Arthritis M19.90 ; Degenerative brain disorder G31.9 and Nonintractable generalized idiopathic epilepsy without status epilepticus G40.309 [facility] [id number] [place] [address] 14593- 8618 Feb, IMMUNIZATIONS No Known Immunizations SOCIAL HISTORY Never Assessed REASON FOR VISIT Controlled Med Refill PLAN OF CARE VITAL SIGNS MEDICATIONS Medication Instructions Dosage Frequency Start Date End Date Duration Status [place] 10-325 MG Orally 3 times a day 1 tablet 8h Oct, 28 days Active RESULTS No Results PROCEDURES No Known procedures INSTRUCTIONS MEDICATIONS ADMINISTERED No Known Medications MEDICAL (GENERAL) HISTORY Type Description Date Medical History Toxoplasmosis Medical History migraine Medical History dementia Medical History depression Medical History alzheimers disease Medical History epilepsy Medical History COPD Surgical History cholecystectomy Surgical History appendectomy Surgical History 27 brain surgeries including shunt, [place] Surgical History neck fusion 09/26, 09/28 Surgical History right hand surgery Hospitalization History surgeries Hospitalization History seizures 12/2015
--- OUTSIDE RECORDS SUMMARY | 2018-07-01 14:12 | XMS REPORT ---
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 Name Role Phone ESTEPHANIA IVAN Unavailable PROBLEMS Type Condition ICD9-CM Code VVC30-ZU Code Onset Dates Condition Status SNOMED Code Problem Unspecified mental disorder due to known physiological condition F09 Active 376322239 Problem Major depressive disorder, recurrent, moderate F33.1 Active 04383647 Problem Dementia with behavioral disturbance, unspecified dementia type F03.91 Active 8495969019577 Problem Mood disorder F39 Active 51167999 Problem Other chronic pain G89.29 Active 70313488 Problem Anxiety F41.9 Active 81593568 Problem Unsteady gait R26.81 Active 29216341 Problem History of brain shunt Z98.2 Active 261937724 Problem PTSD (post-traumatic stress disorder) F43.10 Active 60874908 Problem Sleep apnea, unspecified type G47.30 Active 75827721 Problem Degenerative brain disorder G31.9 Active 11892248 Problem Depressive disorder, not elsewhere classified F32.9 Active 18106597 Problem Other chronic pain G89.29 Active 80274331 ALLERGIES No Information ENCOUNTERS Encounter Location Date Diagnosis [facility] [id number] [address] Feb, [facility] [id number] [address] Feb, Other chronic pain G89.29 and Pain in right knee M25.561 [facility] [id number] [place] [address] 73099- 0072 Feb, PTSD (post-traumatic stress disorder) F43.10 [facility] [id number] [address] Feb, [facility] [address] [id number] Jan, Dementia with behavioral disturbance, unspecified dementia type F03.91 ; Other chronic pain G89.29 and Plantar fasciitis M72.[address] [facility] [address] [id number] Jan, Daily headache R51 ; History of brain shunt Z98.2 ; Plantar fasciitis of left foot M72.2 ; Pain in right knee M25.561 and Pain in left knee M25.562 [facility] [id number] [place] [address] 00485- 1251 Jan, [facility] [id number] [place] [address] 47180- 4870 Jan, Pain in right knee M25.561 [facility] [id number] [place] [address] 72864- 0615 Jan, [facility] [id number] [place] [address] 31912- 5176 Jan, [facility] [id number] [place] [address] 60992- 4266 Jan, [facility] [id number] [place] [address] 91215- 5806 December, Other chronic pain G89.[address] [facility] [address] [id number] December, Pain in left knee M25.562 ; Pain in right leg M79.604 ; Other chronic pain G89.29 ; Localized edema R60.0 and PTSD (post-traumatic stress disorder) F43.10 [facility] [id number] [place] [address] 23359- 8577 December, [facility] [id number] [place] [address] 94608- 1131 December, PTSD (post-traumatic stress disorder) F43.10 [facility] [id number] [place] [address] 88870- 7942 December, [facility] [address] [place] [address] 15277- 5711 December, [facility] [id number] [place] [address] 02559- 6452 December, Depressive disorder, not elsewhere classified F32.9 and Cognitive change R41.89 [facility] [id number] [place] [address] 55819- 6696 Nov, Major depressive disorder, recurrent, moderate F33.1 [facility] [id number] [place] [address] 08574- 0080 Nov, [facility] [id number] [place] [address] 24826- 0351 Nov, [facility] [id number] [place] [address] 62896- 6943 Nov, [facility] [id number] [place] [address] 97740- 7601 Nov, [facility] [id number] [place] [address] 83049- 4241 Nov, Mood disorder F39 [facility] [id number] [place] [address] 93476- 0531 Nov, Depressive disorder, not elsewhere classified F32.9 and Cognitive change R41.89 [facility] [address] [place] [address] 86665- 2746 Nov, [facility] [address] [place] [address] 93209- 2698 Nov, [facility] [place] [address] [place] [id number] Oct, Tear of skin of plantar aspect of right foot, initial encounter S91.311A [facility] [address] [address] 1303 Oct, [facility] [id number] [address]- 2546 Oct, [facility] [id number] [id number] Oct, [facility] [id number] [id number] Oct, [facility] [id number] [id number] Sep, [facility] [id number] [id number] Sep, [facility] [id number] [id number] Sep, [facility] [id number] [id number] Sep, [facility] [address] [address] 9[address] Sep, [facility] [address] [address] 7216 Sep, Other chronic pain G89.29 and Pain in left knee M25.562 [facility] [address] [address] 5186 Sep, [facility] [address] [place] [id number] Sep, Plantar fasciitis of left foot M72.2 and Pain in right knee M25.561 [facility] [id number] [id number] Aug, [facility] [address] [address]- 5226 Aug, [facility] [address] [address]- 8082 Aug, [facility] [address] [address] 3527 Aug, Chronic daily headache R51 [facility] [address] [facility] [id number] [address] 25[address] Aug, [facility] [place] [address] [place] [id number] Aug, Edema, unspecified type R60.9 ; Weight gain R63.5 and Sleep apnea, unspecified type G47.30 [facility] [place] [address] [place] [id number] Jul, Acute pain of left knee M25.562 and Plantar fasciitis of left foot M72.2 [facility] [address] [id number] [address] 28[address] Jul, [facility] [place] [address] [place] [id number] Jul, Plantar fasciitis of left foot M72.2 and Chronic daily headache R51 [facility] [address] [id number] [id number] Jul, [facility] [address] [id number] [id number] Jun, [facility] [address] [facility] [id number] [address]- 7326 Jun, [facility] [address] [id number] [place] [id number] Jun, [facility] [address] [id number] [id number] Jun, [facility] [address] [id number] [place] [id number] May, [facility] [address] [id number] [place] [id number] May, [facility] [address] [facility] [id number] [address]- 2546 May, Stress incontinence of urine N39.3 [facility] [address] [id number] [id number] May, [facility] [place] [address] [place] [id number] May, Encounter for examination for admission to halfway Z02.2 ; Toxoplasmosis B58.9 ; Seizures R56.9 ; Major depressive disorder, recurrent, moderate F33.1 ; Degenerative brain disorder G31.9 and Unsteady gait R26.81 [facility] [id number] [place] [address] 35048- 6357 May, [facility] [address] [address]- 8952 May, Mood disorder F39 [facility] [id number] [place] [address] 193467- 7833 May, [facility] [id number] [place] [address] 58462- 8709 Apr, [facility] [id number] [place] [address] 03251- 5191 Mar, [facility] [id number] [place] [address] 72479- 4562 Mar, [facility] [id number] [place] [address] 98261- 6776 Mar, [facility] [id number] [place] [address] 24595- 9451 Mar, [facility] [id number] [place] [address] 13925- 2509 Mar, [facility] [id number] [place] [address] 02604- 6337 Mar, Stress incontinence of urine N39.3 [facility] [id number] [place] [address] [id number] Mar, [facility] [id number] [place] [address] [id number]- 2303 Feb, [facility] [id number] [place] [address] 56172- 3991 Feb, [facility] [address] [place] [address]- 6986 Feb, [facility] [address] [facility] [id number] [place] [address]- 1137 Feb, [facility] [address] [facility] [id number] [place] [address]- 6676 Feb, [facility] [address] [facility] [id number] [place] [address]- 6144 Feb, [facility] [address] [facility] [id number] [place] [address]- 6605 Feb, [facility] [address] [facility] [id number] [place] [address]- 9019 Jan, [facility] [address] [facility] [id number] [place] [address]- 8394 Jan, [facility] [address] [place] [address]- 5842 Jan, [facility] [address] [facility] [id number] [place] [address]- 4676 Jan, [facility] [address] [place] [address]- 3422 Jan, [facility] [id number] [place] [address]- 4611 Jan, [facility] [address] [place] [address]- 2458 Jan, [facility] [id number] [address]- 6081 Jan, General weakness R53.1 and Dementia with behavioral disturbance, unspecified dementia type F03.91 [facility] [id number] [place] [address]- 6619 December, [facility] [id number] [place] [address]- 8786 December, Other chronic pain G89.29 [facility] [address] [id number] [address]- 8299 December, [facility] [id number] [place] [address] 29617- 7963 December, Unsteady gait R26.81 ; Generalized weakness R53.1 ; Unspecified mental disorder due to known physiological condition F09 and Generalized headaches R51 [facility] [id number] [place] [address] 30210- 0171 December, [facility] [id number] [place] [address] 13873- 0070 Nov, Anxiety F41.9 [id number] [place] [address] 50101- 9292 Nov, Mood disorder F39 [id number] [place] [address] 23362- 3249 Oct, [id number] [place] [address] 76793- 8692 Oct, Anxiety F41.9 [id number] [place] [address] 35621- 1275 Oct, Other chronic pain G89.29 [address] [facility] [id number] [place] [address] 71683- 5053 Sep, Other chronic pain G89.29 ; Pain in left knee M25.562 ; Pain in right knee M25.561 and Anxiety F41.9 [id number] [place] [address] 85715- 6830 Sep, MDD (major depressive disorder), recurrent episode, mild F33.0 ; Degenerative brain disorder G31.9 and Other mcfp (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 Z79.899 [facility] [id number] [place] [address] 94392- 4443 Sep, [id number] [place] [address] 70722- 4298 Sep, [facility] [address] [place] [address] 19468- 4830 Sep, Mood disorder F39 ; Pain of left leg M79.605 and Pain in right leg M79.604 [facility] [address] [place] [address] 14795 2546 14 Sep, 2016 Seizures R56.9 [facility] [id number] [place] [address] 42207 2546 Sep, [facility] [id number] [place] [address] 88762- 2546 Sep, [facility] [id number] [place] [address] 59391- 2526 Sep, [facility] [id number] [place] [address] 25997- 0256 Aug, Bronchitis J40 [facility] [id number] [place] [address] 17646- 6389 Aug, Bronchitis J40 and Encounter for drug screening Z02.83 [facility] [id number] [place] [address] 06615- 7801 Aug, [facility] [address] [place] [address] 76920- 6817 Aug, Seizures R56.9 [facility] [id number] [place] [address] 31749 2546 Aug, Seizures R56.9 [facility] [id number] [place] [address] 49367- 2547 Aug, Major depressive disorder, recurrent, moderate F33.1 and Seizures R56.9 [facility] [id number] [place] [address] 02089 2546 Aug, [facility] [id number] [place] [address] 89737- 3052 Aug, [address] [place] [address] 22186- 7817 Aug, Major depressive disorder, recurrent, moderate F33.1 and Seizures R56.9 [address] [place] [address] 98658- 8678 Jul, Major depressive disorder, recurrent, moderate F33.1 and Degenerative brain disorder G31.9 [address] [id number] [place] [address] 67368- 2693 Jul, Seizures R56.9 [address] [place] [id number] [place] [address] 39052- 9123 Apr, [address] [id number] [place] [address] 18830- 3282 Apr, Major depressive disorder, recurrent, moderate F33.1 ; Anxiety F41.9 and Degenerative brain disorder G31.9 [address] [id number] [place] [address] 78013- 1964 Apr, Mood disorder F39 [address] [id number] [place] [address] 88377- 9750 Apr, Arthritis M19.90 [address] [id number] [place] [address] 00621- 3011 Mar, Arthritis M19.90 ; Degenerative brain disorder G31.9 and Nonintractable generalized idiopathic epilepsy without status epilepticus G40.309 [address] [id number] [place] [address] 17459- 8924 Feb, IMMUNIZATIONS No Known Immunizations SOCIAL HISTORY [...] Surgical History 27 brain surgeries including shunt, [place] Surgical History neck fusion 09/26, 09/28 Surgical History right hand surgery Hospitalization History surgeries Hospitalization History seizures 12/2015
--- OUTSIDE RECORDS SUMMARY | 2018-07-01 14:12 | XMS REPORT ---
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 Name Role Phone ESTEPHANIA IVAN Unavailable PROBLEMS Type Condition ICD9-CM Code TOL23-WM Code Onset Dates Condition Status SNOMED Code Problem Unspecified mental disorder due to known physiological condition F09 Active 281835342 Problem Major depressive disorder, recurrent, moderate F33.1 Active 05668954 Problem Dementia with behavioral disturbance, unspecified dementia type F03.91 Active 3452324200895 Problem Mood disorder F39 Active 99379541 Problem Other chronic pain G89.29 Active 30882738 Problem Anxiety F41.9 Active 33037242 Problem Unsteady gait R26.81 Active 31797504 Problem History of brain shunt Z98.2 Active 411236457 Problem PTSD (post-traumatic stress disorder) F43.10 Active 01460195 Problem Sleep apnea, unspecified type G47.30 Active 42465361 Problem Degenerative brain disorder G31.9 Active 99965402 Problem Depressive disorder, not elsewhere classified F32.9 Active 49731866 Problem Other chronic pain G89.29 Active 58454774 ALLERGIES No Information ENCOUNTERS Encounter Location Date Diagnosis [facility] [id number] [address] Feb, [facility] [id number], [place] [address] Feb, Other chronic pain G89.29 and Pain in right knee M25.561 [facility] [id number] [place] [address] 13540- 3437 Feb, PTSD (post-traumatic stress disorder) F43.10 [facility] [id number], [place] [address] Feb, [facility] [address] [id number] Jan, Dementia with behavioral disturbance, unspecified dementia type F03.91 ; Other chronic pain G89.29 and Plantar fasciitis M72.[address] [facility] [address] [id number] Jan, Daily headache R51 ; History of brain shunt Z98.2 ; Plantar fasciitis of left foot M72.2 ; Pain in right knee M25.561 and Pain in left knee M25.562 [facility] [id number] [place] [address] 72594- 8281 Jan, [facility] [id number] [place] [address] 80606- 3851 Jan, Pain in right knee M25.561 [facility] [id number] [place] [address] 69861- 6040 Jan, [facility] [id number] [place] [address] 41346- 1372 Jan, [facility] [id number] [place] [address] 69962- 4113 Jan, [facility] [id number] [place] [address] 28926- 2127 December, Other chronic pain G89.[address] [facility] [address] [id number] December, Pain in left knee M25.562 ; Pain in right leg M79.604 ; Other chronic pain G89.29 ; Localized edema R60.0 and PTSD (post-traumatic stress disorder) F43.10 [facility] [id number] [place] [address] 28972- 7325 December, [facility] [id number] [place] [address] 53023- 8955 December, PTSD (post-traumatic stress disorder) F43.10 [facility] [id number] [place] [address] 53936- 5252 December, [facility] [address] [place] [address] 93964- 0055 December, [facility] [id number] [place] [address] 42200- 4528 December, Depressive disorder, not elsewhere classified F32.9 and Cognitive change R41.89 [facility] [id number] [place] [address] 22678- 1924 Nov, Major depressive disorder, recurrent, moderate F33.1 [facility] [id number] [place] [address] 10000- 7736 Nov, [facility] [id number] [place] [address] 77672- 8975 Nov, [facility] [id number] [place] [address] 87397- 8545 Nov, [facility] [id number] [place] [address] 66313- 7903 Nov, [facility] [id number] [place] [address] 18939- 6448 Nov, Mood disorder F39 [facility] [id number] [place] [address] 70905- 2910 Nov, Depressive disorder, not elsewhere classified F32.9 and Cognitive change R41.89 [facility] [id number] [place] [address] 94520- 5351 Nov, [facility] [address] [place] [address] 64224- 8462 Nov, [facility] [address] [place] [id number] Oct, Tear of skin of plantar aspect of right foot, initial encounter S91.311A [facility] [address], [place] [address] 74[address] Oct, [facility] [id number], [place] [address] 2546 Oct, [facility] [id number] [id number] Oct, [facility] [id number] [id number] Oct, [facility] [id number] [id number] Sep, [facility] [address] [id number] [id number] Sep, [facility] [id number] [id number] Sep, [facility] [address] [id number] [id number] Sep, [facility] [address], [place] [address] 8[address] Sep, [facility] [address], [place] [address] 4596 Sep, Other chronic pain G89.29 and Pain in left knee M25.562 [facility] [address], [place] [address] Sep, [facility] [address] [id number] Sep, Plantar fasciitis of left foot M72.2 and Pain in right knee M25.561 [facility] [id number] [id number] Aug, [facility] [address], [place] [address] 2366 Aug, [facility] [address], [place] [address] 7045 Aug, [facility] [address], [place] [address] 2139 Aug, Chronic daily headache R51 [facility] [address] [facility] [id number], [place] [address] Aug, [facility] [address] [place] [id number] Aug, Edema, unspecified type R60.9 ; Weight gain R63.5 and Sleep apnea, unspecified type G47.30 [facility] [address] [place] [id number] Jul, Acute pain of left knee M25.562 and Plantar fasciitis of left foot M72.2 [facility] [address] [id number], [place] [address] Jul, [facility] [address] [id number] Jul, Plantar fasciitis of left foot M72.2 and Chronic daily headache R51 [facility] [address] [id number][place] [id number] Jul, [facility] [address] [id number][place] [id number] Jun, [facility] [address] [facility] [id number], [place] [address] 5216 Jun, [facility] [address] [id number][place] [address] Jun, [facility] [address] [id number][place] [id number] Jun, [facility] [address] [id number][place] [id number] May, [facility] [address] [id number], [place] [id number] May, [facility] [address] [facility] [id number], [place] [address] 2546 May, Stress incontinence of urine N39.3 [facility] [address] [id number] [id number] May, [facility] [address] [id number] May, Encounter for examination for admission to half-way Z02.2 ; Toxoplasmosis B58.9 ; Seizures R56.9 ; Major depressive disorder, recurrent, moderate F33.1 ; Degenerative brain disorder G31.9 and Unsteady gait R26.81 [facility] [id number] [place] [address] 48898- 0039 May, [facility] [address] [address]- 7842 May, Mood disorder F39 [facility] [id number] [place] [address] 253493- 7708 May, [facility] [id number] [place] [address] 46460- 2901 Apr, [facility] [id number] [place] [address] 16174- 7261 Mar, [facility] [id number] [place] [address] 60653- 5430 Mar, [facility] [id number] [place] [address] 46749- 5055 Mar, [facility] [id number] [place] [address] 11740- 1961 Mar, [facility] [id number] [place] [address] 64040- 2997 Mar, [facility] [id number] [place] [address] 47441- 3276 Mar, Stress incontinence of urine N39.3 [facility] [id number] [place] [address] [id number] Mar, [facility] [id number] [place] [address] [id number]- 7615 Feb, [facility] [id number] [place] [address] 22210- 7026 Feb, [facility] [address] [place] [address]- 5312 Feb, [facility] [address] [facility] [id number] [place] [address]- 3228 Feb, [facility] [address] [facility] [id number] [place] [address]- 0549 Feb, [facility] [address] [facility] [id number] [place] [address]- 2974 Feb, [facility] [address] [facility] [id number] [place] [address]- 3789 Feb, [facility] [address] [facility] [id number] [place] [address]- 1270 Jan, [facility] [address] [facility] [id number] [place] [address]- 8815 Jan, [facility] [id number] [place] [address]- 5378 Jan, [facility] [address] [facility] [id number] [place] [address]- 0672 Jan, [facility] [id number] [place] [address]- 1886 Jan, [facility] [id number] [place] [address]- 8979 Jan, [facility] [id number] [place] [address]- 0368 Jan, [facility] [id number], [place] [address]- 6804 Jan, General weakness R53.1 and Dementia with behavioral disturbance, unspecified dementia type F03.91 [facility] [id number] [place] [address]- 2491 December, [facility] [id number] [place] [address]- 4126 December, Other chronic pain G89.29 [facility] [address] [id number], [place] [address]- 5416 December, [facility] [id number] [place] [address] 96953- 3666 December, Unsteady gait R26.81 ; Generalized weakness R53.1 ; Unspecified mental disorder due to known physiological condition F09 and Generalized headaches R51 [facility] [id number] [place] [address] 88273- 6333 December, [facility] [id number] [place] [address] 70895- 0106 Nov, Anxiety F41.9 [facility] [id number] [place] [address] 27969- 4808 Nov, Mood disorder F39 [facility] [id number] [place] [address] 30945- 1711 Oct, [facility] [id number] [place] [address] 49021- 4495 Oct, Anxiety F41.9 [facility] [id number] [place] [address] 65092- 6219 Oct, Other chronic pain G89.29 [facility] [id number] [place] [address] 32517- 0412 Sep, Other chronic pain G89.29 ; Pain in left knee M25.562 ; Pain in right knee M25.561 and Anxiety F41.9 [facility] [id number] [place] [address] 82014- 3653 Sep, MDD (major depressive disorder), recurrent episode, mild F33.0 ; Degenerative brain disorder G31.9 and Other detention (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 Z79.899 [facility] [id number] [place] [address] 21182- 4765 Sep, [facility] [id number] [place] [address] 67103- 7039 Sep, [facility] [address] [place] [address] 73240- 1569 Sep, Mood disorder F39 ; Pain of left leg M79.605 and Pain in right leg M79.604 [facility] [address] [place] [address] 07970 2546 14 Sep, 2016 Seizures R56.9 [facility] [id number] [place] [address] 90514 2546 Sep, [facility] [id number] [place] [address] 51909- 2546 Sep, [facility] [id number] [place] [address] 07016- 0496 Sep, [facility] [id number] [place] [address] 15897- 2416 Aug, Bronchitis J40 [facility] [id number] [place] [address] 87992- 0484 Aug, Bronchitis J40 and Encounter for drug screening Z02.83 [facility] [id number] [place] [address] 70864- 1963 Aug, [facility] [address] [place] [address] 89770- 9217 Aug, Seizures R56.9 [facility] [id number] [place] [address] 75010 2546 Aug, Seizures R56.9 [facility] [id number] [place] [address] 20788- 2548 Aug, Major depressive disorder, recurrent, moderate F33.1 and Seizures R56.9 [facility] [id number] [place] [address] 67223 2546 Aug, [facility] [id number] [place] [address] 42537- 6175 Aug, [facility] [address] [place] [address] 74699- 5757 Aug, Major depressive disorder, recurrent, moderate F33.1 and Seizures R56.9 [facility] [address] [place] [address] 95150- 5890 Jul, Major depressive disorder, recurrent, moderate F33.1 and Degenerative brain disorder G31.9 [facility] [id number] [place] [address] 80007- 8737 Jul, Seizures R56.9 [facility] [id number] [place] [address] 15215- 3062 Apr, [facility] [id number] [place] [address] 12979- 1280 Apr, Major depressive disorder, recurrent, moderate F33.1 ; Anxiety F41.9 and Degenerative brain disorder G31.9 [facility] [id number] [place] [address] 41655- 5908 Apr, Mood disorder F39 [facility] [id number] [place] [address] 91315- 0120 Apr, Arthritis M19.90 [facility] [id number] [place] [address] 25100- 3808 Mar, Arthritis M19.90 ; Degenerative brain disorder G31.9 and Nonintractable generalized idiopathic epilepsy without status epilepticus G40.309 [facility] [id number] [place] [address] 83640- 1677 Feb, IMMUNIZATIONS No Known Immunizations SOCIAL HISTORY Never Assessed REASON FOR VISIT Refill request PLAN OF CARE VITAL SIGNS MEDICATIONS Medication Instructions Dosage Frequency Start Date End Date Duration Status Venlafaxine HCl ER 225 MG Orally Once a day 1 tablet with food Once a day Orally 30 day(s) 24h 30 days Active RESULTS No Results PROCEDURES No Known procedures INSTRUCTIONS MEDICATIONS ADMINISTERED No Known Medications MEDICAL (GENERAL) HISTORY Type Description Date Medical History Toxoplasmosis Medical History migraine Medical History dementia Medical History depression Medical History alzheimers disease Medical History epilepsy Medical History COPD Surgical History cholecystectomy Surgical History appendectomy Surgical History 27 brain surgeries including shunt, [place] Surgical History neck fusion 09/26, 09/28 Surgical History right hand surgery Hospitalization History surgeries Hospitalization History seizures 12/2015
--- OUTSIDE RECORDS SUMMARY | 2018-07-01 14:13 | XMS REPORT ---
Author Author ESTEPHANIA IVAN Organization [facility] Address [address] [place] [address] Care Team Providers Care Director [employer] Name Role Phone ESTEPHANIA IVAN Unavailable PROBLEMS Type Condition ICD9-CM Code MTI73-BL Code Onset Dates Condition Status SNOMED Code Problem Anxiety F41.9 Active 52643478 Problem Unsteady gait R26.81 Active 82246918 Problem Unspecified mental disorder due to known physiological condition F09 Active 594386783 Problem Mood disorder F39 Active 77661987 Problem Other chronic pain G89.29 Active 35753732 Problem Depressive disorder, not elsewhere classified F32.9 Active 45773828 Problem Other chronic pain G89.29 Active 86288380 Problem Major depressive disorder, recurrent, moderate F33.1 Active 14441618 Problem Dementia with behavioral disturbance, unspecified dementia type F03.91 Active 4729168321328 Problem Sleep apnea, unspecified type G47.30 Active 70288869 Problem Degenerative brain disorder G31.9 Active 53202618 ALLERGIES No Information ENCOUNTERS Encounter Location Date Diagnosis [place] [id number] [place] [address] 29416- 8336 December, [facility] [id number] [place] [address] 96923- 2019 December, [facility] [id number] [place] [address] 62853- 8002 December, Depressive disorder, not elsewhere classified F32.9 and Cognitive change R41.89 [place] [address] [id number] [place] [address] 35029- 0172 Nov, Major depressive disorder, recurrent, moderate F33.1 [facility] [id number] [place] [address] 66025- 0866 Nov, [place] [id number] [address] Nov, [facility] [id number] [address] 8990 Nov, [facility] [id number] [address] 9036 Nov, [facility] [id number] [place] [address] 34498- 4741 Nov, Mood disorder F39 [facility] [id number] [address] 24[address] Nov, Depressive disorder, not elsewhere classified F32.9 and Cognitive change R41.89 [facility] [id number] [address] 1344 Nov, [facility] [id number] [place] [address] 15931- 8840 Nov, [facility] [address] [place] [id number] Oct, Tear of skin of plantar aspect of right foot, initial encounter S91.311A [facility] [id number] [address] Oct, [facility] [id number] [id number] Oct, [facility] [id number] [place] [id number] Oct, [facility] [id number] [place] [id number] Oct, [facility] [address] [place] [id number] [id number] 28 Sep, 2017 [facility] [id number] [place] [id number] 14 Sep, 2017 [facility] [id number] [place] [id number] 13 Sep, 2017 [facility] [id number] [place] [address] Sep, [facility] [id number] [address] 4426 Sep, [facility] [id number] [address] 8365 Sep, Other chronic pain G89.29 and Pain in left knee M25.562 [facility] [id number] [place] [address] 25667- 4064 Sep, [facility] [address] [id number] Sep, Plantar fasciitis of left foot M72.2 and Pain in right knee M25.561 [facility] [id number] [place] [id number] Aug, [facility] [id number] [place] [address] 32142- 1857 Aug, [facility] [id number] [address] 4313 Aug, [facility] [id number] [place] [address] 25764- 4113 Aug, Chronic daily headache R51 [facility] [address] [id number] [address] 4528 Aug, [facility] [address] [id number] Aug, Edema, unspecified type R60.9 ; Weight gain R63.5 and Sleep apnea, unspecified type G47.30 [facility] [address] [place] [id number] Jul, Acute pain of left knee M25.562 and Plantar fasciitis of left foot M72.2 [facility] [id number] [address] 8816 Jul, [facility] [id number] Jul, Plantar fasciitis of left foot M72.2 and Chronic daily headache R51 [facility] [id number] [place] [address] Jul, [facility] [id number] [place] [id number] Jun, [facility] [address] [facility] [id number] [place] [address] Jun, [facility] [address] [id number] [address] Jun, [facility] [id number] [place] [id number] Jun, [facility] [id number] [address] May, [facility] [id number] [place] [id number] May, [facility] [id number] [address] May, Stress incontinence of urine N39.3 [facility] [id number] [place] [id number] May, [facility] [address] [id number] May, Encounter for examination for admission to detention Z02.2 ; Toxoplasmosis B58.9 ; Seizures R56.9 ; Major depressive disorder, recurrent, moderate F33.1 ; Degenerative brain disorder G31.9 and Unsteady gait R26.81 [facility] [address] [place] [id number] [address] 7[address] May, [facility] [id number] [address] May, Mood disorder F39 [facility] [address] [place] [id number] May, [facility] [place] [facility] [address] [id number] [place] [address]- 6425 Apr, [facility] [place] [facility] [address] [id number] [place] [address]- 3[address] Mar, [facility] [place] [facility] [address] [id number] [place] [address]- 9039 Mar, [facility] [place] [facility] [address] [id number] [place] [address]- 8921 Mar, [facility] [place] [facility] [address] [id number] [place] [address]- 7350 Mar, [facility] [place] [facility] [id number] [place] [address], [place] [address]- 2633 Mar, [facility] [place] [facility] [address] [facility] [id number] [place] [address]- 0946 Mar, Stress incontinence of urine N39.3 [facility] [id number] [place] [address], [place] [id number] Mar, [facility] [place] [facility] [address] [id number] [place] [address]- 7749 Feb, [facility] [place] [facility] [address] [id number] [place] [address]- 6765 Feb, [facility] [place] [facility] [address] [id number] [place] [address]- 3551 Feb, [facility] [place] [facility] [address] [id number] [place] [address]- 4182 Feb, [facility] [place] [facility] [address] [id number] [place] [address]- 5364 Feb, [facility] [place] [facility] [address] [id number] [place] [address]- 5646 Feb, [facility] [place] [facility] [address] [id number] [place] [address]- 3620 Feb, [facility] [place] [facility] [address] [id number] [place] [address]- 4769 Jan, [facility] [id number] [address]- 5436 Jan, [facility] [id number] [address]- 8905 Jan, [facility] [id number] [address]- 6587 Jan, [facility] [id number] [place] [address] 24839- 7551 Jan, [facility] [id number] [address]- 2358 Jan, [facility] [id number] [address]- 4007 Jan, [facility] [id number] [address]- 8253 Jan, General weakness R53.1 and Dementia with behavioral disturbance, unspecified dementia type F03.91 [facility] [id number] [address]- 8965 December, [facility] [address] [place] [id number] [address]- 5809 December, Other chronic pain G89.29 [facility] [id number] [address]- 9894 December, [facility] [id number] [address]- 8348 December, Unsteady gait R26.81 ; Generalized weakness R53.1 ; Unspecified mental disorder due to known physiological condition F09 and Generalized headaches R51 [facility] [id number] [address]- 5702 December, [facility] [id number] [address]- 4423 Nov, Anxiety F41.9 [facility] [id number] [place] [address] 74678- 8168 Nov, Mood disorder F39 [facility] [id number] [place] [address] 93416- 6834 Oct, [facility] [id number] [place] [address] 10393- 3302 Oct, Anxiety F41.9 [facility] [id number] [place] [address] 17241- 4203 Oct, Other chronic pain G89.29 [facility] [id number] [place] [address] 30816- 6876 Sep, Other chronic pain G89.29 ; Pain in left knee M25.562 ; Pain in right knee M25.561 and Anxiety F41.9 [facility] [id number] [place] [address] 05530- 0355 Sep, MDD (major depressive disorder), recurrent episode, mild F33.0 ; Degenerative brain disorder G31.9 and Other skilled nursing (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 Z79.899 [facility] [id number] [place] [address] 84769- 8671 Sep, [facility] [id number] [place] [address] 12906- 4104 Sep, [facility] [id number] [place] [address] 69746- 5793 Sep, Mood disorder F39 ; Pain of left leg M79.605 and Pain in right leg M79.604 [facility] [id number] [place] [address] 40995- 5106 Sep, Seizures R56.9 [facility] [id number] [place] [address] 63105- 5428 Sep, [facility] [id number] [place] [address] 23443- 9583 Sep, [facility] [id number] [address]- 8811 Sep, [facility] [id number] [place] [address] 95782- 2516 Aug, Bronchitis J40 [facility] [id number] [place] [address] 40072 2546 Aug, Bronchitis J40 and Encounter for drug screening Z02.83 [facility] [id number] [place] [address] 85961- 2346 Aug, [facility] [id number] [place] [address] 65287- 3236 Aug, Seizures R56.9 [facility] [id number] [place] [address] 39139- 1646 Aug, Seizures R56.9 [facility] [id number] [place] [address] 67247 2541 Aug, Major depressive disorder, recurrent, moderate F33.1 and Seizures R56.9 [facility] [id number] [place] [address] 17781- 9166 Aug, [facility] [id number] [place] [address] 16719- 7798 Aug, [facility] [id number] [place] [address] 31319- 8227 Aug, Major depressive disorder, recurrent, moderate F33.1 and Seizures R56.9 [facility] [id number] [place] [address] 22820 2544 Jul, Major depressive disorder, recurrent, moderate F33.1 and Degenerative brain disorder G31.9 [facility] [id number] [place] [address] 59061- 2366 Jul, Seizures R56.9 [facility] [id number] [place] [address] 15490 2546 Apr, [place] [address] [place] [id number] [address]- 1798 Apr, Major depressive disorder, recurrent, moderate F33.1 ; Anxiety F41.9 and Degenerative brain disorder G31.9 [place] [id number] [address]- 2458 Apr, Mood disorder F39 [place] [id number] [address]- 8973 Apr, Arthritis M19.90 [place] [id number] [address]- 6709 Mar, Arthritis M19.90 ; Degenerative brain disorder G31.9 and Nonintractable generalized idiopathic epilepsy without status epilepticus G40.309 [place] [id number] [address]- 9407 Feb, IMMUNIZATIONS No Known Immunizations SOCIAL HISTORY Never Assessed REASON FOR VISIT allergies PLAN OF CARE VITAL SIGNS MEDICATIONS Medication Instructions Dosage Frequency Start Date End Date Duration Status Zyrtec Allergy 10 mg Orally Once a day 1 tablet as needed 24h May, 30 day(s) Active RESULTS No Results PROCEDURES No Known procedures INSTRUCTIONS MEDICATIONS ADMINISTERED No Known Medications MEDICAL (GENERAL) HISTORY Type Description Date Medical History Toxoplasmosis Medical History migraine Medical History dementia Medical History depression Medical History alzheimers disease Medical History epilepsy Medical History COPD Surgical History cholecystectomy Surgical History appendectomy Surgical History 27 brain surgeries including shunt, [place] Surgical History neck fusion 09/26, 09/28 Surgical History right hand surgery Hospitalization History surgeries Hospitalization History seizures 12/2015
--- OUTSIDE RECORDS SUMMARY | 2018-07-01 14:13 | XMS REPORT ---
Author Author ESTEPHANIA IVAN Organization [facility] Address [address] [place] [address] Care Team Providers Care Wet Pour Mixer Name Role Phone ESTEPHANIA IVAN Unavailable PROBLEMS Type Condition ICD9-CM Code WDD93-GY Code Onset Dates Condition Status SNOMED Code Problem Unspecified mental disorder due to known physiological condition F09 Active 688516068 Problem Major depressive disorder, recurrent, moderate F33.1 Active 69013045 Problem Dementia with behavioral disturbance, unspecified dementia type F03.91 Active 8142464639664 Problem Mood disorder F39 Active 29634387 Problem Other chronic pain G89.29 Active 66094354 Problem Anxiety F41.9 Active 00163473 Problem Unsteady gait R26.81 Active 28243022 Problem History of brain shunt Z98.2 Active 485553032 Problem PTSD (post-traumatic stress disorder) F43.10 Active 10069049 Problem Sleep apnea, unspecified type G47.30 Active 18740829 Problem Degenerative brain disorder G31.9 Active 28918893 Problem Depressive disorder, not elsewhere classified F32.9 Active 09161464 Problem Other chronic pain G89.29 Active 76557374 ALLERGIES No Information ENCOUNTERS Encounter Location Date Diagnosis [facility] [id number] [address] Feb, [facility] [id number], [place] [address] Feb, Other chronic pain G89.29 and Pain in right knee M25.561 [facility] [id number] [place] [address] 40918- 6132 Feb, PTSD (post-traumatic stress disorder) F43.10 [facility] [id number], [place] [address] 47[address] Feb, [facility] [address] [id number] Jan, Dementia with behavioral disturbance, unspecified dementia type F03.91 ; Other chronic pain G89.29 and Plantar fasciitis M72.[address] [facility] [address] [id number] Jan, Daily headache R51 ; History of brain shunt Z98.2 ; Plantar fasciitis of left foot M72.2 ; Pain in right knee M25.561 and Pain in left knee M25.562 [facility] [id number] [place] [address] 11970- 4000 Jan, [facility] [id number] [place] [address] 95432- 4445 Jan, Pain in right knee M25.561 [facility] [id number] [place] [address] 21983- 0934 Jan, [facility] [id number] [place] [address] 15050- 1945 Jan, [facility] [id number] [place] [address] 54571- 3344 Jan, [facility] [id number] [place] [address] 88926- 0124 December, Other chronic pain G89.[address] [facility] [address] [id number] December, Pain in left knee M25.562 ; Pain in right leg M79.604 ; Other chronic pain G89.29 ; Localized edema R60.0 and PTSD (post-traumatic stress disorder) F43.10 [facility] [id number] [place] [address] 11347- 9396 December, [facility] [id number] [place] [address] 55850- 5348 December, PTSD (post-traumatic stress disorder) F43.10 [facility] [id number] [place] [address] 02430- 8304 December, [facility] [address] [place] [address] 36731- 3075 December, [facility] [id number] [place] [address] 40025- 8887 December, Depressive disorder, not elsewhere classified F32.9 and Cognitive change R41.89 [facility] [id number] [place] [address] 08360- 5126 Nov, Major depressive disorder, recurrent, moderate F33.1 [facility] [id number] [place] [address] 40945- 9346 Nov, [facility] [id number] [place] [address] 77283- 2537 Nov, [facility] [id number] [place] [address] 40812- 5198 Nov, [facility] [id number] [place] [address] 72807- 2899 Nov, [facility] [id number] [place] [address] 08172- 1545 Nov, Mood disorder F39 [facility] [id number] [place] [address] 82946- 2697 Nov, Depressive disorder, not elsewhere classified F32.9 and Cognitive change R41.89 [facility] [address] [place] [address] 97793- 8170 Nov, [facility] [address] [place] [address] 04001- 2757 Nov, [facility] [address] [place] [id number] Oct, Tear of skin of plantar aspect of right foot, initial encounter S91.311A [facility] [address], [place] [address] 99[address] Oct, [facility] [id number] [address] 25[address] Oct, [facility] [id number] [id number] Oct, [facility] [id number] [id number] Oct, [facility] [id number] [id number] Sep, [facility] [id number] [id number] Sep, [facility] [id number] [id number] Sep, [facility] [address] [id number] [id number] Sep, [facility] [address], [place] [address] 3[address] Sep, [facility] [address], [place] [address] 3456 Sep, Other chronic pain G89.29 and Pain in left knee M25.562 [facility] [address], [place] [address] Sep, [facility] [address] [id number] Sep, Plantar fasciitis of left foot M72.2 and Pain in right knee M25.561 [facility] [id number] [id number] Aug, [facility] [address], [place] [address]- 4346 Aug, [facility] [address], [place] [address] 7971 Aug, [facility] [address], [place] [address] 1294 Aug, Chronic daily headache R51 [facility] [address] [facility] [id number], [place] [address] 2546 Aug, [facility] [address] [id number] Aug, Edema, unspecified type R60.9 ; Weight gain R63.5 and Sleep apnea, unspecified type G47.30 [facility] [address] [id number] Jul, Acute pain of left knee M25.562 and Plantar fasciitis of left foot M72.2 [facility] [address] [id number], [place] [address] Jul, [facility] [address] [id number] Jul, Plantar fasciitis of left foot M72.2 and Chronic daily headache R51 [facility] [address] [id number] [id number] Jul, [facility] [address] [id number] [id number] Jun, [facility] [address] [facility] [id number], [place] [address]- 9666 Jun, [facility] [address] [id number] [id number] Jun, [facility] [address] [id number][place] [id number] Jun, [facility] [address] [id number] [id number] May, [facility] [address] [id number] [id number] May, [facility] [address] [facility] [id number], [place] [address] 2546 May, Stress incontinence of urine N39.3 [facility] [address] [id number] [id number] May, [facility] [address] [id number] May, Encounter for examination for admission to [facility] Z02.2 ; Toxoplasmosis B58.9 ; Seizures R56.9 ; Major depressive disorder, recurrent, moderate F33.1 ; Degenerative brain disorder G31.9 and Unsteady gait R26.81 [facility] [id number] [place] [address] 66755- 6291 May, [facility] [address] 9[address]75- 1725 May, Mood disorder F39 [facility] [id number] [place] [address] 822948- 3497 May, [facility] [id number] [place] [address] 67800- 4742 Apr, [facility] [id number] [place] [address] 07841- 3070 Mar, [facility] [id number] [place] [address] 16794- 5020 Mar, [facility] [id number] [place] [address] 61203- 6269 Mar, [facility] [id number] [place] [address] 85795- 1180 Mar, [facility] [id number] [place] [address] 47619- 8398 Mar, [facility] [id number] [place] [address] 51709- 7565 Mar, Stress incontinence of urine N39.3 [facility] [id number] [place] [address] [id number] Mar, [facility] [id number] [place] [address] [id number]- 6235 Feb, [facility] [id number] [place] [address] 44974- 0220 Feb, [facility] [address] [place] [address]- 7537 Feb, [facility] [address] [facility] [id number] [place] [address]- 6494 Feb, [facility] [address] [facility] [id number] [place] [address]- 5533 Feb, [facility] [address] [facility] [id number] [place] [address]- 6938 Feb, [facility] [address] [facility] [id number] [place] [address]- 6742 Feb, [facility] [address] [facility] [id number] [place] [address]- 9986 Jan, [facility] [address] [facility] [id number] [place] [address]- 8422 Jan, [facility] [address] [place] [address]- 3217 Jan, [facility] [address] [facility] [id number] [place] [address]- 1806 Jan, [facility] [address] [place] [address]- 6400 Jan, [facility] [id number] [place] [address]- 5760 Jan, [facility] [address] [place] [address]- 1951 Jan, [facility] [id number], [place] [address]- 4075 Jan, General weakness R53.1 and Dementia with behavioral disturbance, unspecified dementia type F03.91 [facility] [id number] [place] [address]- 4805 December, [facility] [id number] [place] [address]- 4961 December, Other chronic pain G89.29 [facility] [id number], [place] [address]- 0128 December, [facility] [id number] [place] [address] 22170- 0524 December, Unsteady gait R26.81 ; Generalized weakness R53.1 ; Unspecified mental disorder due to known physiological condition F09 and Generalized headaches R51 [facility] [id number] [place] [address] 36742- 1664 December, [facility] [id number] [place] [address] 28894- 0177 Nov, Anxiety F41.9 [facility] [id number] [place] [address] 35455- 8327 Nov, Mood disorder F39 [facility] [id number] [place] [address] 74393- 7031 Oct, [facility] [id number] [place] [address] 04748- 3676 Oct, Anxiety F41.9 [facility] [id number] [place] [address] 73786- 8561 Oct, Other chronic pain G89.29 [facility] [id number] [place] [address] 59947- 6448 Sep, Other chronic pain G89.29 ; Pain in left knee M25.562 ; Pain in right knee M25.561 and Anxiety F41.9 [facility] [id number] [place] [address] 52643- 3999 Sep, MDD (major depressive disorder), recurrent episode, mild F33.0 ; Degenerative brain disorder G31.9 and Other custodial (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 Z79.899 [facility] [id number] [place] [address] 71539- 2236 Sep, [facility] [id number] [place] [address] 55853- 5285 Sep, [facility] [address] [place] [address] 98755- 4724 Sep, Mood disorder F39 ; Pain of left leg M79.605 and Pain in right leg M79.604 [facility] [address] [place] [address] 94488 2546 14 Sep, 2016 Seizures R56.9 [facility] [id number] [place] [address] 25220 2546 Sep, [facility] [id number] [place] [address] 49426- 2546 Sep, [facility] [id number] [place] [address] 09246- 8266 Sep, [facility] [id number] [place] [address] 00894- 1926 Aug, Bronchitis J40 [facility] [id number] [place] [address] 20742- 9032 Aug, Bronchitis J40 and Encounter for drug screening Z02.83 [facility] [id number] [place] [address] 07969- 6457 Aug, [facility] [address] [place] [address] 27864- 2721 Aug, Seizures R56.9 [facility] [id number] [place] [address] 88024 2546 Aug, Seizures R56.9 [facility] [id number] [place] [address] 22526- 2548 Aug, Major depressive disorder, recurrent, moderate F33.1 and Seizures R56.9 [facility] [id number] [place] [address] 11746 2546 Aug, [facility] [id number] [place] [address] 51265- 7062 Aug, [facility] [address] [place] [address] 36887- 8001 Aug, Major depressive disorder, recurrent, moderate F33.1 and Seizures R56.9 [facility] [id number] [place] [address] 32181- 1452 Jul, Major depressive disorder, recurrent, moderate F33.1 and Degenerative brain disorder G31.9 [facility] [id number] [place] [address] 34477- 3670 Jul, Seizures R56.9 [facility] [id number] [place] [address] 60371- 0441 Apr, [facility] [id number] [place] [address] 49223- 4374 Apr, Major depressive disorder, recurrent, moderate F33.1 ; Anxiety F41.9 and Degenerative brain disorder G31.9 [facility] [id number] [place] [address] 42820- 8567 Apr, Mood disorder F39 [facility] [id number] [place] [address] 56322- 7433 Apr, Arthritis M19.90 [facility] [id number] [place] [address] 45594- 6972 Mar, Arthritis M19.90 ; Degenerative brain disorder G31.9 and Nonintractable generalized idiopathic epilepsy without status epilepticus G40.309 [facility] [id number] [place] [address] 59887- 1639 Feb, IMMUNIZATIONS No Known Immunizations SOCIAL HISTORY Never Assessed REASON FOR VISIT Refill request PLAN OF CARE VITAL SIGNS MEDICATIONS Medication Instructions Dosage Frequency Start Date End Date Duration Status Furosemide 40 mg Orally Once a day in AM 1 tablet Sep, 30 day (s) Active RESULTS No Results PROCEDURES No Known procedures INSTRUCTIONS MEDICATIONS ADMINISTERED No Known Medications MEDICAL (GENERAL) HISTORY Type Description Date Medical History Toxoplasmosis Medical History migraine Medical History dementia Medical History depression Medical History alzheimers disease Medical History epilepsy Medical History COPD Surgical History cholecystectomy Surgical History appendectomy Surgical History 27 brain surgeries including shunt, [place] Surgical History neck fusion 09/26, 09/28 Surgical History right hand surgery Hospitalization History surgeries Hospitalization History seizures 12/2015
--- OUTSIDE RECORDS SUMMARY | 2018-07-01 14:13 | XMS REPORT ---
Author Author ESTEPHANIA IVAN Organization [facility] Address [address] [place] [address] Care Team Providers Care Solution Make Up Operator Name Role Phone ESTEPHANIA IVAN Unavailable PROBLEMS Type Condition ICD9-CM Code KOU72-BK Code Onset Dates Condition Status SNOMED Code Problem Unsteady gait R26.81 Active 18630282 Problem Dementia with behavioral disturbance, unspecified dementia type F03.91 Active 6059106133110 Problem Unspecified mental disorder due to known physiological condition F09 Active 985807987 Problem Mood disorder F39 Active 42401887 Problem Other chronic pain G89.29 Active 38057736 Problem Anxiety F41.9 Active 20531297 Problem PTSD (post-traumatic stress disorder) F43.10 Active 05949798 Problem Depressive disorder, not elsewhere classified F32.9 Active 95390247 Problem Degenerative brain disorder G31.9 Active 60068231 Problem Major depressive disorder, recurrent, moderate F33.1 Active 20679976 Problem Other chronic pain G89.29 Active 19531346 Problem Sleep apnea, unspecified type G47.30 Active 35810993 ALLERGIES No Information ENCOUNTERS Encounter Location Date Diagnosis [facility] [address] [address] Feb, [facility] [id number] [place] [address] 52231- 8812 Feb, [facility] [id number] [place] [address] 30439- 1661 Jan, [facility] [id number] [place] [address] 48723- 0934 Jan, Pain in right knee M25.561 [facility] [id number] [place] [address] 09932- 6751 Jan, [place] [address] [address] 27[address] Jan, [facility] [id number] [place] [address] 77045- 8675 Jan, [facility] [id number] [address] 3741 December, Other chronic pain G89.29 [facility] [address] [place] [id number] December, Pain in left knee M25.562 ; Pain in right leg M79.604 ; Other chronic pain G89.29 ; Localized edema R60.0 and PTSD (post-traumatic stress disorder) F43.10 [facility] [id number] [place] [address] 51604- 1400 December, [facility] [id number] [place] [address] 09919- 1465 December, PTSD (post-traumatic stress disorder) F43.10 [facility] [id number] [place] [address] 25770- 2918 December, [facility] [id number] [place] [address] 11413- 2374 December, [facility] [id number] [place] [address] 04992- 2457 December, Depressive disorder, not elsewhere classified F32.9 and Cognitive change R41.89 [facility] [id number] [place] [address] 07671- 1604 Nov, Major depressive disorder, recurrent, moderate F33.1 [facility] [address] [place] [address] 59814- 3193 Nov, [facility] [id number] [place] [address] 34977- 6700 Nov, [facility] [id number] [place] [address] 64644- 7151 Nov, [facility] [id number] [address] [address] Nov, [facility] [address] [address] 2175 Nov, Mood disorder F39 [facility] [id number] [address] 6181 Nov, Depressive disorder, not elsewhere classified F32.9 and Cognitive change R41.89 [facility] [address] [address] 8832 Nov, [facility] [id number] [address] 1468 Nov, [facility] [address] [place] [id number] Oct, Tear of skin of plantar aspect of right foot, initial encounter S91.311A [facility] [address] [address] 5[address] Oct, [facility] [id number] [address] [address] Oct, [facility] [id number] [id number] Oct, [facility] [id number] [id number] Oct, [facility] [id number] [id number] Sep, [facility] [address] [id number] [id number] 14 Sep, 2017 [facility] [id number] [id number] 13 Sep, 2017 [facility] [id number] [id number] 09 Sep, 2017 [facility] [id number] [address] 4821 Sep, [facility] [id number] [address] 8735 Sep, Other chronic pain G89.29 and Pain in left knee M25.562 [facility] [address] [address] 1580 Sep, [facility] [address] [place] [id number] Sep, Plantar fasciitis of left foot M72.2 and Pain in right knee M25.561 [facility] [id number] [place] [address] [id number] Aug, [facility] [address] [place] [address] 35111- 4281 Aug, [facility] [id number] [place] [address] 80627- 2271 Aug, [facility] [address] [place] [address] 59886- 8634 Aug, Chronic daily headache R51 [facility] [address] [place] [address] 11312- 0998 Aug, [facility] [address] [id number] Aug, Edema, unspecified type R60.9 ; Weight gain R63.5 and Sleep apnea, unspecified type G47.[address] [facility] [address] [id number] Jul, Acute pain of left knee M25.562 and Plantar fasciitis of left foot M72.2 [facility] [address] [address]26 Jul, [facility] [address] [place] [id number] Jul, Plantar fasciitis of left foot M72.2 and Chronic daily headache R51 [facility] [id number] [place] [id number] Jul, [facility] [id number] [id number] Jun, [facility] [address] [address] 2546 Jun, [facility] [id number] [place] [id number] Jun, [facility] [id number] [address] Jun, [facility] [id number] [id number] May, [facility] [id number] [place] [id number] May, [facility] [address] [address] 7356 May, Stress incontinence of urine N39.3 [facility] [id number] [id number] May, [facility] [address] [place] [id number] May, Encounter for examination for admission to assisted Z02.2 ; Toxoplasmosis B58.9 ; Seizures R56.9 ; Major depressive disorder, recurrent, moderate F33.1 ; Degenerative brain disorder G31.9 and Unsteady gait R26.81 [facility] [address] [address] May, [facility] [address] [address] May, Mood disorder F39 [facility] [address] [address] 9791 May, [facility] [address] [address]- 3796 Apr, [facility] [id number] [address] 3836 Mar, [facility] [place] [facility] [address] [id number] [place] [address]- 1998 Mar, [facility] [place] [facility] [address] [id number] [place] [address]- 9407 Mar, [facility] [place] [facility] [address] [id number] [place] [address] Mar, [facility] [place] [facility] [address] [id number] [place] [address]- 1735 Mar, [facility] [place] [facility] [address] [id number] [place] [address]- 4784 Mar, Stress incontinence of urine N39.3 [facility] [id number] [place] [address], [place] [id number] Mar, [facility] [place] [facility] [address] [id number] [place] [address]- 7191 Feb, [facility] [place] [facility] [address] [id number] [place] [address]- 2588 Feb, [facility] [place] [facility] [address] [id number] [place] [address]- 6383 Feb, [facility] [place] [facility] [address] [id number] [place] [address]- 6405 Feb, [facility] [place] [facility] [address] [id number] [place] [address]- 1924 Feb, [facility] [place] [facility] [address] [id number] [place] [address]- 5001 Feb, [facility] [place] [facility] [address] [id number] [place] [address]- 4835 Feb, [facility] [place] [facility] [address] [id number] [place] [address] Jan, [facility] [place] [facility] [address] [id number] [place] [address]- 1876 Jan, [facility] [place] [facility] [address] [id number] [place] [address]- 7805 Jan, [facility] [address] [address]- 7528 Jan, [facility] [id number] [place] [address] 39826- 4795 Jan, [facility] [address] [address]- 9620 Jan, [facility] [id number] [place] [address] 10811- 6601 Jan, [facility] [address] [place] [address] 00105- 9486 Jan, General weakness R53.1 and Dementia with behavioral disturbance, unspecified dementia type F03.91 [facility] [id number] [place] [address] 06316- 6762 December, [facility] [id number] [place] [address] 09461- 7298 December, Other chronic pain G89.29 [facility] [id number] [place] [address] 36167- 1641 December, [facility] [id number] [place] [address] 09566- 3970 December, Unsteady gait R26.81 ; Generalized weakness R53.1 ; Unspecified mental disorder due to known physiological condition F09 and Generalized headaches R51 [facility] [address] [address]- 0109 December, [facility] [address] [address]- 7692 Nov, Anxiety F41.9 [facility] [address] [place] [address] 09869- 7497 Nov, Mood disorder F39 [facility] [address] [address]- 8114 Oct, [place] [address] [place] [address] 83627- 6368 Oct, Anxiety F41.9 [facility] [id number] [place] [address] 55887- 6946 Oct, Other chronic pain G89.29 [facility] [id number] [place] [address] 82491- 2948 Sep, Other chronic pain G89.29 ; Pain in left knee M25.562 ; Pain in right knee M25.561 and Anxiety F41.9 [facility] [id number] [place] [address] 64872- 3766 Sep, MDD (major depressive disorder), recurrent episode, mild F33.0 ; Degenerative brain disorder G31.9 and 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 [facility] [id number] [place] [address] 10982- 5690 Sep, [facility] [id number] [place] [address] 58107- 0101 Sep, [facility] [id number] [place] [address] 14016- 3562 Sep, Mood disorder F39 ; Pain of left leg M79.605 and Pain in right leg M79.604 [facility] [id number] [place] [address] 27333- 4471 Sep, Seizures R56.9 [facility] [id number] [place] [address] 21797- 5707 Sep, [facility] [id number] [place] [address] 86360- 2730 Sep, [facility] [id number] [place] [address] 44127- 7409 Sep, [facility] [id number] [place] [address] 14263- 0640 Aug, Bronchitis J40 [facility] [id number] [place] [address] 71563- 9318 Aug, Bronchitis J40 and Encounter for drug screening Z02.83 [facility] [id number] [place] [address] 00194- 2925 Aug, [facility] [id number] [place] [address] 19712- 2499 Aug, Seizures R56.9 [facility] [id number] [place] [address] 20264- 6085 Aug, Seizures R56.9 [place] [address] [address]- 9929 Aug, Major depressive disorder, recurrent, moderate F33.1 and Seizures R56.9 [facility] [id number] [place] [address] 11664- 2537 Aug, [facility] [id number] [place] [address] 24179- 3777 Aug, [facility] [id number] [place] [address] 47635- 4420 Aug, Major depressive disorder, recurrent, moderate F33.1 and Seizures R56.9 [place] [id number] [place] [address] 34996- 8218 Jul, Major depressive disorder, recurrent, moderate F33.1 and Degenerative brain disorder G31.9 [facility] [address] [place] [address] 87076- 8756 Jul, Seizures R56.9 [facility] [id number] [place] [address] 11242- 5956 Apr, [facility] [id number] [place] [address] 71878- 7120 Apr, Major depressive disorder, recurrent, moderate F33.1 ; Anxiety F41.9 and Degenerative brain disorder G31.9 [place] [id number] [address] 1952 Apr, Mood disorder F39 [facility] [address] [facility] [id number] [address]- 6551 Apr, Arthritis M19.90 [place] [address] [facility] [id number] [address]- 3536 Mar, Arthritis M19.90 ; Degenerative brain disorder G31.9 and Nonintractable generalized idiopathic epilepsy without status epilepticus G40.309 [place] [address] [facility] [id number] [place] [address]- 3390 Feb, IMMUNIZATIONS No Known Immunizations SOCIAL HISTORY [...] Surgical History 27 brain surgeries including shunt, [place] Surgical History neck fusion 09/26, 09/28 Surgical History right hand surgery Hospitalization History surgeries Hospitalization History seizures 12/2015
--- OUTSIDE RECORDS SUMMARY | 2018-07-01 14:14 | XMS REPORT ---
Author Author ESTEPHANIA IVAN Organization [facility] Address [address] [place] [address] Care Team Providers Care Horticulture Worker Name Role Phone ESTEPHANIA IVAN Unavailable PROBLEMS Type Condition ICD9-CM Code [id number] Code Onset Dates Condition Status SNOMED Code Problem Unsteady gait R26.81 Active 77027483 Problem Dementia with behavioral disturbance, unspecified dementia type F03.91 Active 6141426330172 Problem Unspecified mental disorder due to known physiological condition F09 Active 114162899 Problem Mood disorder F39 Active 45824610 Problem Other chronic pain G89.29 Active 25954922 Problem Anxiety F41.9 Active 66334549 Problem PTSD (post-traumatic stress disorder) F43.10 Active 22026297 Problem Depressive disorder, not elsewhere classified F32.9 Active 38661335 Problem Degenerative brain disorder G31.9 Active 57230716 Problem Major depressive disorder, recurrent, moderate F33.1 Active 83015679 Problem Other chronic pain G89.29 Active 59373083 Problem Sleep apnea, unspecified type G47.30 Active 60470249 ALLERGIES No Information ENCOUNTERS Encounter Location Date Diagnosis [facility] [address] [address] Feb, [facility] [id number] [place] [address] 75405- 3487 Feb, [facility] [address] [place] [address] 85937- 3495 Jan, [facility] [id number] [place] [address] 97686- 5841 Jan, Pain in right knee M25.561 [facility] [address] [place] [address] 81257- 1079 Jan, [place] [address] [address]47 Jan, [facility] [id number] [place] [address] 63360- 1780 Jan, [facility] [id number] [address] December, Other chronic pain G89.29 [facility] [address] [place] [id number] December, Pain in left knee M25.562 ; Pain in right leg M79.604 ; Other chronic pain G89.29 ; Localized edema R60.0 and PTSD (post-traumatic stress disorder) F43.10 [facility] [id number] [place] [address] 24415- 2146 December, [facility] [id number] [place] [address] 60591- 9035 December, PTSD (post-traumatic stress disorder) F43.10 [facility] [address] [place] [address] 12251- 5252 December, [facility] [id number] [place] [address] 33000- 8917 December, [facility] [id number] [place] [address] 44691- 3153 December, Depressive disorder, not elsewhere classified F32.9 and Cognitive change R41.89 [facility] [address] [place] [address] 46052- 7075 Nov, Major depressive disorder, recurrent, moderate F33.1 [facility] [address] [place] [address] 50890- 6932 Nov, [facility] [id number] [place] [address] 40290- 5819 Nov, [facility] [address] [place] [address] 30310- 0087 Nov, [facility] [id number] [address] Nov, [facility] [address] [address] 7209 Nov, Mood disorder F39 [facility] [id number] [address] 7134 Nov, Depressive disorder, not elsewhere classified F32.9 and Cognitive change R41.89 [facility] [address] [address] 3[address] Nov, [facility] [id number] [address] Nov, [facility] [address] [place] [id number] Oct, Tear of skin of plantar aspect of right foot, initial encounter S91.311A [facility] [address] [address] 4423 Oct, [facility] [id number] [address] Oct, [facility] [id number] [place] [id number] Oct, [facility] [id number] [id number] Oct, [facility] [id number] [id number] Sep, [facility] [address] [id number] [id number] 14 Sep, 2017 [facility] [id number] [place] [id number] 13 Sep, 2017 [facility] [id number] [place] [id number] 09 Sep, 2017 [facility] [id number] [address] 8398 Sep, [facility] [id number] [address] 4382 Sep, Other chronic pain G89.29 and Pain in left knee M25.562 [facility] [address] [address] Sep, [facility] [address] [place] [id number] Sep, Plantar fasciitis of left foot M72.2 and Pain in right knee M25.561 [facility] [place] [id number] [place] [id number] Aug, [facility] [address] [place] [address] 27525- 2869 Aug, [facility] [id number] [place] [address] 41382- 6823 Aug, [facility] [address] [place] [address] 08722- 1652 Aug, Chronic daily headache R51 [facility] [address] [place] [address] 83463- 8546 Aug, [facility] [address] [id number] Aug, Edema, unspecified type R60.9 ; Weight gain R63.5 and Sleep apnea, unspecified type G47.[address] [facility] [address] [id number] Jul, Acute pain of left knee M25.562 and Plantar fasciitis of left foot M72.2 [facility] [address] [address]- 8386 Jul, [facility] [address] [place] [id number] Jul, Plantar fasciitis of left foot M72.2 and Chronic daily headache R51 [facility] [place] [id number] [place] [id number] Jul, [facility] [id number] [id number] Jun, [facility] [address] [address] 2546 Jun, [facility] [id number] [place] [id number] Jun, [facility] [id number] [id number] Jun, [facility] [id number] [id number] May, [facility] [id number] [place] [id number] May, [facility] [address] [address]- 4596 May, Stress incontinence of urine N39.3 [facility] [id number] [id number] May, [facility] [address] [place] [id number] May, Encounter for examination for admission to shelter Z02.2 ; Toxoplasmosis B58.9 ; Seizures R56.9 ; Major depressive disorder, recurrent, moderate F33.1 ; Degenerative brain disorder G31.9 and Unsteady gait R26.81 [facility] [address] May, [facility] [address] [address] May, Mood disorder F39 [facility] [address] [address]- 9946 May, [facility] [address] [address] Apr, [facility] [id number] [address]- 8006 Mar, [facility] [place] [facility] [address] [id number] [place] [address]- 0554 Mar, [facility] [place] [facility] [address] [id number] [place] [address]- 6347 Mar, [facility] [place] [facility] [address] [id number] [place] [address]57 Mar, [facility] [place] [facility] [address] [id number] [place] [address]- 8684 Mar, [facility] [place] [facility] [address] [id number] [place] [address]- 8214 Mar, Stress incontinence of urine N39.3 [facility] [id number] [place] [address], [place] [id number] Mar, [facility] [place] [facility] [address] [id number] [place] [address]- 9447 Feb, [facility] [place] [facility] [address] [id number] [place] [address]- 4406 Feb, [facility] [place] [facility] [address] [id number] [place] [address]- 5917 Feb, [facility] [place] [facility] [address] [id number] [place] [address]- 5734 Feb, [facility] [place] [facility] [address] [id number] [place] [address]- 7171 Feb, [facility] [place] [facility] [address] [id number] [place] [address]- 0322 Feb, [facility] [place] [facility] [address] [id number] [place] [address]- 2532 Feb, [facility] [place] [facility] [address] [id number] [place] [address] Jan, [facility] [place] [facility] [address] [id number] [place] [address]- 5202 Jan, [facility] [place] [facility] [address] [id number] [address]- 8096 Jan, [facility] [address] [address]- 0600 Jan, [facility] [address] [place] [address] 92630- 8263 Jan, [facility] [address] [address]- 7720 Jan, [facility] [id number] [place] [address] 28305- 8697 Jan, [facility] [address] [place] [address] 50311- 5016 Jan, General weakness R53.1 and Dementia with behavioral disturbance, unspecified dementia type F03.91 [facility] [id number] [place] [address] 90750- 3192 December, [facility] [id number] [place] [address] 94245- 7233 December, Other chronic pain G89.29 [facility] [id number] [place] [address] 37391- 0516 December, [facility] [id number] [place] [address] 86907- 6493 December, Unsteady gait R26.81 ; Generalized weakness R53.1 ; Unspecified mental disorder due to known physiological condition F09 and Generalized headaches R51 [facility] [address] [address]- 6739 December, [facility] [address] [address]- 7018 Nov, Anxiety F41.9 [facility] [address] [place] [address] 85688- 1642 Nov, Mood disorder F39 [facility] [address] [address]- 9572 Oct, [place] [address] [place] [address] 34693- 3329 Oct, Anxiety F41.9 [facility] [id number] [place] [address] 74654- 9448 Oct, Other chronic pain G89.29 [facility] [id number] [place] [address] 70583- 6100 Sep, Other chronic pain G89.29 ; Pain in left knee M25.562 ; Pain in right knee M25.561 and Anxiety F41.9 [facility] [id number] [place] [address] 67394- 3165 Sep, MDD (major depressive disorder), recurrent episode, mild F33.0 ; Degenerative brain disorder G31.9 and 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 [facility] [id number] [place] [address] 76092- 3727 Sep, [facility] [id number] [place] [address] 95449- 8520 Sep, [facility] [id number] [place] [address] 72008- 4638 Sep, Mood disorder F39 ; Pain of left leg M79.605 and Pain in right leg M79.604 [facility] [id number] [place] [address] 75095- 3853 Sep, Seizures R56.9 [facility] [id number] [place] [address] 03363- 7389 Sep, [facility] [id number] [place] [address] 32548- 8246 Sep, [facility] [id number] [place] [address] 59525- 3822 Sep, [facility] [id number] [place] [address] 84001- 2215 Aug, Bronchitis J40 [facility] [id number] [place] [address] 04208- 9153 Aug, Bronchitis J40 and Encounter for drug screening Z02.83 [facility] [id number] [place] [address] 91426- 4034 Aug, [facility] [id number] [place] [address] 22750- 6097 Aug, Seizures R56.9 [facility] [id number] [place] [address] 63415- 7825 Aug, Seizures R56.9 [place] [address] 19574- 3948 Aug, Major depressive disorder, recurrent, moderate F33.1 and Seizures R56.9 [place] [id number] [place] [address] 74128- 9813 Aug, [facility] [id number] [place] [address] 06555- 3540 Aug, [facility] [id number] [place] [address] 97061- 1291 Aug, Major depressive disorder, recurrent, moderate F33.1 and Seizures R56.9 [place] [id number] [place] [address] 34800- 2813 Jul, Major depressive disorder, recurrent, moderate F33.1 and Degenerative brain disorder G31.9 [facility] [address] [place] [address] 33730- 9706 Jul, Seizures R56.9 [facility] [id number] [place] [address] 41459- 3256 Apr, [facility] [id number] [place] [address] 19741- 2912 Apr, Major depressive disorder, recurrent, moderate F33.1 ; Anxiety F41.9 and Degenerative brain disorder G31.9 [place] [id number] [address]- 9671 Apr, Mood disorder F39 [place] [address] [facility] [id number] [address]- 2978 Apr, Arthritis M19.90 [place] [address] [facility] [id number] [address]- 7507 Mar, Arthritis M19.90 ; Degenerative brain disorder G31.9 and Nonintractable generalized idiopathic epilepsy without status epilepticus G40.309 [place] [address] [facility] [id number] [address]- 9784 Feb, IMMUNIZATIONS No Known Immunizations SOCIAL HISTORY Never Assessed REASON FOR VISIT PLAN OF CARE Activity Details Follow Up prn Reason: VITAL SIGNS MEDICATIONS Medication Instructions Dosage Frequency Start Date End Date Duration Status Depend Easy Fit Undergarments 1 as directed 8h Mar, Active Lexapro 20 mg Orally Once a day 1 tablet 24h Active Amitriptyline HCl 25 MG TAKE 1 TABLET BY MOUTH DAILY AT BEDTIME 30 Active Wheelchair 1 as directed December, Active Memantine HCl 5 mg Orally Once a day 1 tablet 24h 30 Active Venlafaxine HCl ER 225 MG 1 tablet with food Once a day Orally 30 day(s) 30 Active Ondansetron 4 MG Orally every 8 hrs PRN 1 tablet on the tongue and allow to dissolve Aug, Active Clonazepam 1 MG Orally Twice a day 1/2 tab in the AM and 1 tab in the PM 12h Sep, 28 days Active [place] 10-325 MG Orally 3 times a day 1 tablet 8h Jun, 28 days Active ProAir HFA 108 (90 Base) MCG/ACT Inhalation every 4 hrs 2 puffs as needed for cough or short of breath 4h 30 Active Symbicort 160-4.5 MCG/ACT Inhalation Twice a day 2 puffs 12h Sep, 30 days Active Omeprazole 20 mg 1 capsules Once a day Orally Active Depakote 500 mg Orally 2 times a day 3 capsules 12h Active Zyrtec Allergy 10 mg Orally Once a day 1 tablet as needed 24h 19 May, 2017 30 day(s) Active Keppra 500 MG Orally 2 times a day 3 capsules 12h Active Naproxen 500 MG Orally every 12 hrs 1 tablet as needed 12h 30 Active Lyrica 75 MG Orally twice a day 1 capsule 12h 12 Jul, 2017 days Active Venlafaxine HCl ER 225 MG Orally Once a day 1 tablet with food 24h Sep, Active Omeprazole 20 mg Orally Once a day 1 capsules 24h Active Ditropan XL 5 mg Orally Once a day 1 tablet 24h 18 Mar, 2017 30 day(s) Active RESULTS No Results PROCEDURES Procedure Date Ordered Result Body Site Minor complication (15 mins) Aug 16, 2017 INSTRUCTIONS MEDICATIONS ADMINISTERED No Known Medications MEDICAL (GENERAL) HISTORY Type Description Date Medical History Toxoplasmosis Medical History migraine Medical History dementia Medical History depression Medical History alzheimers disease Medical History epilepsy Medical History COPD Surgical History cholecystectomy Surgical History appendectomy Surgical History 27 brain surgeries including shunt, [place] Surgical History neck fusion 09/26, 09/28 Surgical History right hand surgery Hospitalization History surgeries Hospitalization History seizures 12/2015
--- OUTSIDE RECORDS SUMMARY | 2018-07-01 14:14 | XMS REPORT ---
Author Author ESTEPHANIA IVAN Organization [facility] Address [address] [place] [address] Care Team Providers Care Staffing Analyst Name Role Phone ESTEPHANIA IVAN Unavailable PROBLEMS Type Condition ICD9-CM Code OMX51-SQ Code Onset Dates Condition Status SNOMED Code Problem Unsteady gait R26.81 Active 51682949 Problem Dementia with behavioral disturbance, unspecified dementia type F03.91 Active 0048835464760 Problem Unspecified mental disorder due to known physiological condition F09 Active 350538442 Problem Mood disorder F39 Active 30602670 Problem Other chronic pain G89.29 Active 59858319 Problem Anxiety F41.9 Active 21152929 Problem PTSD (post-traumatic stress disorder) F43.10 Active 01989784 Problem Depressive disorder, not elsewhere classified F32.9 Active 56627471 Problem Degenerative brain disorder G31.9 Active 22299016 Problem Major depressive disorder, recurrent, moderate F33.1 Active 57051444 Problem Other chronic pain G89.29 Active 66999782 Problem Sleep apnea, unspecified type G47.30 Active 41078584 ALLERGIES No Information ENCOUNTERS Encounter Location Date Diagnosis [facility] [address] [address] Feb, [facility] [id number] [place] [address] 97560- 6700 Feb, [facility] [address] [place] [address] 70621- 4033 Jan, [facility] [id number] [place] [address] 07252- 2499 Jan, Pain in right knee M25.561 [facility] [address] [place] [address] 27339- 2763 Jan, [place] [address], [place] [address] 8[address] Jan, [facility] [id number] [place] [address] 15147- 7312 Jan, [facility] [address] [address] December, Other chronic pain G89.29 [facility] [address] [place] [id number] December, Pain in left knee M25.562 ; Pain in right leg M79.604 ; Other chronic pain G89.29 ; Localized edema R60.0 and PTSD (post-traumatic stress disorder) F43.10 [facility] [id number] [place] [address] 96286- 4755 December, [facility] [id number] [place] [address] 05699- 9771 December, PTSD (post-traumatic stress disorder) F43.10 [facility] [address] [place] [address] 03977- 9720 December, [facility] [id number] [place] [address] 29738- 5331 December, [facility] [id number] [place] [address] 02266- 5704 December, Depressive disorder, not elsewhere classified F32.9 and Cognitive change R41.89 [facility] [address] [place] [address] 80399- 4809 Nov, Major depressive disorder, recurrent, moderate F33.1 [facility] [address] [place] [address] 26317- 7721 Nov, [facility] [id number] [place] [address] 09863- 1332 Nov, [facility] [address] [place] [address] 55098- 8410 Nov, [facility] [id number] [address] Nov, [facility] [address], [place] [address] 8826 Nov, Mood disorder F39 [facility] [id number], [place] [address] 1404 Nov, Depressive disorder, not elsewhere classified F32.9 and Cognitive change R41.89 [facility] [address], [place] [address] 6[address] Nov, [facility] [id number], [place] [address] 0[address] Nov, [facility] [address] [id number] Oct, Tear of skin of plantar aspect of right foot, initial encounter S91.311A [facility] [address], [place] [address] 89[address] Oct, [facility] [id number] [address] Oct, [facility] [id number] [id number] Oct, [facility] [id number] [address] Oct, [facility] [id number] [id number] Sep, [facility] [address] [id number] [id number] 14 Sep, 2017 [facility] [id number] [id number] 13 Sep, 2017 [facility] [id number] [id number] 09 Sep, 2017 [facility] [id number] [address]- 6760 Sep, [facility] [id number] [address] 4648 Sep, Other chronic pain G89.29 and Pain in left knee M25.562 [facility] [address], [place] [address] 49[address] Sep, [facility] [address] [place] [address] Sep, Plantar fasciitis of left foot M72.2 and Pain in right knee M25.561 [facility] [id number] [place] [id number] Aug, [facility] [address] [place] [address] 97924- 4763 Aug, [facility] [id number] [place] [address] 65196- 1516 Aug, [facility] [address] [place] [address] 24005- 4374 Aug, Chronic daily headache R51 [facility] [address] [place] [address] 49290- 1892 Aug, [facility] [address] [id number] Aug, Edema, unspecified type R60.9 ; Weight gain R63.5 and Sleep apnea, unspecified type G47.[address] [facility] [address] [id number] Jul, Acute pain of left knee M25.562 and Plantar fasciitis of left foot M72.2 [facility] [address], [place] [address]- 2576 Jul, [facility] [address] [place] [id number] Jul, Plantar fasciitis of left foot M72.2 and Chronic daily headache R51 [facility] [id number] [place] [id number] Jul, [facility] [id number] [id number] Jun, [facility] [address], [place] [address] 2546 Jun, [facility] [id number] [id number] Jun, [facility] [id number] [id number] Jun, [facility] [id number] [id number] May, [facility] [id number] [place] [id number] May, [facility] [address], [place] [address]- 3346 May, Stress incontinence of urine N39.3 [facility] [id number] [address] May, [facility] [place] [address] [id number] May, Encounter for examination for admission to fci Z02.2 ; Toxoplasmosis B58.9 ; Seizures R56.9 ; Major depressive disorder, recurrent, moderate F33.1 ; Degenerative brain disorder G31.9 and Unsteady gait R26.81 [facility] [address] May, [facility] [address] [address]49 May, Mood disorder F39 [facility] [address], [place] [address]- 1242 May, [facility] [address], [place] [address]- 4106 Apr, [facility] [id number], [place] [address]- 6806 Mar, [facility] [place] [facility] [address] [id number] [place] [address]- 8727 Mar, [facility] [place] [facility] [address] [id number] [place] [address]- 1063 Mar, [facility] [place] [facility] [address] [id number] [place] [address] Mar, [facility] [place] [facility] [address] [id number] [place] [address]- 1813 Mar, [facility] [place] [facility] [address] [id number] [place] [address]- 4877 Mar, Stress incontinence of urine N39.3 [facility] [id number] [place] [address], [place] [id number] Mar, [facility] [place] [facility] [address] [id number] [place] [address]- 4671 Feb, [facility] [place] [facility] [address] [id number] [place] [address]- 2523 Feb, [facility] [place] [facility] [address] [id number] [place] [address]- 7683 Feb, [facility] [place] [facility] [address] [id number] [place] [address]- 9467 Feb, [facility] [place] [facility] [address] [id number] [place] [address]- 6950 Feb, [facility] [place] [facility] [address] [id number] [place] [address]- 6004 Feb, [facility] [place] [facility] [address] [id number] [place] [address]- 4821 Feb, [facility] [place] [facility] [address] [id number] [place] 9[address] Jan, [facility] [place] [facility] [address] [id number] [place] [address]- 6513 Jan, [facility] [place] [facility] [address] [id number], [place] [address]- 9198 Jan, [facility] [address], [place] [address]- 9674 Jan, [facility] [address] [place] [address] 41070- 2703 Jan, [facility] [address], [place] [address]- 7720 Jan, [facility] [id number] [place] [address] 14580- 9760 Jan, [facility] [address] [place] [address] 22509- 5534 Jan, General weakness R53.1 and Dementia with behavioral disturbance, unspecified dementia type F03.91 [facility] [id number] [place] [address] 77815- 7409 December, [facility] [id number] [place] [address] 17096- 3415 December, Other chronic pain G89.29 [facility] [id number] [place] [address] 09725- 8890 December, [facility] [id number] [place] [address] 85889- 9799 December, Unsteady gait R26.81 ; Generalized weakness R53.1 ; Unspecified mental disorder due to known physiological condition F09 and Generalized headaches R51 [facility] [address], [place] [address]- 8154 December, [facility] [address], [place] [address]- 6058 Nov, Anxiety F41.9 [facility] [address] [place] [address] 21549- 4087 Nov, Mood disorder F39 [facility] [address], [place] [address]- 3410 Oct, [place] [address] [place] [address] 65040- 8028 Oct, Anxiety F41.9 [facility] [id number] [place] [address] 38423- 7134 Oct, Other chronic pain G89.29 [facility] [id number] [place] [address] 15627- 2261 Sep, Other chronic pain G89.29 ; Pain in left knee M25.562 ; Pain in right knee M25.561 and Anxiety F41.9 [facility] [id number] [place] [address] 85612- 4882 Sep, MDD (major depressive disorder), recurrent episode, mild F33.0 ; Degenerative brain disorder G31.9 and Other wrapper layer (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 Z79.899 [facility] [id number] [place] [address] 44700- 6520 Sep, [facility] [id number] [place] [address] 80733- 3455 Sep, [facility] [id number] [place] [address] 14031- 8644 Sep, Mood disorder F39 ; Pain of left leg M79.605 and Pain in right leg M79.604 [facility] [id number] [place] [address] 97060- 5328 Sep, Seizures R56.9 [facility] [id number] [place] [address] 31460- 2341 Sep, [facility] [id number] [place] [address] 39548- 5811 Sep, [facility] [id number] [place] [address] 89730- 2342 Sep, [facility] [id number] [place] [address] 64356- 4505 Aug, Bronchitis J40 [facility] [id number] [place] [address] 14387- 4083 Aug, Bronchitis J40 and Encounter for drug screening Z02.83 [facility] [id number] [place] [address] 38062- 6892 Aug, [facility] [id number] [place] [address] 88091- 7932 Aug, Seizures R56.9 [facility] [id number] [place] [address] 66725- 1940 Aug, Seizures R56.9 [place] [address] 66832- 9576 Aug, Major depressive disorder, recurrent, moderate F33.1 and Seizures R56.9 [place] [id number] [place] [address] 94792- 9763 Aug, [facility] [id number] [place] [address] 12984- 5090 Aug, [facility] [id number] [place] [address] 31999- 6611 Aug, Major depressive disorder, recurrent, moderate F33.1 and Seizures R56.9 [place] [id number] [place] [address] 21052- 9530 Jul, Major depressive disorder, recurrent, moderate F33.1 and Degenerative brain disorder G31.9 [facility] [address] [place] [address] 69239- 3526 Jul, Seizures R56.9 [facility] [id number] [place] [address] 35701- 2076 Apr, [facility] [id number] [place] [address] 00967- 3984 Apr, Major depressive disorder, recurrent, moderate F33.1 ; Anxiety F41.9 and Degenerative brain disorder G31.9 [place] [id number] [address]- 0109 Apr, Mood disorder F39 [place] [address] [facility] [id number] [address]- 4002 Apr, Arthritis M19.90 [place] [address] [facility] [id number] [address]- 1296 Mar, Arthritis M19.90 ; Degenerative brain disorder G31.9 and Nonintractable generalized idiopathic epilepsy without status epilepticus G40.309 [place] [address] [facility] [id number] [address]- 9108 Feb, IMMUNIZATIONS No Known Immunizations SOCIAL HISTORY Never Assessed REASON FOR VISIT Routine Visit PLAN OF CARE Activity Details Follow Up prn Reason: VITAL SIGNS MEDICATIONS Medication Instructions Dosage Frequency Start Date End Date Duration Status Venlafaxine HCl ER 225 MG Orally Once a day 1 tablet with food 24h Sep, Active Omeprazole 20 mg Orally Once a day 1 capsules 24h Active Amitriptyline HCl 25 MG TAKE 1 TABLET BY MOUTH DAILY AT BEDTIME 30 Active Depend Easy Fit Undergarments 1 as directed 8h Mar, Active Memantine HCl 5 mg Orally Once a day 1 tablet 24h 30 Active Omeprazole 20 mg 1 capsules Once a day Orally Active Depakote 500 mg Orally 2 times a day 3 capsules 12h Active Symbicort 160-4.5 MCG/ACT Inhalation Twice a day 2 puffs 12h Sep, 30 days Active Clonazepam 1 MG Orally Twice a day 1/2 tab in the AM and 1 tab in the PM 12h Sep, 28 days Active Wheelchair 1 as directed December, Active ProAir HFA 108 (90 Base) MCG/ACT Inhalation every 4 hrs 2 puffs as needed for cough or short of breath 4h 30 Active Venlafaxine HCl ER 225 MG 1 tablet with food Once a day Orally 30 day(s) 30 Active Lyrica 75 MG Orally twice a day 1 capsule 12h Jul, days Active [place] 10-325 MG Orally 3 times a day 1 tablet 8h 30 Jun, 2017 28 days Active Naproxen 500 MG Orally every 12 hrs 1 tablet as needed 12h 30 Active Lexapro 20 mg Orally Once a day 1 tablet 24h Active Zyrtec Allergy 10 mg Orally Once a day 1 tablet as needed 24h May, 30 day(s) Active Ondansetron 4 MG Orally every 8 hrs PRN 1 tablet on the tongue and allow to dissolve Aug, Active Keppra 500 MG Orally 2 times a day 3 capsules 12h Active Ditropan XL 5 mg Orally Once a day 1 tablet 24h Mar, 30 day(s) Active RESULTS No Results PROCEDURES Procedure Date Ordered Result Body Site Minor complication (15 mins) Aug 02, 2017 INSTRUCTIONS MEDICATIONS ADMINISTERED No Known Medications MEDICAL (GENERAL) HISTORY Type Description Date Medical History Toxoplasmosis Medical History migraine Medical History dementia Medical History depression Medical History alzheimers disease Medical History epilepsy Medical History COPD Surgical History cholecystectomy Surgical History appendectomy Surgical History 27 brain surgeries including shunt, [place] Surgical History neck fusion 09/26, 09/28 Surgical History right hand surgery Hospitalization History surgeries Hospitalization History seizures 12/2015
--- OUTSIDE RECORDS SUMMARY | 2018-07-01 14:14 | XMS REPORT ---
Author Author ESTEPHANIA IVAN Organization [facility] Address [address] [place] [address] Care Team Providers Care Crepe Sole Wire Brusher Name Role Phone ESTEPHANIA IVAN Unavailable PROBLEMS Type Condition ICD9-CM Code AKT63-NP Code Onset Dates Condition Status SNOMED Code Problem Unsteady gait R26.81 Active 00524557 Problem Dementia with behavioral disturbance, unspecified dementia type F03.91 Active [id number] Problem Unspecified mental disorder due to known physiological condition F09 Active 403046132 Problem Mood disorder F39 Active 56314340 Problem Other chronic pain G89.29 Active 33274155 Problem Anxiety F41.9 Active 36345035 Problem PTSD (post-traumatic stress disorder) F43.10 Active 39408587 Problem Depressive disorder, not elsewhere classified F32.9 Active 16491576 Problem Degenerative brain disorder G31.9 Active 71476850 Problem Major depressive disorder, recurrent, moderate F33.1 Active 78225402 Problem Other chronic pain G89.29 Active 94591948 Problem Sleep apnea, unspecified type G47.30 Active 36803413 ALLERGIES No Information ENCOUNTERS Encounter Location Date Diagnosis [facility] [address], [place] [address] Feb, [facility] [id number] [place] [address] 57918- 6178 Feb, [facility] [id number] [place] [address] 59075- 8357 Jan, [facility] [id number] [place] [address] 99554- 5362 Jan, Pain in right knee M25.561 [facility] [address] [place] [address] 66259- 3914 Jan, [place] [address], [place] [address] Jan, [facility] [id number] [place] [address] 80933- 8054 Jan, [facility] [id number], [place] [address] December, Other chronic pain G89.29 [facility] [address] [place] [id number] December, Pain in left knee M25.562 ; Pain in right leg M79.604 ; Other chronic pain G89.29 ; Localized edema R60.0 and PTSD (post-traumatic stress disorder) F43.10 [facility] [id number] [place] [address] 16286- 7679 December, [facility] [id number] [place] [address] 14529- 2234 December, PTSD (post-traumatic stress disorder) F43.10 [facility] [address] [place] [address] 78242- 2090 December, [facility] [id number] [place] [address] 76618- 2865 December, [facility] [id number] [place] [address] 34742- 7766 December, Depressive disorder, not elsewhere classified F32.9 and Cognitive change R41.89 [facility] [address] [place] [address] 18254- 4723 Nov, Major depressive disorder, recurrent, moderate F33.1 [facility] [address] [place] [address] 93011- 9028 Nov, [facility] [id number] [place] [address] 61786- 0982 Nov, [facility] [address] [place] [address] 39682- 4563 Nov, [facility] [id number] [address] Nov, [facility] [address], [place] [address] Nov, Mood disorder F39 [facility] [id number], [place] [address] 2065 Nov, Depressive disorder, not elsewhere classified F32.9 and Cognitive change R41.89 [facility] [address], [place] [address] 8957 Nov, [facility] [id number], [place] [address] 1269 Nov, [facility] [address] [place] [id number] Oct, Tear of skin of plantar aspect of right foot, initial encounter S91.311A [facility] [address], [place] [address] 07[address] Oct, [facility] [id number] [address] Oct, [facility] [id number] [id number] Oct, [facility] [id number] [id number] Oct, [facility] [id number] [id number] Sep, [facility] [address] [id number] [id number] 14 Sep, 2017 [facility] [id number] [id number] 13 Sep, 2017 [facility] [id number] [id number] 09 Sep, 2017 [facility] [id number], [place] [address] 7242 Sep, [facility] [id number], [place] [address] 0[address] Sep, Other chronic pain G89.29 and Pain in left knee M25.562 [facility] [address], [place] [address] Sep, [facility] [address] [place] [id number] Sep, Plantar fasciitis of left foot M72.2 and Pain in right knee M25.561 [facility] [id number] [place] [id number] Aug, [facility] [address] [place] [address] 86520- 1831 Aug, [facility] [id number] [place] [address] 43013- 1564 Aug, [facility] [address] [place] [address] 90552- 6060 Aug, Chronic daily headache R51 [facility] [address] [place] [address] 15845- 6608 Aug, [facility] [address] [id number] Aug, Edema, unspecified type R60.9 ; Weight gain R63.5 and Sleep apnea, unspecified type G47.[address] [facility] [address] [id number] Jul, Acute pain of left knee M25.562 and Plantar fasciitis of left foot M72.2 [facility] [address], [place] [address] 6136 Jul, [facility] [address] [place] [id number] Jul, Plantar fasciitis of left foot M72.2 and Chronic daily headache R51 [facility] [id number] [place] [id number] Jul, [facility] [id number] [id number] Jun, [facility] [address], [place] [address] 2546 Jun, [facility] [place] [facility] [id number] [id number] Jun, [facility] [id number] [id number] Jun, [facility] [id number] [id number] May, [facility] [id number] [place] [id number] May, [facility] [address], [place] [address]- 9236 May, Stress incontinence of urine N39.3 [facility] [id number] [id number] May, [facility] [address] [place] [id number] May, Encounter for examination for admission to snf Z02.2 ; Toxoplasmosis B58.9 ; Seizures R56.9 ; Major depressive disorder, recurrent, moderate F33.1 ; Degenerative brain disorder G31.9 and Unsteady gait R26.81 [facility] [address] May, [facility] [address] [address] May, Mood disorder F39 [facility] [address], [place] [address]- 6738 May, [facility] [address], [place] [address]- 1486 Apr, [facility] [id number], [place] [address] Mar, [facility] [place] [facility] [address] [id number] [place] [address]- 5677 Mar, [facility] [place] [facility] [address] [id number] [place] [address]- 1805 Mar, [facility] [place] [facility] [address] [id number] [place] [address]65 Mar, [facility] [place] [facility] [address] [id number] [place] [address]- 1549 Mar, [facility] [place] [facility] [address] [id number] [place] [address]- 5369 Mar, Stress incontinence of urine N39.3 [facility] [id number] [place] [address], [place] [id number] Mar, [facility] [place] [facility] [address] [id number] [place] [address]- 0639 Feb, [facility] [place] [facility] [address] [id number] [place] [address]- 8776 Feb, [facility] [place] [facility] [address] [id number] [place] [address]- 7011 Feb, [facility] [place] [facility] [address] [id number] [place] [address]- 7295 Feb, [facility] [place] [facility] [address] [id number] [place] [address]- 4368 Feb, [facility] [place] [facility] [address] [id number] [place] [address]- 2971 Feb, [facility] [place] [facility] [address] [id number] [place] [address]- 2709 Feb, [facility] [place] [facility] [address] [id number] [place] [address] Jan, [facility] [place] [facility] [address] [id number] [place] [address]- 6456 Jan, [facility] [place] [facility] [address] [id number], [place] [address]- 2759 Jan, [facility] [address], [place] [address]- 9937 Jan, [facility] [address] [place] [address] 95247- 6713 Jan, [facility] [address], [place] [address]- 7031 Jan, [facility] [id number] [place] [address] 30252- 0701 Jan, [facility] [address] [place] [address] 43300- 5523 Jan, General weakness R53.1 and Dementia with behavioral disturbance, unspecified dementia type F03.91 [facility] [id number] [place] [address] 80202- 3989 December, [facility] [id number] [place] [address] 80970- 6742 December, Other chronic pain G89.29 [facility] [id number] [place] [address] 68414- 0121 December, [facility] [id number] [place] [address] 27539- 7340 December, Unsteady gait R26.81 ; Generalized weakness R53.1 ; Unspecified mental disorder due to known physiological condition F09 and Generalized headaches R51 [facility] [address], [place] [address]- 8454 December, [facility] [address], [place] [address]- 5450 Nov, Anxiety F41.9 [facility] [id number] [place] [address] 58265- 1981 Nov, Mood disorder F39 [facility] [address], [place] [address]- 0183 Oct, [place] [address] [place] [address] 35909- 3893 Oct, Anxiety F41.9 [facility] [id number] [place] [address] 31483- 8524 Oct, Other chronic pain G89.29 [facility] [id number] [place] [address] 97202- 4096 Sep, Other chronic pain G89.29 ; Pain in left knee M25.562 ; Pain in right knee M25.561 and Anxiety F41.9 [facility] [id number] [place] [address] 49492- 1909 Sep, MDD (major depressive disorder), recurrent episode, mild F33.0 ; Degenerative brain disorder G31.9 and Other intermediate card tender (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 Z79.899 [facility] [id number] [place] [address] 54074- 7585 Sep, [facility] [id number] [place] [address] 84813- 3199 Sep, [facility] [id number] [place] [address] 92476- 6920 Sep, Mood disorder F39 ; Pain of left leg M79.605 and Pain in right leg M79.604 [facility] [id number] [place] [address] 73824- 8930 Sep, Seizures R56.9 [facility] [id number] [place] [address] 31323- 5871 Sep, [facility] [id number] [place] [address] 35583- 2628 Sep, [facility] [id number] [place] [address] 29337- 8053 Sep, [facility] [id number] [place] [address] 90438- 2660 Aug, Bronchitis J40 [facility] [id number] [place] [address] 00944- 1071 Aug, Bronchitis J40 and Encounter for drug screening Z02.83 [facility] [id number] [place] [address] 68331- 5271 Aug, [facility] [id number] [place] [address] 13342- 3535 Aug, Seizures R56.9 [facility] [id number] [place] [address] 79064- 7938 Aug, Seizures R56.9 [place] [address] [address]176- 6129 Aug, Major depressive disorder, recurrent, moderate F33.1 and Seizures R56.9 [place] [id number] [place] [address] 15507- 3493 Aug, [facility] [id number] [place] [address] 74846- 4447 Aug, [facility] [id number] [place] [address] 01747- 9231 Aug, Major depressive disorder, recurrent, moderate F33.1 and Seizures R56.9 [place] [id number] [place] [address] 03738- 0432 Jul, Major depressive disorder, recurrent, moderate F33.1 and Degenerative brain disorder G31.9 [facility] [address] [place] [address] 06597- 8916 Jul, Seizures R56.9 [facility] [id number] [place] [address] 09570- 3576 Apr, [facility] [id number] [place] [address] 84759- 5680 Apr, Major depressive disorder, recurrent, moderate F33.1 ; Anxiety F41.9 and Degenerative brain disorder G31.9 [place] [id number] [address]- 5758 Apr, Mood disorder F39 [place] [address] [facility] [id number], [place] [address]- 2473 Apr, Arthritis M19.90 [place] [address] [facility] [id number], [place] [address]- 8506 Mar, Arthritis M19.90 ; Degenerative brain disorder G31.9 and Nonintractable generalized idiopathic epilepsy without status epilepticus G40.309 [place] [address] [facility] [id number], [place] [address]- 3587 Feb, IMMUNIZATIONS No Known Immunizations SOCIAL HISTORY Never Assessed REASON FOR VISIT BLE edema, confusion PLAN OF CARE Activity Details Follow Up prn Reason: VITAL SIGNS MEDICATIONS Medication Instructions Dosage Frequency Start Date End Date Duration Status Wheelchair 1 as directed December, Active Depakote 500 mg Orally 2 times a day 3 capsules 12h Active Amitriptyline HCl 25 MG TAKE 1 TABLET BY MOUTH DAILY AT BEDTIME 30 Active Depend Easy Fit Undergarments 1 as directed 8h Mar, Active Naproxen 500 MG Orally every 12 hrs 1 tablet as needed 12h 30 Active Omeprazole 20 mg 1 capsules Once a day Orally Active Omeprazole 20 mg Orally Once a day 1 capsules 24h Active Ditropan XL 5 mg Orally Once a day 1 tablet 24h Mar, 30 day(s) Active Lyrica 75 MG Orally twice a day 1 capsule 12h 12 Jul, 2017 days Active ProAir HFA 108 (90 Base) MCG/ACT Inhalation every 4 hrs 2 puffs as needed for cough or short of breath 4h 30 Active Symbicort 160-4.5 MCG/ACT Inhalation Twice a day 2 puffs 12h Sep, 30 days Active Venlafaxine HCl ER 225 MG 1 tablet with food Once a day Orally 30 day(s) 30 Active Venlafaxine HCl ER 225 MG Orally Once a day 1 tablet with food 24h Sep, Active Zyrtec Allergy 10 mg Orally Once a day 1 tablet as needed 24h May, 30 day(s) Active Memantine HCl 5 mg Orally Once a day 1 tablet 24h 30 Active Keppra 500 MG Orally 2 times a day 3 capsules 12h Active Clonazepam 1 MG Orally Twice a day 1/2 tab in the AM and 1 tab in the PM 12h Sep, 28 days Active Lexapro 20 mg Orally Once a day 1 tablet 24h Active Ondansetron 4 MG Orally every 8 hrs PRN 1 tablet on the tongue and allow to dissolve Aug, Active Pullman 10-325 MG Orally 3 times a day 1 tablet 8h Jun, 28 days Active RESULTS No Results PROCEDURES Procedure Date Ordered Result Body Site Minor complication (15 mins) Aug 23, 2017 INSTRUCTIONS MEDICATIONS ADMINISTERED No Known Medications MEDICAL (GENERAL) HISTORY Type Description Date Medical History Toxoplasmosis Medical History migraine Medical History dementia Medical History depression Medical History alzheimers disease Medical History epilepsy Medical History COPD Surgical History cholecystectomy Surgical History appendectomy Surgical History 27 brain surgeries including shunt, [place] Surgical History neck fusion 09/26, 09/28 Surgical History right hand surgery Hospitalization History surgeries Hospitalization History seizures 12/2015
--- OUTSIDE RECORDS SUMMARY | 2018-07-01 14:15 | XMS REPORT ---
Author Author JENIFER BRAY Organization [facility] Address [address] [place] [address] Care Team Providers Care Electric Motor Tester Name Role Phone KATARINA JENIFER Unavailable PROBLEMS Type Condition ICD9-CM Code QAD90-EO Code Onset Dates Condition Status SNOMED Code Problem Anxiety F41.9 Active 97526176 Problem Unsteady gait R26.81 Active 64661094 Problem Unspecified mental disorder due to known physiological condition F09 Active 895971397 Problem Mood disorder F39 Active 91308153 Problem Other chronic pain G89.29 Active 08176700 Problem Depressive disorder, not elsewhere classified F32.9 Active 02467913 Problem Other chronic pain G89.29 Active 99461634 Problem Major depressive disorder, recurrent, moderate F33.1 Active 33267825 Problem Dementia with behavioral disturbance, unspecified dementia type F03.91 Active 0408368763821 Problem Sleep apnea, unspecified type G47.30 Active 95792935 Problem Degenerative brain disorder G31.9 Active 25686614 ALLERGIES No Information ENCOUNTERS Encounter Location Date Diagnosis [facility] [id number] [place] [address] 24432- 4610 December, [facility] [id number] [place] [address] 03532- 2396 December, [facility] [id number] [place] [address] 28518- 4438 Nov, Major depressive disorder, recurrent, moderate F33.1 [facility] [id number] [place] [address] 33268- 6855 Nov, [facility] [id number] [place] [address] 67530- 0405 Nov, [facility] [address] [address] Nov, [facility] [id number] [address] Nov, [facility] [address], [place] [address] Nov, Mood disorder F39 [facility] [address] [id number], [place] [address] 6[address] Nov, Depressive disorder, not elsewhere classified F32.9 and Cognitive change R41.89 [facility] [address]65[address], [place] [address] Nov, [facility] [address], [place] [address] Nov, [facility] [address] [place] [id number] Oct, Tear of skin of plantar aspect of right foot, initial encounter S91.311A [facility] [address], [place] [address] 69[address] Oct, [facility] [address] [id number] [id number] [address] Oct, [facility] [id number] [id number] Oct, [facility] [id number] [id number] Oct, [facility] [id number] [id number] 28 Sep, 2017 [facility] [place] [facility] [id number] [id number] 14 Sep, 2017 [facility] [address] [id number] [id number] 13 Sep, 2017 [facility] [id number] [id number] 09 Sep, 2017 [facility] [address] [id number], [place] [address] 44[address] Sep, [facility] [address] [id number], [place] [address] 6[address] Sep, Other chronic pain G89.29 and Pain in left knee M25.562 [facility] [address], [place] [address] Sep, [facility] [address] [id number] Sep, Plantar fasciitis of left foot M72.2 and Pain in right knee M25.561 [facility] [id number] [place] [id number] Aug, [facility] [id number] [place] [address] 34716- 1086 Aug, [facility] [id number] [place] [address] 87913- 8317 Aug, [facility] [id number] [place] [address] 79772- 4497 Aug, Chronic daily headache R51 [facility] [id number] [place] [address] 87412- 2386 Aug, [facility] [address] [id number] Aug, Edema, unspecified type R60.9 ; Weight gain R63.5 and Sleep apnea, unspecified type G47.[address] [facility] [address] [id number] Jul, Acute pain of left knee M25.562 and Plantar fasciitis of left foot M72.2 [facility] [id number] [place] [address] 31313- 5436 Jul, [facility] [address] [id number] Jul, Plantar fasciitis of left foot M72.2 and Chronic daily headache R51 [facility] [id number] [place] [id number] Jul, [facility] [id number] [id number] Jun, [facility] [address], [place] [address] 2546 Jun, [facility] [address] [id number] [id number] Jun, [facility] [id number] [place] [id number] Jun, [facility] [id number] [place] [id number] May, [facility] [id number] [place] [id number] May, [facility] [address]00565[address], [place] [address]46 May, Stress incontinence of urine N39.3 [facility] [address] [id number] [id number] May, [facility] [address] [place] [id number] May, Encounter for examination for admission to [facility] Z02.2 ; Toxoplasmosis B58.9 ; Seizures R56.9 ; Major depressive disorder, recurrent, moderate F33.1 ; Degenerative brain disorder G31.9 and Unsteady gait R26.81 [facility] [address]00565100[place], [place] [address] May, [facility] [address]65100[place], [place] [address] 5636 May, Mood disorder F39 [facility] [address]65100[place], [place] [address]- 4216 May, [facility] [address]65100[place], [place] [address]- 2546 Apr, [facility] [id number], [place] [address] 5280 Mar, [facility] [place] [facility] [address] [id number] [place] [address]- 74[address] Mar, [facility] [place] [facility] [address] [id number] [place] [address]- 7282 Mar, [facility] [place] [facility] [address] [id number] [place] [address]- 7234 Mar, [facility] [place] [facility] [address] [id number] [place] [address]- 2357 Mar, [facility] [place] [facility] [address] [id number] [place] [address]- 5262 Mar, Stress incontinence of urine N39.3 [facility] [id number] [place] [address], [place] [id number] Mar, [facility] [place] [facility] [address] [id number] [place] [address]- 9283 Feb, [facility] [place] [facility] [address] [id number] [place] [address]- 4986 Feb, [facility] [place] [facility] [address] [id number] [place] [address]- 1041 Feb, [facility] [place] [facility] [address] [id number] [place] [address]- 2078 Feb, [facility] [place] [facility] [address] [id number] [place] [address]- 9284 Feb, [facility] [place] [facility] [address] [id number], [place] [address]- 5828 Feb, [facility] [place] [facility] [address] [id number] [place] [address]- 0902 Feb, [facility] [place] [facility] [address] [id number] [place] [address] [address] Jan, [facility] [place] [facility] [address] [id number] [place] [address]- 7290 Jan, [facility] [place] [facility] [address], [place] [address]- 5450 Jan, [facility] [address] [place] [address] 93067- 2278 Jan, [facility] [id number] [place] [address] 46779- 7338 Jan, [facility] [id number] [place] [address] 73904- 9010 Jan, [facility] [id number] [place] [address] 13299- 7255 Jan, [facility] [id number] [place] [address] 47932- 4790 Jan, General weakness R53.1 and Dementia with behavioral disturbance, unspecified dementia type F03.91 [facility] [id number] [place] [address] 77314- 0676 December, [facility] [id number] [place] [address] 90640- 6334 December, Other chronic pain G89.29 [facility] [id number] [place] [address] 96373- 5254 December, [facility] [address] [place] [address] 40898- 1997 December, Unsteady gait R26.81 ; Generalized weakness R53.1 ; Unspecified mental disorder due to known physiological condition F09 and Generalized headaches R51 [facility] [address], [place] [address]- 7307 December, [facility] [id number] [place] [address] 70251- 2817 Nov, Anxiety F41.9 [facility] [address] [place] [address] 30036- 6044 Nov, Mood disorder F39 [facility] [id number] [place] [address] 81987- 5837 Oct, [facility] [address], [place] [address]- 6449 Oct, Anxiety F41.9 [facility] [id number] [place] [address] 16158- 8310 Oct, Other chronic pain G89.29 [facility] [id number] [place] [address] 89672- 0293 Sep, Other chronic pain G89.29 ; Pain in left knee M25.562 ; Pain in right knee M25.561 and Anxiety F41.9 [facility] [id number] [place] [address] 72809- 9221 Sep, MDD (major depressive disorder), recurrent episode, mild F33.0 ; Degenerative brain disorder G31.9 and Other long-term (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 Z79.899 [facility] [id number] [place] [address] 62553- 2582 Sep, [facility] [id number] [place] [address] 10880- 9888 Sep, [facility] [id number] [place] [address] 54336- 0024 Sep, Mood disorder F39 ; Pain of left leg M79.605 and Pain in right leg M79.604 [facility] [id number] [place] [address] 03729- 9606 Sep, Seizures R56.9 [facility] [id number] [place] [address] 79924- 1177 Sep, [facility] [id number] [place] [address] 55464- 0315 Sep, [facility] [id number] [place] [address] 41930- 9807 Sep, [facility] [id number] [place] [address] 00665- 3365 Aug, Bronchitis J40 [facility] [id number] [place] [address] 69917- 9226 Aug, Bronchitis J40 and Encounter for drug screening Z02.83 [facility] [id number] [place] [address] 36069- 9426 Aug, [facility] [id number] [place] [address] 16495- 6478 Aug, Seizures R56.9 [facility] [id number] [place] [address] 88877- 2366 Aug, Seizures R56.9 [facility] [id number] [place] [address] 28313- 4736 Aug, Major depressive disorder, recurrent, moderate F33.1 and Seizures R56.9 [facility] [id number] [place] [address] 92869- 5722 Aug, [facility] [id number] [place] [address] 85886- 4083 Aug, [facility] [id number] [place] [address] 97633- 7109 Aug, Major depressive disorder, recurrent, moderate F33.1 and Seizures R56.9 [facility] [address] [place] [address] 91238- 0606 Jul, Major depressive disorder, recurrent, moderate F33.1 and Degenerative brain disorder G31.9 [facility] [address] [place] [address] 87049- 4536 Jul, Seizures R56.9 [facility] [id number] [place] [address] 36473- 7476 Apr, [facility] [address] [place] [address] 49858- 6306 Apr, Major depressive disorder, recurrent, moderate F33.1 ; Anxiety F41.9 and Degenerative brain disorder G31.9 [address] [facility] [id number] [address]- 5781 Apr, Mood disorder F39 [address] [facility] [id number], [place] [address]- 0230 Apr, Arthritis M19.90 [address] [facility] [id number], [place] [address]- 0226 Mar, Arthritis M19.90 ; Degenerative brain disorder G31.9 and Nonintractable generalized idiopathic epilepsy without status epilepticus G40.309 [address] [facility] [id number], [place] [address]- 8933 Feb, IMMUNIZATIONS No Known Immunizations SOCIAL HISTORY Never Assessed REASON FOR VISIT Medication refill request PLAN OF CARE VITAL SIGNS MEDICATIONS Medication Instructions Dosage Frequency Start Date End Date Duration Status Symbicort 160-4.5 MCG/ACT Inhalation Twice a day 2 puffs 12h Sep, 30 days Active RESULTS No Results PROCEDURES No Known procedures INSTRUCTIONS MEDICATIONS ADMINISTERED No Known Medications MEDICAL (GENERAL) HISTORY Type Description Date Medical History Toxoplasmosis Medical History migraine Medical History dementia Medical History depression Medical History alzheimers disease Medical History epilepsy Medical History COPD Surgical History cholecystectomy Surgical History appendectomy Surgical History 27 brain surgeries including shunt, [place] Surgical History neck fusion 09/26, 09/28 Surgical History right hand surgery Hospitalization History surgeries Hospitalization History seizures 12/2015
--- OUTSIDE RECORDS SUMMARY | 2018-07-01 14:15 | XMS REPORT ---
Author Author ESTEPHANIA IVAN Organization [facility] Address [address] [place] [address] Care Team Providers Care Boiler Coverer Name Role Phone ESTEPHANIA IVAN Unavailable PROBLEMS Type Condition ICD9-CM Code BBP85-OC Code Onset Dates Condition Status SNOMED Code Problem Unspecified mental disorder due to known physiological condition F09 Active 126532261 Problem Major depressive disorder, recurrent, moderate F33.1 Active 87372117 Problem Dementia with behavioral disturbance, unspecified dementia type F03.91 Active 0527299778782 Problem Mood disorder F39 Active 31639531 Problem Other chronic pain G89.29 Active 86045139 Problem Anxiety F41.9 Active 60998038 Problem Unsteady gait R26.81 Active 29804115 Problem History of brain shunt Z98.2 Active 504711731 Problem PTSD (post-traumatic stress disorder) F43.10 Active 95743324 Problem Sleep apnea, unspecified type G47.30 Active 87687245 Problem Degenerative brain disorder G31.9 Active 66213989 Problem Depressive disorder, not elsewhere classified F32.9 Active 79921001 Problem Other chronic pain G89.29 Active 75466253 ALLERGIES No Information ENCOUNTERS Encounter Location Date Diagnosis [facility] [id number] [address] Feb, [facility] [id number] [address] Feb, Other chronic pain G89.29 and Pain in right knee M25.561 [facility] [id number] [place] [address] 17275- 3857 Feb, PTSD (post-traumatic stress disorder) F43.10 [facility] [id number] [address] Feb, [facility] [address] [id number] Jan, Dementia with behavioral disturbance, unspecified dementia type F03.91 ; Other chronic pain G89.29 and Plantar fasciitis M72.[address] [facility] [address] [id number] Jan, Daily headache R51 ; History of brain shunt Z98.2 ; Plantar fasciitis of left foot M72.2 ; Pain in right knee M25.561 and Pain in left knee M25.562 [facility] [id number] [place] [address] 17330- 6953 Jan, [facility] [id number] [place] [address] 59015- 7156 Jan, Pain in right knee M25.561 [facility] [id number] [place] [address] 53047- 0467 Jan, [facility] [id number] [place] [address] 80464- 2704 Jan, [facility] [id number] [place] [address] 50723- 0357 Jan, [facility] [id number] [place] [address] 65125- 5310 December, Other chronic pain G89.[address] [facility] [address] [id number] December, Pain in left knee M25.562 ; Pain in right leg M79.604 ; Other chronic pain G89.29 ; Localized edema R60.0 and PTSD (post-traumatic stress disorder) F43.10 [facility] [id number] [place] [address] 34656- 8840 December, [facility] [id number] [place] [address] 94171- 1545 December, PTSD (post-traumatic stress disorder) F43.10 [facility] [id number] [place] [address] 15932- 6190 December, [facility] [id number] [place] [address] 54876- 1149 December, [facility] [id number] [place] [address] 47743- 3327 December, Depressive disorder, not elsewhere classified F32.9 and Cognitive change R41.89 [facility] [id number] [place] [address] 20322- 2868 Nov, Major depressive disorder, recurrent, moderate F33.1 [facility] [id number] [place] [address] 28914- 9567 Nov, [facility] [id number] [place] [address] 57991- 4565 Nov, [facility] [id number] [place] [address] 53345- 9223 Nov, [facility] [id number] [place] [address] 69805- 5618 Nov, [facility] [id number] [place] [address] 32531- 1530 Nov, Mood disorder F39 [facility] [id number] [place] [address] 79946- 1439 Nov, Depressive disorder, not elsewhere classified F32.9 and Cognitive change R41.89 [facility] [id number] [place] [address] 49321- 8648 Nov, [facility] [id number] [place] [address] 31085- 0171 Nov, [facility] [address] [id number] Oct, Tear of skin of plantar aspect of right foot, initial encounter S91.311A [facility] [address] [address] 0[address] Oct, [facility] [id number] [address] Oct, [facility] [id number] [id number] Oct, [facility] [id number] [id number] Oct, [facility] [id number] [id number] Sep, [facility] [id number] [id number] Sep, [facility] [id number] [id number] Sep, [facility] [id number] [id number] Sep, [facility] [address] [address] 99[address] Sep, [facility] [address] [address] 9586 Sep, Other chronic pain G89.29 and Pain in left knee M25.562 [facility] [address] [address] 1336 Sep, [facility] [address] [id number] Sep, Plantar fasciitis of left foot M72.2 and Pain in right knee M25.561 [facility] [id number] [id number] Aug, [facility] [address] [address] 4806 Aug, [facility] [address] [address] 4[address] Aug, [facility] [address] [address] 5516 Aug, Chronic daily headache R51 [facility] [address] [facility] [id number] [address] Aug, [facility] [address] [id number] Aug, Edema, unspecified type R60.9 ; Weight gain R63.5 and Sleep apnea, unspecified type G47.30 [facility] [address] [id number] Jul, Acute pain of left knee M25.562 and Plantar fasciitis of left foot M72.2 [facility] [address] [id number] [address] Jul, [facility] [address] [id number] Jul, Plantar fasciitis of left foot M72.2 and Chronic daily headache R51 [facility] [address] [id number] [id number] Jul, [facility] [address] [id number] [id number] Jun, [facility] [address] [facility] [id number], [place] [address]- 8186 Jun, [facility] [address] [id number] [id number] Jun, [facility] [address] [id number] [id number] Jun, [facility] [address] [id number] [id number] May, [facility] [address] [id number] [id number] May, [facility] [address] [facility] [id number] [address]- 2546 May, Stress incontinence of urine N39.3 [facility] [address] [id number] [id number] May, [facility] [address] [id number] May, Encounter for examination for admission to custodial Z02.2 ; Toxoplasmosis B58.9 ; Seizures R56.9 ; Major depressive disorder, recurrent, moderate F33.1 ; Degenerative brain disorder G31.9 and Unsteady gait R26.81 [facility] [id number] [place] [address] 76339- 3543 May, [facility] [address] [address]- [address] May, Mood disorder F39 [facility] [id number] [place] [address] 954469- 3364 May, [facility] [id number] [place] [address] 79050- 8461 Apr, [facility] [id number] [place] [address] 43506- 3274 Mar, [facility] [id number] [place] [address] 79353- 8645 Mar, [facility] [id number] [place] [address] 32798- 8266 Mar, [facility] [id number] [place] [address] 30407- 0232 Mar, [facility] [id number] [place] [address] 37719- 9131 Mar, [facility] [id number] [place] [address] 10460- 9642 Mar, Stress incontinence of urine N39.3 [facility] [id number] [place] [address] [id number] Mar, [facility] [id number] [place] [address] [id number]- 9517 Feb, [facility] [id number] [place] [address] 66329- 2174 Feb, [facility] [address] [place] [address]- 6919 Feb, [facility] [address] [facility] [id number] [place] [address]- 2379 Feb, [facility] [address] [facility] [id number] [place] [address]- 4589 Feb, [facility] [address] [facility] [id number] [place] [address]- 6806 Feb, [facility] [address] [facility] [id number] [place] [address]- 9143 Feb, [facility] [address] [facility] [id number] [place] [address]- 9280 Jan, [facility] [address] [facility] [id number] [place] [address]- 4402 Jan, [facility] [address] [address]- 5454 Jan, [facility] [address] [facility] [id number] [place] [address]- 0919 Jan, [facility] [address] [address]- 7461 Jan, [facility] [id number] [address]- 7447 Jan, [facility] [address] [address]- 8296 Jan, [facility] [id number] [address]- 6442 Jan, General weakness R53.1 and Dementia with behavioral disturbance, unspecified dementia type F03.91 [facility] [id number] [address]- 0896 December, [facility] [id number] [address]- 7646 December, Other chronic pain G89.29 [facility] [place] [facility] [id number] [address]- 5132 December, [facility] [id number] [place] [address] 83247- 3059 December, Unsteady gait R26.81 ; Generalized weakness R53.1 ; Unspecified mental disorder due to known physiological condition F09 and Generalized headaches R51 [facility] [id number] [place] [address] 41094- 4140 December, [facility] [id number] [place] [address] 06997- 5060 Nov, Anxiety F41.9 [place] [facility] [id number] [place] [address] 48960- 9057 Nov, Mood disorder F39 [place] [facility] [id number] [place] [address] 14963- 9278 Oct, [place] [id number] [place] [address] 51558- 1770 Oct, Anxiety F41.9 [place] [id number] [place] [address] 09920- 7151 Oct, Other chronic pain G89.29 [place] [id number] [place] [address] 38082- 8829 Sep, Other chronic pain G89.29 ; Pain in left knee M25.562 ; Pain in right knee M25.561 and Anxiety F41.9 [place] [id number] [place] [address] 17728- 5954 Sep, MDD (major depressive disorder), recurrent episode, mild F33.0 ; Degenerative brain disorder G31.9 and Other fci (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 Z79.899 [facility] [id number] [place] [address] 67896- 3142 Sep, [place] [id number] [place] [address] 75828- 9313 Sep, [facility] [address] [place] [address] 46525- 4794 Sep, Mood disorder F39 ; Pain of left leg M79.605 and Pain in right leg M79.604 [facility] [id number] [place] [address] 47408 2546 14 Sep, 2016 Seizures R56.9 [facility] [id number] [place] [address] 02207 2546 Sep, [facility] [id number] [place] [address] 13744- 2546 Sep, [facility] [id number] [place] [address] 00001- 3236 Sep, [facility] [id number] [place] [address] 29769- 0596 Aug, Bronchitis J40 [facility] [id number] [place] [address] 72463- 8253 Aug, Bronchitis J40 and Encounter for drug screening Z02.83 [facility] [id number] [place] [address] 64759- 5972 Aug, [facility] [id number] [place] [address] 90711- 6656 Aug, Seizures R56.9 [facility] [id number] [place] [address] 84448 2546 Aug, Seizures R56.9 [facility] [id number] [place] [address] 79394- 2542 Aug, Major depressive disorder, recurrent, moderate F33.1 and Seizures R56.9 [facility] [id number] [place] [address] 23573 2546 Aug, [facility] [id number] [place] [address] 90192- 7780 Aug, [place] [id number] [place] [address] 27724- 4489 Aug, Major depressive disorder, recurrent, moderate F33.1 and Seizures R56.9 [place] [id number] [place] [address] 21992- 9415 Jul, Major depressive disorder, recurrent, moderate F33.1 and Degenerative brain disorder G31.9 [place] [id number] [place] [address] 58330- 4428 Jul, Seizures R56.9 [place] [id number] [place] [address] 34432- 4344 Apr, [place] [id number] [place] [address] 21849- 2829 Apr, Major depressive disorder, recurrent, moderate F33.1 ; Anxiety F41.9 and Degenerative brain disorder G31.9 [place] [id number] [place] [address] 18018- 5190 Apr, Mood disorder F39 [place] [id number] [place] [address] 55059- 9902 Apr, Arthritis M19.90 [place] [id number] [place] [address] 63647- 0530 Mar, Arthritis M19.90 ; Degenerative brain disorder G31.9 and Nonintractable generalized idiopathic epilepsy without status epilepticus G40.309 [place] [id number] [place] [address] 89963- 0386 Feb, IMMUNIZATIONS No Known Immunizations SOCIAL HISTORY Never Assessed REASON FOR VISIT Controlled Med Refill PLAN OF CARE VITAL SIGNS MEDICATIONS Medication Instructions Dosage Frequency Start Date End Date Duration Status Dix 10-325 MG Orally 3 times a day 1 tablet 8h Sep, 28 days Active RESULTS No Results PROCEDURES No Known procedures INSTRUCTIONS MEDICATIONS ADMINISTERED No Known Medications MEDICAL (GENERAL) HISTORY Type Description Date Medical History Toxoplasmosis Medical History migraine Medical History dementia Medical History depression Medical History alzheimers disease Medical History epilepsy Medical History COPD Surgical History cholecystectomy Surgical History appendectomy Surgical History 27 brain surgeries including shunt, [place] Surgical History neck fusion 09/26, 09/28 Surgical History right hand surgery Hospitalization History surgeries Hospitalization History seizures 12/2015
--- OUTSIDE RECORDS SUMMARY | 2018-07-01 14:15 | XMS REPORT ---
Author Author ESTEPHANIA IVAN Organization [facility] Address [address] [place] [address] Care Team Providers Care Psychological Tests Sales Agent Name Role Phone ESTEPHANIA IVAN Unavailable PROBLEMS Type Condition ICD9-CM Code DWT15-QM Code Onset Dates Condition Status SNOMED Code Problem Unsteady gait R26.81 Active 94653013 Problem Dementia with behavioral disturbance, unspecified dementia type F03.91 Active 3279012154103 Problem Unspecified mental disorder due to known physiological condition F09 Active 052402370 Problem Mood disorder F39 Active 82572679 Problem Other chronic pain G89.29 Active 73013806 Problem Anxiety F41.9 Active 52436007 Problem PTSD (post-traumatic stress disorder) F43.10 Active 73048991 Problem Depressive disorder, not elsewhere classified F32.9 Active 42087639 Problem Degenerative brain disorder G31.9 Active 61405830 Problem Major depressive disorder, recurrent, moderate F33.1 Active 99827217 Problem Other chronic pain G89.29 Active 49998608 Problem Sleep apnea, unspecified type G47.30 Active 37099655 ALLERGIES No Information ENCOUNTERS Encounter Location Date Diagnosis [facility] [id number] [address] Feb, [facility] [id number] [place] [address]690- 4289 December, PTSD (post-traumatic stress disorder) F43.10 [facility] [id number] [place] [address] 16449- 2362 December, [facility] [id number] [place] [address] 33381- 0629 December, [facility] [id number] [place] [address] 67547- 6195 December, Depressive disorder, not elsewhere classified F32.9 and Cognitive change R41.89 [facility] [id number] [address] Nov, Major depressive disorder, recurrent, moderate F33.1 [facility] [id number] [address] Nov, [facility] [id number] [place] [address] 79139- 4531 Nov, [facility] [id number] [address] Nov, [facility] [id number] [place] [address] 24156- 0296 Nov, [facility] [id number] [place] [address] 64701- 8696 Nov, Mood disorder F39 [facility] [id number] [place] [address] 62143- 1264 Nov, Depressive disorder, not elsewhere classified F32.9 and Cognitive change R41.89 [facility] [id number] [address] 379[address] Nov, [facility] [id number] [address] Nov, [facility] [address] [id number] Oct, Tear of skin of plantar aspect of right foot, initial encounter S91.311A [facility] [id number] [address] Oct, [facility] [id number] [address] 14 Oct, 2017 [facility] [id number] [id number] Oct, [facility] [id number] [place] [id number] Oct, [facility] [id number] [id number] Sep, [facility] [id number] [id number] Sep, [facility] [id number] [id number] Sep, [facility] [id number] [address] Sep, [facility] [id number] [address] Sep, [facility] [id number] [place] [address] 92733- 4456 Sep, Other chronic pain G89.29 and Pain in left knee M25.562 [facility] [id number] [place] [address] 93591- 1446 Sep, [facility] [address] [id number] Sep, Plantar fasciitis of left foot M72.2 and Pain in right knee M25.561 [facility] [id number][place] [id number] Aug, [facility] [id number] [address] 0[address] Aug, [facility] [id number] [address] 28[address] Aug, [facility] [id number] [address] Aug, Chronic daily headache R51 [facility] [id number] [address] Aug, [facility] [address] [id number] Aug, Edema, unspecified type R60.9 ; Weight gain R63.5 and Sleep apnea, unspecified type G47.30 [facility] [address] [place] [id number] Jul, Acute pain of left knee M25.562 and Plantar fasciitis of left foot M72.2 [facility] [id number] [address] 2546 Jul, [facility] [address] [place] [id number] Jul, Plantar fasciitis of left foot M72.2 and Chronic daily headache R51 [facility] [id number][place] [address] Jul, [facility] [id number][place] [id number] Jun, [facility] [id number] [address] 8[address] Jun, [facility] [id number][place] [id number] Jun, [facility] [address] [id number] [id number] Jun, [facility] [id number] [id number] May, [facility] [id number][place] [id number] May, [facility] [id number] [address] 2546 May, Stress incontinence of urine N39.3 [facility] [address] [id number] [id number] May, [facility] [address] [id number] May, Encounter for examination for admission to detention Z02.2 ; Toxoplasmosis B58.9 ; Seizures R56.9 ; Major depressive disorder, recurrent, moderate F33.1 ; Degenerative brain disorder G31.9 and Unsteady gait R26.81 [facility] [id number] [address] May, [facility] [address] [id number] [place] [address] 7936 May, Mood disorder F39 [facility] [place] [facility] [address] [id number] [place] [address]- 7048 May, [facility] [place] [facility] [id number] [place] [address], [place] [address]- 1272 Apr, [facility] [place] [facility] [address] [id number] [place] [address]- 9424 Mar, [facility] [place] [facility] [id number] [place] [address], [place] [address]- 7279 Mar, [facility] [place] [facility] [address] [id number] [place] [address]- 2709 Mar, [facility] [place] [facility] [id number] [place] [address], [place] [address]- 3675 Mar, [facility] [place] [facility] [address] [id number] [place] [address]- 4045 Mar, [facility] [place] [facility] [id number] [place] [address], [place] [address]- 9222 Mar, Stress incontinence of urine N39.3 [facility] [address] [id number] [id number] Mar, [facility] [place] [facility] [address] [facility] [id number], [place] [address]- 9642 Feb, [facility] [place] [facility] [address] [id number], [place] [address]- 6093 Feb, [facility] [place] [facility] [address] [facility] [id number] [place] [address]- 2215 Feb, [facility] [place] [facility] [address] [facility] [id number], [place] [address]- 3897 Feb, [facility] [place] [facility] [address] [facility] [id number] [place] [address] 57156- 0442 Feb, [facility] [id number] [address]- 2812 Feb, [facility] [address] [facility] [id number], [place] [address]- 1112 Feb, [facility] [id number] [address]- 0604 Jan, [facility] [id number] [address]- 3957 Jan, [facility] [id number] [address]- 4518 Jan, [facility] [id number] [address]- 9728 Jan, [facility] [id number] [address]- 0256 Jan, [facility] [id number] [address]- 1466 Jan, [facility] [id number] [address]- 1070 Jan, [facility] [id number] [address]- 4[address] Jan, General weakness R53.1 and Dementia with behavioral disturbance, unspecified dementia type F03.91 [facility] [id number] [address]- 8186 December, [facility] [id number] [address]- 5328 December, Other chronic pain G89.29 [facility] [id number] [address]- 8281 December, [facility] [id number] [address]- 8188 December, Unsteady gait R26.81 ; Generalized weakness R53.1 ; Unspecified mental disorder due to known physiological condition F09 and Generalized headaches R51 [facility] [id number] [place] [address]74- 0640 December, [facility] [id number] [place] [address] 30492- 1540 Nov, Anxiety F41.9 [facility] [id number] [place] [address] 74026- 2681 Nov, Mood disorder F39 [facility] [id number] [place] [address] 99947- 9681 Oct, [facility] [id number] [place] [address] 35058- 9481 Oct, Anxiety F41.9 [address] [facility] [id number] [place] [address] 95971- 5474 Oct, Other chronic pain G89.29 [address] [id number] [place] [address] 81264- 0581 Sep, Other chronic pain G89.29 ; Pain in left knee M25.562 ; Pain in right knee M25.561 and Anxiety F41.9 [address] [id number] [place] [address] 88032- 1783 Sep, MDD (major depressive disorder), recurrent episode, mild F33.0 ; Degenerative brain disorder G31.9 and Other fpc (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 Z79.899 [facility] [id number] [place] [address] 11334- 3777 Sep, [facility] [id number] [place] [address] 60930- 1985 Sep, [facility] [id number] [place] [address] 96588- 6168 Sep, Mood disorder F39 ; Pain of left leg M79.605 and Pain in right leg M79.604 [facility] [id number] [address]- 4976 14 Sep, 2016 Seizures R56.9 [facility] [id number] [place] [address] 27037 2546 08 Sep, 2016 [facility] [id number] [place] [address] 55303 2546 Sep, [facility] [id number] [place] [address] 47734 2546 Sep, [facility] [id number] [place] [address] 78877 2546 Aug, Bronchitis J40 [facility] [address] [address] 2546 Aug, Bronchitis J40 and Encounter for drug screening Z02.83 [facility] [id number] [place] [address] 24870- 8856 Aug, [facility] [id number] [place] [address] 19060 2546 Aug, Seizures R56.9 [facility] [id number] [place] [address] 81610 2546 Aug, Seizures R56.9 [facility] [id number] [place] [address] 59524 2546 Aug, Major depressive disorder, recurrent, moderate F33.1 and Seizures R56.9 [facility] [id number] [place] [address] 39804 2546 Aug, [facility] [id number] [place] [address] 22051 2546 Aug, [facility] [id number] [place] [address] 98816 2546 Aug, Major depressive disorder, recurrent, moderate F33.1 and Seizures R56.9 [facility] [id number] [place] [address] 568570- 1509 Jul, Major depressive disorder, recurrent, moderate F33.1 and Degenerative brain disorder G31.9 [address] [address] [address]- 4992 Jul, Seizures R56.9 [address] [id number], [place] [address]- 2041 Apr, [address] [id number] [place] [address] 58357- 1468 Apr, Major depressive disorder, recurrent, moderate F33.1 ; Anxiety F41.9 and Degenerative brain disorder G31.9 [address] [address] [place] [address] 54912- 5258 Apr, Mood disorder F39 [address] [address] [place] [address] 68502- 6598 Apr, Arthritis M19.90 [address] [address] [place] [address] 75250- 2606 Mar, Arthritis M19.90 ; Degenerative brain disorder G31.9 and Nonintractable generalized idiopathic epilepsy without status epilepticus G40.309 [address] [facility] [address] [place] [address] 77664- 0101 Feb, IMMUNIZATIONS No Known Immunizations SOCIAL HISTORY Never Assessed REASON FOR VISIT Decrease in Wellbutrin PLAN OF CARE VITAL SIGNS MEDICATIONS Medication Instructions Dosage Frequency Start Date End Date Duration Status Wellbutrin SR 100 MG Orally Twice a day 1 tablet 12h May, Active RESULTS No Results PROCEDURES No Known procedures INSTRUCTIONS MEDICATIONS ADMINISTERED No Known Medications MEDICAL (GENERAL) HISTORY Type Description Date Medical History Toxoplasmosis Medical History migraine Medical History dementia Medical History depression Medical History alzheimers disease Medical History epilepsy Medical History COPD Surgical History cholecystectomy Surgical History appendectomy Surgical History 27 brain surgeries including shunt, [place] Surgical History neck fusion 09/26, 09/28 Surgical History right hand surgery Hospitalization History surgeries Hospitalization History seizures 12/2015
--- OUTSIDE RECORDS SUMMARY | 2018-07-01 14:16 | XMS REPORT ---
Author Author JENIFER RBAY Organization [facility] Address [address] [place] [address] Care Team Providers Care Manager Er Name Role Phone KATARINA JENIFER Unavailable PROBLEMS Type Condition ICD9-CM Code HHO98-SD Code Onset Dates Condition Status SNOMED Code Problem Anxiety F41.9 Active 82460503 Problem Unsteady gait R26.81 Active 64849254 Problem Unspecified mental disorder due to known physiological condition F09 Active 143279874 Problem Mood disorder F39 Active 89546877 Problem Other chronic pain G89.29 Active 21886994 Problem Depressive disorder, not elsewhere classified F32.9 Active 91168281 Problem Other chronic pain G89.29 Active 98238336 Problem Major depressive disorder, recurrent, moderate F33.1 Active 17915389 Problem Dementia with behavioral disturbance, unspecified dementia type F03.91 Active 2529601042225 Problem Sleep apnea, unspecified type G47.30 Active 76007847 Problem Degenerative brain disorder G31.9 Active 09031193 ALLERGIES No Information ENCOUNTERS Encounter Location Date Diagnosis [facility] [id number] [place] [address] 02118- 6652 December, [facility] [id number] [place] [address] 68648- 9746 December, [facility] [id number] [place] [address] 66086- 4482 Nov, Major depressive disorder, recurrent, moderate F33.1 [facility] [id number] [place] [address] 71967- 3258 Nov, [facility] [id number] [place] [address] 68975- 5624 Nov, [facility] [address] [address]- 8758 Nov, [facility] [id number] [address] [address] Nov, [facility] [address] [address] 2495 Nov, Mood disorder F39 [facility] [address] [id number] [address] 8265 Nov, Depressive disorder, not elsewhere classified F32.9 and Cognitive change R41.89 [facility] [address] [address] 1518 Nov, [facility] [address] [address] 6[address] Nov, [facility] [address] [place] [id number] Oct, Tear of skin of plantar aspect of right foot, initial encounter S91.311A [facility] [address] [address] 2519 Oct, [facility] [address] [id number] [address] 1595 Oct, [facility] [id number] [id number] Oct, [facility] [id number] [place] [id number] Oct, [facility] [id number] [place] [id number] 28 Sep, 2017 [facility] [place] [facility] [id number] [place] [id number] 14 Sep, 2017 [facility] [id number] [id number] 13 Sep, 2017 [facility] [id number] [place] [id number] 09 Sep, 2017 [facility] [address] [id number] [address] 5805 Sep, [facility] [address] [id number] [address] 2356 Sep, Other chronic pain G89.29 and Pain in left knee M25.562 [facility] [address]65[address] [address] 9132 Sep, [facility] [address] [id number] Sep, Plantar fasciitis of left foot M72.2 and Pain in right knee M25.561 [facility] [id number] [place] [address] [id number] Aug, [facility] [id number] [place] [address] 33829- 3386 Aug, [facility] [id number] [place] [address] 28021- 9802 Aug, [facility] [id number] [place] [address] 78250- 1311 Aug, Chronic daily headache R51 [facility] [id number] [place] [address] 13951- 8692 Aug, [facility] [address] [id number] Aug, Edema, unspecified type R60.9 ; Weight gain R63.5 and Sleep apnea, unspecified type G47.[address] [facility] [address] [id number] Jul, Acute pain of left knee M25.562 and Plantar fasciitis of left foot M72.2 [facility] [id number] [place] [address] 95509- 1416 Jul, [facility] [address] [id number] Jul, Plantar fasciitis of left foot M72.2 and Chronic daily headache R51 [facility] [id number] [place] [address] [id number] Jul, [facility] [id number] [place] [id number] Jun, [facility] [address] [address]- 2546 Jun, [facility] [address] [id number] [id number] Jun, [facility] [id number] [place] [address] [id number] Jun, [facility] [id number] [place] [address] [id number] May, [facility] [id number] [place] [address] [id number] May, [facility] [address]65100[place] [address]- 2546 May, Stress incontinence of urine N39.3 [facility] [address] [id number] [id number] May, [facility] [address] [place] [id number] May, Encounter for examination for admission to halfway Z02.2 ; Toxoplasmosis B58.9 ; Seizures R56.9 ; Major depressive disorder, recurrent, moderate F33.1 ; Degenerative brain disorder G31.9 and Unsteady gait R26.81 [facility] [address]00565100[place] [address]- 8956 May, [facility] [address]65100[place] [address] 1906 May, Mood disorder F39 [facility] [address]005[address] [address]- 2256 May, [facility] [address]65100[place] [address]- 2546 Apr, [facility] [address] [id number] [address]- 1173 Mar, [facility] [place] [facility] [address] [id number] [place] [address]- 3571 Mar, [facility] [place] [facility] [address] [id number] [place] [address]- 0018 Mar, [facility] [place] [facility] [address] [id number] [place] [address]- 7192 Mar, [facility] [place] [facility] [address] [id number] [place] [address]- 2056 Mar, [facility] [place] [facility] [address] [id number] [place] [address]- 0521 Mar, Stress incontinence of urine N39.3 [facility] [id number] [place] [address], [place] [id number] Mar, [facility] [place] [facility] [address] [id number] [place] [address]- 1966 Feb, [facility] [place] [facility] [address] [id number] [place] [address]- 2846 Feb, [facility] [place] [facility] [address] [id number] [place] [address]- 7466 Feb, [facility] [place] [facility] [address] [id number] [place] [address]- 3687 Feb, [facility] [place] [facility] [address] [id number] [place] [address]- 6588 Feb, [facility] [place] [facility] [address] [id number] [address]- 5151 Feb, [facility] [place] [facility] [address] [id number] [place] [address]- 8412 Feb, [facility] [place] [facility] [address] [id number] [id number] 1198 Jan, [facility] [place] [facility] [address] [id number] [place] [address]- 9895 Jan, [facility] [place] [facility] [address] [address]- 0637 Jan, [facility] [id number] [place] [address] 00574- 2281 Jan, [facility] [id number] [place] [address] 56945- 2411 Jan, [facility] [id number] [place] [address] 03469- 4233 Jan, [facility] [id number] [place] [address] 00027- 8171 Jan, [facility] [id number] [place] [address] 53666- 5567 Jan, General weakness R53.1 and Dementia with behavioral disturbance, unspecified dementia type F03.91 [facility] [id number] [place] [address] 52432- 8491 December, [facility] [id number] [place] [address] 61571- 2184 December, Other chronic pain G89.29 [facility] [id number] [place] [address] 09774- 3506 December, [facility] [id number] [place] [address] 88985- 8915 December, Unsteady gait R26.81 ; Generalized weakness R53.1 ; Unspecified mental disorder due to known physiological condition F09 and Generalized headaches R51 [facility] [address] [address]- 9987 December, [facility] [id number] [place] [address] 84941- 2083 Nov, Anxiety F41.9 [facility] [id number] [place] [address] 89603- 6655 Nov, Mood disorder F39 [facility] [id number] [place] [address] 99736- 9975 Oct, [facility] [address] [address]- 5639 Oct, Anxiety F41.9 [facility] [id number] [place] [address] 36457- 9598 Oct, Other chronic pain G89.29 [facility] [id number] [place] [address] 45683- 5647 Sep, Other chronic pain G89.29 ; Pain in left knee M25.562 ; Pain in right knee M25.561 and Anxiety F41.9 [facility] [id number] [place] [address] 91039- 1113 Sep, MDD (major depressive disorder), recurrent episode, mild F33.0 ; Degenerative brain disorder G31.9 and Other skilled nursing (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 Z79.899 [facility] [id number] [place] [address] 64149- 2297 Sep, [facility] [id number] [place] [address] 30096- 3675 Sep, [facility] [id number] [place] [address] 03195- 9476 Sep, Mood disorder F39 ; Pain of left leg M79.605 and Pain in right leg M79.604 [facility] [id number] [place] [address] 06407- 3584 Sep, Seizures R56.9 [facility] [id number] [place] [address] 26499- 2046 Sep, [facility] [id number] [place] [address] 17033- 3957 Sep, [facility] [id number] [place] [address] 78934- 0508 Sep, [facility] [id number] [place] [address] 41348- 3419 Aug, Bronchitis J40 [facility] [id number] [place] [address] 47058- 1266 Aug, Bronchitis J40 and Encounter for drug screening Z02.83 [facility] [id number] [place] [address] 85308- 4746 Aug, [facility] [id number] [place] [address] 75095- 2422 Aug, Seizures R56.9 [facility] [id number] [place] [address] 81819- 1056 Aug, Seizures R56.9 [facility] [id number] [place] [address] 49514- 2016 Aug, Major depressive disorder, recurrent, moderate F33.1 and Seizures R56.9 [facility] [id number] [place] [address] 89155- 9999 Aug, [facility] [id number] [place] [address] 14573- 0860 Aug, [facility] [id number] [place] [address] 42208- 8793 Aug, Major depressive disorder, recurrent, moderate F33.1 and Seizures R56.9 [facility] [id number] [place] [address] 26964- 8786 Jul, Major depressive disorder, recurrent, moderate F33.1 and Degenerative brain disorder G31.9 [facility] [id number] [place] [address] 94396- 6026 Jul, Seizures R56.9 [facility] [id number] [place] [address] 10389- 9276 Apr, [facility] [id number] [place] [address] 86143- 3056 Apr, Major depressive disorder, recurrent, moderate F33.1 ; Anxiety F41.9 and Degenerative brain disorder G31.9 [facility] [address] [facility] [id number] [address]- 3590 Apr, Mood disorder F39 [facility] [address] [id number] [address]- 6949 Apr, Arthritis M19.90 [address] [facility] [id number] [address]- 0401 Mar, Arthritis M19.90 ; Degenerative brain disorder G31.9 and Nonintractable generalized idiopathic epilepsy without status epilepticus G40.309 [address] [facility] [id number] [address]- 9417 Feb, IMMUNIZATIONS No Known Immunizations SOCIAL HISTORY Never Assessed REASON FOR VISIT SC placement PLAN OF CARE VITAL SIGNS MEDICATIONS Unknown Medications RESULTS No Results PROCEDURES No Known procedures INSTRUCTIONS MEDICATIONS ADMINISTERED No Known Medications MEDICAL (GENERAL) HISTORY Type Description Date Medical History Toxoplasmosis Medical History migraine Medical History dementia Medical History depression Medical History alzheimers disease Medical History epilepsy Medical History COPD Surgical History cholecystectomy Surgical History appendectomy Surgical History 27 brain surgeries including shunt, [place] Surgical History neck fusion 09/26, 09/28 Surgical History right hand surgery Hospitalization History surgeries Hospitalization History seizures 12/2015
--- OUTSIDE RECORDS SUMMARY | 2018-07-01 14:16 | XMS REPORT ---
Author Author JENIFER BRAY Organization [facility] Address [address] [place] [address] Care Team Providers Care Toll Repairer Central Office Name Role Phone JENIFER BRAY Unavailable PROBLEMS Type Condition ICD9-CM Code SNT22-BB Code Onset Dates Condition Status SNOMED Code Problem Other chronic pain G89.29 Active 16997419 Problem Unspecified mental disorder due to known physiological condition F09 Active 375928302 Problem Anxiety F41.9 Active 53728132 Problem Mood disorder F39 Active 46454904 Problem Other chronic pain G89.29 Active 74761140 Problem Sleep apnea, unspecified type G47.30 Active 41295389 Problem Dementia with behavioral disturbance, unspecified dementia type F03.91 Active 3662180674750 Problem Unsteady gait R26.81 Active 18326242 Problem Degenerative brain disorder G31.9 Active 24968094 Problem Major depressive disorder, recurrent, moderate F33.1 Active 42707152 ALLERGIES No Information ENCOUNTERS Encounter Location Date Diagnosis [place] [id number] [place] [address] 14273- 5655 Nov, [place] [id number] [place] [address] 02727- 3282 Nov, [place] [id number] [place] [address] 42923- 2077 Nov, [facility] [address] [place] [id number] Oct, Tear of skin of plantar aspect of right foot, initial encounter S91.311A [place] [id number] [place] [address] 97508- 9457 Oct, [place] [id number] [place] [address] 35553- 9723 Oct, [facility] [address] [id number] Oct, [facility] [id number] [id number] Oct, [facility] [id number][place] [id number] Sep, [facility] [place] [id number][place] [id number] Sep, [facility] [id number][place] [id number] Sep, [facility] [id number] [id number] Sep, [facility] [address], [place] [address] Sep, [facility] [address], [place] [address] Sep, Other chronic pain G89.29 and Pain in left knee M25.562 [facility] [id number] [address] Sep, [facility] [address] [place] [phone] Sep, Plantar fasciitis of left foot M72.2 and Pain in right knee M25.561 [facility] [place] [id number][place] [id number] Aug, [facility] [id number], [place] [address] Aug, [facility] [id number], [place] [address] Aug, [facility] [address] [address] Aug, Chronic daily headache R51 [facility] [id number] [address] Aug, [facility] [address] [id number] Aug, Edema, unspecified type R60.9 ; Weight gain R63.5 and Sleep apnea, unspecified type G47.[address] [facility] [address] [id number] Jul, Acute pain of left knee M25.562 and Plantar fasciitis of left foot M72.2 [facility] [address], [place] [address] Jul, [facility] [address] [id number] Jul, Plantar fasciitis of left foot M72.2 and Chronic daily headache R51 [facility] [id number][place] [id number] Jul, [facility] [id number][place] [id number] Jun, [facility] [id number], [place] [address]46 Jun, [facility] [id number] [place] [id number] Jun, [facility] [id number] [place] [id number] Jun, [facility] [id number] [id number] May, [facility] [id number] [place] [id number] May, [facility] [id number] [address] 2542 May, Stress incontinence of urine N39.3 [facility] [id number] [place] [id number] May, [facility] [id number] May, Encounter for examination for admission to skilled nursing Z02.2 ; Toxoplasmosis B58.9 ; Seizures R56.9 ; Major depressive disorder, recurrent, moderate F33.1 ; Degenerative brain disorder G31.9 and Unsteady gait R26.81 [facility] [id number] [place] [address] 52458- 4053 May, [facility] [id number] [place] [address] 27760- 1090 May, Mood disorder F39 [facility] [id number] [place] [address] 89284- 9268 May, [facility] [id number] [place] [address] 92758- 0577 Apr, [facility] [id number] [place] [address] 91497- 9691 Mar, [facility] [id number] [place] [address] 89102- 4377 Mar, [facility] [id number] [place] [address] 85556- 5725 Mar, [facility] [id number] [place] [address] 80715- 0799 Mar, [facility] [id number] [place] [address] 64363- 5422 Mar, [facility] [id number] [place] [address] 01347- 3415 Mar, Stress incontinence of urine N39.3 [facility] [id number] [place] [id number] Mar, [facility] [id number] [place] [address] 97185- 3524 Feb, [facility] [id number] [place] [address] 18333- 0816 Feb, [facility] [id number] [place] [address] 48760- 0182 Feb, [facility] [id number] [place] [address] Feb, [facility] [address] [facility] [id number] [place] [address] Feb, [facility] [address] [facility] [id number] [place] [address]- 9354 Feb, [facility] [address] [place] [address]- 9173 Feb, [facility] [address] [facility] [id number] [place] [address]- 1170 Jan, [facility] [address] [place] [address]- 1029 Jan, [facility] [id number] [place] [address]- 2936 Jan, [facility] [address] [place] [address]- 5199 Jan, [facility] [address], [place] [address]- 7683 Jan, [facility] [address], [place] [address] 7542 Jan, [facility] [address], [place] [address]- 9513 Jan, [facility] [address], [place] [address]- [address]13 Jan, General weakness R53.1 and Dementia with behavioral disturbance, unspecified dementia type F03.91 [facility] [address] [facility] [id number] [address] 6[address] December, [facility] [address], [place] [address]- 9609 December, Other chronic pain G89.29 [facility] [address], [place] [address]- 8089 December, [facility] [address] [place] [address] 01217- 6640 December, Unsteady gait R26.81 ; Generalized weakness R53.1 ; Unspecified mental disorder due to known physiological condition F09 and Generalized headaches R51 [facility] [address] [place] [address] 48437- 4045 December, [facility] [id number] [place] [address] 37861- 7709 Nov, Anxiety F41.9 [place] [id number] [place] [address] 50912- 6324 Nov, Mood disorder F39 [place] [id number] [place] [address] 43775- 8999 Oct, [place] [id number] [place] [address] 51042- 7282 Oct, Anxiety F41.9 [place] [id number] [place] [address] 54457- 5037 Oct, Other chronic pain G89.29 [place] [id number] [place] [address] 39222- 1180 Sep, Other chronic pain G89.29 ; Pain in left knee M25.562 ; Pain in right knee M25.561 and Anxiety F41.9 [place] [address] [place] [address] 46118- 2255 Sep, MDD (major depressive disorder), recurrent episode, mild F33.0 ; Degenerative brain disorder G31.9 and Other nursing home (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 Z79.899 [place] [id number] [place] [address] 59106- 4019 Sep, [place] [id number] [place] [address] 23549- 3309 Sep, [place] [id number] [place] [address] 90267- 0034 Sep, Mood disorder F39 ; Pain of left leg M79.605 and Pain in right leg M79.604 [facility] [id number] [place] [address] 24095- 5866 Sep, Seizures R56.9 [facility] [id number] [place] [address] 74453- 7876 Sep, [facility] [address] [address]85- 7302 Sep, [facility] [id number] [place] [address] 28980- 6540 Sep, [facility] [id number] [place] [address] 04155- 5980 Aug, Bronchitis J40 [facility] [address] [address]- 5413 Aug, Bronchitis J40 and Encounter for drug screening Z02.83 [facility] [id number] [place] [address] 42275- 8538 Aug, [facility] [id number] [place] [address] 76120- 1412 Aug, Seizures R56.9 [facility] [id number] [place] [address] 42023- 1401 Aug, Seizures R56.9 [facility] [id number] [place] [address] 25522- 8604 Aug, Major depressive disorder, recurrent, moderate F33.1 and Seizures R56.9 [facility] [id number] [place] [address] 70806- 9418 Aug, [facility] [id number] [place] [address] 82742- 5777 Aug, [facility] [id number] [place] [address] 97459- 5828 Aug, Major depressive disorder, recurrent, moderate F33.1 and Seizures R56.9 [place] [address] [place] [address] 95589- 5160 Jul, Major depressive disorder, recurrent, moderate F33.1 and Degenerative brain disorder G31.9 [place] [address] [place] [address] 34275- 8588 Jul, Seizures R56.9 [place] [id number] [place] [address] 86875- 1920 Apr, [place] [id number] [place] [address] 13901- 4102 Apr, Major depressive disorder, recurrent, moderate F33.1 ; Anxiety F41.9 and Degenerative brain disorder G31.9 [place] [address] [place] [address] 98470- 1857 Apr, Mood disorder F39 [place] [address] [place] [address] 45987- 5161 Apr, Arthritis M19.90 [place] [address] [place] [address] 75304- 7666 Mar, Arthritis M19.90 ; Degenerative brain disorder G31.9 and Nonintractable generalized idiopathic epilepsy without status epilepticus G40.309 [place] [address] [place] [address] 39499- 2106 Feb, IMMUNIZATIONS No Known Immunizations SOCIAL HISTORY [...] Surgical History 27 brain surgeries including shunt, [place] Surgical History neck fusion 09/26, 09/28 Surgical History right hand surgery Hospitalization History surgeries Hospitalization History seizures 12/2015
--- OUTSIDE RECORDS SUMMARY | 2018-07-01 14:16 | XMS REPORT ---
Author Author JENIFER BRAY [facility] Address [address] [place] [address] Care Team Providers Care Saxophone Assembler Name Role Phone JENIFER BRAY Unavailable PROBLEMS Type Condition ICD9-CM Code [id number] Code Onset Dates Condition Status SNOMED Code Problem Dementia with behavioral disturbance, unspecified dementia type F03.91 Active 4213950153477 Problem Unsteady gait R26.81 Active 82189080 Problem Other chronic pain G89.29 Active 65222151 Problem Mood disorder F39 Active 46860620 Problem Unspecified mental disorder due to known physiological condition F09 Active 626951890 Problem Anxiety F41.9 Active 69695761 ALLERGIES Substance Reaction Event Type Date Status Morphine Sulfate Unknown Drug Allergy Sep, Active SOCIAL HISTORY Never Assessed PLAN OF CARE VITAL SIGNS Height 65 in 2016-10-19 Weight 123 lbs 2016-10-19 Temperature 98.5 degrees Fahrenheit 2016-10-19 Heart Rate 100 bpm 2016-10-19 Respiratory Rate 20 2016-10-19 BMI 20.47 kg/m2 2016-10-19 Blood pressure systolic 120 mmHg 2016-10-19 Blood pressure diastolic 66 mmHg 2016-10-19 MEDICATIONS Medication Instructions Dosage Frequency Start Date End Date Duration Status Memantine HCl 5 mg Orally Once a day 1 tablet 24h Sep, 30 day(s ) Active Omeprazole 20 mg Orally Once a day 1 capsules 24h Active Depakote 500 mg Orally 2 times a day 3 capsules 12h Active Ondansetron 4 MG Orally every 8 hrs PRN 1 tablet on the tongue and allow to dissolve Aug, Active Advair Diskus 500-50 MCG/DOSE Inhalation Twice a day 1 puff 12h Sep, Active ProAir HFA 108 (90 Base) MCG/ACT Inhalation every 4 hrs 2 puffs as needed for cough or short of breath 4h 30 days Active Keppra 500 MG Orally 2 times a day 3 capsules 12h Active Lexapro 20 mg Orally Once a day 1 tablet 24h Active [place] 10-325 MG Orally every 6 hrs 1 tablet as needed 6h Sep, Active Clonazepam 0.5 MG Orally Twice a day 1 tablet 12h Sep, Active Amitriptyline HCl 25 MG Orally Once a day 1 tablet at bedtime 24h Apr, Active Venlafaxine HCl ER 225 MG Orally Once a day 1 tablet with food 24h Sep, Active RESULTS No Results PROCEDURES Procedure Date Ordered Result Body Site JOINT INJECTION-LARGE JOINT 2016-10-19 N/A DRAIN/INJECT, JOINT/BURSA Oct 19, 2016 IMMUNIZATIONS No Known Immunizations MEDICAL (GENERAL) HISTORY Type Description Date Medical History Toxoplasmosis Medical History migraine Medical History dementia Medical History depression Medical History alzheimers disease Medical History epilepsy Surgical History cholecystectomy Surgical History appendectomy Surgical History 27 brain surgeries including shunt, [place] Surgical History neck fusion 09/26, 09/28 Surgical History right hand surgery Hospitalization History surgeries Hospitalization History seizures 12/2015
--- OUTSIDE RECORDS SUMMARY | 2018-07-01 14:16 | XMS REPORT ---
Author Author ESTEPHANIA IVAN Organization [facility] Address [address] [place] [address] Care Team Providers Care Repacker Name Role Phone ESTEPHANIA IVAN Unavailable PROBLEMS Type Condition ICD9-CM Code ZSO73-MQ Code Onset Dates Condition Status SNOMED Code Problem Anxiety F41.9 Active 95669725 Problem Unsteady gait R26.81 Active 72599383 Problem Unspecified mental disorder due to known physiological condition F09 Active 822330673 Problem Mood disorder F39 Active 53116304 Problem Other chronic pain G89.29 Active 85552249 Problem Depressive disorder, not elsewhere classified F32.9 Active 27731566 Problem Other chronic pain G89.29 Active 76275236 Problem Major depressive disorder, recurrent, moderate F33.1 Active 27220155 Problem Dementia with behavioral disturbance, unspecified dementia type F03.91 Active 5093367009478 Problem Sleep apnea, unspecified type G47.30 Active 26290927 Problem Degenerative brain disorder G31.9 Active 19968294 ALLERGIES No Information ENCOUNTERS Encounter Location Date Diagnosis [place] [id number] [place] [address] 09938- 0603 December, [facility] [id number] [place] [address] 47361- 5021 December, [facility] [id number] [place] [address] 65994- 1624 December, Depressive disorder, not elsewhere classified F32.9 and Cognitive change R41.89 [place] [address] [place] [address] [id number] [place] [address] 95836- 6390 Nov, Major depressive disorder, recurrent, moderate F33.1 [facility] [address] [place] [address] 64462- 2630 Nov, [place] [address] [address] Nov, [facility] [address] [address] Nov, [facility] [address] [address] 8647 Nov, [facility] [id number] [place] [address] 05275- 7447 Nov, Mood disorder F39 [facility] [address] [address] Nov, Depressive disorder, not elsewhere classified F32.9 and Cognitive change R41.89 [facility] [address] [address] 9[address] Nov, [facility] [address] [place] [address] 78151- 8567 Nov, [facility] [address] [id number] Oct, Tear of skin of plantar aspect of right foot, initial encounter S91.311A [facility] [address] [address] 77[address] Oct, [facility] [id number] [address] Oct, [facility] [id number] [id number] Oct, [facility] [id number] [id number] Oct, [facility] [address] [place] [id number] [id number] 28 Sep, 2017 [facility] [id number] [id number] 14 Sep, 2017 [facility] [id number] [id number] 13 Sep, 2017 [facility] [id number] [id number] Sep, [facility] [address] [address]- 9406 Sep, [facility] [address]100[place] [address]- 6261 Sep, Other chronic pain G89.29 and Pain in left knee M25.562 [facility] [address] [place] [address] 69948- 8844 Sep, [facility] [address] [id number] Sep, Plantar fasciitis of left foot M72.2 and Pain in right knee M25.561 [facility] [id number] [place] [address] [id number] Aug, [facility] [address] [place] [address] 87780- 9966 Aug, [facility] [address]100[place] [address] 2961 Aug, [facility] [id number] [place] [address] 11585- 7839 Aug, Chronic daily headache R51 [facility] [id number] [address] 3435 Aug, [facility] [address] [id number] Aug, Edema, unspecified type R60.9 ; Weight gain R63.5 and Sleep apnea, unspecified type G47.30 [facility] [address] [place] [id number] Jul, Acute pain of left knee M25.562 and Plantar fasciitis of left foot M72.2 [facility] [address]100[place] [address]- 6686 Jul, [facility] [id number] Jul, Plantar fasciitis of left foot M72.2 and Chronic daily headache R51 [facility] [id number] [id number] Jul, [facility] [id number] [address] Jun, [facility] [address] [facility] [id number] [address] Jun, [facility] [address] [id number] [id number] Jun, [facility] [address] [id number] [place] [address] [id number] Jun, [facility] [address] [place] [id number] [id number] May, [facility] [id number] [place] [id number] May, [facility] [address]005[address]100[place] [address]- 8466 May, Stress incontinence of urine N39.3 [facility] [id number] [id number] May, [facility] [address] [id number] May, Encounter for examination for admission to senior living Z02.2 ; Toxoplasmosis B58.9 ; Seizures R56.9 ; Major depressive disorder, recurrent, moderate F33.1 ; Degenerative brain disorder G31.9 and Unsteady gait R26.81 [facility] [id number] [address]- [address] May, [facility] [address]65100[place] [address] May, Mood disorder F39 [facility] [id number] [address] May, [facility] [place] [facility] [address] [id number] [place] [address]- 7[address] Apr, [facility] [place] [facility] [address] [id number] [place] [address] 5009 Mar, [facility] [place] [facility] [address] [id number] [place] [address]- 9290 Mar, [facility] [place] [facility] [address] [id number] [place] [address]- 2361 Mar, [facility] [place] [facility] [address] [id number] [place] [address]- 5493 Mar, [facility] [place] [facility] [id number] [place] [address], [place] [address]- 8978 Mar, [facility] [place] [facility] [address] [facility] [id number] [place] [address]- 7723 Mar, Stress incontinence of urine N39.3 [facility] [id number] [place] [address], [place] [id number] Mar, [facility] [place] [facility] [address] [id number] [place] [address]- 9409 Feb, [facility] [place] [facility] [address] [id number] [place] [address]- 3243 Feb, [facility] [place] [facility] [address] [id number] [place] [address]- 9763 Feb, [facility] [place] [facility] [address] [id number] [address]- 6665 Feb, [facility] [place] [facility] [address] [id number] [place] [address]- 2957 Feb, [facility] [place] [facility] [address] [id number] [place] [address]- 4828 Feb, [facility] [place] [facility] [address] [id number] [place] [address]- 9029 Feb, [facility] [place] [facility] [address] [id number] [place] [address]- 5932 Jan, [facility] [address]65[address] [address]- 3024 Jan, [facility] [address]00565100[place] [address]- 6693 Jan, [facility] [address] [address]- 4670 Jan, [facility] [id number] [place] [address] 77928- 2990 Jan, [facility] [address]005[address]100[place] [address]- 1020 Jan, [facility] [address] [address]- [address] Jan, [facility] [address] [address]- 5671 Jan, General weakness R53.1 and Dementia with behavioral disturbance, unspecified dementia type F03.91 [facility] [address]00565100[place] [address]- 9022 December, [facility] [address] [place] [address] [id number] [address]- 4869 December, Other chronic pain G89.29 [facility] [address]100[place] [address]- 9036 December, [facility] [address] [address]- 7931 December, Unsteady gait R26.81 ; Generalized weakness R53.1 ; Unspecified mental disorder due to known physiological condition F09 and Generalized headaches R51 [facility] [address]005[address]100[place] [address]- 5139 December, [facility] [address] [address]- 8989 Nov, Anxiety F41.9 [facility] [address] [place] [address] 73622- 3547 Nov, Mood disorder F39 [facility] [id number] [place] [address] 56726- 8770 Oct, [facility] [id number] [place] [address] 01723- 6834 Oct, Anxiety F41.9 [facility] [id number] [place] [address] 40976- 5807 Oct, Other chronic pain G89.29 [facility] [id number] [place] [address] 52925- 3330 Sep, Other chronic pain G89.29 ; Pain in left knee M25.562 ; Pain in right knee M25.561 and Anxiety F41.9 [facility] [id number] [place] [address] 81251- 7596 Sep, MDD (major depressive disorder), recurrent episode, mild F33.0 ; Degenerative brain disorder G31.9 and Other mcc (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 Z79.899 [facility] [id number] [place] [address] 75861- 2307 Sep, [facility] [id number] [place] [address] 34083- 8372 Sep, [facility] [id number] [place] [address] 43880- 3878 Sep, Mood disorder F39 ; Pain of left leg M79.605 and Pain in right leg M79.604 [facility] [address] [place] [address] 30238- 3005 Sep, Seizures R56.9 [facility] [id number] [place] [address] 66646- 8722 Sep, [facility] [address] [place] [address] 07277- 0125 Sep, [facility] [address] [address]- 0613 Sep, [facility] [id number] [place] [address] 97112- 4576 Aug, Bronchitis J40 [facility] [id number] [place] [address] 28611 2546 Aug, Bronchitis J40 and Encounter for drug screening Z02.83 [facility] [id number] [place] [address] 86832- 2336 Aug, [facility] [id number] [place] [address] 35594- 7666 Aug, Seizures R56.9 [facility] [id number] [place] [address] 01181- 2016 Aug, Seizures R56.9 [facility] [id number] [place] [address] 90610 2545 Aug, Major depressive disorder, recurrent, moderate F33.1 and Seizures R56.9 [facility] [address] [place] [address] 11122- 1096 Aug, [facility] [id number] [place] [address] 97626- 0531 Aug, [facility] [id number] [place] [address] 06864- 9554 Aug, Major depressive disorder, recurrent, moderate F33.1 and Seizures R56.9 [facility] [address] [place] [address] 94066 254 Jul, Major depressive disorder, recurrent, moderate F33.1 and Degenerative brain disorder G31.9 [facility] [address] [place] [address] 45218- 3316 Jul, Seizures R56.9 [facility] [address] [place] [address] 36568 2546 Apr, [facility] [id number] [address]- 5233 Apr, Major depressive disorder, recurrent, moderate F33.1 ; Anxiety F41.9 and Degenerative brain disorder G31.9 [place] [address] [address]- 4201 Apr, Mood disorder F39 [place] [address] [address]- 9690 Apr, Arthritis M19.90 [place] [address] [place] [address] 13493- 0499 Mar, Arthritis M19.90 ; Degenerative brain disorder G31.9 and Nonintractable generalized idiopathic epilepsy without status epilepticus G40.309 [place] [address] [address]- 7921 Feb, IMMUNIZATIONS No Known Immunizations SOCIAL HISTORY Never Assessed REASON FOR VISIT UT Admission PLAN OF CARE Activity Details Follow Up prn Reason: VITAL SIGNS MEDICATIONS Unknown Medications RESULTS No Results PROCEDURES No Known procedures INSTRUCTIONS MEDICATIONS ADMINISTERED No Known Medications MEDICAL (GENERAL) HISTORY Type Description Date Medical History Toxoplasmosis Medical History migraine Medical History dementia Medical History depression Medical History alzheimers disease Medical History epilepsy Medical History COPD Surgical History cholecystectomy Surgical History appendectomy Surgical History 27 brain surgeries including shunt, [place] Surgical History neck fusion 09/26, 09/28 Surgical History right hand surgery Hospitalization History surgeries Hospitalization History seizures 12/2015
--- OUTSIDE RECORDS SUMMARY | 2018-07-01 14:17 | XMS REPORT ---
Author Author JASMEET WINSLOW [facility] Address [address] [place] [address] Care Team Providers Care Steamship Agent Name Role Phone JASMEET WINSLOW Unavailable PROBLEMS Type Condition ICD9-CM Code [id number] Code Onset Dates Condition Status SNOMED Code Problem Dementia with behavioral disturbance, unspecified dementia type F03.91 Active 9257923352951 Problem Unsteady gait R26.81 Active 75121620 Problem Other chronic pain G89.29 Active 11385554 Problem Mood disorder F39 Active 18795687 Problem Unspecified mental disorder due to known physiological condition F09 Active 160289143 Problem Anxiety F41.9 Active 54009246 ALLERGIES Unknown Allergies SOCIAL HISTORY No smoking Hx information available PLAN OF CARE VITAL SIGNS MEDICATIONS Medication Instructions Dosage Frequency Start Date End Date Duration Status Omeprazole 20 mg Orally Once a day 1 capsules 24h Active RESULTS No Results PROCEDURES No Known procedures IMMUNIZATIONS No Known Immunizations
--- OUTSIDE RECORDS SUMMARY | 2018-07-01 14:17 | XMS REPORT ---
Author Author JENIFER BRAY Organization [facility] Address [address] [place] [address] Care Team Providers Care Jerker Name Role Phone KATARINA JENIFER Unavailable PROBLEMS Type Condition ICD9-CM Code [id number] Code Onset Dates Condition Status SNOMED Code Problem Anxiety F41.9 Active 73348955 Problem Unsteady gait R26.81 Active 21950336 Problem Unspecified mental disorder due to known physiological condition F09 Active 311974321 Problem Mood disorder F39 Active 00723079 Problem Other chronic pain G89.29 Active 53122553 Problem Depressive disorder, not elsewhere classified F32.9 Active 44295436 Problem Other chronic pain G89.29 Active 94801250 Problem Major depressive disorder, recurrent, moderate F33.1 Active 73267407 Problem Dementia with behavioral disturbance, unspecified dementia type F03.91 Active 9127230053328 Problem Sleep apnea, unspecified type G47.30 Active 82965124 Problem Degenerative brain disorder G31.9 Active 51462609 ALLERGIES No Information ENCOUNTERS Encounter Location Date Diagnosis [facility] [id number] [place] [address] 18898- 2512 December, [facility] [id number] [place] [address] 60546- 2759 Nov, [facility] [id number] [place] [address] 69734- 7846 Nov, [facility] [id number] [place] [address] 88885- 0571 Nov, [facility] [id number] [place] [address] 99139- 2719 Nov, [facility] [id number] [place] [address] 33411- 9003 Nov, Mood disorder F39 [place] [id number] [id number] Nov, Depressive disorder, not elsewhere classified F32.9 and Cognitive change R41.89 [facility] [address] [address] 5692 Nov, [facility] [address] [address] Nov, [facility] [address] [place] [id number] Oct, Tear of skin of plantar aspect of right foot, initial encounter S91.311A [facility] [id number] [place] [address] 40461- 2600 Oct, [facility] [address] [id number] 7267 Oct, [facility] [id number] [place] [id number] Oct, [facility] [id number] [id number] Oct, [facility] [id number] [place] [id number] Sep, [facility] [id number] [id number] 14 Sep, 2017 [facility] [id number] [id number] 13 Sep, 2017 [facility] [id number] [id number] 09 Sep, 2017 [facility] [address] [address] 08 Sep, 2017 [facility] [address] [address] 06 Sep, 2017 Other chronic pain G89.29 and Pain in left knee M25.562 [facility] [address] [address] 8[address] Sep, [facility] [address] [place] [id number] Sep, Plantar fasciitis of left foot M72.2 and Pain in right knee M25.561 [facility] [address] [id number] [id number] Aug, [facility] [address] [address] 2879 Aug, [facility] [id number] [address] 8610 Aug, [facility] [id number] [place] [address] 25018- 2190 Aug, Chronic daily headache R51 [facility] [address] [address] 3[address] Aug, [facility] [address] [place] [id number] Aug, Edema, unspecified type R60.9 ; Weight gain R63.5 and Sleep apnea, unspecified type G47.[address] [facility] [address] [id number] Jul, Acute pain of left knee M25.562 and Plantar fasciitis of left foot M72.2 [facility] [id number] [address] Jul, [facility] [address] [id number] Jul, Plantar fasciitis of left foot M72.2 and Chronic daily headache R51 [facility] [address] [id number] [id number] Jul, [facility] [id number] [id number] Jun, [facility] [id number] [id number] 8772 Jun, [facility] [id number][place] [id number] Jun, [facility] [id number][place] [id number] Jun, [facility] [id number] [id number] May, [facility] [id number][place] [id number] May, [facility] [address], [place] [address] 9[address] May, Stress incontinence of urine N39.3 [facility] [id number] [place] [id number] May, [facility] [address] [place] [phone] May, Encounter for examination for admission to fpc Z02.2 ; Toxoplasmosis B58.9 ; Seizures R56.9 ; Major depressive disorder, recurrent, moderate F33.1 ; Degenerative brain disorder G31.9 and Unsteady gait R26.81 [facility] [address], [place] [address] May, [facility] [id number] [place] [address] 09367- 5043 May, Mood disorder F39 [facility] [address], [place] [address] 3841 May, [facility] [address] [address] 6582 Apr, [facility] [address] [address]- 0105 Mar, [facility] [address] [address]- 3815 Mar, [facility] [address] [address] 6649 Mar, [facility] [address] [place] [address] 6401 Mar, [facility] [place] [facility] [address] [id number] [place] [address] Mar, [facility] [place] [facility] [address] [id number] [place] [address]- 5808 Mar, Stress incontinence of urine N39.3 [facility] [id number] [place] [address], [place] [id number] Mar, [facility] [place] [facility] [address] [id number] [place] [address] 1897 Feb, [facility] [place] [facility] [id number] [place] [address], [place] [address]- 2818 Feb, [facility] [place] [facility] [address] [id number] [place] [address]- 9338 Feb, [facility] [place] [facility] [address] [id number] [place] [address]- 5053 Feb, [facility] [place] [facility] [address] [id number] [place] [address]- 1772 Feb, [facility] [place] [facility] [address] [id number] [place] [address]- 8472 Feb, [facility] [place] [facility] [address] [id number] [place] [address]- 6171 Feb, [facility] [place] [facility] [address] [id number] [place] [address]- 0196 Jan, [facility] [place] [facility] [address] [id number] [place] [address]- 3683 Jan, [facility] [place] [facility] [address] [id number] [place] [address]- 9244 Jan, [facility] [place] [facility] [address] [id number] [place] [address]- 7316 Jan, [facility] [place] [facility] [address] [id number] [place] [address]- 5586 Jan, [facility] [address], [place] [address]- 2456 Jan, [facility] [id number] [place] [address] 15376- 1565 Jan, [facility] [id number] [place] [address] 84130- 5346 Jan, General weakness R53.1 and Dementia with behavioral disturbance, unspecified dementia type F03.91 [facility] [id number] [place] [address] 33297- 8100 December, [facility] [id number] [place] [address] 05710- 4970 December, Other chronic pain G89.29 [facility] [id number] [place] [address] 23548- 5261 December, [facility] [id number] [place] [address] 83218- 9016 December, Unsteady gait R26.81 ; Generalized weakness R53.1 ; Unspecified mental disorder due to known physiological condition F09 and Generalized headaches R51 [facility] [id number] [place] [address] 82149- 6938 December, [facility] [id number] [place] [address] 00757- 8835 Nov, Anxiety F41.9 [facility] [id number] [place] [address] 31912- 2339 Nov, Mood disorder F39 [facility] [id number] [place] [address] 36254- 3876 Oct, [facility] [id number] [place] [address] 42851- 0535 Oct, Anxiety F41.9 [facility] [id number] [place] [address] 90789- 6862 Oct, Other chronic pain G89.29 [facility] [id number] [place] [address] 78796- 3694 Sep, Other chronic pain G89.29 ; Pain in left knee M25.562 ; Pain in right knee M25.561 and Anxiety F41.9 [facility] [id number] [place] [address] 56459- 5135 Sep, MDD (major depressive disorder), recurrent episode, mild F33.0 ; Degenerative brain disorder G31.9 and Other retirement (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 Z79.899 [facility] [id number] [place] [address] 44128- 1643 Sep, [facility] [id number] [place] [address] 53749- 3105 Sep, [facility] [id number] [place] [address] 84440- 6005 Sep, Mood disorder F39 ; Pain of left leg M79.605 and Pain in right leg M79.604 [facility] [id number] [place] [address] 80372- 3861 14 Sep, 2016 Seizures R56.9 [facility] [id number] [place] [address] 84838- 6927 08 Sep, 2016 [facility] [id number] [place] [address] 92522- 1165 Sep, [facility] [id number] [place] [address] 45425- 2549 Sep, [facility] [id number] [place] [address] 05666- 1576 Aug, Bronchitis J40 [facility] [id number] [place] [address] 78633- 6513 Aug, Bronchitis J40 and Encounter for drug screening Z02.83 [facility] [address] [address]- 1159 Aug, [facility] [address], [place] [address]- 1846 Aug, Seizures R56.9 [facility] [id number] [place] [address] 45958- 9715 Aug, Seizures R56.9 [facility] [id number] [place] [address] 61235- 8494 Aug, Major depressive disorder, recurrent, moderate F33.1 and Seizures R56.9 [facility] [id number] [place] [address] 99644- 9089 Aug, [facility] [id number] [place] [address] 81513- 1358 Aug, [facility] [id number] [place] [address] 75717- 5571 Aug, Major depressive disorder, recurrent, moderate F33.1 and Seizures R56.9 [facility] [id number] [place] [address] 52559- 4850 Jul, Major depressive disorder, recurrent, moderate F33.1 and Degenerative brain disorder G31.9 [facility] [id number] [place] [address] 55647- 6993 Jul, Seizures R56.9 [facility] [id number] [place] [address] 37285- 6919 Apr, [facility] [id number] [place] [address] 85114- 7775 Apr, Major depressive disorder, recurrent, moderate F33.1 ; Anxiety F41.9 and Degenerative brain disorder G31.9 [facility] [id number] [place] [address] 88627- 1689 Apr, Mood disorder F39 [facility] [id number] [place] [address] 25799- 4756 Apr, 2015 Arthritis M19.90 [facility] [address] [facility] [id number] [place] [address]23 Mar, Arthritis M19.90 ; Degenerative brain disorder G31.9 and Nonintractable generalized idiopathic epilepsy without status epilepticus G40.309 [facility] [address] [facility] [id number] [place] [address] 8028 Feb, IMMUNIZATIONS No Known Immunizations SOCIAL HISTORY Never Assessed REASON FOR VISIT Refill request PLAN OF CARE VITAL SIGNS MEDICATIONS Unknown Medications RESULTS No Results PROCEDURES No Known procedures INSTRUCTIONS MEDICATIONS ADMINISTERED No Known Medications MEDICAL (GENERAL) HISTORY Type Description Date Medical History Toxoplasmosis Medical History migraine Medical History dementia Medical History depression Medical History alzheimers disease Medical History epilepsy Medical History COPD Surgical History cholecystectomy Surgical History appendectomy Surgical History 27 brain surgeries including shunt, [place] Surgical History neck fusion 09/26, 09/28 Surgical History right hand surgery Hospitalization History surgeries Hospitalization History seizures 12/2015
--- OUTSIDE RECORDS SUMMARY | 2018-07-01 14:17 | XMS REPORT ---
Author Author JENIFER BRAY [facility] Address [address] [place] [address] Care Team Providers Care Technician [employer] Name Role Phone JENIFER BRAY Unavailable PROBLEMS Type Condition ICD9-CM Code [id number] Code Onset Dates Condition Status SNOMED Code Problem Dementia with behavioral disturbance, unspecified dementia type F03.91 Active [id number] Problem Unsteady gait R26.81 Active 35798661 Problem Other chronic pain G89.29 Active 63554334 Problem Mood disorder F39 Active 87959496 Problem Unspecified mental disorder due to known physiological condition F09 Active 344204711 Problem Anxiety F41.9 Active 66712747 ALLERGIES Unknown Allergies SOCIAL HISTORY No smoking Hx information available PLAN OF CARE VITAL SIGNS MEDICATIONS Medication Instructions Dosage Frequency Start Date End Date Duration Status Venlafaxine HCl ER 75 MG Orally Once a day 3 tablet with food 24h Aug, 30 days Active RESULTS No Results PROCEDURES No Known procedures IMMUNIZATIONS No Known Immunizations
--- OUTSIDE RECORDS SUMMARY | 2018-07-01 14:17 | XMS REPORT ---
Author Author ESTEPHANIA IVAN Organization [facility] Address [address] [place] [address] Care Team Providers Care Meat Stock Clerk Name Role Phone ESTEPHANIA IVAN Unavailable PROBLEMS Type Condition ICD9-CM Code VTE12-WJ Code Onset Dates Condition Status SNOMED Code Problem Anxiety F41.9 Active 46255720 Problem Unsteady gait R26.81 Active 89206866 Problem Unspecified mental disorder due to known physiological condition F09 Active 669625296 Problem Mood disorder F39 Active 01885996 Problem Other chronic pain G89.29 Active 86066595 Problem Depressive disorder, not elsewhere classified F32.9 Active 74770318 Problem Other chronic pain G89.29 Active 69374581 Problem Major depressive disorder, recurrent, moderate F33.1 Active 42197033 Problem Dementia with behavioral disturbance, unspecified dementia type F03.91 Active 0309723447824 Problem Sleep apnea, unspecified type G47.30 Active 74961015 Problem Degenerative brain disorder G31.9 Active 21151976 ALLERGIES No Information ENCOUNTERS Encounter Location Date Diagnosis [place] [id number] [place] [address]461- 0869 December, [facility] [id number] [place] [address] 84258- 9459 December, [facility] [id number] [place] [address] 17361- 0398 December, Depressive disorder, not elsewhere classified F32.9 and Cognitive change R41.89 [place] [address] [place] [address] [id number] [place] [address] 60141- 5417 Nov, Major depressive disorder, recurrent, moderate F33.1 [facility] [address] [place] [address] 05020- 0130 Nov, [place] [address], [place] [address] Nov, [facility] [address], [place] [address] 6[address] Nov, [facility] [address], [place] [address] 9667 Nov, [facility] [address] [place] [address] 34522- 9352 Nov, Mood disorder F39 [facility] [address], [place] [address] 65[address] Nov, Depressive disorder, not elsewhere classified F32.9 and Cognitive change R41.89 [facility] [address], [place] [address] 88[address] Nov, [facility] [address] [place] [address] 78944- 0514 Nov, [facility] [address] [place] [id number] Oct, Tear of skin of plantar aspect of right foot, initial encounter S91.311A [facility] [address], [place] [address] Oct, [facility] [id number] [address] Oct, [facility] [id number] [id number] Oct, [facility] [id number] [id number] Oct, [facility] [address] [id number] [id number] 28 Sep, 2017 [facility] [id number] [id number] 14 Sep, 2017 [facility] [id number] [id number] 13 Sep, 2017 [facility] [id number] [address] Sep, [facility] [address], [place] [address] 9166 Sep, [facility] [address], [place] [address] 1770 Sep, Other chronic pain G89.29 and Pain in left knee M25.562 [facility] [address] [place] [address] 02639- 7983 Sep, [facility] [address] [place] [id number] Sep, Plantar fasciitis of left foot M72.2 and Pain in right knee M25.561 [facility] [address] [place] [id number] [place] [id number] Aug, [facility] [id number] [place] [address] 11868- 4184 Aug, [facility] [address], [place] [address] 8923 Aug, [facility] [address] [place] [address] 81787- 9270 Aug, Chronic daily headache R51 [facility] [id number], [place] [address] 3[address] Aug, [facility] [address] [place] [id number] Aug, Edema, unspecified type R60.9 ; Weight gain R63.5 and Sleep apnea, unspecified type G47.30 [facility] [address] [place] [address] Jul, Acute pain of left knee M25.562 and Plantar fasciitis of left foot M72.2 [facility] [address], [place] [address] Jul, [facility] [id number] Jul, Plantar fasciitis of left foot M72.2 and Chronic daily headache R51 [facility] [id number] [id number] Jul, [facility] [id number] [id number] Jun, [facility] [address] [facility] [id number], [place] [address] Jun, [facility] [address] [id number] [id number] Jun, [facility] [address] [place] [id number] [place] [id number] Jun, [facility] [address] [place] [id number] [id number] May, [facility] [address] [place] [address] [id number] [place] [id number] May, [facility] [address], [place] [address] May, Stress incontinence of urine N39.3 [facility] [id number] [id number] May, [facility] [address] [id number] May, Encounter for examination for admission to [facility] Z02.2 ; Toxoplasmosis B58.9 ; Seizures R56.9 ; Major depressive disorder, recurrent, moderate F33.1 ; Degenerative brain disorder G31.9 and Unsteady gait R26.81 [facility] [address] [place] [id number] [address] May, [facility] [address] [address] [address] May, Mood disorder F39 [facility] [id number] May, [facility] [place] [facility] [address] [id number] [place] [address]- [address] Apr, [facility] [place] [facility] [address] [id number] [place] [address]- 5686 Mar, [facility] [place] [facility] [address] [id number] [place] [address]- 6314 Mar, [facility] [place] [facility] [address] [id number] [place] [address]- 2290 Mar, [facility] [place] [facility] [address] [id number] [place] [address]- 2245 Mar, [facility] [place] [facility] [id number] [place] [address], [place] [address]- 9040 Mar, [facility] [place] [facility] [address] [facility] [id number] [place] [address]- 7079 Mar, Stress incontinence of urine N39.3 [facility] [id number] [place] [address], [place] [id number] Mar, [facility] [place] [facility] [address] [id number] [place] [address]- 6770 Feb, [facility] [place] [facility] [address] [id number] [place] [address]- 5035 Feb, [facility] [place] [facility] [address] [id number] [place] [address]- 6439 Feb, [facility] [place] [facility] [address] [id number], [place] [address]- 9815 Feb, [facility] [place] [facility] [address] [id number] [place] [address]- 5014 Feb, [facility] [place] [facility] [address] [id number] [place] [address]- 6350 Feb, [facility] [place] [facility] [address] [id number] [place] [address]- 7952 Feb, [facility] [place] [facility] [address] [id number], [place] [address]- 1290 Jan, [facility] [address], [place] [address]- 2959 Jan, [facility] [address], [place] [address]- 0321 Jan, [facility] [address], [place] [address]- 0666 Jan, [facility] [address] [place] [address] 71930- 8346 Jan, [facility] [address], [place] [address]- 0489 Jan, [facility] [address], [place] [address]- 6130 Jan, [facility] [address], [place] [address]- 9936 Jan, General weakness R53.1 and Dementia with behavioral disturbance, unspecified dementia type F03.91 [facility] [address], [place] [address]- 9265 December, [facility] [address], [place] [address]- 1380 December, Other chronic pain G89.29 [facility] [address], [place] [address]- 0354 December, [facility] [address], [place] [address]- 6374 December, Unsteady gait R26.81 ; Generalized weakness R53.1 ; Unspecified mental disorder due to known physiological condition F09 and Generalized headaches R51 [facility] [address], [place] [address]- 4735 December, [facility] [address], [place] [address]- 1354 Nov, Anxiety F41.9 [facility] [id number] [place] [address] 33181- 7294 Nov, Mood disorder F39 [facility] [id number] [place] [address] 87609- 3194 Oct, [facility] [id number] [place] [address] 03354- 9183 Oct, Anxiety F41.9 [facility] [address] [id number] [place] [address] 11076- 7235 Oct, Other chronic pain G89.29 [facility] [address] [place] [id number] [place] [address] 63628- 4943 Sep, Other chronic pain G89.29 ; Pain in left knee M25.562 ; Pain in right knee M25.561 and Anxiety F41.9 [facility] [address] [place] [id number] [place] [address] 51205- 6009 Sep, MDD (major depressive disorder), recurrent episode, mild F33.0 ; Degenerative brain disorder G31.9 and Other penitentiary (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 Z79.899 [facility] [address] [place] [id number] [place] [address] 65123- 7134 Sep, [facility] [id number] [place] [address] 75205- 5018 Sep, [facility] [address] [place] [id number] [place] [address] 83764- 8123 Sep, Mood disorder F39 ; Pain of left leg M79.605 and Pain in right leg M79.604 [facility] [address] [place] [address] 42283- 0479 Sep, Seizures R56.9 [facility] [address] [place] [id number] [place] [address] 79157- 8250 Sep, [facility] [id number] [place] [address] 24873- 2577 Sep, [facility] [address], [place] [address]- 4980 Sep, [facility] [address] [place] [id number] [place] [address] 59759- 5556 Aug, Bronchitis J40 [facility] [address] [place] [id number] [place] [address] 24896 2546 Aug, Bronchitis J40 and Encounter for drug screening Z02.83 [facility] [address] [id number] [place] [address] 26918- 2366 Aug, [facility] [address] [place] [id number] [place] [address] 38134- 2966 Aug, Seizures R56.9 [facility] [address] [place] [address] [id number] [place] [address] 56795- 2396 Aug, Seizures R56.9 [facility] [address] [id number] [place] [address] 99512 2543 Aug, Major depressive disorder, recurrent, moderate F33.1 and Seizures R56.9 [facility] [id number] [place] [address] 29311- 0066 Aug, [facility] [id number] [place] [address] 18656- 0606 Aug, [facility] [id number] [place] [address] 10379- 5085 Aug, Major depressive disorder, recurrent, moderate F33.1 and Seizures R56.9 [facility] [id number] [place] [address] 56901 2548 Jul, Major depressive disorder, recurrent, moderate F33.1 and Degenerative brain disorder G31.9 [facility] [address] [place] [address] 66491- 9296 Jul, Seizures R56.9 [facility] [id number] [place] [address] 96619 2546 Apr, [place] [address] [place] [id number], [place] [address]- 0186 Apr, Major depressive disorder, recurrent, moderate F33.1 ; Anxiety F41.9 and Degenerative brain disorder G31.9 [place] [address], [place] [address]- 1815 Apr, Mood disorder F39 [place] [address], [place] [address]- 6713 Apr, Arthritis M19.90 [place] [address] [place] [address] 20426- 9963 Mar, Arthritis M19.90 ; Degenerative brain disorder G31.9 and Nonintractable generalized idiopathic epilepsy without status epilepticus G40.309 [place] [address], [place] [address]- 4104 Feb, IMMUNIZATIONS No Known Immunizations SOCIAL HISTORY Never Assessed REASON FOR VISIT Request for anxiety meds PLAN OF CARE VITAL SIGNS MEDICATIONS Medication Instructions Dosage Frequency Start Date End Date Duration Status Wellbutrin SR 150 MG Orally Twice a day 1 tablet 12h May, 30 day(s) Active RESULTS No Results PROCEDURES No Known procedures INSTRUCTIONS MEDICATIONS ADMINISTERED No Known Medications MEDICAL (GENERAL) HISTORY Type Description Date Medical History Toxoplasmosis Medical History migraine Medical History dementia Medical History depression Medical History alzheimers disease Medical History epilepsy Medical History COPD Surgical History cholecystectomy Surgical History appendectomy Surgical History 27 brain surgeries including shunt, [place] Surgical History neck fusion 09/26, 09/28 Surgical History right hand surgery Hospitalization History surgeries Hospitalization History seizures 12/2015
--- OUTSIDE RECORDS SUMMARY | 2018-07-01 14:17 | XMS REPORT ---
Author Author JENIFER BRAY Organization [facility] Address [address] [place] [address] Care Team Providers Care Spray Dry Operator Name Role Phone JENIFER BRAY Unavailable PROBLEMS Type Condition ICD9-CM Code FDG08-XI Code Onset Dates Condition Status SNOMED Code Problem Dementia with behavioral disturbance, unspecified dementia type F03.91 Active 6912838885166 Problem Unsteady gait R26.81 Active 84041527 Problem Other chronic pain G89.29 Active 34705191 Problem Mood disorder F39 Active 29304111 Problem Unspecified mental disorder due to known physiological condition F09 Active 653461023 Problem Anxiety F41.9 Active 06067915 ALLERGIES No Information SOCIAL HISTORY Never Assessed PLAN OF CARE VITAL SIGNS MEDICATIONS Medication Instructions Dosage Frequency Start Date End Date Duration Status Clonazepam 0.5 MG Orally Twice a day 1 tablet 12h 28 Sep, 2016 Active RESULTS No Results PROCEDURES No Known procedures IMMUNIZATIONS No Known Immunizations MEDICAL (GENERAL) HISTORY Type Description Date Medical History Toxoplasmosis Medical History migraine Medical History dementia Medical History depression Medical History alzheimers disease Medical History epilepsy Surgical History cholecystectomy Surgical History appendectomy Surgical History 27 brain surgeries including shunt, [place] Surgical History neck fusion 09/26, 09/28 Surgical History right hand surgery Hospitalization History surgeries Hospitalization History seizures 12/2015
--- OUTSIDE RECORDS SUMMARY | 2018-07-01 14:17 | XMS REPORT ---
Author Author JENIFER BRAY Organization [facility] Address [address] [place] [address] Care Team Providers Care Motorcycle Engine Assembler Name Role Phone JENIFER BRAY Unavailable PROBLEMS Type Condition ICD9-CM Code TJC85-QD Code Onset Dates Condition Status SNOMED Code Problem Dementia with behavioral disturbance, unspecified dementia type F03.91 Active 8422005840468 Problem Unsteady gait R26.81 Active 46941862 Problem Other chronic pain G89.29 Active 45304492 Problem Mood disorder F39 Active 24575404 Problem Unspecified mental disorder due to known physiological condition F09 Active 403302836 Problem Anxiety F41.9 Active 17114590 ALLERGIES Unknown Allergies SOCIAL HISTORY No smoking Hx information available PLAN OF CARE VITAL SIGNS MEDICATIONS Medication Instructions Dosage Frequency Start Date End Date Duration Status Venlafaxine HCl ER 225 MG Orally Once a day 1 tablet with food 24h Sep, 30 day(s) Active Symbicort 160-4.5 MCG/ACT Inhalation Twice a day 2 puffs 12h Sep, Active RESULTS No Results PROCEDURES No Known procedures IMMUNIZATIONS No Known Immunizations
--- OUTSIDE RECORDS SUMMARY | 2018-07-01 14:17 | XMS REPORT ---
Author Author JENIFER BRAY Organization [facility] Address [address] [place] [address] Care Team Providers Care Floor Sander Name Role Phone KATARINA JENIFER Unavailable PROBLEMS Type Condition ICD9-CM Code [id number] Code Onset Dates Condition Status SNOMED Code Problem Anxiety F41.9 Active 84728837 Problem Unsteady gait R26.81 Active 47293753 Problem Unspecified mental disorder due to known physiological condition F09 Active 142708848 Problem Mood disorder F39 Active 53936258 Problem Other chronic pain G89.29 Active 49286282 Problem Depressive disorder, not elsewhere classified F32.9 Active 60335931 Problem Other chronic pain G89.29 Active 25354897 Problem Major depressive disorder, recurrent, moderate F33.1 Active 62747646 Problem Dementia with behavioral disturbance, unspecified dementia type F03.91 Active 5368284238612 Problem Sleep apnea, unspecified type G47.30 Active 09308418 Problem Degenerative brain disorder G31.9 Active 05785402 ALLERGIES No Information ENCOUNTERS Encounter Location Date Diagnosis [facility] [id number] [place] [address] 37013- 9131 December, [facility] [id number] [place] [address] 21104- 5802 December, [facility] [id number] [place] [address] 25915- 0948 Nov, Major depressive disorder, recurrent, moderate F33.1 [facility] [id number] [place] [address] 87309- 2720 Nov, [facility] [id number] [place] [address] 38539- 7551 Nov, [facility] [address] [address]- 6[address] Nov, [facility] [id number] [address] Nov, [facility] [address], [place] [address] Nov, Mood disorder F39 [facility] [address] [id number], [place] [address] Nov, Depressive disorder, not elsewhere classified F32.9 and Cognitive change R41.89 [facility] [address], [place] [address] 47[address] Nov, [facility] [address], [place] [address] Nov, [facility] [address] [place] [id number] Oct, Tear of skin of plantar aspect of right foot, initial encounter S91.311A [facility] [address], [place] [address] Oct, [facility] [id number] [id number] Oct, [facility] [id number][place] [id number] Oct, [facility] [id number] [id number] Oct, [facility] [id number], [place] [id number] 28 Sep, 2017 [facility] [place] [facility] [id number] [id number] 14 Sep, 2017 [facility] [id number] [id number] 13 Sep, 2017 [facility] [id number][place] [id number] 09 Sep, 2017 [facility] [id number], [place] [address] Sep, [facility] [id number], [place] [address] Sep, Other chronic pain G89.29 and Pain in left knee M25.562 [facility] [address], [place] [address] Sep, [facility] [address] [id number] Sep, Plantar fasciitis of left foot M72.2 and Pain in right knee M25.561 [facility] [id number] [place] [id number] Aug, [facility] [id number] [place] [address] 13924- 0119 Aug, [facility] [address] [place] [address] 43035- 9420 Aug, [facility] [address] [place] [address] 06982- 1185 Aug, Chronic daily headache R51 [facility] [address] [place] [address] 31975- 5890 Aug, [facility] [address] [id number] Aug, Edema, unspecified type R60.9 ; Weight gain R63.5 and Sleep apnea, unspecified type G47.[address] [facility] [address] [id number] Jul, Acute pain of left knee M25.562 and Plantar fasciitis of left foot M72.2 [facility] [address] [place] [address] 57358- 3606 Jul, [facility] [address] [id number] Jul, Plantar fasciitis of left foot M72.2 and Chronic daily headache R51 [facility] [id number] [place] [id number] Jul, [facility] [id number][place] [id number] Jun, [facility] [address], [place] [address]- 2546 Jun, [facility] [address] [id number] [id number] Jun, [facility] [id number] [place] [id number] Jun, [facility] [id number] [place] [id number] May, [facility] [id number] [place] [id number] May, [facility] [address], [place] [address]- 2546 May, Stress incontinence of urine N39.3 [facility] [address] [id number] [id number] May, [facility] [address] [place] [id number] May, Encounter for examination for admission to correction Z02.2 ; Toxoplasmosis B58.9 ; Seizures R56.9 ; Major depressive disorder, recurrent, moderate F33.1 ; Degenerative brain disorder G31.9 and Unsteady gait R26.81 [facility] [address], [place] [address] 1716 May, [facility] [address]65[address], [place] [address]- 7166 May, Mood disorder F39 [facility] [address]65[address], [place] [address]- 4086 May, [facility] [address], [place] [address]- 2546 Apr, [facility] [address] [id number], [place] [address]- 2017 Mar, [facility] [place] [facility] [address] [id number] [place] [address] Mar, [facility] [place] [facility] [address] [id number] [place] [address]- 3130 Mar, [facility] [place] [facility] [address] [id number] [place] [address]- 3508 Mar, [facility] [place] [facility] [address] [id number] [place] [address]- 7[address] Mar, [facility] [place] [facility] [address] [id number] [place] [address]- 1654 Mar, Stress incontinence of urine N39.3 [facility] [id number] [place] [address], [place] [id number] Mar, [facility] [place] [facility] [address] [id number] [place] [address]- 0124 Feb, [facility] [place] [facility] [address] [id number] [place] [address]- 8657 Feb, [facility] [place] [facility] [address] [id number] [place] [address]- 6272 Feb, [facility] [place] [facility] [address] [id number] [place] [address]- 0808 Feb, [facility] [place] [facility] [address] [id number] [place] [address]- 5291 Feb, [facility] [place] [facility] [address] [id number], [place] [address] 5698 Feb, [facility] [place] [facility] [address] [id number] [place] [address]- 5120 Feb, [facility] [place] [facility] [address] [id number] [place] [id number] Jan, [facility] [place] [facility] [address] [id number] [place] [address]- 4532 Jan, [facility] [place] [facility] [address], [place] [address]- 0283 Jan, [facility] [address] [place] [address] 49245- 8433 Jan, [facility] [address] [place] [address] 71683- 2644 Jan, [facility] [address] [place] [address] 77630- 2302 Jan, [facility] [id number] [place] [address] 68822- 2944 Jan, [facility] [id number] [place] [address] 99329- 9609 Jan, General weakness R53.1 and Dementia with behavioral disturbance, unspecified dementia type F03.91 [facility] [id number] [place] [address] 70190- 9842 December, [facility] [id number] [place] [address] 10625- 1112 December, Other chronic pain G89.29 [facility] [id number] [place] [address] 92200- 4185 December, [facility] [address] [place] [address] 53208- 5518 December, Unsteady gait R26.81 ; Generalized weakness R53.1 ; Unspecified mental disorder due to known physiological condition F09 and Generalized headaches R51 [facility] [address], [place] [address]- 5979 December, [facility] [id number] [place] [address] 80237- 7381 Nov, Anxiety F41.9 [facility] [address] [place] [address] 82795- 7548 Nov, Mood disorder F39 [facility] [id number] [place] [address] 95810- 3252 Oct, [facility] [address], [place] [address]- 4754 Oct, Anxiety F41.9 [facility] [id number] [place] [address] 62385- 0892 Oct, Other chronic pain G89.29 [facility] [id number] [place] [address] 07669- 6783 Sep, Other chronic pain G89.29 ; Pain in left knee M25.562 ; Pain in right knee M25.561 and Anxiety F41.9 [facility] [id number] [place] [address] 62689- 2940 Sep, MDD (major depressive disorder), recurrent episode, mild F33.0 ; Degenerative brain disorder G31.9 and Other mcc (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 Z79.899 [facility] [id number] [place] [address] 91986- 2093 Sep, [facility] [id number] [place] [address] 95872- 5677 Sep, [facility] [id number] [place] [address] 57409- 8838 Sep, Mood disorder F39 ; Pain of left leg M79.605 and Pain in right leg M79.604 [facility] [id number] [place] [address] 90011- 0355 Sep, Seizures R56.9 [facility] [id number] [place] [address] 07505- 7675 Sep, [facility] [id number] [place] [address] 21166- 6320 Sep, [facility] [id number] [place] [address] 04790- 8593 Sep, [facility] [id number] [place] [address] 73937- 8759 Aug, Bronchitis J40 [facility] [id number] [place] [address] 97426- 1556 Aug, Bronchitis J40 and Encounter for drug screening Z02.83 [facility] [id number] [place] [address] 58260- 7856 Aug, [facility] [id number] [place] [address] 83783- 8489 Aug, Seizures R56.9 [facility] [id number] [place] [address] 22141- 8036 Aug, Seizures R56.9 [facility] [id number] [place] [address] 45629- 5116 Aug, Major depressive disorder, recurrent, moderate F33.1 and Seizures R56.9 [facility] [id number] [place] [address] 86837- 1356 Aug, [facility] [id number] [place] [address] 17875- 3170 Aug, [facility] [id number] [place] [address] 82504- 6639 Aug, Major depressive disorder, recurrent, moderate F33.1 and Seizures R56.9 [facility] [address] [place] [address] 02381- 7786 Jul, Major depressive disorder, recurrent, moderate F33.1 and Degenerative brain disorder G31.9 [facility] [address] [place] [address] 56218- 5906 Jul, Seizures R56.9 [facility] [id number] [place] [address] 33726- 8176 Apr, [facility] [address] [place] [address] 49282- 9686 Apr, Major depressive disorder, recurrent, moderate F33.1 ; Anxiety F41.9 and Degenerative brain disorder G31.9 [address] [facility] [id number] [address]- 3877 Apr, Mood disorder F39 [address] [facility] [id number] [address]- 8929 Apr, Arthritis M19.90 [address] [facility] [id number], [place] [address]- 4515 Mar, Arthritis M19.90 ; Degenerative brain disorder G31.9 and Nonintractable generalized idiopathic epilepsy without status epilepticus G40.309 [address] [facility] [id number] [address]- 2894 Feb, IMMUNIZATIONS No Known Immunizations SOCIAL HISTORY Never Assessed REASON FOR VISIT Controlled Med Refill PLAN OF CARE VITAL SIGNS MEDICATIONS Medication Instructions Dosage Frequency Start Date End Date Duration Status Yolyn 10-325 MG Orally every 6 hrs 1 tablet as needed 6h May, 28 days Active RESULTS No Results PROCEDURES No Known procedures INSTRUCTIONS MEDICATIONS ADMINISTERED No Known Medications MEDICAL (GENERAL) HISTORY Type Description Date Medical History Toxoplasmosis Medical History migraine Medical History dementia Medical History depression Medical History alzheimers disease Medical History epilepsy Medical History COPD Surgical History cholecystectomy Surgical History appendectomy Surgical History 27 brain surgeries including shunt, [place] Surgical History neck fusion 09/26, 09/28 Surgical History right hand surgery Hospitalization History surgeries Hospitalization History seizures 12/2015
--- NOTE | 2018-07-01 14:18 | ED Fall/Injury ---
General Chief Complaint: Trauma-Non Activation Stated Complaint: FALL Source: patient, EMS Exam Limitations: no limitations History of Present Illness Date Seen by Provider: Jul 01, 2018 Time Seen by Provider: 14:00 Initial Comments Patient presents to ER by EMS from [facility] [place] in [facility] with chief complaint of fall after getting up off the toilet he landed against the wall on his right side and then slid down to the ground. He says did strike his head but did not lose consciousness. 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 He has a shunt in place. He says he was struck in the back of her head and has some pain there little bit of a knot. He is also having pain in his left frontal forehead where the shunt was that there is no trauma there. As far as he knows the shunt has been working fine. He's had no fevers chills dysuria cough shortness of breath chest pain abdominal pain nausea vomiting diarrhea. Allergies and Home Medications Allergies Coded Allergies: morphine (Unverified Adverse Reaction, Unknown, 07/01/18) Home Medications Buspirone HCl 30 Mg Tablet, 30 MG PO BID, (Reported) Chlorpromazine HCl 10 Mg Tablet, 10 MG PO TID, (Reported) Divalproex Sodium 500 Mg Tablet.dr, 1,500 MG PO BID Prescribed by: JENIFER EVANS on 05/04/16 0155 Escitalopram Oxalate 20 Mg Tablet, 20 MG PO DAILY, (Reported) Levetiracetam 500 Mg Tablet, 1,500 MG PO BID, (Reported) Memantine HCl 10 Mg Tablet, 20 MG PO BID, (Reported) Oxycodone HCl/Acetaminophen 1 Each Tablet, 1 EACH PO Q6H PRN for PAIN-MODERATE, (Reported) Topiramate 100 Mg Tablet, 100 MG PO TID, (Reported) Venlafaxine HCl 225 Mg Tab.er.24, 225 MG PO DAILY, (Reported) Zolpidem Tartrate 10 Mg Tablet, 10 MG PO HS, (Reported) Patient Home Medication List Home Medication List Reviewed: Yes Review of Systems Review of Systems Constitutional: No chills, No fever Eyes: Denies Blindness, Denies Blurred Vision Ears, Nose, Mouth, Throat: denies ear pain, denies ear discharge Respiratory: No cough, No short of breath Cardiovascular: No chest pain, No edema, No palpitations Gastrointestinal: No abdominal pain, No constipation, No diarrhea, No nausea Genitourinary: No discharge, No dysuria Musculoskeletal: No back pain; joint pain (left hip) Skin: other (bruise right forearm) Past Pjvndyh-Accrjf-Vrwnnm Hx Patient Social History Alcohol Use: Denies Use Recreational Drug Use: Yes Drug of Choice: WEED Smoking Status: Current Everyday Smoker Type Used: Cigarettes Recent Foreign Travel: No Contact w/Someone Who Travel: No Recent Hopitalizations: No Immunizations Up To Date Tetanus Booster (TDap): Unknown Seasonal Allergies Seasonal Allergies: No Past Medical History Surgeries: Yes Brain Shunt Respiratory: Yes Asthma, COPD Currently Using CPAP: No Currently Using BIPAP: No Cardiac: Yes Hypertension Neurological: Yes Dementia, Seizure Disorder Reproductive Disorders: No Gastrointestinal: No Musculoskeletal: Yes Arthritis Endocrine: No Cancer: No Psychosocial: Yes Anxiety, Depression Integumentary: No Blood Disorders: No Adverse Reaction/Blood Tranf: No Family Medical History No Pertinent Family Hx Physical Exam Vital Signs Vital Signs - First Documented Capillary Refill : Height, Weight, BMI Height: 5'7.00" Weight: 194lbs. oz. 87.221286ic; BMI Method:Stated General Appearance: WD/WN, no apparent distress HEENT: PERRL/EOMI, normal ENT inspection, TMs normal, pharynx normal Neck: non-tender, supple, normal inspection, other (cervical collar in place) Cardiovascular: normal peripheral pulses, regular rate, rhythm, no edema Respiratory: chest non-tender, lungs clear, normal breath sounds, no respiratory distress, no accessory muscle use Peripheral Pulses: 2+ Radial Pulses (R), 2+ Radial Pulses (L) Gastrointestinal: normal bowel sounds, non tender, soft Back: normal inspection, no vertebral tenderness Extremities: normal capillary refill, other (tenderness to palpation over her left greater trochanter of the femur) Neurologic/Psychiatric: director safety II-XII nml as tested, no motor/sensory deficits, alert, normal mood/affect, oriented x 3 Skin: normal color, warm/dry Yamilex Coma Score Best Eye Response: (4) Open Spontaneously Best Verbal Response: (5) Oriented Best Motor Response: (6) Obeys Commands Yamilex Total: 15 Procedures/Interventions Suture Size: 4-0 Progress/Results/Core Measures Results/Orders Lab Results Laboratory Tests Test 07/01/18 14:30 07/01/18 16:51 Range/Units White Blood Count 7.9 4.3-11.0 10^3/uL Red Blood Count 4.71 4.35-5.85 10^6/uL Hemoglobin 14.6 13.3-17.7 G/DL Hematocrit 42 40-54 % Mean Corpuscular Volume 90 80-99 FL Mean Corpuscular Hemoglobin 31 25-34 PG Mean Corpuscular Hemoglobin Concent 35 32-36 G/DL Red Cell Distribution Width 14.6 H 10.0-14.5 % Platelet Count 240 130-400 10^3/uL Mean Platelet Volume 9.6 7.4-10.4 FL Neutrophils (%) (Auto) 53 42-75 % Lymphocytes (%) (Auto) 29 12-44 % Monocytes (%) (Auto) 16 H 0-12 % Eosinophils (%) (Auto) 2 0-10 % Basophils (%) (Auto) 0 0-10 % Neutrophils # (Auto) 4.1 1.8-7.8 X 10^3 Lymphocytes # (Auto) 2.3 1.0-4.0 X 10^3 Monocytes # (Auto) 1.3 H 0.0-1.0 X 10^3 Eosinophils # (Auto) 0.2 0.0-0.3 10^3/uL Basophils # (Auto) 0.0 0.0-0.1 10^3/uL Sodium Level 138 135-145 MMOL/L Potassium Level 4.5 3.6-5.0 MMOL/L Chloride Level 101 98-107 MMOL/L Carbon Dioxide Level 24 21-32 MMOL/L Anion Gap 13 5-14 MMOL/L Blood Urea Nitrogen 18 7-18 MG/DL Creatinine 0.99 0.60-1.30 MG/DL Estimat Glomerular Filtration Rate > 60 BUN/Creatinine Ratio 18 Glucose Level 100 70-105 MG/DL Calcium Level 10.0 8.5-10.1 MG/DL Corrected Calcium 9.8 8.5-10.1 MG/DL Total Bilirubin 0.4 0.1-1.0 MG/DL Aspartate Amino Transf (AST/SGOT) 40 H 5-34 U/L Alanine Aminotransferase (ALT/SGPT) 26 0-55 U/L Alkaline Phosphatase 51 40-136 U/L Troponin I < 0.30 <0.30 NG/ML Total Protein 7.5 6.4-8.2 GM/DL Albumin 4.3 3.2-4.5 GM/DL Urine Color YELLOW Urine Clarity CLEAR Urine pH 7 5-9 Urine Specific [place] 1.010 L 1.016-1.022 Urine Protein NEGATIVE NEGATIVE Urine Glucose (UA) NEGATIVE NEGATIVE Urine Ketones NEGATIVE NEGATIVE Urine Nitrite NEGATIVE NEGATIVE Urine Bilirubin NEGATIVE NEGATIVE Urine Urobilinogen NORMAL NORMAL MG/DL Urine Leukocyte Esterase NEGATIVE NEGATIVE Urine RBC (Auto) NEGATIVE NEGATIVE Urine RBC NONE /HPF Urine WBC NONE /HPF Urine Squamous Epithelial Cells NONE /HPF Urine Crystals NONE /LPF Urine Bacteria NEGATIVE /HPF Urine Casts NONE /LPF Urine Mucus NEGATIVE /LPF Urine Culture Indicated NO My Orders Orders - CODY SCHRADER Ct Head/Cervical Spine Wo (07/01/18 14:00) Saline Lock/Iv-Start (07/01/18 14:00) Cbc With Automated Diff (07/01/18 14:00) Comprehensive Metabolic Panel (07/01/18 14:00) Troponin I (07/01/18 14:00) Ua Culture If Indicated (07/01/18 14:00) Chest 1 View, Ap/Pa Only (07/01/18 14:00) Pelvis With Left Hip 2-3 Views (07/01/18 14:00) Saline Lock/Iv-Start (07/01/18 14:00) Ekg Tracing (07/01/18 14:00) Continuous Ekg Monitoring (07/01/18 14:00) Orthostatic Vital Signs (Adult (07/01/18 14:00) Hydrocodone/Apap 5/325 Tablet (Lortab 5 (07/01/18 17:15) Medications Given in ED Current Medications Medications Dose Ordered Sig/Davin Route Start Time Stop Time Status Last Admin Dose Admin Fentanyl Citrate 50 mcg ONCE ONCE IVP 07/01/18 15:45 07/01/18 15:46 DC 07/01/18 15:55 50 MCG Vital Signs/I&O 07/01/18 07/01/18 07/01/18 13:59 13:59 17:15 Temp 98.3 98.3 Pulse 96 96 96 102 90 Resp 20 20 B/P (MAP) 117/91 (100) 117/91 (100) 121/83 (96) 126/81 (96) 106/83 (91) Pulse Ox 96 96 O2 Delivery Room Air Progress Progress Note #1: Time: 14:[address] spine precautions. CT scan of head and neck without contrast look for shunt placement as well as traumatic intracranial changes. We'll get some labs and urine to see if we can discover why he is had some any falls. Chest x-ray, EKG and after we can clear the c-collar we'll do some orthostatic vitals. Suspect strongly he's had a vasovagal syncope secondary to history of near-syncope after standing up from the toilet. He seems to describe the rest of his falls happen right after changing position. Blood sugar was 114 in the ER when he arrived. No history of diabetes. Progress Note #2: Time: 17:00 Progress Note C-collar cleared clinically and radiographically. Blood work is unremarkable. UA is pending. We have offered to do a CT scan of the chest here in the ER or have him set up and do it Tuesday morning for his primary care doctor's office and he would prefer to go home and the skilled nursing and have a primary care doctor followed up outpatient. He suspects it is related to his 40 years of smoking that he might have a lung cancer. Is also possible this could be the reason why he is having the falls. Progress Note #3: Time: 17:23 Progress Note Urine is clean and orthostatic vitals are not positive. We are going to allow him to go back to the skilled nursing and pursue outpatient workup. Initial ECG Impression Date: Jul 01, 2018 Initial ECG Impression Time: 13:57 Initial ECG Rate: 98 Initial ECG Rhythm: Normal Sinus Initial ECG Intervals: Normal Initial ECG Impression: Normal Comment No ST elevation or depression. No dysrhythmia Diagnostic Imaging Diagonstic Imaging: Xray Plain Films/CT/US/NM/MRI: chest (1v) Comments VIA [facility]. [place], [place] NAME: JULIANA BENJAMIN [facility]ARKEY [facility] REC#: [id number] PT STATUS: REG ER : 1965 PHYSICIAN: CODY SCHRADER MD ADMIT DATE: 07/01/18/ER Draft Date of Exam:07/01/18 CHEST 1 VIEW, AP/PA ONLY INDICATION: Injury, chest pain. EXAMINATION: Supine AP chest at 3:51 p.m. COMPARISON: There are no prior studies available for comparison. FINDINGS: There is an unusual 2.1 x 9.3 cm crescentic density overlying the midthoracic spine. This may be extraneous to the patient. A followup PA and lateral chest would be recommended for further study. The heart size is within normal limits. The lungs are clear. There is no evidence for failure, pneumonia or pleural effusion. The mediastinum is not widened. The osseous structures are intact. There is an orthopedic plate and screw fixation device overlying the lower cervical spine at C5-6. There is also a ventricular peritoneal shunt in place on the right. Surgical clips are also seen overlying the right upper quadrant. IMPRESSION: 1. The crescentic density overlying the mid thorax is of uncertain etiology. Recommendations as above. 2. There is no acute cardiopulmonary abnormality noted. Dictated on workstation # [id number] Dict: 07/01/18 1552 Trans: 07/01/18 1612 [facility] [id number] Interpreted by: SHAWNA GIBBONS MD Electronically signed by: Reviewed: Reviewed by Nh Diagonstic Imaging: CT (without contrast) Plain Films/CT/US/NM/MRI: c-spine, head Comments VIA [place], [place] NAME: JULIANA BENJAMIN SHARKEY [facility] REC#: [id number] PT STATUS: REG ER : 1965 PHYSICIAN: CODY SCHRADER MD ADMIT DATE: 07/01/18/ER Draft Date of Exam:07/01/18 CT HEAD/CERVICAL SPINE WO PROCEDURE: CT head and CT cervical spine without contrast. TECHNIQUE: Multiple contiguous axial images were obtained through the brain and cervical spine without the use of intravenous contrast. Sagittal and coronal reformations through the cervical spine were then performed. INDICATION: Fell, head and neck pain. CT HEAD: The previous CT head exam performed on 06/25/2018 noted a ventricular peritoneal shunt in place on the right with the tip of the shunt in the midportion of the left lateral ventricle. On this exam, the shunt tip is again evident and does not seem to have changed significantly. The ventricles, themselves, are stable in size. There is no mass, shift of the midline or hemorrhage to suggest an acute intracranial abnormality. The normal tentorial blush is noted. The diffuse areas of encephalomalacia involving the periventricular white matter and right temporal lobe, seen on the prior study are again identified and no different. Cortical atrophy is also again seen. The bone windows show no sign of a skull fracture or for a destructive lesion. The orbits are symmetrical and within normal limits. The sinuses are generally clear. IMPRESSION: 1. There is no evidence for an acute intracranial abnormality. 2. The ventricular peritoneal shunt on the right, seen previously, appears stable in position. CT CERVICAL SPINE: As noted on the recent CT cervical spine exam of 06/25/2018, there has been a prior anterior fusion of C5 and C6. The orthopedic hardware appears to be in good position. The overall appearance of the cervical spine has not changed significantly since the prior exam. There is degenerative disc and bony disease throughout the cervical spine but there is no fracture or acute bony abnormality noted. There is no sign of retropharyngeal edema. The thyroid gland is unremarkable. The sections through the lung apices do show a poorly defined 9.4 mm parenchymal density in the left upper lobe. This portion of the lung was not included on the prior exam. This finding is worrisome for neoplasm. CT of the chest would be recommended for further evaluation. IMPRESSION: 1. There is no evidence for acute bony abnormality. The fusion of C5 and C6 appear stable. 2. The parenchymal density in the left upper lung is of uncertain etiology but worrisome for malignancy. Recommendations as above. Dictated on workstation # [id number] Dict: 07/01/18 1534 Trans: 07/01/18 1601 [facility] [id number] Interpreted by: SHAWNA GIBBONS MD Electronically signed by: Reviewed: Reviewed by Nh Diagonstic Imaging: Xray Plain Films/CT/US/NM/MRI: pelvis, hip (l) Comments VIA [facility]. [place], [place] NAME: SOURAVJULIANA SHARKEY [facility] REC#: [id number] PT STATUS: REG ER : 1965 PHYSICIAN: CODY SCHRADER MD ADMIT DATE: 07/01/18/ER Draft Date of Exam:07/01/18 PELVIS WITH LEFT HIP 2-3 VIEWS INDICATION: Fell off toilet. COMPARISON: None available. TECHNIQUE: Three radiographs of the pelvis and left hip dated 07/01/2018. FINDINGS: Shunt catheter is identified overlying the abdomen. The sacroiliac joints are intact. No acute fracture or dislocation. No destructive osseous process. The left femoral head maintains its normal shape and contour. IMPRESSION: No acute osseous abnormality with minimal degenerative changes. Catheter seen overlying the abdomen. Dictated on workstation # [id number] Dict: 07/01/18 1553 Trans: 07/01/18 1601 [facility] [id number] Interpreted by: JONNY HUITRON MD Electronically signed by: Reviewed: Reviewed by Me Departure Impression Primary Impression: Fall Qualified Codes: W19.XXXA - Unspecified fall, initial encounter Additional Impressions: Lung mass Headache Qualified Codes: G44.209 - Tension-type headache, unspecified, not intractable Disposition: 01 HOME, SELF-CARE Condition: Stable Departure-Patient Inst. Decision time for Depature: 17:25 Referrals: JULIANA WINSLOW MD (PCP) Primary Care Physician ESTEPHANIA IVAN (Family) Primary Care Physician Patient Instructions: Preventing Falls in the Older Adult Add. Discharge Instructions: Tuesday morning and have the nurses call your primary care doctor and request CT of the chest and follow-up to workup the lung mass as seen on today's imaging. Return to the ER for further concerns. All discharge instructions reviewed with patient and/or family. Voiced understanding. Copy Copies To 1: KIT WILEY TITUS J Jul 01, 2018 14:18
--- OUTSIDE RECORDS SUMMARY | 2018-07-01 14:18 | XMS REPORT ---
Author Author JENIFER BRAY Organization [facility] Address [address] [place] [address] Care Team Providers Care Doorperson Name Role Phone KATARINA JENIFER Unavailable PROBLEMS Type Condition ICD9-CM Code [id number] Code Onset Dates Condition Status SNOMED Code Problem Dementia with behavioral disturbance, unspecified dementia type F03.91 Active 4856546928483 Problem Unsteady gait R26.81 Active 18724215 Problem Other chronic pain G89.29 Active 05280656 Problem Mood disorder F39 Active 72784815 Problem Unspecified mental disorder due to known physiological condition F09 Active 118838638 Problem Anxiety F41.9 Active 18661916 ALLERGIES Unknown Allergies SOCIAL HISTORY No smoking Hx information available PLAN OF CARE VITAL SIGNS MEDICATIONS Medication Instructions Dosage Frequency Start Date End Date Duration Status Lexapro 20 MG Orally Once a day 1 tablet 24h 90 days Active Amitriptyline HCl 25 MG Orally Once a day 1 tablet at bedtime 24h Apr, 135 days Active Depakote 500 MG Orally 2 times a day 3 capsules 12h 50 days Active Breo Ellipta 100-25 MCG/INH Inhalation Once a day 1 puff 24h 28 days Active Keppra 500 MG Orally 2 times a day 3 capsules 12h 90 days Active RESULTS No Results PROCEDURES No Known procedures IMMUNIZATIONS No Known Immunizations
--- OUTSIDE RECORDS SUMMARY | 2018-07-01 14:18 | XMS REPORT ---
Author Author JENIFER BRAY Organization [facility] Address [address] [place] [address] Care Team Providers Care Hole Digger Operator Name Role Phone JENIFER BRAY Unavailable PROBLEMS Type Condition ICD9-CM Code HOP33-YH Code Onset Dates Condition Status SNOMED Code Problem Other chronic pain G89.29 Active 87771892 Problem Mood disorder F39 Active 44756827 Problem Major depressive disorder, recurrent, moderate F33.1 Active 49697113 Problem Degenerative brain disorder G31.9 Active 34512949 Problem Unsteady gait R26.81 Active 51481903 Problem Anxiety F41.9 Active 33741391 Problem Dementia with behavioral disturbance, unspecified dementia type F03.91 Active 7322676486331 Problem Unspecified mental disorder due to known physiological condition F09 Active 094869427 ALLERGIES Substance Reaction Event Type Date Status Morphine Sulfate Unknown Drug Allergy December, Active SOCIAL HISTORY Never Assessed PLAN OF CARE VITAL SIGNS Height 65 in 2016-12-27 Weight 123 lbs 2016-12-27 Temperature 98.2 degrees Fahrenheit 2016-12-27 Heart Rate 74 bpm 2016-12-27 Respiratory Rate 16 2016-12-27 BMI 20.47 kg/m2 2016-12-27 Blood pressure systolic 118 mmHg 2016-12-27 Blood pressure diastolic 64 mmHg 2016-12-27 MEDICATIONS Medication Instructions Dosage Frequency Start Date End Date Duration Status Wheelchair 1 as directed December, Active Levetiracetam 500 MG TAKE 3 CAPSULES 2 TIMES A DAY ORALLY 30 Active Advair Diskus 500-50 MCG/DOSE Inhalation Twice a day 1 puff 12h Sep, Active Lexapro 20 mg Orally Once a day 1 tablet 24h Active Keppra 500 MG Orally 2 times a day 3 capsules 12h Active Depakote 500 mg Orally 2 times a day 3 capsules 12h Active Memantine HCl 5 mg Orally Once a day 1 tablet 24h Sep, 30 day(s ) Active Clonazepam 1 MG Orally Twice a day 1 tablet 12h Sep, 28 days Active Amitriptyline HCl 25 MG Orally Once a day 1 tablet at bedtime 24h Apr, Active [place] 10-325 MG Orally every 6 hrs 1 tablet as needed 6h Nov, 28 days Active ProAir HFA 108 (90 Base) MCG/ACT Inhalation every 4 hrs 2 puffs as needed for cough or short of breath 4h 30 days Active Venlafaxine HCl ER 225 MG Orally Once a day 1 tablet with food 24h Sep, Active Omeprazole 20 mg Orally Once a day 1 capsules 24h Active Ondansetron 4 MG Orally every 8 hrs PRN 1 tablet on the tongue and allow to dissolve Aug, Active RESULTS No Results PROCEDURES No Known procedures IMMUNIZATIONS No Known Immunizations MEDICAL (GENERAL) HISTORY Type Description Date Medical History Toxoplasmosis Medical History migraine Medical History dementia Medical History depression Medical History alzheimers disease Medical History epilepsy Medical History COPD Surgical History cholecystectomy Surgical History appendectomy Surgical History 27 brain surgeries including shunt, [place] Surgical History neck fusion 09/26, 09/28 Surgical History right hand surgery Hospitalization History surgeries Hospitalization History seizures 12/2015
--- OUTSIDE RECORDS SUMMARY | 2018-07-01 14:18 | XMS REPORT ---
Author Author JENIFER BRAY Organization [facility] Address [address] [place] [address] Care Team Providers Care Slab Polisher Name Role Phone JENIFER BRAY Unavailable PROBLEMS Type Condition ICD9-CM Code [id number] Code Onset Dates Condition Status SNOMED Code Problem Other chronic pain G89.29 Active 60365081 Problem Unspecified mental disorder due to known physiological condition F09 Active 390764510 Problem Anxiety F41.9 Active 99169994 Problem Mood disorder F39 Active 48872381 Problem Other chronic pain G89.29 Active 14965183 Problem Sleep apnea, unspecified type G47.30 Active 41213393 Problem Dementia with behavioral disturbance, unspecified dementia type F03.91 Active 7210809792523 Problem Unsteady gait R26.81 Active 64450773 Problem Degenerative brain disorder G31.9 Active 32338207 Problem Major depressive disorder, recurrent, moderate F33.1 Active 12261347 ALLERGIES No Information ENCOUNTERS Encounter Location Date Diagnosis [place] [id number] [place] [address] 70180- 6413 Nov, [place] [id number] [place] [address] 89860- 1716 Nov, [place] [id number] [place] [address] 86818- 5295 Nov, [facility] [address] [place] [id number] Oct, Tear of skin of plantar aspect of right foot, initial encounter S91.311A [place] [id number] [place] [address] 38693- 6801 Oct, [place] [id number] [place] [address] 93590- 2565 Oct, [facility] [address] [place] [id number] Oct, [facility] [id number] [id number] Oct, [facility] [id number] [id number] Sep, [facility] [id number] [id number] Sep, [facility] [id number] [id number] Sep, [facility] [id number] [id number] Sep, [facility] [address], [place] [address] Sep, [facility] [address], [place] [address] Sep, Other chronic pain G89.29 and Pain in left knee M25.562 [facility] [id number], [place] [address] Sep, [facility] [address] [place] [id number] Sep, Plantar fasciitis of left foot M72.2 and Pain in right knee M25.561 [facility] [id number] [id number] Aug, [facility] [id number], [place] [address] 8[address] Aug, [facility] [id number], [place] [address] Aug, [facility] [address] [address] Aug, Chronic daily headache R51 [facility] [address] [id number], [place] [address] Aug, [facility] [address] [id number] Aug, Edema, unspecified type R60.9 ; Weight gain R63.5 and Sleep apnea, unspecified type G47.[address] [facility] [address] [id number] Jul, Acute pain of left knee M25.562 and Plantar fasciitis of left foot M72.2 [facility] [address], [place] [address] Jul, [facility] [address] [id number] Jul, Plantar fasciitis of left foot M72.2 and Chronic daily headache R51 [facility] [id number], [place] [id number] Jul, [facility] [id number] [id number] Jun, [facility] [address] [id number], [place] [address] 2546 Jun, [facility] [id number] [place] [id number] Jun, [facility] [id number] [place] [id number] Jun, [facility] [id number] [id number] May, [facility] [id number] [place] [id number] May, [facility] [id number], [place] [address] 2542 May, Stress incontinence of urine N39.3 [facility] [id number] [place] [id number] May, [facility] [id number] May, Encounter for examination for admission to correction Z02.2 ; Toxoplasmosis B58.9 ; Seizures R56.9 ; Major depressive disorder, recurrent, moderate F33.1 ; Degenerative brain disorder G31.9 and Unsteady gait R26.81 [facility] [id number] [place] [address] 68607- 2546 May, [facility] [id number] [place] [address] 21733- 3626 May, Mood disorder F39 [facility] [place] [id number] [place] [address] 17892- 3181 May, [facility] [id number] [place] [address] 88987- 7965 Apr, [facility] [id number] [place] [address] 20872- 7120 Mar, [facility] [id number] [place] [address] 69975- 9392 Mar, [facility] [id number] [place] [address] 63642- 6467 Mar, [facility] [id number] [place] [address] 31996- 7551 Mar, [facility] [id number] [place] [address] 15083- 0311 Mar, [facility] [place] [id number] [place] [address] 29686- 8473 Mar, Stress incontinence of urine N39.3 [facility] [id number] [place] [id number] Mar, [facility] [id number] [place] [address] 71550- 3443 Feb, [facility] [id number] [place] [address] 81289- 0076 Feb, [facility] [id number] [place] [address] 91384- 1875 Feb, [facility] [address] [id number] [address]- 7127 Feb, [facility] [address] [facility] [id number] [place] [address]- 5678 Feb, [facility] [address] [facility] [id number] [place] [address]- 3750 Feb, [facility] [address] [address]- 5116 Feb, [facility] [address] [facility] [id number] [place] [address]- 5270 Jan, [facility] [address] [address] Jan, [facility] [address] [id number] [address]- 1616 Jan, [facility] [address]65[address] [address]- 0605 Jan, [facility] [address], [place] [address]- 0272 Jan, [facility] [address], [place] [address]- 1446 Jan, [facility] [address], [place] [address]- 8088 Jan, [facility] [address], [place] [address]- 8199 Jan, General weakness R53.1 and Dementia with behavioral disturbance, unspecified dementia type F03.91 [facility] [address] [facility] [id number], [place] [address]- 8369 December, [facility] [address], [place] [address]- 8866 December, Other chronic pain G89.29 [facility] [address], [place] [address]- 9234 December, [facility] [id number] [place] [address] 46630- 0851 December, Unsteady gait R26.81 ; Generalized weakness R53.1 ; Unspecified mental disorder due to known physiological condition F09 and Generalized headaches R51 [facility] [id number] [place] [address] 69704- 7877 December, [facility] [id number] [place] [address] 99648- 6066 Nov, Anxiety F41.9 [place] [id number] [place] [address] 50992- 9958 Nov, Mood disorder F39 [place] [id number] [place] [address] 54311- 2717 Oct, [place] [id number] [place] [address] 48626- 0822 Oct, Anxiety F41.9 [place] [id number] [place] [address] 06666- 3158 Oct, Other chronic pain G89.29 [place] [id number] [place] [address] 61407- 0926 Sep, Other chronic pain G89.29 ; Pain in left knee M25.562 ; Pain in right knee M25.561 and Anxiety F41.9 [place] [id number] [place] [address] 54410- 8993 Sep, MDD (major depressive disorder), recurrent episode, mild F33.0 ; Degenerative brain disorder G31.9 and Other mcc (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 Z79.899 [place] [id number] [place] [address] 22634- 1839 Sep, [place] [id number] [place] [address] 99766- 6240 Sep, [place] [id number] [place] [address] 18097- 9222 Sep, Mood disorder F39 ; Pain of left leg M79.605 and Pain in right leg M79.604 [facility] [id number] [place] [address] 42426- 5726 Sep, Seizures R56.9 [facility] [id number] [place] [address] 39528- 2046 Sep, [facility] [address] 80149- 1797 Sep, [facility] [id number] [place] [address] 66002- 6638 Sep, [facility] [id number] [place] [address] 30682- 5764 Aug, Bronchitis J40 [facility] [address] 83659- 9947 Aug, Bronchitis J40 and Encounter for drug screening Z02.83 [facility] [id number] [place] [address] 87822- 8221 Aug, [facility] [id number] [place] [address] 40933- 1493 Aug, Seizures R56.9 [facility] [id number] [place] [address] 24115- 3031 Aug, Seizures R56.9 [facility] [id number] [place] [address] 20178- 9442 Aug, Major depressive disorder, recurrent, moderate F33.1 and Seizures R56.9 [facility] [id number] [place] [address] 33803- 3886 Aug, [facility] [id number] [place] [address] 39664- 8983 Aug, [facility] [id number] [place] [address] 89930- 4937 Aug, Major depressive disorder, recurrent, moderate F33.1 and Seizures R56.9 [place] [id number] [place] [address] 77357- 8337 Jul, Major depressive disorder, recurrent, moderate F33.1 and Degenerative brain disorder G31.9 [place] [id number] [place] [address] 28812- 4636 Jul, Seizures R56.9 [place] [id number] [place] [address] 80348- 7990 Apr, [place] [id number] [place] [address] 61917- 5867 Apr, Major depressive disorder, recurrent, moderate F33.1 ; Anxiety F41.9 and Degenerative brain disorder G31.9 [place] [id number] [place] [address] 54393- 8280 Apr, Mood disorder F39 [place] [id number] [place] [address] 18853- 9497 Apr, Arthritis M19.90 [place] [id number] [place] [address] 67906- 2095 Mar, Arthritis M19.90 ; Degenerative brain disorder G31.9 and Nonintractable generalized idiopathic epilepsy without status epilepticus G40.309 [place] [id number] [place] [address] 28812- 1066 Feb, IMMUNIZATIONS No Known Immunizations SOCIAL HISTORY Never Assessed REASON FOR VISIT Controlled Med Refill PLAN OF CARE VITAL SIGNS MEDICATIONS Medication Instructions Dosage Frequency Start Date End Date Duration Status Adams 10-325 MG Orally every 6 hrs 1 [...] Surgical History 27 brain surgeries including shunt, [place] Surgical History neck fusion 2/5, 2/7 Surgical History right hand surgery Hospitalization History surgeries Hospitalization History seizures 12/2015
--- OUTSIDE RECORDS SUMMARY | 2018-07-01 14:18 | XMS REPORT ---
Author Author ESTEPHANIA IVAN Organization [facility] Address [address] [place] [address] Care Team Providers Care Tree Tapping Laborer Name Role Phone ESTEPHANIA IVAN Unavailable PROBLEMS Type Condition ICD9-CM Code FKB35-SS Code Onset Dates Condition Status SNOMED Code Problem Unspecified mental disorder due to known physiological condition F09 Active 242729360 Problem Major depressive disorder, recurrent, moderate F33.1 Active 07772490 Problem Dementia with behavioral disturbance, unspecified dementia type F03.91 Active 1816238615190 Problem Mood disorder F39 Active 55107765 Problem Other chronic pain G89.29 Active 86315436 Problem Anxiety F41.9 Active 05161171 Problem Unsteady gait R26.81 Active 90035473 Problem History of brain shunt Z98.2 Active 366983638 Problem PTSD (post-traumatic stress disorder) F43.10 Active 94542937 Problem Sleep apnea, unspecified type G47.30 Active 99041064 Problem Degenerative brain disorder G31.9 Active 35123509 Problem Depressive disorder, not elsewhere classified F32.9 Active 62902922 Problem Other chronic pain G89.29 Active 88593993 ALLERGIES No Information ENCOUNTERS Encounter Location Date Diagnosis [facility] [id number] [address] Feb, [facility] [id number] [address] Feb, Other chronic pain G89.29 and Pain in right knee M25.561 [facility] [id number] [place] [address] 84429- 8585 Feb, PTSD (post-traumatic stress disorder) F43.10 [facility] [id number], [place] [address] Feb, [facility] [address] [id number] Jan, Dementia with behavioral disturbance, unspecified dementia type F03.91 ; Other chronic pain G89.29 and Plantar fasciitis M72.[address] [facility] [address] [id number] Jan, Daily headache R51 ; History of brain shunt Z98.2 ; Plantar fasciitis of left foot M72.2 ; Pain in right knee M25.561 and Pain in left knee M25.562 [facility] [id number] [place] [address] 98201- 2202 Jan, [facility] [id number] [place] [address] 28472- 1141 Jan, Pain in right knee M25.561 [facility] [id number] [place] [address] 79842- 0060 Jan, [facility] [id number] [place] [address] 48943- 9069 Jan, [facility] [id number] [place] [address] 72718- 0311 Jan, [facility] [id number] [place] [address] 04182- 5201 December, Other chronic pain G89.[address] [facility] [address] [id number] December, Pain in left knee M25.562 ; Pain in right leg M79.604 ; Other chronic pain G89.29 ; Localized edema R60.0 and PTSD (post-traumatic stress disorder) F43.10 [facility] [id number] [place] [address] 70641- 2667 December, [facility] [id number] [place] [address] 37754- 1291 December, PTSD (post-traumatic stress disorder) F43.10 [facility] [id number] [place] [address] 97537- 3085 December, [facility] [address] [place] [address] 71233- 6009 December, [facility] [id number] [place] [address] 34784- 1121 December, Depressive disorder, not elsewhere classified F32.9 and Cognitive change R41.89 [facility] [id number] [place] [address] 36464- 7087 Nov, Major depressive disorder, recurrent, moderate F33.1 [facility] [id number] [place] [address] 06600- 7668 Nov, [facility] [id number] [place] [address] 33514- 6241 Nov, [facility] [id number] [place] [address] 44469- 7313 Nov, [facility] [id number] [place] [address] 60489- 1203 Nov, [facility] [id number] [place] [address] 21496- 0264 Nov, Mood disorder F39 [facility] [id number] [place] [address] 75141- 7423 Nov, Depressive disorder, not elsewhere classified F32.9 and Cognitive change R41.89 [facility] [id number] [place] [address] 30442- 2096 Nov, [facility] [address] [place] [address] 58796- 6754 Nov, [facility] [address] [place] [id number] Oct, Tear of skin of plantar aspect of right foot, initial encounter S91.311A [facility] [address], [place] [address] 67[address] Oct, [facility] [id number], [place] [address] 2546 Oct, [facility] [id number] [id number] Oct, [facility] [id number] [id number] Oct, [facility] [id number] [id number] Sep, [facility] [id number] [id number] Sep, [facility] [id number] [id number] Sep, [facility] [id number] [id number] Sep, [facility] [address], [place] [address] 5[address] Sep, [facility] [address], [place] [address] 6196 Sep, Other chronic pain G89.29 and Pain in left knee M25.562 [facility] [address], [place] [address] 4[address] Sep, [facility] [address] [place] [id number] Sep, Plantar fasciitis of left foot M72.2 and Pain in right knee M25.561 [facility] [id number] [id number] Aug, [facility] [address], [place] [address] 8796 Aug, [facility] [address], [place] [address] 8418 Aug, [facility] [address], [place] [address] 9[address] Aug, Chronic daily headache R51 [facility] [address] [facility] [id number], [place] [address]- 2546 Aug, [facility] [address] [place] [id number] Aug, Edema, unspecified type R60.9 ; Weight gain R63.5 and Sleep apnea, unspecified type G47.30 [facility] [address] [place] [id number] Jul, Acute pain of left knee M25.562 and Plantar fasciitis of left foot M72.2 [facility] [address] [id number], [place] [address] 0966 Jul, [facility] [address] [place] [id number] Jul, Plantar fasciitis of left foot M72.2 and Chronic daily headache R51 [facility] [address] [id number] [id number] Jul, [facility] [address] [id number] [id number] Jun, [facility] [address] [facility] [id number], [place] [address]- 6046 Jun, [facility] [address] [id number] [id number] Jun, [facility] [address] [id number] [id number] Jun, [facility] [address] [id number] [id number] May, [facility] [address] [id number] [id number] May, [facility] [address] [facility] [id number], [place] [address]- 2546 May, Stress incontinence of urine N39.3 [facility] [address] [id number] [id number] May, [facility] [address] [place] [id number] May, Encounter for examination for admission to senior living Z02.2 ; Toxoplasmosis B58.9 ; Seizures R56.9 ; Major depressive disorder, recurrent, moderate F33.1 ; Degenerative brain disorder G31.9 and Unsteady gait R26.81 [facility] [id number] [place] [address] 48456- 5559 May, [facility] [address] [address]33- 9641 May, Mood disorder F39 [facility] [id number] [place] [address] 796348- 3492 May, [facility] [id number] [place] [address] 56719- 9829 Apr, [facility] [id number] [place] [address] 18759- 85[address] Mar, [facility] [id number] [place] [address] 01531- 8183 Mar, [facility] [id number] [place] [address] 20831- 15[address] Mar, [facility] [id number] [place] [address] 00714- [address]102 Mar, [facility] [id number] [place] [address] 10054- 1053 Mar, [facility] [id number] [place] [address] 22872- 0445 Mar, Stress incontinence of urine N39.3 [facility] [id number] [place] [address] [id number] Mar, [facility] [id number] [place] [address] [id number]- [address] Feb, [facility] [id number] [place] [address] 03565- 7576 Feb, [facility] [address] [place] [address]- 4934 Feb, [facility] [address] [facility] [id number] [place] [address]- 8930 Feb, [facility] [address] [facility] [id number] [place] [address]- 6238 Feb, [facility] [address] [facility] [id number] [place] [address]- 6913 Feb, [facility] [address] [facility] [id number] [place] [address]- 2952 Feb, [facility] [address] [facility] [id number] [place] [address]- 5578 Jan, [facility] [address] [facility] [id number] [place] [address]- 1233 Jan, [facility] [address] [place] [address]- 6113 Jan, [facility] [address] [facility] [id number] [place] [address]- 9542 Jan, [facility] [address] [place] [address]- 3301 Jan, [facility] [id number] [address]- 1023 Jan, [facility] [address] [place] [address]- 3574 Jan, [facility] [id number], [place] [address]- 3883 Jan, General weakness R53.1 and Dementia with behavioral disturbance, unspecified dementia type F03.91 [facility] [id number] [place] [address]- 1052 December, [facility] [id number] [place] [address]- 3922 December, Other chronic pain G89.29 [facility] [id number], [place] [address]- 2656 December, [facility] [id number] [place] [address] 12605- 2781 December, Unsteady gait R26.81 ; Generalized weakness R53.1 ; Unspecified mental disorder due to known physiological condition F09 and Generalized headaches R51 [facility] [id number] [place] [address] 57150- 4197 December, [facility] [id number] [place] [address] 43720- 8028 Nov, Anxiety F41.9 [address] [id number] [place] [address] 07919- 5440 Nov, Mood disorder F39 [address] [facility] [id number] [place] [address] 63876- 6671 Oct, [address] [id number] [place] [address] 33299- 3237 Oct, Anxiety F41.9 [address] [facility] [id number] [place] [address] 04369- 3422 Oct, Other chronic pain G89.29 [address] [id number] [place] [address] 55244- 7346 Sep, Other chronic pain G89.29 ; Pain in left knee M25.562 ; Pain in right knee M25.561 and Anxiety F41.9 [address] [id number] [place] [address] 20252- 2446 Sep, MDD (major depressive disorder), recurrent episode, mild F33.0 ; Degenerative brain disorder G31.9 and Other care home (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 Z79.899 [facility] [id number] [place] [address] 44016- 7515 Sep, [address] [facility] [id number] [place] [address] 47284- 9753 Sep, [facility] [address] [place] [address] 29493- 1889 Sep, Mood disorder F39 ; Pain of left leg M79.605 and Pain in right leg M79.604 [facility] [id number] [place] [address] 66655 2546 14 Sep, [address] [facility] [id number] [place] [address] 21192 2546 Sep, [facility] [id number] [place] [address] 84979- 2546 Sep, [facility] [id number] [place] [address] 53879- 3946 Sep, [facility] [id number] [place] [address] 59152- 1136 Aug, Bronchitis J40 [facility] [id number] [place] [address] 88859- 5197 Aug, Bronchitis J40 and Encounter for drug screening Z02.83 [facility] [id number] [place] [address] 64101- 7004 Aug, [facility] [address] [place] [address] 65184- 3893 Aug, Seizures R56.9 [facility] [id number] [place] [address] 16292 2546 Aug, Seizures R56.9 [facility] [id number] [place] [address] 54375- 2541 Aug, Major depressive disorder, recurrent, moderate F33.[address] [facility] [id number] [place] [address] 85979 2546 Aug, [facility] [id number] [place] [address] 73921- 2934 Aug, [address] [facility] [place] [address] 84060- 4534 Aug, Major depressive disorder, recurrent, moderate F33.1 and Seizures R56.9 [address] [place] [place] [address] 95480- 5880 Jul, Major depressive disorder, recurrent, moderate F33.1 and Degenerative brain disorder G31.9 [place] [id number] [place] [address] 79093- 4318 Jul, Seizures R56.9 [address] [id number] [place] [address] 33660- 5034 Apr, [address] [facility] [id number] [place] [address] 24747- 7559 Apr, Major depressive disorder, recurrent, moderate F33.1 ; Anxiety F41.9 and Degenerative brain disorder G31.9 [address] [facility] [id number] [place] [address] 51813- 3378 Apr, Mood disorder F39 [address] [id number] [place] [address] 04368- 8805 Apr, Arthritis M19.90 [place] [facility] [id number] [place] [address] 18073- 1737 Mar, Arthritis M19.90 ; Degenerative brain disorder G31.9 and Nonintractable generalized idiopathic epilepsy without status epilepticus G40.309 [address] [facility] [id number] [place] [address] 91783- 4938 Feb, IMMUNIZATIONS No Known Immunizations SOCIAL HISTORY [...] Surgical History 27 brain surgeries including shunt, [place] Surgical History neck fusion 09/26, 09/28 Surgical History right hand surgery Hospitalization History surgeries Hospitalization History seizures 12/2015
--- OUTSIDE RECORDS SUMMARY | 2018-07-01 14:18 | XMS REPORT ---
Author Author ESTEPHANIA IVAN Organization [facility] Address [address] [place] [address] Care Team Providers Care Head Of Digital Name Role Phone ESTEPHANIA IVAN Unavailable PROBLEMS Type Condition ICD9-CM Code PYU52-DT Code Onset Dates Condition Status SNOMED Code Problem Unspecified mental disorder due to known physiological condition F09 Active 544921760 Problem Major depressive disorder, recurrent, moderate F33.1 Active 31791568 Problem Dementia with behavioral disturbance, unspecified dementia type F03.91 Active 8771657129776 Problem Mood disorder F39 Active 05569775 Problem Other chronic pain G89.29 Active 12048310 Problem Anxiety F41.9 Active 85686531 Problem Unsteady gait R26.81 Active 38303885 Problem History of brain shunt Z98.2 Active 932742449 Problem PTSD (post-traumatic stress disorder) F43.10 Active 36766369 Problem Sleep apnea, unspecified type G47.30 Active 06804522 Problem Degenerative brain disorder G31.9 Active 66713898 Problem Depressive disorder, not elsewhere classified F32.9 Active 53378871 Problem Other chronic pain G89.29 Active 10471421 ALLERGIES No Information ENCOUNTERS Encounter Location Date Diagnosis [facility] [id number], [place] [address] Feb, [facility] [id number] [address] Feb, Other chronic pain G89.29 and Pain in right knee M25.561 [facility] [id number] [place] [address] 30204- 5542 Feb, PTSD (post-traumatic stress disorder) F43.10 [facility] [id number] [address] Feb, [facility] [address] [id number] Jan, Dementia with behavioral disturbance, unspecified dementia type F03.91 ; Other chronic pain G89.29 and Plantar fasciitis M72.[address] [facility] [address] [id number] Jan, Daily headache R51 ; History of brain shunt Z98.2 ; Plantar fasciitis of left foot M72.2 ; Pain in right knee M25.561 and Pain in left knee M25.562 [facility] [id number] [place] [address] 92761- 9088 Jan, [facility] [id number] [place] [address] 31418- 5159 Jan, Pain in right knee M25.561 [facility] [id number] [place] [address] 42366- 4894 Jan, [facility] [id number] [place] [address] 95508- 8497 Jan, [facility] [id number] [place] [address] 48250- 5203 Jan, [facility] [id number] [place] [address] 61833- 8817 December, Other chronic pain G89.[address] [facility] [address] [id number] December, Pain in left knee M25.562 ; Pain in right leg M79.604 ; Other chronic pain G89.29 ; Localized edema R60.0 and PTSD (post-traumatic stress disorder) F43.10 [facility] [id number] [place] [address] 72416- 4295 December, [facility] [id number] [place] [address] 03318- 4930 December, PTSD (post-traumatic stress disorder) F43.10 [facility] [id number] [place] [address] 69685- 9978 December, [facility] [id number] [place] [address] 35587- 2549 December, [facility] [id number] [place] [address] 49904- 1933 December, Depressive disorder, not elsewhere classified F32.9 and Cognitive change R41.89 [facility] [id number] [place] [address] 38146- 6121 Nov, Major depressive disorder, recurrent, moderate F33.1 [facility] [id number] [place] [address] 79497- 7320 Nov, [facility] [id number] [place] [address] 87842- 9723 Nov, [facility] [id number] [place] [address] 10952- 3732 Nov, [facility] [id number] [place] [address] 62567- 9438 Nov, [facility] [id number] [place] [address] 97613- 1544 Nov, Mood disorder F39 [facility] [id number] [place] [address] 92217- 5401 Nov, Depressive disorder, not elsewhere classified F32.9 and Cognitive change R41.89 [facility] [id number] [place] [address] 92664- 9570 Nov, [facility] [id number] [place] [address] 00045- 6713 Nov, [facility] [address] [id number] Oct, Tear of skin of plantar aspect of right foot, initial encounter S91.311A [facility] [address], [place] [address] 4532 Oct, [facility] [id number], [place] [address] 2546 Oct, [facility] [id number] [id number] Oct, [facility] [id number] [id number] Oct, [facility] [id number] [id number] Sep, [facility] [id number] [id number] Sep, [facility] [id number] [id number] Sep, [facility] [id number] [id number] Sep, [facility] [address], [place] [address]- 8356 Sep, [facility] [address], [place] [address] 0426 Sep, Other chronic pain G89.29 and Pain in left knee M25.562 [facility] [address], [place] [address] 6[address] Sep, [facility] [address] [id number] Sep, Plantar fasciitis of left foot M72.2 and Pain in right knee M25.561 [facility] [id number] [id number] Aug, [facility] [address], [place] [address] 0086 Aug, [facility] [address], [place] [address] 7366 Aug, [facility] [address], [place] [address] 9894 Aug, Chronic daily headache R51 [facility] [address] [facility] [id number] [address] 2546 Aug, [facility] [address] [id number] Aug, Edema, unspecified type R60.9 ; Weight gain R63.5 and Sleep apnea, unspecified type G47.30 [facility] [address] [id number] Jul, Acute pain of left knee M25.562 and Plantar fasciitis of left foot M72.2 [facility] [address] [id number], [place] [address] 5346 Jul, [facility] [address] [id number] Jul, Plantar fasciitis of left foot M72.2 and Chronic daily headache R51 [facility] [address] [id number] [id number] Jul, [facility] [address] [id number] [id number] Jun, [facility] [address] [facility] [id number], [place] [address] Jun, [facility] [address] [id number] [id number] Jun, [facility] [address] [id number] [id number] Jun, [facility] [address] [id number][place] [id number] May, [facility] [address] [id number][place] [id number] May, [facility] [address] [facility] [id number], [place] [address]- 2546 May, Stress incontinence of urine N39.3 [facility] [address] [id number] [id number] May, [facility] [address] [id number] May, Encounter for examination for admission to group home Z02.2 ; Toxoplasmosis B58.9 ; Seizures R56.9 ; Major depressive disorder, recurrent, moderate F33.1 ; Degenerative brain disorder G31.9 and Unsteady gait R26.81 [facility] [id number] [place] [address] 25203- 7871 May, [facility] [address] [address]197- 9994 May, Mood disorder F39 [facility] [id number] [place] [address] 618134- 0281 May, [facility] [id number] [place] [address] 22917- 1785 Apr, [facility] [id number] [place] [address] 71337- 8452 Mar, [facility] [id number] [place] [address] 84040- 2966 Mar, [facility] [id number] [place] [address] 49233- 0114 Mar, [facility] [id number] [place] [address] 44522- 1051 Mar, [facility] [id number] [place] [address] 71844- 8946 Mar, [facility] [id number] [place] [address] 29700- 7534 Mar, Stress incontinence of urine N39.3 [facility] [id number] [place] [address] [id number] Mar, [facility] [id number] [place] [address] [id number]- 9399 Feb, [facility] [id number] [place] [address] 48951- 8265 Feb, [facility] [address] [place] [address]- 5362 Feb, [facility] [address] [facility] [id number] [place] [address]- 0213 Feb, [facility] [address] [facility] [id number] [place] [address]- 9221 Feb, [facility] [address] [facility] [id number] [place] [address]- 6569 Feb, [facility] [address] [facility] [id number] [place] [address]- 2623 Feb, [facility] [address] [facility] [id number] [place] [address]- 5863 Jan, [facility] [address] [facility] [id number] [place] [address]- 2227 Jan, [facility] [address] [address]- 1478 Jan, [facility] [address] [facility] [id number] [place] [address]- 2196 Jan, [facility] [address] [address]- 2169 Jan, [facility] [id number] [address]- 2087 Jan, [facility] [address] [address]- 5776 Jan, [facility] [id number], [place] [address]- 6798 Jan, General weakness R53.1 and Dementia with behavioral disturbance, unspecified dementia type F03.91 [facility] [id number] [address]- 6511 December, [facility] [id number] [address]- 2535 December, Other chronic pain G89.29 [facility] [address] [id number], [place] [address]- 5923 December, [facility] [id number] [place] [address] 63747- 3451 December, Unsteady gait R26.81 ; Generalized weakness R53.1 ; Unspecified mental disorder due to known physiological condition F09 and Generalized headaches R51 [facility] [id number] [place] [address] 12068- 0651 December, [facility] [id number] [place] [address] 33996- 6789 Nov, Anxiety F41.9 [address] [facility] [id number] [place] [address] 10544- 2869 Nov, Mood disorder F39 [place] [facility] [id number] [place] [address] 14797- 8798 Oct, [place] [facility] [id number] [place] [address] 08922- 0475 Oct, Anxiety F41.9 [address] [place] [id number] [place] [address] 22632- 7624 Oct, Other chronic pain G89.29 [address] [place] [id number] [place] [address] 51608- 0090 Sep, Other chronic pain G89.29 ; Pain in left knee M25.562 ; Pain in right knee M25.561 and Anxiety F41.9 [address] [place] [id number] [place] [address] 31259- 1680 Sep, MDD (major depressive disorder), recurrent episode, mild F33.0 ; Degenerative brain disorder G31.9 and Other longterm (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 Z79.899 [facility] [id number] [place] [address] 69592- 5086 Sep, [place] [id number] [place] [address] 86486- 8915 Sep, [facility] [address] [place] [address] 98632- 8496 Sep, Mood disorder F39 ; Pain of left leg M79.605 and Pain in right leg M79.604 [facility] [address] [place] [address] 25853 2546 14 Sep, 2016 Seizures R56.9 [facility] [id number] [place] [address] 18282 2546 Sep, [facility] [id number] [place] [address] 69920- 2546 Sep, [facility] [id number] [place] [address] 72438- 3306 Sep, [facility] [id number] [place] [address] 50154- 1656 Aug, Bronchitis J40 [facility] [id number] [place] [address] 21806- 6154 Aug, Bronchitis J40 and Encounter for drug screening Z02.83 [facility] [id number] [place] [address] 47833- 2540 Aug, [facility] [id number] [place] [address] 24715- 3233 Aug, Seizures R56.9 [facility] [id number] [place] [address] 52626 2546 Aug, Seizures R56.9 [facility] [id number] [place] [address] 49818- 254 Aug, Major depressive disorder, recurrent, moderate F33.1 and Seizures R56.9 [facility] [id number] [place] [address] 64485 2546 Aug, [facility] [id number] [place] [address] 83169- 3821 Aug, [place] [id number] [place] [address] 76130- 7118 Aug, Major depressive disorder, recurrent, moderate F33.1 and Seizures R56.9 [place] [id number] [place] [address] 33422- 3441 Jul, Major depressive disorder, recurrent, moderate F33.1 and Degenerative brain disorder G31.9 [place] [id number] [place] [address] 76303- 7486 Jul, Seizures R56.9 [place] [id number] [place] [address] 04650- 2470 Apr, [place] [id number] [place] [address] 12866- 9469 Apr, Major depressive disorder, recurrent, moderate F33.1 ; Anxiety F41.9 and Degenerative brain disorder G31.9 [place] [id number] [place] [address] 97423- 7540 Apr, Mood disorder F39 [place] [id number] [place] [address] 02162- 3528 Apr, Arthritis M19.90 [place] [id number] [place] [address] 14136- 6698 Mar, Arthritis M19.90 ; Degenerative brain disorder G31.9 and Nonintractable generalized idiopathic epilepsy without status epilepticus G40.309 [place] [id number] [place] [address] 01578- 5919 Feb, IMMUNIZATIONS No Known Immunizations SOCIAL HISTORY [...] Surgical History 27 brain surgeries including shunt, [place] Surgical History neck fusion 09/26, 09/28 Surgical History right hand surgery Hospitalization History surgeries Hospitalization History seizures 12/2015
--- OUTSIDE RECORDS SUMMARY | 2018-07-01 14:19 | XMS REPORT ---
Author Author JENIFER BRAY Organization [facility] Address [address] [place] [address] Care Team Providers Care Helpdesk Manager Name Role Phone JENIFER BRAY Unavailable PROBLEMS Type Condition ICD9-CM Code LVS76-ML Code Onset Dates Condition Status SNOMED Code Problem Other chronic pain G89.29 Active 49569277 Problem Unspecified mental disorder due to known physiological condition F09 Active 455376137 Problem Anxiety F41.9 Active 59716982 Problem Mood disorder F39 Active 48251755 Problem Other chronic pain G89.29 Active 92827228 Problem Sleep apnea, unspecified type G47.30 Active 47582362 Problem Dementia with behavioral disturbance, unspecified dementia type F03.91 Active 8957139275481 Problem Unsteady gait R26.81 Active 32368744 Problem Degenerative brain disorder G31.9 Active 67704613 Problem Major depressive disorder, recurrent, moderate F33.1 Active 12879068 ALLERGIES No Information ENCOUNTERS [facility]counter [facility] Date [facility] [address] [place] [id number] Oct, Tear of skin of plantar aspect of right foot, initial encounter S91.311A [facility] [address] [id number] [address] Oct, [facility] [address] [id number], [place] [address] Oct, [facility] [address] [id number][place] [id number] Oct, [facility] [address] [id number] [id number] Oct, [facility] [address] [id number][place] [id number] Sep, [facility] [address] [id number][place] [id number] 14 Sep, 2017 [facility] [id number][place] [id number] Sep, [facility] [id number] [id number] Sep, [facility] [address] [id number], [place] [address] Sep, [facility] [address], [place] [address] Sep, Other chronic pain G89.29 and Pain in left knee M25.562 [facility] [address]100[place], [place] [address] Sep, [facility] [address] [id number] Sep, Plantar fasciitis of left foot M72.2 and Pain in right knee M25.561 [facility] [id number] [id number] Aug, [facility] [address] [id number] [address] Aug, [facility] [address] [address] Aug, [facility] [address] [id number] [address] Aug, Chronic daily headache R51 [facility] [address] [id number] [address] Aug, [facility] [address] [id number] Aug, Edema, unspecified type R60.9 ; Weight gain R63.5 and Sleep apnea, unspecified type G47.30 [facility] [address] [address] Jul, Acute pain of left knee M25.562 and Plantar fasciitis of left foot M72.2 [facility] [address] [id number], [place] [address] Jul, [facility] [address] [address] Jul, Plantar fasciitis of left foot M72.2 and Chronic daily headache R51 [facility] [id number], [place] [id number] Jul, [facility] [address] [id number] [id number] Jun, [facility] [address], [place] [address] Jun, [facility] [id number] [place] [id number] Jun, [facility] [id number][place] [address] Jun, [facility] [id number] [place] [id number] May, [facility] [address] [id number] [address] May, [facility] [address], [place] [address] May, Stress incontinence of urine N39.3 [facility] [id number][place] [address] May, [address] [id number] May, Encounter for examination for admission to prison Z02.2 ; Toxoplasmosis B58.9 ; Seizures R56.9 ; Major depressive disorder, recurrent, moderate F33.1 ; Degenerative brain disorder G31.9 and Unsteady gait R26.81 [facility] [address]65100[place] [address] May, [facility] [address] [id number] [address] May, Mood disorder F39 [facility] [place] [facility] [address] [id number] [place] [address] May, [facility] [place] [facility] [address] [id number] [place] [address] Apr, [facility] [place] [facility] [address] [id number] [place] [address] Mar, [facility] [place] [facility] [address] [id number] [place] [address], [place] [address] Mar, [facility] [place] [facility] [address] [id number] [place] [address] Mar, [facility] [place] [facility] [address] [id number] [place] [address], [place] [address] Mar, [facility] [place] [facility] [address] [id number] [place] [address] Mar, [facility] [place] [facility] [id number] [place] [address] Mar, Stress incontinence of urine N39.3 [facility] [id number] [place] [id number] Mar, [facility] [place] [facility] [address] [id number], [place] [address] Feb, [facility] [place] [facility] [address] [id number], [place] [address] Feb, [facility] [place] [facility] [address] [id number], [place] [address] Feb, [facility] [place] [facility] [address] [id number], [place] [address] Feb, [facility] [place] [facility] [address] [facility] [place] [id number], [place] [address] Feb, [facility] [place] [facility] [address] [id number] [place] [address] Feb, [facility] [place] [facility] [address]005[address]100[place], [place] [address] Feb, [facility] [address]00565100[place], [place] [address] Jan, [facility] [address]00565100[place], [place] [address] Jan, [facility] [address]00565100[place], [place] [address] Jan, [facility] [address]00565100[place], [place] [address] Jan, [facility] [address]00565100[place], [place] [address] Jan, [facility] [address]00565100[place], [place] [address] Jan, [facility] [address]00565100[place], [place] [address] Jan, [facility] [address]65[address], [place] [address] Jan, General weakness R53.1 and Dementia with behavioral disturbance, unspecified dementia type F03.91 [facility] [address]65100[place], [place] [address] December, [facility] [address]005[address]100[place], [place] [address] December, Other chronic pain G89.29 [facility] [address]65100[place], [place] [address] December, [facility] [address], [place] [address] December, Unsteady gait R26.81 ; Generalized weakness R53.1 ; Unspecified mental disorder due to known physiological condition F09 and Generalized headaches R51 [facility] [address]65100[place], [place] [address] December, [facility] [address]100[place], [place] [address] Nov, Anxiety F41.9 [facility] [id number] [place] [address] Nov, Mood disorder F39 [facility] [id number] [place] [address] Oct, [facility] [id number] [place] [address] 26[address] Oct, Anxiety F41.9 [facility] [id number] [place] [address] Oct, Other chronic pain G89.29 [facility] [id number] [place] [address] 6[address] Sep, Other chronic pain G89.29 ; Pain in left knee M25.562 ; Pain in right knee M25.561 and Anxiety F41.9 [facility] [id number] [place] [address]85 Sep, MDD (major depressive disorder), recurrent episode, mild F33.0 ; Degenerative brain disorder G31.9 and 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 [facility] [id number] [place] [address]- 4410 Sep, [facility] [address] [id number], [place] [address] Sep, [facility] [address] [place] [address]- 1224 Sep, Mood disorder F39 ; Pain of left leg M79.605 and Pain in right leg M79.604 [facility] [address], [place] [address] 14 Sep, 2016 Seizures R56.9 [facility] [id number] [place] [address] 08 Sep, 2016 [facility] [id number] [place] [address]- 0948 Sep, [facility] [id number] [place] [address]76- 3026 Sep, [facility] [id number] [place] [address]- 9976 Aug, Bronchitis J40 [facility] [id number] [place] [address]- 5570 Aug, Bronchitis J40 and Encounter for drug screening Z02.83 [facility] [id number] [place] [address]- 0736 Aug, [facility] [id number] [place] [address]- 1083 Aug, Seizures R56.9 [facility] [id number] [place] [address]- 7718 Aug, Seizures R56.9 [facility] [id number] [place] [address]- 7728 Aug, Major depressive disorder, recurrent, moderate F33.1 and Seizures R56.9 [facility] [address] [place] [address] 839[address]- 1797 Aug, [facility] [id number] [place] [address] 42[address]- 9523 Aug, [facility] [id number] [place] [address]75- 8810 Aug, Major depressive disorder, recurrent, moderate F33.1 and Seizures R56.9 [facility] [address] [place] [address]- 6852 Jul, Major depressive disorder, recurrent, moderate F33.1 and Degenerative brain disorder G31.9 [facility] [address] [place] [address]- 5214 Jul, Seizures R56.9 [address], [place] [address]- [address] Apr, [id number] [place] [address]- 9934 Apr, Major depressive disorder, recurrent, moderate F33.1 ; Anxiety F41.9 and Degenerative brain disorder G31.9 [id number] [place] [address]- 3534 Apr, Mood disorder F39 [address] [place] [address]48- 6718 Apr, Arthritis M19.90 [address] [place] [address] 867[address]- 4343 Mar, Arthritis M19.90 ; Degenerative brain disorder G31.9 and Nonintractable generalized idiopathic epilepsy without status epilepticus G40.309 [address], [place] [address] Feb, IMMUNIZATIONS No Known Immunizations SOCIAL HISTORY Never Assessed REASON FOR VISIT concerns PLAN OF CARE VITAL SIGNS MEDICATIONS Unknown Medications RESULTS No Results PROCEDURES No Known procedures INSTRUCTIONS MEDICATIONS ADMINISTERED No Known Medications MEDICAL (GENERAL) HISTORY Type Description Date Medical History Toxoplasmosis Medical History migraine Medical History dementia Medical History depression Medical History alzheimers disease Medical History epilepsy Medical History COPD Surgical History cholecystectomy Surgical History appendectomy Surgical History 27 brain surgeries including shunt, [place] Surgical History neck fusion 09/26, 09/28 Surgical History right hand surgery Hospitalization History surgeries Hospitalization History seizures 12/2015
--- OUTSIDE RECORDS SUMMARY | 2018-07-01 14:19 | XMS REPORT ---
Author Author ESTEPHANIA IVAN Organization [facility] Address [address] [place] [address] Care Team Providers Care Ventilation Worker Name Role Phone ESTEPHANIA IVAN Unavailable PROBLEMS Type Condition ICD9-CM Code QGB38-RN Code Onset Dates Condition Status SNOMED Code Problem Anxiety F41.9 Active 75985967 Problem Unsteady gait R26.81 Active 89914682 Problem Unspecified mental disorder due to known physiological condition F09 Active 654343800 Problem Mood disorder F39 Active 85881755 Problem Other chronic pain G89.29 Active 48324192 Problem Depressive disorder, not elsewhere classified F32.9 Active 01679075 Problem Other chronic pain G89.29 Active 76970354 Problem Major depressive disorder, recurrent, moderate F33.1 Active 82160948 Problem Dementia with behavioral disturbance, unspecified dementia type F03.91 Active 5983665040746 Problem Sleep apnea, unspecified type G47.30 Active 72647900 Problem Degenerative brain disorder G31.9 Active 09235403 ALLERGIES No Information ENCOUNTERS Encounter Location Date Diagnosis [place] [id number] [place] [address] 74696- 4391 December, [facility] [id number] [place] [address] 89614- 8029 December, [facility] [id number] [place] [address] 39938- 8678 December, Depressive disorder, not elsewhere classified F32.9 and Cognitive change R41.89 [place] [id number] [place] [address] 10072- 0703 Nov, Major depressive disorder, recurrent, moderate F33.1 [facility] [id number] [place] [address] 35843- 3887 Nov, [place] [id number] [address] 4[address] Nov, [facility] [address], [place] [address] 1378 Nov, [facility] [address], [place] [address] 1502 Nov, [facility] [id number] [place] [address] 94792- 8587 Nov, Mood disorder F39 [facility] [address], [place] [address] Nov, Depressive disorder, not elsewhere classified F32.9 and Cognitive change R41.89 [facility] [address], [place] [address] 8[address] Nov, [facility] [id number] [place] [address] 23880- 3047 Nov, [facility] [address] [place] [id number] Oct, Tear of skin of plantar aspect of right foot, initial encounter S91.311A [facility] [address], [place] [address] 99[address] Oct, [facility] [id number] [address] Oct, [facility] [id number] [id number] Oct, [facility] [id number] [id number] Oct, [facility] [id number] [id number] 28 Sep, 2017 [facility] [id number][place] [id number] 14 Sep, 2017 [facility] [id number][place] [id number] 13 Sep, 2017 [facility] [id number][place] [id number] Sep, [facility] [address], [place] [address] 101[address] Sep, [facility] [address], [place] [address] 7311 Sep, Other chronic pain G89.29 and Pain in left knee M25.562 [facility] [id number] [place] [address] 61740- 0830 Sep, [facility] [address] [id number] Sep, Plantar fasciitis of left foot M72.2 and Pain in right knee M25.561 [facility] [id number] [place] [id number] Aug, [facility] [id number] [place] [address] 57372- 6692 Aug, [facility] [address], [place] [address] 2568 Aug, [facility] [id number] [place] [address] 92071- 1535 Aug, Chronic daily headache R51 [facility] [id number], [place] [address] 5068 Aug, [facility] [address] [place] [id number] Aug, Edema, unspecified type R60.9 ; Weight gain R63.5 and Sleep apnea, unspecified type G47.30 [facility] [address] [place] [id number] Jul, Acute pain of left knee M25.562 and Plantar fasciitis of left foot M72.2 [facility] [address], [place] [address] Jul, [facility] [id number] Jul, Plantar fasciitis of left foot M72.2 and Chronic daily headache R51 [facility] [id number][place] [id number] Jul, [facility] [id number][place] [id number] Jun, [facility] [address] [facility] [id number], [place] [address] 8[address] Jun, [facility] [address] [id number] [id number] Jun, [facility] [id number] [place] [id number] Jun, [facility] [id number] [id number] May, [facility] [id number] [place] [id number] May, [facility] [address], [place] [address] 1656 May, Stress incontinence of urine N39.3 [facility] [id number][place] [id number] May, [facility] [address] [id number] May, Encounter for examination for admission to senior care Z02.2 ; Toxoplasmosis B58.9 ; Seizures R56.9 ; Major depressive disorder, recurrent, moderate F33.1 ; Degenerative brain disorder G31.9 and Unsteady gait R26.81 [facility] [id number], [place] [address] 00[address] May, [facility] [address] [address] May, Mood disorder F39 [facility] [id number] [address] [address] May, [facility] [place] [facility] [address] [id number] [place] [address]- 9[address] Apr, [facility] [place] [facility] [address] [id number] [place] [address]- 6411 Mar, [facility] [place] [facility] [address] [id number] [place] [address]- 9738 Mar, [facility] [place] [facility] [address] [id number] [place] [address]- 9325 Mar, [facility] [place] [facility] [address] [id number] [place] [address]- 3802 Mar, [facility] [place] [facility] [id number] [place] [address], [place] [address]- 8378 Mar, [facility] [place] [facility] [address] [facility] [id number] [place] [address]- 4432 Mar, Stress incontinence of urine N39.3 [facility] [id number] [place] [address], [place] [id number] Mar, [facility] [place] [facility] [address] [id number] [place] [address]- 9167 Feb, [facility] [place] [facility] [address] [id number] [place] [address]- 2802 Feb, [facility] [place] [facility] [address] [id number] [place] [address]- 1222 Feb, [facility] [place] [facility] [address] [id number], [place] [address]- 6768 Feb, [facility] [place] [facility] [address] [id number] [place] [address]- 2649 Feb, [facility] [place] [facility] [address] [id number] [place] [address]- 3335 Feb, [facility] [place] [facility] [address] [id number] [place] [address]- 8315 Feb, [facility] [place] [facility] [address] [id number], [place] [address]- 6279 Jan, [facility] [address], [place] [address]- 2284 Jan, [facility] [address], [place] [address]- 1829 Jan, [facility] [address], [place] [address]- 8138 Jan, [facility] [id number] [place] [address] 07956- 8285 Jan, [facility] [address], [place] [address]- 9989 Jan, [facility] [address], [place] [address]- 4225 Jan, [facility] [address], [place] [address]- 9879 Jan, General weakness R53.1 and Dementia with behavioral disturbance, unspecified dementia type F03.91 [facility] [address], [place] [address]- 8921 December, [facility] [id number], [place] [address]- 8631 December, Other chronic pain G89.29 [facility] [address], [place] [address]- 5058 December, [facility] [address], [place] [address]- 8278 December, Unsteady gait R26.81 ; Generalized weakness R53.1 ; Unspecified mental disorder due to known physiological condition F09 and Generalized headaches R51 [facility] [address], [place] [address]- 3670 December, [facility] [address], [place] [address]- 4304 Nov, Anxiety F41.9 [facility] [id number] [place] [address] 37369- 0165 Nov, Mood disorder F39 [facility] [id number] [place] [address] 84430- 9228 Oct, [facility] [id number] [place] [address] 01429- 7488 Oct, Anxiety F41.9 [facility] [id number] [place] [address] 40343- 3546 Oct, Other chronic pain G89.29 [facility] [id number] [place] [address] 28068- 6138 Sep, Other chronic pain G89.29 ; Pain in left knee M25.562 ; Pain in right knee M25.561 and Anxiety F41.9 [facility] [id number] [place] [address] 55624- 8005 Sep, MDD (major depressive disorder), recurrent episode, mild F33.0 ; Degenerative brain disorder G31.9 and Other skilled nursing (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 Z79.899 [facility] [id number] [place] [address] 04873- 7982 Sep, [facility] [id number] [place] [address] 12028- 4335 Sep, [facility] [id number] [place] [address] 53936- 7149 Sep, Mood disorder F39 ; Pain of left leg M79.605 and Pain in right leg M79.604 [facility] [id number] [place] [address] 88678- 8883 Sep, Seizures R56.9 [facility] [id number] [place] [address] 94892- 4343 Sep, [facility] [id number] [place] [address] 22077- 5583 Sep, [facility] [address], [place] [address]- 9325 Sep, [facility] [id number] [place] [address] 97083- 0176 Aug, Bronchitis J40 [facility] [id number] [place] [address] 86937 2546 Aug, Bronchitis J40 and Encounter for drug screening Z02.83 [facility] [id number] [place] [address] 55369- 6306 Aug, [facility] [id number] [place] [address] 38792- 4516 Aug, Seizures R56.9 [facility] [id number] [place] [address] 95182- 4506 Aug, Seizures R56.9 [facility] [id number] [place] [address] 44127 2540 Aug, Major depressive disorder, recurrent, moderate F33.1 and Seizures R56.9 [facility] [id number] [place] [address] 39834- 7016 Aug, [facility] [id number] [place] [address] 11933- 9400 Aug, [facility] [id number] [place] [address] 55070- 1290 Aug, Major depressive disorder, recurrent, moderate F33.1 and Seizures R56.9 [facility] [id number] [place] [address] 66831 2540 Jul, Major depressive disorder, recurrent, moderate F33.1 and Degenerative brain disorder G31.9 [facility] [id number] [place] [address] 09277- 3366 Jul, Seizures R56.9 [facility] [id number] [place] [address] 70934 2546 Apr, [facility] [id number], [place] [address]- 2373 Apr, Major depressive disorder, recurrent, moderate F33.1 ; Anxiety F41.9 and Degenerative brain disorder G31.9 [place] [address], [place] [address]- 7722 Apr, Mood disorder F39 [place] [address], [place] [address]- 8998 Apr, Arthritis M19.90 [place] [address], [place] [address]- 4818 Mar, Arthritis M19.90 ; Degenerative brain disorder G31.9 and Nonintractable generalized idiopathic epilepsy without status epilepticus G40.309 [place] [id number], [place] [address]- 0927 Feb, IMMUNIZATIONS No Known Immunizations SOCIAL HISTORY Never Assessed REASON FOR VISIT Decrease in clonazepam PLAN OF CARE VITAL SIGNS MEDICATIONS Medication [...] Surgical History 27 brain surgeries including shunt, [place] Surgical History neck fusion 09/26, 09/28 Surgical History right hand surgery Hospitalization History surgeries Hospitalization History seizures 12/2015
--- OUTSIDE RECORDS SUMMARY | 2018-07-01 14:19 | XMS REPORT ---
Author Author JENIFER BRAY Organization [facility] Address [address] [place] [address] Care Team Providers Care Manager Talent Acquisition Name Role Phone JENIFER BRAY Unavailable PROBLEMS Type Condition ICD9-CM Code [id number] Code Onset Dates Condition Status SNOMED Code Problem Other chronic pain G89.29 Active 34013563 Problem Unspecified mental disorder due to known physiological condition F09 Active 737373683 Problem Anxiety F41.9 Active 48776449 Problem Mood disorder F39 Active 04951939 Problem Other chronic pain G89.29 Active 20582931 Problem Sleep apnea, unspecified type G47.30 Active 79132195 Problem Dementia with behavioral disturbance, unspecified dementia type F03.91 Active 1052185639407 Problem Unsteady gait R26.81 Active 98847445 Problem Degenerative brain disorder G31.9 Active 58855155 Problem Major depressive disorder, recurrent, moderate F33.1 Active 30600120 ALLERGIES No Information ENCOUNTERS Encounter Location Date Diagnosis [facility] [id number] [place] [address] 47547- 7601 Nov, [facility] [id number] [place] [address] 66088- 4907 Nov, [facility] [id number] [place] [address] 48095- 3665 Nov, [facility] [address] [place] [id number] Oct, Tear of skin of plantar aspect of right foot, initial encounter S91.311A [facility] [id number] [place] [address] 95978- 1888 Oct, [facility] [id number] [place] [address] 43666- 5507 Oct, [facility] [address] [id number] Oct, [facility] [id number][place] [id number] Oct, [facility] [id number] [id number] Sep, [facility] [id number] [id number] Sep, [facility] [id number][place] [id number] Sep, [facility] [id number][place] [id number] Sep, [facility] [address], [place] [address] Sep, [facility] [address], [place] [address] Sep, Other chronic pain G89.29 and Pain in left knee M25.562 [facility] [id number], [place] [address] Sep, [facility] [address] [place] [id number] Sep, Plantar fasciitis of left foot M72.2 and Pain in right knee M25.561 [facility] [id number] [id number] Aug, [facility] [id number], [place] [address] 0815 Aug, [facility] [id number], [place] [address] 4[address] Aug, [facility] [address] [address] Aug, Chronic daily headache R51 [facility] [id number], [place] [address] 39[address] Aug, [facility] [address] [id number] Aug, Edema, unspecified type R60.9 ; Weight gain R63.5 and Sleep apnea, unspecified type G47.[address] [facility] [address] [id number] Jul, Acute pain of left knee M25.562 and Plantar fasciitis of left foot M72.2 [facility] [address]65[address], [place] [address] Jul, [facility] [address] [id number] Jul, Plantar fasciitis of left foot M72.2 and Chronic daily headache R51 [facility] [id number], [place] [id number] Jul, [facility] [id number], [place] [id number] Jun, [facility] [id number], [place] [address] 2546 Jun, [facility] [id number] [place] [id number] Jun, [facility] [id number] [place] [id number] Jun, [facility] [id number] [id number] May, [facility] [id number] [place] [address] [id number] May, [facility] [id number], [place] [address] 2543 May, Stress incontinence of urine N39.3 [facility] [id number] [place] [id number] May, [facility] [id number] May, Encounter for examination for admission to halfway Z02.2 ; Toxoplasmosis B58.9 ; Seizures R56.9 ; Major depressive disorder, recurrent, moderate F33.1 ; Degenerative brain disorder G31.9 and Unsteady gait R26.81 [facility] [id number] [place] [address] 10027- 6481 May, [facility] [id number] [place] [address] 75146- 6422 May, Mood disorder F39 [facility] [id number] [place] [address] 54223- 5300 May, [facility] [id number] [place] [address] 88845- 7533 Apr, [facility] [id number] [place] [address] 22342- 7349 Mar, [facility] [id number] [place] [address] 03598- 3139 Mar, [facility] [id number] [place] [address] 32471- 9558 Mar, [facility] [id number] [place] [address] 82012- 9437 Mar, [facility] [id number] [place] [address] 54926- 1907 Mar, [facility] [id number] [place] [address] 09981- 5636 Mar, Stress incontinence of urine N39.3 [facility] [id number] [place] [address] [id number] Mar, [facility] [id number] [place] [address] 80990- 5591 Feb, [facility] [id number] [place] [address] 02686- 7001 Feb, [facility] [id number] [place] [address] 67560- 1796 Feb, [facility] [id number] [place] [address]- 7939 Feb, [facility] [address] [facility] [id number] [place] [address]- 8015 Feb, [facility] [address] [facility] [id number] [place] [address]- 2861 Feb, [facility] [address] [place] [address]- 0365 Feb, [facility] [address] [facility] [id number] [place] [address]- 2802 Jan, [facility] [address] [place] [address]- 0677 Jan, [facility] [id number] [place] [address]- 4927 Jan, [facility] [address] [place] [address]- 7441 Jan, [facility] [address], [place] [address]- 0414 Jan, [facility] [address], [place] [address] 8028 Jan, [facility] [address], [place] [address]- 3319 Jan, [facility] [address], [place] [address]- 4[address] Jan, General weakness R53.1 and Dementia with behavioral disturbance, unspecified dementia type F03.91 [facility] [address] [facility] [id number], [place] [address] December, [facility] [address], [place] [address]- 3507 December, Other chronic pain G89.29 [facility] [address], [place] [address]- 3858 December, [facility] [address] [place] [address] 59227- 0793 December, Unsteady gait R26.81 ; Generalized weakness R53.1 ; Unspecified mental disorder due to known physiological condition F09 and Generalized headaches R51 [facility] [address] [place] [address] 66444- 0332 December, [facility] [id number] [place] [address] 95540- 2475 Nov, Anxiety F41.9 [facility] [id number] [place] [address] 12813- 5877 Nov, Mood disorder F39 [facility] [id number] [place] [address] 29290- 2481 Oct, [facility] [id number] [place] [address] 75390- 1855 Oct, Anxiety F41.9 [facility] [facility] [id number] [place] [address] 93072- 9161 Oct, Other chronic pain G89.29 [facility] [id number] [place] [address] 30048- 1373 Sep, Other chronic pain G89.29 ; Pain in left knee M25.562 ; Pain in right knee M25.561 and Anxiety F41.9 [facility] [id number] [place] [address] 91212- 1997 Sep, MDD (major depressive disorder), recurrent episode, mild F33.0 ; Degenerative brain disorder G31.9 and Other prison (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 Z79.899 [place] [facility] [id number] [place] [address] 16333- 7102 Sep, [facility] [facility] [id number] [place] [address] 97156- 0541 Sep, [facility] [id number] [place] [address] 34104- 5330 Sep, Mood disorder F39 ; Pain of left leg M79.605 and Pain in right leg M79.604 [facility] [id number] [place] [address] 23043- 2976 Sep, Seizures R56.9 [facility] [id number] [place] [address] 33746- 5316 Sep, [facility] [address] 41662- 3322 Sep, [facility] [id number] [place] [address] 91946- 6704 Sep, [facility] [id number] [place] [address] 37198- 4988 Aug, Bronchitis J40 [facility] [address] 01281- 2234 Aug, Bronchitis J40 and Encounter for drug screening Z02.83 [facility] [id number] [place] [address] 36589- 3208 Aug, [facility] [id number] [place] [address] 92890- 8225 Aug, Seizures R56.9 [facility] [id number] [place] [address] 00653- 4914 Aug, Seizures R56.9 [facility] [id number] [place] [address] 43266- 8601 Aug, Major depressive disorder, recurrent, moderate F33.1 and Seizures R56.9 [facility] [id number] [place] [address] 03641- 7561 Aug, [facility] [id number] [place] [address] 61491- 2490 Aug, [facility] [id number] [place] [address] 71374- 7221 Aug, Major depressive disorder, recurrent, moderate F33.1 and Seizures R56.9 [facility] [address] [place] [address] 16085- 0803 Jul, Major depressive disorder, recurrent, moderate F33.1 and Degenerative brain disorder G31.9 [place] [address] [place] [address] 74109- 8415 Jul, Seizures R56.9 [place] [id number] [place] [address] 77444- 7219 Apr, [facility] [facility] [id number] [place] [address] 15576- 4604 Apr, Major depressive disorder, recurrent, moderate F33.1 ; Anxiety F41.9 and Degenerative brain disorder G31.9 [place] [id number] [place] [address] 59630- 0761 Apr, Mood disorder F39 [place] [facility] [id number] [place] [address] 58432- 4546 Apr, Arthritis M19.90 [place] [facility] [id number] [place] [address] 56832- 7025 Mar, Arthritis M19.90 ; Degenerative brain disorder G31.9 and Nonintractable generalized idiopathic epilepsy without status epilepticus G40.309 [place] [id number] [place] [address] 33551- 9644 Feb, IMMUNIZATIONS No Known Immunizations SOCIAL HISTORY [...] Surgical History 27 brain surgeries including shunt, [place] Surgical History neck fusion 09/26, 09/28 Surgical History right hand surgery Hospitalization History surgeries Hospitalization History seizures 12/2015
--- OUTSIDE RECORDS SUMMARY | 2018-07-01 14:19 | XMS REPORT ---
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 Name Role Phone JENIFER BRAY Unavailable PROBLEMS Type Condition ICD9-CM Code [id number] Code Onset Dates Condition Status SNOMED Code Problem Other chronic pain G89.29 Active 85972351 Problem Unspecified mental disorder due to known physiological condition F09 Active 139607983 Problem Anxiety F41.9 Active 10152281 Problem Mood disorder F39 Active 05650937 Problem Other chronic pain G89.29 Active 76892225 Problem Sleep apnea, unspecified type G47.30 Active 83597075 Problem Dementia with behavioral disturbance, unspecified dementia type F03.91 Active [id number] Problem Unsteady gait R26.81 Active 52239618 Problem Degenerative brain disorder G31.9 Active 74883776 Problem Major depressive disorder, recurrent, moderate F33.1 Active 16473004 ALLERGIES No Information ENCOUNTERS Encounter Location Date Diagnosis [facility] [address] [facility] [id number] [address] Oct, [facility] [address] [id number] [place] [id number] Oct, [facility] [address] [id number] [place] [id number] Oct, [facility] [address] [id number] [place] [id number] Sep, [facility] [address] [id number] [place] [id number] Sep, [facility] [address] [id number] [place] [id number] Sep, [facility] [address] [id number] [place] [id number] Sep, [facility] [address] [place] [address] Sep, [facility] [id number] [place] [address]89335- [address]120 Sep, Other chronic pain G89.29 and Pain in left knee M25.562 [facility] [address] [place] [address] 16345- 7596 Sep, [facility] [address] [place] [id number] Sep, Plantar fasciitis of left foot M72.2 and Pain in right knee M25.561 [facility] [id number] [place] [id number] Aug, [facility] [id number] [place] [address] 03789- 1428 Aug, [facility] [id number] [place] [address] 60825- 4006 Aug, [facility] [id number] [place] [address] 67138- 4827 Aug, Chronic daily headache R51 [facility] [id number] [place] [address] 39740- 4327 Aug, [facility] [address] [place] [id number] Aug, Edema, unspecified type R60.9 ; Weight gain R63.5 and Sleep apnea, unspecified type G47.30 [facility] [address] [place] [id number] Jul, Acute pain of left knee M25.562 and Plantar fasciitis of left foot M72.2 [facility] [address] [place] [address] 27573- 4056 Jul, [facility] [address] [place] [id number] Jul, Plantar fasciitis of left foot M72.2 and Chronic daily headache R51 [facility] [address] [id number] [place] [id number] Jul, [facility] [id number] [place] [address] Jun, [facility] [address] [address] Jun, [facility] [id number] [place] [id number] Jun, [facility] [id number] [place] [id number] Jun, [facility] [id number] [place] [id number] May, [facility] [id number] [place] [id number] May, [facility] [address] [address] May, Stress incontinence of urine N39.3 [facility] [id number] [place] [id number] May, [facility] [address] [place] [id number] May, Encounter for examination for admission to half-way Z02.2 ; Toxoplasmosis B58.9 ; Seizures R56.9 ; Major depressive disorder, recurrent, moderate F33.1 ; Degenerative brain disorder G31.9 and Unsteady gait R26.81 [facility] [address] [id number] [address] May, [facility] [address] [id number] [address] May, Mood disorder F39 [facility] [address] [id number] May, [facility] [address] [id number] [address] Apr, [facility] [place] [facility] [address] [id number] [place] [address] Mar, [facility] [place] [facility] [address] [id number] [place] [address] Mar, [facility] [place] [facility] [address] [id number] [place] [address] Mar, [facility] [place] [facility] [address] [id number] [place] [address] 7899 Mar, [facility] [place] [facility] [address] [id number] [place] [address] Mar, [facility] [place] [facility] [address] [id number] [place] [address] Mar, Stress incontinence of urine N39.3 [facility] [address] [id number] [place] [id number] Mar, [facility] [place] [facility] [address] [id number] [place] [address] Feb, [facility] [place] [facility] [address] [id number] [place] [address] 0832 Feb, [facility] [place] [facility] [address] [id number] [place] [address] 4847 Feb, [facility] [place] [facility] [address] [id number] [place] [address] 75[address] Feb, [facility] [place] [facility] [address] [id number] [place] [address]- 0839 Feb, [facility] [place] [facility] [address] [id number] [place] [address] 8269 Feb, [facility] [place] [facility] [address] [id number] [place] [address]- 6096 Feb, [facility] [place] [facility] [address] [id number] [place]- [address] Jan, [facility] [place] [facility] [address] [id number] [place] [address] Jan, [facility] [address] [address] Jan, [facility] [id number] [place] [address] 47559- 1547 Jan, [facility] [address] [address] Jan, [facility] [id number] [place] [address] 85522- 2436 Jan, [facility] [address] [place] [address] 91630- 3070 Jan, [facility] [id number] [place] [address] 60957- 5388 Jan, General weakness R53.1 and Dementia with behavioral disturbance, unspecified dementia type F03.91 [facility] [address] [place] [address] 02883- 7453 December, [facility] [address] [address] 9767 December, Other chronic pain G89.29 [facility] [id number] [place] [address] 87674- 0930 December, [facility] [address] [address] December, Unsteady gait R26.81 ; Generalized weakness R53.1 ; Unspecified mental disorder due to known physiological condition F09 and Generalized headaches R51 [facility] [address] [address] December, [facility] [id number] [place] [address] 95600- 7875 Nov, Anxiety F41.9 [facility] [address] [address] 0[address] Nov, Mood disorder F39 [place] [address] [address] Oct, [facility] [id number] [place] [address] 46580- 3296 Oct, Anxiety F41.9 [facility] [address] [place] [address] 80021 2543 Oct, Other chronic pain G89.29 [facility] [id number] [place] [address] 51926- 6441 Sep, Other chronic pain G89.29 ; Pain in left knee M25.562 ; Pain in right knee M25.561 and Anxiety F41.9 [facility] [id number] [place] [address] 45904- 2150 Sep, MDD (major depressive disorder), recurrent episode, mild F33.0 ; Degenerative brain disorder G31.9 and Other mcfp (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 Z79.899 [facility] [address] [place] [address] 63960- 2089 Sep, [facility] [id number] [place] [address] 64662- 0077 Sep, [facility] [id number] [place] [address] 82254- 7378 Sep, Mood disorder F39 ; Pain of left leg M79.605 and Pain in right leg M79.604 [facility] [id number] [place] [address] 01877- 7484 14 Sep, 2016 Seizures R56.9 [facility] [id number] [place] [address] 94406- 8176 Sep, [facility] [id number] [place] [address] 48665- 7248 Sep, [facility] [id number] [place] [address] 88879- 5339 Sep, [facility] [id number] [place] [address] 48058- 9783 Aug, Bronchitis J40 [facility] [address] [address]- [address]486 Aug, Bronchitis J40 and Encounter for drug screening Z02.83 [facility] [id number] [place] [address] 94660- 0666 Aug, [facility] [id number] [place] [address] 70078- 7372 Aug, Seizures R56.9 [facility] [id number] [place] [address] 22355- 3187 Aug, Seizures R56.9 [facility] [id number] [place] [address] 61801- 4860 Aug, Major depressive disorder, recurrent, moderate F33.1 and Seizures R56.9 [facility] [id number] [place] [address] 31548- 2305 Aug, [facility] [id number] [place] [address] 52396- 5964 Aug, [facility] [id number] [place] [address] 63209- 2151 Aug, Major depressive disorder, recurrent, moderate F33.1 and Seizures R56.9 [facility] [id number] [place] [address] 25958- 3412 Jul, Major depressive disorder, recurrent, moderate F33.1 and Degenerative brain disorder G31.9 [facility] [id number] [place] [address] 24758- 8696 Jul, Seizures R56.9 [facility] [id number] [place] [address] 98254- 3096 Apr, [facility] [id number] [place] [address] 88981- 6420 Apr, Major depressive disorder, recurrent, moderate F33.1 ; Anxiety F41.9 and Degenerative brain disorder G31.9 [address] [id number] [address]- 6769 Apr, Mood disorder F39 [facility] [address] [address]- 6866 Apr, Arthritis M19.90 [address] [place] [id number] [place] [address] 67806- 7852 Mar, Arthritis M19.90 ; Degenerative brain disorder G31.9 and Nonintractable generalized idiopathic epilepsy without status epilepticus G40.309 [place] [address] [address]- 2908 Feb, IMMUNIZATIONS No Known Immunizations SOCIAL HISTORY Never Assessed REASON FOR VISIT FL placement PLAN OF CARE VITAL SIGNS MEDICATIONS Unknown Medications RESULTS No Results PROCEDURES No Known procedures INSTRUCTIONS MEDICATIONS ADMINISTERED No Known Medications MEDICAL (GENERAL) HISTORY Type Description Date Medical History Toxoplasmosis Medical History migraine Medical History dementia Medical History depression Medical History alzheimers disease Medical History epilepsy Medical History COPD Surgical History cholecystectomy Surgical History appendectomy Surgical History 27 brain surgeries including shunt, [place] Surgical History neck fusion 09/26, 09/28 Surgical History right hand surgery Hospitalization History surgeries Hospitalization History seizures 12/2015
--- OUTSIDE RECORDS SUMMARY | 2018-07-01 14:20 | XMS REPORT ---
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 Name Role Phone ESTEPHANIA IVAN Unavailable PROBLEMS Type Condition ICD9-CM Code THY45-ST Code Onset Dates Condition Status SNOMED Code Problem Unspecified mental disorder due to known physiological condition F09 Active 843059280 Problem Major depressive disorder, recurrent, moderate F33.1 Active 05649358 Problem Dementia with behavioral disturbance, unspecified dementia type F03.91 Active 3131966497007 Problem Mood disorder F39 Active 56700681 Problem Other chronic pain G89.29 Active 75215008 Problem Anxiety F41.9 Active 42183360 Problem Unsteady gait R26.81 Active 50558327 Problem History of brain shunt Z98.2 Active 004132190 Problem PTSD (post-traumatic stress disorder) F43.10 Active 95465965 Problem Sleep apnea, unspecified type G47.30 Active 76788481 Problem Degenerative brain disorder G31.9 Active 07709586 Problem Depressive disorder, not elsewhere classified F32.9 Active 88734449 Problem Other chronic pain G89.29 Active 66922333 ALLERGIES No Information ENCOUNTERS Encounter Location Date Diagnosis [facility] [address] [facility] [id number] [address] Feb, [facility] [address] [facility] [id number], [place] [address] Feb, [facility] [address] [place] [id number] Jan, Dementia with behavioral disturbance, unspecified dementia type F03.91 ; Other chronic pain G89.29 and Plantar fasciitis M72.2 [facility] [address] [place] [id number] Jan, Daily headache R51 ; History of brain shunt Z98.2 ; Plantar fasciitis of left foot M72.2 ; Pain in right knee M25.561 and Pain in left knee M25.562 [facility] [address], [place] [address] Jan, [facility] [address], [place] [address] 07 Jan, 2018 Pain in right knee M25.561 [facility] [id number] [place] [address]41- 1571 Jan, [facility] [id number] [place] [address] 21640- 2251 Jan, [facility] [id number] [place] [address] 93500- 6798 Jan, [facility] [id number] [place] [address] 86867- 6853 December, Other chronic pain G89.29 [facility] [address] [place] [id number] December, Pain in left knee M25.562 ; Pain in right leg M79.604 ; Other chronic pain G89.29 ; Localized edema R60.0 and PTSD (post-traumatic stress disorder) F43.10 [facility] [address], [place] [address] December, [facility] [address], [place] [address] December, PTSD (post-traumatic stress disorder) F43.10 [facility] [address], [place] [address] December, [facility] [address] [id number] [address] December, [facility] [address], [place] [address] December, Depressive disorder, not elsewhere classified F32.9 and Cognitive change R41.89 [facility] [address], [place] [address] 30 Nov, 2017 Major depressive disorder, recurrent, moderate F33.1 [facility] [id number] [place] [address] 14061- 6814 Nov, [facility] [id number] [place] [address] 92078- 2953 Nov, [facility] [id number] [place] [address] 28411- 2988 Nov, [facility] [id number] [place] [address] 58094- 3111 Nov, [facility] [id number] [place] [address] 83506- 0467 Nov, Mood disorder F39 [facility] [id number] [place] [address] 28212- 4219 Nov, Depressive disorder, not elsewhere classified F32.9 and Cognitive change R41.89 [facility] [id number] [place] [address] 81335- 4028 Nov, [facility] [id number] [place] [address] 34015- 8037 Nov, [facility] [address] [id number] Oct, Tear of skin of plantar aspect of right foot, initial encounter S91.311A [facility] [address], [place] [address] Oct, [facility] [address], [place] [address] 14 Oct, 2017 [facility] [id number] [place] [address] [id number] 12 Oct, 2017 [facility] [id number] [place] [address] [id number] 06 Oct, 2017 [facility] [id number] [place] [address] [id number] Sep, [facility] [id number] [id number] Sep, [facility] [id number] [place] [id number] Sep, [facility] [id number] [id number] Sep, [facility] [id number] [place] [address] 63806- 9673 Sep, [facility] [id number] [place] [address] 23446- 9146 Sep, Other chronic pain G89.29 and Pain in left knee M25.562 [facility] [address] Sep, [facility] [address] [place] [id number] Sep, Plantar fasciitis of left foot M72.2 and Pain in right knee M25.561 [facility] [id number] [place] [address] [id number] Aug, [facility] [address] [address] Aug, [facility] [address] [id number], [place] [address] Aug, [facility] [address] [address] Aug, Chronic daily headache R51 [facility] [address] Aug, [facility] [address] [place] [id number] Aug, Edema, unspecified type R60.9 ; Weight gain R63.5 and Sleep apnea, unspecified type G47.30 [facility] [address] [place] [id number] Jul, Acute pain of left knee M25.562 and Plantar fasciitis of left foot M72.2 [facility] [address] [id number], [place] [address] Jul, [facility] [address] [place] [id number] Jul, Plantar fasciitis of left foot M72.2 and Chronic daily headache R51 [facility] [address] [id number] [id number] Jul, [facility] [id number] [place] [address] [id number] Jun, [facility] [address], [place] [address] 2546 Jun, [facility] [address] [id number] [id number] Jun, [facility] [id number] [place] [address] [id number] Jun, [facility] [id number] [place] [address] [id number] May, [facility] [id number] [place] [id number] May, [facility] [address] [id number], [place] [address] May, Stress incontinence of urine N39.3 [facility] [id number] [place] [address] [id number] May, [facility] [address] [id number] May, Encounter for examination for admission to skilled nursing Z02.2 ; Toxoplasmosis B58.9 ; Seizures R56.9 ; Major depressive disorder, recurrent, moderate F33.1 ; Degenerative brain disorder G31.9 and Unsteady gait R26.81 [facility] [address] [id number], [place] [address] May, [facility] [place] [facility] [address] [id number] [place] [address] 8698 May, Mood disorder F39 [facility] [place] [facility] [address] [id number] [place] [address] May, [facility] [place] [facility] [address] [id number] [place] [address]- 7584 Apr, [facility] [place] [facility] [id number] [place] [address], [place] [address]- [address] Mar, [facility] [place] [facility] [address] [id number] [place] [address]- 1545 Mar, [facility] [place] [facility] [id number] [place] [address], [place] [address]- [address]607 Mar, [facility] [place] [facility] [address] [id number] [place] [address]- 3780 Mar, [facility] [place] [facility] [address] [id number] [place] [address]- 7279 Mar, [facility] [place] [facility] [address] [id number] [place] [address]- 8455 Mar, Stress incontinence of urine N39.3 [facility] [address] [id number] [id number] Mar, [facility] [place] [facility] [address] [id number], [place] [address] Feb, [facility] [place] [facility] [address] [id number], [place] [address] 5814 Feb, [facility] [place] [facility] [address] [id number], [place] [address]- 4576 Feb, [facility] [place] [facility] [address] [id number], [place] [address] 8156 Feb, [facility] [place] [facility] [address] [id number] [place] [address]- 9455 Feb, [facility] [place] [facility] [address], [place] [address] 7387 Feb, [facility] [address], [place] [address] 1588 Feb, [facility] [address], [place] [address]- 9965 Jan, [facility] [address], [place] [address]- 5424 Jan, [facility] [address], [place] [address] 1613 Jan, [facility] [address], [place] [address]- 1879 Jan, [facility] [address], [place] [address]- 6542 Jan, [facility] [address], [place] [address]- 6561 Jan, [facility] [address], [place] [address]- 0032 Jan, [facility] [address], [place] [address]- 3942 Jan, General weakness R53.1 and Dementia with behavioral disturbance, unspecified dementia type F03.91 [facility] [address], [place] [address]- 96[address] December, [facility] [address], [place] [address]- 2485 December, Other chronic pain G89.29 [facility] [address], [place] [address]- 1145 December, [facility] [address], [place] [address]- 7796 December, Unsteady gait R26.81 ; Generalized weakness R53.1 ; Unspecified mental disorder due to known physiological condition F09 and Generalized headaches R51 [facility] [id number] [place] [address] 18648- 2492 December, [facility] [id number] [place] [address] 71196- 7009 Nov, Anxiety F41.9 [facility] [id number] [place] [address] 93079- 7202 Nov, Mood disorder F39 [facility] [address] [address]- [address] Oct, [facility] [id number] [place] [address] 42516- 4237 Oct, Anxiety F41.9 [facility] [id number] [place] [address] 51657- 1746 Oct, Other chronic pain G89.29 [facility] [address] [address]- 5928 Sep, Other chronic pain G89.29 ; Pain in left knee M25.562 ; Pain in right knee M25.561 and Anxiety F41.9 [facility] [id number] [place] [address] 34780- 1119 Sep, MDD (major depressive disorder), recurrent episode, mild F33.0 ; Degenerative brain disorder G31.9 and 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 [facility] [id number] [place] [address] 67907- 5338 Sep, [facility] [id number] [place] [address] 04094- 7088 Sep, [facility] [id number] [place] [address] 80862- 6561 Sep, Mood disorder F39 ; Pain of left leg M79.605 and Pain in right leg M79.604 [facility] [id number] [place] [address] 32630- 8331 Sep, Seizures R56.9 [facility] [id number] [place] [address] 09380- 7866 08 Sep, 2016 [facility] [id number] [place] [address] 26115- 8666 07 Sep, 2016 [facility] [id number] [place] [address] 48618- 7076 Sep, [facility] [id number] [place] [address] 64642- 2196 Aug, Bronchitis J40 [facility] [id number] [place] [address] 74947- 8296 Aug, Bronchitis J40 and Encounter for drug screening Z02.83 [facility] [id number] [place] [address] 33425- 8346 Aug, [facility] [id number] [place] [address] 10211 2546 Aug, Seizures R56.9 [facility] [id number] [place] [address] 88243 2546 Aug, Seizures R56.9 [facility] [id number] [place] [address] 00434 2546 Aug, Major depressive disorder, recurrent, moderate F33.1 and Seizures R56.9 [facility] [id number] [place] [address] 93067 2546 Aug, [facility] [id number] [place] [address] 34097 2546 Aug, [facility] [id number] [place] [address] 84654 2546 Aug, Major depressive disorder, recurrent, moderate F33.1 and Seizures R56.9 [facility] [id number] [place] [address] 65276 2546 Jul, Major depressive disorder, recurrent, moderate F33.1 and Degenerative brain disorder G31.9 [facility] [id number] [address]- 5921 Jul, Seizures R56.9 [facility] [address], [place] [address]- 0258 Apr, [facility] [address], [place] [address]- 2510 Apr, Major depressive disorder, recurrent, moderate F33.1 ; Anxiety F41.9 and Degenerative brain disorder G31.9 [facility] [facility] [address], [place] [address]- 0371 Apr, Mood disorder F39 [facility] [id number] [place] [address] 21928- 9327 Apr, Arthritis M19.90 [place] [id number] [place] [address] 99466- 4252 Mar, Arthritis M19.90 ; Degenerative brain disorder G31.9 and Nonintractable generalized idiopathic epilepsy without status epilepticus G40.309 [facility] [address], [place] [address]- 5920 Feb, IMMUNIZATIONS No Known Immunizations SOCIAL HISTORY Never Assessed REASON FOR VISIT Start Lasix routinely PLAN OF CARE VITAL SIGNS MEDICATIONS Medication Instructions Dosage Frequency Start Date End Date Duration Status Furosemide 40 mg Orally Once a day in AM 1 tablet Sep, 30 day (s) Active Potassium Chloride ER 20 meq Orally Once a day 1 tablet with food 24h Sep, Jan, 30 day(s) Active RESULTS No Results PROCEDURES No Known procedures INSTRUCTIONS MEDICATIONS ADMINISTERED No Known Medications MEDICAL (GENERAL) HISTORY Type Description Date Medical History Toxoplasmosis Medical History migraine Medical History dementia Medical History depression Medical History alzheimers disease Medical History epilepsy Medical History COPD Surgical History cholecystectomy Surgical History appendectomy Surgical History 27 brain surgeries including shunt, [place] Surgical History neck fusion 09/26, 09/28 Surgical History right hand surgery Hospitalization History surgeries Hospitalization History seizures 12/2015
--- OUTSIDE RECORDS SUMMARY | 2018-07-01 14:20 | XMS REPORT ---
Author Author ESTEPHANIA IVAN Organization [facility] Address [address] [place] [address] Care Team Providers Care Financial Reporting Advisor Name Role Phone ESTEPHANIA IVAN Unavailable PROBLEMS Type Condition ICD9-CM Code PWF23-CV Code Onset Dates Condition Status SNOMED Code Problem Unspecified mental disorder due to known physiological condition F09 Active 349438388 Problem Major depressive disorder, recurrent, moderate F33.1 Active 74771659 Problem Dementia with behavioral disturbance, unspecified dementia type F03.91 Active 2740802212592 Problem Mood disorder F39 Active 06181416 Problem Other chronic pain G89.29 Active 28319526 Problem Anxiety F41.9 Active 46358638 Problem Unsteady gait R26.81 Active 69704673 Problem History of brain shunt Z98.2 Active 199494100 Problem PTSD (post-traumatic stress disorder) F43.10 Active 50864989 Problem Sleep apnea, unspecified type G47.30 Active 74909595 Problem Degenerative brain disorder G31.9 Active 50085807 Problem Depressive disorder, not elsewhere classified F32.9 Active 99805374 Problem Other chronic pain G89.29 Active 88705909 ALLERGIES No Information ENCOUNTERS Encounter Location Date Diagnosis [facility] [address] [facility] [id number] [address] Feb, [facility] [address] [facility] [id number], [place] [address] Feb, [facility] [address] [place] [id number] Jan, Dementia with behavioral disturbance, unspecified dementia type F03.91 ; Other chronic pain G89.29 and Plantar fasciitis M72.2 [facility] [address] [id number] Jan, Daily headache R51 ; History of brain shunt Z98.2 ; Plantar fasciitis of left foot M72.2 ; Pain in right knee M25.561 and Pain in left knee M25.562 [facility] [address], [place] [address] Jan, [facility] [address], [place] [address] 07 Jan, 2018 Pain in right knee M25.561 [facility] [id number] [place] [address] 12719- 5308 Jan, [facility] [id number] [place] [address] 52235- 2208 Jan, [facility] [id number] [place] [address] 04202- 7631 Jan, [facility] [address] [place] [address] 83840- 5296 December, Other chronic pain G89.29 [facility] [address] [id number] December, Pain in left knee M25.562 ; Pain in right leg M79.604 ; Other chronic pain G89.29 ; Localized edema R60.0 and PTSD (post-traumatic stress disorder) F43.10 [facility] [address], [place] [address] December, [facility] [address], [place] [address] 9[address] December, PTSD (post-traumatic stress disorder) F43.10 [facility] [address], [place] [address] December, [facility] [id number], [place] [address] December, [facility] [address], [place] [address] December, Depressive disorder, not elsewhere classified F32.9 and Cognitive change R41.89 [facility] [address], [place] [address] 30 Nov, 2017 Major depressive disorder, recurrent, moderate F33.1 [facility] [address] [place] [address] 80347- 6903 Nov, [facility] [id number] [place] [address] 82589- 0838 Nov, [facility] [id number] [place] [address] 89177- 7822 Nov, [facility] [id number] [place] [address] 91135- 6807 Nov, [facility] [id number] [place] [address] 90937- 4025 Nov, Mood disorder F39 [facility] [id number] [place] [address] 64236- 2116 Nov, Depressive disorder, not elsewhere classified F32.9 and Cognitive change R41.89 [facility] [id number] [place] [address] 72488- 2629 Nov, [facility] [id number] [place] [address] 54[address] 9670 Nov, [facility] [address] [id number] Oct, Tear of skin of plantar aspect of right foot, initial encounter S91.311A [facility] [address], [place] [address] Oct, [facility] [address], [place] [address] 14 Oct, 2017 [facility] [id number] [place] [address] [id number] 12 Oct, 2017 [facility] [id number] [place] [address] [id number] 06 Oct, 2017 [facility] [id number] [place] [address] [phone] Sep, [facility] [id number] [id number] Sep, [facility] [id number] [place] [address] [phone] Sep, [facility] [id number] [id number] Sep, [facility] [id number] [place] [address] 47026- 8164 Sep, [facility] [address] [place] [address] 30502- 4569 Sep, Other chronic pain G89.29 and Pain in left knee M25.562 [facility] [address] [address] Sep, [facility] [address] [place] [address] Sep, Plantar fasciitis of left foot M72.2 and Pain in right knee M25.561 [facility] [id number] [place] [id number] Aug, [facility] [address] [address] Aug, [facility] [id number], [place] [address] Aug, [facility] [address] [address] Aug, Chronic daily headache R51 [facility] [address] [address] Aug, [facility] [address] [place] [id number] Aug, Edema, unspecified type R60.9 ; Weight gain R63.5 and Sleep apnea, unspecified type G47.30 [facility] [address] [place] [id number] Jul, Acute pain of left knee M25.562 and Plantar fasciitis of left foot M72.2 [facility] [id number], [place] [address] Jul, [facility] [address] [place] [id number] Jul, Plantar fasciitis of left foot M72.2 and Chronic daily headache R51 [facility] [address] [id number] [id number] Jul, [facility] [id number] [place] [address] [phone] Jun, [facility] [address], [place] [address] 2546 Jun, [facility] [address] [id number] [id number] Jun, [facility] [id number] [place] [address] [phone] Jun, [facility] [id number] [place] [address] [phone] May, [facility] [id number] [place] [address] [phone] May, [facility] [address] [id number], [place] [address] May, Stress incontinence of urine N39.3 [facility] [id number] [place] [address] [phone] May, [facility] [address] [id number] May, Encounter for [facility] Z02.2 ; Toxoplasmosis B58.9 ; Seizures R56.9 ; Major depressive disorder, recurrent, moderate F33.1 ; Degenerative brain disorder G31.9 and Unsteady gait R26.81 [facility] [address] [id number], [place] [address] May, [facility] [place] [facility] [address] [id number] [place] [address]- 0641 May, Mood disorder F39 [facility] [place] [facility] [address] [id number] [place] [address]- 1441 May, [facility] [place] [facility] [address] [id number] [place] [address]- 5517 Apr, [facility] [place] [facility] [id number] [place] [address], [place] [address]- 2946 Mar, [facility] [place] [facility] [address] [id number] [place] [address]- 0115 Mar, [facility] [place] [facility] [id number] [place] [address], [place] [address]- 2586 Mar, [facility] [place] [facility] [address] [id number] [place] [address]- 3027 Mar, [facility] [place] [facility] [address] [id number] [place] [address]- 0018 Mar, [facility] [place] [facility] [address] [id number] [place] [address]- 7144 Mar, Stress incontinence of urine N39.3 [facility] [address] [id number] [id number] Mar, [facility] [place] [facility] [address] [id number], [place] [address] 3573 Feb, [facility] [place] [facility] [address] [id number], [place] [address]- 5488 Feb, [facility] [place] [facility] [address] [id number], [place] [address] 6853 Feb, [facility] [place] [facility] [address] [id number], [place] [address]- 4063 Feb, [facility] [place] [facility] [address] [id number] [place] [address]- 2536 Feb, [facility] [place] [facility] [address], [place] [address] 2630 Feb, [facility] [address], [place] [address] 4602 Feb, [facility] [address], [place] [address]- 0909 Jan, [facility] [address], [place] [address]- 5118 Jan, [facility] [address], [place] [address]- 7758 Jan, [facility] [address], [place] [address]- 5765 Jan, [facility] [address], [place] [address]- 3875 Jan, [facility] [address], [place] [address]- 7062 Jan, [facility] [address], [place] [address]- 2549 Jan, [facility] [address], [place] [address]- 3724 Jan, General weakness R53.1 and Dementia with behavioral disturbance, unspecified dementia type F03.91 [facility] [address], [place] [address]- 3260 December, [facility] [address], [place] [address]- 6592 December, Other chronic pain G89.29 [facility] [address], [place] [address]- 4061 December, [facility] [address], [place] [address]- 7343 December, Unsteady gait R26.81 ; Generalized weakness R53.1 ; Unspecified mental disorder due to known physiological condition F09 and Generalized headaches R51 [facility] [id number] [place] [address] 12526- 8022 December, [facility] [id number] [place] [address] 88503- 2673 Nov, Anxiety F41.9 [facility] [id number] [place] [address] 69352- 9414 Nov, Mood disorder F39 [facility] [address] [address]- 5917 Oct, [facility] [id number] [place] [address] 63300- 4691 Oct, Anxiety F41.9 [facility] [id number] [place] [address] 84299- 8687 Oct, Other chronic pain G89.29 [facility] [address] [address]- 1368 Sep, Other chronic pain G89.29 ; Pain in left knee M25.562 ; Pain in right knee M25.561 and Anxiety F41.9 [facility] [id number] [place] [address] 93139- 5029 Sep, MDD (major depressive disorder), recurrent episode, mild F33.0 ; Degenerative brain disorder G31.9 and 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 [facility] [id number] [place] [address] 33394- 8998 Sep, [facility] [id number] [place] [address] 32084- 7227 Sep, [facility] [id number] [place] [address] 53144- 1339 Sep, Mood disorder F39 ; Pain of left leg M79.605 and Pain in right leg M79.604 [facility] [id number] [place] [address] 12609- 2090 Sep, Seizures R56.9 [facility] [id number] [place] [address] 15583- 2636 08 Sep, 2016 [facility] [id number] [place] [address] 04918- 2776 07 Sep, 2016 [facility] [id number] [place] [address] 73343- 9716 Sep, [facility] [id number] [place] [address] 11465- 8806 Aug, Bronchitis J40 [facility] [id number] [place] [address] 04587- 9336 Aug, Bronchitis J40 and Encounter for drug screening Z02.83 [facility] [id number] [place] [address] 15537- 1066 Aug, [facility] [id number] [place] [address] 84469 2546 Aug, Seizures R56.9 [facility] [id number] [place] [address] 18414 2546 Aug, Seizures R56.9 [facility] [id number] [place] [address] 91172 2546 Aug, Major depressive disorder, recurrent, moderate F33.1 and Seizures R56.9 [facility] [address] [place] [address] 98483 2546 Aug, [facility] [id number] [place] [address] 47233 2546 Aug, [facility] [id number] [place] [address] 12171 2546 Aug, Major depressive disorder, recurrent, moderate F33.1 and Seizures R56.9 [facility] [address] [place] [address] 10222 2546 Jul, Major depressive disorder, recurrent, moderate F33.1 and Degenerative brain disorder G31.9 [facility] [address], [place] [address]- 6117 Jul, Seizures R56.9 [facility] [id number] [place] [address] 35306- 7644 Apr, [facility] [id number] [place] [address] 41370- 9712 Apr, Major depressive disorder, recurrent, moderate F33.1 ; Anxiety F41.9 and Degenerative brain disorder G31.9 [facility] [id number] [place] [address] 27456- 2840 Apr, Mood disorder F39 [facility] [id number] [place] [address] 22866- 3020 Apr, Arthritis M19.90 [facility] [id number] [place] [address] 30027- 0480 Mar, Arthritis M19.90 ; Degenerative brain disorder G31.9 and Nonintractable generalized idiopathic epilepsy without status epilepticus G40.309 [facility] [id number] [place] [address] 48695- 5832 Feb, IMMUNIZATIONS No Known Immunizations SOCIAL HISTORY Never Assessed REASON FOR VISIT Med list update PLAN OF CARE VITAL SIGNS MEDICATIONS Medication Instructions Dosage Frequency Start Date End Date Duration Status ProAir HFA 108 (90 Base) MCG/ACT Inhalation every 4 hrs 2 puffs as needed for cough or short of breath 4h 30 Active Lexapro 20 mg Orally Once a day 1 tablet 24h Active Furosemide 40 mg Orally Once a day in AM 1 tablet Sep, 30 day (s) Active Zyrtec Allergy 10 mg Orally Once a day 1 tablet as needed 24h May, 30 day(s) Active Ondansetron 4 MG Orally every 8 hrs PRN 1 tablet on the tongue and allow to dissolve Aug, Active Venlafaxine HCl ER 225 MG 1 tablet with food Once a day Orally 30 day(s) 30 Active Clonazepam 1 MG Orally Twice a day 1/2 tab in the AM and 1 tab in the PM 12h Sep, 28 days Active Keppra 500 MG Orally 2 times a day 3 capsules 12h Active Advair Diskus 500-50 MCG/DOSE Inhalation Twice a day 1 puff 12h Active Potassium Chloride ER 20 meq Orally Once a day 1 tablet with food 24h Sep, Jan, 30 day(s) Active Levetiracetam 500 mg Orally 2 times a day 3 tablets 12h Active Neurontin 300 MG Orally 3 times a day 1 capsule 8h Aug, Active [place] 10-325 MG Orally 3 times a day 1 tablet 8h Aug, 28 days Active Memantine HCl 5 mg Orally Once a day 1 tablet 24h 30 Active Clonidine HCl 0.1 MG Orally Twice a day 1 tablet 12h Active Ditropan XL 5 mg Orally Once a day 1 tablet 24h Mar, 30 day(s) Active Amitriptyline HCl 25 MG Orally Once a day at bedtime 1 tablet Active Colace 100 mg Orally twice a day 1 capsule 12h Active Omeprazole 20 mg Orally Once a day 1 capsules 24h Active Naproxen 500 MG Orally every 12 [...] Surgical History 27 brain surgeries including shunt, [place] Surgical History neck fusion 09/26, 09/28 Surgical History right hand surgery Hospitalization History surgeries Hospitalization History seizures 12/2015
--- OUTSIDE RECORDS SUMMARY | 2018-07-01 14:20 | XMS REPORT ---
Author Author JENIFER BRAY Organization [facility] Address [address] [place] [address] Care Team Providers Care Tube Balancer Name Role Phone JENIFER BRAY Unavailable PROBLEMS Type Condition ICD9-CM Code [id number] Code Onset Dates Condition Status SNOMED Code Problem Unspecified mental disorder due to known physiological condition F09 Active 836995156 Problem Major depressive disorder, recurrent, moderate F33.1 Active 99508667 Problem Dementia with behavioral disturbance, unspecified dementia type F03.91 Active 8084665811945 Problem Mood disorder F39 Active 80686286 Problem Other chronic pain G89.29 Active 37026637 Problem Anxiety F41.9 Active 75847390 Problem Unsteady gait R26.81 Active 95980040 Problem History of brain shunt Z98.2 Active 742982296 Problem PTSD (post-traumatic stress disorder) F43.10 Active 41293313 Problem Sleep apnea, unspecified type G47.30 Active 32556625 Problem Degenerative brain disorder G31.9 Active 79208471 Problem Depressive disorder, not elsewhere classified F32.9 Active 18459976 Problem Other chronic pain G89.29 Active 75619543 ALLERGIES No Information ENCOUNTERS Encounter Location Date Diagnosis [facility] [address] [facility] [id number] [address] Feb, [facility] [id number] [place] [address]658- 9[address] Feb, [facility] [address] [place] [id number] Jan, Dementia with behavioral disturbance, unspecified dementia type F03.91 ; Other chronic pain G89.29 and Plantar fasciitis M72.2 [facility] [address] [place] [id number] Jan, Daily headache R51 ; History of brain shunt Z98.2 ; Plantar fasciitis of left foot M72.2 ; Pain in right knee M25.561 and Pain in left knee M25.562 [facility] [address] [address] 99[address] Jan, [facility] [address] [address] Jan, Pain in right knee M25.561 [facility] [address] [address] 05 Jan, 2018 [facility] [address] [address] 5[address] Jan, [facility] [id number] [place] [address] 20293- 4696 Jan, [facility] [address] [address] December, Other chronic pain G89.29 [facility] [address] [place] [id number] December, Pain in left knee M25.562 ; Pain in right leg M79.604 ; Other chronic pain G89.29 ; Localized edema R60.0 and PTSD (post-traumatic stress disorder) F43.10 [facility] [address] [address] December, [facility] [address] [address] December, PTSD (post-traumatic stress disorder) F43.10 [facility] [address] [address] 4[address] December, [facility] [address] [address] 9[address] December, [facility] [address] [address] 3[address] December, Depressive disorder, not elsewhere classified F32.9 and Cognitive change R41.89 [facility] [address] [id number] [address] 2838 30 Nov, 2017 Major depressive disorder, recurrent, moderate F33.1 [facility] [id number] [place] [address] 11236- 0026 Nov, [facility] [id number] [place] [address] 90648- 5565 Nov, [facility] [id number] [place] [address] 49683- 2744 Nov, [facility] [id number] [place] [address] 36092- 7231 Nov, [facility] [id number] [place] [address] 18044- 1423 Nov, Mood disorder F39 [facility] [id number] [place] [address] 34039- 6088 Nov, Depressive disorder, not elsewhere classified F32.9 and Cognitive change R41.89 [facility] [id number] [place] [address] 62207- 0588 Nov, [facility] [id number] [place] [address] 06496- 3140 Nov, [facility] [address] [place] [id number] Oct, Tear of skin of plantar aspect of right foot, initial encounter S91.311A [facility] [address] [address] 20[address] Oct, [facility] [address] [id number] [address] Oct, [facility] [id number] [place] [id number] Oct, [facility] [id number] [place] [address] [id number] Oct, [facility] [id number] [place] [address] [id number] Sep, [facility] [id number] [place] [id number] Sep, [facility] [id number] [place] [address] [id number] Sep, [facility] [id number] [place] [id number] Sep, [facility] [id number] [place] [address] 84508- 3836 Sep, [facility] [address] [place] [address] 03691- 2686 Sep, Other chronic pain G89.29 and Pain in left knee M25.562 [facility] [address] [address] 2826 Sep, [facility] [address] [place] [id number] Sep, Plantar fasciitis of left foot M72.2 and Pain in right knee M25.561 [facility] [id number] [place] [id number] Aug, [facility] [address] [address] 9286 Aug, [facility] [address] [address] 2436 Aug, [facility] [address] [address] 8951 Aug, Chronic daily headache R51 [facility] [address] [id number] [address] Aug, [facility] [address] [place] [id number] Aug, Edema, unspecified type R60.9 ; Weight gain R63.5 and Sleep apnea, unspecified type G47.30 [facility] [address] [place] [id number] Jul, Acute pain of left knee M25.562 and Plantar fasciitis of left foot M72.2 [facility] [address] [address]46 Jul, [facility] [id number] Jul, Plantar fasciitis of left foot M72.2 and Chronic daily headache R51 [facility] [address] [id number] [id number] Jul, [facility] [id number] [place] [address] [id number] Jun, [facility] [address] [address] 3586 Jun, [facility] [id number] [place] [address] [id number] Jun, [facility] [id number] [place] [address] [id number] Jun, [facility] [id number] [place] [address] [id number] May, [facility] [id number] [place] [address] [id number] May, [facility] [address] [address] 8866 May, Stress incontinence of urine N39.3 [facility] [id number] [place] [id number] May, [facility] [address] [id number] May, Encounter for examination for admission to jail Z02.2 ; Toxoplasmosis B58.9 ; Seizures R56.9 ; Major depressive disorder, recurrent, moderate F33.1 ; Degenerative brain disorder G31.9 and Unsteady gait R26.81 [facility] [address] [address] 76[address] May, [facility] [place] [facility] [address] [facility] [id number] [place] [address]- 3117 May, Mood disorder F39 [facility] [place] [facility] [address] [id number] [place] [address]- 6196 May, [facility] [place] [facility] [address] [id number] [place] [address]- 7113 Apr, [facility] [place] [facility] [id number] [place] [address], [place] [address]- 2863 Mar, [facility] [place] [facility] [address] [id number] [place] [address]- 8383 Mar, [facility] [place] [facility] [address] [id number] [place] [address], [place] [address]- 8727 Mar, [facility] [place] [facility] [address] [id number] [place] [address]- 4366 Mar, [facility] [place] [facility] [address] [facility] [id number] [place] [address] 75205- 4037 Mar, [facility] [place] [facility] [address] [id number] [address]- 3040 Mar, Stress incontinence of urine N39.3 [facility] [id number] [place] [address] [id number] Mar, [facility] [place] [facility] [address] [facility] [id number] [place] [address]- 9010 Feb, [facility] [place] [facility] [address] [facility] [id number] [place] [address]- 9534 Feb, [facility] [place] [facility] [address] [facility] [id number] [place] [address]- 7879 Feb, [facility] [place] [facility] [address] [facility] [id number] [place] [address]- 3527 Feb, [facility] [place] [facility] [address] [facility] [id number] [place] [address]- 7922 Feb, [facility] [place] [facility] [address] [facility] [id number] [place] [address]- 5484 Feb, [facility] [address] [address]- 4798 Feb, [facility] [address] [address]- 3432 Jan, [facility] [address] [address]- 8143 Jan, [facility] [address] [address]- 0000 Jan, [facility] [address] [address]- 2169 Jan, [facility] [address] [address]- 2640 Jan, [facility] [address] [address]- 8158 Jan, [facility] [address] [address]- 9570 Jan, [facility] [address] [address]- 8356 Jan, General weakness R53.1 and Dementia with behavioral disturbance, unspecified dementia type F03.91 [facility] [address] [address]- 3022 December, [facility] [address] [address]- 9530 December, Other chronic pain G89.29 [facility] [address] [address]- 5916 December, [facility] [address] [address]- 2500 December, Unsteady gait R26.81 ; Generalized weakness R53.1 ; Unspecified mental disorder due to known physiological condition F09 and Generalized headaches R51 [facility] [address] [address]- 9172 December, [facility] [id number] [place] [address] 14305- 5828 Nov, Anxiety F41.9 [facility] [address] [place] [address] 04835- 7264 Nov, Mood disorder F39 [facility] [id number] [place] [address] 14347- 4176 Oct, [facility] [id number] [place] [address] 66723- 9135 Oct, Anxiety F41.9 [facility] [id number] [place] [address] 84487- 3723 Oct, Other chronic pain G89.29 [facility] [id number] [place] [address] 04523- 7210 Sep, Other chronic pain G89.29 ; Pain in left knee M25.562 ; Pain in right knee M25.561 and Anxiety F41.9 [facility] [id number] [place] [address] 47125- 3291 Sep, MDD (major depressive disorder), recurrent episode, mild F33.0 ; Degenerative brain disorder G31.9 and 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 [facility] [id number] [place] [address] 55603- 5408 Sep, [facility] [id number] [place] [address] 25956- 0019 Sep, [facility] [id number] [place] [address] 45712- 1951 Sep, Mood disorder F39 ; Pain of left leg M79.605 and Pain in right leg M79.604 [facility] [id number] [place] [address] 73793- 4835 Sep, Seizures R56.9 [facility] [address] [address] 2546 08 Sep, 2016 [facility] [id number] [place] [address] 12224- 0286 Sep, [facility] [id number] [place] [address] 29191 2546 Sep, [facility] [id number] [place] [address] 59523 2546 Aug, Bronchitis J40 [facility] [id number] [place] [address] 14925 2546 Aug, Bronchitis J40 and Encounter for drug screening Z02.83 [facility] [id number] [place] [address] 57489 2546 Aug, [facility] [id number] [place] [address] 53748- 5774 Aug, Seizures R56.9 [facility] [id number] [place] [address] 36976 2546 Aug, Seizures R56.9 [facility] [id number] [place] [address] 73510 2546 Aug, Major depressive disorder, recurrent, moderate F33.1 and Seizures R56.9 [facility] [id number] [place] [address] 45545 2546 Aug, [facility] [id number] [place] [address] 20540 2546 Aug, [facility] [address] [place] [address] 28524 2546 Aug, Major depressive disorder, recurrent, moderate F33.1 and Seizures R56.9 [facility] [address] [address] 2546 Jul, Major depressive disorder, recurrent, moderate F33.1 and Degenerative brain disorder G31.9 [facility] [address] [address]- 4971 Jul, Seizures R56.9 [facility] [id number] [place] [address] 55664- 5680 Apr, [address] [address]- 1268 Apr, Major depressive disorder, recurrent, moderate F33.1 ; Anxiety F41.9 and Degenerative brain disorder G31.9 [facility] [id number] [address]- 9561 Apr, Mood disorder F39 [facility] [id number] [place] [address] 70995- 3372 Apr, Arthritis M19.90 [facility] [id number] [place] [address] 42599- 0889 Mar, Arthritis M19.90 ; Degenerative brain disorder G31.9 and Nonintractable generalized idiopathic epilepsy without status epilepticus G40.309 [address] [address] [address]- 4705 Feb, IMMUNIZATIONS No Known Immunizations SOCIAL HISTORY Never Assessed REASON FOR VISIT Knee injection-Alanna BUENO PLAN OF CARE VITAL SIGNS Height 65 in 2017-09-27 Weight 165.7 lbs 2017-09-27 Temperature 98.3 degrees Fahrenheit 2017-09-27 Heart Rate 78 bpm 2017-09-27 Respiratory Rate 20 2017-09-27 BMI 27.57 kg/m2 2017-09-27 Blood pressure systolic 118 mmHg 2017-09-27 Blood pressure diastolic 76 mmHg 2017-09-27 MEDICATIONS Medication Instructions Dosage Frequency Start Date End Date Duration Status Naproxen 500 MG Orally every 12 hrs 1 tablet as needed 12h 30 Active Depakote 500 mg Orally 2 times a day 3 capsules 12h Active ProAir HFA 108 (90 Base) MCG/ACT Inhalation every 4 hrs 2 puffs as needed for cough or short of breath 4h 30 Active Memantine HCl 5 mg Orally Once a day 1 tablet 24h 30 Active Ondansetron 4 MG Orally every 8 hrs PRN 1 tablet on the tongue and allow to dissolve Aug, Active Depend Easy Fit Undergarments 1 as directed 8h Mar, Active Venlafaxine HCl ER 225 MG 1 tablet with food Once a day Orally 30 day(s) 30 Active Keppra 500 MG Orally 2 times a day 3 capsules 12h Active Laie 10-325 MG Orally 3 times a day 1 tablet 8h Aug, 28 days Active Neurontin 300 MG Orally 3 times a day 1 capsule before bedtime 8h Aug, 30 day(s) Active Amitriptyline HCl 25 MG TAKE 1 TABLET BY MOUTH DAILY AT BEDTIME 30 Active Zyrtec Allergy 10 mg Orally Once a day 1 tablet as needed 24h May, 30 day(s) Active Symbicort 160-4.5 MCG/ACT Inhalation Twice a day 2 puffs 12h Sep, 30 days Active Lexapro 20 mg Orally Once a day 1 tablet 24h Active Ditropan XL 5 mg Orally Once a day 1 tablet 24h Mar, 30 day(s) Active Wheelchair 1 as directed December, Active Omeprazole 20 mg 1 capsules Once a day Orally Active Levetiracetam 500 MG TAKE 3 TABLETS BY MOUTH TWICE DAILY 30 Active Omeprazole 20 mg Orally Once a day 1 capsules 24h Active Venlafaxine HCl ER 225 MG Orally Once a day 1 tablet with food 24h Sep, Active Clonazepam 1 MG Orally Twice a day 1/2 tab in the AM and 1 tab in the PM 12h Sep, 28 days Active RESULTS No Results PROCEDURES Procedure Date Ordered Result Body Site JOINT INJECTION-LARGE JOINT 2017-09-27 completed DRAIN/INJECT, JOINT/BURSA Sep 27, 2017 INSTRUCTIONS MEDICATIONS ADMINISTERED No Known Medications MEDICAL (GENERAL) HISTORY Type Description Date Medical History Toxoplasmosis Medical History migraine Medical History dementia Medical History depression Medical History alzheimers disease Medical History epilepsy Medical History COPD Surgical History cholecystectomy Surgical History appendectomy Surgical History 27 brain surgeries including shunt, [place] Surgical History neck fusion 09/26, 09/28 Surgical History right hand surgery Hospitalization History surgeries Hospitalization History seizures 12/2015
--- OUTSIDE RECORDS SUMMARY | 2018-07-01 14:21 | XMS REPORT ---
Author Author JENIFER BRAY Organization [facility] Address [address] [place] [address] Care Team Providers Care Kindergarten Teacher Assistant Name Role Phone JENIFER BRAY Unavailable PROBLEMS Type Condition ICD9-CM Code EEA40-LN Code Onset Dates Condition Status SNOMED Code Problem Other chronic pain G89.29 Active 66017211 Problem Unspecified mental disorder due to known physiological condition F09 Active 127248611 Problem Anxiety F41.9 Active 30966455 Problem Mood disorder F39 Active 73834539 Problem Other chronic pain G89.29 Active 54149103 Problem Sleep apnea, unspecified type G47.30 Active 37266127 Problem Dementia with behavioral disturbance, unspecified dementia type F03.91 Active 2546120273135 Problem Unsteady gait R26.81 Active 98690431 Problem Degenerative brain disorder G31.9 Active 57093734 Problem Major depressive disorder, recurrent, moderate F33.1 Active 63493006 ALLERGIES No Information ENCOUNTERS Encounter Location Date Diagnosis [place] [id number] [place] [address] 60836- 9306 Nov, [place] [id number] [place] [address] 49671- 4197 Nov, [place] [id number] [place] [address] 07757- 6385 Nov, [facility] [address] [place] [id number] Oct, Tear of skin of plantar aspect of right foot, initial encounter S91.311A [place] [id number] [place] [address] 01285- 5526 Oct, [place] [id number] [place] [address] 45217- 6301 Oct, [facility] [address] [place] [id number] Oct, [facility] [id number] [id number] Oct, [facility] [id number][place] [id number] Sep, [facility] [id number] [id number] Sep, [facility] [id number], [place] [id number] Sep, [facility] [id number], [place] [id number] Sep, [facility] [address], [place] [address] Sep, [facility] [address], [place] [address] Sep, Other chronic pain G89.29 and Pain in left knee M25.562 [facility] [id number], [place] [address] Sep, [facility] [address] [place] [id number] Sep, Plantar fasciitis of left foot M72.2 and Pain in right knee M25.561 [facility] [id number] [id number] Aug, [facility] [id number], [place] [address] 75[address] Aug, [facility] [id number], [place] [address] Aug, [facility] [address] [address] Aug, Chronic daily headache R51 [facility] [id number], [place] [address] Aug, [facility] [address] [id number] Aug, Edema, unspecified type R60.9 ; Weight gain R63.5 and Sleep apnea, unspecified type G47.[address] [facility] [address] [id number] Jul, Acute pain of left knee M25.562 and Plantar fasciitis of left foot M72.2 [facility] [address], [place] [address] Jul, [facility] [address] [id number] Jul, Plantar fasciitis of left foot M72.2 and Chronic daily headache R51 [facility] [id number], [place] [id number] Jul, [facility] [id number] [id number] Jun, [facility] [id number], [place] [address] 2546 Jun, [facility] [id number] [place] [id number] Jun, [facility] [id number] [place] [id number] Jun, [facility] [id number] [id number] May, [facility] [id number] [place] [id number] May, [facility] [id number] [address] 2542 May, Stress incontinence of urine N39.3 [facility] [id number] [place] [id number] May, [facility] [id number] May, Encounter for examination for admission to residential Z02.2 ; Toxoplasmosis B58.9 ; Seizures R56.9 ; Major depressive disorder, recurrent, moderate F33.1 ; Degenerative brain disorder G31.9 and Unsteady gait R26.81 [facility] [id number] [place] [address] 94216- 4375 May, [facility] [id number] [place] [address] 66208- 3709 May, Mood disorder F39 [facility] [id number] [place] [address] 37769- 6806 May, [facility] [id number] [place] [address] 11664- 0996 Apr, [facility] [id number] [place] [address] 15917- 6796 Mar, [facility] [id number] [place] [address] 06312- 9180 Mar, [facility] [id number] [place] [address] 35686- 1873 Mar, [facility] [id number] [place] [address] 09315- 4000 Mar, [facility] [id number] [place] [address] 71890- 9128 Mar, [facility] [id number] [place] [address] 95972- 7692 Mar, Stress incontinence of urine N39.3 [facility] [id number] [place] [id number] Mar, [facility] [id number] [place] [address] 05001- 4557 Feb, [facility] [id number] [place] [address] 71603- 1908 Feb, [facility] [id number] [place] [address] 83480- 7042 Feb, [facility] [id number] [address] 3479 Feb, [facility] [address] [facility] [id number] [place] [address] 0226 Feb, [facility] [address] [facility] [id number] [place] [address]- 6731 Feb, [facility] [address]65[address] [place] [address] 8048 Feb, [facility] [address] [facility] [id number] [place] [address]- 3742 Jan, [facility] [address] [place] [address]- 5645 Jan, [facility] [id number] [place] [address]- 6383 Jan, [facility] [address] [place] [address]- 9202 Jan, [facility] [address]100[place], [place] [address]- 6223 Jan, [facility] [address]65100[place], [place] [address]- 5021 Jan, [facility] [address]65100[place], [place] [address]- 3881 Jan, [facility] [address]100[place], [place] [address]- 1133 Jan, General weakness R53.1 and Dementia with behavioral disturbance, unspecified dementia type F03.91 [facility] [address] [facility] [id number], [place] [address] 6[address] December, [facility] [address]65100[place], [place] [address]- 9330 December, Other chronic pain G89.29 [facility] [address]65100[place], [place] [address]- 7416 December, [facility] [address] [place] [address] 88713- 9803 December, Unsteady gait R26.81 ; Generalized weakness R53.1 ; Unspecified mental disorder due to known physiological condition F09 and Generalized headaches R51 [facility] [id number] [place] [address] 88270- 1175 December, [facility] [id number] [place] [address] 47146- 3830 Nov, Anxiety F41.9 [place] [id number] [place] [address] 88673- 7218 Nov, Mood disorder F39 [place] [id number] [place] [address] 38225- 5052 Oct, [place] [id number] [place] [address] 51759- 9540 Oct, Anxiety F41.9 [place] [id number] [place] [address] 91323- 0350 Oct, Other chronic pain G89.29 [place] [id number] [place] [address] 16801- 5860 Sep, Other chronic pain G89.29 ; Pain in left knee M25.562 ; Pain in right knee M25.561 and Anxiety F41.9 [place] [id number] [place] [address] 49485- 4556 Sep, MDD (major depressive disorder), recurrent episode, mild F33.0 ; Degenerative brain disorder G31.9 and Other nursing home (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 Z79.899 [place] [id number] [place] [address] 93005- 1843 Sep, [place] [id number] [place] [address] 07160- 3007 Sep, [place] [id number] [place] [address] 93266- 3651 Sep, Mood disorder F39 ; Pain of left leg M79.605 and Pain in right leg M79.604 [facility] [id number] [place] [address] 90047- 2106 Sep, Seizures R56.9 [facility] [id number] [place] [address] 25108- 9236 Sep, [facility] [address] 0[address]49- 7578 Sep, [facility] [id number] [place] [address] 36366- 5587 Sep, [facility] [id number] [place] [address] 41633- 7645 Aug, Bronchitis J40 [facility] [address] 20290- 5074 Aug, Bronchitis J40 and Encounter for drug screening Z02.83 [facility] [id number] [place] [address] 79523- 4036 Aug, [facility] [id number] [place] [address] 24515- 7030 Aug, Seizures R56.9 [facility] [id number] [place] [address] 91157- 1272 Aug, Seizures R56.9 [facility] [id number] [place] [address] 67602- 5340 Aug, Major depressive disorder, recurrent, moderate F33.1 and Seizures R56.9 [facility] [id number] [place] [address] 67666- 2454 Aug, [facility] [id number] [place] [address] 44134- 0020 Aug, [facility] [id number] [place] [address] 29713- 1689 Aug, Major depressive disorder, recurrent, moderate F33.1 and Seizures R56.9 [place] [id number] [place] [address] 99029- 1563 Jul, Major depressive disorder, recurrent, moderate F33.1 and Degenerative brain disorder G31.9 [place] [id number] [place] [address] 66673- 6125 Jul, Seizures R56.9 [place] [id number] [place] [address] 27019- 7446 Apr, [place] [id number] [place] [address] 56946- 5796 Apr, Major depressive disorder, recurrent, moderate F33.1 ; Anxiety F41.9 and Degenerative brain disorder G31.9 [place] [id number] [place] [address] 09977- 1851 Apr, Mood disorder F39 [place] [id number] [place] [address] 72306- 3375 Apr, Arthritis M19.90 [place] [id number] [place] [address] 15745- 2240 Mar, Arthritis M19.90 ; Degenerative brain disorder G31.9 and Nonintractable generalized idiopathic epilepsy without status epilepticus G40.309 [place] [id number] [place] [address] 23893- 9793 Feb, IMMUNIZATIONS No Known Immunizations SOCIAL HISTORY Never Assessed REASON FOR VISIT Refill request PLAN OF CARE VITAL SIGNS MEDICATIONS Medication Instructions Dosage Frequency Start Date End Date Duration Status Bison 10-325 MG Orally every 6 hrs 1 tablet as needed 6h Mar, 28 days Active ProAir HFA 108 (90 Base) MCG/ACT Inhalation every 4 hrs 2 puffs as needed for cough or short of breath 4h 30 days Active RESULTS No Results PROCEDURES No Known procedures INSTRUCTIONS MEDICATIONS ADMINISTERED No Known Medications MEDICAL (GENERAL) HISTORY Type Description Date Medical History Toxoplasmosis Medical History migraine Medical History dementia Medical History depression Medical History alzheimers disease Medical History epilepsy Medical History COPD Surgical History cholecystectomy Surgical History appendectomy Surgical History 27 brain surgeries including shunt, [place] Surgical History neck fusion 09/26, 09/28 Surgical History right hand surgery Hospitalization History surgeries Hospitalization History seizures 12/2015
--- OUTSIDE RECORDS SUMMARY | 2018-07-01 14:21 | XMS REPORT ---
Author Author JENIFER BRAY Organization [facility] Address [address] [place] [address] Care Team Providers Care Ecotherapist Name Role Phone JENIFER BRAY Unavailable PROBLEMS Type Condition ICD9-CM Code AEM07-YD Code Onset Dates Condition Status SNOMED Code Problem Other chronic pain G89.29 Active 96047496 Problem Unspecified mental disorder due to known physiological condition F09 Active 338568596 Problem Anxiety F41.9 Active 43993906 Problem Mood disorder F39 Active 58023631 Problem Other chronic pain G89.29 Active 62776077 Problem Sleep apnea, unspecified type G47.30 Active 82351588 Problem Dementia with behavioral disturbance, unspecified dementia type F03.91 Active 8480904335274 Problem Unsteady gait R26.81 Active 19555865 Problem Degenerative brain disorder G31.9 Active 12092089 Problem Major depressive disorder, recurrent, moderate F33.1 Active 43750599 ALLERGIES No Information ENCOUNTERS Encounter Location Date Diagnosis [facility] [address], [place] [id number] Oct, Tear of skin of plantar aspect of right foot, initial encounter S91.311A [facility] [id number] [address] Oct, [facility] [id number], [place] [address] Oct, [facility] [address] [id number] [id number] Oct, [facility] [address] [id number] [id number] Oct, [facility] [address] [id number] [id number] Sep, [facility] [address] [id number][place] [id number] 14 Sep, 2017 [facility] [id number] [id number] Sep, [facility] [id number] [id number] Sep, [facility] [address] [id number], [place] [address] Sep, [facility] [address], [place] [address] Sep, Other chronic pain G89.29 and Pain in left knee M25.562 [facility] [address], [place] [address] Sep, [facility] [address] [id number] Sep, Plantar fasciitis of left foot M72.2 and Pain in right knee M25.561 [facility] [id number] [id number] Aug, [facility] [address] [id number] [address] Aug, [facility] [address] [address] Aug, [facility] [address] [id number] [address] Aug, Chronic daily headache R51 [facility] [address] [id number] [address] Aug, [facility] [address] [id number] Aug, Edema, unspecified type R60.9 ; Weight gain R63.5 and Sleep apnea, unspecified type G47.30 [facility] [address] [id number] Jul, Acute pain of left knee M25.562 and Plantar fasciitis of left foot M72.2 [facility] [id number], [place] [address] Jul, [facility] [address] [id number] Jul, Plantar fasciitis of left foot M72.2 and Chronic daily headache R51 [facility] [id number], [place] [id number] Jul, [facility] [address] [id number] [id number] Jun, [facility] [address]00565100[place], [place] [address] Jun, [facility] [id number] [place] [id number] Jun, [facility] [id number] [id number] Jun, [facility] [id number] [place] [id number] May, [facility] [address] [id number] [id number] May, [facility] [address], [place] [address] May, Stress incontinence of urine N39.3 [facility] [id number] [id number] May, [address] [id number] May, Encounter for examination for admission to care home Z02.2 ; Toxoplasmosis B58.9 ; Seizures R56.9 ; Major depressive disorder, recurrent, moderate F33.1 ; Degenerative brain disorder G31.9 and Unsteady gait R26.81 [facility] [address] [address] May, [facility] [id number] [address] May, Mood disorder F39 [facility] [place] [facility] [address] [id number] [place] [address] May, [facility] [place] [facility] [address] [id number] [place] [address] Apr, [facility] [place] [facility] [address] [id number] [place] [address] Mar, [facility] [place] [facility] [id number] [place] [address], [place] [address] Mar, [facility] [place] [facility] [address] [id number] [place] [address] Mar, [facility] [place] [facility] [address] [id number] [place] [address], [place] [address] Mar, [facility] [place] [facility] [address] [id number] [place] [address] Mar, [facility] [place] [facility] [id number] [place] [address] Mar, Stress incontinence of urine N39.3 [facility] [id number] [place] [id number] Mar, [facility] [place] [facility] [id number], [place] [address] Feb, [facility] [place] [facility] [address] [id number], [place] [address] Feb, [facility] [place] [facility] [address] [id number], [place] [address] Feb, [facility] [place] [facility] [address] [id number], [place] [address] Feb, [facility] [place] [facility] [address] [facility] [id number], [place] [address] Feb, [facility] [place] [facility] [address] [id number] [place] [address] Feb, [facility] [place] [facility] [address]00565100[place], [place] [address] Feb, [facility] [address]00565100[place], [place] [address] Jan, [facility] [address]00565100[place], [place] [address] Jan, [facility] [address]00565100[place], [place] [address] Jan, [facility] [address]00565100[place], [place] [address] Jan, [facility] [address], [place] [address] Jan, [facility] [address], [place] [address] Jan, [facility] [address], [place] [address] Jan, [facility] [address], [place] [address] Jan, General weakness R53.1 and Dementia with behavioral disturbance, unspecified dementia type F03.91 [facility] [address], [place] [address] December, [facility] [address], [place] [address] December, Other chronic pain G89.29 [facility] [address], [place] [address] December, [facility] [address], [place] [address] December, Unsteady gait R26.81 ; Generalized weakness R53.1 ; Unspecified mental disorder due to known physiological condition F09 and Generalized headaches R51 [facility] [address], [place] [address] December, [facility] [address], [place] [address] Nov, Anxiety F41.9 [facility] [id number] [place] [address]66 Nov, Mood disorder F39 [facility] [id number] [place] [address]- 1397 Oct, [facility] [id number] [place] [address]- 5588 Oct, Anxiety F41.9 [facility] [id number] [place] [address]- 5606 Oct, Other chronic pain G89.29 [facility] [id number] [place] [address]- 1353 Sep, Other chronic pain G89.29 ; Pain in left knee M25.562 ; Pain in right knee M25.561 and Anxiety F41.9 [facility] [id number] [place] [address]809 Sep, MDD (major depressive disorder), recurrent episode, mild F33.0 ; Degenerative brain disorder G31.9 and 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 [facility] [id number] [place] [address]0720- 2981 Sep, [facility] [address] [id number], [place] [address] 7[address] Sep, [facility] [id number] [place] [address]- 2725 Sep, Mood disorder F39 ; Pain of left leg M79.605 and Pain in right leg M79.604 [facility] [address], [place] [address] 14 Sep, 2016 Seizures R56.9 [facility] [id number] [place] [address]353- 5876 08 Sep, 2016 [facility] [id number] [place] [address] 76188- 5832 Sep, [facility] [id number] [place] [address] 532037- 6336 Sep, [facility] [id number] [place] [address] 70162- 4796 Aug, Bronchitis J40 [facility] [id number] [place] [address] 56457- 3886 Aug, Bronchitis J40 and Encounter for drug screening Z02.83 [facility] [id number] [place] [address] 79769- 9116 Aug, [facility] [id number] [place] [address] 46065- 6157 Aug, Seizures R56.9 [facility] [id number] [place] [address] 16139- 4355 Aug, Seizures R56.9 [facility] [id number] [place] [address] 34273- 5179 Aug, Major depressive disorder, recurrent, moderate F33.1 and Seizures R56.9 [facility] [id number] [place] [address] 13934- 3315 Aug, [facility] [id number] [place] [address] 79356- 4416 Aug, [facility] [id number] [place] [address] 05184- 3836 Aug, Major depressive disorder, recurrent, moderate F33.1 and Seizures R56.9 [facility] [id number] [place] [address] 351496- 6678 Jul, Major depressive disorder, recurrent, moderate F33.1 and Degenerative brain disorder G31.9 [facility] [id number] [place] [address] 71670- 8935 Jul, Seizures R56.9 [address], [place] [address]- 5964 Apr, [id number] [place] [address] 90474- 6438 Apr, Major depressive disorder, recurrent, moderate F33.1 ; Anxiety F41.9 and Degenerative brain disorder G31.9 [id number] [place] [address] 83066- 7598 Apr, Mood disorder F39 [id number] [place] [address] 90793- 0092 Apr, Arthritis M19.90 [id number] [place] [address] 17888- 0621 Mar, Arthritis M19.90 ; Degenerative brain disorder G31.9 and Nonintractable generalized idiopathic epilepsy without status epilepticus G40.309 [address], [place] [address]- 67[address] Feb, IMMUNIZATIONS No Known Immunizations SOCIAL HISTORY Never Assessed REASON FOR VISIT Requests return call PLAN OF CARE VITAL SIGNS MEDICATIONS Unknown Medications RESULTS No Results PROCEDURES No Known procedures INSTRUCTIONS MEDICATIONS ADMINISTERED No Known Medications MEDICAL (GENERAL) HISTORY Type Description Date Medical History Toxoplasmosis Medical History migraine Medical History dementia Medical History depression Medical History alzheimers disease Medical History epilepsy Medical History COPD Surgical History cholecystectomy Surgical History appendectomy Surgical History 27 brain surgeries including shunt, [place] Surgical History neck fusion 09/26, 09/28 Surgical History right hand surgery Hospitalization History surgeries Hospitalization History seizures 12/2015
--- OUTSIDE RECORDS SUMMARY | 2018-07-01 14:21 | XMS REPORT ---
Author Author JENIFER BRAY [facility] Address [address] [place] [address] Care Team Providers Care Hoop Maker Machine Name Role Phone JENIFER BRAY Unavailable PROBLEMS Type Condition ICD9-CM Code ZYW55-PR Code Onset Dates Condition Status SNOMED Code Problem Dementia with behavioral disturbance, unspecified dementia type F03.91 Active 8006442386647 Problem Unsteady gait R26.81 Active 70829027 Problem Other chronic pain G89.29 Active 49544078 Problem Mood disorder F39 Active 99275687 Problem Unspecified mental disorder due to known physiological condition F09 Active 155714573 Problem Anxiety F41.9 Active 94045607 ALLERGIES No Information SOCIAL HISTORY Never Assessed PLAN OF CARE VITAL SIGNS MEDICATIONS Unknown Medications RESULTS No Results PROCEDURES No Known procedures IMMUNIZATIONS No Known Immunizations MEDICAL (GENERAL) HISTORY Type Description Date Medical History Toxoplasmosis Medical History migraine Medical History dementia Medical History depression Medical History alzheimers disease Medical History epilepsy Surgical History cholecystectomy Surgical History appendectomy Surgical History 27 brain surgeries including shunt, [place] Surgical History neck fusion 09/26, 09/28 Surgical History right hand surgery Hospitalization History surgeries Hospitalization History seizures 12/2015
--- OUTSIDE RECORDS SUMMARY | 2018-07-01 14:21 | XMS REPORT ---
Author Author ESTEPHANIA IVAN Organization [facility] Address [address] [place] [address] Care Team Providers Care Corn Sheller Name Role Phone ESTEPHANIA IVAN Unavailable PROBLEMS Type Condition ICD9-CM Code OZV68-PV Code Onset Dates Condition Status SNOMED Code Problem Unspecified mental disorder due to known physiological condition F09 Active 074531413 Problem Major depressive disorder, recurrent, moderate F33.1 Active 42292396 Problem Dementia with behavioral disturbance, unspecified dementia type F03.91 Active 3858980661557 Problem Mood disorder F39 Active 48837787 Problem Other chronic pain G89.29 Active 26023254 Problem Anxiety F41.9 Active 86628784 Problem Unsteady gait R26.81 Active 33628056 Problem History of brain shunt Z98.2 Active 688727824 Problem PTSD (post-traumatic stress disorder) F43.10 Active 34397214 Problem Sleep apnea, unspecified type G47.30 Active 18509864 Problem Degenerative brain disorder G31.9 Active 04036571 Problem Depressive disorder, not elsewhere classified F32.9 Active 45234018 Problem Other chronic pain G89.29 Active 80526580 ALLERGIES No Information ENCOUNTERS Encounter Location Date Diagnosis [facility] [address] [facility] [id number] [address] Feb, [facility] [address] [facility] [id number] [address] Feb, [facility] [address] [place] [id number] Jan, Dementia with behavioral disturbance, unspecified dementia type F03.91 ; Other chronic pain G89.29 and Plantar fasciitis M72.2 [facility] [address] [place] [id number] Jan, Daily headache R51 ; History of brain shunt Z98.2 ; Plantar fasciitis of left foot M72.2 ; Pain in right knee M25.561 and Pain in left knee M25.562 [facility] [address] [address] Jan, [facility] [address], [place] [address] 07 Jan, 2018 Pain in right knee M25.561 [facility] [id number] [place] [address]- 6[address] Jan, [facility] [address] [place] [address]42- 6572 Jan, [facility] [address] [place] [address]114- 0046 Jan, [facility] [address] [place] [address]12- 1767 December, Other chronic pain G89.29 [facility] [address] [address] December, Pain in left knee M25.562 ; Pain in right leg M79.604 ; Other chronic pain G89.29 ; Localized edema R60.0 and PTSD (post-traumatic stress disorder) F43.10 [facility] [address] [address] December, [facility] [address], [place] [address] December, PTSD (post-traumatic stress disorder) F43.10 [facility] [address], [place] [address] December, [facility] [address] [id number], [place] [address] December, [facility] [address], [place] [address] December, Depressive disorder, not elsewhere classified F32.9 and Cognitive change R41.89 [facility] [address], [place] [address] 30 Nov, 2017 Major depressive disorder, recurrent, moderate F33.1 [facility] [address] [place] [address]87- 1605 Nov, [facility] [id number] [place] [address] 14071- 1678 Nov, [facility] [id number] [place] [address] 19601- 6337 Nov, [facility] [id number] [place] [address] 42155- 6288 Nov, [facility] [id number] [place] [address] 11913- 8263 Nov, Mood disorder F39 [facility] [id number] [place] [address] 6[address]- 4170 Nov, Depressive disorder, not elsewhere classified F32.9 and Cognitive change R41.89 [facility] [address] [place] [address] 21303- 4644 Nov, [facility] [address] [place] [address] 35169- 1586 Nov, [facility] [address] [id number] Oct, Tear of skin of plantar aspect of right foot, initial encounter S91.311A [facility] [address], [place] [address] Oct, [facility] [address], [place] [address] 14 Oct, 2017 [facility] [place] [facility] [id number] [place] [id number] Oct, 2017 [facility] [place] [facility] [id number] [place] [address] [id number] 06 Oct, 2017 [facility] [place] [facility] [id number] [place] [address] [id number] Sep, [facility] [id number] [id number] Sep, [facility] [id number] [place] [id number] Sep, [facility] [id number] [id number] Sep, [facility] [address] [place] [address] 086[address]- 6066 Sep, [facility] [address] [place] [address] 20542- 3612 Sep, Other chronic pain G89.29 and Pain in left knee M25.562 [facility] [address] Sep, [facility] [address] [place] [id number] Sep, Plantar fasciitis of left foot M72.2 and Pain in right knee M25.561 [facility] [id number] [place] [id number] Aug, [facility] [address] [address] Aug, [facility] [id number] [address] Aug, [facility] [address] [address] Aug, Chronic daily headache R51 [facility] [address] Aug, [facility] [address] [place] [id number] Aug, Edema, unspecified type R60.9 ; Weight gain R63.5 and Sleep apnea, unspecified type G47.30 [facility] [address] [place] [id number] Jul, Acute pain of left knee M25.562 and Plantar fasciitis of left foot M72.2 [facility] [id number], [place] [address] Jul, [facility] [address] [place] [id number] Jul, Plantar fasciitis of left foot M72.2 and Chronic daily headache R51 [facility] [place] [facility] [id number] [id number] Jul, [facility] [place] [facility] [id number] [place] [address] [id number] Jun, [facility] [address], [place] [address] 2546 Jun, [facility] [address] [id number] [id number] Jun, [facility] [place] [facility] [id number] [place] [address] [id number] Jun, [facility] [place] [facility] [id number] [place] [id number] May, [facility] [id number] [place] [address] [id number] May, [facility] [id number] [address]46 May, Stress incontinence of urine N39.3 [facility] [place] [facility] [id number] [place] [id number] May, [facility] [address] [id number] May, Encounter for examination for admission to detention Z02.2 ; Toxoplasmosis B58.9 ; Seizures R56.9 ; Major depressive disorder, recurrent, moderate F33.1 ; Degenerative brain disorder G31.9 and Unsteady gait R26.81 [facility] [id number], [place] [address] May, [facility] [place] [facility] [address] [id number] [place] [address] May, Mood disorder F39 [facility] [place] [facility] [address] [id number] [place] [address]- 2121 May, [facility] [place] [facility] [address] [id number] [place] [address]- 9858 Apr, [facility] [place] [facility] [id number] [place] [address], [place] [address]- [address]109 Mar, [facility] [place] [facility] [address] [id number] [place] [address]- 3024 Mar, [facility] [place] [facility] [address] [id number] [place] [address], [place] [address]- [address] Mar, [facility] [place] [facility] [address] [id number] [place] [address]- 2610 Mar, [facility] [place] [facility] [address] [id number] [place] [address]- 6146 Mar, [facility] [place] [facility] [address] [id number] [place] [address]- 3572 Mar, Stress incontinence of urine N39.3 [facility] [address] [id number] [id number] Mar, [facility] [place] [facility] [address] [id number] [address] 0[address] Feb, [facility] [place] [facility] [address] [id number], [place] [address] 0448 Feb, [facility] [place] [facility] [address] [id number], [place] [address] Feb, [facility] [place] [facility] [address] [id number], [place] [address]- 0031 Feb, [facility] [place] [facility] [address] [id number] [place] [address]- 4668 Feb, [facility] [place] [facility] [address], [place] [address]- 3563 Feb, [facility] [address], [place] [address]- 5218 Feb, [facility] [address], [place] [address]- 2678 Jan, [facility] [address], [place] [address]- 8110 Jan, [facility] [address], [place] [address]- 7672 Jan, [facility] [address], [place] [address]- 8629 Jan, [facility] [address], [place] [address]- 3893 Jan, [facility] [address], [place] [address]- 0836 Jan, [facility] [address], [place] [address]- 0264 Jan, [facility] [address], [place] [address]- 5839 Jan, General weakness R53.1 and Dementia with behavioral disturbance, unspecified dementia type F03.91 [facility] [address], [place] [address]- 36[address] December, [facility] [address], [place] [address]- 8586 December, Other chronic pain G89.29 [facility] [address], [place] [address]- 7890 December, [facility] [address], [place] [address]- 0508 December, Unsteady gait R26.81 ; Generalized weakness R53.1 ; Unspecified mental disorder due to known physiological condition F09 and Generalized headaches R51 [facility] [address] [place] [address] 31009- 2209 December, [facility] [id number] [place] [address] 95221- 7889 Nov, Anxiety F41.9 [facility] [id number] [place] [address] 67052- 1947 Nov, Mood disorder F39 [facility] [address] [address] Oct, [facility] [id number] [place] [address] 75408- 0755 Oct, Anxiety F41.9 [facility] [id number] [place] [address] 99390- 4236 Oct, Other chronic pain G89.29 [place] [address] [address]- [address]04 Sep, Other chronic pain G89.29 ; Pain in left knee M25.562 ; Pain in right knee M25.561 and Anxiety F41.9 [facility] [place] [id number] [place] [address] 74390- 3297 Sep, MDD (major depressive disorder), recurrent episode, mild F33.0 ; Degenerative brain disorder G31.9 and 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 [place] [id number] [place] [address] 53497- 8949 Sep, [facility] [id number] [place] [address] 37894- 5943 Sep, [facility] [id number] [place] [address] 63316- 0338 Sep, Mood disorder F39 ; Pain of left leg M79.605 and Pain in right leg M79.604 [place] [id number] [place] [address] 31606- 6198 Sep, Seizures R56.9 [facility] [address] [place] [address] 25510- 7046 08 Sep, 2016 [facility] [id number] [place] [address] 98963- 1776 07 Sep, 2016 [facility] [id number] [place] [address] 72808- 8206 Sep, [facility] [id number] [place] [address] 87580- 3336 Aug, Bronchitis J40 [facility] [id number] [place] [address] 81719- 8476 Aug, Bronchitis J40 and Encounter for drug screening Z02.83 [facility] [id number] [place] [address] 02375- 8936 Aug, [facility] [id number] [place] [address] 97374 2546 Aug, Seizures R56.9 [facility] [id number] [place] [address] 47204 2546 Aug, Seizures R56.9 [facility] [id number] [place] [address] 18615 2546 Aug, Major depressive disorder, recurrent, moderate F33.1 and Seizures R56.9 [facility] [address] [place] [address] 73907 2546 Aug, [facility] [address] [place] [address] 84170 2546 Aug, [facility] [id number] [place] [address] 20110 2546 Aug, Major depressive disorder, recurrent, moderate F33.1 and Seizures R56.9 [facility] [address] [place] [address] 74583 2546 Jul, Major depressive disorder, recurrent, moderate F33.1 and Degenerative brain disorder G31.9 [place] [address], [place] [address]- 8693 Jul, Seizures R56.9 [place] [address], [place] [address]- 8919 Apr, [place] [place] [address], [place] [address]- 1788 Apr, Major depressive disorder, recurrent, moderate F33.1 ; Anxiety F41.9 and Degenerative brain disorder G31.9 [place] [address], [place] [address]- 6891 Apr, Mood disorder F39 [place] [address] [place] [address] 94931- 8278 Apr, Arthritis M19.90 [place] [address] [place] [address] 08623- 5745 Mar, Arthritis M19.90 ; Degenerative brain disorder G31.9 and Nonintractable generalized idiopathic epilepsy without status epilepticus G40.309 [place] [address], [place] [address]- 1375 Feb, IMMUNIZATIONS No Known Immunizations SOCIAL HISTORY Never Assessed REASON FOR VISIT Refill request PLAN OF CARE VITAL SIGNS MEDICATIONS Medication Instructions Dosage Frequency Start Date End Date Duration Status Advair Diskus 500-50 MCG/DOSE Inhalation Twice a day 1 puff 12h Sep, 30 days Active RESULTS No Results PROCEDURES No Known procedures INSTRUCTIONS MEDICATIONS ADMINISTERED No Known Medications MEDICAL (GENERAL) HISTORY Type Description Date Medical History Toxoplasmosis Medical History migraine Medical History dementia Medical History depression Medical History alzheimers disease Medical History epilepsy Medical History COPD Surgical History cholecystectomy Surgical History appendectomy Surgical History 27 brain surgeries including shunt, [place] Surgical History neck fusion 09/26, 09/28 Surgical History right hand surgery Hospitalization History surgeries Hospitalization History seizures 12/2015
--- OUTSIDE RECORDS SUMMARY | 2018-07-01 14:22 | XMS REPORT ---
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[employer] Name Role Phone JENIFER BRAY Unavailable PROBLEMS Type Condition ICD9-CM Code [id number] Code Onset Dates Condition Status SNOMED Code Problem Dementia with behavioral disturbance, unspecified dementia type F03.91 Active 4745635407985 Problem Unsteady gait R26.81 Active 57491335 Problem Other chronic pain G89.29 Active 52190267 Problem Mood disorder F39 Active 72028015 Problem Unspecified mental disorder due to known physiological condition F09 Active 830428080 Problem Anxiety F41.9 Active 85535886 ALLERGIES Unknown Allergies SOCIAL HISTORY No smoking Hx information available PLAN OF CARE VITAL SIGNS MEDICATIONS Medication Instructions Dosage Frequency Start Date End Date Duration Status Breo Ellipta 100-25 MCG/INH Inhalation Once a day 1 puff 24h Aug, Active [place] 10-325 MG Orally every 6 hrs 1 tablet as needed 6h Aug, 28 days Active Venlafaxine HCl ER 75 MG Orally Once a day 3 tablet with food 24h Aug, 30 days Active RESULTS No Results PROCEDURES No Known procedures IMMUNIZATIONS No Known Immunizations
--- OUTSIDE RECORDS SUMMARY | 2018-07-01 14:22 | XMS REPORT ---
Author Author JENIFER BRAY [facility] Address [address] [place] [address] Care Team Providers Care Cable Strander Name Role Phone JENIFER BRAY Unavailable PROBLEMS Type Condition ICD9-CM Code QGW07-PH Code Onset Dates Condition Status SNOMED Code Problem Dementia with behavioral disturbance, unspecified dementia type F03.91 Active 2023340240563 Problem Unsteady gait R26.81 Active 73358993 Problem Other chronic pain G89.29 Active 83161831 Problem Mood disorder F39 Active 60059489 Problem Unspecified mental disorder due to known physiological condition F09 Active 503290027 Problem Anxiety F41.9 Active 97469575 ALLERGIES Substance Reaction Event Type Date Status Morphine Sulfate Unknown Drug Allergy Aug, Active SOCIAL HISTORY No smoking Hx information available PLAN OF CARE VITAL SIGNS Height 65 in 2016-09-17 Weight 126.3 lbs 2016-09-17 Temperature 98.1 degrees Fahrenheit 2016-09-17 Heart Rate 86 bpm 2016-09-17 Respiratory Rate 20 2016-09-17 BMI 21.02 kg/m2 2016-09-17 Blood pressure systolic 102 mmHg 2016-09-17 Blood pressure diastolic 74 mmHg 2016-09-17 MEDICATIONS Medication Instructions Dosage Frequency Start Date End Date Duration Status ProAir HFA 108 (90 Base) MCG/ACT Inhalation every 4 hrs 2 puffs as needed for cough or short of breath 4h 30 days Active Breo Ellipta 100-25 MCG/INH Inhalation Once a day 1 puff 24h 28 days Active Depakote 500 MG Orally 2 times a day 3 capsules 12h 50 days Active [place] 10-325 MG Orally every 6 hrs 1 tablet as needed 6h Aug, 28 days Active Venlafaxine HCl ER 75 MG Orally Once a day 3 tablet with food 24h Aug, 30 days Active Breo Ellipta 100-25 MCG/INH Inhalation Once a day 1 puff 24h Aug, Active Amitriptyline HCl 25 MG Orally Once a day 1 tablet at bedtime 24h Apr, 135 days Active Keppra 500 MG Orally 2 times a day 3 capsules 12h 90 days Active Lexapro 20 MG Orally Once a day 1 tablet 24h 90 days Active PredniSONE 20 mg Orally Once a day 2 tablets 24h Aug, Sep, 05 days Active Omeprazole 20 mg Orally Once a day 1 capsules 24h Active Ondansetron 4 MG Orally every 8 hrs PRN 1 tablet on the tongue and allow to dissolve Aug, Active Doxycycline Hyclate 100 mg Orally every 12 hrs 1 capsule 12h Aug, Sep, 10 days Active RESULTS Name Result Date Reference Range AMERITOX 2016-09-17 PROCEDURES Procedure Date Ordered Related Diagnosis Body Site Office Visit, Est Pt., Level 3 Sep 17, 2016 IMMUNIZATIONS No Known Immunizations
--- OUTSIDE RECORDS SUMMARY | 2018-07-01 14:22 | XMS REPORT ---
Author Author AGUSTIN Leyva [facility] Address [address] [place] [address] Care Team Providers Care Cap Maker Name Role Phone AGUSTIN Leyva Unavailable PROBLEMS Type Condition ICD9-CM Code [id number] Code Onset Dates Condition Status SNOMED Code Problem Dementia with behavioral disturbance, unspecified dementia type F03.91 Active 5260873153846 Problem Unsteady gait R26.81 Active 01624204 Problem Other chronic pain G89.29 Active 28826359 Problem Mood disorder F39 Active 26475719 Problem Unspecified mental disorder due to known physiological condition F09 Active 723472239 Problem Anxiety F41.9 Active 61147234 ALLERGIES Unknown Allergies SOCIAL HISTORY No smoking Hx information available PLAN OF CARE VITAL SIGNS MEDICATIONS Unknown Medications RESULTS No Results PROCEDURES No Known procedures IMMUNIZATIONS No Known Immunizations
--- OUTSIDE RECORDS SUMMARY | 2018-07-01 14:22 | XMS REPORT ---
Author Author JENIFER BRAY Organization [facility] Address [address] [place] [address] Care Team Providers Care Tangible Personal Property Appraiser Name Role Phone JENIFER BRAY Unavailable PROBLEMS Type Condition ICD9-CM Code MOD75-FQ Code Onset Dates Condition Status SNOMED Code Problem Dementia with behavioral disturbance, unspecified dementia type F03.91 Active 4479796495390 Problem Unsteady gait R26.81 Active 77531082 Problem Other chronic pain G89.29 Active 91408254 Problem Mood disorder F39 Active 23252693 Problem Unspecified mental disorder due to known physiological condition F09 Active 096486088 Problem Anxiety F41.9 Active 04418607 ALLERGIES No Information SOCIAL HISTORY Never Assessed PLAN OF CARE VITAL SIGNS MEDICATIONS Medication Instructions Dosage Frequency Start Date End Date Duration Status Keppra 500 MG Orally 2 times a day 3 capsules 12h Active RESULTS No Results PROCEDURES No Known procedures IMMUNIZATIONS No Known Immunizations MEDICAL (GENERAL) HISTORY Type Description Date Medical History Toxoplasmosis Medical History migraine Medical History dementia Medical History depression Medical History alzheimers disease Medical History epilepsy Surgical History cholecystectomy Surgical History appendectomy Surgical History 27 brain surgeries including shunt, [place] Surgical History neck fusion 09/26, 09/28 Surgical History right hand surgery Hospitalization History surgeries Hospitalization History seizures 12/2015
--- OUTSIDE RECORDS SUMMARY | 2018-07-01 14:22 | XMS REPORT ---
Author Author JENIFER BRAY [facility] Address [address] [place] [address] Care Team Providers Care Hotel Service Supervisor Name Role Phone JENIFER BRAY Unavailable PROBLEMS Type Condition ICD9-CM Code [id number] Code Onset Dates Condition Status SNOMED Code Problem Dementia with behavioral disturbance, unspecified dementia type F03.91 Active 2300752743717 Problem Unsteady gait R26.81 Active 33398881 Problem Other chronic pain G89.29 Active 04513049 Problem Mood disorder F39 Active 89567271 Problem Unspecified mental disorder due to known physiological condition F09 Active 731787813 Problem Anxiety F41.9 Active 33222615 ALLERGIES Unknown Allergies SOCIAL HISTORY No smoking [...]
--- OUTSIDE RECORDS SUMMARY | 2018-07-01 14:22 | XMS REPORT ---
Author Author JENIFER BRAY Organization [facility] Address [address] [place] [address] Care Team Providers Care [employer] Storage Architect Name Role Phone KATARINA JENIFER Unavailable PROBLEMS Type Condition ICD9-CM Code [id number] Code Onset Dates Condition Status SNOMED Code Problem Other chronic pain G89.29 Active 39194615 Problem Mood disorder F39 Active 79555215 Problem Major depressive disorder, recurrent, moderate F33.1 Active 29579600 Problem Degenerative brain disorder G31.9 Active 93111073 Problem Unsteady gait R26.81 Active 97986136 Problem Anxiety F41.9 Active 00001105 Problem Dementia with behavioral disturbance, unspecified dementia type F03.91 Active 5633708146582 Problem Unspecified mental disorder due to known physiological condition F09 Active 940656932 ALLERGIES No Information SOCIAL HISTORY Never Assessed PLAN OF CARE VITAL SIGNS MEDICATIONS Medication Instructions Dosage Frequency Start Date End Date Duration Status Clonazepam 1 MG Orally Twice a day 1 tablet 12h Sep, 28 days Active Clayton 10-325 MG Orally every 6 hrs 1 tablet as needed 6h December, 28 days Active RESULTS No Results PROCEDURES No Known procedures IMMUNIZATIONS No Known Immunizations MEDICAL (GENERAL) HISTORY Type Description Date Medical History Toxoplasmosis Medical History migraine Medical History dementia Medical History depression Medical History alzheimers disease Medical History epilepsy Medical History COPD Surgical History cholecystectomy Surgical History appendectomy Surgical History 27 brain surgeries including shunt, [place] Surgical History neck fusion 09/26, 09/28 Surgical History right hand surgery Hospitalization History surgeries Hospitalization History seizures 12/2015
--- OUTSIDE RECORDS SUMMARY | 2018-07-01 14:22 | XMS REPORT ---
Author Author JENIFER BRAY Organization [facility] Address [address] [place] [address] Care Team Providers Care Hide Sorter Name Role Phone KATARINA JENIFER Unavailable PROBLEMS Type Condition ICD9-CM Code [id number] Code Onset Dates Condition Status SNOMED Code Problem Dementia with behavioral disturbance, unspecified dementia type F03.91 Active 0799948447789 Problem Unsteady gait R26.81 Active 69818414 Problem Other chronic pain G89.29 Active 79561706 Problem Mood disorder F39 Active 16147165 Problem Unspecified mental disorder due to known physiological condition F09 Active 302397947 Problem Anxiety F41.9 Active 97173455 ALLERGIES Unknown Allergies SOCIAL HISTORY No smoking Hx information available PLAN OF CARE VITAL SIGNS MEDICATIONS Medication Instructions Dosage Frequency Start Date End Date Duration Status Economy 10-325 MG Orally every 6 hrs 1 tablet as needed 6h Aug, 28 days Active Omeprazole 20 mg Orally One capsule by mouth prior to meals 1 drop into affected ear 30 days Active Lexapro 20 mg Orally Once a day 1 tablet 24h 30 days Active Venlafaxine HCl ER 225 MG Orally Once a day 1 tablet with food 24h 30 days Active Amitriptyline HCl 25 MG Orally Once a day at bedtime prn sleep 1 tablet Apr, 30 days Active RESULTS No Results PROCEDURES No Known procedures IMMUNIZATIONS No Known Immunizations
--- OUTSIDE RECORDS SUMMARY | 2018-07-01 14:22 | XMS REPORT ---
Author Author ESTEPHANIA IVAN Organization [facility] Address [address] [place] [address] Care Team Providers Care Newspaper Columnist Name Role Phone ESTEPHANIA IVAN Unavailable PROBLEMS Type Condition ICD9-CM Code CPW52-KD Code Onset Dates Condition Status SNOMED Code Problem Unsteady gait R26.81 Active 82541866 Problem Dementia with behavioral disturbance, unspecified dementia type F03.91 Active 3883036724493 Problem Unspecified mental disorder due to known physiological condition F09 Active 934700973 Problem Mood disorder F39 Active 52788811 Problem Other chronic pain G89.29 Active 52328040 Problem Anxiety F41.9 Active 45887080 Problem PTSD (post-traumatic stress disorder) F43.10 Active 06688620 Problem Depressive disorder, not elsewhere classified F32.9 Active 13800305 Problem Degenerative brain disorder G31.9 Active 22110950 Problem Major depressive disorder, recurrent, moderate F33.1 Active 27265812 Problem Other chronic pain G89.29 Active 55114722 Problem Sleep apnea, unspecified type G47.30 Active 97273369 ALLERGIES No Information ENCOUNTERS Encounter Location Date Diagnosis [facility] [address] [address] Feb, [facility] [id number] [place] [address]31- 7904 Feb, [facility] [id number] [place] [address] 26487- 2997 Jan, [facility] [id number] [place] [address] 03883- 6405 Jan, Pain in right knee M25.561 [facility] [id number] [place] [address] 72101- 4431 Jan, [place] [address] [address] Jan, [facility] [id number] [place] [address] 24416- 7691 Jan, [facility] [id number] [address] December, Other chronic pain G89.29 [facility] [address] [place] [address] December, Pain in left knee M25.562 ; Pain in right leg M79.604 ; Other chronic pain G89.29 ; Localized edema R60.0 and PTSD (post-traumatic stress disorder) F43.10 [facility] [id number] [place] [address] 83533- 4445 December, [facility] [id number] [place] [address] 67233- 9249 December, PTSD (post-traumatic stress disorder) F43.10 [facility] [id number] [place] [address] 17352- 4899 December, [facility] [id number] [place] [address] 05399- 5514 December, [facility] [id number] [place] [address] 18080- 9193 December, Depressive disorder, not elsewhere classified F32.9 and Cognitive change R41.89 [facility] [id number] [place] [address] 90401- 2585 Nov, Major depressive disorder, recurrent, moderate F33.1 [facility] [id number] [place] [address] 48703- 8913 Nov, [facility] [id number] [place] [address] 43489- 1733 Nov, [facility] [id number] [place] [address] 11489- 0080 Nov, [facility] [id number] [address] Nov, [facility] [address] [address] 9[address] Nov, Mood disorder F39 [facility] [id number] [address] 6772 Nov, Depressive disorder, not elsewhere classified F32.9 and Cognitive change R41.89 [facility] [address] [address] 5914 Nov, [facility] [id number] [address] Nov, [facility] [address] [place] [id number] Oct, Tear of skin of plantar aspect of right foot, initial encounter S91.311A [facility] [address] [address]46 Oct, [facility] [id number] [address] Oct, [facility] [id number] [id number] Oct, [facility] [id number] [id number] Oct, [facility] [id number] [id number] Sep, [facility] [address] [id number] [id number] 14 Sep, 2017 [facility] [id number] [place] [id number] 13 Sep, 2017 [facility] [id number] [place] [id number] 09 Sep, 2017 [facility] [id number] [address] 12[address] Sep, [facility] [id number] [address] Sep, Other chronic pain G89.29 and Pain in left knee M25.562 [facility] [address] [address] Sep, [facility] [address] [place] [id number] Sep, Plantar fasciitis of left foot M72.2 and Pain in right knee M25.561 [facility] [id number] [place] [id number] Aug, [facility] [id number] [place] [address] 82272- 0264 Aug, [facility] [id number] [place] [address] 00715- 6870 Aug, [facility] [id number] [place] [address] 52058- 9377 Aug, Chronic daily headache R51 [facility] [address] [place] [address] 84102- 3539 Aug, [facility] [address] [id number] Aug, Edema, unspecified type R60.9 ; Weight gain R63.5 and Sleep apnea, unspecified type G47.[address] [facility] [address] [id number] Jul, Acute pain of left knee M25.562 and Plantar fasciitis of left foot M72.2 [facility] [address] [address] Jul, [facility] [address] [place] [id number] Jul, Plantar fasciitis of left foot M72.2 and Chronic daily headache R51 [facility] [id number] [place] [id number] Jul, [facility] [id number] [id number] Jun, [facility] [address] [address] 2546 Jun, [facility] [id number] [place] [id number] Jun, [facility] [id number] [id number] Jun, [facility] [id number] [id number] May, [facility] [id number] [place] [id number] May, [facility] [address] [address]- 9426 May, Stress incontinence of urine N39.3 [facility] [id number] [id number] May, [facility] [place] [address] [place] [id number] May, Encounter for examination for admission to snf Z02.2 ; Toxoplasmosis B58.9 ; Seizures R56.9 ; Major depressive disorder, recurrent, moderate F33.1 ; Degenerative brain disorder G31.9 and Unsteady gait R26.81 [facility] [address] [address] May, [facility] [address] [address] [address] May, Mood disorder F39 [facility] [address] [address]- [address] May, [facility] [address] [address]- 6296 Apr, [facility] [id number] [address]- 2756 Mar, [facility] [place] [facility] [address] [id number] [place] [address]- 0086 Mar, [facility] [place] [facility] [address] [id number] [place] [address]- 5201 Mar, [facility] [place] [facility] [address] [id number] [place] [address] Mar, [facility] [place] [facility] [address] [id number] [place] [address]- 0113 Mar, [facility] [place] [facility] [address] [id number] [place] [address]- 5729 Mar, Stress incontinence of urine N39.3 [facility] [id number] [place] [address], [place] [id number] Mar, [facility] [place] [facility] [address] [id number] [place] [address]- 8020 Feb, [facility] [place] [facility] [address] [id number] [place] [address]- 8051 Feb, [facility] [place] [facility] [address] [id number] [place] [address]- 0413 Feb, [facility] [place] [facility] [address] [id number] [place] [address]- 0453 Feb, [facility] [place] [facility] [address] [id number] [place] [address]- 8230 Feb, [facility] [place] [facility] [address] [id number] [place] [address]- 3944 Feb, [facility] [place] [facility] [address] [id number] [place] [address]- 5213 Feb, [facility] [place] [facility] [address] [id number] [place] [address] Jan, [facility] [place] [facility] [address] [id number] [place] [address]- 1881 Jan, [facility] [place] [facility] [address] [id number] [address]- 3283 Jan, [facility] [address] [address]- 1085 Jan, [facility] [id number] [place] [address] 34698- 9908 Jan, [facility] [address] [address]- 4348 Jan, [facility] [id number] [place] [address] 84815- 1131 Jan, [facility] [id number] [place] [address] 47189- 4601 Jan, General weakness R53.1 and Dementia with behavioral disturbance, unspecified dementia type F03.91 [facility] [id number] [place] [address] 86573- 0455 December, [facility] [id number] [place] [address] 36284- 4263 December, Other chronic pain G89.29 [facility] [id number] [place] [address] 49722- 5353 December, [facility] [id number] [place] [address] 78034- 8779 December, Unsteady gait R26.81 ; Generalized weakness R53.1 ; Unspecified mental disorder due to known physiological condition F09 and Generalized headaches R51 [facility] [address] [address]- 45[address] December, [facility] [address] [address]- 5070 Nov, Anxiety F41.9 [facility] [id number] [place] [address] 45897- 7972 Nov, Mood disorder F39 [facility] [address] [address]- 4437 Oct, [place] [id number] [place] [address] 32353- 3288 Oct, Anxiety F41.9 [facility] [id number] [place] [address] 35679- 8583 Oct, Other chronic pain G89.29 [facility] [id number] [place] [address] 10172- 6896 Sep, Other chronic pain G89.29 ; Pain in left knee M25.562 ; Pain in right knee M25.561 and Anxiety F41.9 [facility] [id number] [place] [address] 76424- 1484 Sep, MDD (major depressive disorder), recurrent episode, mild F33.0 ; Degenerative brain disorder G31.9 and Other long goods drier (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 Z79.899 [facility] [id number] [place] [address] 19416- 6061 Sep, [facility] [id number] [place] [address] 45582- 3928 Sep, [facility] [id number] [place] [address] 26840- 2684 Sep, Mood disorder F39 ; Pain of left leg M79.605 and Pain in right leg M79.604 [facility] [id number] [place] [address] 42116- 8066 Sep, Seizures R56.9 [facility] [id number] [place] [address] 05579- 1199 Sep, [facility] [id number] [place] [address] 40350- 0313 Sep, [facility] [id number] [place] [address] 53286- 7379 Sep, [facility] [id number] [place] [address] 97784- 3043 Aug, Bronchitis J40 [facility] [id number] [place] [address] 00091- 1045 Aug, Bronchitis J40 and Encounter for drug screening Z02.83 [facility] [id number] [place] [address] 63793- 7868 Aug, [facility] [id number] [place] [address] 89594- 0687 Aug, Seizures R56.9 [facility] [id number] [place] [address] 58344- 3366 Aug, Seizures R56.9 [place] [address] [address]20- 7836 Aug, Major depressive disorder, recurrent, moderate F33.1 and Seizures R56.9 [place] [id number] [place] [address] 89660- 7601 Aug, [facility] [id number] [place] [address] 37567- 7656 Aug, [facility] [id number] [place] [address] 88863- 8971 Aug, Major depressive disorder, recurrent, moderate F33.1 and Seizures R56.9 [place] [id number] [place] [address] 70854- 7089 Jul, Major depressive disorder, recurrent, moderate F33.1 and Degenerative brain disorder G31.9 [facility] [id number] [place] [address] 61715- 7886 Jul, Seizures R56.9 [facility] [id number] [place] [address] 64632- 3006 Apr, [facility] [id number] [place] [address] 24566- 3878 Apr, Major depressive disorder, recurrent, moderate F33.1 ; Anxiety F41.9 and Degenerative brain disorder G31.9 [place] [id number] [address]- 2429 Apr, Mood disorder F39 [facility] [address] [facility] [id number] [address]- 7172 Apr, Arthritis M19.90 [place] [address] [facility] [id number] [address]- 9567 Mar, Arthritis M19.90 ; Degenerative brain disorder G31.9 and Nonintractable generalized idiopathic epilepsy without status epilepticus G40.309 [place] [address] [facility] [id number] [place] [address]- 0677 Feb, IMMUNIZATIONS No Known Immunizations SOCIAL HISTORY Never Assessed REASON FOR VISIT Refill request PLAN OF CARE VITAL SIGNS MEDICATIONS Medication Instructions Dosage Frequency Start Date End Date Duration Status [place] 10-325 MG Orally 3 times a day 1 tablet 8h Aug, 28 days Active RESULTS No Results PROCEDURES No Known procedures INSTRUCTIONS MEDICATIONS ADMINISTERED No Known Medications MEDICAL (GENERAL) HISTORY Type Description Date Medical History Toxoplasmosis Medical History migraine Medical History dementia Medical History depression Medical History alzheimers disease Medical History epilepsy Medical History COPD Surgical History cholecystectomy Surgical History appendectomy Surgical History 27 brain surgeries including shunt, [place] Surgical History neck fusion 09/26, 09/28 Surgical History right hand surgery Hospitalization History surgeries Hospitalization History seizures 12/2015
--- OUTSIDE RECORDS SUMMARY | 2018-07-01 14:22 | XMS REPORT ---
Author Author JENIFER BRAY Organization [facility] Address [address] [place] [address] Care Team Providers Care Radiosonde Operator Name Role Phone JENIFER BRAY Unavailable PROBLEMS Type Condition ICD9-CM Code [id number] Code Onset Dates Condition Status SNOMED Code Problem Unspecified mental disorder due to known physiological condition F09 Active 899671167 Problem Major depressive disorder, recurrent, moderate F33.1 Active 89422475 Problem Dementia with behavioral disturbance, unspecified dementia type F03.91 Active 2822044507860 Problem Mood disorder F39 Active 56659210 Problem Other chronic pain G89.29 Active 13361017 Problem Anxiety F41.9 Active 65363198 Problem Unsteady gait R26.81 Active 35894175 Problem History of brain shunt Z98.2 Active 740178651 Problem PTSD (post-traumatic stress disorder) F43.10 Active 54922714 Problem Sleep apnea, unspecified type G47.30 Active 53645929 Problem Degenerative brain disorder G31.9 Active 58531998 Problem Depressive disorder, not elsewhere classified F32.9 Active 10596642 Problem Other chronic pain G89.29 Active 57985252 ALLERGIES No Information ENCOUNTERS Encounter Location Date Diagnosis [facility] [address] [facility] [id number], [place] [address] Feb, [facility] [id number] [place] [address]6567- 0034 Feb, [facility] [address] [place] [id number] Jan, Dementia with behavioral disturbance, unspecified dementia type F03.91 ; Other chronic pain G89.29 and Plantar fasciitis M72.2 [facility] [address] [place] [id number] Jan, Daily headache R51 ; History of brain shunt Z98.2 ; Plantar fasciitis of left foot M72.2 ; Pain in right knee M25.561 and Pain in left knee M25.562 [facility] [address], [place] [address] Jan, [facility] [address], [place] [address] Jan, Pain in right knee M25.561 [facility] [address], [place] [address] 05 Jan, 2018 [facility] [address], [place] [address] Jan, [facility] [id number] [place] [address]2293- 8323 Jan, [facility] [address], [place] [address] December, Other chronic pain G89.29 [facility] [address] [place] [id number] December, Pain in left knee M25.562 ; Pain in right leg M79.604 ; Other chronic pain G89.29 ; Localized edema R60.0 and PTSD (post-traumatic stress disorder) F43.10 [facility] [address], [place] [address] December, [facility] [address], [place] [address] December, PTSD (post-traumatic stress disorder) F43.10 [facility] [address], [place] [address] December, [facility] [address], [place] [address] December, [facility] [address], [place] [address] December, Depressive disorder, not elsewhere classified F32.9 and Cognitive change R41.89 [facility] [address] [id number] [address] 30 Nov, 2017 Major depressive disorder, recurrent, moderate F33.1 [facility] [address] [place] [address] 01129- 4133 Nov, [facility] [id number] [place] [address] 34531- 8010 Nov, [facility] [id number] [place] [address] 59953- 4802 Nov, [facility] [id number] [place] [address] 57598- 7397 Nov, [facility] [id number] [place] [address] 17706- 8811 Nov, Mood disorder F39 [facility] [id number] [place] [address] 04125- 2504 Nov, Depressive disorder, not elsewhere classified F32.9 and Cognitive change R41.89 [facility] [address] [place] [address] 26308- 2382 Nov, [facility] [address] [place] [address] 29743- 2566 Nov, [facility] [address] [place] [id number] Oct, Tear of skin of plantar aspect of right foot, initial encounter S91.311A [facility] [address], [place] [address] Oct, [facility] [id number] [address] Oct, [facility] [id number] [place] [address] [id number] Oct, [facility] [id number] [place] [address] [id number] Oct, [facility] [id number] [place] [address] [id number] Sep, [facility] [id number] [id number] Sep, [facility] [id number] [place] [address] [id number] Sep, [facility] [id number] [id number] Sep, [facility] [address] [place] [address] 19588- 6726 Sep, [facility] [address] [place] [address] 37037- 4786 Sep, Other chronic pain G89.29 and Pain in left knee M25.562 [facility] [address], [place] [address] Sep, [facility] [address] [place] [id number] Sep, Plantar fasciitis of left foot M72.2 and Pain in right knee M25.561 [facility] [id number] [id number] Aug, [facility] [address], [place] [address] 116[address] Aug, [facility] [address], [place] [address] Aug, [facility] [address], [place] [address] Aug, Chronic daily headache R51 [facility] [id number], [place] [address] Aug, [facility] [address] [place] [id number] Aug, Edema, unspecified type R60.9 ; Weight gain R63.5 and Sleep apnea, unspecified type G47.30 [facility] [address] [place] [id number] Jul, Acute pain of left knee M25.562 and Plantar fasciitis of left foot M72.2 [facility] [address], [place] [address] Jul, [facility] [id number] Jul, Plantar fasciitis of left foot M72.2 and Chronic daily headache R51 [facility] [address] [id number] [id number] Jul, [facility] [id number] [place] [address] [id number] Jun, [facility] [address], [place] [address] Jun, [facility] [id number] [place] [address] [id number] Jun, [facility] [id number] [place] [address] [id number] Jun, [facility] [id number] [place] [address] [id number] May, [facility] [id number] [place] [address] [id number] May, [facility] [address], [place] [address] May, Stress incontinence of urine N39.3 [facility] [place] [id number] [place] [address] [id number] May, [facility] [address] [id number] May, Encounter for examination for admission to [facility] Z02.2 ; Toxoplasmosis B58.9 ; Seizures R56.9 ; Major depressive disorder, recurrent, moderate F33.1 ; Degenerative brain disorder G31.9 and Unsteady gait R26.81 [facility] [address], [place] [address] May, [facility] [place] [facility] [address] [facility] [id number] [place] [address]- [address] May, Mood disorder F39 [facility] [place] [facility] [address] [id number] [place] [address]- 1465 May, [facility] [place] [facility] [address] [id number] [place] [address]- 5780 Apr, [facility] [place] [facility] [id number] [place] [address], [place] [address]- 6605 Mar, [facility] [place] [facility] [address] [id number] [place] [address]- 7616 Mar, [facility] [place] [facility] [id number] [place] [address], [place] [address]- 2695 Mar, [facility] [place] [facility] [id number] [place] [address]- 3993 Mar, [facility] [place] [facility] [address] [facility] [id number] [place] [address] 00733- 7199 Mar, [facility] [place] [facility] [id number], [place] [address] 6924 Mar, Stress incontinence of urine N39.3 [facility] [id number] [place] [address] [id number] Mar, [facility] [place] [facility] [address] [facility] [id number], [place] [address]- 9203 Feb, [facility] [place] [facility] [address] [facility] [id number], [place] [address]- 9327 Feb, [facility] [place] [facility] [address] [facility] [id number], [place] [address]- 3433 Feb, [facility] [place] [facility] [address] [facility] [id number], [place] [address]- 8290 Feb, [facility] [place] [facility] [address] [facility] [id number], [place] [address]- 5896 Feb, [facility] [place] [facility] [address] [facility] [id number], [place] [address]- 4434 Feb, [facility] [address], [place] [address]- 1809 Feb, [facility] [address], [place] [address]- 1254 Jan, [facility] [address], [place] [address]- 0218 Jan, [facility] [address], [place] [address]- 5407 Jan, [facility] [address], [place] [address]- 8993 Jan, [facility] [address], [place] [address]- 0676 Jan, [facility] [address], [place] [address]- 7141 Jan, [facility] [address], [place] [address]- 6757 Jan, [facility] [address], [place] [address]- 4127 Jan, General weakness R53.1 and Dementia with behavioral disturbance, unspecified dementia type F03.91 [facility] [address], [place] [address]- 6514 December, [facility] [address], [place] [address]- 8367 December, Other chronic pain G89.29 [facility] [address], [place] [address]- 7369 December, [facility] [address], [place] [address]- 3091 December, Unsteady gait R26.81 ; Generalized weakness R53.1 ; Unspecified mental disorder due to known physiological condition F09 and Generalized headaches R51 [facility] [address], [place] [address]- 5917 December, [facility] [id number] [place] [address] 28001- 3370 Nov, Anxiety F41.9 [facility] [address] [place] [address] 25815- 9884 Nov, Mood disorder F39 [facility] [id number] [place] [address] 16907- 4799 Oct, [facility] [id number] [place] [address] 06605- 1328 Oct, Anxiety F41.9 [facility] [id number] [place] [address] 19077- 1181 Oct, Other chronic pain G89.29 [facility] [id number] [place] [address] 68146- 3594 Sep, Other chronic pain G89.29 ; Pain in left knee M25.562 ; Pain in right knee M25.561 and Anxiety F41.9 [facility] [id number] [place] [address] 34157- 6250 Sep, MDD (major depressive disorder), recurrent episode, mild F33.0 ; Degenerative brain disorder G31.9 and 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 [facility] [id number] [place] [address] 57702- 0264 Sep, [facility] [id number] [place] [address] 39139- 7630 Sep, [facility] [id number] [place] [address] 32734- 2653 Sep, Mood disorder F39 ; Pain of left leg M79.605 and Pain in right leg M79.604 [facility] [address] [place] [address] 24357- 0172 Sep, Seizures R56.9 [facility] [address], [place] [address] 2546 08 Sep, 2016 [facility] [id number] [place] [address] 67991- 0056 Sep, [facility] [id number] [place] [address] 64859 2546 Sep, [facility] [id number] [place] [address] 40169 2546 Aug, Bronchitis J40 [facility] [id number] [place] [address] 11028 2546 Aug, Bronchitis J40 and Encounter for drug screening Z02.83 [facility] [id number] [place] [address] 09054 2546 Aug, [facility] [id number] [place] [address] 81674- 8907 Aug, Seizures R56.9 [facility] [id number] [place] [address] 70233 2546 Aug, Seizures R56.9 [facility] [id number] [place] [address] 51003 2546 Aug, Major depressive disorder, recurrent, moderate F33.1 and Seizures R56.9 [facility] [address] [place] [address] 92921 2546 Aug, [facility] [id number] [place] [address] 04375 2546 Aug, [facility] [address] [place] [address] 73932 2546 Aug, Major depressive disorder, recurrent, moderate F33.1 and Seizures R56.9 [facility] [address], [place] [address] 2546 Jul, Major depressive disorder, recurrent, moderate F33.1 and Degenerative brain disorder G31.9 [address], [place] [address]- 6381 Jul, Seizures R56.9 [id number] [place] [address] 25540- 0869 Apr, [address], [place] [address]- 8697 Apr, Major depressive disorder, recurrent, moderate F33.1 ; Anxiety F41.9 and Degenerative brain disorder G31.9 [address], [place] [address]- 9017 Apr, Mood disorder F39 [address] [place] [address] 11964- 1849 Apr, Arthritis M19.90 [address], [place] [address]- 0566 Mar, Arthritis M19.90 ; Degenerative brain disorder G31.9 and Nonintractable generalized idiopathic epilepsy without status epilepticus G40.309 [address], [place] [address]- 3800 Feb, IMMUNIZATIONS No Known Immunizations SOCIAL HISTORY Never Assessed REASON FOR VISIT Schedule appt PLAN OF CARE VITAL SIGNS MEDICATIONS Unknown Medications RESULTS No Results PROCEDURES No Known procedures INSTRUCTIONS MEDICATIONS ADMINISTERED No Known Medications MEDICAL (GENERAL) HISTORY Type Description Date Medical History Toxoplasmosis Medical History migraine Medical History dementia Medical History depression Medical History alzheimers disease Medical History epilepsy Medical History COPD Surgical History cholecystectomy Surgical History appendectomy Surgical History 27 brain surgeries including shunt, [place] Surgical History neck fusion 09/26, 09/28 Surgical History right hand surgery Hospitalization History surgeries Hospitalization History seizures 12/2015
--- OUTSIDE RECORDS SUMMARY | 2018-07-01 14:23 | XMS REPORT ---
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 Supervisor Name Role Phone JENIFER BRAY Unavailable PROBLEMS Type Condition ICD9-CM Code SBQ17-SR Code Onset Dates Condition Status SNOMED Code Problem Other chronic pain G89.29 Active 01408390 Problem Unspecified mental disorder due to known physiological condition F09 Active 555544327 Problem Anxiety F41.9 Active 40373220 Problem Mood disorder F39 Active 34089558 Problem Other chronic pain G89.29 Active 18625141 Problem Sleep apnea, unspecified type G47.30 Active 92204120 Problem Dementia with behavioral disturbance, unspecified dementia type F03.91 Active 2508990063978 Problem Unsteady gait R26.81 Active 29132502 Problem Degenerative brain disorder G31.9 Active 63641831 Problem Major depressive disorder, recurrent, moderate F33.1 Active 36734586 ALLERGIES No Information ENCOUNTERS Encounter Location Date Diagnosis [facility] [address] [facility] [id number] [address] Oct, [facility] [facility] [address] [id number] [id number] Oct, [facility] [address] [id number] [id number] Oct, [facility] [place] [facility] [address] [id number] [id number] Sep, [facility] [facility] [address] [id number] [id number] Sep, [facility] [facility] [address] [id number][place] [id number] Sep, [facility] [address] [id number] [id number] Sep, [facility] [address]65100[place], [place] [address] Sep, [facility] [id number] [place] [address] Sep, Other chronic pain G89.29 and Pain in left knee M25.562 [facility] [address] [place] [address]- 8636 Sep, [facility] [address] [place] [address] Sep, Plantar fasciitis of left foot M72.2 and Pain in right knee M25.561 [facility] [id number] [place] [id number] Aug, [facility] [address] [place] [address]20- 1011 Aug, [facility] [address] [place] [address]88- 0318 Aug, [facility] [address] [place] [address] 98114- 2807 Aug, Chronic daily headache R51 [facility] [address] [place] [address]87- 4434 Aug, [facility] [address] [place] [id number] Aug, Edema, unspecified type R60.9 ; Weight gain R63.5 and Sleep apnea, unspecified type G47.30 [facility] [address] [place] [id number] Jul, Acute pain of left knee M25.562 and Plantar fasciitis of left foot M72.2 [facility] [address] [place] [address]13- [address]356 Jul, [facility] [address] [place] [id number] Jul, Plantar fasciitis of left foot M72.2 and Chronic daily headache R51 [facility] [address] [id number] [id number] Jul, [facility] [id number] [id number] Jun, [facility] [address]100[place], [place] [address] Jun, [facility] [id number] [id number] Jun, [facility] [id number][place] [id number] Jun, [facility] [id number] [place] [id number] May, [facility] [id number] [id number] May, [facility] [address], [place] [address] May, Stress incontinence of urine N39.3 [facility] [id number] [id number] May, [facility] [address] [place] [id number] May, Encounter for examination for admission to fpc Z02.2 ; Toxoplasmosis B58.9 ; Seizures R56.9 ; Major depressive disorder, recurrent, moderate F33.1 ; Degenerative brain disorder G31.9 and Unsteady gait R26.81 [facility] [address] [id number] [address] May, [facility] [address] [id number] [address] May, Mood disorder F39 [facility] [address] [id number] [address] May, [facility] [address] [id number] [address] Apr, [facility] [place] [facility] [address] [id number] [place] [address] Mar, [facility] [place] [facility] [address] [id number] [place] [address] Mar, [facility] [place] [facility] [address] [id number] [place] [address] Mar, [facility] [place] [facility] [address] [id number] [place] [address] Mar, [facility] [place] [facility] [address] [id number] [place] [address] Mar, [facility] [place] [facility] [address] [id number] [place] [address] Mar, Stress incontinence of urine N39.3 [facility] [address] [id number] [place] [id number] Mar, [facility] [place] [facility] [address] [id number] [place] [address] Feb, [facility] [place] [facility] [address] [id number] [place] [address] Feb, [facility] [place] [facility] [address] [id number] [place] [address] 46[address] Feb, [facility] [place] [facility] [address] [id number] [place] [address]- [address] Feb, [facility] [place] [facility] [address] [id number] [place] [address]- [address] Feb, [facility] [place] [facility] [address] [id number] [place] [address] 86[address] Feb, [facility] [place] [facility] [address] [id number] [place] [address] 94[address] Feb, [facility] [place] [facility] [address] [id number] [place] Jan, [facility] [place] [facility] [address] [id number], [place] [address] Jan, [facility] [address]65100[place], [place] [address] Jan, [facility] [address] [place] [address] 06359- 1364 Jan, [facility] [address]65100[place], [place] [address] Jan, [facility] [id number] [place] [address] 76103- 8725 Jan, [facility] [address] [place] [address] 63856- 8688 Jan, [facility] [id number] [place] [address] 14916- 0888 Jan, General weakness R53.1 and Dementia with behavioral disturbance, unspecified dementia type F03.91 [facility] [address] [place] [address] 69001- 8186 December, [facility] [address]65[address], [place] [address] December, Other chronic pain G89.29 [facility] [id number] [place] [address] 61788- 5427 December, [facility] [address], [place] [address] December, Unsteady gait R26.81 ; Generalized weakness R53.1 ; Unspecified mental disorder due to known physiological condition F09 and Generalized headaches R51 [facility] [address]65100[place], [place] [address] December, [facility] [id number] [place] [address] 07013- 8300 Nov, Anxiety F41.9 [facility] [address]65[address], [place] [address] Nov, Mood disorder F39 [place] [address]65[address], [place] [address] Oct, [facility] [id number] [place] [address] 03948- 5916 Oct, Anxiety F41.9 [facility] [address] [place] [address] 97741 2541 Oct, Other chronic pain G89.29 [facility] [id number] [place] [address] 96272- 5401 Sep, Other chronic pain G89.29 ; Pain in left knee M25.562 ; Pain in right knee M25.561 and Anxiety F41.9 [facility] [id number] [place] [address] 95886- 8342 Sep, MDD (major depressive disorder), recurrent episode, mild F33.0 ; Degenerative brain disorder G31.9 and Other half-way (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 Z79.899 [facility] [address] [place] [address] 89803- 4689 Sep, [facility] [id number] [place] [address] 26960- 9039 Sep, [facility] [address] [place] [address] 56161- 4081 Sep, Mood disorder F39 ; Pain of left leg M79.605 and Pain in right leg M79.604 [facility] [address] [place] [address] 33968- 2811 14 Sep, 2016 Seizures R56.9 [facility] [id number] [place] [address] 19148- 4506 Sep, [facility] [id number] [place] [address] 38044- 0359 Sep, [facility] [address] [place] [address] 05756- 6028 Sep, [facility] [address] [place] [address] 69015- 8129 Aug, Bronchitis J40 [facility] [address] [address]- 2886 Aug, Bronchitis J40 and Encounter for drug screening Z02.83 [facility] [id number] [place] [address] 69245- 5046 Aug, [facility] [id number] [place] [address] 59666- 6239 Aug, Seizures R56.9 [facility] [id number] [place] [address] 98360- 6408 Aug, Seizures R56.9 [facility] [id number] [place] [address] 79406- 9862 Aug, Major depressive disorder, recurrent, moderate F33.1 and Seizures R56.9 [facility] [id number] [place] [address] 21918- 2433 Aug, [facility] [id number] [place] [address] 99325- 0366 Aug, [facility] [id number] [place] [address] 81197- 2762 Aug, Major depressive disorder, recurrent, moderate F33.1 and Seizures R56.9 [facility] [id number] [place] [address] 41349- 7077 Jul, Major depressive disorder, recurrent, moderate F33.1 and Degenerative brain disorder G31.9 [facility] [id number] [place] [address] 04252- 7506 Jul, Seizures R56.9 [facility] [id number] [place] [address] 50888- 5336 Apr, [facility] [id number] [place] [address] 68178- 8216 Apr, Major depressive disorder, recurrent, moderate F33.1 ; Anxiety F41.9 and Degenerative brain disorder G31.9 [place] [id number], [place] [address] 7[address] Apr, Mood disorder F39 [place] [address], [place] [address]- 9841 Apr, Arthritis M19.90 [place] [address] [place] [address] 00324- 5362 Mar, Arthritis M19.90 ; Degenerative brain disorder G31.9 and Nonintractable generalized idiopathic epilepsy without status epilepticus G40.309 [place] [address] [address]- [address] Feb, IMMUNIZATIONS No Known Immunizations SOCIAL HISTORY [...] Surgical History 27 brain surgeries including shunt, [place] Surgical History neck fusion 09/26, 09/28 Surgical History right hand surgery Hospitalization History surgeries Hospitalization History seizures 12/2015
--- OUTSIDE RECORDS SUMMARY | 2018-07-01 14:23 | XMS REPORT ---
Author Author JENIFER BRAY Organization [facility] Address [address] [place] [address] Care Team Providers Care Table Games Manager Name Role Phone JENIFER BRAY Unavailable PROBLEMS Type Condition ICD9-CM Code [id number] Code Onset Dates Condition Status SNOMED Code Problem Other chronic pain G89.29 Active 45017612 Problem Mood disorder F39 Active 01443802 Problem Major depressive disorder, recurrent, moderate F33.1 Active 68110937 Problem Degenerative brain disorder G31.9 Active 15762911 Problem Unsteady gait R26.81 Active 40947520 Problem Anxiety F41.9 Active 85434961 Problem Dementia with behavioral disturbance, unspecified dementia type F03.91 Active 7150244049347 Problem Unspecified mental disorder due to known physiological condition F09 Active 141560365 ALLERGIES No Information SOCIAL HISTORY Never Assessed [...] Surgical History 27 brain surgeries including shunt, [place] Surgical History neck fusion 09/26, 09/28 Surgical History right hand surgery Hospitalization History surgeries Hospitalization History seizures 12/2015
--- OUTSIDE RECORDS SUMMARY | 2018-07-01 14:23 | XMS REPORT ---
Author Author JENIFER BRAY Organization [facility] Address [address] [place] [address] Care Team Providers Care Switch Coupler Name Role Phone KATARINA JENIFER Unavailable PROBLEMS Type Condition ICD9-CM Code [id number] Code Onset Dates Condition Status SNOMED Code Problem Unspecified mental disorder due to known physiological condition F09 Active 598642694 Problem Major depressive disorder, recurrent, moderate F33.1 Active 74681025 Problem Dementia with behavioral disturbance, unspecified dementia type F03.91 Active 8156270625977 Problem Mood disorder F39 Active 14698609 Problem Other chronic pain G89.29 Active 14332061 Problem Anxiety F41.9 Active 23397864 Problem Unsteady gait R26.81 Active 86891417 Problem History of brain shunt Z98.2 Active 593224982 Problem PTSD (post-traumatic stress disorder) F43.10 Active 61296874 Problem Sleep apnea, unspecified type G47.30 Active 71157475 Problem Degenerative brain disorder G31.9 Active 72279101 Problem Depressive disorder, not elsewhere classified F32.9 Active 91518834 Problem Other chronic pain G89.29 Active 35351081 ALLERGIES Substance Reaction Event Type Date Status Morphine Sulfate itching Drug Allergy Feb, Active ENCOUNTERS Encounter Location Date Diagnosis [facility] [address] [id number] [address] Apr, [facility] [address] [place] [id number] Mar, History of brain shunt Z98.2 ; Depressive disorder, not elsewhere classified F32.9 ; Degenerative brain disorder G31.9 ; Unsteady gait R26.81 ; Other chronic pain G89.29 and Daily headache R51 [facility] [address] [facility] [id number] [address] Mar, PTSD (post-traumatic stress disorder) F43.10 [facility] [address] [address] Mar, [facility] [address] [place] [address] 09126- 0066 Feb, PTSD (post-traumatic stress disorder) F43.10 [facility] [address] [address] Feb, PTSD (post-traumatic stress disorder) F43.10 [facility] [address] [place] [address]13- 9033 Feb, Other chronic pain G89.29 and Pain in right knee M25.561 [address] [facility] [id number] [place] [address] 20984- 4546 Feb, PTSD (post-traumatic stress disorder) F43.10 [facility] [facility] [address] [place] [address] 82784- 0538 Feb, [facility] [address] [id number] Jan, Dementia with behavioral disturbance, unspecified dementia type F03.91 ; Other chronic pain G89.29 and Plantar fasciitis M72.[address] [facility] [address] [id number] Jan, Daily headache R51 ; History of brain shunt Z98.2 ; Plantar fasciitis of left foot M72.2 ; Pain in right knee M25.561 and Pain in left knee M25.562 [facility] [facility] [address] [address] Jan, [facility] [id number] [place] [address] 25116- 9127 Jan, Pain in right knee M25.561 [facility] [facility] [address] [address] Jan, [facility] [facility] [address] [place] [address] 35976- 4732 Jan, [facility] [address] [address] 7[address] Jan, [facility] [id number] [place] [address] 93693- 1627 December, Other chronic pain G89.29 [facility] [address] [place] [address] December, Pain in left knee M25.562 ; Pain in right leg M79.604 ; Other chronic pain G89.29 ; Localized edema R60.0 and PTSD (post-traumatic stress disorder) F43.10 [facility] [address] [place] [address] 23321- 9199 December, [facility] [id number] [place] [address] 78947- 6116 December, PTSD (post-traumatic stress disorder) F43.10 [facility] [id number] [place] [address] 37408- 3057 December, [facility] [address] [address] December, [facility] [id number] [place] [address] 61217- 8087 December, Depressive disorder, not elsewhere classified F32.9 and Cognitive change R41.89 [facility] [address] [place] [address] 70753- 3450 Nov, Major depressive disorder, recurrent, moderate F33.1 [facility] [address] [address] Nov, [facility] [id number] [place] [address] 73505- 9436 Nov, [facility] [address] [address] 7646 Nov, [facility] [id number] [place] [address] 88912- 3221 Nov, [facility] [id number] [address] [address] Nov, Mood disorder F39 [facility] [address] [address] Nov, Depressive disorder, not elsewhere classified F32.9 and Cognitive change R41.89 [facility] [address] [address] 0[address] Nov, [facility] [address] [address] Nov, [facility] [address] [place] [id number] Oct, Tear of skin of plantar aspect of right foot, initial encounter S91.311A [facility] [address] [address] 8[address] Oct, [facility] [address] [address] Oct, [facility] [id number] [place] [id number] Oct, [facility] [id number] [place] [id number] Oct, [facility] [id number] [place] [address] Sep, [facility] [id number] [place] [id number] Sep, [facility] [place] [facility] [id number] [place] [id number] Sep, [facility] [id number] [place] [id number] Sep, [facility] [id number] [address] 08 Sep, 2017 [facility] [id number] [place] [address]28- 3626 Sep, Other chronic pain G89.29 and Pain in left knee M25.562 [facility] [id number] [address] Sep, [facility] [address] [place] [id number] Sep, Plantar fasciitis of left foot M72.2 and Pain in right knee M25.561 [facility] [address] [id number] [id number] Aug, [facility] [id number] [address] 3[address] Aug, [facility] [address] [address] 3959 Aug, [facility] [address] [address] 1853 Aug, Chronic daily headache R51 [facility] [address] [address] Aug, [facility] [address] [place] [id number] Aug, Edema, unspecified type R60.9 ; Weight gain R63.5 and Sleep apnea, unspecified type G47.30 [facility] [address] [place] [id number] Jul, Acute pain of left knee M25.562 and Plantar fasciitis of left foot M72.2 [facility] [id number] [address]46 Jul, [facility] [address] [place] [id number] Jul, Plantar fasciitis of left foot M72.2 and Chronic daily headache R51 [facility] [id number] [place] [address] Jul, [facility] [address] [id number] [id number] Jun, [facility] [address] [address] 5256 Jun, [facility] [address] [id number] [id number] Jun, [facility] [id number] [place] [id number] Jun, [facility] [address] [id number] [id number] May, [facility] [id number] [place] [id number] May, [facility] [address] [place] [address] 54447- 2546 May, Stress incontinence of urine N39.3 [facility] [id number] [place] [id number] May, [facility] [address] [place] [id number] May, Encounter for examination for admission to prison Z02.2 ; Toxoplasmosis B58.9 ; Seizures R56.9 ; Major depressive disorder, recurrent, moderate F33.1 ; Degenerative brain disorder G31.9 and Unsteady gait R26.81 [facility] [address] [address]- 7516 May, [facility] [address] [address]- 8508 May, Mood disorder F39 [facility] [address] [address]- 3349 May, [facility] [address] [address]- 0385 Apr, [facility] [address] [address]- 6766 Mar, [facility] [address] [address] Mar, [facility] [place] [facility] [address] [id number] [place] [address]- 0720 Mar, [facility] [place] [facility] [address] [id number] [place] [address]- 5843 Mar, [facility] [place] [facility] [address] [id number] [place] [address]- 3685 Mar, [facility] [place] [facility] [address] [id number] [place] [address]- 2107 Mar, Stress incontinence of urine N39.3 [facility] [place] [facility] [address] [id number] [place] [id number] Mar, [facility] [place] [facility] [address] [id number] [place] [address]- 5435 Feb, [facility] [place] [facility] [address] [id number] [place] [address]- 5048 Feb, [facility] [place] [facility] [address] [id number] [place] [address]- 0720 Feb, [facility] [place] [facility] [address] [id number] [place] [address]- 6792 Feb, [facility] [place] [facility] [address] [id number] [place] [address]- 7879 Feb, [facility] [place] [facility] [address] [id number] [place] [address]- 1364 Feb, [facility] [place] [facility] [address] [id number] [place] [address]- 0503 Feb, [facility] [place] [facility] [address] [id number] [place] [address]- 7618 Jan, [facility] [place] [facility] [address] [id number] [place] [address]- 9185 Jan, [facility] [place] [facility] [address] [id number] [place] [address]- 5826 Jan, [facility] [place] [facility] [address] [address]- 6471 Jan, [facility] [address] [address]- 6219 Jan, [facility] [address] [address]- 8006 Jan, [facility] [id number] [place] [address] 27186- 9761 Jan, [facility] [id number] [place] [address] 50867- 0935 Jan, General weakness R53.1 and Dementia with behavioral disturbance, unspecified dementia type F03.91 [facility] [id number] [place] [address] 79577- 5030 December, [facility] [id number] [place] [address] 67464- 9599 December, Other chronic pain G89.29 [facility] [id number] [place] [address] 68748- 7767 December, [facility] [id number] [place] [address] 06948- 2279 December, Unsteady gait R26.81 ; Generalized weakness R53.1 ; Unspecified mental disorder due to known physiological condition F09 and Generalized headaches R51 [facility] [address] [address]- 0237 December, [facility] [address] [address]- 8263 Nov, Anxiety F41.9 [facility] [id number] [place] [address] 15450- 9913 Nov, Mood disorder F39 [facility] [address] [address]- 4782 Oct, [facility] [address] [place] [address] 03538- 2903 Oct, Anxiety F41.9 [facility] [id number] [place] [address] 75208- 5970 Oct, Other chronic pain G89.29 [facility] [id number] [place] [address] 91428- 5498 Sep, Other chronic pain G89.29 ; Pain in left knee M25.562 ; Pain in right knee M25.561 and Anxiety F41.9 [facility] [id number] [place] [address] 79343- 1753 Sep, MDD (major depressive disorder), recurrent episode, mild F33.0 ; Degenerative brain disorder G31.9 and Other retirement (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 Z79.899 [facility] [id number] [place] [address] 96019- 6500 Sep, [facility] [address] [address]- 2803 Sep, [facility] [id number] [place] [address] 53837- 1269 Sep, Mood disorder F39 ; Pain of left leg M79.605 and Pain in right leg M79.604 [facility] [id number] [place] [address] 02059- 9819 14 Sep, 2016 Seizures R56.9 [facility] [id number] [place] [address] 70521- 7468 Sep, [facility] [id number] [place] [address] 35312- 2651 Sep, [facility] [id number] [place] [address] 30368- 9483 Sep, [facility] [id number] [place] [address] 36128- 0994 Aug, Bronchitis J40 [facility] [address] [address]- 3545 Aug, Bronchitis J40 and Encounter for drug screening Z02.83 [facility] [id number] [place] [address] 55867- 1172 Aug, [facility] [id number] [place] [address] 98692- 2775 Aug, Seizures R56.9 [facility] [id number] [place] [address] 99265- 8936 Aug, Seizures R56.9 [facility] [id number] [place] [address] 544902- 1500 Aug, Major depressive disorder, recurrent, moderate F33.1 and Seizures R56.9 [facility] [id number] [place] [address] 29340- 3294 Aug, [place] [facility] [id number] [place] [address] 12129- 6492 Aug, [facility] [id number] [place] [address] 26138- 5708 Aug, Major depressive disorder, recurrent, moderate F33.1 and Seizures R56.9 [facility] [id number] [place] [address] 88441- 0632 Jul, Major depressive disorder, recurrent, moderate F33.1 and Degenerative brain disorder G31.9 [facility] [id number] [place] [address] 45376- 7370 Jul, Seizures R56.9 [facility] [id number] [place] [address] 17954- 0834 Apr, [facility] [id number] [place] [address] 91425- 6907 Apr, Major depressive disorder, recurrent, moderate F33.1 ; Anxiety F41.9 and Degenerative brain disorder G31.9 [facility] [id number] [place] [address] 03652- 0547 Apr, Mood disorder F39 [address] [address] [facility] [id number] [place] [address]- 6122 Apr, Arthritis M19.90 [address] [facility] [id number] [address]- 9746 Mar, Arthritis M19.90 ; Degenerative brain disorder G31.9 and Nonintractable generalized idiopathic epilepsy without status epilepticus G40.309 [address] [facility] [id number] [address]- 0796 Feb, IMMUNIZATIONS No Known Immunizations SOCIAL HISTORY Never Assessed REASON FOR VISIT Injection, joint WB-MA PLAN OF CARE Activity Details Future/Pending Procedure JOINT INJECTION-LARGE JOINT VITAL SIGNS Height 65 in 2018-02-21 Weight 174 lbs 2018-02-21 Temperature 98 degrees Fahrenheit 2018-02-21 Heart Rate 106 bpm 2018-02-21 Respiratory Rate 20 2018-02-21 BMI 28.95 kg/m2 2018-02-21 Blood pressure systolic 122 mmHg 2018-02-21 Blood pressure diastolic 80 mmHg 2018-02-21 MEDICATIONS Medication Instructions Dosage Frequency Start Date End Date Duration Status Ditropan XL 5 mg Orally Once a day 1 tablet 24h Mar, 30 day(s) Active ProAir HFA 108 (90 Base) MCG/ACT Inhalation every 4 hrs 2 puffs as needed for cough or short of breath 4h 30 Active Ondansetron 4 MG Orally every 8 hrs PRN 1 tablet on the tongue and allow to dissolve Aug, Active Memantine HCl 5 MG TAKE 1 TABLET BY MOUTH ONCE DAILY 30 Active Clonidine HCl 0.1 MG Orally Twice a day 1 tablet 12h Active Amitriptyline HCl 25 MG Orally Once a day at bedtime 1 tablet Not-Taking Milk of Magnesia 1200 MG/15ML Orally Once a day constipation 30 ml as needed Active Depakote 500 MG Active Levetiracetam 500 MG Orally Twice a day 1 tablet 12h Active Effexor XR 37.5 MG Orally Once a day (titration) 3 caps daily for 2 weeks then 2 caps daily for 2 weeks then 1 cap daily for 2 weeks then discontinue December, Feb, Active Furosemide 40 mg Orally Once a day in AM 1 tablet Sep, 30 day (s) Active Zyrtec Allergy 10 mg Orally Once a day 1 tablet as needed 24h May, 30 day(s) Active Naproxen 500 MG Orally every 12 hrs 1 tablet as needed 12h 30 Active Percocet 7.5-325 MG Orally every 6 hrs 1 tablet as needed 6h December, 28 days Active Colace 100 mg Orally twice a day 1 capsule 12h Active Keppra 500 MG Orally 2 times a day 3 capsules 12h Not-Taking Potassium Chloride Noni ER 20 meq Orally Once a day 1 tablet with food 24h December, Apr, 30 day(s) Active Divalproex Sodium 500 MG TAKE 3 TABLETS BY MOUTH TWICE DAILY 30 Not-Taking Neurontin 300 MG Orally 3 times a day 1 capsule 8h Aug, Active Biofreeze 4 % Externally Once a day at bedtime 1 applicationt both ankles Active Omeprazole 20 mg Orally Once a day 1 capsules 24h Active Clonazepam 1 MG Orally Twice a day 1/2 tab in the AM and 1 tab in the PM 12h Sep, Active Advair Diskus 500-50 MCG/DOSE Inhalation Twice a day 1 puff 12h Not-Taking RESULTS No Results PROCEDURES Procedure Date Ordered Result Body Site DRAIN/INJECT, JOINT/BURSA February 21, 2018 INSTRUCTIONS MEDICATIONS ADMINISTERED No Known Medications MEDICAL (GENERAL) HISTORY Type Description Date Medical History Toxoplasmosis Medical History migraine Medical History dementia Medical History depression Medical History alzheimers disease Medical History epilepsy Medical History COPD Surgical History cholecystectomy Surgical History appendectomy Surgical History 27 brain surgeries including shunt, [place] Surgical History neck fusion 09/26, 09/28 Surgical History right hand surgery Hospitalization History surgeries Hospitalization History seizures 12/2015
--- OUTSIDE RECORDS SUMMARY | 2018-07-01 14:24 | XMS REPORT ---
Author Author ESTEPHANIA IVAN Organization [facility] Address [address] [place] [address] Care Team Providers Care Peripheral Vascular Tech Name Role Phone ESTEPHANIA IVAN Unavailable PROBLEMS Type Condition ICD9-CM Code VJK45-OD Code Onset Dates Condition Status SNOMED Code Problem Unspecified mental disorder due to known physiological condition F09 Active 443984835 Problem Major depressive disorder, recurrent, moderate F33.1 Active 28489316 Problem Dementia with behavioral disturbance, unspecified dementia type F03.91 Active 7152488194545 Problem Mood disorder F39 Active 48104434 Problem Other chronic pain G89.29 Active 12515471 Problem Anxiety F41.9 Active 67951768 Problem Unsteady gait R26.81 Active 51839083 Problem History of brain shunt Z98.2 Active 114114186 Problem PTSD (post-traumatic stress disorder) F43.10 Active 67445582 Problem Sleep apnea, unspecified type G47.30 Active 88572214 Problem Degenerative brain disorder G31.9 Active 95712632 Problem Depressive disorder, not elsewhere classified F32.9 Active 02635383 Problem Other chronic pain G89.29 Active 21837421 ALLERGIES No Information ENCOUNTERS Encounter Location Date Diagnosis [place] [id number] [place] [address] 42602- [address]85 Apr, [facility] [address] [place] [id number] Mar, History of brain shunt Z98.2 ; Depressive disorder, not elsewhere classified F32.9 ; Degenerative brain disorder G31.9 ; Unsteady gait R26.81 ; Other chronic pain G89.29 and Daily headache R51 [place] [id number] [place] [address] 52913- 6623 Mar, PTSD (post-traumatic stress disorder) F43.10 [place] [address] [address] Mar, [facility] [id number] [place] [address] 00759- 3039 Feb, PTSD (post-traumatic stress disorder) F43.10 [facility] [address] [address] Feb, PTSD (post-traumatic stress disorder) F43.10 [facility] [id number] [place] [address] 99769- 5922 Feb, Other chronic pain G89.29 and Pain in right knee M25.561 [place] [id number] [place] [address] 27442- 2556 Feb, PTSD (post-traumatic stress disorder) F43.10 [place] [id number] [place] [address] 27925- 0775 Feb, [facility] [address] [id number] Jan, Dementia with behavioral disturbance, unspecified dementia type F03.91 ; Other chronic pain G89.29 and Plantar fasciitis M72.[address] [facility] [address] [id number] Jan, Daily headache R51 ; History of brain shunt Z98.2 ; Plantar fasciitis of left foot M72.2 ; Pain in right knee M25.561 and Pain in left knee M25.562 [place] [address] [address] Jan, [place] [address] [address] Jan, Pain in right knee M25.561 [place] [id number] [place] [address] 41671- 5413 Jan, [place] [id number] [address] 2[address] Jan, [place] [id number] [address] Jan, [facility] [id number] [place] [address] 55278- 5193 December, Other chronic pain G89.29 [facility] [address] [place] [id number] December, Pain in left knee M25.562 ; Pain in right leg M79.604 ; Other chronic pain G89.29 ; Localized edema R60.0 and PTSD (post-traumatic stress disorder) F43.10 [facility] [address] [address] December, [facility] [id number] [place] [address] 51674- 3245 December, PTSD (post-traumatic stress disorder) F43.10 [facility] [id number] [place] [address] 95289- 3710 December, [facility] [address] [address]- 6[address] December, [facility] [id number] [place] [address] 53263- 0900 December, Depressive disorder, not elsewhere classified F32.9 and Cognitive change R41.89 [facility] [address] [address]- [address] Nov, Major depressive disorder, recurrent, moderate F33.1 [facility] [address], [place] [address]- 3437 Nov, [facility] [id number] [place] [address] 41120- 7313 Nov, [facility] [address], [place] [address]- 4905 Nov, [facility] [id number] [place] [address] 43849- 0016 Nov, [facility] [id number], [place] [address] 3428 Nov, Mood disorder F39 [facility] [address], [place] [address]- 7971 Nov, Depressive disorder, not elsewhere classified F32.9 and Cognitive change R41.89 [facility] [address], [place] [address] 6041 Nov, [facility] [address], [place] [address]- 6099 Nov, [facility] [address] [place] [id number] Oct, Tear of skin of plantar aspect of right foot, initial encounter S91.311A [facility] [id number], [place] [address] Oct, [facility] [address] [address] Oct, [facility] [id number] [address] Oct, [facility] [id number] [id number] Oct, [facility] [id number] [address] Sep, [facility] [id number] [address] Sep, [facility] [address] [place] [id number] [address] Sep, [facility] [id number] [address] Sep, [facility] [address] [id number], [place] [address]- 2546 Sep, [facility] [address] [id number], [place] [address]- 8036 Sep, Other chronic pain G89.29 and Pain in left knee M25.562 [facility] [address], [place] [address]- 288[address] Sep, [facility] [address] [place] [id number] Sep, Plantar fasciitis of left foot M72.2 and Pain in right knee M25.561 [facility] [id number] [address] Aug, [facility] [address], [place] [address]- 0779 Aug, [facility] [address], [place] [address]- 1689 Aug, [facility] [address], [place] [address]- 0774 Aug, Chronic daily headache R51 [facility] [address], [place] [address]- 4[address] Aug, [facility] [address] [place] [address] Aug, Edema, unspecified type R60.9 ; Weight gain R63.5 and Sleep apnea, unspecified type G47.30 [facility] [address] [place] [address] Jul, Acute pain of left knee M25.562 and Plantar fasciitis of left foot M72.2 [facility] [address], [place] [address]- 2536 Jul, [facility] [address] [place] [id number] Jul, Plantar fasciitis of left foot M72.2 and Chronic daily headache R51 [facility] [id number] [id number] Jul, [facility] [id number] [address] Jun, [facility] [address], [place] [address]- 7638 Jun, [facility] [id number] [address] Jun, [facility] [id number] [address] Jun, [facility] [id number] [id number] May, [facility] [id number] [address] May, [facility] [id number] [place] [address] 14661- 1456 May, Stress incontinence of urine N39.3 [facility] [id number] [address] May, [facility] [address] [place] [id number] May, Encounter for examination for admission to shelter Z02.2 ; Toxoplasmosis B58.9 ; Seizures R56.9 ; Major depressive disorder, recurrent, moderate F33.1 ; Degenerative brain disorder G31.9 and Unsteady gait R26.81 [facility] [address], [place] [address]- 4271 May, [facility] [address], [place] [address]- 3419 May, Mood disorder F39 [facility] [address], [place] [address]- 5123 May, [facility] [address], [place] [address]- 3193 Apr, [facility] [address] [address]365 Mar, [facility] [address], [place] [address]- 5596 Mar, [facility] [place] [facility] [address] [id number] [place] [address]- 6432 Mar, [facility] [place] [facility] [address] [id number] [place] [address]- 3454 Mar, [facility] [place] [facility] [address] [id number] [place] [address]- 3812 Mar, [facility] [place] [facility] [address] [id number] [place] [address]- 0736 Mar, Stress incontinence of urine N39.3 [facility] [address] [id number] [place] [id number] Mar, [facility] [place] [facility] [address] [id number] [place] [address]- 0696 Feb, [facility] [place] [facility] [address] [id number] [place] [address]- 8523 Feb, [facility] [place] [facility] [address] [id number] [place] [address]- 5331 Feb, [facility] [place] [facility] [address] [id number] [place] [address]- 5722 Feb, [facility] [place] [facility] [address] [id number] [place] [address]- 8996 Feb, [facility] [place] [facility] [address] [id number] [place] [address]- 9734 Feb, [facility] [place] [facility] [address] [id number] [place] [address]- 9247 Feb, [facility] [place] [facility] [address] [id number] [place] [address]- 0117 Jan, [facility] [place] [facility] [address] [id number] [place] [address]- 5688 Jan, [facility] [place] [facility] [address] [id number] [place] [address]- 3099 Jan, [facility] [place] [facility] [address] [id number], [place] [address]- 3469 Jan, [facility] [address], [place] [address]- 9363 Jan, [facility] [id number] [place] [address] 56134- 0596 Jan, [facility] [id number] [place] [address] 84909- 6749 Jan, [facility] [id number] [place] [address] 06515- 7938 Jan, General weakness R53.1 and Dementia with behavioral disturbance, unspecified dementia type F03.91 [facility] [id number] [place] [address] 27299- 6749 December, [facility] [id number] [place] [address] 11943- 3093 December, Other chronic pain G89.29 [facility] [id number] [place] [address] 39659- 0087 December, [facility] [id number] [place] [address] 87430- 5784 December, Unsteady gait R26.81 ; Generalized weakness R53.1 ; Unspecified mental disorder due to known physiological condition F09 and Generalized headaches R51 [facility] [address], [place] [address]- 5788 December, [facility] [id number] [place] [address] 45799- 1359 Nov, Anxiety F41.9 [facility] [address] [place] [address] 20540- 2849 Nov, Mood disorder F39 [facility] [address] [place] [address] 23316- 1180 Oct, [facility] [address] [place] [address] 90864- 1632 Oct, Anxiety F41.9 [facility] [id number] [place] [address] 85337- 5714 Oct, Other chronic pain G89.29 [facility] [id number] [place] [address] 49347- 1070 Sep, Other chronic pain G89.29 ; Pain in left knee M25.562 ; Pain in right knee M25.561 and Anxiety F41.9 [facility] [id number] [place] [address] 14351- 7209 Sep, MDD (major depressive disorder), recurrent episode, mild F33.0 ; Degenerative brain disorder G31.9 and Other fci (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 Z79.899 [place] [id number] [place] [address] 06249- 4263 Sep, [place] [address] [address]- 4507 Sep, [place] [id number] [place] [address] 81757- 8275 Sep, Mood disorder F39 ; Pain of left leg M79.605 and Pain in right leg M79.604 [place] [id number] [place] [address] 84558- 2608 14 Sep, 2016 Seizures R56.9 [place] [id number] [place] [address] 89808- 5362 Sep, [place] [id number] [place] [address] 30920- 2543 Sep, [place] [id number] [place] [address] 38687- 0033 Sep, [facility] [id number] [place] [address] 68328- 3591 Aug, Bronchitis J40 [facility] [id number] [place] [address] 75653- 2488 Aug, Bronchitis J40 and Encounter for drug screening Z02.83 [facility] [id number] [place] [address] 03420- 9822 Aug, [facility] [id number] [place] [address] 77825- 8449 Aug, Seizures R56.9 [facility] [address] 36761- 0711 Aug, Seizures R56.9 [facility] [address] 63487- 2579 Aug, Major depressive disorder, recurrent, moderate F33.1 and Seizures R56.9 [facility] [id number] [place] [address] 31067- 6902 Aug, [facility] [address] 24544- 0496 Aug, [facility] [address] 48554- 8282 Aug, Major depressive disorder, recurrent, moderate F33.1 and Seizures R56.9 [facility] [id number] [place] [address] 68798- 7325 Jul, Major depressive disorder, recurrent, moderate F33.1 and Degenerative brain disorder G31.9 [facility] [id number] [place] [address] 88400- 5612 Jul, Seizures R56.9 [facility] [id number] [place] [address] 65186- 4614 Apr, [facility] [address] 50844- 6168 Apr, Major depressive disorder, recurrent, moderate F33.1 ; Anxiety F41.9 and Degenerative brain disorder G31.9 [facility] [id number] [place] [address] 35895- 7565 Apr, Mood disorder F39 [place] [address] [facility] [id number] [place] [address]- 7324 Apr, Arthritis M19.90 [place] [address] [facility] [id number] [address]- 2744 Mar, Arthritis M19.90 ; Degenerative brain disorder G31.9 and Nonintractable generalized idiopathic epilepsy without status epilepticus G40.309 [place] [address] [facility] [id number] [address]- 5583 Feb, IMMUNIZATIONS No Known Immunizations SOCIAL HISTORY Never Assessed REASON FOR VISIT [facility] visit PLAN OF CARE Activity Details Follow Up prn Reason: VITAL SIGNS MEDICATIONS Medication Instructions Dosage Frequency Start Date End Date Duration Status Zyrtec Allergy 10 mg Orally Once a day 1 tablet as needed 24h May, 30 day(s) Active Omeprazole 20 mg Orally Once a day 1 capsules 24h Active Neurontin 300 MG Orally 3 times a day 1 capsule 8h Aug, Active Biofreeze 4 % Externally Once a day at bedtime 1 applicationt both ankles Active Clonazepam 1 MG Orally Twice a day 1/2 tab in the AM and 1 tab in the PM 12h Sep, Active Ditropan XL 5 mg Orally Once a day 1 tablet 24h Mar, 30 day(s) Active Advair Diskus 500-50 MCG/DOSE Inhalation Twice a day 1 puff 12h Active Naproxen 500 MG Orally every 12 hrs 1 tablet as needed 12h 30 Active Clonidine HCl 0.1 MG Orally Twice a day 1 tablet 12h Active Potassium Chloride Noni ER 20 meq Orally Once a day 1 tablet with food 24h December, Apr, 30 day(s) Active Keppra 500 MG Orally 2 times a day 3 capsules 12h Active Effexor XR 37.5 MG Orally Once a day (titration) 3 caps daily for 2 weeks then 2 caps daily for 2 weeks then 1 cap daily for 2 weeks then discontinue December, Active Amitriptyline HCl 25 MG Orally Once a day at bedtime 1 tablet Active Milk of Magnesia 1200 MG/15ML Orally Once a day constipation 30 ml as needed Active Memantine HCl 5 MG TAKE 1 TABLET BY MOUTH ONCE DAILY 30 Active Colace 100 mg Orally twice a day 1 capsule 12h Active Divalproex Sodium 500 MG TAKE 3 TABLETS BY MOUTH TWICE DAILY 30 Active Furosemide 40 mg Orally Once a day in AM 1 tablet Sep, 30 day (s) Active ProAir HFA 108 (90 Base) MCG/ACT [...] Body Site Minor complication (15 mins) February 09, 2018 INSTRUCTIONS MEDICATIONS ADMINISTERED No Known Medications MEDICAL (GENERAL) HISTORY Type Description Date Medical History Toxoplasmosis Medical History migraine Medical History dementia Medical History depression Medical History alzheimers disease Medical History epilepsy Medical History COPD Surgical History cholecystectomy Surgical History appendectomy Surgical History 27 brain surgeries including shunt, [place] Surgical History neck fusion 09/26, 09/28 Surgical History right hand surgery Hospitalization History surgeries Hospitalization History seizures 12/2015
--- OUTSIDE RECORDS SUMMARY | 2018-07-01 14:24 | XMS REPORT ---
Author Author ESTEPHANIA IVAN Organization [facility] [place] Address [address] [place] [address] Care Team Providers Care Freight Team Associate Name Role Phone ESTEPHANIA IVAN Unavailable PROBLEMS Type Condition ICD9-CM Code DIY62-LR Code Onset Dates Condition Status SNOMED Code Problem Unspecified mental disorder due to known physiological condition F09 Active 012982894 Problem Major depressive disorder, recurrent, moderate F33.1 Active 25810225 Problem Dementia with behavioral disturbance, unspecified dementia type F03.91 Active 8860803853279 Problem Mood disorder F39 Active 13676048 Problem Other chronic pain G89.29 Active 38605963 Problem Anxiety F41.9 Active 47209245 Problem Unsteady gait R26.81 Active 93948251 Problem History of brain shunt Z98.2 Active 095276376 Problem PTSD (post-traumatic stress disorder) F43.10 Active 89491663 Problem Sleep apnea, unspecified type G47.30 Active 74220528 Problem Degenerative brain disorder G31.9 Active 70578093 Problem Depressive disorder, not elsewhere classified F32.9 Active 73497442 Problem Other chronic pain G89.29 Active 84759239 ALLERGIES No Information ENCOUNTERS Encounter Location Date Diagnosis [place] [id number] [place] [address] 81930- 4131 Apr, [facility] [address] [place] [id number] Mar, History of brain shunt Z98.2 ; Depressive disorder, not elsewhere classified F32.9 ; Degenerative brain disorder G31.9 ; Unsteady gait R26.81 ; Other chronic pain G89.29 and Daily headache R51 [place] [id number] [place] [address] 28732- 9633 Mar, PTSD (post-traumatic stress disorder) F43.10 [place] [address], [place] [address] Mar, [facility] [place] [id number] [place] [address] 74296- 2268 Feb, PTSD (post-traumatic stress disorder) F43.10 [facility] [place] [address], [place] [address] 87[address] Feb, PTSD (post-traumatic stress disorder) F43.10 [facility] [place] [id number] [place] [address] 52367- 4694 Feb, Other chronic pain G89.29 and Pain in right knee M25.561 [place] [address] [place] [id number] [place] [address] 98212- 5134 Feb, PTSD (post-traumatic stress disorder) F43.10 [place] [id number] [place] [address] 06000- 1094 Feb, [facility] [address] [id number] Jan, Dementia with behavioral disturbance, unspecified dementia type F03.91 ; Other chronic pain G89.29 and Plantar fasciitis M72.[address] [facility] [address] [id number] Jan, Daily headache R51 ; History of brain shunt Z98.2 ; Plantar fasciitis of left foot M72.2 ; Pain in right knee M25.561 and Pain in left knee M25.562 [place] [id number], [place] [address] 7[address] Jan, [place] [address], [place] [address] 95[address] Jan, Pain in right knee M25.561 [place] [id number] [place] [address] 79665- 5047 Jan, [place] [id number] [address] 6043 Jan, [place] [id number], [place] [address] 12[address] Jan, [facility] [place] [address] [place] [address] [id number] [place] [address] 11039- 8264 December, Other chronic pain G89.29 [facility] [address] [place] [place] [address] December, Pain in left knee M25.562 ; Pain in right leg M79.604 ; Other chronic pain G89.29 ; Localized edema R60.0 and PTSD (post-traumatic stress disorder) F43.10 [facility] [place] [address], [place] [address] 2[address] December, [facility] [place] [address] [place] [address] [id number] [place] [address] 00882- 9791 December, PTSD (post-traumatic stress disorder) F43.10 [facility] [place] [address] [place] [address] [id number] [place] [address] 21043- 7836 December, [facility] [place] [id number], [place] [address] 2751 December, [facility] [place] [address] [place] [id number] [place] [address] 12433- 0708 December, Depressive disorder, not elsewhere classified F32.9 and Cognitive change R41.89 [facility] [place] [id number], [place] [address] 6[address] Nov, Major depressive disorder, recurrent, moderate F33.1 [facility] [place] [id number], [place] [address] 5075 Nov, [facility] [place] [address] [place] [id number] [place] [address] 57708- 4815 Nov, [facility] [place] [id number], [place] [address] 1674 Nov, [facility] [place] [id number] [place] [address] 98130- 7437 Nov, [facility] [place] [address] [place] [id number], [place] [address] 8474 Nov, Mood disorder F39 [facility] [place] [id number], [place] [address] 3387 Nov, Depressive disorder, not elsewhere classified F32.9 and Cognitive change R41.89 [facility] [place] [id number], [place] [address] 27[address] Nov, [facility] [place] [id number], [place] [address]- 8947 Nov, [facility] [address] [place] [id number] Oct, Tear of skin of plantar aspect of right foot, initial encounter S91.311A [facility] [place] [address] [id number], [place] [address] 9512 Oct, [facility] [place] [id number] [address] Oct, [facility] [id number] [address] Oct, [facility] [id number] [address] Oct, [facility] [id number] [address] Sep, [facility] [id number] [id number] Sep, [facility] [address] [place] [id number] [address] Sep, [facility] [address] [place] [id number] [address] Sep, [facility] [id number], [place] [address]- 2546 Sep, [facility] [place] [address] [place] [id number], [place] [address]- 2206 Sep, Other chronic pain G89.29 and Pain in left knee M25.562 [facility] [place] [address], [place] [address] 3639 Sep, [facility] [address] [place] [address] Sep, Plantar fasciitis of left foot M72.2 and Pain in right knee M25.561 [facility] [address] [place] [id number] [id number] Aug, [facility] [place] [id number], [place] [address]- 0778 Aug, [facility] [place] [id number], [place] [address]- 2592 Aug, [facility] [place] [id number], [place] [address]- 6250 Aug, Chronic daily headache R51 [facility] [place] [address], [place] [address]- 1757 Aug, [facility] [address] [place] [id number] Aug, Edema, unspecified type R60.9 ; Weight gain R63.5 and Sleep apnea, unspecified type G47.30 [facility] [address] [place] [address] Jul, Acute pain of left knee M25.562 and Plantar fasciitis of left foot M72.2 [facility] [place] [address], [place] [address]- 8[address] Jul, [facility] [address] [place] [address] Jul, Plantar fasciitis of left foot M72.2 and Chronic daily headache R51 [facility] [id number] [address] Jul, [facility] [id number] [address] Jun, [facility] [place] [id number], [place] [address]- 1657 Jun, [facility] [address] [place] [id number] [address] Jun, [facility] [address] [place] [id number] [id number] Jun, [facility] [address] [place] [id number] [address] May, [facility] [address] [place] [id number] [id number] May, [facility] [place] [id number] [place] [address] 37988- 1002 May, Stress incontinence of urine N39.3 [facility] [id number] [address] May, [facility] [address] [place] [id number] May, Encounter for examination for admission to fpc Z02.2 ; Toxoplasmosis B58.9 ; Seizures R56.9 ; Major depressive disorder, recurrent, moderate F33.1 ; Degenerative brain disorder G31.9 and Unsteady gait R26.81 [facility] [place] [id number], [place] [address]- 5588 May, [facility] [place] [id number], [place] [address]- 0497 May, Mood disorder F39 [facility] [place] [id number], [place] [address]- 6225 May, [facility] [place] [id number], [place] [address]- 2589 Apr, [facility] [place] [id number] [address] 3245 Mar, [facility] [place] [id number], [place] [address]- 1716 Mar, [facility] [place] [facility] [address] [id number] [place] [address]- 1298 Mar, [facility] [place] [facility] [address] [id number] [place] [address]- 0803 Mar, [facility] [place] [facility] [address] [id number] [place] [address]- 3663 Mar, [facility] [place] [facility] [address] [id number] [place] [address]- 1297 Mar, Stress incontinence of urine N39.3 [facility] [address] [id number] [place] [id number] Mar, [facility] [place] [facility] [address] [id number] [place] [address]- 8084 Feb, [facility] [place] [facility] [address] [id number] [place] [address]- 1778 Feb, [facility] [place] [facility] [address] [id number] [place] [address]- 9540 Feb, [facility] [place] [facility] [address] [id number] [place] [address]- 2116 Feb, [facility] [place] [facility] [address] [id number] [place] [address]- 9992 Feb, [facility] [place] [facility] [address] [id number] [place] [address]- 3514 Feb, [facility] [place] [facility] [address] [id number] [place] [address]- 4964 Feb, [facility] [place] [facility] [address] [id number] [place] [address]- 4147 Jan, [facility] [place] [facility] [address] [id number] [place] [address]- 1301 Jan, [facility] [place] [facility] [address] [id number] [place] [address]- 6956 Jan, [facility] [place] [facility] [address] [id number], [place] [address]- 6535 Jan, [facility] [place] [id number], [place] [address]- 5764 Jan, [facility] [place] [address] [place] [id number] [place] [address] 81199- 5598 Jan, [facility] [place] [id number] [place] [address] 13975- 8703 Jan, [facility] [place] [address] [place] [id number] [place] [address] 39703- 6874 Jan, General weakness R53.1 and Dementia with behavioral disturbance, unspecified dementia type F03.91 [facility] [place] [address] [place] [id number] [place] [address] 06098- 5744 December, [facility] [place] [address] [place] [id number] [place] [address] 19223- 1003 December, Other chronic pain G89.29 [facility] [place] [address] [place] [id number] [place] [address] 22447- 9216 December, [facility] [place] [address] [place] [id number] [place] [address] 69349- 3495 December, Unsteady gait R26.81 ; Generalized weakness R53.1 ; Unspecified mental disorder due to known physiological condition F09 and Generalized headaches R51 [facility] [place] [address], [place] [address]- 1641 December, [facility] [place] [id number] [place] [address] 79477- 1537 Nov, Anxiety F41.9 [facility] [place] [id number] [place] [address] 75320- 1175 Nov, Mood disorder F39 [facility] [place] [id number] [place] [address] 38723- 4087 Oct, [facility] [place] [id number] [place] [address] 60758- 8954 Oct, Anxiety F41.9 [facility] [place] [address] [place] [id number] [place] [address] 06135- 7063 Oct, Other chronic pain G89.29 [facility] [place] [address] [place] [id number] [place] [address] 61226- 0048 Sep, Other chronic pain G89.29 ; Pain in left knee M25.562 ; Pain in right knee M25.561 and Anxiety F41.9 [facility] [place] [address] [place] [id number] [place] [address] 39707- 3723 Sep, MDD (major depressive disorder), recurrent episode, mild F33.0 ; Degenerative brain disorder G31.9 and Other fpc (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 Z79.899 [place] [address] [place] [id number] [place] [address] 82576- 7801 Sep, [place] [address] 41125- 0771 Sep, [place] [address] [place] [id number] [place] [address] 77983- 8908 Sep, Mood disorder F39 ; Pain of left leg M79.605 and Pain in right leg M79.604 [place] [address] [place] [id number] [place] [address] 50220- 5731 14 Sep, 2016 Seizures R56.9 [place] [address] [place] [id number] [place] [address] 15502- 2882 Sep, [place] [address] [place] [id number] [place] [address] 23972- 2545 Sep, [place] [address] [place] [id number] [place] [address] 47944- 4993 Sep, [facility] [place] [address] [place] [id number] [place] [address] 17119- 9052 Aug, Bronchitis J40 [facility] [place] [address] [place] [id number] [place] [address] 84005- 5580 Aug, Bronchitis J40 and Encounter for drug screening Z02.83 [facility] [place] [id number] [place] [address] 76133- 3676 Aug, [facility] [place] [address] [id number] [place] [address] 88383- 4807 Aug, Seizures R56.9 [facility] [place] [address] 17178- 0376 Aug, Seizures R56.9 [facility] [place] [address] 50641- 1962 Aug, Major depressive disorder, recurrent, moderate F33.1 and Seizures R56.9 [facility] [place] [address] [place] [id number] [place] [address] 39079- 8124 Aug, [facility] [place] [address] 30820- 2972 Aug, [facility] [place] [address] 63467- 4944 Aug, Major depressive disorder, recurrent, moderate F33.1 and Seizures R56.9 [facility] [place] [address] [place] [id number] [place] [address] 38572- 8555 Jul, Major depressive disorder, recurrent, moderate F33.1 and Degenerative brain disorder G31.9 [facility] [place] [address] [place] [id number] [place] [address] 98008- 8261 Jul, Seizures R56.9 [facility] [place] [id number] [place] [address] 19439- 8117 Apr, [facility] [place] [address] 43725- 7993 Apr, Major depressive disorder, recurrent, moderate F33.1 ; Anxiety F41.9 and Degenerative brain disorder G31.9 [facility] [place] [id number] [place] [address] 18067- 9537 Apr, Mood disorder F39 [place] [id number] [facility] [id number] [place] [address]- 1688 Apr, Arthritis M19.90 [place] [address] [facility] [id number] [address]- 7583 Mar, Arthritis M19.90 ; Degenerative brain disorder G31.9 and Nonintractable generalized idiopathic epilepsy without status epilepticus G40.309 [place] [address] [facility] [id number], [place] [address]- 0560 Feb, IMMUNIZATIONS No Known Immunizations SOCIAL HISTORY Never Assessed REASON FOR VISIT routine Shelter PLAN OF CARE Activity Details Follow Up prn Reason: VITAL SIGNS MEDICATIONS Medication Instructions Dosage Frequency Start Date End Date Duration Status Ondansetron 4 MG Orally every 8 hrs PRN 1 tablet on the tongue and allow to dissolve Aug, Unknown Divalproex Sodium 500 MG TAKE 3 TABLETS BY MOUTH TWICE DAILY 30 Unknown Keppra 500 MG Orally 2 times a day 3 capsules 12h Unknown Potassium Chloride ER 20 meq Orally Once a day 1 tablet with food 24h Sep, Jan, 30 day(s) Unknown Effexor XR 37.5 MG Orally Once a day (titration) 3 caps daily for 2 weeks then 2 caps daily for 2 weeks then 1 cap daily for 2 weeks then discontinue December, 30 day(s) Unknown Zyrtec Allergy 10 mg Orally Once a day 1 tablet as needed 24h May, 30 day(s) Unknown Naproxen 500 MG Orally every 12 hrs 1 tablet as needed 12h 30 Unknown Furosemide 40 mg Orally Once a day in AM 1 tablet Sep, 30 day (s) Unknown Omeprazole 20 mg Orally Once a day 1 capsules 24h Unknown Hydrocodone-Acetaminophen 10-325 MG Orally 3 times a day 1 tablet as needed 8h December, Active Morphine Sulfate ER 20 mg Orally twice a day 1 capsule 12h December, Jan, 28 days Active Amitriptyline HCl 25 MG Orally Once a day at bedtime 1 tablet Unknown Tabernash 10-325 MG Orally 3 times a day 1 tablet 8h Nov, 28 days Unknown Levetiracetam 500 mg Orally 2 times a day 3 tablets 12h Unknown Lasix 40 mg Orally Once a day 1 tablet 24h December, 30 day(s) Active ProAir HFA 108 (90 Base) MCG/ACT Inhalation every 4 hrs 2 puffs as needed for cough or short of breath 4h 30 Unknown Oxybutynin Chloride ER 5 MG TAKE 1 TABLET BY MOUTH DAILY 30 Unknown Clonidine HCl 0.1 MG Orally Twice a day 1 tablet 12h Unknown Neurontin 300 MG Orally 3 times a day 1 capsule 8h 10 Aug, 2017 Unknown Biofreeze 4 % Externally Once a day at bedtime 1 applicationt both ankles Unknown Clonazepam 1 MG Orally Twice a day 1/2 tab in the AM and 1 tab in the PM 12h Sep, Unknown Memantine HCl 5 MG TAKE 1 TABLET BY MOUTH ONCE DAILY 30 Unknown Venlafaxine HCl ER 150 MG Orally Once a day 1 tablet with food Once a day Orally 30 day(s) 24h 14 days Unknown Ditropan XL 5 mg Orally Once a day 1 tablet 24h 18 Mar, 2017 30 day(s) Unknown Potassium Chloride Noni ER 20 meq Orally Once a day 1 tablet with food 24h December, Apr, 30 day(s) Active Colace 100 mg Orally twice a day 1 capsule 12h Unknown Advair Diskus 500-50 MCG/DOSE Inhalation Twice a day 1 puff 12h Unknown RESULTS No Results PROCEDURES Procedure Date Ordered Result Body Site Minor complication (15 mins) January 19, 2018 INSTRUCTIONS MEDICATIONS ADMINISTERED No Known Medications MEDICAL (GENERAL) HISTORY Type Description Date Medical History Toxoplasmosis Medical History migraine Medical History dementia Medical History depression Medical History alzheimers disease Medical History epilepsy Medical History COPD Surgical History cholecystectomy Surgical History appendectomy Surgical History 27 brain surgeries including shunt, [place] Surgical History neck fusion 09/26, 09/28 Surgical History right hand surgery Hospitalization History surgeries Hospitalization History seizures 12/2015
--- OUTSIDE RECORDS SUMMARY | 2018-07-01 14:24 | XMS REPORT ---
Author Author ESTEPHANIA IVAN Organization [facility] Address [address] [place] [address] Care Team Providers Care Biological Technical Officer Name Role Phone ESTEPHANIA IVAN Unavailable PROBLEMS Type Condition ICD9-CM Code [id number] Code Onset Dates Condition Status SNOMED Code Problem Unspecified mental disorder due to known physiological condition F09 Active 804330057 Problem Major depressive disorder, recurrent, moderate F33.1 Active 38642973 Problem Dementia with behavioral disturbance, unspecified dementia type F03.91 Active 6979351075325 Problem Mood disorder F39 Active 95168261 Problem Other chronic pain G89.29 Active 33472023 Problem Anxiety F41.9 Active 00669742 Problem Unsteady gait R26.81 Active 98659070 Problem History of brain shunt Z98.2 Active 438420252 Problem PTSD (post-traumatic stress disorder) F43.10 Active 67152142 Problem Sleep apnea, unspecified type G47.30 Active 71211194 Problem Degenerative brain disorder G31.9 Active 62369695 Problem Depressive disorder, not elsewhere classified F32.9 Active 65228953 Problem Other chronic pain G89.29 Active 83522611 ALLERGIES No Information ENCOUNTERS Encounter Location Date Diagnosis [place] [address] [place] [address] 46482- 8844 Apr, [facility] [address] [id number] Mar, History of brain shunt Z98.2 ; Depressive disorder, not elsewhere classified F32.9 ; Degenerative brain disorder G31.9 ; Unsteady gait R26.81 ; Other chronic pain G89.29 and Daily headache R51 [place] [address] [place] [address] 52944- 2281 Mar, PTSD (post-traumatic stress disorder) F43.10 [place] [address] [address] Mar, [facility] [address] [place] [address] 42039- 0922 Feb, PTSD (post-traumatic stress disorder) F43.10 [facility] [address] [address] 6[address] Feb, PTSD (post-traumatic stress disorder) F43.10 [facility] [address] [place] [address] 09853- 4962 Feb, Other chronic pain G89.29 and Pain in right knee M25.561 [place] [address] [place] [id number] [place] [address] 34525- 0865 Feb, PTSD (post-traumatic stress disorder) F43.10 [place] [address] [place] [address] 94085- 9443 Feb, [facility] [address] [id number] Jan, Dementia with behavioral disturbance, unspecified dementia type F03.91 ; Other chronic pain G89.29 and Plantar fasciitis M72.[address] [facility] [address] [id number] Jan, Daily headache R51 ; History of brain shunt Z98.2 ; Plantar fasciitis of left foot M72.2 ; Pain in right knee M25.561 and Pain in left knee M25.562 [place] [address] [address] Jan, [place] [address] [address] 8[address] Jan, Pain in right knee M25.561 [place] [address] [place] [address] 08002- 7914 Jan, [place] [address] [address] 98[address] Jan, [place] [address] [address] 267[address] Jan, [facility] [address] [place] [id number] [place] [address] 87875- 0613 December, Other chronic pain G89.29 [facility] [address] [place] [address] December, Pain in left knee M25.562 ; Pain in right leg M79.604 ; Other chronic pain G89.29 ; Localized edema R60.0 and PTSD (post-traumatic stress disorder) F43.10 [facility] [address] [address] December, [facility] [address] [place] [id number] [place] [address] 06433- 1179 December, PTSD (post-traumatic stress disorder) F43.10 [facility] [address] [place] [id number] [place] [address] 72210- 0511 December, [facility] [address], [place] [address] 9[address] December, [facility] [address] [place] [id number] [place] [address] 08857- 6699 December, Depressive disorder, not elsewhere classified F32.9 and Cognitive change R41.89 [facility] [address] [address] 94[address] Nov, Major depressive disorder, recurrent, moderate F33.1 [facility] [address], [place] [address] 75[address] Nov, [facility] [address] [place] [address] [id number] [place] [address] 25462- 4120 Nov, [facility] [address], [place] [address] 8[address] Nov, [facility] [address] [place] [address] 31013- 6926 Nov, [facility] [id number] [address] 6[address] Nov, Mood disorder F39 [facility] [address], [place] [address] 350[address] Nov, Depressive disorder, not elsewhere classified F32.9 and Cognitive change R41.89 [facility] [address], [place] [address] 389[address] Nov, [facility] [address], [place] [address] 49[address] Nov, [facility] [address] [place] [id number] Oct, Tear of skin of plantar aspect of right foot, initial encounter S91.311A [facility] [id number] [address] 67[address] Oct, [facility] [address] [address] Oct, [facility] [id number] [id number] Oct, [facility] [id number] [id number] Oct, [facility] [id number] [address] Sep, [facility] [id number] [id number] Sep, [facility] [address] [place] [address] [id number] [id number] Sep, [facility] [address] [address] Sep, [facility] [id number], [place] [address] 25[address] Sep, [facility] [id number], [place] [address] 1486 Sep, Other chronic pain G89.29 and Pain in left knee M25.562 [facility] [address], [place] [address] Sep, [facility] [address] [place] [address] Sep, Plantar fasciitis of left foot M72.2 and Pain in right knee M25.561 [facility] [address] [address] Aug, [facility] [address], [place] [address] 00[address] Aug, [facility] [address], [place] [address] 1049 Aug, [facility] [address], [place] [address] 8967 Aug, Chronic daily headache R51 [facility] [address], [place] [address] 12[address] Aug, [facility] [address] [place] [id number] Aug, Edema, unspecified type R60.9 ; Weight gain R63.5 and Sleep apnea, unspecified type G47.30 [facility] [address] [place] [id number] Jul, Acute pain of left knee M25.562 and Plantar fasciitis of left foot M72.2 [facility] [address], [place] [address]- 9336 Jul, [facility] [address] [place] [address] Jul, Plantar fasciitis of left foot M72.2 and Chronic daily headache R51 [facility] [id number] [address] Jul, [facility] [id number] [address] Jun, [facility] [address], [place] [address]- 7415 Jun, [facility] [address] [address] Jun, [facility] [address] [place] [address] Jun, [facility] [address] [place] [address] May, [facility] [address] [place] [address] May, [facility] [address] [place] [address] 58118- 8703 May, Stress incontinence of urine N39.3 [facility] [id number] [address] May, [facility] [address] [place] [address] May, Encounter for examination for admission to skilled nursing Z02.2 ; Toxoplasmosis B58.9 ; Seizures R56.9 ; Major depressive disorder, recurrent, moderate F33.1 ; Degenerative brain disorder G31.9 and Unsteady gait R26.81 [facility] [address], [place] [address]- 14[address] May, [facility] [address], [place] [address]- 2186 May, Mood disorder F39 [facility] [address], [place] [address]- 8370 May, [facility] [address], [place] [address]- 8495 Apr, [facility] [address] [address] Mar, [facility] [address], [place] [address]- 7701 Mar, [facility] [place] [facility] [address] [id number] [place] [address]- 5187 Mar, [facility] [place] [facility] [address] [id number] [place] [address]- 4736 Mar, [facility] [place] [facility] [address] [id number] [place] [address]- 1484 Mar, [facility] [place] [facility] [address] [id number] [place] [address]- 3439 Mar, Stress incontinence of urine N39.3 [facility] [address] [id number] [place] [id number] Mar, [facility] [place] [facility] [address] [id number] [place] [address]- 0893 Feb, [facility] [place] [facility] [address] [id number] [place] [address]- 0965 Feb, [facility] [place] [facility] [address] [id number] [place] [address]- 0042 Feb, [facility] [place] [facility] [address] [id number] [place] [address]- 9023 Feb, [facility] [place] [facility] [address] [id number] [place] [address]- 0339 Feb, [facility] [place] [facility] [address] [id number] [place] [address]- 1146 Feb, [facility] [place] [facility] [address] [id number] [place] [address]- 4442 Feb, [facility] [place] [facility] [address] [id number] [place] [address]- 6162 Jan, [facility] [place] [facility] [address] [id number] [place] [address]- 5167 Jan, [facility] [place] [facility] [address] [id number] [place] [address]- 9614 Jan, [facility] [place] [facility] [address] [id number], [place] [address]- 9962 Jan, [facility] [address], [place] [address]- 5819 Jan, [facility] [address] [place] [id number] [place] [address] 62927- 8381 Jan, [facility] [address] [place] [address] 67076- 2895 Jan, [facility] [address] [place] [id number] [place] [address] 48842- 6707 Jan, General weakness R53.1 and Dementia with behavioral disturbance, unspecified dementia type F03.91 [facility] [address] [place] [id number] [place] [address] 21404- 9308 December, [facility] [address] [place] [id number] [place] [address] 44731- 4004 December, Other chronic pain G89.29 [facility] [address] [place] [id number] [place] [address] 91022- 1937 December, [facility] [address] [place] [id number] [place] [address] 28249- 3408 December, Unsteady gait R26.81 ; Generalized weakness R53.1 ; Unspecified mental disorder due to known physiological condition F09 and Generalized headaches R51 [facility] [address], [place] [address]- 7354 December, [facility] [address] [place] [address] 44082- 1978 Nov, Anxiety F41.9 [facility] [address] [place] [address] 67566- 0651 Nov, Mood disorder F39 [facility] [address] [place] [address] 38627- 5932 Oct, [facility] [address] [place] [address] 43648- 3022 Oct, Anxiety F41.9 [facility] [address] [place] [id number] [place] [address] 59674- 2905 Oct, Other chronic pain G89.29 [facility] [address] [place] [id number] [place] [address] 92007- 8259 Sep, Other chronic pain G89.29 ; Pain in left knee M25.562 ; Pain in right knee M25.561 and Anxiety F41.9 [facility] [address] [place] [id number] [place] [address] 72908- 1414 Sep, MDD (major depressive disorder), recurrent episode, mild F33.0 ; Degenerative brain disorder G31.9 and Other fpc (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 Z79.899 [place] [address] [place] [id number] [place] [address] 32528- 6222 Sep, [place] [address] 22966- 9841 Sep, [place] [address] [place] [id number] [place] [address] 00113- 2309 Sep, Mood disorder F39 ; Pain of left leg M79.605 and Pain in right leg M79.604 [place] [address] [place] [id number] [place] [address] 46245- 6967 14 Sep, 2016 Seizures R56.9 [place] [address] [place] [id number] [place] [address] 96283- 1046 Sep, [place] [address] [place] [id number] [place] [address] 34169- 2549 Sep, [place] [address] [place] [id number] [place] [address] 80765- 2064 Sep, [facility] [address] [place] [id number] [place] [address] 63191- 4600 Aug, Bronchitis J40 [facility] [address] [place] [id number] [place] [address] 19430- 2466 Aug, Bronchitis J40 and Encounter for drug screening Z02.83 [facility] [address] [place] [id number] [place] [address] 89505- 2834 Aug, [facility] [address] [place] [address] [id number] [place] [address] 51537- 9055 Aug, Seizures R56.9 [facility] [address] 29424- 3131 Aug, Seizures R56.9 [facility] [address] 14713- 9230 Aug, Major depressive disorder, recurrent, moderate F33.1 and Seizures R56.9 [facility] [address] [place] [id number] [place] [address] 92308- 5071 Aug, [facility] [address] 47806- 9777 Aug, [facility] [address] 93194- 0382 Aug, Major depressive disorder, recurrent, moderate F33.1 and Seizures R56.9 [facility] [address] [place] [id number] [place] [address] 54426- 9562 Jul, Major depressive disorder, recurrent, moderate F33.1 and Degenerative brain disorder G31.9 [facility] [address] [place] [id number] [place] [address] 50435- 5257 Jul, Seizures R56.9 [facility] [address] [place] [id number] [place] [address] 35683- 1389 Apr, [facility] [address] 25132- 2018 Apr, Major depressive disorder, recurrent, moderate F33.1 ; Anxiety F41.9 and Degenerative brain disorder G31.9 [facility] [address] [place] [id number] [place] [address] 87815- 2080 Apr, Mood disorder F39 [place] [address] [facility] [id number] [place] [address]- 5051 Apr, Arthritis M19.90 [facility] [address] [facility] [id number] [address]- 4934 Mar, Arthritis M19.90 ; Degenerative brain disorder G31.9 and Nonintractable generalized idiopathic epilepsy without status epilepticus G40.309 [facility] [address] [facility] [id number] [address]- 7790 Feb, IMMUNIZATIONS No Known Immunizations SOCIAL HISTORY [...] Surgical History 27 brain surgeries including shunt, [place] Surgical History neck fusion 09/26, 09/28 Surgical History right hand surgery Hospitalization History surgeries Hospitalization History seizures 12/2015
--- OUTSIDE RECORDS SUMMARY | 2018-07-01 14:25 | XMS REPORT ---
Author Author ESTEPHANIA IVAN Organization [facility] Address [address] [place] [address] Care Team Providers Care Houseperson Name Role Phone ESTEPHANIA IVAN Unavailable PROBLEMS Type Condition ICD9-CM Code TRK66-TU Code Onset Dates Condition Status SNOMED Code Problem Unspecified mental disorder due to known physiological condition F09 Active 054954959 Problem Major depressive disorder, recurrent, moderate F33.1 Active 07356285 Problem Dementia with behavioral disturbance, unspecified dementia type F03.91 Active 1034629677304 Problem Mood disorder F39 Active 46013740 Problem Other chronic pain G89.29 Active 63693639 Problem Anxiety F41.9 Active 42154781 Problem Unsteady gait R26.81 Active 09385106 Problem History of brain shunt Z98.2 Active 625820683 Problem PTSD (post-traumatic stress disorder) F43.10 Active 25075578 Problem Sleep apnea, unspecified type G47.30 Active 70276113 Problem Degenerative brain disorder G31.9 Active 45409256 Problem Depressive disorder, not elsewhere classified F32.9 Active 79182687 Problem Other chronic pain G89.29 Active 68008689 ALLERGIES No Information ENCOUNTERS Encounter Location Date Diagnosis [place] [id number] [place] [address] 07495- 1669 Apr, [facility] [id number] [place] [address] 60504- 5002 Mar, [place] [address] [place] [id number] [place] [address] 46749- 1808 Feb, PTSD (post-traumatic stress disorder) F43.10 [facility] [address], [place] [address] 9841 Feb, PTSD (post-traumatic stress disorder) F43.10 [place] [address], [place] [address] 0599 Feb, Other chronic pain G89.29 and Pain in right knee M25.561 [facility] [address] [place] [address] [id number] [place] [address] 33491- 3466 Feb, PTSD (post-traumatic stress disorder) F43.10 [place] [address] [place] [address] 58760- 3906 Feb, [facility] [address] [id number] Jan, Dementia with behavioral disturbance, unspecified dementia type F03.91 ; Other chronic pain G89.29 and Plantar fasciitis M72.[address] [facility] [address] [id number] Jan, Daily headache R51 ; History of brain shunt Z98.2 ; Plantar fasciitis of left foot M72.2 ; Pain in right knee M25.561 and Pain in left knee M25.562 [place] [address], [place] [address] Jan, [place] [address] [place] [id number] [place] [address] 18302- 8883 Jan, Pain in right knee M25.561 [place] [address], [place] [address] Jan, [facility] [address] [address] 2546 Jan, [facility] [address] [address] 2549 Jan, [facility] [address] [place] [address] [id number] [place] [address] 18606 2548 December, Other chronic pain G89.[address] [facility] [address] [id number] December, Pain in left knee M25.562 ; Pain in right leg M79.604 ; Other chronic pain G89.29 ; Localized edema R60.0 and PTSD (post-traumatic stress disorder) F43.10 [facility] [address] [place] [id number] [place] [address] 20033- 1996 December, [facility] [address] [place] [address] [id number] [place] [address] 61402- 8966 December, PTSD (post-traumatic stress disorder) F43.10 [facility] [address] [place] [address] [id number] [place] [address] 58941- 1446 December, [facility] [id number] [place] [address] 48137- 7346 December, [facility] [address] [place] [id number] [place] [address] 24898- 9926 December, Depressive disorder, not elsewhere classified F32.9 and Cognitive [address]41.89 [facility] [address] [place] [address] [id number] [place] [address] 00780- 6246 Nov, Major depressive disorder, recurrent, moderate F33.1 [facility] [address] [place] [address] [id number] [place] [address] 94933- 7581 Nov, [facility] [address] [id number] [place] [address] 28607- 4560 Nov, [facility] [address] [id number] [place] [address] 86287- 1180 Nov, [facility] [address] [id number] [place] [address] 28503- 4396 Nov, [facility] [address] [place] [address] [id number] [place] [address] 90112- 9094 Nov, Mood disorder F39 [facility] [address] [place] [address] [id number] [place] [address] 37182- 8816 Nov, Depressive disorder, not elsewhere classified F32.9 and Cognitive change R41.89 [facility] [address] [place] [id number] [place] [address] 25504- 4184 Nov, [place] [address] [place] [id number], [place] [address] 4836 Nov, [facility] [place] [address] [place] [id number] Oct, Tear of skin of plantar aspect of right foot, initial encounter S91.311A [facility] [address] [place] [id number], [place] [address] 2547 Oct, [facility] [address], [place] [address] 2546 Oct, [facility] [address] [place] [address] [id number] [place] [address] [id number] Oct, [facility] [address] [place] [id number] [place] [address] [id number] Oct, [facility] [address] [place] [id number] [place] [address] [id number] Sep, [facility] [address] [place] [id number] [place] [address] [id number] Sep, [facility] [address] [place] [id number] [place] [address] [id number] Sep, [facility] [address] [place] [id number] [place] [address] [id number] Sep, [facility] [address], [place] [address] 2546 Sep, [facility] [address], [place] [address]- 2546 Sep, Other chronic pain G89.29 and Pain in left knee M25.562 [facility] [address] [place] [address] 87821- 1176 Sep, [facility] [place] [address] [place] [id number] Sep, Plantar fasciitis of left foot M72.2 and Pain in right knee M25.561 [facility] [address] [place] [address] [id number] [place] [address] [id number] Aug, [facility] [address] [facility] [id number] [address] 7733 Aug, [facility] [address] [facility] [id number], [place] [address]- 8146 Aug, [facility] [address] [facility] [id number], [place] [address]- 3613 Aug, Chronic daily headache R51 [facility] [address] [facility] [id number], [place] [address]- 2276 Aug, [facility] [place] [address] [place] [id number] Aug, Edema, unspecified type R60.9 ; Weight gain R63.5 and Sleep apnea, unspecified type G47.30 [facility] [place] [address] [place] [id number] Jul, Acute pain of left knee M25.562 and Plantar fasciitis of left foot M72.2 [facility] [address] [facility] [id number], [place] [address]- 2796 Jul, [facility] [place] [address] [place] [id number] Jul, Plantar fasciitis of left foot M72.2 and Chronic daily headache R51 [facility] [address] [id number] [id number] Jul, [facility] [address] [id number] [id number] Jun, [facility] [address] [facility] [id number], [place] [address]- 2756 Jun, [facility] [address] [place] [id number][place] [id number] Jun, [facility] [address] [place] [id number] [id number] Jun, [facility] [address] [id number] [id number] May, [facility] [address] [place] [id number] [id number] May, [facility] [address] [place] [id number] [place] [address] 21227611- 0410 May, Stress incontinence of urine N39.3 [facility] [address] [place] [id number] [id number] May, [facility] [address] [place] [id number] May, En[facility] Z02.2 ; Toxoplasmosis B58.9 ; Seizures R56.9 ; Major depressive disorder, recurrent, moderate F33.1 ; Degenerative brain disorder G31.9 and Unsteady gait R26.81 [facility] [address], [place] [address]- 9025 May, [facility] [address] [place] [id number] [place] [address] 45651- 5375 May, Mood disorder F39 [facility] [address] [place] [id number] [place] [address] 90401- 3343 May, [facility] [address] [address] [id number] [place] [address] 28517- 3624 Apr, [facility] [address], [place] [address]- 7249 Mar, [facility] [address] [place] [id number], [place] [address]- 7595 Mar, [facility] [address], [place] [address]- 6076 Mar, [facility] [address] [place] [address] [id number] [place] [address] 24430- 8019 Mar, [facility] [address], [place] [address]- 5049 Mar, [facility] [address] [place] [address] 00834- 7294 Mar, Stress incontinence of urine N39.3 [facility] [address] [id number] [place] [id number] Mar, [facility] [place] [facility] [address] [id number] [place] [address] Feb, [facility] [place] [facility] [address] [id number] [place] 8854 Feb, [facility] [place] [facility] [address] [id number] [place] [address]- 7000 Feb, [facility] [place] [facility] [address] [id number] [place] [address]- 7011 Feb, [facility] [place] [facility] [address] [id number] [place] [address]- 9052 Feb, [facility] [place] [facility] [address] [id number] [place] 9933 Feb, [facility] [place] [facility] [address] [id number] [place] [address]- 1470 Feb, [facility] [place] [facility] [address] [id number] [place] [address]- 0532 Jan, [facility] [place] [facility] [address] [id number] [place] [address]- 4198 Jan, [facility] [place] [facility] [address] [id number] [place] [address]- 5266 Jan, [facility] [place] [facility] [address] [id number] [place] [address]- 0775 Jan, [facility] [place] [facility] [address] [id number] [place] [address]- 6319 Jan, [facility] [place] [facility] [address] [id number] [place] 5192 Jan, [facility] [place] [facility] [address] [id number] [place] 2727 Jan, [facility] [place] [facility] [address], [place] [address]- 7342 Jan, General weakness R53.1 and Dementia with behavioral disturbance, unspecified dementia type F03.91 [facility] [address] [place] [id number] [place] [address] 39045- 6077 December, [facility] [address] [place] [id number] [place] [address] 39604- 4308 December, Other chronic pain G89.29 [facility] [address] [place] [id number] [place] [address] 73024- 3354 December, [facility] [address] [place] [id number] [place] [address] 02883- 4501 December, Unsteady gait R26.81 ; Generalized weakness R53.1 ; Unspecified mental disorder due to known physiological condition F09 and Generalized headaches R51 [facility] [address] [place] [id number] [place] [address] 29939- 1747 December, [facility] [address] [place] [id number] [place] [address] 44057- 2555 Nov, Anxiety F41.9 [facility] [address] [place] [id number] [place] [address] 39858- 6580 Nov, Mood disorder F39 [facility] [id number] [place] [address] 19173- 4550 Oct, [facility] [address] [place] [id number] [place] [address] 14220- 2335 Oct, Anxiety F41.9 [facility] [address] [place] [address] 71123- 5671 Oct, Other chronic pain G89.29 [facility] [address] [place] [id number] [place] [address] 59710- 9480 Sep, Other chronic pain G89.29 ; Pain in left knee M25.562 ; Pain in right knee M25.[address] 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 [address] [place] [address] [id number] [place] [address] 92785- 0200 Sep, [facility] [address] 88576- 4893 Sep, [facility] [address] [place] [id number] [place] [address] 70061- 6265 Sep, Mood disorder F39 ; Pain of left leg M79.605 and Pain in right leg M79.604 [facility] [address] [place] [address] [id number] [place] [address] 40979- 0920 14 Sep, [address] [facility] [address] 87535- 8954 Sep, [facility] [address] [place] [id number] [place] [address] 52177- 9021 Sep, [facility] [address] [place] [id number] [place] [address] 83289- 8299 Sep, [facility] [address] [place] [id number] [place] [address] 71473- 5002 Aug, Bronchitis J40 [facility] [address] [place] [id number] [place] [address] 90805- 4289 Aug, Bronchitis J40 and Encounter for drug screening Z02.83 [facility] [address] 56933- 0369 Aug, [facility] [address] [place] [id number] [place] [address] 24587- 2098 Aug, Seizures R56.9 [facility] [address] 37840- 2540 Aug, Seizures R56.9 [facility] [id number] [place] [address] 21661- 5366 Aug, Major depressive disorder, recurrent, moderate F33.[address] [facility] [address] [place] [address] 85689- 6748 Aug, [facility] [address] [id number] [place] [address] 41474- 8902 Aug, [facility] [address] [place] [id number] [place] [address] 83013- 2546 Aug, Major depressive disorder, recurrent, moderate F33.1 and Seizures R56.9 [place] [address] [place] [address] [id number] [place] [address] 78695- 9600 Jul, Major depressive disorder, recurrent, moderate F33.1 and Degenerative brain disorder G31.9 [place] [address] [place] [address] [id number] [place] [address] 32105- 4594 Jul, Se[address] R56.9 [facility] [address] [place] [id number] [place] [address] 60297- 1261 Apr, [place] [address] [place] [address] [id number] [place] [address] 93150- 9594 Apr, Major depressive disorder, recurrent, moderate F33.1 ; Anxiety F41.9 and Degenerative brain disorder G31.9 [place] [address] [place] [address] 57012- 7508 Apr, Mood disorder F39 [place] [address] [place] [address] 76389- 3348 Apr, Arthritis M19.90 [facility] [address] [place] [id number] [place] [address] 50782- 0372 Mar, Arthritis M19.90 ; Degenerative brain disorder G31.9 and Nonintractable generalized idiopathic epilepsy without status epilepticus G40.309 [place] [address] [place] [id number] [place] [address] 34197- 4797 Feb, IMMUNIZATIONS No Known Immunizations SOCIAL HISTORY Never Assessed REASON FOR VISIT Refer to [facility] for knee injection PLAN OF CARE VITAL SIGNS MEDICATIONS Unknown Medications RESULTS No Results PROCEDURES No Known procedures INSTRUCTIONS MEDICATIONS ADMINISTERED No Known Medications MEDICAL (GENERAL) HISTORY Type Description Date Medical History Toxoplasmosis Medical History migraine Medical History dementia Medical History depression Medical History alzheimers disease Medical History epilepsy Medical History COPD Surgical History cholecystectomy Surgical History appendectomy Surgical History 27 brain surgeries including shunt, [place] Surgical History neck fusion 09/26, 09/28 Surgical History right hand surgery Hospitalization History surgeries Hospitalization History seizures 12/2015
--- OUTSIDE RECORDS SUMMARY | 2018-07-01 14:25 | XMS REPORT ---
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 Name Role Phone KATARINA JENIFER Unavailable PROBLEMS Type Condition ICD9-CM Code SCJ71-DA Code Onset Dates Condition Status SNOMED Code Problem Unspecified mental disorder due to known physiological condition F09 Active 141359995 Problem Major depressive disorder, recurrent, moderate F33.1 Active 26700162 Problem Dementia with behavioral disturbance, unspecified dementia type F03.91 Active 6410059192782 Problem Mood disorder F39 Active 75684988 Problem Other chronic pain G89.29 Active 35795633 Problem Anxiety F41.9 Active 54107920 Problem Unsteady gait R26.81 Active 20444201 Problem History of brain shunt Z98.2 Active 641437179 Problem PTSD (post-traumatic stress disorder) F43.10 Active 12897133 Problem Sleep apnea, unspecified type G47.30 Active 95821601 Problem Degenerative brain disorder G31.9 Active 55506516 Problem Depressive disorder, not elsewhere classified F32.9 Active 22022801 Problem Other chronic pain G89.29 Active 96699592 ALLERGIES No Information ENCOUNTERS Encounter Location Date Diagnosis [place] [id number] [address] Apr, [facility] [id number] [place] [address] 76799- 1485 Mar, PTSD (post-traumatic stress disorder) F43.10 [facility] [id number] [place] [address] 80758- 3132 Mar, [facility] [address], [place] [address] Feb, PTSD (post-traumatic stress disorder) F43.10 [facility] [id number] [place] [address] 08045- 3774 Feb, PTSD (post-traumatic stress disorder) F43.10 [facility] [address], [place] [address] 92[address] Feb, Other chronic pain G89.29 and Pain in right knee M25.561 [facility] [id number] [place] [address] 63046- 4286 Feb, PTSD (post-traumatic stress disorder) F43.10 [facility] [address], [place] [address] Feb, [facility] [address] [id number] Jan, Dementia with behavioral disturbance, unspecified dementia type F03.91 ; Other chronic pain G89.29 and Plantar fasciitis M72.[address] [facility] [address] [id number] Jan, Daily headache R51 ; History of brain shunt Z98.2 ; Plantar fasciitis of left foot M72.2 ; Pain in right knee M25.561 and Pain in left knee M25.562 [facility] [id number] [place] [address] 28950- 1858 Jan, [facility] [id number] [place] [address] 74796- 5900 Jan, Pain in right knee M25.561 [facility] [id number] [place] [address] 76262- 0096 Jan, [facility] [id number] [place] [address] 54859 2546 Jan, [facility] [id number] [place] [address] 71596- 2546 Jan, [facility] [id number] [place] [address] 20702- 7277 December, Other chronic pain G89.29 [facility] [address] [id number] December, Pain in left knee M25.562 ; Pain in right leg M79.604 ; Other chronic pain G89.29 ; Localized edema R60.0 and PTSD (post-traumatic stress disorder) F43.10 [facility] [address] [address] December, [facility] [id number] [place] [address] 27859- 5013 December, PTSD (post-traumatic stress disorder) F43.10 [facility] [id number] [place] [address] 81125- 2206 December, [facility] [id number] [place] [address] 94800- 4137 December, [facility] [id number] [place] [address] 64471- 0628 December, Depressive disorder, not elsewhere classified F32.9 and Cognitive change R41.89 [facility] [address], [place] [address] 2512 Nov, Major depressive disorder, recurrent, moderate F33.1 [facility] [id number] [place] [address] 90134- 9318 Nov, [facility] [id number] [address] 3758 Nov, [facility] [id number] [place] [address] 54637- 9248 Nov, [facility] [id number] [place] [address] 97905- 1102 Nov, [facility] [id number] [place] [address] 98170- 6206 Nov, Mood disorder F39 [facility] [id number], [place] [address] 7701 Nov, Depressive disorder, not elsewhere classified F32.9 and Cognitive change R41.89 [facility] [id number], [place] [address] 8516 Nov, [facility] [address], [place] [address] 2546 Nov, [facility] [place] [address] [id number] Oct, Tear of skin of plantar aspect of right foot, initial encounter S91.311A [facility] [address], [place] [address] 7456 Oct, [facility] [address], [place] [address] 2546 Oct, [facility] [id number] [place] [address] [id number] Oct, [facility] [id number] [place] [address] [id number] Oct, [facility] [id number] [place] [address] [id number] Sep, [facility] [id number] [place] [address] [id number] Sep, [facility] [id number] [place] [address] [id number] Sep, [facility] [id number] [id number] Sep, [facility] [address], [place] [address] 5366 Sep, [facility] [id number], [place] [address] 2546 Sep, Other chronic pain G89.29 and Pain in left knee M25.562 [facility] [id number], [place] [address]- 2546 Sep, [facility] [place] [address] [id number] Sep, Plantar fasciitis of left foot M72.2 and Pain in right knee M25.561 [facility] [address] [id number] [id number] Aug, [facility] [id number] [address] 9842 Aug, [facility] [address], [place] [address]- 4385 Aug, [facility] [address], [place] [address]- 4589 Aug, Chronic daily headache R51 [facility] [id number] [place] [address] 65040- 1619 Aug, [facility] [place] [address] [id number] Aug, Edema, unspecified type R60.9 ; Weight gain R63.5 and Sleep apnea, unspecified type G47.30 [facility] [place] [address] [id number] Jul, Acute pain of left knee M25.562 and Plantar fasciitis of left foot M72.2 [facility] [id number], [place] [address]- 3196 Jul, [facility] [address] [id number] Jul, Plantar fasciitis of left foot M72.2 and Chronic daily headache R51 [facility] [id number] [id number] Jul, [facility] [address] [id number] [id number] Jun, [facility] [id number], [place] [address]- 9066 Jun, [facility] [id number] [id number] Jun, [facility] [id number] [id number] Jun, [facility] [id number] [id number] May, [facility] [id number] [place] [address] [id number] May, [facility] [address], [place] [address]- 6746 May, Stress incontinence of urine N39.3 [facility] [id number] [id number] May, [facility] [place] [address] [id number] May, Encounter for examination for admission to prison Z02.2 ; Toxoplasmosis B58.9 ; Seizures R56.9 ; Major depressive disorder, recurrent, moderate F33.1 ; Degenerative brain disorder G31.9 and Unsteady gait R26.81 [facility] [id number] [place] [address] [id number]- 4096 May, [facility] [id number] [place] [address] 19823- 8831 May, Mood disorder F39 [facility] [id number] [place] [address] 56863- 6234 May, [facility] [address], [place] [address]- 7595 Apr, [facility] [address], [place] [address]- 9154 Mar, [facility] [address], [place] [address]- 3536 Mar, [facility] [id number] [place] [address] 40584784- 3040 Mar, [facility] [address] [address] 7539 Mar, [facility] [id number] [place] [address] 41847- 7281 Mar, [facility] [place] [facility] [address] [id number] [place] [address]- 1049 Mar, Stress incontinence of urine N39.3 [facility] [address] [id number] [place] [id number] Mar, [facility] [place] [facility] [address] [id number] [place] [address]- 2376 Feb, [facility] [place] [facility] [address] [id number] [place] [address]- 8121 Feb, [facility] [place] [facility] [address] [id number] [place] [address]- 9198 Feb, [facility] [place] [facility] [address] [id number] [place] [address]- 0162 Feb, [facility] [place] [facility] [id number] [place] [address], [place] [address]- 4012 Feb, [facility] [place] [facility] [address] [id number] [place] [address]- 7570 Feb, [facility] [place] [facility] [address] [id number] [place] [address]- 2349 Feb, [facility] [place] [facility] [address] [facility] [id number] [place] [address]- 5647 Jan, [facility] [place] [facility] [address] [id number] [place] [address]- 3298 Jan, [facility] [place] [facility] [address] [id number], [place] [address]- 2291 Jan, [facility] [place] [facility] [address] [id number] [place] [address]- 7454 Jan, [facility] [place] [facility] [address] [id number] [place] [address]- 8914 Jan, [facility] [place] [facility] [address] [facility] [id number] [place] [address]- 1550 Jan, [facility] [place] [facility] [address], [place] [address]- 9847 Jan, [facility] [id number] [place] [address] 15868- 3032 Jan, General weakness R53.1 and Dementia with behavioral disturbance, unspecified dementia type F03.91 [facility] [id number] [place] [address] 71609- 1386 December, [facility] [id number] [place] [address] 08259- 6480 December, Other chronic pain G89.29 [facility] [id number] [place] [address] 08203- 6974 December, [facility] [id number] [place] [address] 41018- 2921 December, Unsteady gait R26.81 ; Generalized weakness R53.1 ; Unspecified mental disorder due to known physiological condition F09 and Generalized headaches R51 [facility] [id number] [place] [address] 28966- 6907 December, [facility] [id number] [place] [address] 08010- 6781 Nov, Anxiety F41.9 [facility] [id number] [place] [address] 62806- 6482 Nov, Mood disorder F39 [facility] [id number] [place] [address] 63501- 8575 Oct, [facility] [id number] [place] [address] 24081- 9211 Oct, Anxiety F41.9 [facility] [id number] [place] [address] 49785- 3482 Oct, Other chronic pain G89.29 [facility] [address], [place] [address]- 5292 Sep, Other chronic pain G89.29 ; Pain in left knee M25.562 ; Pain in right knee M25.561 and Anxiety F41.9 [facility] [address] 46735- 2462 Sep, MDD (major depressive disorder), recurrent episode, mild F33.0 ; Degenerative brain disorder G31.9 and Other penitentiary (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 Z79.899 [facility] [address] 82775- 0412 Sep, [facility] [address] 79922- 2083 Sep, [facility] [address] 55052- 6516 Sep, Mood disorder F39 ; Pain of left leg M79.605 and Pain in right leg M79.604 [facility] [address] 29199- 3715 Sep, Seizures R56.9 [facility] [address] 28824- 7298 Sep, [facility] [address] 87233- 1850 Sep, [facility] [id number] [place] [address] 10129- 7927 Sep, [facility] [address] 32179- 0399 Aug, Bronchitis J40 [facility] [id number] [place] [address] 44955- 8612 Aug, Bronchitis J40 and Encounter for drug screening Z02.83 [facility] [id number] [place] [address] 70870- 8833 Aug, [facility] [id number] [place] [address] 16415- 5406 Aug, Seizures R56.9 [facility] [address], [place] [address]- 5624 Aug, Seizures R56.9 [facility] [id number] [place] [address] 17810 2546 Aug, Major depressive disorder, recurrent, moderate F33.1 and Seizures R56.9 [facility] [id number] [place] [address] 79461- 9906 Aug, [facility] [id number] [place] [address] 40568- 3148 Aug, [facility] [id number] [place] [address] 68525- 0038 Aug, Major depressive disorder, recurrent, moderate F33.1 and Seizures R56.9 [facility] [id number] [place] [address] 91647- 9816 Jul, Major depressive disorder, recurrent, moderate F33.1 and Degenerative brain disorder G31.9 [facility] [id number] [place] [address] 17528- 5233 Jul, Seizures R56.9 [facility] [id number] [place] [address] 76491 2546 Apr, [facility] [id number] [place] [address] 51260- 7219 Apr, Major depressive disorder, recurrent, moderate F33.1 ; Anxiety F41.9 and Degenerative brain disorder G31.9 [facility] [id number] [place] [address] 88740 2547 Apr, Mood disorder F39 [facility] [id number] [place] [address] 52778 2546 Apr, Arthritis M19.90 [facility] [id number] [place] [address] 55770- 8596 Mar, Arthritis M19.90 ; Degenerative brain disorder G31.9 and Nonintractable generalized idiopathic epilepsy without status epilepticus G40.309 [facility] [place] [address] [facility] [id number] [place] [address]- 2964 Feb, IMMUNIZATIONS No Known Immunizations SOCIAL HISTORY [...] Surgical History 27 brain surgeries including shunt, [place] Surgical History neck fusion 09/26, 09/28 Surgical History right hand surgery Hospitalization History surgeries Hospitalization History seizures 12/2015
--- OUTSIDE RECORDS SUMMARY | 2018-07-01 14:25 | XMS REPORT ---
Author Author ESTEPHANIA IVAN Organization [facility] Address [address] [place] [address] Care Team Providers Care Water Softener Servicer Name Role Phone ESTEPHANIA IVAN Unavailable PROBLEMS Type Condition ICD9-CM Code WDE44-DD Code Onset Dates Condition Status SNOMED Code Problem Unspecified mental disorder due to known physiological condition F09 Active 345701818 Problem Major depressive disorder, recurrent, moderate F33.1 Active 10227873 Problem Dementia with behavioral disturbance, unspecified dementia type F03.91 Active 4800043531154 Problem Mood disorder F39 Active 86851581 Problem Other chronic pain G89.29 Active 95093811 Problem Anxiety F41.9 Active 63250532 Problem Unsteady gait R26.81 Active 02541219 Problem History of brain shunt Z98.2 Active 650864768 Problem PTSD (post-traumatic stress disorder) F43.10 Active 57825975 Problem Sleep apnea, unspecified type G47.30 Active 31566487 Problem Degenerative brain disorder G31.9 Active 27772419 Problem Depressive disorder, not elsewhere classified F32.9 Active 76055877 Problem Other chronic pain G89.29 Active 58258160 ALLERGIES No Information ENCOUNTERS Encounter Location Date Diagnosis [place] [id number] [place] [address]19- 9081 Apr, [place] [id number] [place] [address] 85119- 8037 Mar, PTSD (post-traumatic stress disorder) F43.10 [place] [address] [place] [id number] [place] [address] 53814- 3469 Mar, [place] [address] [place] [address] 10730- 7661 Feb, PTSD (post-traumatic stress disorder) F43.10 [place] [address] [address] 4[address] Feb, PTSD (post-traumatic stress disorder) F43.10 [facility] [address] [address] Feb, Other chronic pain G89.29 and Pain in right knee M25.561 [facility] [address] [place] [address] 60224- 2942 Feb, PTSD (post-traumatic stress disorder) F43.10 [facility] [address], [place] [address] Feb, [facility] [address] [id number] Jan, Dementia with behavioral disturbance, unspecified dementia type F03.91 ; Other chronic pain G89.29 and Plantar fasciitis M72.[address] [facility] [address] [id number] Jan, Daily headache R51 ; History of brain shunt Z98.2 ; Plantar fasciitis of left foot M72.2 ; Pain in right knee M25.561 and Pain in left knee M25.562 [facility] [address] [place] [address] 53684- 9010 Jan, [facility] [address], [place] [address] 7[address] Jan, Pain in right knee M25.561 [facility] [address], [place] [address] 48[address] Jan, [facility] [address] [address] 7606 Jan, [facility] [address] [place] [address] 22544- 2546 Jan, [facility] [address] [place] [id number] [address] 6424 December, Other chronic pain G89.29 [facility] [place] [address] [place] [id number] December, Pain in left knee M25.562 ; Pain in right leg M79.604 ; Other chronic pain G89.29 ; Localized edema R60.0 and PTSD (post-traumatic stress disorder) F43.10 [facility] [address], [place] [address] December, [facility] [address] [place] [address] [id number] [place] [address] 49612- 3656 December, PTSD (post-traumatic stress disorder) F43.10 [facility] [address] [place] [address] 50517- 7616 December, [facility] [address] [place] [address] [id number] [place] [address] 14329- 4090 December, [facility] [address] [place] [id number] [place] [address] 59052- 8565 December, Depressive disorder, not elsewhere classified F32.9 and Cognitive change R41.89 [facility] [address], [place] [address]- 0[address] Nov, Major depressive disorder, recurrent, moderate F33.1 [facility] [address] [address] 6793 Nov, [facility] [address] [address] 4517 Nov, [facility] [address] [place] [address] [id number] [place] [address] 26839 2548 Nov, [facility] [address], [place] [address]- 4386 Nov, [facility] [address] [place] [address] [id number] [place] [address] 28207- 2286 Nov, Mood disorder F39 [facility] [address], [place] [address] 2546 Nov, Depressive disorder, not elsewhere classified F32.9 and Cognitive change R41.89 [facility] [address], [place] [address]- 4076 Nov, [facility] [address], [place] [address]- 25[address] Nov, [facility] [place] [address] [place] [id number] Oct, Tear of skin of plantar aspect of right foot, initial encounter S91.311A [facility] [address], [place] [address] 2268 Oct, [facility] [address], [place] [address] 7326 Oct, [facility] [address] [place] [address] [id number] [place] [address] [id number] Oct, [facility] [id number] [place] [address] [id number] Oct, [facility] [address] [place] [address] [id number] [place] [address] [id number] Sep, [facility] [address] [id number] [place] [address] [id number] Sep, [facility] [address] [place] [id number] [id number] Sep, [facility] [id number] [id number] Sep, [facility] [address], [place] [address] 2546 Sep, [facility] [address] [id number], [place] [address]- 0916 Sep, Other chronic pain G89.29 and Pain in left knee M25.562 [facility] [address] [place] [id number], [place] [address]- 4446 Sep, [facility] [place] [address] [place] [id number] Sep, Plantar fasciitis of left foot M72.2 and Pain in right knee M25.561 [facility] [address] [id number] [id number] Aug, [facility] [address] [facility] [id number] [address] 1236 Aug, [facility] [address], [place] [address]- 2832 Aug, [facility] [address] [place] [address] [id number] [id number] Aug, Chronic daily headache R51 [facility] [address] [place] [id number], [place] [address] 6046 Aug, [facility] [address] [id number] Aug, Edema, unspecified type R60.9 ; Weight gain R63.5 and Sleep apnea, unspecified type G47.30 [facility] [place] [address] [place] [id number] Jul, Acute pain of left knee M25.562 and Plantar fasciitis of left foot M72.2 [facility] [address] [place] [id number], [place] [address]- 4056 Jul, [facility] [place] [address] [place] [id number] Jul, Plantar fasciitis of left foot M72.2 and Chronic daily headache R51 [facility] [id number] [id number] Jul, [facility] [address] [id number] [id number] Jun, [facility] [address] [place] [id number], [place] [address] Jun, [facility] [address] [id number] [id number] Jun, [facility] [id number] [id number] Jun, [facility] [id number] [id number] May, [facility] [address] [place] [id number] [id number] May, [facility] [address], [place] [address]- 2216 May, Stress incontinence of urine N39.3 [facility] [address] [place] [id number] [id number] May, [facility] [place] [address] [place] [id number] May, Encounter for examination for admission to correction Z02.2 ; Toxoplasmosis B58.9 ; Seizures R56.9 ; Major depressive disorder, recurrent, moderate F33.1 ; Degenerative brain disorder G31.9 and Unsteady gait R26.81 [facility] [address] [place] [address] [id number]- 0670 May, [facility] [address], [place] [address]- 4103 May, Mood disorder F39 [facility] [address] [address] 8466 May, [facility] [address], [place] [address]- 8823 Apr, [facility] [address], [place] [address]- 1164 Mar, [facility] [address], [place] [address]- 9129 Mar, [facility] [address] [address]- 3139 Mar, [facility] [address] [address] [address]99 Mar, [facility] [address] [place] [address] [id number] [place] [address], [place] [address]- 2011 Mar, [facility] [place] [facility] [address] [id number] [place] [address]- 9087 Mar, Stress incontinence of urine N39.3 [facility] [id number] [place] [id number] Mar, [facility] [place] [facility] [address] [id number] [place] [address]- 4076 Feb, [facility] [place] [facility] [address] [id number] [place] [address]- 8264 Feb, [facility] [place] [facility] [id number] [place] [address], [place] [address]- 7127 Feb, [facility] [place] [facility] [address] [id number] [place] [address]- 1043 Feb, [facility] [place] [facility] [id number] [place] [address], [place] [address]- 5233 Feb, [facility] [place] [facility] [address] [id number] [place] [address]- 9318 Feb, [facility] [place] [facility] [address] [id number] [place] [address]- 8837 Feb, [facility] [place] [facility] [address] [id number] [place] [address]- 9155 Jan, [facility] [place] [facility] [address] [id number] [place] [address]- 9059 Jan, [facility] [place] [facility] [address] [id number] [place] [address]- 0069 Jan, [facility] [place] [facility] [address] [id number] [place] [address]- 6465 Jan, [facility] [place] [facility] [address] [id number] [place] [address]- 5152 Jan, [facility] [place] [facility] [address] [id number] [place] 3457 Jan, [facility] [address], [place] [address]- 8765 Jan, [facility] [address] [place] [id number] [place] [address] 19974- 2196 Jan, General weakness R53.1 and Dementia with behavioral disturbance, unspecified dementia type F03.91 [facility] [address] [place] [id number] [place] [address] 63131- 4913 December, [facility] [address] [place] [address] [id number] [place] [address] 55779- 5177 December, Other chronic pain G89.29 [facility] [address] [place] [id number] [place] [address] 63835- 1596 December, [facility] [address] [place] [id number] [place] [address] 23622- 3776 December, Unsteady gait R26.81 ; Generalized weakness R53.1 ; Unspecified mental disorder due to known physiological condition F09 and Generalized headaches R51 [facility] [address] [place] [id number] [place] [address] 11019- 2236 December, [facility] [address] [place] [id number] [place] [address] 58119- 2120 Nov, Anxiety F41.9 [facility] [address] [place] [address] 01624- 9436 Nov, Mood disorder F39 [facility] [address] [place] [address] 05639- 1955 Oct, [facility] [address], [place] [address]- 6580 Oct, Anxiety F41.9 [facility] [address] [place] [address] 81856- 6361 Oct, Other chronic pain G89.29 [facility] [address] [place] [address] 56421- 2412 Sep, Other chronic pain G89.29 ; Pain in left knee M25.562 ; Pain in right knee M25.561 and Anxiety F41.9 [facility] [address] [address]90- 6295 Sep, MDD (major depressive disorder), recurrent episode, mild F33.0 ; Degenerative brain disorder G31.9 and Other mcc (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 Z79.899 [facility] [address] [address]69- 8873 Sep, [facility] [address] 26356- 8417 Sep, [place] [address] 08904- 5542 Sep, Mood disorder F39 ; Pain of left leg M79.605 and Pain in right leg M79.604 [place] [address] 48327- 3888 Sep, Seizures R56.9 [facility] [address] 57734- 6999 Sep, [facility] [address] 06866- 2227 Sep, [facility] [address] [place] [id number] [place] [address] 39444- 8479 Sep, [facility] [address] 98435- 6510 Aug, Bronchitis J40 [facility] [address] 17457- 3605 Aug, Bronchitis J40 and Encounter for drug screening Z02.83 [place] [address] 30840- 7370 Aug, [facility] [address] 68382- 4773 Aug, Seizures R56.9 [facility] [address], [place] [address]- 8320 Aug, Seizures R56.9 [facility] [address] [place] [id number] [place] [address] 34900- 1386 Aug, Major depressive disorder, recurrent, moderate F33.1 and Seizures R56.9 [facility] [address] [place] [address] [id number] [place] [address] 81267- 7754 Aug, [facility] [address] [place] [id number] [place] [address] 33835- 3915 Aug, [facility] [address] [place] [address] [id number] [place] [address] 03563- 7337 Aug, Major depressive disorder, recurrent, moderate F33.1 and Seizures R56.9 [facility] [address] [place] [address] [id number] [place] [address] 76971- 8676 Jul, Major depressive disorder, recurrent, moderate F33.1 and Degenerative brain disorder G31.9 [facility] [address] [place] [address] 07225- 5373 Jul, Seizures R56.9 [facility] [address] [place] [address] [id number] [place] [address] 66650- 1967 Apr, [facility] [address] [place] [address] 57717- 8436 Apr, Major depressive disorder, recurrent, moderate F33.1 ; Anxiety F41.9 and Degenerative brain disorder G31.9 [facility] [address] [place] [address] 52352- 1793 Apr, Mood disorder F39 [facility] [address] [place] [address] [id number] [place] [address] 16074- 0046 Apr, Arthritis M19.90 [facility] [address] [place] [address] 17653- 3683 Mar, Arthritis M19.90 ; Degenerative brain disorder G31.9 and Nonintractable generalized idiopathic epilepsy without status epilepticus G40.309 [facility] [address] [facility] [place] [id number] [place] [address]- 8306 Feb, IMMUNIZATIONS No Known Immunizations SOCIAL HISTORY Never Assessed REASON FOR VISIT Medication List Updated PLAN OF CARE VITAL SIGNS MEDICATIONS Medication Instructions Dosage Frequency Start Date End Date Duration Status Keppra 500 MG Orally 2 times a day 3 capsules 12h Active Divalproex Sodium 500 MG TAKE 3 TABLETS BY MOUTH TWICE DAILY 30 Active Percocet 7.5-325 MG Orally every 6 hrs 1 tablet as needed 6h December, 28 days Active Memantine HCl 5 MG TAKE 1 TABLET BY MOUTH ONCE DAILY 30 Active Neurontin 300 MG Orally 3 times a day 1 capsule 8h Aug, Active Advair Diskus 500-50 MCG/DOSE Inhalation Twice a day 1 puff 12h Active Potassium Chloride Noni ER 20 meq Orally Once a day 1 tablet with food 24h December, Apr, 30 day(s) Active Biofreeze 4 % Externally Once a day at bedtime 1 applicationt both ankles Active Omeprazole 20 mg Orally Once a day 1 capsules 24h Active Ditropan XL 5 mg Orally Once a day 1 tablet 24h Mar, 30 day(s) Active Naproxen 500 MG Orally every 12 hrs 1 tablet as needed 12h 30 Active Milk of Magnesia 1200 MG/15ML Orally Once a day constipation 30 ml as needed Active Clonazepam 1 MG Orally Twice a day 1/2 tab in the AM and 1 tab in the PM 12h Sep, Active Clonidine HCl 0.1 MG Orally Twice a day 1 tablet 12h Active Venlafaxine HCl ER 150 MG Orally Once a day 1 tablet with food Once a day Orally 30 day(s) 24h Jan, 14 days Active ProAir HFA 108 (90 Base) MCG/ACT Inhalation every 4 hrs 2 puffs as needed for cough or short of breath 4h 30 Active Furosemide 40 mg Orally Once a day in AM 1 tablet Sep, 30 day (s) Active Effexor XR 37.5 MG Orally Once a day (titration) 3 caps daily for 2 weeks then 2 caps daily for 2 weeks then 1 cap daily for 2 weeks then discontinue December, Active Ondansetron 4 MG Orally every 8 hrs PRN 1 tablet on the tongue and allow to dissolve Aug, Active Colace 100 mg Orally twice a day 1 capsule 12h Active Amitriptyline HCl 25 MG Orally [...] Surgical History 27 brain surgeries including shunt, [place] Surgical History neck fusion 09/26, 09/28 Surgical History right hand surgery Hospitalization History surgeries Hospitalization History seizures 12/2015
--- OUTSIDE RECORDS SUMMARY | 2018-07-01 14:26 | XMS REPORT ---
Author Author ESTEPHANIA IVAN Organization [facility] Address [address] [place] [address] Care Team Providers [facility] Technical Lead Senior Developer Name Role Phone ESTEPHANIA IVAN Unavailable PROBLEMS Type Condition ICD9-CM Code [id number] Code Onset Dates Condition Status SNOMED Code Problem Unspecified mental disorder due to known physiological condition F09 Active 841281815 Problem Major depressive disorder, recurrent, moderate F33.1 Active 04466693 Problem Dementia with behavioral disturbance, unspecified dementia type F03.91 Active 3777619512418 Problem Mood disorder F39 Active 90255607 Problem Other chronic pain G89.29 Active 30398709 Problem Anxiety F41.9 Active 60019643 Problem Unsteady gait R26.81 Active 00321036 Problem History of brain shunt Z98.2 Active 216315681 Problem PTSD (post-traumatic stress disorder) F43.10 Active 86004138 Problem Sleep apnea, unspecified type G47.30 Active 62933078 Problem Degenerative brain disorder G31.9 Active 16629206 Problem Depressive disorder, not elsewhere classified F32.9 Active 94285440 Problem Other chronic pain G89.29 Active 39109586 ALLERGIES No Information ENCOUNTERS Encounter Location Date Diagnosis [place] [id number] [place] [address] 57458- 1617 Apr, [facility] [id number] [place] [address] 13034- 6876 Mar, [place] [address] [place] [id number] [place] [address] 45230- 8545 Feb, PTSD (post-traumatic stress disorder) F43.10 [facility] [address] [address] 7[address] Feb, PTSD (post-traumatic stress disorder) F43.10 [place] [address] [address] 9686 Feb, Other chronic pain G89.29 and Pain in right knee M25.561 [facility] [address] [place] [id number] [place] [address] 07812- 8026 Feb, PTSD (post-traumatic stress disorder) F43.10 [place] [id number] [place] [address] 35532- 4898 Feb, [facility] [address] [id number] Jan, Dementia with behavioral disturbance, unspecified dementia type F03.91 ; Other chronic pain G89.29 and Plantar fasciitis M72.[address] [facility] [address] [id number] Jan, Daily headache R51 ; History of brain shunt Z98.2 ; Plantar fasciitis of left foot M72.2 ; Pain in right knee M25.561 and Pain in left knee M25.562 [place] [address], [place] [address] 9611 Jan, [place] [address] [place] [id number] [place] [address] 03182- 5842 Jan, Pain in right knee M25.561 [place] [address], [place] [address] 2661 Jan, [facility] [address] [address] 2546 Jan, [facility] [address] [address] 2543 Jan, [facility] [address] [place] [address] [id number] [place] [address] 20117 2543 December, Other chronic pain G89.[address] [facility] [address] [id number] December, Pain in left knee M25.562 ; Pain in right leg M79.604 ; Other chronic pain G89.29 ; Localized edema R60.0 and PTSD (post-traumatic stress disorder) F43.10 [facility] [address] [place] [id number] [place] [address] 86945- 3866 December, [facility] [address] [place] [id number] [place] [address] 98759- 6406 December, PTSD (post-traumatic stress disorder) F43.10 [facility] [address] [place] [address] [id number] [place] [address] 65992- 1096 December, [facility] [address] [place] [address] [id number] [place] [address] 62485- 0766 December, [facility] [address] [place] [address] [id number] [place] [address] 41085- 5776 December, Depressive disorder, not elsewhere classified F32.9 and Cognitive change R41.89 [facility] [address] [place] [id number] [place] [address] 06925- 8859 Nov, Major depressive disorder, recurrent, moderate F33.1 [facility] [address] [place] [id number] [place] [address] 46688- 3012 Nov, [facility] [address] [place] [id number] [place] [address] 30786- 7098 Nov, [facility] [address] [place] [id number] [place] [address] 58708- 6982 Nov, [facility] [address] [place] [address] [id number] [place] [address] 41701- 9416 Nov, [facility] [address] [place] [id number] [place] [address] 28498- 6459 Nov, Mood disorder F39 [facility] [address] [place] [id number] [place] [address] 31574- 3956 Nov, Depressive disorder, not elsewhere classified F32.9 and Cognitive change R41.89 [facility] [address] [place] [id number] [place] [address] 55590- 1938 Nov, [place] [address] [place] [id number] [address] 4776 Nov, [facility] [place] [address] [place] [id number] Oct, Tear of skin of plantar aspect of right foot, initial encounter S91.311A [facility] [address] [place] [id number] [address] 2545 Oct, [facility] [address], [place] [address]- 2546 Oct, [facility] [address] [place] [id number] [place] [address] [id number] Oct, [facility] [address] [place] [id number] [place] [address] [id number] Oct, [facility] [address] [place] [address] [id number] [place] [address] [id number] Sep, [facility] [address] [place] [address] [id number] [place] [address] [id number] Sep, [facility] [address] [place] [address] [id number] [place] [address] [id number] Sep, [facility] [address] [place] [address] [id number] [place] [address] [id number] Sep, [facility] [address], [place] [address] 2546 Sep, [facility] [address], [place] [address]- 2546 Sep, Other chronic pain G89.29 and Pain in left knee M25.562 [facility] [address] [place] [address] 44655- 7366 Sep, [facility] [place] [address] [place] [id number] Sep, Plantar fasciitis of left foot M72.2 and Pain in right knee M25.561 [facility] [address] [place] [id number] [place] [address] [id number] Aug, [facility] [address] [facility] [id number], [place] [address]- 3763 Aug, [facility] [address] [facility] [id number] [address]- 2206 Aug, [facility] [address] [facility] [id number], [place] [address]- 2446 Aug, Chronic daily headache R51 [facility] [address] [facility] [id number], [place] [address]- 7896 Aug, [facility] [place] [address] [place] [id number] Aug, Edema, unspecified type R60.9 ; Weight gain R63.5 and Sleep apnea, unspecified type G47.30 [facility] [place] [address] [place] [id number] Jul, Acute pain of left knee M25.562 and Plantar fasciitis of left foot M72.2 [facility] [address] [facility] [id number], [place] [address]- 1836 Jul, [facility] [place] [address] [place] [id number] Jul, Plantar fasciitis of left foot M72.2 and Chronic daily headache R51 [facility] [address] [id number] [id number] Jul, [facility] [address] [id number] [id number] Jun, [facility] [address] [facility] [id number], [place] [address]- 3816 Jun, [facility] [address] [id number] [id number] Jun, [facility] [address] [id number] [id number] Jun, [facility] [address] [id number] [id number] May, [facility] [address] [id number] [id number] May, [facility] [address] [place] [id number] [place] [address] [id number]- [id number] May, Stress incontinence of urine N39.3 [facility] [address] [place] [address] [id number] [id number] May, [facility] [address] [place] [id number] May, Encounter for examination for admission to [facility] Z02.2 ; Toxoplasmosis B58.9 ; Seizures R56.9 ; Major depressive disorder, recurrent, moderate F33.1 ; Degenerative brain disorder G31.9 and Unsteady gait R26.81 [facility] [address], [place] [address]- 3319 May, [facility] [address] [place] [id number] [place] [address] 02357- 2943 May, Mood disorder F39 [facility] [address] [place] [id number] [place] [address] 46051- 4625 May, [facility] [address] [place] [id number] [place] [address] 44902- 4486 Apr, [facility] [address], [place] [address]- 6753 Mar, [facility] [address] [place] [id number], [place] [address]- 8761 Mar, [facility] [address], [place] [address]- 1646 Mar, [facility] [address] [place] [id number] [place] [address] 76729- 3473 Mar, [facility] [address], [place] [address]- 9536 Mar, [facility] [id number] [place] [address] 78835- 1481 Mar, Stress incontinence of urine N39.3 [facility] [address] [place] [id number] [place] [id number] Mar, [facility] [place] [facility] [address] [id number] [place]- 3384 Feb, [facility] [place] [facility] [address] [id number] [place] 6219 Feb, [facility] [place] [facility] [address] [id number] [place] [address]- 0275 Feb, [facility] [place] [facility] [address] [id number] [place] [address]- 1481 Feb, [facility] [place] [facility] [address] [id number] [place] [address]- 7093 Feb, [facility] [place] [facility] [address] [id number] [place] 0980 Feb, [facility] [place] [facility] [address] [id number] [place] [address]- 2968 Feb, [facility] [place] [facility] [address] [id number] [place] [address]- 5114 Jan, [facility] [place] [facility] [address] [id number] [place] [address]- 9708 Jan, [facility] [place] [facility] [address] [id number] [place] [address]- 3741 Jan, [facility] [place] [facility] [address] [id number] [place] [address]- 2364 Jan, [facility] [place] [facility] [address] [id number] [place] [address]- 9908 Jan, [facility] [place] [facility] [address] [id number] [place]- 5115 Jan, [facility] [place] [facility] [address] [id number] [place] 1656 Jan, [facility] [place] [facility] [address], [place] [address]- 0449 Jan, General weakness R53.1 and Dementia with behavioral disturbance, unspecified dementia type F03.91 [facility] [address] [place] [id number] [place] [address] 37284- 0195 December, [facility] [address] [place] [address] [id number] [place] [address] 07080- 5010 December, Other chronic pain G89.29 [facility] [address] [place] [id number] [place] [address] 54158- 8863 December, [facility] [address] [place] [address] [id number] [place] [address] 16855- 6713 December, Unsteady gait R26.81 ; Generalized weakness R53.1 ; Unspecified mental disorder due to known physiological condition F09 and Generalized headaches R51 [facility] [address] [place] [id number] [place] [address] 00204- 3194 December, [facility] [address] [place] [id number] [place] [address] 96138- 1291 Nov, Anxiety F41.9 [facility] [address] [place] [id number] [place] [address] 47881- 6666 Nov, Mood disorder F39 [facility] [address] [place] [address] 15572- 8748 Oct, [facility] [address] [place] [id number] [place] [address] 22232- 5859 Oct, Anxiety F41.9 [facility] [address] [place] [address] 03116- 6815 Oct, Other chronic pain G89.29 [facility] [address] [place] [id number] [place] [address] 95923- 5846 Sep, Other chronic pain G89.29 ; Pain in left knee M25.562 ; Pain in right knee M25.561 and Anxiety F41.9 [facility] [address] [place] [id number] [place] [address] 22831- 4682 Sep, MDD (major depressive disorder), recurrent episode, mild F33.0 ; Degenerative brain disorder G31.9 and 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 [facility] [address] [place] [id number] [place] [address] 60773- 3375 Sep, [facility] [address] 51539- 7068 Sep, [facility] [address] [place] [id number] [place] [address] 78851- 8959 Sep, Mood disorder F39 ; Pain of left leg M79.605 and Pain in right leg M79.604 [facility] [address] [id number] [place] [address] 87464- 2748 14 Sep, 2016 Seizures R56.9 [facility] [address] 96769- 0176 Sep, [facility] [address] [place] [id number] [place] [address] 99087- 0452 Sep, [facility] [address] [id number] [place] [address] 73968- 1569 Sep, [facility] [address] [id number] [place] [address] 16659- 1935 Aug, Bronchitis J40 [facility] [address] [id number] [place] [address] 25475- 0577 Aug, Bronchitis J40 and Encounter for drug screening Z02.83 [facility] [address] 62703- 9668 Aug, [facility] [address] [place] [id number] [place] [address] 85924- 2143 Aug, Seizures R56.9 [facility] [address] 95648- 2540 Aug, Seizures R56.9 [facility] [id number] [place] [address] 72245- 1315 Aug, Major depressive disorder, recurrent, moderate F33.1 and Seizures R56.9 [facility] [id number] [place] [address] 50776- 0888 Aug, [facility] [address] [id number] [place] [address] 57847- 4102 Aug, [facility] [address] [id number] [place] [address] 84295- 4793 Aug, Major depressive disorder, recurrent, moderate F33.1 and Seizures R56.9 [place] [address] [place] [id number] [place] [address] 53977- 2576 Jul, Major depressive disorder, recurrent, moderate F33.1 and Degenerative brain disorder G31.9 [place] [address] [place] [id number] [place] [address] 12016- 5216 Jul, Seizures R56.9 [facility] [address] [id number] [place] [address] 26825- 5952 Apr, [place] [address] [id number] [place] [address] 54102- 3690 Apr, Major depressive disorder, recurrent, moderate F33.1 ; Anxiety F41.9 and Degenerative brain disorder G31.9 [place] [id number] [place] [address] 11006- 1823 Apr, Mood disorder F39 [place] [id number] [place] [address] 58834- 9633 Apr, Arthritis M19.90 [facility] [address] [id number] [place] [address] 70281- 3027 Mar, Arthritis M19.90 ; Degenerative brain disorder G31.9 and Nonintractable generalized idiopathic epilepsy without status epilepticus G40.309 [place] [address] [place] [id number] [place] [address] 03000- 2647 Feb, IMMUNIZATIONS No Known Immunizations SOCIAL HISTORY Never Assessed REASON FOR VISIT Refill request PLAN OF CARE VITAL SIGNS MEDICATIONS Medication Instructions Dosage Frequency Start Date End Date Duration Status Clonidine HCl 0.1 MG Orally Twice a [...] Surgical History 27 brain surgeries including shunt, [place] Surgical History neck fusion 09/26, 09/28 Surgical History right hand surgery Hospitalization History surgeries Hospitalization History seizures 12/2015
--- OUTSIDE RECORDS SUMMARY | 2018-07-01 14:26 | XMS REPORT ---
Author Author MADELYN HAHN Organization [facility] Address [address] [place] [address] Care Team Providers Care Cardroom Worker Name Role Phone MADELYN HAHN Unavailable PROBLEMS Type Condition ICD9-CM Code ZWB41-CV Code Onset Dates Condition Status SNOMED Code Problem Unspecified mental disorder due to known physiological condition F09 Active 270958626 Problem Major depressive disorder, recurrent, moderate F33.1 Active 02958498 Problem Dementia with behavioral disturbance, unspecified dementia type F03.91 Active 5575575851287 Problem Mood disorder F39 Active 79244150 Problem Other chronic pain G89.29 Active 90329967 Problem Anxiety F41.9 Active 89561504 Problem Unsteady gait R26.81 Active 60914403 Problem History of brain shunt Z98.2 Active 339673739 Problem PTSD (post-traumatic stress disorder) F43.10 Active 66346560 Problem Sleep apnea, unspecified type G47.30 Active 57494318 Problem Degenerative brain disorder G31.9 Active 77172605 Problem Depressive disorder, not elsewhere classified F32.9 Active 78741801 Problem Other chronic pain G89.29 Active 91057572 ALLERGIES No Information ENCOUNTERS Encounter Location Date Diagnosis [place] [id number] [place] [address] 43976- 7119 Apr, [facility] [id number] [place] [address] 34011- 7596 Mar, [facility] [id number] [place] [address] 55922- 6506 Feb, PTSD (post-traumatic stress disorder) F43.10 [facility] [id number] [place] [address] 00212- 8967 Feb, PTSD (post-traumatic stress disorder) F43.10 [facility] [address] [address] 1661 Feb, Other chronic pain G89.29 and Pain in right knee M25.561 [facility] [id number] [place] [address] 79733- 1806 Feb, PTSD (post-traumatic stress disorder) F43.10 [place] [address] [place] [address] 17878- 2507 Feb, [facility] [address] [id number] Jan, Dementia with behavioral disturbance, unspecified dementia type F03.91 ; Other chronic pain G89.29 and Plantar fasciitis M72.[address] [facility] [address] [id number] Jan, Daily headache R51 ; History of brain shunt Z98.2 ; Plantar fasciitis of left foot M72.2 ; Pain in right knee M25.561 and Pain in left knee M25.562 [place] [address] [place] [address] 42808- 1226 14 Jan, 2018 [place] [id number] [place] [address] 36528- 6417 Jan, Pain in right knee M25.561 [place] [address] [place] [address] 48689- 7784 Jan, [facility] [id number] [place] [address] 78000 2544 Jan, [facility] [address] [place] [address] 13307 2540 Jan, [facility] [id number] [place] [address] 80739- 2093 December, Other chronic pain G89.[address] [facility] [address] [id number] December, Pain in left knee M25.562 ; Pain in right leg M79.604 ; Other chronic pain G89.29 ; Localized edema R60.0 and PTSD (post-traumatic stress disorder) F43.10 [facility] [id number] [place] [address] 29835- 6386 December, [facility] [id number] [place] [address] 60607- 0396 December, PTSD (post-traumatic stress disorder) F43.10 [facility] [address] 52780- 5366 December, [facility] [id number] [place] [address] 16993- 3059 December, [facility] [address] 89379- 3449 December, Depressive disorder, not elsewhere classified F32.9 and Cognitive change R41.89 [facility] [id number] [place] [address] 71933- 4406 Nov, Major depressive disorder, recurrent, moderate F33.1 [facility] [id number] [place] [address] 81989- 2540 Nov, [facility] [id number] [place] [address] 21013- 5116 Nov, [facility] [id number] [place] [address] 18067- 7678 Nov, [facility] [id number] [place] [address] 30639- 5917 Nov, [facility] [id number] [place] [address] 94703- 3681 Nov, Mood disorder F39 [facility] [id number] [place] [address] 86358- 3763 Nov, Depressive disorder, not elsewhere classified F32.9 and Cognitive change R41.89 [facility] [id number] [place] [address] 02836- 1791 Nov, [facility] [id number] [address] 2546 Nov, [facility] [address] [place] [id number] Oct, Tear of skin of plantar aspect of right foot, initial encounter S91.311A [facility] [id number] [address] 9836 Oct, [facility] [address] [address] 8336 Oct, [facility] [id number] [place] [id number] Oct, [facility] [id number] [place] [address] [id number] Oct, [facility] [id number] [id number] Sep, [facility] [id number] [place] [address] [id number] Sep, [facility] [id number] [place] [address] [id number] Sep, [facility] [id number] [place] [address] [id number] Sep, [facility] [address] [address]- 5416 Sep, [facility] [address] [address]- 2546 Sep, Other chronic pain G89.29 and Pain in left knee M25.562 [facility] [address] [address] 2546 Sep, [facility] [address] [place] [id number] Sep, Plantar fasciitis of left foot M72.2 and Pain in right knee M25.561 [facility] [id number] [place] [address] [id number] Aug, [facility] [address] [facility] [id number] [place] [address] 9441 Aug, [facility] [address] [facility] [id number] [place] [address]- 5226 Aug, [facility] [address] [facility] [id number] [place] [address]- 7099 Aug, Chronic daily headache R51 [facility] [address] [facility] [id number] [place] [address]- 4108 Aug, [facility] [address] [place] [id number] Aug, Edema, unspecified type R60.9 ; Weight gain R63.5 and Sleep apnea, unspecified type G47.30 [facility] [address] [place] [id number] Jul, Acute pain of left knee M25.562 and Plantar fasciitis of left foot M72.2 [facility] [address] [facility] [id number] [place] [address]- 5042 Jul, [facility] [address] [place] [id number] Jul, Plantar fasciitis of left foot M72.2 and Chronic daily headache R51 [facility] [address] [id number] [place] [id number] Jul, [facility] [address] [id number] [place] [id number] Jun, [facility] [address] [facility] [id number] [address]- 9611 Jun, [facility] [address] [id number] [place] [id number] Jun, [facility] [address] [id number] [place] [id number] Jun, [facility] [address] [id number] [place] [id number] May, [facility] [id number] [place] [id number] May, [facility] [id number] [place] [address] 76316- 9409 May, Stress incontinence of urine N39.3 [facility] [id number] [id number] May, [facility] [address] [place] [id number] May, Encounter for examination for admission to shelter Z02.2 ; Toxoplasmosis B58.9 ; Seizures R56.9 ; Major depressive disorder, recurrent, moderate F33.1 ; Degenerative brain disorder G31.9 and Unsteady gait R26.81 [facility] [id number] [place] [address] 65748- 8943 May, [facility] [id number] [place] [address] 34193- 0590 May, Mood disorder F39 [facility] [id number] [place] [address] 06630- 6292 May, [facility] [id number] [place] [address] 35942- 8475 Apr, [facility] [address] [place] [address] 52206- 0981 Mar, [facility] [id number] [place] [address] 00645- 6625 Mar, [facility] [address] [place] [address] 68226- 4162 Mar, [facility] [id number] [place] [address] 19906- 4180 Mar, [facility] [id number] [address]- 1199 Mar, [facility] [id number] [place] [address] 47116- 3144 Mar, Stress incontinence of urine N39.3 [facility] [address] [id number] [place] [id number] Mar, [facility] [place] [facility] [address] [id number] [place] [address]- 9072 Feb, [facility] [place] [facility] [address] [id number] [place] 3913 Feb, [facility] [place] [facility] [address] [id number] [place] [address]- 6888 Feb, [facility] [place] [facility] [address] [id number] [place] [address]- 5254 Feb, [facility] [place] [facility] [address] [id number] [place] [address]- 4782 Feb, [facility] [place] [facility] [address] [id number] [place] [address]- 9731 Feb, [facility] [place] [facility] [address] [id number] [place] [address]- 5297 Feb, [facility] [place] [facility] [address] [id number] [place] [address]- 2808 Jan, [facility] [place] [facility] [address] [id number] [place] [address]- 3905 Jan, [facility] [place] [facility] [address] [id number] [place] [address]- 9699 Jan, [facility] [place] [facility] [address] [id number] [place] [address]- 1399 Jan, [facility] [place] [facility] [address] [id number] [place] [address]- 2997 Jan, [facility] [place] [facility] [address] [id number] [place] 9265 Jan, [facility] [place] [facility] [address] [id number] [place] 4889 Jan, [facility] [place] [facility] [address] [address]- 3255 Jan, General weakness R53.1 and Dementia with behavioral disturbance, unspecified dementia type F03.91 [facility] [id number] [place] [address] 23045- 9874 December, [facility] [id number] [place] [address] 79521- 1134 December, Other chronic pain G89.29 [facility] [id number] [place] [address] 92551- 2589 December, [facility] [id number] [place] [address] 73639- 3275 December, Unsteady gait R26.81 ; Generalized weakness R53.1 ; Unspecified mental disorder due to known physiological condition F09 and Generalized headaches R51 [facility] [id number] [place] [address] 75506- 7838 December, [facility] [id number] [place] [address] 07479- 2587 Nov, Anxiety F41.9 [facility] [id number] [place] [address] 35535- 1851 Nov, Mood disorder F39 [facility] [id number] [place] [address] 95118- 8139 Oct, [facility] [id number] [place] [address] 80647- 7499 Oct, Anxiety F41.9 [facility] [id number] [place] [address] 57587- 8438 Oct, Other chronic pain G89.29 [facility] [id number] [place] [address] 80023- 8449 Sep, Other chronic pain G89.29 ; Pain in left knee M25.562 ; Pain in right knee M25.561 and Anxiety F41.9 [facility] [id number] [place] [address] 46875- 3123 28 Sep, 2016 MDD (major depressive disorder), recurrent episode, mild F33.0 ; Degenerative brain disorder G31.9 and Other longterm (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 Z79.899 [facility] [id number] [place] [address] 66954- 5687 Sep, [facility] [address] 30115- 7512 Sep, [facility] [id number] [place] [address] 70253- 7461 Sep, Mood disorder F39 ; Pain of left leg M79.605 and Pain in right leg M79.604 [facility] [id number] [place] [address] 10861- 4352 14 Sep, 2016 Seizures R56.9 [facility] [address] 77334- 1953 Sep, [facility] [id number] [place] [address] 43177- 5327 Sep, [facility] [id number] [place] [address] 48432- 3406 Sep, [facility] [id number] [place] [address] 56936- 6825 Aug, Bronchitis J40 [facility] [id number] [place] [address] 54770- 7225 Aug, Bronchitis J40 and Encounter for drug screening Z02.83 [facility] [id number] [place] [address] 36555- 3870 Aug, [facility] [id number] [place] [address] 08631- 5292 Aug, Seizures R56.9 [facility] [id number] [place] [address] 60752- 6585 Aug, Seizures R56.9 [facility] [address] [address]- 8199 Aug, Major depressive disorder, recurrent, moderate F33.1 and Seizures R56.9 [facility] [address] [place] [address]- 9374 Aug, [facility] [address] [place] [address] 31506- 4626 Aug, [facility] [address] [place] [address] 91210- 0759 Aug, Major depressive disorder, recurrent, moderate F33.1 and Seizures R56.9 [facility] [id number] [place] [address] 40219- 7933 Jul, Major depressive disorder, recurrent, moderate F33.1 and Degenerative brain disorder G31.9 [place] [id number] [place] [address] 94534- 5597 Jul, Seizures R56.9 [facility] [id number] [place] [address] 50304- 7515 Apr, [facility] [id number] [place] [address] 63182- 1838 Apr, Major depressive disorder, recurrent, moderate F33.1 ; Anxiety F41.9 and Degenerative brain disorder G31.9 [place] [address] [place] [address] 39609- 3645 Apr, Mood disorder F39 [facility] [address] [place] [address] 80551- 1404 Apr, Arthritis M19.90 [facility] [id number] [place] [address] 92935- 3199 Mar, Arthritis M19.90 ; Degenerative brain disorder G31.9 and Nonintractable generalized idiopathic epilepsy without status epilepticus G40.309 [place] [id number] [place] [address] 89454- 9368 Feb, IMMUNIZATIONS No Known Immunizations SOCIAL HISTORY Never Assessed REASON FOR VISIT PA-effexor PLAN OF CARE VITAL SIGNS MEDICATIONS Unknown Medications RESULTS No Results PROCEDURES No Known procedures INSTRUCTIONS MEDICATIONS ADMINISTERED No Known Medications MEDICAL (GENERAL) HISTORY Type Description Date Medical History Toxoplasmosis Medical History migraine Medical History dementia Medical History depression Medical History alzheimers disease Medical History epilepsy Medical History COPD Surgical History cholecystectomy Surgical History appendectomy Surgical History 27 brain surgeries including shunt, [place] Surgical History neck fusion 09/26, 09/28 Surgical History right hand surgery Hospitalization History surgeries Hospitalization History seizures 12/2015
--- OUTSIDE RECORDS SUMMARY | 2018-07-01 14:26 | XMS REPORT ---
Author Author ESTEPHANIA IVAN Organization [facility] Address [address] [place] [address] Care Team Providers Care Vocational Aide Name Role Phone ESTEPHANIA IVAN Unavailable PROBLEMS Type Condition ICD9-CM Code [id number] Code Onset Dates Condition Status SNOMED Code Problem Unspecified mental disorder due to known physiological condition F09 Active 781303122 Problem Major depressive disorder, recurrent, moderate F33.1 Active 28425273 Problem Dementia with behavioral disturbance, unspecified dementia type F03.91 Active 3713734348185 Problem Mood disorder F39 Active 43731940 Problem Other chronic pain G89.29 Active 53447987 Problem Anxiety F41.9 Active 51583847 Problem Unsteady gait R26.81 Active 83534604 Problem History of brain shunt Z98.2 Active 209467856 Problem PTSD (post-traumatic stress disorder) F43.10 Active 32907851 Problem Sleep apnea, unspecified type G47.30 Active 55485694 Problem Degenerative brain disorder G31.9 Active 01806473 Problem Depressive disorder, not elsewhere classified F32.9 Active 69564972 Problem Other chronic pain G89.29 Active 20410529 ALLERGIES No Information ENCOUNTERS Encounter Location Date Diagnosis [place] [id number] [place] [address] 79216- 3928 Apr, [facility] [id number] [place] [address] 14842- 0376 Mar, [place] [address] [place] [id number] [place] [address] 77265- 7469 Feb, PTSD (post-traumatic stress disorder) F43.10 [facility] [address] [address] 7201 Feb, PTSD (post-traumatic stress disorder) F43.10 [place] [address] [address] 0324 Feb, Other chronic pain G89.29 and Pain in right knee M25.561 [facility] [address] [place] [address] [id number] [place] [address] 07563- 2316 Feb, PTSD (post-traumatic stress disorder) F43.10 [place] [address] [place] [address] 19033- 1602 Feb, [facility] [address] [id number] Jan, Dementia with behavioral disturbance, unspecified dementia type F03.91 ; Other chronic pain G89.29 and Plantar fasciitis M72.[address] [facility] [address] [id number] Jan, Daily headache R51 ; History of brain shunt Z98.2 ; Plantar fasciitis of left foot M72.2 ; Pain in right knee M25.561 and Pain in left knee M25.562 [place] [address] [address]8 Jan, [place] [address] [place] [id number] [place] [address] 02641- 5549 Jan, Pain in right knee M25.561 [place] [address] [address] 78[address] Jan, [facility] [address] [address] 2546 Jan, [facility] [address] [address] 2548 Jan, [facility] [address] [place] [address] [id number] [place] [address] 65860 2547 December, Other chronic pain G89.[address] [facility] [address] [id number] December, Pain in left knee M25.562 ; Pain in right leg M79.604 ; Other chronic pain G89.29 ; Localized edema R60.0 and PTSD (post-traumatic stress disorder) F43.10 [facility] [address] [place] [id number] [place] [address] 17957- 7956 December, [facility] [address] [place] [address] [id number] [place] [address] 91608- 8806 December, PTSD (post-traumatic stress disorder) F43.10 [facility] [address] [place] [address] [id number] [place] [address] 42465- 2886 December, [facility] [address] [place] [address] [id number] [place] [address] 31991- 4366 December, [facility] [address] [place] [address] [id number] [place] [address] 32140- 6190 December, Depressive disorder, not elsewhere classified F32.9 and Cognitive change R41.89 [facility] [address] [place] [address] [id number] [place] [address] 16232- 2058 Nov, Major depressive disorder, recurrent, moderate F33.1 [facility] [address] [address] [id number] [place] [address] 10170- 0581 Nov, [facility] [address] [place] [address] [id number] [place] [address] 55724- 9520 Nov, [facility] [address] [place] [address] [id number] [place] [address] 43749- 0576 Nov, [facility] [address] [place] [address] [id number] [place] [address] 79843- 7576 Nov, [facility] [address] [place] [address] [id number] [place] [address] 84419- 5964 Nov, Mood disorder F39 [facility] [address] [place] [address] [id number] [place] [address] 92466- 8126 Nov, Depressive disorder, not elsewhere classified F32.9 and Cognitive change R41.89 [facility] [address] [place] [address] [id number] [place] [address] 38357- 1350 Nov, [place] [address] [place] [id number] [address] 1676 Nov, [facility] [address] [id number] Oct, Tear of skin of plantar aspect of right foot, initial encounter S91.311A [facility] [address] [place] [id number] [address] 2540 Oct, [facility] [address], [place] [address] 2546 Oct, [facility] [address] [place] [id number] [place] [address] [id number] Oct, [facility] [address] [place] [id number] [place] [address] [id number] Oct, [facility] [address] [place] [id number] [place] [address] [id number] Sep, [facility] [address] [place] [address] [id number] [place] [address] [id number] Sep, [facility] [address] [place] [address] [id number] [place] [address] [id number] Sep, [facility] [address] [place] [address] [id number] [place] [address] [id number] Sep, [facility] [address], [place] [address] 2546 Sep, [facility] [address] [address]- 2546 Sep, Other chronic pain G89.29 and Pain in left knee M25.562 [facility] [address] [place] [address] 78773- 4886 Sep, [facility] [address] [id number] Sep, Plantar fasciitis of left foot M72.2 and Pain in right knee M25.561 [facility] [address] [place] [address] [id number] [place] [address] [id number] Aug, [facility] [address] [facility] [id number] [address]- 8578 Aug, [facility] [address] [facility] [id number] [address]- 2226 Aug, [facility] [address] [facility] [id number] [address]- 6192 Aug, Chronic daily headache R51 [facility] [address] [facility] [id number], [place] [address] 8086 Aug, [facility] [place] [address] [id number] Aug, Edema, unspecified type R60.9 ; Weight gain R63.5 and Sleep apnea, unspecified type G47.30 [facility] [place] [address] [id number] Jul, Acute pain of left knee M25.562 and Plantar fasciitis of left foot M72.2 [facility] [address] [facility] [id number] [address]- 8306 Jul, [facility] [address] [id number] Jul, Plantar fasciitis of left foot M72.2 and Chronic daily headache R51 [facility] [address] [id number] [id number] Jul, [facility] [address] [id number][place] [id number] Jun, [facility] [address] [facility] [id number], [place] [address]- 8426 Jun, [facility] [address] [id number] [id number] Jun, [facility] [address] [id number] [id number] Jun, [facility] [address] [id number] [id number] May, [facility] [address] [place] [id number] [id number] May, [facility] [address] [place] [id number] [place] [address] 37400434- 5888 May, Stress incontinence of urine N39.3 [facility] [address] [place] [id number] [id number] May, [facility] [address] [id number] May, Encounter for examination for admission to snf Z02.2 ; Toxoplasmosis B58.9 ; Seizures R56.9 ; Major depressive disorder, recurrent, moderate F33.1 ; Degenerative brain disorder G31.9 and Unsteady gait R26.81 [facility] [address], [place] [address]- 9097 May, [facility] [address] [place] [id number] [place] [address] 61390- 7747 May, Mood disorder F39 [facility] [address] [place] [id number] [place] [address] 54260- 2780 May, [facility] [address] [place] [id number] [place] [address] 56043- 1294 Apr, [facility] [address], [place] [address]- 5589 Mar, [facility] [address] [place] [id number] [address]- 6884 Mar, [facility] [address], [place] [address]- 7772 Mar, [facility] [address] [place] [id number] [place] [address] 64060- 8573 Mar, [facility] [address], [place] [address]- 0117 Mar, [facility] [address] [place] [address] 89239- 0318 Mar, Stress incontinence of urine N39.3 [facility] [address] [id number] [place] [id number] Mar, [facility] [place] [facility] [address] [id number] [place] [address] Feb, [facility] [place] [facility] [address] [id number] [place] 3176 Feb, [facility] [place] [facility] [address] [id number] [place] [address]- 8362 Feb, [facility] [place] [facility] [address] [id number] [place] [address]- 4563 Feb, [facility] [place] [facility] [address] [id number] [place] [address]- 5236 Feb, [facility] [place] [facility] [address] [id number] [place] 1113 Feb, [facility] [place] [facility] [address] [id number] [place] [address]- 2556 Feb, [facility] [place] [facility] [address] [id number] [place] [address]- 9112 Jan, [facility] [place] [facility] [address] [id number] [place] [address]- 7889 Jan, [facility] [place] [facility] [address] [id number] [place] [address]- 2096 Jan, [facility] [place] [facility] [address] [id number] [place] [address]- 6138 Jan, [facility] [place] [facility] [address] [id number] [place] [address]- 1215 Jan, [facility] [place] [facility] [address] [id number] [place] 7832 Jan, [facility] [place] [facility] [address] [id number] [place] 5099 Jan, [facility] [place] [facility] [address], [place] [address]- 4470 Jan, General weakness R53.1 and Dementia with behavioral disturbance, unspecified dementia type F03.91 [facility] [address] [place] [id number] [place] [address] 11450- 2839 December, [facility] [address] [place] [id number] [place] [address] 61401- 8581 December, Other chronic pain G89.29 [facility] [address] [place] [id number] [place] [address] 64392- 7564 December, [facility] [address] [place] [id number] [place] [address] 37312- 1562 December, Unsteady gait R26.81 ; Generalized weakness R53.1 ; Unspecified mental disorder due to known physiological condition F09 and Generalized headaches R51 [facility] [address] [place] [id number] [place] [address] 70529- 4176 December, [facility] [address] [place] [id number] [place] [address] 91618- 5869 Nov, Anxiety F41.9 [facility] [address] [place] [id number] [place] [address] 80354- 9947 Nov, Mood disorder F39 [facility] [address] [place] [address] 25576- 1331 Oct, [facility] [address] [place] [id number] [place] [address] 44150- 7577 Oct, Anxiety F41.9 [facility] [address] [place] [address] 93573- 9115 Oct, Other chronic pain G89.29 [facility] [address] [place] [id number] [place] [address] 25925- 5200 Sep, Other chronic pain G89.29 ; Pain in left knee M25.562 ; Pain in right knee M25.561 and Anxiety F41.9 [facility] [address] [place] [id number] [place] [address] 69949- 4341 Sep, MDD (major depressive disorder), recurrent episode, mild F33.0 ; Degenerative brain disorder G31.9 and 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 [facility] [address] [place] [id number] [place] [address] 35948- 9459 Sep, [facility] [address] 85250- 2837 Sep, [facility] [address] [place] [id number] [place] [address] 29413- 2174 Sep, Mood disorder F39 ; Pain of left leg M79.605 and Pain in right leg M79.604 [facility] [address] [place] [id number] [place] [address] 03792- 9904 14 Sep, 2016 Seizures R56.9 [facility] [address] 86273- 2786 Sep, [facility] [address] [place] [id number] [place] [address] 33929- 1548 Sep, [facility] [address] [place] [id number] [place] [address] 74754- 4985 Sep, [facility] [address] [place] [id number] [place] [address] 93382- 8903 Aug, Bronchitis J40 [facility] [address] [place] [id number] [place] [address] 02571- 5885 Aug, Bronchitis J40 and Encounter for drug screening Z02.83 [facility] [address] 01811- 1659 Aug, [facility] [address] [place] [id number] [place] [address] 58970- 6242 Aug, Seizures R56.9 [facility] [address] 56010- 2541 Aug, Seizures R56.9 [facility] [address] [place] [address] 38973- 3517 Aug, Major depressive disorder, recurrent, moderate F33.1 and Seizures R56.9 [facility] [address] [place] [address] 86756- 2055 Aug, [facility] [address] [place] [id number] [place] [address] 84549- 4951 Aug, [facility] [address] [place] [id number] [place] [address] 44470- 1876 Aug, Major depressive disorder, recurrent, moderate F33.1 and Seizures R56.9 [place] [address] [place] [address] [id number] [place] [address] 03111- 9713 Jul, Major depressive disorder, recurrent, moderate F33.1 and Degenerative brain disorder G31.9 [place] [address] [place] [id number] [place] [address] 00904- 0092 Jul, Seizures R56.9 [facility] [address] [place] [id number] [place] [address] 57163- 7955 Apr, [place] [address] [place] [id number] [place] [address] 60363- 2644 Apr, Major depressive disorder, recurrent, moderate F33.1 ; Anxiety F41.9 and Degenerative brain disorder G31.9 [place] [address] [place] [address] 24661- 0661 Apr, Mood disorder F39 [place] [address] [place] [address] 46394- 0594 Apr, Arthritis M19.90 [facility] [address] [place] [id number] [place] [address] 48894- 6847 Mar, Arthritis M19.90 ; Degenerative brain disorder G31.9 and Nonintractable generalized idiopathic epilepsy without status epilepticus G40.309 [place] [address] [place] [id number] [place] [address] 01374- 1454 Feb, IMMUNIZATIONS No Known Immunizations SOCIAL HISTORY [...] Surgical History 27 brain surgeries including shunt, [place] Surgical History neck fusion 09/26, 09/28 Surgical History right hand surgery Hospitalization History surgeries Hospitalization History seizures 12/2015
--- OUTSIDE RECORDS SUMMARY | 2018-07-01 14:27 | XMS REPORT ---
Author Author ESTEPHANIA IVAN Organization [facility] Address [address] [place] [address] Care Team Providers Care Instructor Painting Name Role Phone ESTEPHANIA IVAN Unavailable PROBLEMS Type Condition ICD9-CM Code [id number] Code Onset Dates Condition Status SNOMED Code Problem Unspecified mental disorder due to known physiological condition F09 Active 214890342 Problem Major depressive disorder, recurrent, moderate F33.1 Active 50560579 Problem Dementia with behavioral disturbance, unspecified dementia type F03.91 Active 3846041171579 Problem Mood disorder F39 Active 33374146 Problem Other chronic pain G89.29 Active 22011360 Problem Anxiety F41.9 Active 28176954 Problem Unsteady gait R26.81 Active 10274869 Problem History of brain shunt Z98.2 Active 138560857 Problem PTSD (post-traumatic stress disorder) F43.10 Active 69304012 Problem Sleep apnea, unspecified type G47.30 Active 62119859 Problem Degenerative brain disorder G31.9 Active 09909316 Problem Depressive disorder, not elsewhere classified F32.9 Active 52980524 Problem Other chronic pain G89.29 Active 38745990 ALLERGIES No Information ENCOUNTERS Encounter Location Date Diagnosis [facility] [address] [place] [address] 46522- 6376 Apr, [facility] [address] [place] [address] 52777- 8858 Feb, PTSD (post-traumatic stress disorder) F43.10 [facility] [address] [place] [address] 59265- 2534 Feb, PTSD (post-traumatic stress disorder) F43.10 [facility] [id number], [place] [address] 139[address] Feb, Other chronic pain G89.29 and Pain in right knee M25.561 [facility] [address], [place] [address] 2546 Feb, PTSD (post-traumatic stress disorder) F43.10 [facility] [address], [place] [address] 2546 Feb, [facility] [address] [place] [id number] Jan, Dementia with behavioral disturbance, unspecified dementia type F03.91 ; Other chronic pain G89.29 and Plantar fasciitis M72.2 [facility] [address] [place] [id number] Jan, Daily headache R51 ; History of brain shunt Z98.2 ; Plantar fasciitis of left foot M72.2 ; Pain in right knee M25.561 and Pain in left knee M25.562 [facility] [address] [place] [address] 59751- 2600 14 Jan, 2018 [facility] [id number] [place] [address] 85833 2547 Jan, Pain in right knee M25.561 [facility] [id number] [place] [address] 54607 2546 Jan, [facility] [id number] [place] [address] 00454 2542 Jan, [facility] [address] [place] [address] 01203 2546 Jan, [facility] [address] [place] [address] 59748 2546 December, Other chronic pain G89.[address] [facility] [address] [id number] December, Pain in left knee M25.562 ; Pain in right leg M79.604 ; Other chronic pain G89.29 ; Localized edema R60.0 and PTSD (post-traumatic stress disorder) F43.10 [facility] [address] [id number], [place] [address] December, [facility] [id number] [place] [address] 73282- 6244 December, PTSD (post-traumatic stress disorder) F43.10 [facility] [address] [id number], [place] [address] 3[address] December, [facility] [id number] [place] [address] 33523- 1395 December, [facility] [id number] [place] [address] 83651- 9981 December, Depressive disorder, not elsewhere classified F32.9 and Cognitive change R41.89 [facility] [id number] [place] [address] 16876- 0356 Nov, Major depressive disorder, recurrent, moderate F33.1 [facility] [id number] [place] [address] 00245- 1867 Nov, [facility] [id number] [place] [address] 53794- 6798 Nov, [facility] [id number] [place] [address] 93853- 4569 Nov, [facility] [address] [place] [address] 92288- 5011 Nov, [facility] [address] [place] [address] 91934- 8246 Nov, Mood disorder F39 [facility] [address] [place] [address] 31824- 6226 Nov, Depressive disorder, not elsewhere classified F32.9 and Cognitive change R41.89 [facility] [address], [place] [address] 1602 Nov, [facility] [address] [place] [address] 67258- 7583 Nov, [facility] [address] [place] [id number] Oct, Tear of skin of plantar aspect of right foot, initial encounter S91.311A [facility] [address], [place] [address] 00[address] Oct, [facility] [id number], [place] [address] 9475 Oct, [facility] [id number] [place] [address] [id number] Oct, [facility] [id number] [place] [address] [id number] Oct, [facility] [id number] [place] [address] [id number] Sep, [facility] [id number] [place] [address] [id number] Sep, [facility] [id number] [place] [address] [id number] Sep, [facility] [id number] [place] [address] [id number] Sep, [facility] [address] [address] Sep, [facility] [address] [address] Sep, Other chronic pain G89.29 and Pain in left knee M25.562 [facility] [id number], [place] [address] 6306 Sep, [facility] [address] [place] [id number] Sep, Plantar fasciitis of left foot M72.2 and Pain in right knee M25.561 [facility] [address] [id number] [id number] Aug, [facility] [address], [place] [address] 4577 Aug, [facility] [address] [facility] [facility] [id number], [place] [address] 5[address] Aug, [facility] [address] [facility] [address] [facility] [id number], [place] [address] 1266 Aug, Chronic daily headache R51 [facility] [address] [facility] [address] [facility] [id number], [place] [address] Aug, [facility] [address] [place] [id number] Aug, Edema, unspecified type R60.9 ; Weight gain R63.5 and Sleep apnea, unspecified type G47.[address] [facility] [address] [id number] Jul, Acute pain of left knee M25.562 and Plantar fasciitis of left foot M72.2 [facility] [id number], [place] [address] 7796 Jul, [facility] [address] [place] [id number] Jul, Plantar fasciitis of left foot M72.2 and Chronic daily headache R51 [facility] [address] [id number] [id number] Jul, [facility] [address] [id number] [id number] Jun, [facility] [address] [facility] [address] [facility] [id number], [place] [address] 2546 Jun, [facility] [address] [id number] [id number] Jun, [facility] [address] [id number] [id number] Jun, [facility] [address] [id number] [id number] May, [facility] [address] [id number] [id number] May, [facility] [address], [place] [address]- 6878 May, Stress incontinence of urine N39.3 [facility] [id number] [place] [address] [id number] May, [facility] [address] [id number] May, Encounter for examination for admission to halfway Z02.2 ; Toxoplasmosis B58.9 ; Seizures R56.9 ; Major depressive disorder, recurrent, moderate F33.1 ; Degenerative brain disorder G31.9 and Unsteady gait R26.81 [facility] [id number] [place] [address] 24136- 9126 May, [facility] [id number] [place] [address] 49657- 9191 May, Mood disorder F39 [facility] [id number] [place] [address] 84754- 8489 May, [facility] [id number] [place] [address] 58501- 6385 Apr, [facility] [id number] [place] [address] 13262- 0098 Mar, [facility] [id number] [place] [address] 88420- 8079 Mar, [facility] [id number] [place] [address] 45260- 4670 Mar, [facility] [address] [place] [address] 67927- 1429 Mar, [facility] [id number] [place] [address] 52780- 2848 Mar, [facility] [address], [place] [address]- 9797 Mar, Stress incontinence of urine N39.3 [facility] [id number] [place] [address] [id number] Mar, [facility] [place] [facility] [address] [id number] [place] [address]- 1458 Feb, [facility] [place] [facility] [address] [id number] [place] [address]- 7123 Feb, [facility] [place] [facility] [address] [facility] [address] [facility] [id number] [place] [address]- 4431 Feb, [facility] [place] [facility] [address] [id number] [place] [address]- 2161 Feb, [facility] [place] [facility] [address] [id number] [place] [address]- 0877 Feb, [facility] [place] [facility] [address] [facility] [address] [facility] [id number] [place] [address]- 4158 Feb, [facility] [place] [facility] [address] [facility] [address] [facility] [id number] [place] [address]- 0374 Feb, [facility] [place] [facility] [address] [facility] [address] [facility] [id number] [place] [address]- 7825 Jan, [facility] [place] [facility] [address] [facility] [address] [facility] [id number] [place] [address]- 6640 Jan, [facility] [place] [facility] [address] [facility] [address] [facility] [id number] [place] [address]- 1083 Jan, [facility] [place] [facility] [address] [facility] [address] [facility] [id number] [place] [address]- 1051 Jan, [facility] [place] [facility] [address] [facility] [address] [facility] [id number] [place] [address]- 6553 Jan, [facility] [place] [facility] [address] [facility] [address] [facility] [id number] [place] [address]- 9729 Jan, [facility] [place] [facility] [address] [facility] [facility] [id number] [place] 9132 Jan, [facility] [place] [facility] [address] [facility] [address] [facility] [id number] [place] 5514 Jan, General weakness R53.1 and Dementia with behavioral disturbance, unspecified dementia type F03.91 [facility] [address] [id number], [place] [address]- 5107 December, [facility] [id number] [place] [address]89 December, Other chronic pain G89.29 [facility] [id number] [place] [address] 28339- 5933 December, [facility] [id number] [place] [address] 03790- 6890 December, Unsteady gait R26.81 ; Generalized weakness R53.1 ; Unspecified mental disorder due to known physiological condition F09 and Generalized headaches R51 [facility] [id number] [place] [address] 64473- 0843 December, [facility] [id number] [place] [address] 60671- 5724 Nov, Anxiety F41.9 [facility] [id number] [place] [address] 06714- 6693 Nov, Mood disorder F39 [facility] [id number] [place] [address] 00739- 6145 Oct, [facility] [address] [place] [address] 75900- 7036 Oct, Anxiety F41.9 [facility] [id number] [place] [address] 42740- 2236 Oct, Other chronic pain G89.29 [facility] [id number] [place] [address] 74194- 6405 Sep, Other chronic pain G89.29 ; Pain in left knee M25.562 ; Pain in right knee M25.561 and Anxiety F41.9 [facility] [address], [place] [address]- 3334 Sep, MDD (major depressive disorder), recurrent episode, mild F33.0 ; Degenerative brain disorder G31.9 and 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 [facility] [id number] [place] [address] 01293- 4516 Sep, [facility] [id number] [place] [address] 62489- 5356 Sep, [facility] [address] 23872- 2999 Sep, Mood disorder F39 ; Pain of left leg M79.605 and Pain in right leg M79.604 [facility] [address] 74542- 6236 Sep, Seizures R56.9 [facility] [id number] [place] [address] 92502- 3741 Sep, [facility] [address] 98728- 4989 Sep, [facility] [id number] [place] [address] 11035- 3166 Sep, [facility] [id number] [place] [address] 83419- 6711 Aug, Bronchitis J40 [facility] [id number] [place] [address] 57884- 0304 Aug, Bronchitis J40 and Encounter for drug screening Z02.83 [facility] [id number] [place] [address] 56619- 1691 Aug, [facility] [id number] [place] [address] 79847- 4439 Aug, Seizures R56.9 [facility] [id number] [place] [address] 34445- 2546 Aug, Seizures R56.9 [facility] [address] 314557- 9263 Aug, Major depressive disorder, recurrent, moderate F33.1 and Seizures R56.9 [facility] [address] [place] [address] 80889- 7945 Aug, [facility] [id number] [place] [address] 21253- 4907 Aug, [facility] [id number] [place] [address] 69818- 8934 Aug, Major depressive disorder, recurrent, moderate F33.1 and Seizures R56.9 [facility] [id number] [place] [address] 29583- 6746 Jul, Major depressive disorder, recurrent, moderate F33.1 and Degenerative brain disorder G31.9 [facility] [id number] [place] [address] 56084- 8213 Jul, Seizures R56.9 [facility] [id number] [place] [address] 73677- 7162 Apr, [facility] [id number] [place] [address] 47491- 0826 Apr, Major depressive disorder, recurrent, moderate F33.1 ; Anxiety F41.9 and Degenerative brain disorder G31.9 [facility] [address] [place] [address] 92815- 9468 Apr, Mood disorder F39 [facility] [id number] [place] [address] 59774- 4372 Apr, Arthritis M19.90 [facility] [address] [place] [address] 50940- 4173 Mar, Arthritis M19.90 ; Degenerative brain disorder G31.9 and Nonintractable generalized idiopathic epilepsy without status epilepticus G40.309 [place] [address] [place] [address] 07034- 7151 Feb, IMMUNIZATIONS No Known Immunizations SOCIAL HISTORY Never Assessed REASON FOR VISIT Controlled Med Refill PLAN OF CARE VITAL SIGNS MEDICATIONS Medication Instructions Dosage Frequency Start Date End Date Duration Status [place] 10-325 MG Orally 3 times a day 1 tablet 8h December, 28 days Active RESULTS No Results PROCEDURES No Known procedures INSTRUCTIONS MEDICATIONS ADMINISTERED No Known Medications MEDICAL (GENERAL) HISTORY Type Description Date Medical History Toxoplasmosis Medical History migraine Medical History dementia Medical History depression Medical History alzheimers disease Medical History epilepsy Medical History COPD Surgical History cholecystectomy Surgical History appendectomy Surgical History 27 brain surgeries including shunt, [place] Surgical History neck fusion 09/26, 09/28 Surgical History right hand surgery Hospitalization History surgeries Hospitalization History seizures 12/2015
--- OUTSIDE RECORDS SUMMARY | 2018-07-01 14:27 | XMS REPORT ---
Author Author MADELYN HAHN Organization [facility] Address [address] [place] [address] Care Team Providers Care Commissary Helper Name Role Phone MADELYN HAHN Unavailable PROBLEMS Type Condition ICD9-CM Code [id number] Code Onset Dates Condition Status SNOMED Code Problem Unspecified mental disorder due to known physiological condition F09 Active 984905940 Problem Major depressive disorder, recurrent, moderate F33.1 Active 66710536 Problem Dementia with behavioral disturbance, unspecified dementia type F03.91 Active 5908040373844 Problem Mood disorder F39 Active 48250225 Problem Other chronic pain G89.29 Active 39034377 Problem Anxiety F41.9 Active 82679373 Problem Unsteady gait R26.81 Active 14527475 Problem History of brain shunt Z98.2 Active 494238138 Problem PTSD (post-traumatic stress disorder) F43.10 Active 61963841 Problem Sleep apnea, unspecified type G47.30 Active 89055230 Problem Degenerative brain disorder G31.9 Active 97063988 Problem Depressive disorder, not elsewhere classified F32.9 Active 44677016 Problem Other chronic pain G89.29 Active 60324235 ALLERGIES Substance Reaction Event Type Date Status Morphine Sulfate itching Drug Allergy December, Active ENCOUNTERS Encounter Location Date Diagnosis [facility] [id number] [address] Apr, [facility] [id number], [place] [address] Mar, [facility] [id number], [place] [address] 9[address] Feb, PTSD (post-traumatic stress disorder) F43.10 [facility] [id number] [address] 8[address] Feb, PTSD (post-traumatic stress disorder) F43.10 [facility] [id number] [address] 2547 Feb, Other chronic pain G89.29 and Pain in right knee M25.561 [facility] [address], [place] [address] 2546 Feb, PTSD (post-traumatic stress disorder) F43.10 [facility] [address], [place] [address] 2546 Feb, [facility] [address] [id number] Jan, Dementia with behavioral disturbance, unspecified dementia type F03.91 ; Other chronic pain G89.29 and Plantar fasciitis M72.[address] [facility] [address] [id number] Jan, Daily headache R51 ; History of brain shunt Z98.2 ; Plantar fasciitis of left foot M72.2 ; Pain in right knee M25.561 and Pain in left knee M25.562 [facility] [address], [place] [address] Jan, [facility] [id number] [place] [address]67 2546 Jan, Pain in right knee M25.561 [facility] [address], [place] [address] 2546 Jan, [facility] [address], [place] [address] 2546 Jan, [facility] [address], [place] [address] 2546 Jan, [facility] [id number] [place] [address] 2546 December, Other chronic pain G89.[address] [facility] [address] [id number] December, Pain in left knee M25.562 ; Pain in right leg M79.604 ; Other chronic pain G89.29 ; Localized edema R60.0 and PTSD (post-traumatic stress disorder) F43.10 [facility] [id number] [place] [address]3973- 6580 December, [facility] [id number] [place] [address] 51216- 5148 December, PTSD (post-traumatic stress disorder) F43.10 [facility] [id number] [place] [address] 24951- 7741 December, [facility] [id number] [place] [address] 93924- 0418 December, [facility] [id number] [place] [address] 67574- 8144 December, Depressive disorder, not elsewhere classified F32.9 and Cognitive change R41.89 [facility] [id number] [place] [address]30- [address] Nov, Major depressive disorder, recurrent, moderate F33.1 [facility] [id number] [place] [address] 97316- 3837 Nov, [facility] [id number] [place] [address] 75578- 3813 Nov, [facility] [id number] [place] [address] 87451- 0385 Nov, [facility] [id number] [place] [address] 74159- 6714 Nov, [facility] [id number] [place] [address] 38031- 9896 Nov, Mood disorder F39 [facility] [id number] [place] [address] 86780- 8158 Nov, Depressive disorder, not elsewhere classified F32.9 and Cognitive change R41.89 [facility] [id number] [place] [address] 15671- 7906 Nov, [facility] [id number], [place] [address] Nov, [facility] [address] [id number] Oct, Tear of skin of plantar aspect of right foot, initial encounter S91.311A [facility] [id number], [place] [address] 2546 Oct, [facility] [id number], [place] [address] 25[address] Oct, [facility] [id number] [id number] Oct, [facility] [id number] [id number] Oct, [facility] [id number] [id number] Sep, [facility] [id number] [id number] Sep, [facility] [id number] [place] [id number] Sep, [facility] [id number] [id number] Sep, [facility] [address], [place] [address] 2546 Sep, [facility] [id number], [place] [address] 25[address] Sep, Other chronic pain G89.29 and Pain in left knee M25.562 [facility] [address], [place] [address] Sep, [facility] [address] [id number] Sep, Plantar fasciitis of left foot M72.2 and Pain in right knee M25.561 [facility] [address] [id number] [id number] Aug, [facility] [address] [facility] [id number], [place] [address] Aug, [facility] [address] [facility] [id number] [address] Aug, [facility] [id number], [place] [address] Aug, Chronic daily headache R51 [facility] [address] [facility] [id number], [place] [address] Aug, [facility] [address] [id number] Aug, Edema, unspecified type R60.9 ; Weight gain R63.5 and Sleep apnea, unspecified type G47.30 [facility] [address] [id number] Jul, Acute pain of left knee M25.562 and Plantar fasciitis of left foot M72.2 [facility] [address] [facility] [id number], [place] [address] Jul, [facility] [address] [id number] Jul, Plantar fasciitis of left foot M72.2 and Chronic daily headache R51 [facility] [address] [id number][place] [id number] Jul, [facility] [address] [id number][place] [id number] Jun, [facility] [address] [facility] [id number], [place] [address] 49[address] Jun, [facility] [address] [id number] [id number] Jun, [facility] [address] [id number] [id number] Jun, [facility] [address] [id number] [id number] May, [facility] [id number] [place] [id number] May, [facility] [id number] [place] [address] 07849- 0776 May, Stress incontinence of urine N39.3 [facility] [id number] [place] [address] [id number] May, [facility] [address] [id number] May, Encounter for examination for admission to correction Z02.2 ; Toxoplasmosis B58.9 ; Seizures R56.9 ; Major depressive disorder, recurrent, moderate F33.1 ; Degenerative brain disorder G31.9 and Unsteady gait R26.81 [facility] [id number] [place] [address] [id number]- 7471 May, [facility] [id number] [place] [address] 97367- 2194 May, Mood disorder F39 [facility] [id number] [place] [address] 94524- 1769 May, [facility] [id number] [place] [address] 91273- 4815 Apr, [facility] [address], [place] [address]- [address] Mar, [facility] [id number] [place] [address] 36690- 2074 Mar, [facility] [address] [id number], [place] [address]- 5089 Mar, [facility] [id number] [place] [address] 41247- 3620 Mar, [facility] [address], [place] [address]- 0449 Mar, [facility] [address] [id number] [place] [address]- 2273 Mar, Stress incontinence of urine N39.3 [facility] [address] [id number] [place] [id number] Mar, [facility] [place] [facility] [address] [id number] [place] [address]- 8215 Feb, [facility] [place] [facility] [address] [id number] [place] [address]- 6898 Feb, [facility] [place] [facility] [address] [id number] [place] [address]- 1420 Feb, [facility] [place] [facility] [address] [id number] [place] [address]- 4235 Feb, [facility] [place] [facility] [address] [id number] [place] [address]- 3950 Feb, [facility] [place] [facility] [address] [id number] [place] [address]- 9166 Feb, [facility] [place] [facility] [address] [id number] [place] [address]- 9923 Feb, [facility] [place] [facility] [address] [id number] [place] [address]- 5652 Jan, [facility] [place] [facility] [address] [id number] [place] [address]- 7054 Jan, [facility] [place] [facility] [address] [id number] [place] [address]- 4295 Jan, [facility] [place] [facility] [address] [id number] [place] [address]- 7213 Jan, [facility] [place] [facility] [address] [id number] [place] [address]- 6876 Jan, [facility] [place] [facility] [address] [id number] [place] [address]- 5286 Jan, [facility] [place] [facility] [address] [id number] [place] [address] 73[address] Jan, [facility] [address], [place] [address]- 4211 Jan, General weakness R53.1 and Dementia with behavioral disturbance, unspecified dementia type F03.91 [facility] [address], [place] [address]- 1773 December, [facility] [id number] [place] [address] 43918- 9558 December, Other chronic pain G89.29 [facility] [id number] [place] [address] 36340- 5540 December, [facility] [id number] [place] [address] 19166- 5025 December, Unsteady gait R26.81 ; Generalized weakness R53.1 ; Unspecified mental disorder due to known physiological condition F09 and Generalized headaches R51 [facility] [id number] [place] [address] 74462- 0342 December, [facility] [id number] [place] [address] 65483- 7932 Nov, Anxiety F41.9 [facility] [id number] [place] [address] 49261- 3727 Nov, Mood disorder F39 [facility] [id number] [place] [address] 76211- 3495 Oct, [facility] [id number] [place] [address] 40694- 1294 Oct, Anxiety F41.9 [facility] [id number] [place] [address] 39636- 0290 Oct, Other chronic pain G89.29 [facility] [address], [place] [address]- 1114 Sep, Other chronic pain G89.29 ; Pain in left knee M25.562 ; Pain in right knee M25.561 and Anxiety F41.9 [facility] [id number] [place] [address] 06947- 3569 28 Sep, 2016 MDD (major depressive disorder), recurrent episode, mild F33.0 ; Degenerative brain disorder G31.9 and 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 [facility] [id number] [place] [address] 12805- 5769 Sep, [facility] [address] [address]393- 1698 Sep, [facility] [id number] [place] [address] 51306- 7035 Sep, Mood disorder F39 ; Pain of left leg M79.605 and Pain in right leg M79.604 [facility] [id number] [place] [address] 76540- 1983 14 Sep, 2016 Seizures R56.9 [facility] [id number] [place] [address] 20332- 8822 Sep, [facility] [id number] [place] [address] 52846- 1326 Sep, [facility] [id number] [place] [address] 17148- 6276 Sep, [facility] [id number] [place] [address] 42153- 5658 Aug, Bronchitis J40 [facility] [id number] [place] [address] 43986- 9111 Aug, Bronchitis J40 and Encounter for drug screening Z02.83 [facility] [id number] [place] [address] 78326- 5770 Aug, [facility] [id number] [place] [address] 12298- 4694 Aug, Seizures R56.9 [facility] [address] 74976- 1390 Aug, Seizures R56.9 [facility] [id number] [place] [address] 72485- 7706 Aug, Major depressive disorder, recurrent, moderate F33.1 and Seizures R56.9 [facility] [id number] [place] [address] 04282- 2409 Aug, [facility] [id number] [place] [address] 70561- 0304 Aug, [facility] [id number] [place] [address] 61575- 8053 Aug, Major depressive disorder, recurrent, moderate F33.1 and Seizures R56.9 [facility] [id number] [place] [address] 46252- 1413 Jul, Major depressive disorder, recurrent, moderate F33.1 and Degenerative brain disorder G31.9 [facility] [id number] [place] [address] 29403- 3195 Jul, Seizures R56.9 [facility] [id number] [place] [address] 60440- 3812 Apr, [facility] [id number] [place] [address] 60546- 7146 Apr, Major depressive disorder, recurrent, moderate F33.1 ; Anxiety F41.9 and Degenerative brain disorder G31.9 [facility] [address] [place] [address] 79948- 0273 Apr, Mood disorder F39 [facility] [address] [place] [address] 57818- 3416 Apr, Arthritis M19.90 [facility] [address] [place] [address] 69282- 5579 Mar, Arthritis M19.90 ; Degenerative brain disorder G31.9 and Nonintractable generalized idiopathic epilepsy without status epilepticus G40.309 [facility] [id number] [address] 6438 Feb, IMMUNIZATIONS No Known Immunizations SOCIAL HISTORY Never Assessed REASON FOR VISIT reyes- Jose BUENO PLAN OF CARE Activity Details Follow Up 2 Months, prn Reason: VITAL SIGNS Height 65 in 2018-01-09 Weight 181.2 lbs 2018-01-09 Heart Rate 80 bpm 2018-01-09 Respiratory Rate 20 2018-01-09 BMI 30.15 kg/m2 2018-01-09 Blood pressure systolic 130 mmHg 2018-01-09 Blood pressure diastolic 73 mmHg 2018-01-09 MEDICATIONS Medication Instructions Dosage Frequency Start Date End Date Duration Status Ondansetron 4 MG Orally every 8 hrs PRN 1 tablet on the tongue and allow to dissolve Aug, Active Venlafaxine HCl ER 150 MG Orally Once a day 1 tablet with food Once a day Orally 30 day(s) 24h 14 days Active ProAir HFA 108 (90 Base) MCG/ACT Inhalation every 4 hrs 2 puffs as needed for cough or short of breath 4h 30 Active Effexor XR 37.5 MG Orally Once a day (titration) 3 caps daily for 2 weeks then 2 caps daily for 2 weeks then 1 cap daily for 2 weeks then discontinue December, 30 day(s) Active Advair Diskus 500-50 MCG/DOSE Inhalation Twice a day 1 puff 12h Not-Taking Naproxen 500 MG Orally every 12 hrs 1 tablet as needed 12h 30 Active Zyrtec Allergy 10 mg Orally Once a day 1 tablet as needed 24h May, 30 day(s) Active Memantine HCl 5 MG TAKE 1 TABLET BY MOUTH ONCE DAILY 30 Not- Taking Biofreeze 4 % Externally Once a day at bedtime 1 applicationt both ankles Active Keppra 500 MG Orally 2 times a day 3 capsules 12h Not-Taking Divalproex Sodium 500 MG TAKE 3 TABLETS BY MOUTH TWICE DAILY 30 Active Ditropan XL 5 mg Orally Once a day 1 tablet 24h Mar, 30 day(s) Active Levetiracetam 500 mg Orally 2 times a day 3 tablets 12h Active Potassium Chloride ER 20 meq Orally Once a day 1 tablet with food 24h Sep, Jan, 30 day(s) Active Oxybutynin Chloride ER 5 MG TAKE 1 TABLET BY MOUTH DAILY 30 Not- Taking Colace 100 mg Orally twice a day 1 capsule 12h Active Clonazepam 1 MG Orally Twice a day 1/2 tab in the AM and 1 tab in the PM 12h Sep, Active Omeprazole 20 mg Orally Once a day 1 capsules 24h Active Neurontin 300 MG Orally 3 times a day 1 capsule 8h Aug, Active Furosemide 40 mg Orally Once a day in AM 1 tablet 08 Sep, 2017 30 day (s) Not-Taking Amitriptyline HCl 25 MG Orally Once a day at bedtime 1 tablet Active Bodega 10-325 MG Orally 3 times a day 1 tablet 8h Nov, 28 days Active Clonidine HCl 0.1 MG Orally Twice [...] Surgical History 27 brain surgeries including shunt, [place] Surgical History neck fusion 09/26, 09/28 Surgical History right hand surgery Hospitalization History surgeries Hospitalization History seizures 12/2015
--- OUTSIDE RECORDS SUMMARY | 2018-07-01 14:27 | XMS REPORT ---
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 Name Role Phone ESTEPHANIA IVAN Unavailable PROBLEMS Type Condition ICD9-CM Code ELR15-DN Code Onset Dates Condition Status SNOMED Code Problem Unspecified mental disorder due to known physiological condition F09 Active 088758553 Problem Major depressive disorder, recurrent, moderate F33.1 Active 05478313 Problem Dementia with behavioral disturbance, unspecified dementia type F03.91 Active 0562306830481 Problem Mood disorder F39 Active 93066704 Problem Other chronic pain G89.29 Active 55439899 Problem Anxiety F41.9 Active 20848317 Problem Unsteady gait R26.81 Active 20577249 Problem History of brain shunt Z98.2 Active 013038805 Problem PTSD (post-traumatic stress disorder) F43.10 Active 35101768 Problem Sleep apnea, unspecified type G47.30 Active 69873116 Problem Degenerative brain disorder G31.9 Active 68289844 Problem Depressive disorder, not elsewhere classified F32.9 Active 76496803 Problem Other chronic pain G89.29 Active 27495028 ALLERGIES No Information ENCOUNTERS Encounter Location Date Diagnosis [place] [id number] [place] [address] 44407- 0638 Apr, [facility] [id number] [place] [address] 06376- 6295 Mar, [place] [address] [place] [id number] [place] [address] 55880- 0039 Feb, PTSD (post-traumatic stress disorder) F43.10 [facility] [address] [address] 5[address] Feb, PTSD (post-traumatic stress disorder) F43.10 [place] [address] [address] 7934 Feb, Other chronic pain G89.29 and Pain in right knee M25.561 [facility] [address] [id number] [place] [address] 33453- 1226 Feb, PTSD (post-traumatic stress disorder) F43.10 [place] [id number] [place] [address] 55059- 3124 Feb, [facility] [address] [id number] Jan, Dementia with behavioral disturbance, unspecified dementia type F03.91 ; Other chronic pain G89.29 and Plantar fasciitis M72.[address] [facility] [address] [id number] Jan, Daily headache R51 ; History of brain shunt Z98.2 ; Plantar fasciitis of left foot M72.2 ; Pain in right knee M25.561 and Pain in left knee M25.562 [place] [address] [address] Jan, [place] [address] [place] [address] [id number] [place] [address] 44121- 2642 Jan, Pain in right knee M25.561 [place] [address], [place] [address] 7[address] Jan, [facility] [address], [place] [address] 2546 Jan, [facility] [address], [place] [address] 2545 Jan, [facility] [address] [id number] [place] [address] 57081 2540 December, Other chronic pain G89.[address] [facility] [address] [id number] December, Pain in left knee M25.562 ; Pain in right leg M79.604 ; Other chronic pain G89.29 ; Localized edema R60.0 and PTSD (post-traumatic stress disorder) F43.10 [facility] [id number] [place] [address] 68524- 3496 December, [facility] [id number] [place] [address] 35477- 3056 December, PTSD (post-traumatic stress disorder) F43.10 [facility] [id number] [place] [address] 30799- 7926 December, [facility] [id number] [place] [address] 81716- 2446 December, [facility] [id number] [place] [address] 70170- 0285 December, Depressive disorder, not elsewhere classified F32.9 and Cognitive change R41.89 [facility] [address] [id number] [place] [address] 79147- 0806 Nov, Major depressive disorder, recurrent, moderate F33.1 [facility] [address] [id number] [place] [address] 28927- 5342 Nov, [facility] [id number] [place] [address] 72291- 5195 Nov, [facility] [id number] [place] [address] 69079- 3782 Nov, [facility] [id number] [place] [address] 84967- 6746 Nov, [facility] [address] [id number] [place] [address] 95917- 1521 Nov, Mood disorder F39 [facility] [id number] [place] [address] 43840- 3686 Nov, Depressive disorder, not elsewhere classified F32.9 and Cognitive change R41.89 [facility] [id number] [place] [address] 02283- 4065 Nov, [place] [address] [place] [id number] [address]- 8486 Nov, [facility] [place] [address] [place] [id number] Oct, Tear of skin of plantar aspect of right foot, initial encounter S91.311A [facility] [address] [place] [address] [id number] [address] 254 Oct, [facility] [address], [place] [address] 2546 Oct, [facility] [address] [id number] [place] [address] [id number] Oct, [facility] [address] [id number] [place] [address] [id number] Oct, [facility] [address] [id number] [place] [address] [id number] Sep, [facility] [address] [id number] [place] [address] [id number] Sep, [facility] [address] [id number] [place] [address] [id number] Sep, [facility] [address] [id number] [place] [address] [id number] Sep, [facility] [address], [place] [address] 2546 Sep, [facility] [address], [place] [address]- 2546 Sep, Other chronic pain G89.29 and Pain in left knee M25.562 [facility] [address] [place] [address] 20575- 2326 Sep, [facility] [place] [address] [place] [id number] Sep, Plantar fasciitis of left foot M72.2 and Pain in right knee M25.561 [facility] [address] [id number] [place] [address] [id number] Aug, [facility] [address] [facility] [id number] [address]- 5552 Aug, [facility] [address] [facility] [id number], [place] [address]- 9816 Aug, [facility] [address] [facility] [id number], [place] [address]- 7478 Aug, Chronic daily headache R51 [facility] [address] [facility] [id number] [address]- 5996 Aug, [facility] [place] [address] [place] [id number] Aug, Edema, unspecified type R60.9 ; Weight gain R63.5 and Sleep apnea, unspecified type G47.30 [facility] [place] [address] [place] [id number] Jul, Acute pain of left knee M25.562 and Plantar fasciitis of left foot M72.2 [facility] [address] [facility] [id number], [place] [address]- 9196 Jul, [facility] [address] [place] [id number] Jul, Plantar fasciitis of left foot M72.2 and Chronic daily headache R51 [facility] [address] [place] [address] [id number] [id number] Jul, [facility] [address] [id number] [id number] Jun, [facility] [address] [facility] [id number], [place] [address]- 4066 Jun, [facility] [address] [id number] [id number] Jun, [facility] [address] [id number][place] [id number] Jun, [facility] [address] [id number] [id number] May, [facility] [address] [id number] [id number] May, [facility] [address] [place] [address] [id number] [place] [address] [id number]- [id number] May, Stress incontinence of urine N39.3 [facility] [address] [id number] [id number] May, [facility] [address] [place] [id number] May, Encounter for examination for admission to senior care Z02.2 ; Toxoplasmosis B58.9 ; Seizures R56.9 ; Major depressive disorder, recurrent, moderate F33.1 ; Degenerative brain disorder G31.9 and Unsteady gait R26.81 [facility] [address], [place] [address]- 9229 May, [facility] [address] [place] [address] [id number] [place] [address] 01385- 5438 May, Mood disorder F39 [facility] [address] [id number] [place] [address] 90970- 8454 May, [facility] [address] [id number] [place] [address] 01928- 6035 Apr, [facility] [address], [place] [address]- 6692 Mar, [facility] [address] [id number], [place] [address]- 6863 Mar, [facility] [address], [place] [address]- 6731 Mar, [facility] [address] [id number] [place] [address] 02629- 2426 Mar, [facility] [address], [place] [address]- 2034 Mar, [facility] [id number] [place] [address] 92112- 9570 Mar, Stress incontinence of urine N39.3 [facility] [address] [id number] [place] [id number] Mar, [facility] [place] [facility] [address] [id number] [place] [address]18 Feb, [facility] [place] [facility] [address] [id number] [place] [address] Feb, [facility] [place] [facility] [address] [id number] [place] [address]- 4087 Feb, [facility] [place] [facility] [address] [id number] [place] [address]- 3007 Feb, [facility] [place] [facility] [address] [id number] [place] [address]- 4018 Feb, [facility] [place] [facility] [address] [id number] [place] [address]257 Feb, [facility] [place] [facility] [address] [id number] [place] [address]- 2966 Feb, [facility] [place] [facility] [address] [id number] [place] [address]- 2484 Jan, [facility] [place] [facility] [address] [id number] [place] [address]- 9250 Jan, [facility] [place] [facility] [address] [id number] [place] [address]- 2018 Jan, [facility] [place] [facility] [address] [id number] [place] [address]- 7090 Jan, [facility] [place] [facility] [address] [id number] [place] [address]- 8144 Jan, [facility] [place] [facility] [address] [id number] [place] 6436 Jan, [facility] [place] [facility] [address] [id number] [place] 7233 Jan, [facility] [place] [facility] [address], [place] [address]- 0180 Jan, General weakness R53.1 and Dementia with behavioral disturbance, unspecified dementia type F03.91 [facility] [address] [place] [id number] [place] [address] 48881- 4967 December, [facility] [address] [id number] [place] [address] 30342- 3567 December, Other chronic pain G89.29 [facility] [address] [place] [id number] [place] [address] 70624- 6302 December, [facility] [address] [id number] [place] [address] 95060- 8831 December, Unsteady gait R26.81 ; Generalized weakness R53.1 ; Unspecified mental disorder due to known physiological condition F09 and Generalized headaches R51 [facility] [address] [place] [id number] [place] [address] 48793- 0678 December, [facility] [address] [id number] [place] [address] 47368- 0629 Nov, Anxiety F41.9 [facility] [address] [place] [address] [id number] [place] [address] 53722- 3440 Nov, Mood disorder F39 [facility] [id number] [place] [address] 88480- 8259 Oct, [facility] [address] [id number] [place] [address] 33920- 8872 Oct, Anxiety F41.9 [facility] [id number] [place] [address] 35303- 4620 Oct, Other chronic pain G89.29 [facility] [address] [id number] [place] [address] 56105- 3735 Sep, Other chronic pain G89.29 ; Pain in left knee M25.562 ; Pain in right knee M25.561 and Anxiety F41.9 [facility] [address] [id number] [place] [address] 83967- 4837 Sep, MDD (major depressive disorder), recurrent episode, mild F33.0 ; Degenerative brain disorder G31.9 and 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 [facility] [id number] [place] [address] 38030- 2103 Sep, [facility] [address] 21174- 2456 Sep, [facility] [id number] [place] [address] 55407- 2044 Sep, Mood disorder F39 ; Pain of left leg M79.605 and Pain in right leg M79.604 [facility] [id number] [place] [address] 60750- 3376 14 Sep, 2016 Seizures R56.9 [facility] [address] 07530- 8392 Sep, [facility] [id number] [place] [address] 08986- 9800 Sep, [facility] [id number] [place] [address] 03610- 9484 Sep, [facility] [id number] [place] [address] 77406- 5977 Aug, Bronchitis J40 [facility] [id number] [place] [address] 64601- 3588 Aug, Bronchitis J40 and Encounter for drug screening Z02.83 [facility] [address] 73743- 3686 Aug, [facility] [address] [place] [id number] [place] [address] 40217- 9950 Aug, Seizures R56.9 [facility] [address] 62249- 2545 Aug, Seizures R56.9 [facility] [id number] [place] [address] 46992- 1435 Aug, Major depressive disorder, recurrent, moderate F33.1 and Seizures R56.9 [facility] [id number] [place] [address] 85046- 7750 Aug, [facility] [address] [place] [id number] [place] [address] 80085- 0761 Aug, [facility] [address] [id number] [place] [address] 30378- 2751 Aug, Major depressive disorder, recurrent, moderate F33.1 and Seizures R56.9 [place] [address] [id number] [place] [address] 92536- 3002 Jul, Major depressive disorder, recurrent, moderate F33.1 and Degenerative brain disorder G31.9 [place] [address] [id number] [place] [address] 89826- 9694 Jul, Seizures R56.9 [facility] [address] [id number] [place] [address] 54358- 1034 Apr, [place] [address] [id number] [place] [address] 89127- 0695 Apr, Major depressive disorder, recurrent, moderate F33.1 ; Anxiety F41.9 and Degenerative brain disorder G31.9 [place] [id number] [place] [address] 36320- 1933 Apr, Mood disorder F39 [place] [id number] [place] [address] 48627- 8988 Apr, Arthritis M19.90 [facility] [address] [id number] [place] [address] 16548- 7502 Mar, Arthritis M19.90 ; Degenerative brain disorder G31.9 and Nonintractable generalized idiopathic epilepsy without status epilepticus G40.309 [place] [address] [id number] [place] [address] 09186- 7805 Feb, IMMUNIZATIONS No Known Immunizations SOCIAL HISTORY Never Assessed REASON FOR VISIT Requests return call PLAN OF CARE VITAL SIGNS MEDICATIONS Medication [...] Surgical History 27 brain surgeries including shunt, [place] Surgical History neck fusion 09/26, 09/28 Surgical History right hand surgery Hospitalization History surgeries Hospitalization History seizures 12/2015
--- OUTSIDE RECORDS SUMMARY | 2018-07-01 14:28 | XMS REPORT ---
Author Author JENIFER BRAY Organization [facility] Address [address] [place] [address] Care Team Providers Care Claim Auditor Name Role Phone JENIFER BRAY Unavailable PROBLEMS Type Condition ICD9-CM Code GNR13-AA Code Onset Dates Condition Status SNOMED Code Problem Other chronic pain G89.29 Active 08764500 Problem Unspecified mental disorder due to known physiological condition F09 Active 146698687 Problem Anxiety F41.9 Active 45457871 Problem Mood disorder F39 Active 37385571 Problem Other chronic pain G89.29 Active 18741244 Problem Sleep apnea, unspecified type G47.30 Active 91582650 Problem Dementia with behavioral disturbance, unspecified dementia type F03.91 Active 6865048424245 Problem Unsteady gait R26.81 Active 93061621 Problem Degenerative brain disorder G31.9 Active 29667693 Problem Major depressive disorder, recurrent, moderate F33.1 Active 71791046 ALLERGIES No Information ENCOUNTERS Encounter Location Date Diagnosis [facility] [id number] [place] [address] Nov, [facility] [address] [place] [id number] Oct, Tear of skin of plantar aspect of right foot, initial encounter S91.311A [facility] [id number] [address] Oct, [facility] [id number] [address] 14 Oct, 2017 [facility] [id number] [place] [id number] 12 Oct, 2017 [facility] [address] [id number] [id number] 06 Oct, 2017 [facility] [id number] [place] [id number] Sep, [facility] [id number] [place] [id number] Sep, [facility] [id number] [place] [id number] Sep, [facility] [id number] [id number] Sep, [facility] [address] [place] [phone]- [address] Sep, [facility] [id number] [place] [address] [phone]- 7300 Sep, Other chronic pain G89.29 and Pain in left knee M25.562 [facility] [address] [place] [address] [id number] Sep, [facility] [address] [place] [phone] Sep, Plantar fasciitis of left foot M72.2 and Pain in right knee M25.561 [facility] [id number] [place] [id number] Aug, [facility] [id number] [place] [address] [id number] Aug, [facility] [id number] [id number] Aug, [facility] [address] [address] Aug, Chronic daily headache R51 [facility] [address] [address] Aug, [facility] [address] [place] [id number] Aug, Edema, unspecified type R60.9 ; Weight gain R63.5 and Sleep apnea, unspecified type G47.30 [facility] [address] [place] [id number] Jul, Acute pain of left knee M25.562 and Plantar fasciitis of left foot M72.2 [facility] [id number] [address] Jul, [facility] [address] [place] [id number] Jul, Plantar fasciitis of left foot M72.2 and Chronic daily headache R51 [facility] [id number] [id number] Jul, [facility] [id number] [id number] Jun, [facility] [address] [address] 2546 Jun, [facility] [address] [id number] [id number] Jun, [facility] [id number] [place] [address] [id number] Jun, [facility] [id number] [place] [address] [id number] May, [facility] [id number] [place] [id number] May, [facility] [id number] [address] May, Stress incontinence of urine N39.3 [facility] [id number] [place] [id number] May, [facility] [id number] May, Encounter for examination for admission to shelter Z02.2 ; Toxoplasmosis B58.9 ; Seizures R56.9 ; Major depressive disorder, recurrent, moderate F33.1 ; Degenerative brain disorder G31.9 and Unsteady gait R26.81 [facility] [address] [address] May, [facility] [place] [facility] [address] [id number] [place] [address] May, Mood disorder F39 [facility] [place] [facility] [address] [id number] [place] [address] May, [facility] [place] [facility] [address] [id number] [place] [address] Apr, [facility] [place] [facility] [id number] [place] [address], [place] [address] Mar, [facility] [place] [facility] [address] [id number] [place] [address], [place] [address] Mar, [facility] [place] [facility] [address] [id number] [place] [address], [place] [address] Mar, [facility] [place] [facility] [address] [id number] [place] [address], [place] [address]- [address] Mar, [facility] [place] [facility] [address] [id number] [place] [address], [place] [address]- [address] Mar, [facility] [place] [facility] [address] [id number] [place] [address], [place] [address]- 2560 Mar, Stress incontinence of urine N39.3 [facility] [address] [id number] [id number] Mar, [facility] [place] [facility] [address] [id number] [place] [address] Feb, [facility] [place] [facility] [address] [id number] [place] [address] Feb, [facility] [place] [facility] [address] [id number] [address] Feb, [facility] [place] [facility] [address] [facility] [id number] [address] Feb, [facility] [place] [facility] [id number] [place] [address]- [address] Feb, [facility] [place] [facility] [address] [address] Feb, [facility] [address] [address] Feb, [facility] [id number] [address] Jan, [facility] [address] [address] Jan, [facility] [id number] [address] Jan, [facility] [address] [address]- [address] Jan, [facility] [id number] [address]- 0[address] Jan, [facility] [address] [address]- [address] Jan, [facility] [address] [address] Jan, [facility] [address] [address] Jan, General weakness R53.1 and Dementia with behavioral disturbance, unspecified dementia type F03.91 [facility] [address] [address] December, [facility] [address] [address] December, Other chronic pain G89.29 [facility] [address] [address] 70[address] December, [facility] [address] [address] December, Unsteady gait R26.81 ; Generalized weakness R53.1 ; Unspecified mental disorder due to known physiological condition F09 and Generalized headaches R51 [facility] [id number] [place] [address] 10124- 1491 December, [facility] [id number] [place] [address] 95421- 2341 Nov, Anxiety F41.9 [facility] [id number] [place] [address] 35521- 6439 Nov, Mood disorder F39 [address] [address] Oct, [id number] [place] [address] 83589- 2955 Oct, Anxiety F41.9 [id number] [place] [address] 09660- 2936 Oct, Other chronic pain G89.29 [address] [address]- [address] Sep, Other chronic pain G89.29 ; Pain in left knee M25.562 ; Pain in right knee M25.561 and Anxiety F41.9 [address] [place] [id number] [place] [address] 06171- 1432 Sep, MDD (major depressive disorder), recurrent episode, mild F33.0 ; Degenerative brain disorder G31.9 and 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 [id number] [place] [address] 72955- 6075 Sep, [address] [id number] [place] [address]78- 9853 Sep, [address] [place] [id number] [place] [address] 77195- 4032 Sep, Mood disorder F39 ; Pain of left leg M79.605 and Pain in right leg M79.604 [address] [id number] [place] [address] 51207- 8582 Sep, Seizures R56.9 [facility] [id number] [place] [address] 41792 2546 08 Sep, 2016 [facility] [id number] [place] [address] 07408- 3916 Sep, [facility] [id number] [place] [address] 88040- 2116 Sep, [facility] [id number] [place] [address] 40530 2546 Aug, Bronchitis J40 [facility] [id number] [place] [address] 90335- 0826 Aug, Bronchitis J40 and Encounter for drug screening Z02.83 [facility] [id number] [place] [address] 31866- 3466 Aug, [facility] [id number] [place] [address] 42547- 1676 Aug, Seizures R56.9 [facility] [id number] [place] [address] 11188 2546 Aug, Seizures R56.9 [facility] [id number] [place] [address] 38550 2546 Aug, Major depressive disorder, recurrent, moderate F33.1 and Seizures R56.9 [facility] [address] [place] [address] 39064 2546 Aug, [facility] [id number] [place] [address] 52683 2546 Aug, [facility] [id number] [place] [address] 76371 2546 Aug, Major depressive disorder, recurrent, moderate F33.1 and Seizures R56.9 [facility] [address] [place] [address] 19027 2546 Jul, Major depressive disorder, recurrent, moderate F33.1 and Degenerative brain disorder G31.9 [place] [place] [id number] [address]- 300[address] Jul, Seizures R56.9 [address] [address]- 1241 Apr, [address] [address]- 2019 Apr, Major depressive disorder, recurrent, moderate F33.1 ; Anxiety F41.9 and Degenerative brain disorder G31.9 [address] [address]- 5199 Apr, Mood disorder F39 [id number] [place] [address] 80596- 2455 Apr, Arthritis M19.90 [id number] [place] [address] 98295- 4393 Mar, Arthritis M19.90 ; Degenerative brain disorder G31.9 and Nonintractable generalized idiopathic epilepsy without status epilepticus G40.309 [address] [address]- 4119 Feb, IMMUNIZATIONS No Known Immunizations SOCIAL HISTORY Never Assessed REASON FOR VISIT MI Placement PLAN OF CARE VITAL SIGNS MEDICATIONS Unknown Medications RESULTS No Results PROCEDURES No Known procedures INSTRUCTIONS MEDICATIONS ADMINISTERED No Known Medications MEDICAL (GENERAL) HISTORY Type Description Date Medical History Toxoplasmosis Medical History migraine Medical History dementia Medical History depression Medical History alzheimers disease Medical History epilepsy Medical History COPD Surgical History cholecystectomy Surgical History appendectomy Surgical History 27 brain surgeries including shunt, [place] Surgical History neck fusion 09/26, 09/28 Surgical History right hand surgery Hospitalization History surgeries Hospitalization History seizures 12/2015
--- OUTSIDE RECORDS SUMMARY | 2018-07-01 14:28 | XMS REPORT ---
Author Author JENIFER BRAY Organization [facility] Address [address] [place] [address] Care Team Providers [employer] Name Role Phone JENIFER BRAY Unavailable PROBLEMS Type Condition ICD9-CM Code [id number] Code Onset Dates Condition Status SNOMED Code Problem Other chronic pain G89.29 Active 75446384 Problem Unspecified mental disorder due to known physiological condition F09 Active 571772483 Problem Anxiety F41.9 Active 07125024 Problem Mood disorder F39 Active 57468402 Problem Other chronic pain G89.29 Active 09811825 Problem Sleep apnea, unspecified type G47.30 Active 02870352 Problem Dementia with behavioral disturbance, unspecified dementia type F03.91 Active 2276692930071 Problem Unsteady gait R26.81 Active 64821696 Problem Degenerative brain disorder G31.9 Active 72710863 Problem Major depressive disorder, recurrent, moderate F33.1 Active 06130174 ALLERGIES No Information ENCOUNTERS Encounter Location Date Diagnosis [facility] [address] [facility] [id number] [address] Oct, [facility] [address] [id number] [id number] Oct, [facility] [place] [facility] [address] [id number] [id number] Oct, [facility] [address] [id number] [id number] Sep, [facility] [address] [id number] [id number] Sep, [facility] [address] [id number][place] [id number] Sep, [facility] [address] [id number] [id number] Sep, [facility] [address]00565[address], [place] [address] Sep, [facility] [id number] [place] [address] 825194- 5694 Sep, Other chronic pain G89.29 and Pain in left knee M25.562 [facility] [address] [place] [address]707- 1574 Sep, [facility] [address] [place] [id number] Sep, Plantar fasciitis of left foot M72.2 and Pain in right knee M25.561 [facility] [id number] [place] [id number] Aug, [facility] [address] [place] [address] 86234- 0346 Aug, [facility] [address] [place] [address] 18954- 3497 Aug, [facility] [address] [place] [address] 00887- 9508 Aug, Chronic daily headache R51 [facility] [address] [place] [address] 36951- 9631 Aug, [facility] [address] [place] [id number] Aug, Edema, unspecified type R60.9 ; Weight gain R63.5 and Sleep apnea, unspecified type G47.30 [facility] [address] [place] [id number] Jul, Acute pain of left knee M25.562 and Plantar fasciitis of left foot M72.2 [facility] [address] [place] [address] 91744- 7436 Jul, [facility] [address] [place] [id number] Jul, Plantar fasciitis of left foot M72.2 and Chronic daily headache R51 [facility] [place] [facility] [address] [id number] [id number] Jul, [facility] [id number] [id number] Jun, [facility] [address]65100[place], [place] [address] Jun, [facility] [place] [facility] [id number][place] [id number] Jun, [facility] [place] [facility] [id number] [id number] Jun, [facility] [place] [facility] [id number] [place] [id number] May, [facility] [id number] [id number] May, [facility] [address]65100[place], [place] [address] May, Stress incontinence of urine N39.3 [facility] [id number], [place] [id number] May, [facility] [address] [place] [id number] May, Encounter for examination for admission to snf Z02.2 ; Toxoplasmosis B58.9 ; Seizures R56.9 ; Major depressive disorder, recurrent, moderate F33.1 ; Degenerative brain disorder G31.9 and Unsteady gait R26.81 [facility] [address] [id number] [address] May, [facility] [address] [id number] [id number] May, Mood disorder F39 [facility] [address] [id number] [address] [address] May, [facility] [address] [id number] [address] Apr, [facility] [place] [facility] [address] [id number] [place] [address] Mar, [facility] [place] [facility] [address] [id number] [place] [address] 7148 Mar, [facility] [place] [facility] [address] [id number] [place] [address] 3118 Mar, [facility] [place] [facility] [address] [id number] [place] [address] 1399 Mar, [facility] [place] [facility] [address] [id number] [place] [address] 3147 Mar, [facility] [place] [facility] [address] [id number] [place] [address] 9066 Mar, Stress incontinence of urine N39.3 [facility] [address] [id number] [place] [id number] Mar, [facility] [place] [facility] [address] [id number] [place] [address] 8179 Feb, [facility] [place] [facility] [address] [id number] [place] [address]- 0734 Feb, [facility] [place] [facility] [address] [id number] [place] [address]- 2512 Feb, [facility] [place] [facility] [address] [id number] [place] [address]- 0603 Feb, [facility] [place] [facility] [address] [id number] [place] [address]- 5895 Feb, [facility] [place] [facility] [address] [id number] [place] [address]- 8690 Feb, [facility] [place] [facility] [address] [id number] [place] [address]- 5858 Feb, [facility] [place] [facility] [address] [id number] [place] [address] Jan, [facility] [place] [facility] [address] [id number], [place] [address] Jan, [facility] [address]00565100[place], [place] [address] Jan, [facility] [address] [place] [address] 50426- 5322 Jan, [facility] [address]00565100[place], [place] [address] Jan, [facility] [id number] [place] [address] 63011- 1760 Jan, [facility] [address] [place] [address] 87480- 5421 Jan, [facility] [id number] [place] [address] 94993- 5643 Jan, General weakness R53.1 and Dementia with behavioral disturbance, unspecified dementia type F03.91 [facility] [address] [place] [address] 34083- 7554 December, [facility] [address], [place] [address] December, Other chronic pain G89.29 [facility] [id number] [place] [address] 46246- 8532 December, [facility] [address]65[address], [place] [address] December, Unsteady gait R26.81 ; Generalized weakness R53.1 ; Unspecified mental disorder due to known physiological condition F09 and Generalized headaches R51 [facility] [address]65100[place], [place] [address] December, [facility] [id number] [place] [address] 93996- 9833 Nov, Anxiety F41.9 [facility] [address]65100[place], [place] [address] 7716 Nov, Mood disorder F39 [place] [address]65100[place], [place] [address] Oct, [facility] [id number] [place] [address] 65905- 6756 Oct, Anxiety F41.9 [facility] [address] [place] [address] 88827 2547 Oct, Other chronic pain G89.29 [facility] [id number] [place] [address] 37168- 5399 Sep, Other chronic pain G89.29 ; Pain in left knee M25.562 ; Pain in right knee M25.561 and Anxiety F41.9 [facility] [id number] [place] [address] 39996- 5958 Sep, MDD (major depressive disorder), recurrent episode, mild F33.0 ; Degenerative brain disorder G31.9 and Other penitentiary (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 Z79.899 [facility] [address] [place] [address] 60988- 0456 Sep, [facility] [id number] [place] [address] 86192- 4958 Sep, [facility] [address] [place] [address] 48928- 6568 Sep, Mood disorder F39 ; Pain of left leg M79.605 and Pain in right leg M79.604 [facility] [address] [place] [address] 96405- 6832 14 Sep, 2016 Seizures R56.9 [facility] [id number] [place] [address] 22358- 5726 Sep, [facility] [id number] [place] [address] 08716- 2567 Sep, [facility] [address] [place] [address] 42772- 5213 Sep, [facility] [address] [place] [address] 84674- 5998 Aug, Bronchitis J40 [facility] [address] [address]19- 1726 Aug, Bronchitis J40 and Encounter for drug screening Z02.83 [facility] [id number] [place] [address] 84475- 5036 Aug, [facility] [id number] [place] [address] 50935- 0848 Aug, Seizures R56.9 [facility] [id number] [place] [address] 80324- 5384 Aug, Seizures R56.9 [facility] [id number] [place] [address] 77714- 4687 Aug, Major depressive disorder, recurrent, moderate F33.1 and Seizures R56.9 [facility] [id number] [place] [address] 31536- 4084 Aug, [facility] [id number] [place] [address] 38784- 7267 Aug, [facility] [id number] [place] [address] 51789- 3173 Aug, Major depressive disorder, recurrent, moderate F33.1 and Seizures R56.9 [facility] [id number] [place] [address] 26013- 2683 Jul, Major depressive disorder, recurrent, moderate F33.1 and Degenerative brain disorder G31.9 [facility] [id number] [place] [address] 87318- 6806 Jul, Seizures R56.9 [facility] [id number] [place] [address] 46199- 0486 Apr, [facility] [id number] [place] [address] 60607- 7277 Apr, Major depressive disorder, recurrent, moderate F33.1 ; Anxiety F41.9 and Degenerative brain disorder G31.9 [place] [id number], [place] [address]- 2812 Apr, Mood disorder F39 [place] [address], [place] [address]- 4358 Apr, Arthritis M19.90 [place] [address] [place] [address] 46515- 8599 Mar, Arthritis M19.90 ; Degenerative brain disorder G31.9 and Nonintractable generalized idiopathic epilepsy without status epilepticus G40.309 [place] [address], [place] [address]- 6532 Feb, IMMUNIZATIONS No Known Immunizations SOCIAL HISTORY Never Assessed REASON FOR VISIT home crisis PLAN OF CARE VITAL SIGNS MEDICATIONS Unknown Medications RESULTS No Results PROCEDURES No Known procedures INSTRUCTIONS MEDICATIONS ADMINISTERED No Known Medications MEDICAL (GENERAL) HISTORY Type Description Date Medical History Toxoplasmosis Medical History migraine Medical History dementia Medical History depression Medical History alzheimers disease Medical History epilepsy Medical History COPD Surgical History cholecystectomy Surgical History appendectomy Surgical History 27 brain surgeries including shunt, [place] Surgical History neck fusion 09/26, 09/28 Surgical History right hand surgery Hospitalization History surgeries Hospitalization History seizures 12/2015
--- OUTSIDE RECORDS SUMMARY | 2018-07-01 14:28 | XMS REPORT ---
Author Author ESTEPHANIA IVAN Organization [facility] Address [address] [place] [address] Care Team Providers Care Mold Injector Name Role Phone ESTEPHANIA IVAN Unavailable PROBLEMS Type Condition ICD9-CM Code YXW22-XX Code Onset Dates Condition Status SNOMED Code Problem Unsteady gait R26.81 Active 04150508 Problem Dementia with behavioral disturbance, unspecified dementia type F03.91 Active 0284492734717 Problem Unspecified mental disorder due to known physiological condition F09 Active 340795821 Problem Mood disorder F39 Active 03924296 Problem Other chronic pain G89.29 Active 86226724 Problem Anxiety F41.9 Active 00893111 Problem PTSD (post-traumatic stress disorder) F43.10 Active 92663066 Problem Depressive disorder, not elsewhere classified F32.9 Active 74647475 Problem Degenerative brain disorder G31.9 Active 10896221 Problem Major depressive disorder, recurrent, moderate F33.1 Active 29371826 Problem Other chronic pain G89.29 Active 78029836 Problem Sleep apnea, unspecified type G47.30 Active 46527582 ALLERGIES No Information ENCOUNTERS Encounter Location Date Diagnosis [place] [id number] [address] Feb, [place] [id number] [place] [address] 46637- 0610 December, Other chronic pain G89.29 [facility] [address] [place] [id number] December, Pain in left knee M25.562 ; Pain in right leg M79.604 ; Other chronic pain G89.29 ; Localized edema R60.0 and PTSD (post-traumatic stress disorder) F43.10 [place] [id number] [place] [address] 14572- 3344 December, [facility] [address], [place] [address] December, PTSD (post-traumatic stress disorder) F43.10 [facility] [id number] [place] [address] 43065- 2436 December, [facility] [id number] [place] [address] 13223- 8390 December, [facility] [id number] [place] [address] 62227- 1972 December, Depressive disorder, not elsewhere classified F32.9 and Cognitive change R41.89 [facility] [id number] [place] [address] 80361- 4878 Nov, Major depressive disorder, recurrent, moderate F33.1 [facility] [id number] [place] [address] 23493- 0409 Nov, [facility] [id number] [place] [address] 75304- 3751 Nov, [facility] [id number] [place] [address] 59100- 7200 Nov, [facility] [id number] [place] [address] 96987- 9026 Nov, [facility] [id number] [place] [address] 13812- 8970 Nov, Mood disorder F39 [facility] [address] [place] [address] 12523- 0062 Nov, Depressive disorder, not elsewhere classified F32.9 and Cognitive change R41.89 [facility] [id number] [place] [address] 12624- 6037 Nov, [facility] [address] [place] [address] 40601- 3280 Nov, [facility] [address] [id number] Oct, Tear of skin of plantar aspect of right foot, initial encounter S91.311A [facility] [address], [place] [address] 6[address] Oct, [facility] [address], [place] [address] 2546 Oct, [facility] [id number] [place] [address] [id number] Oct, [facility] [id number] [place] [address] [id number] Oct, [facility] [id number] [place] [address] [id number] Sep, [facility] [id number] [place] [address] [id number] Sep, [facility] [id number] [place] [address] [id number] Sep, [facility] [id number] [place] [address] [id number] Sep, [facility] [address] [place] [address] 970573- 3419 Sep, [facility] [address] [address] Sep, Other chronic pain G89.29 and Pain in left knee M25.562 [facility] [address], [place] [address] 3936 Sep, [facility] [address] [id number] Sep, Plantar fasciitis of left foot M72.2 and Pain in right knee M25.561 [facility] [id number] [id number] Aug, [facility] [address], [place] [address]- 5966 Aug, [facility] [address] [facility] [id number] [address] Aug, [facility] [address] [facility] [id number] 1641 Aug, Chronic daily headache R51 [facility] [address] [facility] [id number] Aug, [facility] [address] [id number] Aug, Edema, unspecified type R60.9 ; Weight gain R63.5 and Sleep apnea, unspecified type G47.30 [facility] [address] [id number] Jul, Acute pain of left knee M25.562 and Plantar fasciitis of left foot M72.2 [facility] [id number], [place] [address] 6240 Jul, [facility] [address] [id number] Jul, Plantar fasciitis of left foot M72.2 and Chronic daily headache R51 [facility] [address] [id number] [id number] Jul, [facility] [address] [id number] [id number] Jun, [facility] [address] [facility] [id number][place] [phone]26 Jun, [facility] [address] [id number][place] [id number] Jun, [facility] [address] [id number][place] [id number] Jun, [facility] [address] [id number][place] [id number] May, [facility] [address] [id number][place] [id number] May, [facility] [id number], [place] [address] 9649 May, Stress incontinence of urine N39.3 [facility] [id number] [id number] May, [facility] [address] [place] [id number] May, Encounter for examination for admission to fdc Z02.2 ; Toxoplasmosis B58.9 ; Seizures R56.9 ; Major depressive disorder, recurrent, moderate F33.1 ; Degenerative brain disorder G31.9 and Unsteady gait R26.81 [facility] [address] [place] [address] 72297- 5973 May, [facility] [id number] [place] [address] 38641- 2871 May, Mood disorder F39 [facility] [id number] [place] [address] 85394- 0471 May, [facility] [id number] [place] [address] 43154- 3083 Apr, [facility] [address] [place] [address] 72483- 4732 Mar, [facility] [id number] [place] [address] 12168- 3434 Mar, [facility] [address], [place] [address]- 1799 Mar, [facility] [id number] [place] [address] 90337- 6996 Mar, [facility] [address], [place] [address]- 9867 Mar, [facility] [id number] [place] [address] 55995- 3673 Mar, Stress incontinence of urine N39.3 [facility] [id number] [id number] Mar, [facility] [address] [facility] [id number] [place] [address]- 1498 Feb, [facility] [place] [facility] [address] [id number] [place] [address]- 3584 Feb, [facility] [place] [facility] [address] [id number] [place] [address]- 9393 Feb, [facility] [place] [facility] [address] [id number] [place] [address]- 9876 Feb, [facility] [place] [facility] [address] [id number] [place] [address]- 0309 Feb, [facility] [place] [facility] [address] [id number] [place] [address]- 2696 Feb, [facility] [place] [facility] [address] [facility] [id number] [place] [address]- 1418 Feb, [facility] [place] [facility] [address] [facility] [id number] [place] [address]- 4750 Jan, [facility] [place] [facility] [address] [id number] [place] [address]- 5713 Jan, [facility] [place] [facility] [address] [facility] [id number] [place] [address]- 9373 Jan, [facility] [place] [facility] [address] [facility] [id number] [place] [address]- 8388 Jan, [facility] [place] [facility] [address] [facility] [id number] [place] [address]- 6035 Jan, [facility] [place] [facility] [address] [facility] [id number] [place] [address]- 9492 Jan, [facility] [place] [facility] [address] [id number] [place] [address]- 1331 Jan, [facility] [place] [facility] [address] [facility] [id number] [place] [address]- 5392 Jan, General weakness R53.1 and Dementia with behavioral disturbance, unspecified dementia type F03.91 [facility] [address], [place] [address]- 8305 December, [facility] [id number] [place] [address] 05120- 5582 December, Other chronic pain G89.29 [facility] [id number] [place] [address] 12996- 8581 December, [facility] [id number] [place] [address] 34305- 0859 December, Unsteady gait R26.81 ; Generalized weakness R53.1 ; Unspecified mental disorder due to known physiological condition F09 and Generalized headaches R51 [facility] [id number] [place] [address] 15524- 0346 December, [facility] [id number] [place] [address] 54456- 0397 Nov, Anxiety F41.9 [facility] [id number] [place] [address] 45908- 5734 Nov, Mood disorder F39 [facility] [id number] [place] [address] 21216- 6101 Oct, [facility] [id number] [place] [address] 59810- 1300 Oct, Anxiety F41.9 [facility] [id number] [place] [address] 42741- 1047 Oct, Other chronic pain G89.29 [facility] [address] [place] [address] 25281- 3480 Sep, Other chronic pain G89.29 ; Pain in left knee M25.562 ; Pain in right knee M25.561 and Anxiety F41.9 [facility] [address], [place] [address]- 2704 Sep, MDD (major depressive disorder), recurrent episode, mild F33.0 ; Degenerative brain disorder G31.9 and Other terminal clerk (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 Z79.899 [facility] [address] [place] [address] 30876- 1886 Sep, [facility] [id number] [place] [address] 24180- 3656 Sep, [facility] [id number] [place] [address] 52852- 9162 Sep, Mood disorder F39 ; Pain of left leg M79.605 and Pain in right leg M79.604 [facility] [id number] [place] [address] 55970- 0431 14 Sep, 2016 Seizures R56.9 [facility] [id number] [place] [address] 47261- 0142 Sep, [facility] [id number] [place] [address] 85075- 8768 Sep, [facility] [id number] [place] [address] 16844- 1614 Sep, [facility] [id number] [place] [address] 36608- 1744 Aug, Bronchitis J40 [facility] [id number] [place] [address] 06891- 6164 Aug, Bronchitis J40 and Encounter for drug screening Z02.83 [facility] [id number] [place] [address] 69849- 3426 Aug, [facility] [id number] [place] [address] 40102 2545 Aug, Seizures R56.9 [facility] [id number] [place] [address] 42809 2546 Aug, Seizures R56.9 [facility] [id number] [place] [address] 88146 2545 Aug, Major depressive disorder, recurrent, moderate F33.1 and Seizures R56.9 [place] [id number] [place] [address] 54311- 7294 Aug, [place] [id number] [place] [address] 31457- 1173 Aug, [place] [id number] [place] [address] 72404- 4345 Aug, Major depressive disorder, recurrent, moderate F33.1 and Seizures R56.9 [place] [id number] [place] [address] 82630- 6442 Jul, Major depressive disorder, recurrent, moderate F33.1 and Degenerative brain disorder G31.9 [place] [id number] [place] [address] 82890- 8326 Jul, Seizures R56.9 [place] [id number] [place] [address] 38748- 1052 Apr, [place] [id number] [place] [address] 77818- 9508 Apr, Major depressive disorder, recurrent, moderate F33.1 ; Anxiety F41.9 and Degenerative brain disorder G31.9 [place] [id number] [place] [address] 72890- 0722 Apr, Mood disorder F39 [place] [id number] [place] [address] 71788- 8101 Apr, Arthritis M19.90 [place] [id number] [place] [address] 07633- 6091 Mar, Arthritis M19.90 ; Degenerative brain disorder G31.9 and Nonintractable generalized idiopathic epilepsy without status epilepticus G40.309 [place] [address] [place] [address] 49112- 9677 Feb, IMMUNIZATIONS No Known Immunizations SOCIAL HISTORY Never Assessed REASON FOR VISIT Change in hydrocodone PLAN OF CARE VITAL SIGNS MEDICATIONS Medication [...] Surgical History 27 brain surgeries including shunt, [place] Surgical History neck fusion 09/26, 09/28 Surgical History right hand surgery Hospitalization History surgeries Hospitalization History seizures 12/2015
--- OUTSIDE RECORDS SUMMARY | 2018-07-01 14:28 | XMS REPORT ---
Author Author JENIFER BRAY Organization [facility] Address [address] [place] [address] Care Team Providers Care International Student Advisor Name Role Phone KATARINA JENIFER Unavailable PROBLEMS Type Condition ICD9-CM Code ELC42-MD Code Onset Dates Condition Status SNOMED Code Problem Other chronic pain G89.29 Active 51170004 Problem Mood disorder F39 Active 63619882 Problem Major depressive disorder, recurrent, moderate F33.1 Active 46375544 Problem Degenerative brain disorder G31.9 Active 09144968 Problem Unsteady gait R26.81 Active 55579723 Problem Anxiety F41.9 Active 43083496 Problem Dementia with behavioral disturbance, unspecified dementia type F03.91 Active 1463696067141 Problem Unspecified mental disorder due to known physiological condition F09 Active 481549703 ALLERGIES No Information SOCIAL HISTORY Never Assessed PLAN OF CARE VITAL SIGNS MEDICATIONS Medication Instructions Dosage Frequency Start Date End Date Duration Status Naproxen 500 MG Orally every 12 hrs 1 tablet as needed 12h December, 30 days Active RESULTS No Results PROCEDURES No Known procedures IMMUNIZATIONS No Known Immunizations MEDICAL (GENERAL) HISTORY Type Description Date Medical History Toxoplasmosis Medical History migraine Medical History dementia Medical History depression Medical History alzheimers disease Medical History epilepsy Medical History COPD Surgical History cholecystectomy Surgical History appendectomy Surgical History 27 brain surgeries including shunt, [place] Surgical History neck fusion 09/26, 09/28 Surgical History right hand surgery Hospitalization History surgeries Hospitalization History seizures 12/2015
--- OUTSIDE RECORDS SUMMARY | 2018-07-01 14:29 | XMS REPORT ---
Author Author JENIFER BRAY [facility] Address [address] [place] [address] Care Team Providers Care Rf Technician Name Role Phone JENIFER BRAY Unavailable PROBLEMS Type Condition ICD9-CM Code AOG22-YY Code Onset Dates Condition Status SNOMED Code Problem Dementia with behavioral disturbance, unspecified dementia type F03.91 Active 9122539599204 Problem Unsteady gait R26.81 Active 59516831 Problem Other chronic pain G89.29 Active 96922258 Problem Mood disorder F39 Active 95811726 Problem Unspecified mental disorder due to known physiological condition F09 Active 984284883 Problem Anxiety F41.9 Active 82084841 ALLERGIES No Information SOCIAL HISTORY Never Assessed [...]
--- OUTSIDE RECORDS SUMMARY | 2018-07-01 14:29 | XMS REPORT ---
Author Author ESTEPHANIA IVAN Organization [facility] Address [address] [place] [address] Care Team Providers Care Managing Editor Name Role Phone ESTEPHANIA IVAN Unavailable PROBLEMS Type Condition ICD9-CM Code GYW38-SR Code Onset Dates Condition Status SNOMED Code Problem Unsteady gait R26.81 Active 07069243 Problem Dementia with behavioral disturbance, unspecified dementia type F03.91 Active 1330755721965 Problem Unspecified mental disorder due to known physiological condition F09 Active 362118512 Problem Mood disorder F39 Active 16147113 Problem Other chronic pain G89.29 Active 77003782 Problem Anxiety F41.9 Active 64767041 Problem PTSD (post-traumatic stress disorder) F43.10 Active 84281047 Problem Depressive disorder, not elsewhere classified F32.9 Active 96474352 Problem Degenerative brain disorder G31.9 Active 97409883 Problem Major depressive disorder, recurrent, moderate F33.1 Active 48368010 Problem Other chronic pain G89.29 Active 63849692 Problem Sleep apnea, unspecified type G47.30 Active 61165969 ALLERGIES No Information ENCOUNTERS Encounter Location Date Diagnosis [place] [id number] [place] [address] 69116- 8039 Feb, [facility] [address] [place] [address] 89018- 8867 Jan, Pain in right knee M25.561 [facility] [address] [place] [address] 38014- 5393 Jan, [facility] [id number] [place] [address] 94651- 1018 Jan, [facility] [address] [place] [address] 43631- 2440 Jan, [place] [address] [address] December, Other [facility] G89.29 [facility] [address] [id number] December, Pain in left knee M25.562 ; Pain in right leg M79.604 ; Other chronic pain G89.29 ; Localized edema R60.0 and PTSD (post-traumatic stress disorder) F43.10 [facility] [id number] [place] [address] 76196- 1258 December, [facility] [id number] [place] [address] 44689- 8421 December, PTSD (post-traumatic stress disorder) F43.10 [facility] [id number] [place] [address] 99694- 5735 December, [place] [address] [id number] [place] [address] 53684- 1111 December, [facility] [id number] [place] [address] 99987- 4871 December, Depressive disorder, not elsewhere classified F32.9 and Cognitive change R41.89 [facility] [id number] [place] [address] 28217- 9526 Nov, Major depressive disorder, recurrent, moderate F33.1 [place] [id number] [address] 0278 Nov, [facility] [id number] [place] [address] 99104- 0375 Nov, [facility] [id number] [place] [address] 85924- 0106 Nov, [facility] [id number] [place] [address] 22960- 0669 Nov, [facility] [address] [place] [address] 04997- 0070 Nov, Mood disorder F39 [facility] [address] [address] 6836 Nov, Depressive disorder, not elsewhere classified F32.9 and Cognitive change R41.89 [facility] [address] [address] 2981 Nov, [facility] [address] [address] 65[address] Nov, [facility] [address] [id number] Oct, Tear of skin of plantar aspect of right foot, initial encounter S91.311A [facility] [id number] [place] [address] 58882- 8894 Oct, [facility] [address], [place] [address] 1589 Oct, [facility] [id number] [place] [address] [id number] Oct, [facility] [id number] [place] [address] [id number] Oct, [facility] [id number] [place] [address] [id number] Sep, [facility] [id number] [id number] 14 Sep, 2017 [facility] [id number] [place] [address] [id number] 13 Sep, 2017 [facility] [id number] [id number] 09 Sep, 2017 [facility] [address], [place] [address]- 7603 08 Sep, 2017 [facility] [address] [address] [address] 06 Sep, 2017 Other chronic pain G89.29 and Pain in left knee M25.562 [facility] [address], [place] [address] 4796 Sep, [facility] [address] [phone] Sep, Plantar fasciitis of left foot M72.2 and Pain in right knee M25.561 [facility] [id number] [id number] Aug, [facility] [address], [place] [address] 8978 Aug, [facility] [address], [place] [address] 1335 Aug, [facility] [address], [place] [address] 7599 Aug, Chronic daily headache R51 [facility] [address], [place] [address] 5856 Aug, [facility] [address] [id number] Aug, Edema, unspecified type R60.9 ; Weight gain R63.5 and Sleep apnea, unspecified type G47.30 [facility] [address] [place] [id number] Jul, Acute pain of left knee M25.562 and Plantar fasciitis of left foot M72.2 [facility] [address] [id number] [address] 1526 Jul, [facility] [address] [id number] Jul, Plantar fasciitis of left foot M72.2 and Chronic daily headache R51 [facility] [id number] [id number] Jul, [facility] [id number] [id number] Jun, [facility] [id number] [address] 0348 Jun, [facility] [id number] [id number] Jun, [facility] [id number] [place] [id number] Jun, [facility] [id number] [id number] May, [facility] [id number] [place] [address] [id number] May, [facility] [id number] [place] [address] 86813- 8117 May, Stress incontinence of urine N39.3 [facility] [id number] [place] [address] [id number] May, [facility] [place] [address] [phone] May, Encounter for examination for admission to fdc Z02.2 ; Toxoplasmosis B58.9 ; Seizures R56.9 ; Major depressive disorder, recurrent, moderate F33.1 ; Degenerative brain disorder G31.9 and Unsteady gait R26.81 [facility] [address] [place] [address] 87788- 8141 May, [facility] [address] [place] [address] 13393- 8895 May, Mood disorder F39 [facility] [address] [address]- 9375 May, [facility] [address] [address] 6168 Apr, [facility] [address], [place] [address]- 7196 Mar, [facility] [id number] [place] [address] [id number]- 7388 Mar, [facility] [address], [place] [address]- 0476 Mar, [facility] [place] [facility] [address] [id number] [place] [address]- 9301 Mar, [facility] [address] [id number] [place] [address]- 2670 Mar, [facility] [place] [facility] [address] [id number] [place] [address]- 4657 Mar, Stress incontinence of urine N39.3 [facility] [id number] [place] [address], [place] [id number] Mar, [facility] [address] [id number] [place] [address]- 5036 Feb, [facility] [place] [facility] [address] [id number] [place] [address]- 5356 Feb, [facility] [place] [facility] [address] [id number] [place] [address]- 6288 Feb, [facility] [place] [facility] [address] [id number] [place] [address]- 4884 Feb, [facility] [place] [facility] [address] [id number] [place] [address]- 2328 Feb, [facility] [place] [facility] [address] [id number] [place] [address]- 7548 Feb, [facility] [place] [facility] [address] [id number] [place] [address]- 2697 Feb, [facility] [place] [facility] [address] [id number] [place] [address]- 2255 Jan, [facility] [place] [facility] [address] [id number] [place] [address]- 3482 Jan, [facility] [place] [facility] [address] [id number] [place] [address]- 8834 Jan, [facility] [place] [facility] [address] [id number] [place] [address]- 4981 Jan, [facility] [place] [facility] [address] [id number], [place] [address]- 1426 Jan, [facility] [address], [place] [address]- 7850 Jan, [facility] [id number] [place] [address] 59815- 1100 Jan, [facility] [id number] [place] [address] 91022- 8474 Jan, General weakness R53.1 and Dementia with behavioral disturbance, unspecified dementia type F03.91 [facility] [address] [place] [address] 38335- 7714 December, [facility] [id number] [place] [address] 00545- 5239 December, Other chronic pain G89.29 [facility] [id number] [place] [address] 33304- 9676 December, [facility] [id number] [place] [address] 79657- 4066 December, Unsteady gait R26.81 ; Generalized weakness R53.1 ; Unspecified mental disorder due to known physiological condition F09 and Generalized headaches R51 [facility] [address], [place] [address]- 5967 December, [facility] [address] [place] [address] 19660- 9948 Nov, Anxiety F41.9 [facility] [address] [place] [address] 71420- 1145 Nov, Mood disorder F39 [facility] [address] [place] [address] 45650- 4362 Oct, [facility] [address] [place] [address] 22738- 8111 Oct, Anxiety F41.9 [facility] [address] [place] [address] 57296- 6590 Oct, Other chronic pain G89.29 [facility] [id number] [place] [address] 55894- 5169 Sep, Other chronic pain G89.29 ; Pain in left knee M25.562 ; Pain in right knee M25.561 and Anxiety F41.9 [facility] [address] 15625- 2721 Sep, MDD (major depressive disorder), recurrent episode, mild F33.0 ; Degenerative brain disorder G31.9 and Other mcfp (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 Z79.899 [facility] [address] 67508- 1029 Sep, [facility] [address] 05793- 5046 Sep, [facility] [address] 76145- 8907 Sep, Mood disorder F39 ; Pain of left leg M79.605 and Pain in right leg M79.604 [place] [address] 29057- 9966 14 Sep, 2016 Seizures R56.9 [facility] [id number] [place] [address] 44599- 4130 08 Sep, 2016 [facility] [address] 18156- 3447 Sep, [facility] [id number] [place] [address] 62100- 2547 Sep, [facility] [address] 64068- 8175 Aug, Bronchitis J40 [facility] [id number] [place] [address] 78291- 0206 Aug, Bronchitis J40 and Encounter for drug screening Z02.83 [place] [address] 11275- 8876 Aug, [facility] [address], [place] [address]- 3950 Aug, Seizures R56.9 [facility] [id number] [place] [address] 56011- 3166 Aug, Seizures R56.9 [facility] [id number] [place] [address] 62800- 0696 Aug, Major depressive disorder, recurrent, moderate F33.1 and Seizures R56.9 [facility] [address] [place] [address] 88004- 4393 Aug, [facility] [id number] [place] [address] 18321- 1761 Aug, [facility] [id number] [place] [address] 93698- 2414 Aug, Major depressive disorder, recurrent, moderate F33.1 and Seizures R56.9 [facility] [address] [place] [address] 41985- 9517 Jul, Major depressive disorder, recurrent, moderate F33.1 and Degenerative brain disorder G31.9 [facility] [address], [place] [address]- 7872 Jul, Seizures R56.9 [facility] [address], [place] [address]- 5044 Apr, [facility] [address] [place] [address] 83243- 2547 Apr, Major depressive disorder, recurrent, moderate F33.1 ; Anxiety F41.9 and Degenerative brain disorder G31.9 [facility] [address], [place] [address]- 3892 Apr, Mood disorder F39 [facility] [address] [place] [address] 15235- 2634 Apr, 2016 Arthritis M19.90 [facility] [address] [facility] [id number] [place] [address]- 4062 Mar, Arthritis M19.90 ; Degenerative brain disorder G31.9 and Nonintractable generalized idiopathic epilepsy without status epilepticus G40.309 [facility] [address] [facility]] [id number] [place] [address]- 3009 Feb, IMMUNIZATIONS No Known Immunizations SOCIAL HISTORY Never Assessed REASON FOR VISIT knee injection PLAN OF CARE VITAL SIGNS [...] Surgical History 27 brain surgeries including shunt, [place] Surgical History neck fusion 09/26, 09/28 Surgical History right hand surgery Hospitalization History surgeries Hospitalization History seizures 12/2015
--- OUTSIDE RECORDS SUMMARY | 2018-07-01 14:29 | XMS REPORT ---
Author Author Gordon AGUSTIN Organization [facility] Address [address] [place] [address] Care Team Providers Care Subgrade Tester Name Role Phone yashAGUSTIN Cole Unavailable PROBLEMS Type Condition ICD9-CM Code OXR59-JL Code Onset Dates Condition Status SNOMED Code Problem Dementia with behavioral disturbance, unspecified dementia type F03.91 Active 1431873965227 Problem Unsteady gait R26.81 Active 21476672 Problem Other chronic pain G89.29 Active 02649065 Problem Mood disorder F39 Active 69619502 Problem Unspecified mental disorder due to known physiological condition F09 Active 887953372 Problem Anxiety F41.9 Active 66446309 ALLERGIES Substance Reaction Event Type Date Status Morphine Sulfate Unknown Drug Allergy Sep, Active SOCIAL HISTORY Never Assessed PLAN OF CARE Activity Details Follow Up 2 Months Reason: VITAL SIGNS Height 65 in 2016-10-19 Weight 123.0 lbs 2016-10-19 Heart Rate 100 bpm 2016-10-19 Respiratory Rate 20 2016-10-19 BMI 20.47 kg/m2 2016-10-19 Blood pressure systolic 120 mmHg 2016-10-19 Blood pressure diastolic 66 mmHg 2016-10-19 MEDICATIONS Medication Instructions Dosage Frequency Start Date End Date Duration Status Amitriptyline HCl 25 MG Orally Once a day 1 tablet at bedtime 24h Apr, Active Omeprazole 20 mg Orally Once a day 1 capsules 24h Active Depakote 500 mg Orally 2 times a day 3 capsules 12h Active [place] 10-325 MG Orally every 6 hrs 1 tablet as needed 6h Sep, Active ProAir HFA 108 (90 Base) MCG/ACT Inhalation every 4 hrs 2 puffs as needed for cough or short of breath 4h 30 days Active Ondansetron 4 MG Orally every 8 hrs PRN 1 tablet on the tongue and allow to dissolve Aug, Active Advair Diskus 500-50 MCG/DOSE Inhalation Twice a day 1 puff 12h Sep, Active Memantine HCl 5 mg Orally Once a day 1 tablet 24h Sep, 30 day(s ) Active Keppra 500 MG Orally 2 times a day 3 capsules 12h Active Lexapro 20 mg Orally Once a day 1 tablet 24h Active Venlafaxine HCl ER 225 MG Orally Once a day 1 tablet with food 24h Sep, Active RESULTS No Results PROCEDURES No Known procedures IMMUNIZATIONS No Known Immunizations MEDICAL (GENERAL) HISTORY Type Description Date Medical History Toxoplasmosis Medical History migraine Medical History dementia Medical History depression Medical History alzheimers disease Medical History epilepsy Surgical History cholecystectomy Surgical History appendectomy Surgical History 27 brain surgeries including shunt, [place] Surgical History neck fusion 09/26, 09/28 Surgical History right hand surgery Hospitalization History surgeries Hospitalization History seizures 12/2015
--- OUTSIDE RECORDS SUMMARY | 2018-07-01 14:29 | XMS REPORT ---
Author Author Gordon AGUSTIN Organization [facility] Address [address] [place] [address] Care Team Providers Care Bicycle Fitter Name Role Phone yashAGUSTIN Cole Unavailable PROBLEMS Type Condition ICD9-CM Code BEN08-UX Code Onset Dates Condition Status SNOMED Code Problem Dementia with behavioral disturbance, unspecified dementia type F03.91 Active 8991512746079 Problem Unsteady gait R26.81 Active 94851576 Problem Other chronic pain G89.29 Active 87639067 Problem Mood disorder F39 Active 85834314 Problem Unspecified mental disorder due to known physiological condition F09 Active 416909336 Problem Anxiety F41.9 Active 16010015 ALLERGIES Substance Reaction Event Type Date Status Morphine Sulfate Unknown Drug Allergy Jul, Active SOCIAL HISTORY No smoking Hx information available PLAN OF CARE Activity Details Follow Up 2 Months Reason: VITAL SIGNS Height 65 in 2016-08-10 Weight 121.0 lbs 2016-08-10 Heart Rate 108 bpm 2016-08-10 Respiratory Rate 20 2016-08-10 BMI 20.13 kg/m2 2016-08-10 Blood pressure systolic 112 mmHg 2016-08-10 Blood pressure diastolic 74 mmHg 2016-08-10 MEDICATIONS Medication Instructions Dosage Frequency Start Date End Date Duration Status Amitriptyline HCl 25 MG Orally Once a day at bedtime prn sleep 1 tablet Apr, Active Lexapro 20 mg Orally Once a day 1 tablet 24h Active ChlorproMAZINE HCl 10 MG Orally Three times a day prn and 2 tabs at bedtime 1 tablet 30 days Active Keppra 500 MG Orally 2 times a day 3 capsules 12h Active Topamax 100 MG Orally 3 times a day 1 tablet 8h Active Venlafaxine HCl ER 225 MG Orally Once a day 1 tablet with food 24h Active Clonazepam 1 MG Orally Twice a day prn anxiety 1 tablet Apr, Active ProAir HFA 108 (90 Base) MCG/ACT Inhalation every 4 hrs 2 puffs as needed 4h Active Breo Ellipta 100-25 MCG/INH Inhalation Once a day 1 puff 24h Active [place] 10-325 MG Orally every 6 hrs 1 tablet as needed 6h Jul, Active Depakote 500 MG Orally 2 times a day 3 capsules 12h Active Omeprazole 20 mg Orally One capsule by mouth prior to meals capsules Active RESULTS No Results PROCEDURES Procedure Date Ordered Related Diagnosis Body Site Office Visit, Est Pt., Level 4 Aug 10, 2016 IMMUNIZATIONS No Known Immunizations
--- OUTSIDE RECORDS SUMMARY | 2018-07-01 14:29 | XMS REPORT ---
Author Author ESTEPHANIA IVAN Organization [facility] Address [address] [place] [address] Care Team Providers Care Clinical Therapist Name Role Phone ESTEPHANIA IVAN Unavailable PROBLEMS Type Condition ICD9-CM Code BRY17-OS Code Onset Dates Condition Status SNOMED Code Problem Unsteady gait R26.81 Active 31714761 Problem Dementia with behavioral disturbance, unspecified dementia type F03.91 Active 3563131665469 Problem Unspecified mental disorder due to known physiological condition F09 Active 118112102 Problem Mood disorder F39 Active 09636413 Problem Other chronic pain G89.29 Active 78252308 Problem Anxiety F41.9 Active 65386916 Problem PTSD (post-traumatic stress disorder) F43.10 Active 02349194 Problem Depressive disorder, not elsewhere classified F32.9 Active 59227215 Problem Degenerative brain disorder G31.9 Active 38021366 Problem Major depressive disorder, recurrent, moderate F33.1 Active 78298847 Problem Other chronic pain G89.29 Active 56895576 Problem Sleep apnea, unspecified type G47.30 Active 42330918 ALLERGIES No Information ENCOUNTERS Encounter Location Date Diagnosis [facility] [address] [address] Feb, [facility] [id number] [place] [address] 75916- 9809 Feb, [facility] [id number] [place] [address] 01391- 7993 Jan, [facility] [id number] [place] [address] 21967- 9933 Jan, Pain in right knee M25.561 [facility] [id number] [place] [address] 26854- 3225 Jan, [place] [address] [address] 5[address] Jan, [facility] [id number] [place] [address] 13169- 1714 Jan, [facility] [id number] [address] December, Other chronic pain G89.29 [facility] [address] [place] [id number] December, Pain in left knee M25.562 ; Pain in right leg M79.604 ; Other chronic pain G89.29 ; Localized edema R60.0 and PTSD (post-traumatic stress disorder) F43.10 [facility] [id number] [place] [address] 20574- 1125 December, [facility] [id number] [place] [address] 88881- 0049 December, PTSD (post-traumatic stress disorder) F43.10 [facility] [id number] [place] [address] 79347- 3679 December, [facility] [id number] [place] [address] 68295- 9937 December, [facility] [id number] [place] [address] 92271- 0292 December, Depressive disorder, not elsewhere classified F32.9 and Cognitive change R41.89 [facility] [id number] [place] [address] 68373- 3563 Nov, Major depressive disorder, recurrent, moderate F33.1 [facility] [id number] [place] [address] 79990- 4353 Nov, [facility] [id number] [place] [address] 59100- 1410 Nov, [facility] [address] [place] [address] 93767- 0952 Nov, [facility] [id number] [address] [address] Nov, [facility] [address], [place] [address] 9982 Nov, Mood disorder F39 [facility] [id number] [address] 8926 Nov, Depressive disorder, not elsewhere classified F32.9 and Cognitive change R41.89 [facility] [address], [place] [address] 9457 Nov, [facility] [id number] [address] 0798 Nov, [facility] [address] [place] [id number] Oct, Tear of skin of plantar aspect of right foot, initial encounter S91.311A [facility] [address] [address] 3111 Oct, [facility] [id number] [address] [address] Oct, [facility] [id number] [id number] Oct, [facility] [id number] [id number] Oct, [facility] [id number] [id number] Sep, [facility] [address] [id number] [id number] 14 Sep, 2017 [facility] [id number] [id number] 13 Sep, 2017 [facility] [id number] [id number] 09 Sep, 2017 [facility] [id number] [address] 7500 Sep, [facility] [id number] [address]- 7504 Sep, Other chronic pain G89.29 and Pain in left knee M25.562 [facility] [address], [place] [address] 7039 Sep, [facility] [address] [place] [id number] Sep, Plantar fasciitis of left foot M72.2 and Pain in right knee M25.561 [facility] [id number] [place] [id number] Aug, [facility] [id number] [place] [address] 01391- 5207 Aug, [facility] [id number] [place] [address] 96283- 3125 Aug, [facility] [address] [place] [address] 13251- 1700 Aug, Chronic daily headache R51 [facility] [address] [place] [address] 85972- 1499 Aug, [facility] [address] [id number] Aug, Edema, unspecified type R60.9 ; Weight gain R63.5 and Sleep apnea, unspecified type G47.[address] [facility] [address] [id number] Jul, Acute pain of left knee M25.562 and Plantar fasciitis of left foot M72.2 [facility] [address], [place] [address]- 7216 Jul, [facility] [address] [place] [id number] Jul, Plantar fasciitis of left foot M72.2 and Chronic daily headache R51 [facility] [id number] [place] [id number] Jul, [facility] [id number] [id number] Jun, [facility] [address], [place] [address] 2546 Jun, [facility] [id number] [id number] Jun, [facility] [id number] [id number] Jun, [facility] [id number] [id number] May, [facility] [id number] [place] [id number] May, [facility] [address], [place] [address]- 2586 May, Stress incontinence of urine N39.3 [facility] [id number] [id number] May, [facility] [address] [place] [id number] May, Encounter for examination for admission to snf Z02.2 ; Toxoplasmosis B58.9 ; Seizures R56.9 ; Major depressive disorder, recurrent, moderate F33.1 ; Degenerative brain disorder G31.9 and Unsteady gait R26.81 [facility] [address] 67[address] May, [facility] [address] 2954 May, Mood disorder F39 [facility] [address], [place] [address]- 0237 May, [facility] [address], [place] [address]- 1376 Apr, [facility] [id number], [place] [address]- 2726 Mar, [facility] [place] [facility] [address] [id number] [place] [address]- 1643 Mar, [facility] [place] [facility] [address] [id number] [place] [address]- 1481 Mar, [facility] [place] [facility] [address] [id number] [place] 5738 Mar, [facility] [place] [facility] [address] [id number] [place] [address]- 0550 Mar, [facility] [place] [facility] [address] [id number] [place] [address]- 4403 Mar, Stress incontinence of urine N39.3 [facility] [id number] [place] [address], [place] [id number] Mar, [facility] [place] [facility] [address] [id number] [place] [address]- 5904 Feb, [facility] [place] [facility] [address] [id number] [place] [address]- 3799 Feb, [facility] [place] [facility] [address] [id number] [place] [address]- 0596 Feb, [facility] [place] [facility] [address] [id number] [place] [address]- 2059 Feb, [facility] [place] [facility] [address] [id number] [place] [address]- 4916 Feb, [facility] [place] [facility] [address] [id number] [place] [address]- 9662 Feb, [facility] [place] [facility] [address] [id number] [place] [address]- 8935 Feb, [facility] [place] [facility] [address] [id number] [place] 2093 Jan, [facility] [place] [facility] [address] [id number] [place] [address]- 0727 Jan, [facility] [place] [facility] [address] [id number] [address]- 2063 Jan, [facility] [address], [place] [address]- 9153 Jan, [facility] [id number] [place] [address] 57244- 5935 Jan, [facility] [address], [place] [address]- 2944 Jan, [facility] [id number] [place] [address] 30967- 7735 Jan, [facility] [address] [place] [address] 36883- 6154 Jan, General weakness R53.1 and Dementia with behavioral disturbance, unspecified dementia type F03.91 [facility] [id number] [place] [address] 74802- 5115 December, [facility] [id number] [place] [address] 61581- 6493 December, Other chronic pain G89.29 [facility] [id number] [place] [address] 44384- 3018 December, [facility] [id number] [place] [address] 73598- 3705 December, Unsteady gait R26.81 ; Generalized weakness R53.1 ; Unspecified mental disorder due to known physiological condition F09 and Generalized headaches R51 [facility] [address], [place] [address]- 9852 December, [facility] [address], [place] [address]- 3228 Nov, Anxiety F41.9 [facility] [id number] [place] [address] 54444- 5690 Nov, Mood disorder F39 [facility] [address], [place] [address]- 7041 Oct, [place] [id number] [place] [address] 16292- 6823 Oct, Anxiety F41.9 [facility] [id number] [place] [address] 85178- 5424 Oct, Other chronic pain G89.29 [facility] [id number] [place] [address] 92506- 3932 Sep, Other chronic pain G89.29 ; Pain in left knee M25.562 ; Pain in right knee M25.561 and Anxiety F41.9 [facility] [id number] [place] [address] 90673- 2644 Sep, MDD (major depressive disorder), recurrent episode, mild F33.0 ; Degenerative brain disorder G31.9 and 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 [facility] [id number] [place] [address] 53771- 4914 Sep, [facility] [id number] [place] [address] 29299- 2806 Sep, [facility] [id number] [place] [address] 78522- 0844 Sep, Mood disorder F39 ; Pain of left leg M79.605 and Pain in right leg M79.604 [facility] [id number] [place] [address] 68128- 9854 Sep, Seizures R56.9 [facility] [id number] [place] [address] 79397- 3353 Sep, [facility] [id number] [place] [address] 93724- 4418 Sep, [facility] [id number] [place] [address] 26167- 0685 Sep, [facility] [id number] [place] [address] 67678- 1568 Aug, Bronchitis J40 [facility] [id number] [place] [address] 58714- 4472 Aug, Bronchitis J40 and Encounter for drug screening Z02.83 [facility] [id number] [place] [address] 55754- 2297 Aug, [facility] [id number] [place] [address] 48062- 0567 Aug, Seizures R56.9 [facility] [id number] [place] [address] 07179- 9602 Aug, Seizures R56.9 [place] [address] [address]286- 4307 Aug, Major depressive disorder, recurrent, moderate F33.1 and Seizures R56.9 [place] [id number] [place] [address] 20272- 9715 Aug, [facility] [id number] [place] [address] 17607- 5926 Aug, [facility] [id number] [place] [address] 94630- 1050 Aug, Major depressive disorder, recurrent, moderate F33.1 and Seizures R56.9 [place] [id number] [place] [address] 39632- 8315 Jul, Major depressive disorder, recurrent, moderate F33.1 and Degenerative brain disorder G31.9 [facility] [address] [place] [address] 23479- 7176 Jul, Seizures R56.9 [facility] [id number] [place] [address] 69452- 3656 Apr, [facility] [id number] [place] [address] 24110- 9918 Apr, Major depressive disorder, recurrent, moderate F33.1 ; Anxiety F41.9 and Degenerative brain disorder G31.9 [place] [id number] [address]- 0262 Apr, Mood disorder F39 [facility] [address] [facility] [id number], [place] [address]- 7421 Apr, Arthritis M19.90 [place] [address] [facility] [id number], [place] [address]- 9788 Mar, Arthritis M19.90 ; Degenerative brain disorder G31.9 and Nonintractable generalized idiopathic epilepsy without status epilepticus G40.309 [place] [address] [facility] [id number] [place] [address]- 3218 Feb, IMMUNIZATIONS No Known Immunizations SOCIAL HISTORY Never Assessed REASON FOR VISIT CASSANDRA note PLAN OF CARE VITAL SIGNS MEDICATIONS Medication Instructions Dosage Frequency Start Date End Date Duration Status Neurontin 300 MG Orally 3 times a day 1 capsule before bedtime 8h Aug, 30 day(s) Active RESULTS No Results PROCEDURES No Known procedures INSTRUCTIONS MEDICATIONS ADMINISTERED No Known Medications MEDICAL (GENERAL) HISTORY Type Description Date Medical History Toxoplasmosis Medical History migraine Medical History dementia Medical History depression Medical History alzheimers disease Medical History epilepsy Medical History COPD Surgical History cholecystectomy Surgical History appendectomy Surgical History 27 brain surgeries including shunt, [place] Surgical History neck fusion 09/26, 09/28 Surgical History right hand surgery Hospitalization History surgeries Hospitalization History seizures 12/2015
--- OUTSIDE RECORDS SUMMARY | 2018-07-01 14:29 | XMS REPORT ---
Author Author JENIFER BRAY Organization [facility] Address [address] [place] [address] Care Team Providers Care Lean Manufacturing Specialist Name Role Phone KATARINA JENIFER Unavailable PROBLEMS Type Condition ICD9-CM Code ERX88-JA Code Onset Dates Condition Status SNOMED Code Problem Anxiety F41.9 Active 18885708 Problem Unsteady gait R26.81 Active 68631235 Problem Unspecified mental disorder due to known physiological condition F09 Active 471871612 Problem Mood disorder F39 Active 67726723 Problem Other chronic pain G89.29 Active 20589535 Problem Depressive disorder, not elsewhere classified F32.9 Active 44166729 Problem Other chronic pain G89.29 Active 49820237 Problem Major depressive disorder, recurrent, moderate F33.1 Active 11758463 Problem Dementia with behavioral disturbance, unspecified dementia type F03.91 Active 7460259228140 Problem Sleep apnea, unspecified type G47.30 Active 21062795 Problem Degenerative brain disorder G31.9 Active 07686748 ALLERGIES No Information ENCOUNTERS Encounter Location Date Diagnosis [place] [id number] [place] [address] 11275- 4846 December, [place] [id number] [place] [address] 69919- 8667 December, [facility] [id number] [place] [address] 12631- 4735 December, Depressive disorder, not elsewhere classified F32.9 and Cognitive change R41.89 [facility] [id number] [place] [address] 84010- 2663 Nov, Major depressive disorder, recurrent, moderate F33.1 [facility] [id number] [place] [address] 45429- 4884 Nov, [facility] [id number] [address] 74[address] Nov, [facility] [address] [address] 8[address] Nov, [facility] [address] [address] 6459 Nov, [facility] [id number] [place] [address] 37265- 7642 Nov, Mood disorder F39 [facility] [address] [address] 7004 Nov, Depressive disorder, not elsewhere classified F32.9 and Cognitive change R41.89 [facility] [address] [address] 6334 Nov, [facility] [id number] [place] [address] 93213- 4963 Nov, [facility] [address] [place] [id number] Oct, Tear of skin of plantar aspect of right foot, initial encounter S91.311A [facility] [address] [address] 3861 Oct, [facility] [address] [address] Oct, [facility] [id number] [place] [id number] Oct, [facility] [id number] [place] [id number] Oct, [facility] [id number] [place] [id number] 28 Sep, 2017 [facility] [id number] [id number] 14 Sep, 2017 [facility] [id number] [place] [id number] 13 Sep, 2017 [facility] [id number] [place] [id number] Sep, [facility] [id number] [place] [address] 77831- 0606 Sep, [facility] [address] [address] 6[address] Sep, Other chronic pain G89.29 and Pain in left knee M25.562 [facility] [id number] [place] [address] [id number]- 1389 Sep, [facility] [address] [place] [id number] Sep, Plantar fasciitis of left foot M72.2 and Pain in right knee M25.561 [facility] [id number] [place] [id number] Aug, [facility] [id number] [place] [address] 86018- 7682 Aug, [facility] [id number] [place] [address] 94903- 3178 Aug, [facility] [id number] [place] [address] 80700- 5823 Aug, Chronic daily headache R51 [facility] [address] [address] Aug, [facility] [address] [place] [id number] Aug, Edema, unspecified type R60.9 ; Weight gain R63.5 and Sleep apnea, unspecified type G47.30 [facility] [address] [place] [id number] Jul, Acute pain of left knee M25.562 and Plantar fasciitis of left foot M72.2 [facility] [address] [address]- 7126 Jul, [facility] [address] [place] [id number] Jul, Plantar fasciitis of left foot M72.2 and Chronic daily headache R51 [facility] [id number] [place] [id number] Jul, [facility] [id number] [place] [id number] Jun, [facility] [address] [address] 2546 Jun, [facility] [id number] [id number] Jun, [facility] [id number] [place] [id number] Jun, [facility] [id number] [place] [id number] May, [facility] [id number] [place] [id number] May, [facility] [address] [address] 30[address] May, Stress incontinence of urine N39.3 [facility] [id number] [place] [id number] May, [facility] [address] [place] [id number] May, Encounter for examination for admission to custodial Z02.2 ; Toxoplasmosis B58.9 ; Seizures R56.9 ; Major depressive disorder, recurrent, moderate F33.1 ; Degenerative brain disorder G31.9 and Unsteady gait R26.81 [facility] [id number] [address] 3[address] May, [facility] [address] [address] May, Mood disorder F39 [facility] [id number] [address] May, [facility] [id number] [place] [address]- 0732 Apr, [facility] [place] [facility] [address] [id number] [place] [address]- 6750 Mar, [facility] [place] [facility] [address] [id number] [place] [address]- 0786 Mar, [facility] [place] [facility] [address] [id number] [place] [address]- 0020 Mar, [facility] [place] [facility] [address] [id number] [place] [address]- 3727 Mar, [facility] [place] [facility] [id number] [place] [address], [place] [address]- 3828 Mar, [facility] [place] [facility] [address] [id number] [place] [address]- 1631 Mar, Stress incontinence of urine N39.3 [facility] [address] [id number] [place] [address], [place] [id number] Mar, [facility] [place] [facility] [address] [id number] [place] [address]- 3001 Feb, [facility] [place] [facility] [address] [id number] [place] [address]- 5974 Feb, [facility] [place] [facility] [address] [id number] [place] [address]- 7594 Feb, [facility] [place] [facility] [address] [id number] [place] [address]- 4003 Feb, [facility] [place] [facility] [address] [id number] [place] [address]- 8251 Feb, [facility] [place] [facility] [address] [id number] [place] [address]- 4748 Feb, [facility] [place] [facility] [address] [id number] [place] [address]- 1796 Feb, [facility] [place] [facility] [address] [id number] [place] [id number] 1805 Jan, [facility] [address] [address]- 0756 Jan, [facility] [id number] [place] [address] 90233- 4902 Jan, [facility] [address] [address]- 7569 Jan, [facility] [id number] [place] [address] 68850- 5330 Jan, [facility] [id number] [place] [address] 54925- 3990 Jan, [facility] [id number] [place] [address] 20481- 9555 Jan, [facility] [id number] [place] [address] 93686- 2474 Jan, General weakness R53.1 and Dementia with behavioral disturbance, unspecified dementia type F03.91 [facility] [id number] [place] [address] 54657- 5092 December, [facility] [id number] [place] [address] 26370- 6357 December, Other chronic pain G89.29 [facility] [id number] [place] [address] 17256- 7063 December, [facility] [id number] [place] [address] 67451- 4073 December, Unsteady gait R26.81 ; Generalized weakness R53.1 ; Unspecified mental disorder due to known physiological condition F09 and Generalized headaches R51 [facility] [id number] [place] [address] 70257- 7025 December, [facility] [id number] [place] [address] 81873- 1634 Nov, Anxiety F41.9 [facility] [id number] [place] [address] 70299- 6250 Nov, Mood disorder F39 [facility] [id number] [place] [address] 87309- 7867 Oct, [facility] [id number] [place] [address] 41263- 0146 Oct, Anxiety F41.9 [facility] [id number] [place] [address] 71669 2547 Oct, Other chronic pain G89.29 [facility] [id number] [place] [address] 48383- 6368 Sep, Other chronic pain G89.29 ; Pain in left knee M25.562 ; Pain in right knee M25.561 and Anxiety F41.9 [facility] [id number] [place] [address] 25228- 8175 Sep, MDD (major depressive disorder), recurrent episode, mild F33.0 ; Degenerative brain disorder G31.9 and 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 [facility] [id number] [place] [address] 52231- 4116 Sep, [facility] [id number] [place] [address] 67623- 4629 Sep, [facility] [id number] [place] [address] 96250- 3315 Sep, Mood disorder F39 ; Pain of left leg M79.605 and Pain in right leg M79.604 [facility] [address] [address]- 1206 Sep, Seizures R56.9 [facility] [id number] [place] [address] 53628- 8324 Sep, [facility] [address] [address]- 9113 Sep, [facility] [id number] [address]- 6241 Sep, [facility] [id number] [place] [address] 50428- 2886 Aug, Bronchitis J40 [facility] [id number] [place] [address] 85539- 0306 Aug, Bronchitis J40 and Encounter for drug screening Z02.83 [facility] [id number] [place] [address] 62677- 8260 Aug, [facility] [id number] [place] [address] 95374- 7442 Aug, Seizures R56.9 [facility] [id number] [place] [address] 97220- 5702 Aug, Seizures R56.9 [facility] [id number] [place] [address] 88988- 6239 Aug, Major depressive disorder, recurrent, moderate F33.1 and Seizures R56.9 [facility] [id number] [place] [address] 43408- 7378 Aug, [facility] [id number] [place] [address] 12299- 3657 Aug, [facility] [id number] [place] [address] 12493- 1617 Aug, Major depressive disorder, recurrent, moderate F33.1 and Seizures R56.9 [facility] [id number] [place] [address] 34784- 9344 Jul, Major depressive disorder, recurrent, moderate F33.1 and Degenerative brain disorder G31.9 [facility] [id number] [place] [address] 70476- 7966 Jul, Seizures R56.9 [facility] [address] [address]- 6546 Apr, [facility] [id number] [address]- 4297 Apr, Major depressive disorder, recurrent, moderate F33.1 ; Anxiety F41.9 and Degenerative brain disorder G31.9 [place] [id number] [address]- 3193 Apr, Mood disorder F39 [place] [id number] [address]- 5934 Apr, Arthritis M19.90 [place] [id number] [place] [address] 09041- 1133 Mar, Arthritis M19.90 ; Degenerative brain disorder G31.9 and Nonintractable generalized idiopathic epilepsy without status epilepticus G40.309 [place] [id number] [address]- 8059 Feb, IMMUNIZATIONS No Known Immunizations SOCIAL HISTORY [...] Surgical History 27 brain surgeries including shunt, [place] Surgical History neck fusion 09/26, 09/28 Surgical History right hand surgery Hospitalization History surgeries Hospitalization History seizures 12/2015
--- OUTSIDE RECORDS SUMMARY | 2018-07-01 14:29 | XMS REPORT ---
Author Author JENIFER BRAY [facility] Address [address] [place] [address] Care Team Providers Care Lime Burner Name Role Phone JENIFER BRAY Unavailable PROBLEMS Type Condition ICD9-CM Code HCJ11-AW Code Onset Dates Condition Status SNOMED Code Problem Dementia with behavioral disturbance, unspecified dementia type F03.91 Active 0867164295527 Problem Unsteady gait R26.81 Active 49794805 Problem Other chronic pain G89.29 Active 34012404 Problem Mood disorder F39 Active 40073643 Problem Unspecified mental disorder due to known physiological condition F09 Active 564223776 Problem Anxiety F41.9 Active 23531539 ALLERGIES Unknown Allergies SOCIAL HISTORY No smoking Hx information available PLAN OF CARE VITAL SIGNS MEDICATIONS Unknown Medications RESULTS No Results PROCEDURES No Known procedures IMMUNIZATIONS No Known Immunizations
--- OUTSIDE RECORDS SUMMARY | 2018-07-01 14:30 | XMS REPORT ---
Author Author JENIFER BRAY [facility] Address [address] [place] [address] Care Team Providers Care Speaker Mounter Name Role Phone JENIFER BRAY Unavailable PROBLEMS Type Condition ICD9-CM Code WUJ82-PX Code Onset Dates Condition Status SNOMED Code Problem Dementia with behavioral disturbance, unspecified dementia type F03.91 Active 3105696701939 Problem Unsteady gait R26.81 Active 40798490 Problem Other chronic pain G89.29 Active 10060796 Problem Mood disorder F39 Active 03679906 Problem Unspecified mental disorder due to known physiological condition F09 Active 494699201 Problem Anxiety F41.9 Active 40292608 ALLERGIES Substance Reaction Event Type Date Status Morphine Sulfate Unknown Drug Allergy Sep, Active SOCIAL HISTORY Never Assessed PLAN OF CARE VITAL SIGNS Height 65 in 2016-10-18 Weight 124 lbs 2016-10-18 Temperature 98.5 degrees Fahrenheit 2016-10-18 Heart Rate 68 bpm 2016-10-18 Respiratory Rate 18 2016-10-18 BMI 20.63 kg/m2 2016-10-18 Blood pressure systolic 118 mmHg 2016-10-18 Blood pressure diastolic 78 mmHg 2016-10-18 MEDICATIONS Medication Instructions Dosage Frequency Start Date End Date Duration Status [place] 10-325 MG Orally every 6 hrs 1 tablet as needed 6h Sep, Active Ondansetron 4 MG Orally every 8 hrs PRN 1 tablet on the tongue and allow to dissolve Aug, Active ProAir HFA 108 (90 Base) MCG/ACT Inhalation every 4 hrs 2 puffs as needed for cough or short of breath 4h 30 days Active Omeprazole 20 mg Orally Once a day 1 capsules 24h Active Venlafaxine HCl ER 225 MG Orally Once a day 1 tablet with food 24h Sep, 30 day(s) Active Memantine HCl 5 mg Orally Once a day 1 tablet 24h Sep, 30 day(s ) Active Advair Diskus 500-50 MCG/DOSE Inhalation Twice a day 1 puff 12h Sep, Active Depakote 500 mg Orally 2 times a day 3 capsules 12h Active Amitriptyline HCl 25 MG Orally Once a day 1 tablet at bedtime 24h 22 Apr, 2016 135 days Active Lexapro 20 mg Orally Once a day 1 tablet 24h 90 days Active Keppra 500 MG Orally 2 times a day 3 capsules 12h Active RESULTS No Results PROCEDURES No Known procedures IMMUNIZATIONS No Known Immunizations MEDICAL (GENERAL) HISTORY Type Description Date Medical History Toxoplasmosis Medical History migraine Medical History dementia Medical History depression Medical History alzheimers disease Medical History epilepsy Surgical History cholecystectomy Surgical History appendectomy Surgical History 27 brain surgeries including shunt, [place] Surgical History neck fusion 09/26, 09/28 Surgical History right hand surgery Hospitalization History surgeries Hospitalization History seizures 12/2015
--- OUTSIDE RECORDS SUMMARY | 2018-07-01 14:31 | XMS REPORT ---
Author Author JENIFER BRAY Organization [facility] Address [address] [place] [address] Care Team Providers Care Roll Changer Name Role Phone JENIFER BRAY Unavailable PROBLEMS Type Condition ICD9-CM Code [id number] Code Onset Dates Condition Status SNOMED Code Problem Other chronic pain G89.29 Active 95251609 Problem Unspecified mental disorder due to known physiological condition F09 Active 797238784 Problem Anxiety F41.9 Active 57514237 Problem Mood disorder F39 Active 37319952 Problem Other chronic pain G89.29 Active 36944914 Problem Sleep apnea, unspecified type G47.30 Active 44252096 Problem Dementia with behavioral disturbance, unspecified dementia type F03.91 Active [id number] Problem Unsteady gait R26.81 Active 26284102 Problem Degenerative brain disorder G31.9 Active 45367221 Problem Major depressive disorder, recurrent, moderate F33.1 Active 94135242 ALLERGIES No Information ENCOUNTERS Encounter Location Date Diagnosis [facility] [id number] [address] Oct, [facility] [id number] [address] Oct, [facility] [id number] [id number] Oct, [facility] [address] [id number] [id number] Oct, [facility] [id number] [place] [id number] 28 Sep, 2017 [facility] [id number] [id number] 14 Sep, 2017 [facility] [id number] [place] [id number] Sep, [facility] [id number] [id number] Sep, [facility] [address], [place] [address] Sep, [facility] [address], [place] [address] Sep, Other chronic pain G89.29 and Pain in left knee M25.562 [facility] [address] [place] [address] Sep, [facility] [address] [id number] Sep, Plantar fasciitis of left foot M72.2 and Pain in right knee M25.561 [facility] [id number] [id number] Aug, [facility] [id number] [place] [address]- 67[address] Aug, [facility] [address] [address] Aug, [facility] [id number] [place] [id number]- [phone] Aug, Chronic daily headache R51 [facility] [address] [address] Aug, [facility] [address] [place] [id number] Aug, Edema, unspecified type R60.9 ; Weight gain R63.5 and Sleep apnea, unspecified type G47.[address] [facility] [address] [phone] Jul, Acute pain of left knee M25.562 and Plantar fasciitis of left foot M72.2 [facility] [address] [address] Jul, [facility] [address] [id number] Jul, Plantar fasciitis of left foot M72.2 and Chronic daily headache R51 [facility] [id number] [id number] Jul, [facility] [id number][place] [id number] Jun, [facility] [address] [facility] [id number] [address]46 Jun, [facility] [id number] [id number] Jun, [facility] [id number] [place] [id number] Jun, [facility] [address] [id number] [id number] May, [facility] [id number] [place] [id number] May, [facility] [address] [address] May, Stress incontinence of urine N39.3 [facility] [id number][place] [id number] May, [facility] [address] [id number] May, Encounter for examination for admission to custodial Z02.2 ; Toxoplasmosis B58.9 ; Seizures R56.9 ; Major depressive disorder, recurrent, moderate F33.1 ; Degenerative brain disorder G31.9 and Unsteady gait R26.81 [facility] [id number] [address] May, [facility] [address] [address] May, Mood disorder F39 [facility] [id number] [address] May, [facility] [place] [facility] [address] [id number] [place] [address] Apr, [facility] [place] [facility] [address] [id number] [place] [address] Mar, [facility] [place] [facility] [address] [id number] [place] [address] Mar, [facility] [place] [facility] [address] [id number] [place] [address] Mar, [facility] [place] [facility] [address] [id number] [place] [address] Mar, [facility] [place] [facility] [address] [id number] [place] [address] Mar, [facility] [place] [facility] [address] [id number] [place] [address] Mar, Stress incontinence of urine N39.3 [facility] [address] [id number] [place] [id number] Mar, [facility] [place] [facility] [address] [id number] [place] [address] Feb, [facility] [place] [facility] [address] [id number] [place] [address] Feb, [facility] [place] [facility] [address] [id number] [place] [address] Feb, [facility] [place] [facility] [address] [id number] [address] Feb, [facility] [place] [facility] [address] [id number] [place] [address] Feb, [facility] [place] [facility] [address] [id number] [place] [address] Feb, [facility] [place] [facility] [address] [id number] [place] [address] Feb, [facility] [place] [facility] [address] [id number] [address] Jan, [facility] [address]005[address], [place] [address] Jan, [facility] [address]005[address]100[place], [place] [address] Jan, [facility] [address]100[place], [place] [address] Jan, [facility] [id number] [place] [address]76- 9612 Jan, [facility] [address] [place] [address]- 8155 Jan, [facility] [address] [place] [address] 42373- 2989 Jan, [facility] [id number] [place] [address]81- 0728 Jan, General weakness R53.1 and Dementia with behavioral disturbance, unspecified dementia type F03.91 [facility] [address], [place] [address] December, [facility] [address], [place] [address] December, Other chronic pain G89.29 [facility] [address], [place] [address] December, [facility] [address], [place] [address] December, Unsteady gait R26.81 ; Generalized weakness R53.1 ; Unspecified mental disorder due to known physiological condition F09 and Generalized headaches R51 [facility] [address], [place] [address] December, [facility] [address], [place] [address] Nov, Anxiety F41.9 [facility] [id number] [place] [address] 04661- 4562 Nov, Mood disorder F39 [facility] [id number] [place] [address] 28034- 3043 Oct, [facility] [id number] [place] [address]- 5082 Oct, Anxiety F41.9 [facility] [id number] [place] [address] 09570- 2548 Oct, Other chronic pain G89.29 [facility] [id number] [place] [address] 44880- 8876 Sep, Other chronic pain G89.29 ; Pain in left knee M25.562 ; Pain in right knee M25.561 and Anxiety F41.9 [facility] [id number] [place] [address]11- 6803 Sep, MDD (major depressive disorder), recurrent episode, mild F33.0 ; Degenerative brain disorder G31.9 and Other shelter (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 Z79.899 [facility] [id number] [place] [address] 50541- 8380 Sep, [facility] [id number] [place] [address] 41217- 7366 Sep, [facility] [id number] [place] [address] 80495- 3809 Sep, Mood disorder F39 ; Pain of left leg M79.605 and Pain in right leg M79.604 [facility] [id number] [place] [address] 28590- 8203 Sep, Seizures R56.9 [facility] [id number] [place] [address] 30266- 1302 Sep, [facility] [id number] [place] [address] 49952- 6530 Sep, [facility] [address] [address]- 7[address] Sep, [facility] [id number] [place] [address] 21635- 2736 Aug, Bronchitis J40 [facility] [id number] [place] [address] 03510- 3256 Aug, Bronchitis J40 and Encounter for drug screening Z02.83 [facility] [id number] [place] [address] 02804- 4675 Aug, [facility] [id number] [place] [address] 71755- 5380 Aug, Seizures R56.9 [facility] [id number] [place] [address] 86616- 4058 Aug, Seizures R56.9 [facility] [id number] [place] [address] 66617- 3876 Aug, Major depressive disorder, recurrent, moderate F33.1 and Seizures R56.9 [facility] [id number] [place] [address] 07915- 5797 Aug, [facility] [id number] [place] [address] 80619- 3765 Aug, [facility] [id number] [place] [address] 50239- 1871 Aug, Major depressive disorder, recurrent, moderate F33.1 and Seizures R56.9 [facility] [id number] [place] [address] 41326- 1643 Jul, Major depressive disorder, recurrent, moderate F33.1 and Degenerative brain disorder G31.9 [facility] [id number] [place] [address] 44043- 3412 Jul, Seizures R56.9 [facility] [id number] [place] [address] 30524- 9635 Apr, [address] [address] [id number] [address] 287[address] Apr, Major depressive disorder, recurrent, moderate F33.1 ; Anxiety F41.9 and Degenerative brain disorder G31.9 [address] [address], [place] [address]- 1251 Apr, Mood disorder F39 [address] [place] [address], [place] [address]- 8333 Apr, Arthritis M19.90 [address] [facility] [address], [place] [address]- 7883 Mar, Arthritis M19.90 ; Degenerative brain disorder G31.9 and Nonintractable generalized idiopathic epilepsy without status epilepticus G40.309 [address] [address], [place] [address]- 2781 Feb, IMMUNIZATIONS No Known Immunizations SOCIAL HISTORY Never Assessed REASON FOR VISIT Refill request PLAN OF CARE VITAL SIGNS MEDICATIONS Medication Instructions Dosage Frequency Start Date End Date Duration Status Clonazepam 1 MG Orally Twice a day 1 tablet 12h 28 Sep, 2016 28 days Active RESULTS No Results PROCEDURES No Known procedures INSTRUCTIONS MEDICATIONS ADMINISTERED No Known Medications MEDICAL (GENERAL) HISTORY Type Description Date Medical History Toxoplasmosis Medical History migraine Medical History dementia Medical History depression Medical History alzheimers disease Medical History epilepsy Medical History COPD Surgical History cholecystectomy Surgical History appendectomy Surgical History 27 brain surgeries including shunt, [place] Surgical History neck fusion 09/26, 09/28 Surgical History right hand surgery Hospitalization History surgeries Hospitalization History seizures 12/2015
--- OUTSIDE RECORDS SUMMARY | 2018-07-01 14:32 | XMS REPORT ---
Author Author JASMEET WINSLOW Organization [facility] Address [address] [place] [address] Care Team Providers Care Solvent Plant Operator Name Role Phone JASMEET WINSLOW Unavailable PROBLEMS Type Condition ICD9-CM Code [id number] Code Onset Dates Condition Status SNOMED Code Problem Other chronic pain G89.29 Active 48214040 Problem Unspecified mental disorder due to known physiological condition F09 Active 880367168 Problem Anxiety F41.9 Active 37331871 Problem Mood disorder F39 Active 62285650 Problem Other chronic pain G89.29 Active 50629406 Problem Sleep apnea, unspecified type G47.30 Active 76423637 Problem Dementia with behavioral disturbance, unspecified dementia type F03.91 Active 5855802305750 Problem Unsteady gait R26.81 Active 04408236 Problem Degenerative brain disorder G31.9 Active 43377770 Problem Major depressive disorder, recurrent, moderate F33.1 Active 91383696 ALLERGIES No Information ENCOUNTERS Encounter Location Date Diagnosis [place] [id number] [place] [address] 06664- 2282 Nov, [place] [id number] [place] [address] 73093- 3240 Nov, [place] [id number] [place] [address] 88389- 8510 Nov, [facility] [address] [place] [id number] Oct, Tear of skin of plantar aspect of right foot, initial encounter S91.311A [place] [id number] [place] [address] 80701- 4796 Oct, [place] [id number] [place] [address] 20116- 3596 14 Oct, 2017 [facility] [address] [id number] [id number] Oct, [facility] [address] [id number] [id number] Oct, [facility] [id number] [id number] Sep, [facility] [id number] [id number] Sep, [facility] [address] [id number][place] [id number] Sep, [facility] [id number][place] [id number] Sep, [facility] [address], [place] [address] 8[address] Sep, [facility] [address] [id number], [place] [address] 4146 Sep, Other chronic pain G89.29 and Pain in left knee M25.562 [facility] [address] [id number], [place] [address] Sep, [facility] [address] [place] [id number] Sep, Plantar fasciitis of left foot M72.2 and Pain in right knee M25.561 [facility] [id number][place] [id number] Aug, [facility] [address] [id number], [place] [address] Aug, [facility] [address] [id number], [place] [address] 8339 Aug, [facility] [address], [place] [address] Aug, Chronic daily headache R51 [facility] [address] [id number], [place] [address] 2560 Aug, [facility] [place] [address] [place] [phone] Aug, Edema, unspecified type R60.9 ; Weight gain R63.5 and Sleep apnea, unspecified type G47.[address] [facility] [address] [id number] Jul, Acute pain of left knee M25.562 and Plantar fasciitis of left foot M72.2 [facility] [address], [place] [address] Jul, [facility] [address] [id number] Jul, Plantar fasciitis of left foot M72.2 and Chronic daily headache R51 [facility] [id number] [place] [id number] Jul, [facility] [id number] [place] [address] [id number] Jun, [facility] [address], [place] [address] 9[address] Jun, [facility] [id number] [place] [address] [id number] Jun, [facility] [id number] [place] [address] [id number] Jun, [facility] [id number] [place] [address] [id number] May, [facility] [id number] [place] [address] [id number] May, [facility] [address], [place] [address] May, Stress incontinence of urine N39.3 [facility] [id number] [place] [id number] May, [facility] [id number] May, Encounter for examination for admission to correction Z02.2 ; Toxoplasmosis B58.9 ; Seizures R56.9 ; Major depressive disorder, recurrent, moderate F33.1 ; Degenerative brain disorder G31.9 and Unsteady gait R26.81 [facility] [id number] [place] [address] 71648- 6621 May, [facility] [id number] [place] [address] 34000- 5305 May, Mood disorder F39 [facility] [id number] [place] [address] 96902- 8281 May, [facility] [id number] [place] [address] 27205- 8131 Apr, [facility] [id number] [place] [address] 93120- 9438 Mar, [facility] [id number] [place] [address] 65073- 8546 Mar, [facility] [id number] [place] [address] 00930- 1828 Mar, [facility] [id number] [place] [address] 47418- 6420 Mar, [facility] [id number] [place] [address] 61838- 7266 Mar, [facility] [id number] [place] [address] 42216- 2941 Mar, Stress incontinence of urine N39.3 [facility] [id number] [place] [address] [id number] Mar, [facility] [id number] [place] [address] 40831- 8268 Feb, [facility] [id number] [place] [address] 13558- 9484 Feb, [facility] [id number] [place] [address] 29565- 6608 Feb, [facility] [address] [facility] [id number] [place] [address] 0338 Feb, [facility] [address] [facility] [id number] [place] [address]- 7869 Feb, [facility] [address] [facility] [id number] [place] [address]- 8728 Feb, [facility] [address] [facility] [id number] [place] [address]- 9703 Feb, [facility] [address] [facility] [id number] [place] [address]- 9500 Jan, [facility] [address] [facility] [id number] [place] [address]- 2747 Jan, [facility] [id number] [place] [address]- 3317 Jan, [facility] [id number] [place] [address]- 4608 Jan, [facility] [address], [place] [address]- 3082 Jan, [facility] [address], [place] [address] 3659 Jan, [facility] [address], [place] [address]- 3567 Jan, [facility] [address], [place] [address]- 9441 Jan, General weakness R53.1 and Dementia with behavioral disturbance, unspecified dementia type F03.91 [facility] [address] [facility] [id number], [place] [address]- 8413 December, [facility] [id number], [place] [address]- 5082 December, Other chronic pain G89.29 [facility] [address], [place] [address]- 0870 December, [facility] [id number] [place] [address] 60766- 8395 December, Unsteady gait R26.81 ; Generalized weakness R53.1 ; Unspecified mental disorder due to known physiological condition F09 and Generalized headaches R51 [facility] [id number] [place] [address] 26044- 5134 December, [facility] [id number] [place] [address] 26186- 4597 Nov, Anxiety F41.9 [facility] [id number] [place] [address] 13712- 8380 Nov, Mood disorder F39 [facility] [id number] [place] [address] 86522- 4280 Oct, [place] [id number] [place] [address] 47220- 6438 Oct, Anxiety F41.9 [facility] [id number] [place] [address] 69824- 6865 Oct, Other chronic pain G89.29 [place] [id number] [place] [address] 40245- 8483 Sep, Other chronic pain G89.29 ; Pain in left knee M25.562 ; Pain in right knee M25.561 and Anxiety F41.9 [place] [id number] [place] [address] 45671- 2285 Sep, MDD (major depressive disorder), recurrent episode, mild F33.0 ; Degenerative brain disorder G31.9 and Other 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 Z79.899 [facility] [id number] [place] [address] 15528- 7022 Sep, [facility] [id number] [place] [address] 32461- 8798 Sep, [facility] [id number] [place] [address] 80311- 1261 Sep, Mood disorder F39 ; Pain of left leg M79.605 and Pain in right leg M79.604 [facility] [id number] [place] [address] 87688- 8236 14 Sep, 2016 Seizures R56.9 [facility] [id number] [place] [address] 09122 2546 Sep, [facility] [address] [address] 2547 Sep, [facility] [id number] [place] [address] 93269- 6857 Sep, [facility] [id number] [place] [address] 26125- 7276 Aug, Bronchitis J40 [facility] [address] 97136- 0744 Aug, Bronchitis J40 and Encounter for drug screening Z02.83 [facility] [id number] [place] [address] 23352- 3644 Aug, [facility] [id number] [place] [address] 32715- 0394 Aug, Seizures R56.9 [facility] [id number] [place] [address] 43782 2546 Aug, Seizures R56.9 [facility] [id number] [place] [address] 75905 2549 Aug, Major depressive disorder, recurrent, moderate F33.1 and Seizures R56.9 [facility] [id number] [place] [address] 42078 2546 Aug, [facility] [id number] [place] [address] 87452- 0838 Aug, [facility] [id number] [place] [address] 43925- 8462 Aug, Major depressive disorder, recurrent, moderate F33.1 and Seizures R56.9 [place] [id number] [place] [address] 33151- 2984 Jul, Major depressive disorder, recurrent, moderate F33.1 and Degenerative brain disorder G31.9 [place] [id number] [place] [address] 04343- 8545 Jul, Seizures R56.9 [place] [address] 78512- 2326 Apr, [place] [id number] [place] [address] 92205- 2140 Apr, Major depressive disorder, recurrent, moderate F33.1 ; Anxiety F41.9 and Degenerative brain disorder G31.9 [place] [id number] [place] [address] 05466- 8108 Apr, Mood disorder F39 [place] [id number] [place] [address] 73270- 7086 Apr, Arthritis M19.90 [place] [id number] [place] [address] 68963- 3871 Mar, Arthritis M19.90 ; Degenerative brain disorder G31.9 and Nonintractable generalized idiopathic epilepsy without status epilepticus G40.309 [place] [id number] [place] [address] 01955- 1495 Feb, IMMUNIZATIONS No Known Immunizations SOCIAL HISTORY Never Assessed REASON FOR VISIT Controlled Med Refill PLAN OF CARE VITAL SIGNS MEDICATIONS Medication Instructions Dosage Frequency Start Date End Date Duration Status Clonazepam 1 MG Orally Twice a day 1 tablet 12h Sep, 28 days Active RESULTS No Results PROCEDURES No Known procedures INSTRUCTIONS MEDICATIONS ADMINISTERED No Known Medications MEDICAL (GENERAL) HISTORY Type Description Date Medical History Toxoplasmosis Medical History migraine Medical History dementia Medical History depression Medical History alzheimers disease Medical History epilepsy Medical History COPD Surgical History cholecystectomy Surgical History appendectomy Surgical History 27 brain surgeries including shunt, [place] Surgical History neck fusion 2/5, 2/7 Surgical History right hand surgery Hospitalization History surgeries Hospitalization History seizures 12/2015
--- OUTSIDE RECORDS SUMMARY | 2018-07-01 14:32 | XMS REPORT ---
Author Author JENIFER BRAY [facility] Address [address] [place] [address] Care Team Providers Care Brand Advisor Name Role Phone JENIFER BRAY Unavailable PROBLEMS Type Condition ICD9-CM Code RTJ42-OR Code Onset Dates Condition Status SNOMED Code Problem Dementia with behavioral disturbance, unspecified dementia type F03.91 Active 5730088683413 Problem Unsteady gait R26.81 Active 02696283 Problem Other chronic pain G89.29 Active 27274702 Problem Mood disorder F39 Active 92526813 Problem Unspecified mental disorder due to known physiological condition F09 Active 118834996 Problem Anxiety F41.9 Active 47448084 ALLERGIES Unknown Allergies SOCIAL HISTORY No smoking Hx information available PLAN OF CARE VITAL SIGNS MEDICATIONS Medication Instructions Dosage Frequency Start Date End Date Duration Status Keppra 500 MG Orally 2 times a day 3 capsules 12h Active RESULTS No Results PROCEDURES No Known procedures IMMUNIZATIONS No Known Immunizations
--- OUTSIDE RECORDS SUMMARY | 2018-07-01 14:32 | XMS REPORT ---
Author Author ESTEPHANIA IVAN Organization [facility] Address [address] [place] [address] Care Team Providers Care Junior Assistant Manager Name Role Phone ESTEPHANIA IVAN Unavailable PROBLEMS Type Condition ICD9-CM Code LEB55-TH Code Onset Dates Condition Status SNOMED Code Problem Unsteady gait R26.81 Active 82556004 Problem Dementia with behavioral disturbance, unspecified dementia type F03.91 Active [id number] Problem Unspecified mental disorder due to known physiological condition F09 Active 530482662 Problem Mood disorder F39 Active 79003138 Problem Other chronic pain G89.29 Active 38213340 Problem Anxiety F41.9 Active 95533426 Problem PTSD (post-traumatic stress disorder) F43.10 Active 59729570 Problem Depressive disorder, not elsewhere classified F32.9 Active 01790380 Problem Degenerative brain disorder G31.9 Active 31649154 Problem Major depressive disorder, recurrent, moderate F33.1 Active 40707571 Problem Other chronic pain G89.29 Active 48042733 Problem Sleep apnea, unspecified type G47.30 Active 02940049 ALLERGIES No Information ENCOUNTERS Encounter Location Date Diagnosis [facility] [id number] [address] Feb, [facility] [id number] [place] [address] 64723- 9058 December, [facility] [id number] [address] December, PTSD (post-traumatic stress disorder) F43.10 [facility] [address] [address] December, [facility] [id number] [place] [address] 44577- 4690 December, [facility] [id number] [place] [address] 49028- 3087 December, Depressive disorder, not elsewhere classified F32.9 and Cognitive change R41.89 [facility] [id number] [place] [address] 79053- 6061 Nov, Major depressive disorder, recurrent, moderate F33.1 [facility] [id number] [place] [address] 50668- 5292 Nov, [facility] [id number] [place] [address] 70957- 7931 Nov, [facility] [id number] [place] [address] 08322- 8046 Nov, [facility] [id number] [place] [address] 81626- 6054 Nov, [facility] [id number] [place] [address] 84362- 2147 Nov, Mood disorder F39 [facility] [id number] [place] [address] 55554- 9822 Nov, Depressive disorder, not elsewhere classified F32.9 and Cognitive change R41.89 [facility] [address] [place] [address] 69830- 9924 Nov, [facility] [address] [place] [address] 22813- 5548 Nov, [facility] [address] [id number] Oct, Tear of skin of plantar aspect of right foot, initial encounter S91.311A [facility] [id number] [place] [address] 14997- 5687 Oct, [facility] [address] [place] [address] 47165- 1777 14 Oct, 2017 [facility] [id number] [place] [address] [id number] Oct, [facility] [address] [id number] [id number] Oct, [facility] [id number] [id number] Sep, [facility] [address] [id number] [id number] Sep, [facility] [id number] [id number] Sep, [facility] [address] [id number] [id number] Sep, [facility] [address] [address] 9[address] Sep, [facility] [address] [address] Sep, Other chronic pain G89.29 and Pain in left knee M25.562 [facility] [address] [address] Sep, [facility] [address] [id number] Sep, Plantar fasciitis of left foot M72.2 and Pain in right knee M25.561 [facility] [id number] [id number] Aug, [facility] [address] [address] 265[address] Aug, [facility] [id number] [address] 4326 Aug, [facility] [address] [address] Aug, Chronic daily headache R51 [facility] [id number] [address] 7[address] Aug, [facility] [address] [id number] Aug, Edema, unspecified type R60.9 ; Weight gain R63.5 and Sleep apnea, unspecified type G47.30 [facility] [id number] Jul, Acute pain of left knee M25.562 and Plantar fasciitis of left foot M72.2 [facility] [address] [facility] [id number] [address] Jul, [facility] [id number] Jul, Plantar fasciitis of left foot M72.2 and Chronic daily headache R51 [facility] [id number] [place] [id number] Jul, [facility] [id number] [id number] Jun, [facility] [id number] [address] 25[address] Jun, [facility] [address] [id number] [id number] Jun, [facility] [id number] [place] [address] [id number] Jun, [facility] [id number] [id number] May, [facility] [id number] [place] [address] [id number] May, [facility] [id number] [address] May, Stress incontinence of urine N39.3 [facility] [id number] [place] [id number] May, [address] [id number] May, Encounter for examination for admission to [facility] Z02.2 ; Toxoplasmosis B58.9 ; Seizures R56.9 ; Major depressive disorder, recurrent, moderate F33.1 ; Degenerative brain disorder G31.9 and Unsteady gait R26.81 [facility] [id number] [place] [address] 23539- 2855 May, [facility] [id number] [place] [address] 91719- 6808 May, Mood disorder F39 [facility] [id number] [place] [address] 56100- 9356 May, [facility] [id number] [place] [address] 19351- 6621 Apr, [facility] [id number] [place] [address] 68199- 9877 Mar, [facility] [id number] [place] [address] 87882- 8859 Mar, [facility] [id number] [place] [address] 28155- 2205 Mar, [facility] [id number] [place] [address] 71070- 3059 Mar, [facility] [id number] [place] [address] 95135- 7409 Mar, [facility] [id number] [place] [address] 36472- 6302 Mar, Stress incontinence of urine N39.3 [facility] [id number] [place] [address] [id number] Mar, [facility] [id number] [place] [address] 55729- 8804 Feb, [facility] [id number] [place] [address] 03874- 9022 Feb, [facility] [id number] [place] [address] 73638- 4817 Feb, [facility] [id number] [place] [address] 03944- 2956 Feb, [facility] [address] [facility] [id number] [place] [address]- 3256 Feb, [facility] [address] [facility] [id number] [place] [address]- 8124 Feb, [facility] [address] [facility] [id number] [place] [address]- 0895 Feb, [facility] [address] [facility] [id number] [address]- 4096 Jan, [facility] [address] [facility] [id number] [place] [address]- 7704 Jan, [facility] [address] [facility] [id number] [address]- 3037 Jan, [facility] [address] [facility] [id number] [place] [address]- 2893 Jan, [facility] [address] [facility] [id number] [address]- 8449 Jan, [facility] [address] [facility] [id number] [address]- 7065 Jan, [facility] [id number] [address]- 1240 Jan, [facility] [address] [address]- 2770 Jan, General weakness R53.1 and Dementia with behavioral disturbance, unspecified dementia type F03.91 [facility] [address] [facility] [id number] [address]- 3161 December, [facility] [address] [facility] [id number] [address]- 8286 December, Other chronic pain G89.29 [facility] [address] [facility] [id number] [address]- 0403 December, [facility] [id number] [place] [address] 10365- 6726 December, Unsteady gait R26.81 ; Generalized weakness R53.1 ; Unspecified mental disorder due to known physiological condition F09 and Generalized headaches R51 [facility] [id number] [place] [address] 39800- 2387 December, [facility] [id number] [place] [address] 85895- 3686 Nov, Anxiety F41.9 [facility] [address] 67994- 3610 Nov, Mood disorder F39 [address] [address] [address]11- 3844 Oct, [address] [place] [id number] [place] [address] 45833- 8478 Oct, Anxiety F41.9 [address] [id number] [place] [address] 59222- 7977 Oct, Other chronic pain G89.29 [address] [id number] [place] [address] 92441- 4153 Sep, Other chronic pain G89.29 ; Pain in left knee M25.562 ; Pain in right knee M25.561 and Anxiety F41.9 [address] [place] [id number] [place] [address] 78528- 7223 Sep, MDD (major depressive disorder), recurrent episode, mild F33.0 ; Degenerative brain disorder G31.9 and Other half-way (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 Z79.899 [address] [id number] [place] [address] 89692- 9795 Sep, [address] [place] [id number] [place] [address] 44284- 8461 Sep, [address] [place] [id number] [place] [address] 75359- 0687 Sep, Mood disorder F39 ; Pain of left leg M79.605 and Pain in right leg M79.604 [facility] [id number] [place] [address] 64242 2546 14 Sep, 2016 Seizures R56.9 [facility] [id number] [place] [address] 30875 2546 08 Sep, 2016 [facility] [id number] [place] [address] 53918 2546 Sep, [facility] [id number] [place] [address] 50096 2546 Sep, [facility] [id number] [place] [address] 18764 2546 Aug, Bronchitis J40 [facility] [id number] [place] [address] 92647 2546 Aug, Bronchitis J40 and Encounter for drug screening Z02.83 [facility] [id number] [place] [address] 31445 2546 Aug, [facility] [id number] [place] [address] 64811 2546 Aug, Seizures R56.9 [facility] [id number] [place] [address] 36970 2546 Aug, Seizures R56.9 [facility] [id number] [place] [address] 41022 2546 Aug, Major depressive disorder, recurrent, moderate F33.1 and Seizures R56.9 [facility] [address] [address] 2546 Aug, [facility] [id number] [place] [address] 09330 2546 Aug, [facility] [id number] [place] [address] 69447 2546 Aug, Major depressive disorder, recurrent, moderate F33.1 and Seizures R56.9 [address] [address] [address]- 3729 Jul, Major depressive disorder, recurrent, moderate F33.1 and Degenerative brain disorder G31.9 [place] [address] [address]- 6841 Jul, Seizures R56.9 [place] [id number] [place] [address] 74924- 3798 Apr, [address] [id number] [place] [address] 13571- 1644 Apr, Major depressive disorder, recurrent, moderate F33.1 ; Anxiety F41.9 and Degenerative brain disorder G31.9 [place] [address] [place] [address] 06235- 7410 Apr, Mood disorder F39 [place] [id number] [place] [address] 74482- 5011 Apr, Arthritis M19.90 [place] [id number] [place] [address] 76551- 2528 Mar, Arthritis M19.90 ; Degenerative brain disorder G31.9 and Nonintractable generalized idiopathic epilepsy without status epilepticus G40.309 [place] [address] [address]- 6826 Feb, IMMUNIZATIONS No Known Immunizations SOCIAL HISTORY [...] Surgical History 27 brain surgeries including shunt, [place] Surgical History neck fusion 09/26, 09/28 Surgical History right hand surgery Hospitalization History surgeries Hospitalization History seizures 12/2015
--- OUTSIDE RECORDS SUMMARY | 2018-07-01 14:32 | XMS REPORT ---
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 Name Role Phone ESTEPHANIA IVAN Unavailable PROBLEMS Type Condition ICD9-CM Code IRT42-HT Code Onset Dates Condition Status SNOMED Code Problem Unsteady gait R26.81 Active 58052738 Problem Dementia with behavioral disturbance, unspecified dementia type F03.91 Active 7647663313577 Problem Unspecified mental disorder due to known physiological condition F09 Active 277424856 Problem Mood disorder F39 Active 41229910 Problem Other chronic pain G89.29 Active 76383987 Problem Anxiety F41.9 Active 16490643 Problem PTSD (post-traumatic stress disorder) F43.10 Active 54541436 Problem Depressive disorder, not elsewhere classified F32.9 Active 89728307 Problem Degenerative brain disorder G31.9 Active 14758099 Problem Major depressive disorder, recurrent, moderate F33.1 Active 50211442 Problem Other chronic pain G89.29 Active 32828937 Problem Sleep apnea, unspecified type G47.30 Active 57438721 ALLERGIES No Information ENCOUNTERS Encounter Location Date Diagnosis [facility] [address] [address] Feb, [facility] [id number] [place] [address] 17102- 9551 Jan, [facility] [id number] [place] [address] 78701- 3430 Jan, [facility] [id number] [place] [address] 47876- 8982 Jan, [facility] [address] [place] [address] 78019- 1129 December, Other chronic pain G89.29 [facility] [address] [place] [id number] December, Pain in left knee M25.562 ; Pain in right leg M79.604 ; Other chronic pain G89.29 ; Localized edema R60.0 and PTSD (post-traumatic stress disorder) F43.10 [facility] [address], [place] [address] December, [facility] [id number] [place] [address] 44906- 4518 December, PTSD (post-traumatic stress disorder) F43.10 [facility] [id number] [place] [address] 13577- 3026 December, [facility] [id number] [place] [address] 85314- 3231 December, [facility] [id number] [place] [address] 68960- 1247 December, Depressive disorder, not elsewhere classified F32.9 and Cognitive change R41.89 [facility] [address], [place] [address] Nov, Major depressive disorder, recurrent, moderate F33.1 [facility] [address] [place] [address] 16714- 4744 Nov, [facility] [address], [place] [address] Nov, [facility] [id number] [place] [address] 82234- 3927 Nov, [facility] [address] [place] [address] 09443- 8094 Nov, [facility] [id number] [place] [address] 60101- 2541 Nov, Mood disorder F39 [facility] [address] [place] [address] 05597- 7880 Nov, Depressive disorder, not elsewhere classified F32.9 and Cognitive change R41.89 [facility] [address], [place] [address] 1626 Nov, [facility] [address], [place] [address] 2546 Nov, [facility] [address] [place] [id number] Oct, Tear of skin of plantar aspect of right foot, initial encounter S91.311A [facility] [address], [place] [address] 1196 Oct, [facility] [address] [place] [address] 14767- 4476 Oct, [facility] [id number] [place] [address] [id number] Oct, [facility] [id number] [place] [address] [id number] Oct, [facility] [id number] [place] [address] [id number] Sep, [facility] [id number] [place] [address] [id number] Sep, [facility] [id number] [id number] Sep, [facility] [id number] [place] [address] [id number] Sep, [facility] [address], [place] [address] 2546 Sep, [facility] [id number] [address] 2086 Sep, Other chronic pain G89.29 and Pain in left knee M25.562 [facility] [id number] [address] 4226 Sep, [facility] [address] [place] [id number] Sep, Plantar fasciitis of left foot M72.2 and Pain in right knee M25.561 [facility] [address] [id number] [id number] Aug, [facility] [address] [facility] [id number], [place] [address] 9020 Aug, [facility] [address] [facility] [id number] [id number] [address] Aug, [facility] [address] [facility] [id number] [address] Aug, Chronic daily headache R51 [facility] [id number], [place] [address] 1786 Aug, [facility] [address] [place] [id number] Aug, Edema, unspecified type R60.9 ; Weight gain R63.5 and Sleep apnea, unspecified type G47.30 [facility] [address] [place] [id number] Jul, Acute pain of left knee M25.562 and Plantar fasciitis of left foot M72.2 [facility] [id number], [place] [address]186 Jul, [facility] [address] [place] [id number] Jul, Plantar fasciitis of left foot M72.2 and Chronic daily headache R51 [facility] [address] [id number] [id number] Jul, [facility] [address] [id number] [id number] Jun, [facility] [address] [facility] [id number], [place] [address] 0088 Jun, [facility] [address] [id number] [id number] Jun, [facility] [id number] [id number] Jun, [facility] [id number] [id number] May, [facility] [id number] [id number] May, [facility] [address], [place] [address] 5090 May, Stress incontinence of urine N39.3 [facility] [id number] [id number] May, [facility] [address] [place] [id number] May, Encounter for examination for admission to prison Z02.2 ; Toxoplasmosis B58.9 ; Seizures R56.9 ; Major depressive disorder, recurrent, moderate F33.1 ; Degenerative brain disorder G31.9 and Unsteady gait R26.81 [facility] [id number] [place] [address] 06123- 7179 May, [facility] [id number] [place] [address] 88273- 7056 May, Mood disorder F39 [facility] [id number] [place] [address] 56480- 8077 May, [facility] [address], [place] [address] 8663 Apr, [facility] [address], [place] [address] 8239 Mar, [facility] [address], [place] [address] 1670 Mar, [facility] [id number] [place] [address] 50836- 5453 Mar, [facility] [address], [place] [address]- 5722 Mar, [facility] [id number] [address] 2886 Mar, [facility] [place] [facility] [address] [id number] [place] [address]- 1510 Mar, Stress incontinence of urine N39.3 [facility] [address] [id number] [place] [id number] Mar, [facility] [place] [facility] [address] [id number] [place] [address]- 8932 Feb, [facility] [place] [facility] [address] [id number] [place] [address]- 6395 Feb, [facility] [place] [facility] [address] [id number] [place] [address]- 9499 Feb, [facility] [place] [facility] [address] [id number] [place] [address]- 4468 Feb, [facility] [place] [facility] [address] [id number] [place] [address]- 3165 Feb, [facility] [place] [facility] [address] [id number] [place] [address]- 9676 Feb, [facility] [place] [facility] [address] [id number] [place] [address]- 4588 Feb, [facility] [place] [facility] [address] [id number] [place] [address]- 5336 Jan, [facility] [place] [facility] [address] [id number] [place] [address]- 5364 Jan, [facility] [place] [facility] [address] [id number] [place] [address]- 2078 Jan, [facility] [place] [facility] [address] [id number] [place] [address]- 2897 Jan, [facility] [place] [facility] [address] [id number] [place] [address]- 4566 Jan, [facility] [place] [facility] [address] [id number] [place] [address]- 4452 Jan, [facility] [address], [place] [address]- 1443 Jan, [facility] [id number] [place] [address] 38140- 8701 Jan, General weakness R53.1 and Dementia with behavioral disturbance, unspecified dementia type F03.91 [facility] [id number] [place] [address] 61349- 3243 December, [facility] [id number] [place] [address] 69368- 6829 December, Other chronic pain G89.29 [facility] [id number] [place] [address] 25920- 7455 December, [facility] [id number] [place] [address] 63666- 0027 December, Unsteady gait R26.81 ; Generalized weakness R53.1 ; Unspecified mental disorder due to known physiological condition F09 and Generalized headaches R51 [facility] [address], [place] [address]- 8932 December, [facility] [id number] [place] [address] 90392- 4526 Nov, Anxiety F41.9 [facility] [address] [place] [address] 34892- 2822 Nov, Mood disorder F39 [facility] [address] [place] [address] 04060- 3531 Oct, [facility] [address], [place] [address]- 6321 Oct, Anxiety F41.9 [facility] [id number] [place] [address] 79991- 8089 Oct, Other chronic pain G89.29 [facility] [address] [place] [address] 06330- 7570 Sep, Other chronic pain G89.29 ; Pain in left knee M25.562 ; Pain in right knee M25.561 and Anxiety F41.9 [facility] [address] [address]- [address]40 Sep, MDD (major depressive disorder), recurrent episode, mild F33.0 ; Degenerative brain disorder G31.9 and Other jail (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 Z79.899 [facility] [address] 25858- 8218 Sep, [facility] [address] 90855- 4218 Sep, [facility] [address] 33497- 3716 Sep, Mood disorder F39 ; Pain of left leg M79.605 and Pain in right leg M79.604 [facility] [address] [address]- [address] 14 Sep, 2016 Seizures R56.9 [facility] [id number] [place] [address] 51131- 3870 Sep, [facility] [id number] [place] [address] 42894- 8820 Sep, [facility] [id number] [place] [address] 85933- 3888 Sep, [facility] [address] 60563- 9776 Aug, Bronchitis J40 [facility] [address] 78945- 2662 Aug, Bronchitis J40 and Encounter for drug screening Z02.83 [facility] [id number] [place] [address] 32111- 9426 Aug, [facility] [address] 91490- 1059 Aug, Seizures R56.9 [facility] [address], [place] [address]- 6031 Aug, Seizures R56.9 [facility] [id number] [place] [address] 42208- 3596 Aug, Major depressive disorder, recurrent, moderate F33.1 and Seizures R56.9 [facility] [id number] [place] [address] 07863- 5313 Aug, [facility] [id number] [place] [address] 02915- 1375 Aug, [facility] [id number] [place] [address] 00656- 1647 Aug, Major depressive disorder, recurrent, moderate F33.1 and Seizures R56.9 [facility] [id number] [place] [address] 80868- 6536 Jul, Major depressive disorder, recurrent, moderate F33.1 and Degenerative brain disorder G31.9 [facility] [address] [place] [address] 40275- 1875 Jul, Seizures R56.9 [facility] [id number] [place] [address] 37960- 8186 Apr, [facility] [address] [place] [address] 85319- 2186 Apr, Major depressive disorder, recurrent, moderate F33.1 ; Anxiety F41.9 and Degenerative brain disorder G31.9 [facility] [address], [place] [address]- 4363 Apr, Mood disorder F39 [facility] [id number] [place] [address] 81840- 6491 Apr, Arthritis M19.90 [facility] [address] [place] [address] 07152- 6176 Mar, Arthritis M19.90 ; Degenerative brain disorder G31.9 and Nonintractable generalized idiopathic epilepsy without status epilepticus G40.309 [facility] [address] [facility] [id number] [place] [address]- 7264 Feb, IMMUNIZATIONS No Known Immunizations SOCIAL HISTORY Never Assessed REASON FOR VISIT increased pain PLAN OF CARE VITAL SIGNS MEDICATIONS Medication Instructions Dosage Frequency Start Date End Date Duration Status Tramadol HCl 50 mg Orally 2 times a day 1 tablet 12h Jul, Aug, 30 days Active RESULTS No Results PROCEDURES No Known procedures INSTRUCTIONS MEDICATIONS ADMINISTERED No Known Medications MEDICAL (GENERAL) HISTORY Type Description Date Medical History Toxoplasmosis Medical History migraine Medical History dementia Medical History depression Medical History alzheimers disease Medical History epilepsy Medical History COPD Surgical History cholecystectomy Surgical History appendectomy Surgical History 27 brain surgeries including shunt, [place] Surgical History neck fusion 09/26, 09/28 Surgical History right hand surgery Hospitalization History surgeries Hospitalization History seizures 12/2015
--- OUTSIDE RECORDS SUMMARY | 2018-07-01 14:32 | XMS REPORT ---
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 Name Role Phone JENIFER BRAY Unavailable PROBLEMS Type Condition ICD9-CM Code BPX16-JE Code Onset Dates Condition Status SNOMED Code Problem Other chronic pain G89.29 Active 18780334 Problem Unspecified mental disorder due to known physiological condition F09 Active 836881014 Problem Anxiety F41.9 Active 80048418 Problem Mood disorder F39 Active 13516218 Problem Other chronic pain G89.29 Active 84589466 Problem Sleep apnea, unspecified type G47.30 Active 30962236 Problem Dementia with behavioral disturbance, unspecified dementia type F03.91 Active 2966069432403 Problem Unsteady gait R26.81 Active 55893782 Problem Degenerative brain disorder G31.9 Active 93566291 Problem Major depressive disorder, recurrent, moderate F33.1 Active 68691747 ALLERGIES No Information ENCOUNTERS [facility]counter [facility] [address] [id number] Oct, Tear of skin of plantar aspect of right foot, initial encounter S91.311A [facility] [id number] [address] Oct, [facility] [id number] [address] Oct, [facility] [address] [id number] [id number] Oct, [facility] [address] [id number] [id number] Oct, [facility] [address] [id number] [id number] Sep, [facility] [address] [id number] [id number] 14 Sep, 2017 [facility] [id number] [id number] Sep, [facility] [id number] [id number] Sep, [facility] [id number] [address] Sep, [facility] [address], [place] [address] Sep, Other chronic pain G89.29 and Pain in left knee M25.562 [facility] [address], [place] [address] Sep, [facility] [address] [place] [id number] Sep, Plantar fasciitis of left foot M72.2 and Pain in right knee M25.561 [facility] [id number] [id number] Aug, [facility] [id number] [id number] Aug, [facility] [address] [address] Aug, [facility] [id number] [id number] Aug, Chronic daily headache R51 [facility] [id number] [address] Aug, [facility] [address] [id number] Aug, Edema, unspecified type R60.9 ; Weight gain R63.5 and Sleep apnea, unspecified type G47.30 [facility] [address] [id number] Jul, Acute pain of left knee M25.562 and Plantar fasciitis of left foot M72.2 [facility] [address] [id number] [address] Jul, [facility] [address] [id number] Jul, Plantar fasciitis of left foot M72.2 and Chronic daily headache R51 [facility] [id number] [id number] Jul, [facility] [address] [id number] [id number] Jun, [facility] [address]005[address], [place] [address] Jun, [facility] [id number] [place] [id number] Jun, [facility] [id number][place] [id number] Jun, [facility] [id number] [place] [id number] May, [facility] [address] [id number] [id number] May, [facility] [address]65100[place], [place] [address] May, Stress incontinence of urine N39.3 [facility] [id number] [id number] May, [address] [id number] May, En[facility] Z02.2 ; Toxoplasmosis B58.9 ; Seizures R56.9 ; Major depressive disorder, recurrent, moderate F33.1 ; Degenerative brain disorder G31.9 and Unsteady gait R26.81 [facility] [address] [address] May, [facility] [id number] [address] May, Mood disorder F39 [facility] [place] [facility] [address] [id number] [place] [address] May, [facility] [place] [facility] [address] [id number] [place] [address] Apr, [facility] [place] [facility] [address] [id number] [place] [address] Mar, [facility] [place] [facility] [id number] [place] [address], [place] [address] Mar, [facility] [place] [facility] [address] [id number] [place] [address] Mar, [facility] [place] [facility] [id number] [place] [address], [place] [address] Mar, [facility] [place] [facility] [address] [id number] [place] [address] Mar, [facility] [place] [facility] [id number] [place] [address] Mar, Stress incontinence of urine N39.3 [facility] [id number] [place] [id number] Mar, [facility] [place] [facility] [address] [id number] [address] Feb, [facility] [place] [facility] [address] [id number], [place] [address] Feb, [facility] [place] [facility] [address] [id number][place] [address] Feb, [facility] [place] [facility] [address] [id number], [place] [address] Feb, [facility] [place] [facility] [address] [facility] [id number][place] [address] Feb, [facility] [place] [facility] [id number] [place] [address] Feb, [facility] [place] [facility] [address]00565[address], [place] [address] Feb, [facility] [address]00565100[place], [place] [address] Jan, [facility] [address]00565100[place], [place] [address] Jan, [facility] [address]00565100[place], [place] [address] Jan, [facility] [address]00565[address], [place] [address] Jan, [facility] [address]00565100[place], [place] [address] Jan, [facility] [address]00565100[place], [place] [address] Jan, [facility] [address]00565100[place], [place] [address] Jan, [facility] [address]00565[address], [place] [address] Jan, General weakness R53.1 and Dementia with behavioral disturbance, unspecified dementia type F03.91 [facility] [address]00565100[place], [place] [address] December, [facility] [address]00565100[place], [place] [address] December, Other chronic pain G89.29 [facility] [address]005[address], [place] [address] December, [facility] [address]00565100[place], [place] [address] December, Unsteady gait R26.81 ; Generalized weakness R53.1 ; Unspecified mental disorder due to known physiological condition F09 and Generalized headaches R51 [facility] [address]00565[address], [place] [address] December, [facility] [address]00565100[place], [place] [address] Nov, Anxiety F41.9 [facility] [id number] [place] [address] Nov, Mood disorder F39 [facility] [id number] [place] [address] Oct, [facility] [id number] [place] [address] 5[address] Oct, Anxiety F41.9 [facility] [id number] [place] [address]- 8[address] Oct, Other chronic pain G89.29 [facility] [id number] [place] [address] 8310 Sep, Other chronic pain G89.29 ; Pain in left knee M25.562 ; Pain in right knee M25.561 and Anxiety F41.9 [facility] [id number] [place] [address] Sep, MDD (major depressive disorder), recurrent episode, mild F33.0 ; Degenerative brain disorder G31.9 and 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 [facility] [address] [place] [address]- 1124 Sep, [facility] [address] [id number], [place] [address] 7[address] Sep, [facility] [address] [place] [address]23[address]- 5489 Sep, Mood disorder F39 ; Pain of left leg M79.605 and Pain in right leg M79.604 [facility] [address], [place] [address] 14 Sep, 2016 Seizures R56.9 [facility] [id number] [place] [address]55[address]- 2034 08 Sep, 2016 [facility] [address] [place] [address] 687[address]- 8966 Sep, [facility] [id number] [place] [address] 8[address]- 0386 Sep, [facility] [id number] [place] [address]- 5266 Aug, Bronchitis J40 [facility] [id number] [place] [address]- 1812 Aug, Bronchitis J40 and Encounter for drug screening Z02.83 [facility] [id number] [place] [address]- 5716 Aug, [facility] [id number] [place] [address]- 3857 Aug, Seizures R56.9 [facility] [id number] [place] [address] 92552- 5265 Aug, Seizures R56.9 [facility] [id number] [place] [address] 72[address]- 5714 Aug, Major depressive disorder, recurrent, moderate F33.1 and Seizures R56.9 [facility] [address] [place] [address]- 3173 Aug, [facility] [address] [place] [address] 334[address]- 4671 Aug, [facility] [address] [place] [address] 47521- 6621 Aug, Major depressive disorder, recurrent, moderate F33.1 and Seizures R56.9 [facility] [address] [place] [address] 491346- 8823 Jul, Major depressive disorder, recurrent, moderate F33.1 and Degenerative brain disorder G31.9 [facility] [address] [place] [address]74- 7160 Jul, Seizures R56.9 [id number] [address] Apr, [address], [place] [address] Apr, Major depressive disorder, recurrent, moderate F33.1 ; Anxiety F41.9 and Degenerative brain disorder G31.9 [address] [place] [address] [place] [address] 84670- 0862 Apr, Mood disorder F39 [address] [place] [address] 47679- 5673 Apr, Arthritis M19.90 [address] [place] [address] [place] [address] 93978- 5255 Mar, Arthritis M19.90 ; Degenerative brain disorder G31.9 and Nonintractable generalized idiopathic epilepsy without status epilepticus G40.309 [address] [place] [id number], [place] [address] Feb, IMMUNIZATIONS No Known Immunizations SOCIAL HISTORY Never Assessed REASON FOR VISIT Controlled Med Refill 03/08/17 PLAN OF CARE VITAL SIGNS MEDICATIONS Medication Instructions Dosage Frequency Start Date End Date Duration Status [place] 10-325 MG Orally every 6 hrs 1 tablet as needed 6h Feb, 28 days Active RESULTS No Results PROCEDURES No Known procedures INSTRUCTIONS MEDICATIONS ADMINISTERED No Known Medications MEDICAL (GENERAL) HISTORY Type Description Date Medical History Toxoplasmosis Medical History migraine Medical History dementia Medical History depression Medical History alzheimers disease Medical History epilepsy Medical History COPD Surgical History cholecystectomy Surgical History appendectomy Surgical History 27 brain surgeries including shunt, [place] Surgical History neck fusion 09/26, 09/28 Surgical History right hand surgery Hospitalization History surgeries Hospitalization History seizures 12/2015
--- OUTSIDE RECORDS SUMMARY | 2018-07-01 14:33 | XMS REPORT ---
Author Author JENIFER BRAY Organization [facility] Address [address] [place] [address] Care Team Providers Care State Tested Nursing Assistant Name Role Phone KATARINA JENIFER Unavailable PROBLEMS Type Condition ICD9-CM Code [id number] Code Onset Dates Condition Status SNOMED Code Problem Anxiety F41.9 Active 17120386 Problem Unsteady gait R26.81 Active 21411610 Problem Unspecified mental disorder due to known physiological condition F09 Active 853063641 Problem Mood disorder F39 Active 38399052 Problem Other chronic pain G89.29 Active 20671482 Problem Depressive disorder, not elsewhere classified F32.9 Active 71340141 Problem Other chronic pain G89.29 Active 47607178 Problem Major depressive disorder, recurrent, moderate F33.1 Active 50046452 Problem Dementia with behavioral disturbance, unspecified dementia type F03.91 Active 2367449511996 Problem Sleep apnea, unspecified type G47.30 Active 31528354 Problem Degenerative brain disorder G31.9 Active 08527858 ALLERGIES Substance Reaction Event Type Date Status Morphine Sulfate Unknown Drug Allergy Mar, Active ENCOUNTERS Encounter Location Date Diagnosis [facility] [address] [address] December, [facility] [address], [place] [address] Nov, [facility] [address] [place] [address] 60419- 5242 Nov, [facility] [id number] [place] [address] 77952- 1816 Nov, [facility] [address] [place] [address] 61515- 4731 Nov, [facility] [id number] [place] [address] 40070- 3005 Nov, Mood disorder F39 [facility] [id number] [address] Nov, Depressive disorder, not elsewhere classified F32.9 and Cognitive change R41.89 [facility] [address] [address] Nov, [facility] [address] [place] [address] 23889- 1632 Nov, [facility] [address] [id number] Oct, Tear of skin of plantar aspect of right foot, initial encounter S91.311A [facility] [address] [place] [address] 36722- 3584 Oct, [facility] [address], [place] [address] Oct, [facility] [id number] [place] [address] [id number] Oct, [facility] [id number] [place] [id number] Oct, [facility] [id number] [place] [address] [id number] Sep, [facility] [id number] [id number] 14 Sep, 2017 [facility] [id number] [place] [address] [id number] 13 Sep, 2017 [facility] [id number] [id number] 09 Sep, 2017 [facility] [address], [place] [address] 08 Sep, 2017 [facility] [id number], [place] [address] 06 Sep, 2017 Other chronic pain G89.29 and Pain in left knee M25.562 [facility] [id number], [place] [address] Sep, [facility] [address] [id number] Sep, Plantar fasciitis of left foot M72.2 and Pain in right knee M25.561 [facility] [id number] [id number] Aug, [facility] [address], [place] [address] Aug, [facility] [address] [address] Aug, [facility] [address], [place] [address] Aug, Chronic daily headache R51 [facility] [address], [place] [address] Aug, [facility] [address] [id number] Aug, Edema, unspecified type R60.9 ; Weight gain R63.5 and Sleep apnea, unspecified type G47.[address] [facility] [address] [id number] Jul, Acute pain of left knee M25.562 and Plantar fasciitis of left foot M72.2 [facility] [address], [place] [address] Jul, [facility] [address] [id number] Jul, Plantar fasciitis of left foot M72.2 and Chronic daily headache R51 [facility] [id number] [id number] Jul, [facility] [id number] [id number] Jun, [facility] [address], [place] [address] Jun, [facility] [id number] [id number] Jun, [facility] [address] [id number] [id number] Jun, [facility] [address] [id number] [id number] May, [facility] [id number] [place] [phone] May, [facility] [address], [place] [address] May, Stress incontinence of urine N39.3 [facility] [id number] [id number] May, [address] [id number] May, Encounter for examination for admission to fdc Z02.2 ; Toxoplasmosis B58.9 ; Seizures R56.9 ; Major depressive disorder, recurrent, moderate F33.1 ; Degenerative brain disorder G31.9 and Unsteady gait R26.81 [facility] [address] [place] [address] 59020- 3174 May, [facility] [address], [place] [address] May, Mood disorder F39 [facility] [address], [place] [address] May, [facility] [address] Apr, [facility] [id number] [place] [address] 588711- 6947 Mar, [facility] [address] [id number] [address] Mar, [facility] [address] [place] [address] [id number]- 1478 Mar, [facility] [place] [facility] [address] [id number] [place] [address] Mar, [facility] [place] [facility] [address] [id number] [place] [address]- 39[address] Mar, [facility] [place] [facility] [address] [id number] [place] [address]- [address]92 Mar, Stress incontinence of urine N39.3 [facility] [address] [id number] [place] [id number] Mar, [facility] [place] [facility] [address] [id number] [place] [address]- [address] Feb, [facility] [place] [facility] [address] [id number] [place] [address]- 8987 Feb, [facility] [place] [facility] [address] [id number] [place] [address]- 2476 Feb, [facility] [place] [facility] [address] [id number] [place] [address]- 6941 Feb, [facility] [place] [facility] [address] [id number] [place] [address]- 6135 Feb, [facility] [place] [facility] [address] [id number] [place] [address]- 6987 Feb, [facility] [place] [facility] [address] [id number] [place] [address]- [address]30 Feb, [facility] [place] [facility] [address] [id number] [place] [address]- 1153 Jan, [facility] [place] [facility] [address] [id number] [place] [address]- 0106 Jan, [facility] [place] [facility] [address] [id number] [place] [address]- 4271 Jan, [facility] [place] [facility] [address] [id number] [place] [address]- 7563 Jan, [facility] [place] [facility] [address], [place] [address] Jan, [facility] [address] [place] [address] 69306- 1330 Jan, [facility] [id number] [place] [address] 65121- 9244 Jan, [facility] [id number] [place] [address] 65426- 8899 Jan, General weakness R53.1 and Dementia with behavioral disturbance, unspecified dementia type F03.91 [facility] [id number] [place] [address] 83601- 8347 December, [facility] [id number] [place] [address] 25465- 9292 December, Other chronic pain G89.29 [facility] [id number] [place] [address] 98787- 9013 December, [facility] [id number] [place] [address] 77046- 2322 December, Unsteady gait R26.81 ; Generalized weakness R53.1 ; Unspecified mental disorder due to known physiological condition F09 and Generalized headaches R51 [facility] [address], [place] [address] December, [facility] [address] [place] [address] 74782- 7643 Nov, Anxiety F41.9 [facility] [address] [place] [address] 18476- 2639 Nov, Mood disorder F39 [facility] [id number] [place] [address] 06467- 7544 Oct, [facility] [address] [place] [address] 03500- 1555 Oct, Anxiety F41.9 [facility] [id number] [place] [address] 72918- 8065 Oct, Other chronic pain G89.29 [facility] [id number] [place] [address] 57889- 0882 Sep, Other chronic pain G89.29 ; Pain in left knee M25.562 ; Pain in right knee M25.561 and Anxiety F41.9 [facility] [address] [address]- [address] Sep, MDD (major depressive disorder), recurrent episode, mild F33.0 ; Degenerative brain disorder G31.9 and 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 [facility] [address] [address]- 4846 Sep, [facility] [address] 7[address]99- 3686 Sep, [facility] [address] [address]- 0932 Sep, Mood disorder F39 ; Pain of left leg M79.605 and Pain in right leg M79.604 [facility] [address] [address]51- 1186 14 Sep, 2016 Seizures R56.9 [facility] [id number] [place] [address] 36332- 7586 Sep, [facility] [address] 36245- 7608 Sep, [facility] [id number] [place] [address] 76804- 2546 Sep, [facility] [address] 14115- 0251 Aug, Bronchitis J40 [facility] [id number] [place] [address] 02048- 6500 Aug, Bronchitis J40 and Encounter for drug screening Z02.83 [facility] [address], [place] [address] 3315 Aug, [facility] [id number] [place] [address] 96702- 5948 Aug, Seizures R56.9 [facility] [id number] [place] [address] 55591- 7405 Aug, Seizures R56.9 [facility] [id number] [place] [address] 81338- 6367 Aug, Major depressive disorder, recurrent, moderate F33.1 and Seizures R56.9 [facility] [id number] [place] [address] 93423- 0516 Aug, [facility] [id number] [place] [address] 13178- 1887 Aug, [facility] [id number] [place] [address] 29452- 1559 Aug, Major depressive disorder, recurrent, moderate F33.1 and Seizures R56.9 [facility] [address] [place] [address] 23131- 3972 Jul, Major depressive disorder, recurrent, moderate F33.1 and Degenerative brain disorder G31.9 [facility] [address] [place] [address] 49009- 9725 Jul, Seizures R56.9 [facility] [address] [place] [address] 34375- 2310 Apr, [facility] [address] [place] [address] 38050- 1851 Apr, Major depressive disorder, recurrent, moderate F33.1 ; Anxiety F41.9 and Degenerative brain disorder G31.9 [facility] [address], [place] [address]- 1774 Apr, Mood disorder F39 [facility] [id number] [place] [address] 73540- 6669 Apr, Arthritis M19.90 [facility] [address] [facility] [id number] [place] [address]- 4[address] Mar, Arthritis M19.90 ; Degenerative brain disorder G31.9 and Nonintractable generalized idiopathic epilepsy without status epilepticus G40.309 [facility] [address] [facility] [id number] [place] [address] Feb, IMMUNIZATIONS No Known Immunizations SOCIAL HISTORY Never Assessed REASON FOR VISIT Pain management (chronic) -- melody álvarez PLAN OF CARE VITAL SIGNS Height 65 in 2017-04-08 Weight 140.0 lbs 2017-04-08 Temperature 98.0 degrees Fahrenheit 2017-04-08 Heart Rate 80 bpm 2017-04-08 Respiratory Rate 20 2017-04-08 BMI 23.29 kg/m2 2017-04-08 Blood pressure systolic 126 mmHg 2017-04-08 Blood pressure diastolic 90 mmHg 2017-04-08 MEDICATIONS Medication Instructions Dosage Frequency Start Date End Date Duration Status Memantine HCl 5 mg Orally Once a day 1 tablet 24h Sep, 30 day(s ) Active Venlafaxine HCl ER 225 MG Orally Once a day 1 tablet with food 24h Sep, Active Depakote 500 mg Orally 2 times a day 3 capsules 12h Active Lexapro 20 mg Orally Once a day 1 tablet 24h Active Depend Easy Fit Undergarments 1 as directed 8h Mar, Active [place] 10-325 MG Orally every 6 hrs 1 tablet as needed 6h Feb, 28 days Active Amitriptyline HCl 25 MG Orally Once a day 1 tablet at bedtime 24h Apr, Active Ditropan XL 5 mg Orally Once a day 1 tablet 24h Mar, Jun, 30 day(s) Active Wheelchair 1 as directed December, Active Keppra 500 MG Orally 2 times a day 3 capsules 12h Active Ondansetron 4 MG Orally every 8 hrs PRN 1 tablet on the tongue and allow to dissolve Aug, Active Levetiracetam 500 MG TAKE 3 TABLETS BY MOUTH TWICE DAILY 30 Active Omeprazole 20 mg Orally Once a day 1 capsules 24h Active Advair Diskus 500-50 MCG/DOSE Inhalation Twice a day 1 puff 12h Sep, Active Clonazepam 1 MG Orally Twice a day 1 tablet 12h 28 Sep, 2016 28 days Active ProAir HFA 108 (90 Base) MCG/ACT Inhalation every 4 hrs 2 puffs as needed for cough or short of breath 4h 30 days Active Naproxen 500 MG Orally every 12 hrs 1 tablet as needed 12h 30 Active RESULTS No Results PROCEDURES No Known procedures INSTRUCTIONS MEDICATIONS ADMINISTERED No Known Medications MEDICAL (GENERAL) HISTORY Type Description Date Medical History Toxoplasmosis Medical History migraine Medical History dementia Medical History depression Medical History alzheimers disease Medical History epilepsy Medical History COPD Surgical History cholecystectomy Surgical History appendectomy Surgical History 27 brain surgeries including shunt, [place] Surgical History neck fusion 09/26, 09/28 Surgical History right hand surgery Hospitalization History surgeries Hospitalization History seizures 12/2015
--- OUTSIDE RECORDS SUMMARY | 2018-07-01 14:33 | XMS REPORT ---
Author Author JENIFER BRAY Organization [facility] Address [address] [place] [address] Care Team Providers Care Orchid Transplanter Name Role Phone JENIFER BRAY Unavailable PROBLEMS Type Condition ICD9-CM Code [id number] Code Onset Dates Condition Status SNOMED Code Problem Dementia with behavioral disturbance, unspecified dementia type F03.91 Active 2967279268502 Problem Unsteady gait R26.81 Active 09676133 Problem Other chronic pain G89.29 Active 48096859 Problem Mood disorder F39 Active 94931262 Problem Unspecified mental disorder due to known physiological condition F09 Active 588516797 Problem Anxiety F41.9 Active 82489461 ALLERGIES No Information SOCIAL HISTORY Never Assessed PLAN OF CARE VITAL SIGNS MEDICATIONS Medication Instructions Dosage Frequency Start Date End Date Duration Status [place] 10-325 MG Orally every 6 hrs 1 tablet as needed 6h Oct, Active RESULTS No Results PROCEDURES No Known procedures IMMUNIZATIONS No Known Immunizations MEDICAL (GENERAL) HISTORY Type Description Date Medical History Toxoplasmosis Medical History migraine Medical History dementia Medical History depression Medical History alzheimers disease Medical History epilepsy Surgical History cholecystectomy Surgical History appendectomy Surgical History 27 brain surgeries including shunt, [place] Surgical History neck fusion 09/26, 09/28 Surgical History right hand surgery Hospitalization History surgeries Hospitalization History seizures 12/2015
[2018-07-01] MEDS ORDERED: FURO-124 PO (14:54)
[2018-07-01] MEDS ORDERED: OXYC1TAB16 PO (14:54)
[2018-07-01 15:17] LABS: BASOPHILS % (AUTO) 0 % (0-10); EOSINOPHILS # (AUTO) 0.2 10^3/uL (0.0-0.3); EOSINOPHILS % (AUTO) 2 % (0-10); HEMATOCRIT 42 % (40-54); HEMOGLOBIN 14.6 G/DL (13.3-17.7); LYMPHOCYTES # (AUTO) 2.3 X 10^3 (1.0-4.0); LYMPHOCYTES % (AUTO) 29 % (12-44); MEAN CORPUSCULAR HEMOGLOBIN 31 PG (25-34); MEAN CORPUSCULAR HGB CONC 35 G/DL (32-36); MEAN CORPUSCULAR VOLUME 90 FL (80-99); MEAN PLATELET VOLUME 9.6 FL (7.4-10.4); MONOCYTES # (AUTO) 1.3 X 10^3 (0.0-1.0); MONOCYTES % (AUTO) 16 % (0-12); NEUTROPHILS # (AUTO) 4.1 X 10^3 (1.8-7.8); NEUTROPHILS % (AUTO) 53 % (42-75); PLATELET COUNT 240 10^3/uL (130-400); RED BLOOD COUNT 4.71 10^6/uL (4.35-5.85); RED CELL DISTRIBUTION WIDTH 14.6 % (10.0-14.5); WHITE BLOOD COUNT 7.9 10^3/uL (4.3-11.0)
[2018-07-01 15:22] LABS: ALANINE AMINOTRANSFERASE 26 U/L (0-55); ALBUMIN 4.3 GM/DL (3.2-4.5); ALKALINE PHOSPHATASE 51 U/L (40-136); BILIRUBIN,TOTAL 0.4 MG/DL (0.1-1.0); BUN/CREATININE RATIO 18; CARBON DIOXIDE 24 MMOL/L (21-32); CHLORIDE 101 MMOL/L (98-107); CREATININE SERUM 0.99 MG/DL (0.60-1.30); GFR ESTIMATED > 60; GLUCOSE 100 MG/DL (70-105); POTASSIUM 4.5 MMOL/L (3.6-5.0); SODIUM 138 MMOL/L (135-145); TOTAL PROTEIN 7.5 GM/DL (6.4-8.2)
[2018-07-01] MEDS ORDERED: fentaNYL INJECTION 100 MCG/2 ML AMP IVP ONE (15:45)
--- NOTE | 2018-07-01 16:01 | Diagnostic Imaging Report ---
INDICATION: Fell off toilet. COMPARISON: None available. TECHNIQUE: Three radiographs of the pelvis and left hip dated 07/01/2018. FINDINGS: Shunt catheter is identified overlying the abdomen. The sacroiliac joints are intact. No acute fracture or dislocation. No destructive osseous process. The left femoral head maintains its normal shape and contour. IMPRESSION: No acute osseous abnormality with minimal degenerative changes. Catheter seen overlying the abdomen. Dictated by: Dictated on workstation # [id number]
--- NOTE | 2018-07-01 16:01 | Diagnostic Imaging Report ---
PROCEDURE: CT head and CT cervical spine without contrast. TECHNIQUE: Multiple contiguous axial images were obtained through the brain and cervical spine without the use of intravenous contrast. Sagittal and coronal reformations through the cervical spine were then performed. INDICATION: Fell, head and neck pain. CT HEAD: The previous CT head exam performed on 06/25/2018 noted a ventricular peritoneal shunt in place on the right with the tip of the shunt in the midportion of the left lateral ventricle. On this exam, the shunt tip is again evident and does not seem to have changed significantly. The ventricles, themselves, are stable in size. There is no mass, shift of the midline or hemorrhage to suggest an acute intracranial abnormality. The normal tentorial blush is noted. The diffuse areas of encephalomalacia involving the periventricular white matter and right temporal lobe, seen on the prior study are again identified and no different. Cortical atrophy is also again seen. The bone windows show no sign of a skull fracture or for a destructive lesion. The orbits are symmetrical and within normal limits. The sinuses are generally clear. IMPRESSION: 1. There is no evidence for an acute intracranial abnormality. 2. The ventricular peritoneal shunt on the right, seen previously, appears stable in position. CT CERVICAL SPINE: As noted on the recent CT cervical spine exam of 06/25/2018, there has been a prior anterior fusion of C5 and C6. The orthopedic hardware appears to be in good position. The overall appearance of the cervical spine has not changed significantly since the prior exam. There is degenerative disc and bony disease throughout the cervical spine but there is no fracture or acute bony abnormality noted. There is no sign of retropharyngeal edema. The thyroid gland is unremarkable. The sections through the lung apices do show a poorly defined 9.4 mm parenchymal density in the left upper lobe. This portion of the lung was not included on the prior exam. This finding is worrisome for neoplasm. CT of the chest would be recommended for further evaluation. IMPRESSION: 1. There is no evidence for acute bony abnormality. The fusion of C5 and C6 appear stable. 2. The parenchymal density in the left upper lung is of uncertain etiology but worrisome for malignancy. Recommendations as above. Dictated by: Dictated on workstation # [id number]
--- NOTE | 2018-07-01 16:12 | Diagnostic Imaging Report ---
INDICATION: Injury, chest pain. EXAMINATION: Supine AP chest at 3:51 p.m. COMPARISON: There are no prior studies available for comparison. FINDINGS: There is an unusual 2.1 x 9.3 cm crescentic density overlying the midthoracic spine. This may be extraneous to the patient. A followup PA and lateral chest would be recommended for further study. The heart size is within normal limits. The lungs are clear. There is no evidence for failure, pneumonia or pleural effusion. The mediastinum is not widened. The osseous structures are intact. There is an orthopedic plate and screw fixation device overlying the lower cervical spine at C5-6. There is also a ventricular peritoneal shunt in place on the right. Surgical clips are also seen overlying the right upper quadrant. IMPRESSION: 1. The crescentic density overlying the mid thorax is of uncertain etiology. Recommendations as above. 2. There is no acute cardiopulmonary abnormality noted. Dictated by: Dictated on workstation # [id number]
[2018-07-01 16:57] LABS: BILIRUBIN,URINE NEGATIVE (NEGATIVE); CLARITY,URINE CLEAR; COLOR,URINE YELLOW; GLUCOSE, URINE (UA) NEGATIVE (NEGATIVE); KETONES,URINE NEGATIVE (NEGATIVE); LEUKOCYTE ESTERASE ,URINE NEGATIVE (NEGATIVE); NITRITE,URINE NEGATIVE (NEGATIVE); PH,URINE 7 (5-9); PROTEIN,URINE NEGATIVE (NEGATIVE); UROBILINOGEN,URINE NORMAL (NORMAL)
[2018-07-01 17:13] LABS: BACTERIA,URINE NEGATIVE /HPF
[2018-07-01 17:15] VITALS: BP_SYST 106; BP_SYST 121; BP_SYST 126; BP_DIAS 81; BP_DIAS 83
[2018-07-01] MEDS ORDERED: HYDROcodone/APAP 5 MG/325 MG (LORTAB) TAB PO ONE (17:15)
[2018-07-01] MEDS ORDERED: NICO-533 TD (18:13)
[2018-07-01 18:19] VITALS: BP 137/105
== END 2018-07-01 18:24 | disposition home or self-care (01) ==
LOC: ER 13:57 → EDUNIT# 13:57 → ER 18:24
DX: R51 Headache (principal); R91.8 Other nonspecific abnormal finding of lung field; J44.9 Chronic obstructive pulmonary disease, unspecified; I10 Essential (primary) hypertension; F03.90 Unspecified dementia, unspecified severity, without behavioral disturbance, psychotic disturbance, mood disturbance, and anxiety; G40.909 Epilepsy, unspecified, not intractable, without status epilepticus; F41.9 Anxiety disorder, unspecified; F32.9 Major depressive disorder, single episode, unspecified; R40.2142 Coma scale, eyes open, spontaneous, at arrival to emergency department; R40.2252 Coma scale, best verbal response, oriented, at arrival to emergency department; R40.2362 Coma scale, best motor response, obeys commands, at arrival to emergency department; F12.10 Cannabis abuse, uncomplicated; F17.210 Nicotine dependence, cigarettes, uncomplicated; Z98.890 Other specified postprocedural states; Z88.5 Allergy status to narcotic agent; W01.198A Fall on same level from slipping, tripping and stumbling with subsequent striking against other object, initial encounter
CPT/HCPCS: 36415; 70450; 71045; 72125; 80053; 81000; 84484; 85025; 93005

== ENCOUNTER 2018-07-02 12:07 | Inpatient (IN) | payer MEDICAID ==
[~2018-07-02] VITALS: Ht 172.7 cm; Wt 83.9 kg
[~2018-07-02 12:07] MED LIST changes: +FURO-124 PO; +NICO-533 TD; +OXYC1TAB16 PO
[2018-07-02] MEDS ORDERED: RT-ALBUTEROL/IPRATROPIUM 3 ML (DUONEB) VIAL ONE (12:13)
--- NOTE | 2018-07-02 12:26 | ED General ---
General Stated Complaint: SEPSIS Source of Information: Patient, EMS, [facility] Records Exam Limitations: Other (clinical condition) History of Present Illness Date Seen by Provider: Jul 02, 2018 Time Seen by Provider: 12:08 Initial Comments Patient presents to ER by EMS with chief complaint that today per nursing staff he was shaking, febrile had a high blood pressure and high heart rate. Temperature 102F. He is not having any cough. Incoherent mumbling cervical ambulance to bring him out. He does have a history of recent falls and was seen in the ER yesterday by this provider. At that time he was discovered to have a mass. His lungs could not be ruled out as possible malignancy and a CT was offered but the patient said he would prefer to workup outpatient. He walked out of the ER. Labs and vital signs were reviewed to be unremarkable. Patient was having no complaints other than some pain at the base of his spine and lumbar region which was treated well with pain meds. Allergies and Home Medications Allergies Coded Allergies: morphine (Unverified Adverse Reaction, Unknown, 07/01/18) Home Medications Buspirone HCl 30 Mg Tablet, 30 MG PO BID, (Reported) Chlorpromazine HCl 10 Mg Tablet, 10 MG PO TID, (Reported) Divalproex Sodium 500 Mg Tablet.dr, 1,500 MG PO BID Prescribed by: JENIFER EVANS on 05/04/16 0155 Escitalopram Oxalate 20 Mg Tablet, 20 MG PO DAILY, (Reported) Levetiracetam 500 Mg Tablet, 1,500 MG PO BID, (Reported) Memantine HCl 10 Mg Tablet, 20 MG PO BID, (Reported) Nicotine 1 Each Patch.dysq, 14 MG TD DAILY Prescribed by: CODY SCHRADER on 07/01/18 1813 Oxycodone HCl/Acetaminophen 1 Each Tablet, 1 EACH PO Q6H PRN for PAIN-MODERATE, (Reported) Topiramate 100 Mg Tablet, 100 MG PO TID, (Reported) Venlafaxine HCl 225 Mg Tab.er.24, 225 MG PO DAILY, (Reported) Zolpidem Tartrate 10 Mg Tablet, 10 MG PO HS, (Reported) Patient Home Medication List Home Medication List Reviewed: Yes Review of Systems Review of Systems Constitutional: see HPI (patient unable to give a meaningful review of systems) Past Dzcangu-Mukjri-Jgwbqb Hx Patient Social History Recreational Drug Use: Yes Drug of Choice: WEED Smoking Status: Current Everyday Smoker Type Used: Cigarettes Recent Foreign Travel: No Contact w/Someone Who Travel: No Recent Hopitalizations: No Immunizations Up To Date Tetanus Booster (TDap): Unknown Seasonal Allergies Seasonal Allergies: No Past Medical History Surgeries: Yes Brain Shunt Respiratory: Yes Asthma, COPD Currently Using CPAP: No Currently Using BIPAP: No Cardiac: Yes Hypertension Neurological: Yes Dementia, Seizure Disorder, Vertigo Reproductive Disorders: No Genitourinary: No Gastrointestinal: Yes Gastroesophageal Reflux Musculoskeletal: Yes Arthritis Endocrine: No HEENT: No Cancer: No Psychosocial: Yes Anxiety, Depression Integumentary: No Blood Disorders: No Adverse Reaction/Blood Tranf: No Family Medical History No Pertinent Family Hx Physical Exam-Suspected Sepsis Physical Exam Vital Signs Vital Signs - First Documented 07/02/18 07/02/18 12:07 12:17 Temp 101.8 Pulse 152 Resp 38 B/P (MAP) 137/80 (99) Pulse Ox 92 O2 Delivery Non Rebreather O2 Flow Rate 6.00 Capillary Refill : Height, Weight, BMI Height: 5'8.00" Weight: 200lbs. oz. 90.070234cn; BMI Method:Stated General Appearance: Moderate Distress, Other (disheveled) Eyes: Bilateral Eye Normal Inspection, Bilateral Eye PERRL, Bilateral Eye EOMI HEENT: PERRL/EOMI, TMs Normal, Normal ENT Inspection, Pharynx Normal Neck: Full Range of Motion, Normal Inspection, Non Tender, Supple Respiratory: Chest Non Tender, No Accessory Muscle Use, Respiratory Distress, Wheezing (scant), Other (increased expiratory time) Cardiovascular: No Edema, Normal Peripheral Pulses, Tachycardia Gastrointestinal: Normal Bowel Sounds, Soft, Distended Extremity: Normal Capillary Refill, Normal Inspection Neurologic/Psychiatric: Other (mumbling, incoherent; GCS 11) Skin: normal color, warm/dry Focused Exam Lactate Level 07/02/18 12:42: Lactic Acid Level 2.01*H 07/02/18 14:15: Lactic Acid Level Laboratory Tests Test 07/02/18 12:42 07/02/18 14:15 Lactic Acid Level 2.01 MMOL/L (0.50-2.00) *H Procedures/Interventions Suture Size: 4-0 Progress/Results/Core Measures Suspected Sepsis SIRS Temperature: Pulse: Respiratory Rate: Laboratory Tests 07/02/18 12:42: White Blood Count 9.4 Blood Pressure / Mean: 07/02/18 12:42: Lactic Acid Level 2.01*H 07/02/18 14:15: Laboratory Tests 07/02/18 12:42: Creatinine 1.10, INR Comment 1.1, Platelet Count 196, Total Bilirubin 0.6 Results/Orders Lab Results Laboratory Tests Test 07/02/18 12:23 07/02/18 12:42 07/02/18 12:49 07/02/18 14:15 Range/Units Blood Gas Puncture Site lt radial Blood Gas Patient Temperature 101.8 Arterial Blood pH 7.43 7.37-7.43 Arterial Blood Partial Pressure CO2 42 35-45 MMHG Arterial Blood Partial Pressure O2 78 L 79-93 MMHG Arterial Blood HCO3 27 23-27 MMOL/L Arterial Blood Total CO2 28.4 21.0-31.0 MMOL/L Arterial Blood Oxygen Saturation 94 94-100 % Arterial Blood Base Excess 3.5 H -2.5-2.5 MMOL/L Martin Test YES-POS Blood Gas Ventilator Setting NO Blood Gas Inspired Oxygen 6 White Blood Count 9.4 4.3-11.0 10^3/uL Red Blood Count 5.34 4.35-5.85 10^6/uL Hemoglobin 16.2 13.3-17.7 G/DL Hematocrit 48 40-54 % Mean Corpuscular Volume 90 80-99 FL Mean Corpuscular Hemoglobin 30 25-34 PG Mean Corpuscular Hemoglobin Concent 34 32-36 G/DL Red Cell Distribution Width 14.7 H 10.0-14.5 % Platelet Count 196 130-400 10^3/uL Mean Platelet Volume 9.4 7.4-10.4 FL Neutrophils (%) (Auto) 81 H 42-75 % Lymphocytes (%) (Auto) 12 12-44 % Monocytes (%) (Auto) 6 0-12 % Eosinophils (%) (Auto) 1 0-10 % Basophils (%) (Auto) 0 0-10 % Neutrophils # (Auto) 7.7 1.8-7.8 X 10^3 Lymphocytes # (Auto) 1.1 1.0-4.0 X 10^3 Monocytes # (Auto) 0.6 0.0-1.0 X 10^3 Eosinophils # (Auto) 0.1 0.0-0.3 10^3/uL Basophils # (Auto) 0.0 0.0-0.1 10^3/uL Prothrombin Time 14.0 12.2-14.7 SEC INR Comment 1.1 0.8-1.4 Activated Partial Thromboplast Time 28 24-35 SEC Sodium Level 137 135-145 MMOL/L Potassium Level 4.4 3.6-5.0 MMOL/L Chloride Level 98 98-107 MMOL/L Carbon Dioxide Level 23 21-32 MMOL/L Anion Gap 16 H 5-14 MMOL/L Blood Urea Nitrogen 23 H 7-18 MG/DL Creatinine 1.10 0.60-1.30 MG/DL Estimat Glomerular Filtration Rate > 60 BUN/Creatinine Ratio 21 Glucose Level 88 70-105 MG/DL Lactic Acid Level 2.01 *H 0.50-2.00 MMOL/L Calcium Level 9.9 8.5-10.1 MG/DL Corrected Calcium 8.5-10.1 MG/DL Total Bilirubin 0.6 0.1-1.0 MG/DL Aspartate Amino Transf (AST/SGOT) 48 H 5-34 U/L Alanine Aminotransferase (ALT/SGPT) 28 0-55 U/L Alkaline Phosphatase 62 40-136 U/L Ammonia 48 H 11-32 UMOL/L Troponin I < 0.30 <0.30 NG/ML Total Protein 7.9 6.4-8.2 GM/DL Albumin 4.6 H 3.2-4.5 GM/DL Valproic Acid (Depakene) Level 147.4 *H 50.0-100.0 UG/ML Urine Color YELLOW Urine Clarity CLEAR Urine pH 6.5 5-9 Urine Specific [place] 1.010 L 1.016-1.022 Urine Protein NEGATIVE NEGATIVE Urine Glucose (UA) NEGATIVE NEGATIVE Urine Ketones NEGATIVE NEGATIVE Urine Nitrite NEGATIVE NEGATIVE Urine Bilirubin NEGATIVE NEGATIVE Urine Urobilinogen 1 NORMAL MG/DL Urine Leukocyte Esterase NEGATIVE NEGATIVE Urine RBC (Auto) NEGATIVE NEGATIVE Urine RBC NONE /HPF Urine WBC NONE /HPF Urine Crystals NONE /LPF Urine Bacteria NEGATIVE /HPF Urine Casts NONE /LPF Urine Mucus NEGATIVE /LPF Urine Culture Indicated NO Micro Results Microbiology 07/02/18 Influenza Types A,B Antigen (ALEX) - Final, Complete My Orders Orders - CODY SCHRADER Albuterol/Ipra Inhalation Soln (Duoneb I (07/02/18 12:13) Cbc With Automated Diff (07/02/18 12:17) Comprehensive Metabolic Panel (07/02/18 12:17) Blood Culture (07/02/18 12:17) Sputum Culture (07/02/18 12:17) Urinalysis (07/02/18 12:17) Urine Culture (07/02/18 12:17) Protime With Inr (07/02/18 12:17) Partial Thromboplastin Time (07/02/18 12:17) Chest 1 View, Ap/Pa Only (07/02/18 12:17) Saline Lock/Iv-Start (07/02/18 12:17) Saline Lock/Iv-Start (07/02/18 12:17) Ekg Tracing (07/02/18 12:) Vital Signs Adult Sepsis Patie Q15M (07/02/18 12:17) O2 (07/02/18 12:17) Remove Rings In Anticipation O (07/02/18 12:17) Lactic Acid Analyzer (07/02/18 12:17) Influenza A And B Antigens (07/02/18 12:17) Ns Iv 1000 Ml (Sodium Chloride 0.9%) (07/02/18 12:17) Piperacillin Sodium/Tazobactam (Zosyn Vi (07/02/18 12:30) Acetaminophen Suppository (Tylenol Suppo (07/02/18 12:30) Ketorolac Injection (Toradol Injection) (07/02/18 12:30) Arterial Blood Gas (07/02/18 12:25) Ammonia (07/02/18 12:26) Troponin I (07/02/18 12:26) Valproic Acid (07/02/18 12:28) Medications Given in ED Current Medications Medications Dose Ordered Sig/Davin Route Start Time Stop Time Status Last Admin Dose Admin Acetaminophen 650 mg ONCE ONCE TX 07/02/18 12:30 07/02/18 12:31 DC 07/02/18 12:45 650 MG Albuterol/ Ipratropium 3 ml STK-MED ONCE .ROUTE 07/02/18 12:13 07/02/18 12:15 DC 07/02/18 12:17 3 ML Ketorolac Tromethamine 30 mg ONCE ONCE IVP 07/02/18 12:30 07/02/18 12:31 DC 07/02/18 12:45 30 MG Piperacillin Sod/ Tazobactam Sod 4.5 gm/Sodium Chloride 100 ml @ 200 mls/hr ONCE ONCE IV 07/02/18 12:30 07/02/18 12:59 DC 07/02/18 12:45 200 MLS/HR Vital Signs/I&O 07/02/18 07/02/18 12:07 12:17 Temp 101.8 Pulse 152 Resp 38 B/P (MAP) 137/80 (99) Pulse Ox 92 92 O2 Delivery Non Rebreather OxyMask O2 Flow Rate 6.00 Capillary Refill : Progress Note #1: Time: 12:40 Progress Note Suspect sepsis. He did have a lung mass seen partial yesterday and so a pneumonia is possible. Pulmonary embolism is also possible. Having problems with oxygenation. ABG reveals no CO2 problems. Gave him a DuoNeb and his wheezes resolved. Plan to get a CT angiogram if he can tolerate it. He has some bruising on his right upper quadrant and difficult to know if he is having tenderness or not but a CT of the abdomen pelvis with contrast same time as the CT of the chest would also be advisable. Review his labs and CT from yesterday demonstrating no acute abnormalities at that time. Not seeing any acute focal her lactic deficits to suggest stroke or central nervous system pathology. Get a lactate, blood cultures, sample urine, flu, labs and start him on Zosyn. Fever seems to indicate a infectious reason most likely. Progress Note #2: Time: 14:25 Progress Note For the initial fluid boluses done the patient's heart rate is already down below 120 and his mentation is improved. He is able to answer some questions still can't tell me anything useful about what was going on today. He denies that he took any extra Depakote. The elevated ammonia and Depakote could be from liver failure but there is no history of hepatitis. ECG Initial ECG Impression Date: Jul 02, 2018 Initial ECG Impression Time: 12:12 Initial ECG Rate: 154 Initial ECG Rhythm: S.Tach Initial ECG Intervals: QT (474) Initial ECG Impression: Nonspecific Changes Initial ECG Comparisson: No Previous ECG Available Comment Sinus tachycardia with a lot of artifact. Difficult to ascertain if the ST depression is due to sinus tachycardia but it is in inferior, anterior and lateral leads. Strain 2/2 tachycarida. Diagnostic Imaging Diagonstic Imaging: Xray Plain Films/CT/US/NM/MRI: chest (1v) Comments Interval resolution of the crescentic shadow seen on one view chest making it more likely this was a extracorporeal object. No acute infiltrate or other acute cardiopulmonary process noted. Reviewed: Reviewed by Me Departure Communication (Admissions) Time/Spoke to Admitting Phy: 14:25 Discussed case lab imaging findings with Dr. Erickson and she agrees to accept the patient. We discussed the vital signs and she is okay with going to the floor. Impression Primary Impression: Sepsis Qualified Codes: A41.9 - Sepsis, unspecified organism Additional Impressions: Respiratory distress Hypoxia Hyperammonemia Valproic acid toxicity Qualified Codes: T42.6X4A - Poisoning by other antiepileptic and sedative- hypnotic drugs, undetermined, initial encounter Disposition: ADMITTED INPATIENT Condition: Improved Admissions Decision to Admit Reason: Admit from ER (General) Decision to Admit/Date: Jul 02, 2018 Time/Decision to Admit Time: 14:32 Departure-Patient Inst. Referrals: JULIANA WINSLOW MD (PCP) Primary Care Physician ESTEPHANIA IVAN (Family) Primary Care Physician Copy Copies To 1: KIT WILEY TITUS J Jul 02, 2018 12:26
[2018-07-02 12:29] LABS: ABG BASE EXCESS 3.5 MMOL/L (-2.5-2.5); ABG OXYGEN SATURATION 94 % (94-100); ABG PCO2 42 MMHG (35-45); ABG PH 7.43 (7.37-7.43); ABG PO2 78 MMHG (79-93); ABG TCO2 28.4 MMOL/L (21.0-31.0)
[2018-07-02 12:30] LABS: ALLENS TEST YES-POS; INSPIRED O2 6; PATIENT TEMP 101.8; VENTILATOR NO
[2018-07-02] MEDS ORDERED: PIPERACILLIN SODIUM/TAZOBACTAM 4.5 GM in NS (IVPB) 100 ML IV ONE (12:30)
[2018-07-02] MEDS ORDERED: KETOROLAC 30 MG/ML VIAL IVP ONE (12:30)
[2018-07-02] MEDS ORDERED: ACETAMINOPHEN 650 MG SUPP (TYLENOL) PR ONE (12:30)
[2018-07-02] MEDS: NS IV 1000 ML 1,000 ML IV SCH ×2 (12:45→13:45)
[2018-07-02 12:54] LABS: BILIRUBIN,URINE NEGATIVE (NEGATIVE); CLARITY,URINE CLEAR; COLOR,URINE YELLOW; GLUCOSE, URINE (UA) NEGATIVE (NEGATIVE); KETONES,URINE NEGATIVE (NEGATIVE); LEUKOCYTE ESTERASE ,URINE NEGATIVE (NEGATIVE); NITRITE,URINE NEGATIVE (NEGATIVE); PH,URINE 6.5 (5-9); PROTEIN,URINE NEGATIVE (NEGATIVE); UROBILINOGEN,URINE 1 MG/DL (NORMAL)
[2018-07-02 13:02] LABS: BASOPHILS % (AUTO) 0 % (0-10); EOSINOPHILS # (AUTO) 0.1 10^3/uL (0.0-0.3); EOSINOPHILS % (AUTO) 1 % (0-10); HEMATOCRIT 48 % (40-54); HEMOGLOBIN 16.2 G/DL (13.3-17.7); INR 1.1 (0.8-1.4); LYMPHOCYTES # (AUTO) 1.1 X 10^3 (1.0-4.0); LYMPHOCYTES % (AUTO) 12 % (12-44); MEAN CORPUSCULAR HEMOGLOBIN 30 PG (25-34); MEAN CORPUSCULAR HGB CONC 34 G/DL (32-36); MEAN CORPUSCULAR VOLUME 90 FL (80-99); MEAN PLATELET VOLUME 9.4 FL (7.4-10.4); MONOCYTES # (AUTO) 0.6 X 10^3 (0.0-1.0); MONOCYTES % (AUTO) 6 % (0-12); NEUTROPHILS # (AUTO) 7.7 X 10^3 (1.8-7.8); NEUTROPHILS % (AUTO) 81 % (42-75); PLATELET COUNT 196 10^3/uL (130-400); RED BLOOD COUNT 5.34 10^6/uL (4.35-5.85); RED CELL DISTRIBUTION WIDTH 14.7 % (10.0-14.5); WHITE BLOOD COUNT 9.4 10^3/uL (4.3-11.0)
[2018-07-02 13:05] LABS: BACTERIA,URINE NEGATIVE /HPF
--- NOTE | 2018-07-02 13:10 | Diagnostic Imaging Report ---
Indication: Altered mental status with low O2 saturation. Comparison: 07/01/2018. Findings: Central vascular indistinctness has developed. No pleural effusion or pneumothorax. Stable right sided [employer] shunt catheter. The heart is normal in size. Impression: New central vascular indistinctness suggest pulmonary interstitial edema versus severe aspiration. Dictated by: Dictated on workstation # [id number]
[2018-07-02 13:11] LABS: ALANINE AMINOTRANSFERASE 28 U/L (0-55); ALBUMIN 4.6 GM/DL (3.2-4.5); ALKALINE PHOSPHATASE 62 U/L (40-136); AMMONIA 48 UMOL/L (11-32); BILIRUBIN,TOTAL 0.6 MG/DL (0.1-1.0); BUN/CREATININE RATIO 21; CALCIUM 9.9 MG/DL (8.5-10.1); CARBON DIOXIDE 23 MMOL/L (21-32); CHLORIDE 98 MMOL/L (98-107); GFR ESTIMATED > 60; GLUCOSE 88 MG/DL (70-105); POTASSIUM 4.4 MMOL/L (3.6-5.0); SODIUM 137 MMOL/L (135-145); TOTAL PROTEIN 7.9 GM/DL (6.4-8.2)
[2018-07-02 13:18] LABS: VALPROIC ACID 147.4 UG/ML (50.0-100.0)
[2018-07-02] MEDS ORDERED: NS IV 1000 ML 1,000 ML IV SCH (15:24)
[2018-07-02 15:45] VITALS: BP 99/64
[2018-07-02 16:03] VITALS: BP 137/80
[2018-07-02] MEDS ORDERED: VANCOMYCIN 2000 MG/NS 500 ML IVPB IV NR ×2 (16:03)
[2018-07-02] MEDS ORDERED: KETOROLAC 15 MG/ML VIAL IVP PRN (16:15)
[2018-07-02] MEDS: 1/2 NS W/KCL 20 MEQ/L 1,000 ML IV SCH ×3 (16:31→23:51)
[2018-07-02] MEDS: RT-ALBUTEROL/IPRATROPIUM 3 ML (DUONEB) VIAL INH SCH ×2 (19:13→22:27)
[2018-07-02 19:26] VITALS: BP 89/52
[2018-07-02] MEDS: PIPERACILLIN/TAZO 4.5 GM/NS 100 ML IV SCH ×2 (19:42)
[2018-07-02] MEDS ORDERED: RT-ALBUTEROL/IPRATROPIUM 3 ML (DUONEB) VIAL INH PRN (20:00)
[2018-07-02] MEDS: LEVETIRACETAM 500 MG (KEPPRA) TAB PO SCH (20:44)
[2018-07-02] MEDS: LACTULOSE SYRUP 10GM/15ML (ENULOSE) 30ML UDC PO SCH (20:44)
[2018-07-02 22:26] VITALS: BP 100/62
[2018-07-03] VITALS: BP 109/68
[2018-07-03] MEDS: RT-ALBUTEROL/IPRATROPIUM 3 ML (DUONEB) VIAL INH SCH ×6 (03:16→21:54)
[2018-07-03] MEDS: PIPERACILLIN/TAZO 4.5 GM/NS 100 ML IV SCH ×6 (03:40→20:07)
[2018-07-03] MEDS: VANCOMYCIN 1500 MG/NS 500 ML IVPB IV SCH ×4 (03:53→16:08)
[2018-07-03 04:00] VITALS: BP 130/63
[2018-07-03 05:52] LABS: BASOPHILS % (AUTO) 0 % (0-10); EOSINOPHILS % (AUTO) 0 % (0-10); HEMATOCRIT 36 % (40-54); HEMOGLOBIN 12.2 G/DL (13.3-17.7); LYMPHOCYTES # (AUTO) 1.2 X 10^3 (1.0-4.0); LYMPHOCYTES % (AUTO) 9 % (12-44); MEAN CORPUSCULAR HEMOGLOBIN 31 PG (25-34); MEAN CORPUSCULAR HGB CONC 34 G/DL (32-36); MEAN CORPUSCULAR VOLUME 92 FL (80-99); MEAN PLATELET VOLUME 9.4 FL (7.4-10.4); MONOCYTES # (AUTO) 1.7 X 10^3 (0.0-1.0); MONOCYTES % (AUTO) 12 % (0-12); NEUTROPHILS # (AUTO) 10.8 X 10^3 (1.8-7.8); NEUTROPHILS % (AUTO) 78 % (42-75); PLATELET COUNT 166 10^3/uL (130-400); RED CELL DISTRIBUTION WIDTH 14.7 % (10.0-14.5); WHITE BLOOD COUNT 13.8 10^3/uL (4.3-11.0)
[2018-07-03 06:16] LABS: ALANINE AMINOTRANSFERASE 17 U/L (0-55); ALBUMIN 3.2 GM/DL (3.2-4.5); ALKALINE PHOSPHATASE 35 U/L (40-136); BILIRUBIN,TOTAL 0.6 MG/DL (0.1-1.0); BUN/CREATININE RATIO 20; CALCIUM 8.1 MG/DL (8.5-10.1); CARBON DIOXIDE 21 MMOL/L (21-32); CHLORIDE 106 MMOL/L (98-107); CREATININE SERUM 0.88 MG/DL (0.60-1.30); GFR ESTIMATED > 60; GLUCOSE 96 MG/DL (70-105); POTASSIUM 4.2 MMOL/L (3.6-5.0); SODIUM 135 MMOL/L (135-145); TOTAL PROTEIN 5.5 GM/DL (6.4-8.2)
[2018-07-03] MEDS: 1/2 NS W/KCL 20 MEQ/L 1,000 ML IV SCH (06:47)
[2018-07-03 08:05] VITALS: BP 138/71
--- NOTE | 2018-07-03 08:20 | Diagnostic Imaging Report ---
INDICATION: Hypoxia. TIME OF EXAMINATION: 07:53 a.m. COMPARISON: Correlation is made with prior study one day earlier. FINDINGS: Right central line has tip overlying the SVC. There is bilateral perihilar and bibasilar infiltrates, similar to yesterday. No effusion or pneumothorax is seen. IMPRESSION: Stable chest since one day earlier. Dictated by: Dictated on workstation # [id number]
[2018-07-03] MEDS: LACTULOSE SYRUP 10GM/15ML (ENULOSE) 30ML UDC PO SCH ×2 (09:12→20:38)
[2018-07-03] MEDS: LEVETIRACETAM 500 MG (KEPPRA) TAB PO SCH ×2 (09:12→20:38)
[2018-07-03] MEDS: CATHETER FLUSH 10 ML SYR IV SCH ×2 (10:23→20:38)
[2018-07-03] MEDS ORDERED: CATHETER FLUSH 10 ML SYR IV PRN (10:30)
[2018-07-03] MEDS ORDERED: GABA-488 PO (11:36)
[2018-07-03] MEDS ORDERED: POTA20TA15 PO (11:36)
[2018-07-03] MEDS ORDERED: FURO40TA4 PO (11:36)
[2018-07-03] MEDS ORDERED: OXYC-464 PO (11:36)
[2018-07-03] MEDS ORDERED: LEVE500T6 PO (11:36)
[2018-07-03] MEDS ORDERED: RT-ALBUINH IH (11:36)
[2018-07-03] MEDS ORDERED: MENT118G TP (11:36)
[2018-07-03] MEDS ORDERED: NAPR-915 PO (11:36)
[2018-07-03] MEDS ORDERED: MEMA5TAB16 PO (11:36)
[2018-07-03] MEDS ORDERED: CETI10TA20 PO (11:36)
[2018-07-03] MEDS ORDERED: DIVA-76 PO (11:36)
[2018-07-03] MEDS ORDERED: OMEP20CA12 PO (11:36)
[2018-07-03] MEDS ORDERED: OXYB5TAB PO (11:36)
[2018-07-03] MEDS ORDERED: AMIT25TA9 PO (11:36)
[2018-07-03] MEDS ORDERED: CLON0.1T PO (11:36)
[2018-07-03] MEDS ORDERED: FLUT1DIS27 INH (11:36)
[2018-07-03] MEDS ORDERED: ONDA4TAB11 PO (11:36)
[2018-07-03] MEDS ORDERED: CLON0.5T13 PO (11:36)
[2018-07-03] MEDS ORDERED: DOCU-143 PO (11:36)
[2018-07-03] MEDS ORDERED: CLON1TAB13 PO (11:36)
[2018-07-03] MEDS ORDERED: MAGN400O7 PO (11:36)
--- NOTE | 2018-07-03 12:35 | History & Physicial ([facility]) ---
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 He also notes headache for the last 2 days and shortness of breath for a year. Date seen by provider: Jul 03, 2018 Time Seen by Provider: 10:00 Attending Physician Deloris Erickson MD PCP Jasmeet Sood MD Consult Date of Admission Jul 02, 2018 at 2:20 pm Home Medications Home Medications Reviewed patient Home Medication Reconciliation performed by pharmacy medication reconciliations heat treatment technician and/or nursing. Patients Allergies have been reviewed. Allergies Coded Allergies: morphine (Unverified Adverse Reaction, Unknown, 07/01/18) QMT-Zwpczi-Glnatk Hx Patient Social History Alcohol Use: Denies Use Recreational Drug Use: Yes Drug of Choice: WEED Smoking Status: Current Everyday Smoker Type Used: Cigarettes Recent Foreign Travel: No Contact w/other who traveled: No Recent Hopitalizations: No Recent Infectious Disease Expo: No Physical Abuse Screen: No Sexual Abuse: No Immunizations Up To Date Tetanus Booster (TDap): Unknown Date of Influenza Vaccine: Jun 26, 2018 Past Medical History PMHx: Toxoplasmosis PSurgHx: C[employer] shunt Cholecystectomy Appendectomy Family Medical History Significant Family History: No Pertinent Family Hx Review of Systems ([facility]) Constitutional: No fever EENTM: No throat pain Respiratory: see HPI Cardiovascular: chest pain (occasional, none currently) Gastrointestinal: No abdominal pain, No diarrhea, No dysphagia, No melena, No nausea, No vomiting Genitourinary: no symptoms reported Musculoskeletal: joint pain (diffuse) Skin: No rash Reviewed Test Results Reviewed Test Results Lab Laboratory Tests Test 07/02/18 12:23 07/02/18 12:42 07/02/18 12:49 07/02/18 14:15 Range/Units Blood Gas Puncture Site lt radial Blood Gas Patient Temperature 101.8 Arterial Blood pH 7.43 7.37-7.43 Arterial Blood Partial Pressure CO2 42 35-45 MMHG Arterial Blood Partial Pressure O2 78 L 79-93 MMHG Arterial Blood HCO3 27 23-27 MMOL/L Arterial Blood Total CO2 28.4 21.0-31.0 MMOL/L Arterial Blood Oxygen Saturation 94 94-100 % Arterial Blood Base Excess 3.5 H -2.5-2.5 MMOL/L Martin Test YES-POS Blood Gas Ventilator Setting NO Blood Gas Inspired Oxygen 6 White Blood Count 9.4 4.3-11.0 10^3/uL Red Blood Count 5.34 4.35-5.85 10^6/uL Hemoglobin 16.2 13.3-17.7 G/DL Hematocrit 48 40-54 % Mean Corpuscular Volume 90 80-99 FL Mean Corpuscular Hemoglobin 30 25-34 PG Mean Corpuscular Hemoglobin Concent 34 32-36 G/DL Red Cell Distribution Width 14.7 H 10.0-14.5 % Platelet Count 196 130-400 10^3/uL Mean Platelet Volume 9.4 7.4-10.4 FL Neutrophils (%) (Auto) 81 H 42-75 % Lymphocytes (%) (Auto) 12 12-44 % Monocytes (%) (Auto) 6 0-12 % Eosinophils (%) (Auto) 1 0-10 % Basophils (%) (Auto) 0 0-10 % Neutrophils # (Auto) 7.7 1.8-7.8 X 10^3 Lymphocytes # (Auto) 1.1 1.0-4.0 X 10^3 Monocytes # (Auto) 0.6 0.0-1.0 X 10^3 Eosinophils # (Auto) 0.1 0.0-0.3 10^3/uL Basophils # (Auto) 0.0 0.0-0.1 10^3/uL Prothrombin Time 14.0 12.2-14.7 SEC INR Comment 1.1 0.8-1.4 Activated Partial Thromboplast Time 28 24-35 SEC Sodium Level 137 135-145 MMOL/L Potassium Level 4.4 3.6-5.0 MMOL/L Chloride Level 98 98-107 MMOL/L Carbon Dioxide Level 23 21-32 MMOL/L Anion Gap 16 H 5-14 MMOL/L Blood Urea Nitrogen 23 H 7-18 MG/DL Creatinine 1.10 0.60-1.30 MG/DL Estimat Glomerular Filtration Rate > 60 BUN/Creatinine Ratio 21 Glucose Level 88 70-105 MG/DL Lactic Acid Level 2.01 *H 1.11 0.50-2.00 MMOL/L Calcium Level 9.9 8.5-10.1 MG/DL Corrected Calcium 8.5-10.1 MG/DL Total Bilirubin 0.6 0.1-1.0 MG/DL Aspartate Amino Transf (AST/SGOT) 48 H 5-34 U/L Alanine Aminotransferase (ALT/SGPT) 28 0-55 U/L Alkaline Phosphatase 62 40-136 U/L Ammonia 48 H 11-32 UMOL/L Troponin I < 0.30 <0.30 NG/ML Total Protein 7.9 6.4-8.2 GM/DL Albumin 4.6 H 3.2-4.5 GM/DL Valproic Acid (Depakene) Level 147.4 *H 50.0-100.0 UG/ML Urine Color YELLOW Urine Clarity CLEAR Urine pH 6.5 5-9 Urine Specific [place] 1.010 L 1.016-1.022 Urine Protein NEGATIVE NEGATIVE Urine Glucose (UA) NEGATIVE NEGATIVE Urine Ketones NEGATIVE NEGATIVE Urine Nitrite NEGATIVE NEGATIVE Urine Bilirubin NEGATIVE NEGATIVE Urine Urobilinogen 1 NORMAL MG/DL Urine Leukocyte Esterase NEGATIVE NEGATIVE Urine RBC (Auto) NEGATIVE NEGATIVE Urine RBC NONE /HPF Urine WBC NONE /HPF Urine Crystals NONE /LPF Urine Bacteria NEGATIVE /HPF Urine Casts NONE /LPF Urine Mucus NEGATIVE /LPF Urine Culture Indicated NO Test 07/03/18 05:26 Range/Units White Blood Count 13.8 H 4.3-11.0 10^3/uL Red Blood Count 3.90 L 4.35-5.85 10^6/uL Hemoglobin 12.2 #L 13.3-17.7 G/DL Hematocrit 36 L 40-54 % Mean Corpuscular Volume 92 80-99 FL Mean Corpuscular Hemoglobin 31 25-34 PG Mean Corpuscular Hemoglobin Concent 34 32-36 G/DL Red Cell Distribution Width 14.7 H 10.0-14.5 % Platelet Count 166 130-400 10^3/uL Mean Platelet Volume 9.4 7.4-10.4 FL Neutrophils (%) (Auto) 78 H 42-75 % Lymphocytes (%) (Auto) 9 L 12-44 % Monocytes (%) (Auto) 12 0-12 % Eosinophils (%) (Auto) 0 0-10 % Basophils (%) (Auto) 0 0-10 % Neutrophils # (Auto) 10.8 H 1.8-7.8 X 10^3 Lymphocytes # (Auto) 1.2 1.0-4.0 X 10^3 Monocytes # (Auto) 1.7 H 0.0-1.0 X 10^3 Eosinophils # (Auto) 0.0 0.0-0.3 10^3/uL Basophils # (Auto) 0.0 0.0-0.1 10^3/uL Sodium Level 135 135-145 MMOL/L Potassium Level 4.2 3.6-5.0 MMOL/L Chloride Level 106 98-107 MMOL/L Carbon Dioxide Level 21 21-32 MMOL/L Anion Gap 8 5-14 MMOL/L Blood Urea Nitrogen 18 7-18 MG/DL Creatinine 0.88 0.60-1.30 MG/DL Estimat Glomerular Filtration Rate > 60 BUN/Creatinine Ratio 20 Glucose Level 96 70-105 MG/DL Calcium Level 8.1 L 8.5-10.1 MG/DL Corrected Calcium 8.7 8.5-10.1 MG/DL Total Bilirubin 0.6 0.1-1.0 MG/DL Aspartate Amino Transf (AST/SGOT) 26 5-34 U/L Alanine Aminotransferase (ALT/SGPT) 17 0-55 U/L Alkaline Phosphatase 35 L 40-136 U/L Total Protein 5.5 L 6.4-8.2 GM/DL Albumin 3.2 3.2-4.5 GM/DL Radiology CXR 07/02: Impression: New central vascular indistinctness suggest pulmonary interstitial edema versus severe aspiration. Physical Exam-([facility]) Physical Exam Vital Signs VS - Last 72 Hours, by Label 07/02/18 07/02/18 07/02/18 07/02/18 12:07 12:07 12:17 15:28 Temp 101.8 101.5 Pulse 152 120 Resp 38 20 B/P (MAP) 137/80 (99) 99/74 (82) Pulse Ox 92 94 92 93 O2 Delivery Non Rebreather OxyMask OxyMask OxyMask O2 Flow Rate 5.00 6.00 3.00 07/02/18 07/02/18 07/02/18 07/02/18 15:45 15:51 16:03 19:13 Temp 100.1 Pulse 115 152 Resp 20 B/P (MAP) 99/64 (76) Pulse Ox 95 93 92 92 O2 Delivery OxyMask OxyMask OxyMask O2 Flow Rate 3.00 3.00 3.00 11/11/18 11/11/18 11/11/18 11/11/18 19:26 19:38 20:00 22:26 Temp 97.4 98.9 Pulse 102 101 93 Resp 20 18 B/P (MAP) 89/52 (64) 100/62 (75) Pulse Ox 96 99 O2 Delivery OxyMask OxyMask OxyMask O2 Flow Rate 3.00 3.00 3.00 07/02/18 07/03/18 07/03/18 07/03/18 22:27 00:00 01:00 03:16 Temp 98.4 Pulse 94 95 Resp 20 B/P (MAP) 109/68 (82) Pulse Ox 99 100 98 O2 Delivery OxyMask OxyMask OxyMask O2 Flow Rate 2.00 3.00 2.00 07/03/18 07/03/18 07/03/18 07/03/18 04:00 07:00 07:55 08:00 Temp 99.6 Pulse 103 99 Resp 16 B/P (MAP) 130/63 (85) Pulse Ox 98 95 O2 Delivery Nasal Cannula Nasal Cannula Nasal Cannula O2 Flow Rate 2.00 2.00 2.00 07/03/18 07/03/18 07/03/18 08:05 10:44 12:57 Temp 99.6 99.6 Pulse 106 100 Resp 22 22 B/P (MAP) 138/71 (93) 149/87 (107) Pulse Ox 95 96 96 O2 Delivery Nasal Cannula Nasal Cannula Room Air O2 Flow Rate 2.00 2.00 Capillary Refill : Less Than 3 SecondsLess Than 3 Seconds General Appearance: no apparent distress Neck: supple Respiratory: lungs clear, no respiratory distress Cardiovascular: regular rate, rhythm, no murmur Gastrointestinal: normal bowel sounds, non tender, distended (mild, he reports is baseline) Extremities: pedal edema (1+) Neurologic/Psychiatric: alert, normal mood/affect Skin: normal color, warm/dry Assessment/Plan Assessment/Plan Admission Status: Inpatient Order (span 2 midnights) Reason for Inpatient Admission: Sepsis with complicated comorbidities, at high risk for worsening. (1) Sepsis Status: Acute Assessment & Plan: Unsure source, but febrile, tachycardic and tachypneic on admission with slightly elevated lactic acid. Started on vancomycin and Zosyn. Chest x-ray with edema vs aspiration. UA without evidence of infection. Blood cx pending. Qualifiers: Qualified Codes: A41.9 - Sepsis, unspecified organism (2) Hypoxia Status: Acute Assessment & Plan: Due to unclear etiology, CXR with edema vs aspiration. Denies signs of aspiration, but will obtain swallow study. Titrated off of supplemental oxygen this am. On albuterol and Advair at home but no diagnosis in record. Resume home inhalers. RT. (3) Abnormal finding on lung imaging Status: Acute Assessment & Plan: Poorly defined noted on neck CT, will obtain chest CT. (4) Hyperammonemia Status: Acute Assessment & Plan: Check liver US and hepatitis panel. (5) Valproic acid toxicity Status: Acute Assessment & Plan: Hold valproic acid. Qualifiers: Qualified Codes: T42.6X4A - Poisoning by other antiepileptic and sedative- hypnotic drugs, undetermined, initial encounter (6) Gait disturbance Status: Chronic Assessment & Plan: Has been having increasing falls recently, per clinic chart review was recommended that he use wheelchair. Has [employer] ARCHIT[employer] shunt in place, but appears to have no acute problems per CT. PT. (7) Chronic pain Status: Chronic Assessment & Plan: Arthritis. Resume home meds. (8) GERD (gastroesophageal reflux disease) Status: Chronic Assessment & Plan: Resume home PPI. (9) Seizure disorder Status: Chronic Assessment & Plan: Continue Keppra and clonazepam. Holding depakote. (10) Dementia Status: Chronic Assessment & Plan: Resume home memantine (11) DVT prophylaxis Status: Acute Assessment & Plan: Enoxaparin Clinical Quality Measures DVT/VTE Risk/Contraindication: Risk Factor Score Per Nursin RFS Level Per Nursing on Admit: 4+=Very High DELORIS ERICKSON MD Jul 03, 2018 12:34 pm
[2018-07-03] MEDS ORDERED: NON-FORMULARY MEDICATION 1 EA EA (Naproxen 500 MG) PO PRN (12:45)
[2018-07-03] MEDS ORDERED: RT-ALBUTEROL SULF 2.5 MG/3 ML PRE-MIX VIAL IH PRN (12:45)
[2018-07-03] MEDS ORDERED: PHARMACY TO DOSE SQ SCH (12:45)
[2018-07-03] MEDS ORDERED: MILK OF MAGNESIA 400 MG/5 ML 30 ML UDC PO PRN (12:45)
[2018-07-03] MEDS ORDERED: NON-FORMULARY MEDICATION 1 EA EA (Cetirizine HCl (Zyrtec) 10 MG) PO PRN (12:45)
[2018-07-03] MEDS ORDERED: ONDANSETRON 4 MG (ZOFRAN) ORAL DISSOLVE TAB PO PRN (12:45)
[2018-07-03 12:57] VITALS: BP 149/87
[2018-07-03] MEDS ORDERED: LORATADINE (CLARITIN) 10 MG TAB PO PRN (13:15)
[2018-07-03] MEDS: ENOXAPARIN 40 MG/0.4 ML (LOVENOX) SYR SC SCH (14:45)
[2018-07-03] MEDS: GABAPENTIN 300 MG (NEURONTIN) CAP PO SCH ×2 (14:45→20:37)
[2018-07-03] MEDS: oxyCODONE/APAP 7.5-325 MG (PERCOCET 7.5) TABLET PO PRN (14:49)
--- NOTE | 2018-07-03 15:08 | Diagnostic Imaging Report ---
PROCEDURE: CT chest without contrast. TECHNIQUE: Multiple contiguous axial images were obtained through the chest without the use of intravenous contrast. INDICATION: Questionable lung mass noted on recent CT of the cervical spine. The study is performed for further evaluation. COMPARISON: Correlation is made with recent CT of the head and cervical spine performed on 07/01/2018. FINDINGS: No axillary lymphadenopathy is detected. Hilar and mediastinal evaluation is limited without intravenous contrast. There is a small lymph node in the right paratracheal location with short axis measurement of approximately 7 mm. There are coronary arterial calcifications present. No pericardial or pleural fluid is identified. Parenchymal evaluation does show central airways to be patent. There are several areas of patchy airspace density in bilateral upper and lower lobes. Area noted on recent CT in the left upper lobe also demonstrates more of a patchy density and is less mass like. The upper abdomen is unremarkable. IMPRESSION: Patchy airspace infiltrates in bilateral upper and lower lobes, likely on an infectious/inflammatory basis. No discrete parenchymal mass is identified. Dictated by: Dictated on workstation # [id number]
--- NOTE | 2018-07-03 15:14 | Diagnostic Imaging Report ---
PROCEDURE: US Hepatic (Liver). TECHNIQUE: Multiple real-time grayscale images were obtained over the right upper quadrant in various projections. INDICATION: Elevated ammonia levels. FINDINGS: The liver is upper limits of normal in size at 17.7 cm. Liver demonstrates diffuse increased echogenicity consistent with hepatic steatosis. No discrete liver mass is identified. The gallbladder is surgically absent. No biliary duct dilatation is seen. The pancreas is obscured by bowel gas. The right kidney is unremarkable. There is no ascites. IMPRESSION: Mild hepatic steatosis. The study is otherwise unremarkable. Dictated by: Dictated on workstation # [id number]
--- NOTE | 2018-07-03 15:54 | ST Dysphagia Evaluation ---
Speech Evaluation-General Medical Diagnosis Brain Cancer Therapy Diagnosis Therapy Diagnosis: Dysphagia Precautions Precautions: Aspiration Precautions/Isolations: Seizure, Fall Prevention, Standard Precautions Referral Referring Physician: Dr. Rima Erickson Reason for Referral: Evaluation/Treatment Medical History Brain cancer Reviewed History: Yes Speech PLF/Current-Dysphagia Prior Level of Function Pt resides in nursing facility. Has decreased cognition. Subjective Pt pleasant and cooperative. Cognitive Status Patient Orientation: Person, Confused Oral Motor Skills Dentition: Edentalous Current Food Consistancy: Thin Liquids Oral Expression Ability: No Impairment Voice Voice Phonatory-Based Quality: Normal Voice Pitch: Normal Voice Loudness: Normal Face Facial Symmetry: Symmetrical Dysphagia Evaluation Consistencies Presented: Thin Liquid, Mechanical Soft, Pureed Appeared WFL Appeared WFL Dietary Recommendations: Mechanical Soft (for safety purposes due to decreased mental status and no teeth) Liquid Recommendations: Thin Informed diet change with nursing. Dysphagia Evaluation Summary Pt appears to have functional swallow for recommended diet. Solids were not attempted due to pt edentulous with decreased mental status. Speech Short Term Goals Short Term Goals Short Term Goals no goals established as skilled ST not indicated. Speech Snf Goals Snf Goals no goals established as skilled ST not indicated. Speech-Plan Patient/Family Goals Patient/Family Goals: pt unable to state goals Treatment Plan Speech Therapy Treatment Plan: Discontinue ST Dc skilled ST as pt does not require services. Frequency: Modified Program (IRF) (0) Estimated Hrs Per Day: Other (0) Rehab Potential: Guarded Barriers to Learning: Decreased mental status. Pt/Family Agrees to Plan: Yes Safety Risks/Education Teaching Recipient: Patient Teaching Methods: Discussion Response to Teaching: Unable to Comprehend Time Speech Therapy Time In: 15:00 Speech Therapy Time Out: 15:15 Total Billed Time: 15 Billed Treatment Time 1AMAN RACQUEL Tellez Jul 03, 2018 15:54
[2018-07-03 16:24] VITALS: BP 137/82
[2018-07-03] MEDS: RT-ADVAIR HFA 115/21 MCG PER PUFF IH SCH (18:19)
[2018-07-03 20:19] VITALS: BP 139/89
[2018-07-03] MEDS: DOCUSATE SODIUM 100 MG (COLACE) CAP PO SCH (20:37)
[2018-07-03] MEDS: cloNIDine 0.1 MG (CATAPRES) TAB PO SCH (20:37)
[2018-07-03] MEDS: NAPROXEN 250 MG (NAPROSYN) TABLET PO PRN (20:37)
[2018-07-03] MEDS: clonazePAM 1 MG (KlonoPIN) TAB PO SCH (20:37)
[2018-07-03] MEDS: AMITRIPTYLINE 25 MG (ELAVIL) TAB PO SCH (20:38)
[2018-07-03] MEDS ORDERED: NON-FORMULARY MEDICATION 1 EA EA (Clonazepam 1 MG) PO SCH (21:00)
[2018-07-03] MEDS ORDERED: LEVETIRACETAM 1500 MG PO SCH (21:00)
[2018-07-03] MEDS ORDERED: NON-FORMULARY MEDICATION 1 EA EA (Fluticasone/Salmeterol (Advair 500-50 Diskus) 1 PUFF) INH SCH (21:00)
[2018-07-04] VITALS: BP 141/83
[2018-07-04] MEDS: oxyCODONE/APAP 7.5-325 MG (PERCOCET 7.5) TABLET PO PRN ×2 (00:53→17:06)
[2018-07-04] MEDS: RT-ALBUTEROL/IPRATROPIUM 3 ML (DUONEB) VIAL INH SCH ×6 (01:35→21:42)
[2018-07-04] MEDS: VANCOMYCIN 1500 MG/NS 500 ML IVPB IV SCH ×4 (03:17→16:22)
[2018-07-04 04:00] VITALS: BP 113/78
[2018-07-04] MEDS: CATHETER FLUSH 10 ML SYR IV SCH ×3 (05:24→20:47)
[2018-07-04] MEDS: PIPERACILLIN/TAZO 4.5 GM/NS 100 ML IV SCH ×6 (05:24→18:54)
[2018-07-04] MEDS: PANTOPRAZOLE 20 MG TABLET (PROTONIX) PO SCH (05:29)
[2018-07-04 06:03] LABS: HEMOGLOBIN 12.6 G/DL (13.3-17.7); MEAN PLATELET VOLUME 9.5 FL (7.4-10.4); RED BLOOD COUNT 4.19 10^6/uL (4.35-5.85); RED CELL DISTRIBUTION WIDTH 14.4 % (10.0-14.5); WHITE BLOOD COUNT 10.1 10^3/uL (4.3-11.0)
[2018-07-04 06:22] LABS: ALANINE AMINOTRANSFERASE 19 U/L (0-55); ALBUMIN 3.5 GM/DL (3.2-4.5); ALKALINE PHOSPHATASE 42 U/L (40-136); AMMONIA 33 UMOL/L (11-32); BILIRUBIN,TOTAL 0.5 MG/DL (0.1-1.0); BUN/CREATININE RATIO 10; CALCIUM 9.2 MG/DL (8.5-10.1); CARBON DIOXIDE 25 MMOL/L (21-32); CHLORIDE 109 MMOL/L (98-107); CREATININE SERUM 0.88 MG/DL (0.60-1.30); GFR ESTIMATED > 60; GLUCOSE 100 MG/DL (70-105); POTASSIUM 3.9 MMOL/L (3.6-5.0); SODIUM 141 MMOL/L (135-145); TOTAL PROTEIN 6.2 GM/DL (6.4-8.2)
[2018-07-04] MEDS: RT-ADVAIR HFA 115/21 MCG PER PUFF IH SCH ×2 (06:24→19:13)
[2018-07-04 08:00] VITALS: BP 103/61
--- NOTE | 2018-07-04 08:26 | Physical Therapy Evaluation ---
PT Evaluation-General Medical Diagnosis Admission Date Jul 02, 2018 at 14:20 Medical Diagnosis: Brain Cancer Onset Date: Jul 02, 2018 Therapy Diagnosis Therapy Diagnosis: General Weakness, Debilty Height/Weight Height (Feet): 5 Height (Inches): 8.00 Weight (Pounds): 184 Weight (Ounces): 14.0 Precautions Precautions/Isolations: Seizure, Fall Prevention Weight Bear Status Right Lower Extremity: Right Weight Bearing/Tolerated Left Lower Extremity: Left Weight Bearing/Tolerated Referral Physician: Deloris Erickson MD Reason for Referral: Evaluation/Treatment Medical History Pertinent Medical History: Dementia, HTN Additional Medical History Sepsis, HTN, Brain shunt, Dementia, Seizure, GERD, Anxiety, Depression Current History EMS with elevated HR and fever Reviewed History: Yes Social History Home: Prison Entry Into Home: Level Entry PT Steps Into Home: 0 PT Steps Inside Home: 0 Prior/Core FIM Prior Level of Function Functional [place] Measure 0=Not Assessed/NA 4=Minimal Assistance 1=Total Assistance 5=Supervision or Setup 2=Maximal Assistance 6=Modified [place] 3=Moderate Assistance 7=Complete IndependenceIRFPAI Quality Coding Scale 6 Independent with activity with or without an assistive device 5 Patient requires set up or clean up by helper. Patient completes activity by themselves 4 Supervision or touching assist (CGA). [place] provide cues , steadying assist 3 The helper provides less than half the effort to complete the activity 2 The helper provides more than half the effort to complete the activity 1 Dependent. The helper does all the effort to complete an activity 7 Patient refused to complete or attempt activity 9 The patient did not perform the activity before the current illness or injury 88 Not attempted due to Medical conditions or safety concerns Bed Mobility: 5 Transfers (B,C,W/C) (FIM): 5 Gait: 1 Wheelchair Mobility: 5 PT Evaluation-Current Subjective Pt awake in bed with breakfast when PT arrived. Pt agreed to evaluation by PT. Pain Numeric Pain Scale: 0-No Pain Location: No Pain Reported Objective Patient Orientation: Confused, Mumbles Problem Solving: Poor Attachments: Oxygen, Cantrell Catheter, IV ROM/Strength ROM Upper Extremities WNL ROM Lower Extremities WNL Strength Upper Extremities NT Strength Lower Extremities Patient unable to follow direction for gross motor assessment. Integumentary/Posture Bladder Incontinence: Cantrell Cath Neuromuscular (Tone, Coordination, Reflexes) diminished coordination Sensory Vision: Functional Hearing: Functional Sensation Right Upper Extremit: Intact Sensation Left Upper Extremity: Intact Sensation Right Lower Extremit: Intact Sensation Left Lower Extremity: Intact Transfers Functional [place] Measure 0=Not Assessed/NA 4=Minimal Assistance 1=Total Assistance 5=Supervision or Setup 2=Maximal Assistance 6=Modified [place] 3=Moderate Assistance 7=Complete [place] Transfers (B, C, W/C) (FIM): 4 Scootin Rollin Supine to/from Sit: 4 Sit to/from Stand: 4 Gait Mode of Locomotion: Both Anticipated Mode of Locomotion: Both Gait (FIM): 1 Distance (FIM): 1=up to 49 ft Distance: 5' Gait Level of Assist: 3 Gait Persons Needed: 1 Gait Assistive Device: FWW Comments/Gait Description slightly retropulsive with FWW Balance Sitting Static: Fair Sitting Dynamic: Fair Standing Static: Fair Standing Dynamic: Fair Assessment/Needs PT needs Min A with bed mobility and transfers Patient states that his legs are very weak and requires mod with ambulation. [facility] and reports that he uses a WC for locomotion currently. Rehab Potential: Guarded PT Prison Goals Prison Goals PT Prison Goals Time Frame: Jul 11, 2018 Transfers (B,C,W/C) (FIM): 5 Gait (FIM): 1 Gait distance (FIM): 1=up to 49 ft Distance: 10 Gait Level of Assist: 4 Gait Assistive Device: FWW Wheelchair (FIM): 5 Wheelchair distance (FIM): 3=150 ft Distance: 150' Wheelchair Level of Assist: 5 PT Plan Problem List Problem List: Activity Tolerance, Functional Strength, Safety, Balance, Gait, Transfer, Bed Mobility, ROM Treatment/Plan Treatment Plan: Continue Plan of Care Treatment Plan: Bed Mobility, Education, Functional Activity Arlene, Functional Strength, Group Therapy, Gait, Safety, Therapeutic Exercise, Transfers Treatment Duration: Jul 11, 2018 Frequency: 6 times per week Estimated Hrs Per Day: .25 hour per day Patient and/or Family Agrees t: Yes Safety Risks/Education Response to Teaching: Verbalize Understanding, Reinforcement Needed Time/GCodes Time In: 806 Time Out: 818 Total Billed Treatment Time: 12 Total Billed Treatment 1 Visit [facility] - 12' TONYA RIOS PT Jul 04, 2018 08:26
[2018-07-04] MEDS: KCL 20 MEQ TAB (K-DUR) PO SCH (08:34)
[2018-07-04] MEDS ORDERED: OMEPRAZOLE 20 MG (PriLOSEC) CAP NON-FORMULARY PO SCH (09:00)
[2018-07-04] MEDS ORDERED: OXYBUTYNIN ER 5 MG (DITROPAN XL) TAB NON-FORMULARY PO SCH (09:00)
[2018-07-04] MEDS ORDERED: NON-FORMULARY MEDICATION 1 EA EA (Memantine HCl 5 MG) PO SCH (09:00)
[2018-07-04] MEDS: OXYBUTYNIN (DITROPAN) 5 MG TAB PO SCH ×2 (11:52→20:40)
[2018-07-04] MEDS: LACTULOSE SYRUP 10GM/15ML (ENULOSE) 30ML UDC PO SCH ×2 (11:52→20:39)
[2018-07-04] MEDS: clonazePAM 0.5 MG (KlonoPIN) TAB PO SCH (11:52)
[2018-07-04] MEDS: DOCUSATE SODIUM 100 MG (COLACE) CAP PO SCH ×2 (11:52→20:40)
[2018-07-04] MEDS: GABAPENTIN 300 MG (NEURONTIN) CAP PO SCH ×3 (11:52→20:40)
[2018-07-04] MEDS: FUROSEMIDE 40 MG (LASIX) TAB PO SCH (11:53)
[2018-07-04] MEDS: MEMANTINE 5 MG (NAMENDA) TABLET PO SCH (11:53)
[2018-07-04] MEDS: LEVETIRACETAM 500 MG (KEPPRA) TAB PO SCH ×2 (11:53→20:39)
[2018-07-04] MEDS: cloNIDine 0.1 MG (CATAPRES) TAB PO SCH ×2 (11:53→20:40)
[2018-07-04 12:00] VITALS: BP 136/88
--- NOTE | 2018-07-04 12:02 | Physician Query Clarification ---
PQ-Further Specificity Admission/Discharge Admission Date: Jul 02, 2018 at 14:20 Discharge Date: The medical record reflects the following clinical scenario: History/Risk Factors: Seizure Disorder Clinical Findings:Valproic Acid level 147.4 Treatment: Holding valproic acid. Question: Can you further specify the Valproic acid toxicity per the clinical indicators above? Please document below. 1. Adverse effect of valproic acid properly administered. 2. Poisoning due to improper use of medication. 3. Other, with explanation of the clinical findings. 4. Clinically undetermined, no explanation for the clinical findings. PHYSICIAN RESPONSE Can you specify per above: 1 In responding to this query, please exercise your independent professional judgment. The purpose of this communication is to more accurately reflect the complexity of your patients condition. The fact that a question is asked does not imply that any particular answer is desired or expected. Thank you for your timely response to this clarification. Requestors name: Barbra Zimmer [facility] Phone # ext [phone] or [phone] THIS PHYSICIAN QUERY FORM IS A PERMANENT PART OF THE MEDICAL RECORD BARBRA ZIMMER Jul 04, 2018 12:02 VERONIQUE GARCIA MD Jul 04, 2018 19:46
[2018-07-04] MEDS ORDERED: TROUGH ORDER-PHARMACY XX ONE (15:00)
[2018-07-04 16:10] VITALS: BP 108/75
[2018-07-04] MEDS: ENOXAPARIN 40 MG/0.4 ML (LOVENOX) SYR SC SCH (16:22)
--- NOTE | 2018-07-04 16:53 | Progress Note (SOAP) ---
Subjective Subjective/Events-last exam Afebrile, no acute events. States he still has headache, no other concerns. Review of Systems Date Seen by Provider: Jul 04, 2018 Time Seen by Provider: 11:40 Focused Exam Lactate Level 07/02/18 12:42: Lactic Acid Level 2.01*H 07/02/18 14:15: Lactic Acid Level 1.11 Objective Exam Last Set of Vital Signs Vital Signs Date Time Temp Pulse Resp B/P (MAP) Pulse Ox O2 Delivery O2 Flow Rate FiO2 07/04/18 14:04 97 2.00 07/04/18 14:04 Nasal Cannula 07/04/18 13:00 79 07/04/18 12:00 95.2 22 136/88 (104) Capillary Refill : Less Than 3 SecondsLess Than 3 Seconds I&O Intake and Output 07/04/18 00:00 Intake Total 3900 ml Output Total 2400 ml Balance 1500 ml Intake Oral 2585 ml IV Total 1315 ml Output Urine Total 2400 ml # Voids 1 # Bowel Movements 1 General: Alert, No Acute Distress Lungs: Clear to Auscultation, Normal Air Movement Heart: Regular Rate, No Murmurs Abdomen: Normal Bowel Sounds, Soft Extremities: No Edema Neuro: Other (oriented to self only) Results/Procedures Lab Laboratory Tests 07/04/18 05:34: Sodium Level 141, Potassium Level 3.9, Chloride Level 109H, Carbon Dioxide Level 25, Anion Gap 7, Blood Urea Nitrogen 9, Creatinine 0.88, Estimat Glomerular Filtration Rate > 60, BUN/Creatinine Ratio 10, Glucose Level 100, Calcium Level 9.2, Corrected Calcium 9.6, Total Bilirubin 0.5, Aspartate Amino Transf (AST/SGOT) 29, Alanine Aminotransferase (ALT/SGPT) 19, Alkaline Phosphatase 42, Ammonia 33H, Total Protein 6.2L, Albumin 3.5 07/04/18 05:54: White Blood Count 10.1, Red Blood Count 4.19L, Hemoglobin 12.6L, Hematocrit 39L , Mean Corpuscular Volume 92, Mean Corpuscular Hemoglobin 30, Mean Corpuscular Hemoglobin Concent 33, Red Cell Distribution Width 14.4, Platelet Count 139, Mean Platelet Volume 9.5 07/04/18 14:50: Vancomycin Level Trough 18.7 Microbiology 07/02/18 Blood Culture - Preliminary, Resulted No growth 07/03/18 MRSA Screen - Final, Complete 07/02/18 Urine Culture - Final, Complete NO GROWTH Radiology CXR 07/02: Impression: New central vascular indistinctness suggest pulmonary interstitial edema versus severe aspiration. Assessment/Plan Assessment/Plan (1) Sepsis Status: Acute Assessment & Plan: Unsure source, but febrile, tachycardic and tachypneic on admission with slightly elevated lactic acid. Started on vancomycin and Zosyn. Chest x-ray with edema vs aspiration. UA without evidence of infection. Blood cx pending. Continued on vancomycin and zosyn, suspected pneumonia. Qualifiers: Qualified Codes: A41.9 - Sepsis, unspecified organism (2) Hypoxia Status: Acute Assessment & Plan: Due to unclear etiology, CXR with edema vs aspiration. Denies signs of aspiration, but will obtain swallow study. Titrated off of supplemental oxygen this am. On albuterol and Advair at home but no diagnosis in record. Resume home inhalers. RT. 07/04- swallow eval by speech therapy okay, still requiring supplemental oxygen at rest, will continue abx and re-eval tomorrow (3) Abnormal finding on lung imaging Status: Acute Assessment & Plan: Poorly defined noted on neck CT, will obtain chest CT. 07/04- no mass seen on CT, findings consistent with infiltrate, treating as noted above. (4) Hyperammonemia Status: Acute Assessment & Plan: Check liver US and hepatitis panel. 07/04- liver US with steatosis, hepatitis panel pending, ammonia decreased today (5) Valproic acid toxicity Status: Acute Assessment & Plan: Hold valproic acid. Qualifiers: Qualified Codes: T42.6X4A - Poisoning by other antiepileptic and sedative- hypnotic drugs, undetermined, initial encounter (6) Gait disturbance Status: Chronic Assessment & Plan: Has been having increasing falls recently, per clinic chart review was recommended that he use wheelchair. Has KING MAKER shunt in place, but appears to have no acute problems per CT. PT. (7) Chronic pain Status: Chronic Assessment & Plan: Arthritis. Resume home meds. (8) GERD (gastroesophageal reflux disease) Status: Chronic Assessment & Plan: Resume home PPI. (9) Seizure disorder Status: Chronic Assessment & Plan: Continue Keppra and clonazepam. Holding depakote. (10) Dementia Status: Chronic Assessment & Plan: Resume home memantine (11) DVT prophylaxis Status: Acute Assessment & Plan: Enoxaparin Clinical Quality Measures DVT/VTE Risk/Contraindication: Risk Factor Score Per Nursin RFS Level Per Nursing on Admit: 4+=Very High VERONIQUE GARCIA MD Jul 04, 2018 16:53
[2018-07-04 20:20] VITALS: BP 130/73
[2018-07-04] MEDS: clonazePAM 1 MG (KlonoPIN) TAB PO SCH (20:40)
[2018-07-04] MEDS: AMITRIPTYLINE 25 MG (ELAVIL) TAB PO SCH (20:42)
[2018-07-04] MEDS: NAPROXEN 250 MG (NAPROSYN) TABLET PO PRN (22:01)
[2018-07-05] VITALS: BP 113/73
[2018-07-05] MEDS: RT-ALBUTEROL/IPRATROPIUM 3 ML (DUONEB) VIAL INH SCH ×3 (02:30→10:32)
[2018-07-05] MEDS: PIPERACILLIN/TAZO 4.5 GM/NS 100 ML IV SCH ×4 (03:24→11:17)
[2018-07-05] MEDS: VANCOMYCIN 1500 MG/NS 500 ML IVPB IV SCH ×2 (03:24)
[2018-07-05 04:00] VITALS: BP 122/86
[2018-07-05] MEDS: PANTOPRAZOLE 20 MG TABLET (PROTONIX) PO SCH (06:04)
[2018-07-05 06:41] LABS: HEMOGLOBIN 11.9 G/DL (13.3-17.7); MEAN PLATELET VOLUME 9.2 FL (7.4-10.4); RED BLOOD COUNT 3.89 10^6/uL (4.35-5.85); RED CELL DISTRIBUTION WIDTH 14.3 % (10.0-14.5); WHITE BLOOD COUNT 6.9 10^3/uL (4.3-11.0)
[2018-07-05 06:41] LABS: HEPATITIS C ANTIBODY C Non-Reactive (Non-Reactive)
[2018-07-05 06:56] LABS: BUN/CREATININE RATIO 12; CALCIUM 9.4 MG/DL (8.5-10.1); CARBON DIOXIDE 26 MMOL/L (21-32); CHLORIDE 105 MMOL/L (98-107); CREATININE SERUM 0.81 MG/DL (0.60-1.30); GFR ESTIMATED > 60; GLUCOSE 92 MG/DL (70-105); POTASSIUM 4.4 MMOL/L (3.6-5.0); SODIUM 139 MMOL/L (135-145)
[2018-07-05] MEDS: RT-ADVAIR HFA 115/21 MCG PER PUFF IH SCH (06:59)
[2018-07-05 08:00] VITALS: BP 112/70
[2018-07-05] MEDS: LACTULOSE SYRUP 10GM/15ML (ENULOSE) 30ML UDC PO SCH (09:15)
[2018-07-05] MEDS: DOCUSATE SODIUM 100 MG (COLACE) CAP PO SCH (09:15)
[2018-07-05] MEDS: KCL 20 MEQ TAB (K-DUR) PO SCH (09:15)
[2018-07-05] MEDS: MEMANTINE 5 MG (NAMENDA) TABLET PO SCH (09:15)
[2018-07-05] MEDS: OXYBUTYNIN (DITROPAN) 5 MG TAB PO SCH (09:15)
[2018-07-05] MEDS: GABAPENTIN 300 MG (NEURONTIN) CAP PO SCH ×2 (09:16→13:21)
[2018-07-05] MEDS: cloNIDine 0.1 MG (CATAPRES) TAB PO SCH (09:16)
[2018-07-05] MEDS: LEVETIRACETAM 500 MG (KEPPRA) TAB PO SCH (09:17)
[2018-07-05] MEDS: FUROSEMIDE 40 MG (LASIX) TAB PO SCH (09:17)
--- NOTE | 2018-07-05 09:20 | Physical Therapy Daily Note ---
PT Daily Note-Current Subjective Asleep in bed, when awakened agrees to Rx. States he is dizzy and has had 28 brain surgeries. Agrees to Rx Pain Numeric Pain Scale: 0-No Pain Comment: c/o weakness and dizziness only Mental Status Patient Orientation: Person, Place, Situation Attachments: Cantrell Catheter, IV Transfers Functional [place] Measure 0=Not Assessed/NA 4=Minimal Assistance 1=Total Assistance 5=Supervision or Setup 2=Maximal Assistance 6=Modified [place] 3=Moderate Assistance 7=Complete IndependenceIRFPAI Quality Coding Scale 6 Independent with activity with or without an assistive device 5 Patient requires set up or clean up by helper. Patient completes activity by themselves 4 Supervision or touching assist (CGA). [place] provide cues , steadying assist 3 The helper provides less than half the effort to complete the activity 2 The helper provides more than half the effort to complete the activity 1 Dependent. The helper does all the effort to complete an activity 7 Patient refused to complete or attempt activity 9 The patient did not perform the activity before the current illness or injury 88 Not attempted due to Medical conditions or safety concerns Transfers (B, C, W/C) (FIM): 4 Scootin Rollin Supine to/from Sit: 4 Sit to/from Stand: 4 Weight Bearing Right Lower Extremity: Right Weight Bearing/Tolerated Left Lower Extremity: Left Weight Bearing/Tolerated Gait Training Gait (FIM): 1 Distance (FIM): 1=up to 49 ft (5ft) Gait Assistive Device: FWW side step only a few feet at EOB as pt. is very fearful of walking and declined up in chair Exercises Seated Therapy Exercises: Ankle pumps, Long arc quads Seated Reps: 8 Treatments EOB with min assist, initially with poor balance for sitting then improved, sit to stand x 3 with min to mod assist never leaving bed side. min assist sit to sup Assessment Current Status: Fair Progress PT Detention Goals Detention Goals PT Poultry Farmer Goals Time Frame: Jul 11, 2018 Transfers (B,C,W/C) (FIM): 5 Gait (FIM): 1 Gait distance (FIM): 1=up to 49 ft Distance: 10 Gait Level of Assist: 4 Gait Assistive Device: FWW Wheelchair (FIM): 5 Wheelchair distance (FIM): 3=150 ft Distance: 150' Wheelchair Level of Assist: 5 PT Plan Treatment/Plan Treatment Plan: Continue Plan of Care Treatment Plan: Bed Mobility, Education, Functional Activity Arlene, Functional Strength, Group Therapy, Gait, Safety, Therapeutic Exercise, Transfers Treatment Duration: Jul 11, 2018 Frequency: 6 times per week Estimated Hrs Per Day: .25 hour per day Patient and/or Family Agrees t: Yes Safety Risks/Education Patient Education: Gait Training, Transfer Techniques, Correct Positioning, Disease Process, Safety Issues Teaching Recipient: Patient Teaching Methods: Demonstration, Discussion Response to Teaching: Verbalize Understanding, Return Demonstration, Reinforcement Needed Time/GCodes Time In: 835 Time Out: 900 Total Billed Treatment Time: 25 Total Billed Treatment 1,FA25m G Codes Necessary: MILES [place] TEST DRIVER Jul 05, 2018 09:20
[2018-07-05] MEDS: clonazePAM 0.5 MG (KlonoPIN) TAB PO SCH (09:23)
[2018-07-05] MEDS: CATHETER FLUSH 10 ML SYR IV SCH ×2 (09:23→14:06)
[2018-07-05] MEDS: oxyCODONE/APAP 7.5-325 MG (PERCOCET 7.5) TABLET PO PRN (11:20)
[2018-07-05 12:00] VITALS: BP 120/80
[2018-07-05] MEDS ORDERED: LEVO750T39 PO (13:09)
--- NOTE | 2018-07-05 13:14 | Discharge Instructions ---
Discharge [facility] Discharge Medications New, Converted or Re-Newed RX: Transmitted to Pharmacy New Medications: Levofloxacin (Levofloxacin) 750 Mg Tablet 750 MG PO DAILY, #7 TAB 0 Refills Continued Medications: Albuterol Sulfate (Proair Hfa) 1 Puff Puff 2 PUFF IH Q4H PRN for SHORTNESS OF BREATH, INHALER 1 PUFF = 90 MCG Amitriptyline HCl (Amitriptyline HCl) 25 Mg Tablet 50 MG PO HS, TAB TAKES 2 (25MG) TABLETS Cetirizine HCl (Zyrtec) 10 Mg Tablet 10 MG PO DAILY PRN for ALLERGIES, TAB Clonazepam (Clonazepam) 0.5 Mg Tablet 0.5 MG PO DAILY, TAB Clonazepam (Clonazepam) 1 Mg Tablet 1 MG PO HS, TAB Clonidine HCl (Clonidine HCl) 0.1 Mg Tablet 0.1 MG PO BID, TAB Divalproex Sodium (Divalproex Sodium) 500 Mg Tablet.dr 1500 MG PO BID, TAB TAKES 3 (500MG) TABLETS Docusate Sodium (Colace) 100 Mg Capsule 100 MG PO BID, CAP Fluticasone/Salmeterol (Advair 500-50 Diskus) 1 Each Blst.w.dev 1 PUFF INH BID, INHALER Furosemide (Furosemide) 40 Mg Tablet 40 MG PO DAILY, TAB Gabapentin (Gabapentin) 300 Mg Capsule 300 MG PO TID, CAP Levetiracetam (Levetiracetam) 500 Mg Tablet 1500 MG PO BID, TAB TAKES 3 (500MG) TABLETS Magnesium Hydroxide (Milk of Magnesia) 400 Mg/5 Ml Oral.susp 30 ML PO DAILY PRN for CONSTIPATION-7TH LINE, ML Memantine HCl (Memantine HCl) 5 Mg Tablet 5 MG PO DAILY, TAB Menthol (Biofreeze) 118 Ml Gel..ml. TP HS, TUBE APPLY TO BILATERAL ANKLES Naproxen (Naproxen) 500 Mg Tablet 500 MG PO Q12H PRN for PAIN-MILD, TAB Omeprazole (Omeprazole) 20 Mg Capsule.dr 20 MG PO DAILY, CAP Oxybutynin Chloride (Oxybutynin Chloride ER) 5 Mg Tab.er.24 5 MG PO DAILY, TAB Oxycodone HCl/Acetaminophen (Oxycodon-Acetaminophen 7.5-325) 1 Each Tablet 1 TAB PO Q6H PRN for PAIN-MODERATE, TAB Potassium Chloride (Potassium Chloride) 20 Meq Tab.er.prt 20 MEQ PO DAILY, TAB Discontinued Medications: Ondansetron (Ondansetron Odt) 4 Mg Tab.rapdis 4 MG PO Q8H PRN for NAUSEA/VOMITING-1ST LINE, TAB Patient Instructions Goal/Follow Up Appt: Barbie Phillips APRN will see you in the senior care. Patient Instructions: Patient needs to be on supplemental oxygen at all times until follow up evaluation. He desaturated to 83% on room air at rest, requires 2 lpm continuously. [facility]: Fever, increasing oxygen requirement, worsening confusion. Activity & Diet Discharge Diet: Regular Diet Activity as Tolerated: Yes Orders-Post D/C & Referrals Pneu Vac Indicated: Yes Copy Copies To 1: SHAWN Cloud BETHANY N MD Jul 05, 2018 1:14 pm
[2018-07-05] MEDS: ENOXAPARIN 40 MG/0.4 ML (LOVENOX) SYR SC SCH (14:05)
--- NOTE | 2018-07-05 14:37 | Discharge Summary ---
Diagnosis/Chief Complaint Date of Admission Jul 02, 2018 at 2:20 pm Date of Discharge Admission Diagnosis Admission Diagnosis See problem list Discharge Diagnosis See problem list Problems/Diagnosis: (1) Sepsis Assessment & Plan: Unsure source, but febrile, tachycardic and tachypneic on admission with slightly elevated lactic acid. Started on vancomycin and Zosyn. Chest x-ray with edema vs aspiration. UA without evidence of infection. Blood cx pending. Continued on vancomycin and zosyn, suspected pneumonia- improved vitals. Discharged with 7 days of levofloxacin. Qualifiers: Qualified Codes: A41.9 - Sepsis, unspecified organism Status: Acute (2) Hypoxia Assessment & Plan: Due to unclear etiology, CXR with edema vs aspiration. Denies signs of aspiration, but will obtain swallow study. Titrated off of supplemental oxygen this am. On albuterol and Advair at home but no diagnosis in record. Resume home inhalers. RT. 07/04- swallow eval by speech therapy okay, still requiring supplemental oxygen at rest, will continue abx and re-eval tomorrow 07/05- vitals and mental status improved, still requiring supplemental oxygen, discharged to nursing facility with O2 orders. Status: Acute (3) Abnormal finding on lung imaging Assessment & Plan: Poorly defined noted on neck CT, will obtain chest CT. 07/04- no mass seen on CT, findings consistent with infiltrate, treated as noted above Status: Acute (4) Hyperammonemia Assessment & Plan: Check liver US and hepatitis panel. 07/04- liver US with steatosis, hepatitis panel pending, ammonia decreased today 07/05- hepatitis panel neg Status: Acute (5) Valproic acid toxicity Assessment & Plan: Held valproic acid, resumed on d/c, will need level rechecked to confirm therapeutic dosing. Qualifiers: Qualified Codes: T42.6X4A - Poisoning by other antiepileptic and sedative- hypnotic drugs, undetermined, initial encounter Status: Acute (6) Gait disturbance Assessment & Plan: Has been having increasing falls recently, per clinic chart review was recommended that he use wheelchair. Has COMPUTING SERVICES DIRECTOR shunt in place, but appears to have no acute problems per CT. PT. Status: Chronic (7) Chronic pain Assessment & Plan: Arthritis. Resume home meds. Status: Chronic (8) GERD (gastroesophageal reflux disease) Assessment & Plan: Resume home PPI. Status: Chronic (9) Seizure disorder Assessment & Plan: Continue Keppra and clonazepam. Held depakote while inpatient. 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 He also notes headache for the last 2 days and shortness of breath for a year. Discharge Summary-Simple/Stand Consultations Discharge Physical Examination Allergies: Coded Allergies: morphine (Unverified Adverse Reaction, Unknown, 07/01/18) Vitals & I&Os Vital Sign - Last 12Hours Date Time Temp Pulse Resp B/P (MAP) Pulse Ox O2 Delivery O2 Flow Rate FiO2 07/05/18 13:00 90 07/05/18 12:00 96.9 20 120/80 (93) 97 Nasal Cannula 2.00 Intake and Output 07/05/18 00:00 Intake Total 2715 ml Output Total 1480 ml Balance 1235 ml General Appearance: Alert, No Acute Distress Respiratory: Clear to Auscultation Cardiovascular: Regular Rate, No Murmurs Psych/Mental Status: Other (oriented to self and location, states month and year off by one month and one year) Hospital Course See final discharge diagnosis. Labs Laboratory Tests Test 07/04/18 05:34 07/04/18 05:54 07/04/18 14:50 07/05/18 06:27 Range/Units Sodium Level 141 139 135-145 MMOL/L Potassium Level 3.9 4.4 3.6-5.0 MMOL/L Chloride Level 109 H 105 98-107 MMOL/L Carbon Dioxide Level 25 26 21-32 MMOL/L Anion Gap 7 8 5-14 MMOL/L Blood Urea Nitrogen 9 10 7-18 MG/DL Creatinine 0.88 0.81 0.60-1.30 MG/DL Estimat Glomerular Filtration Rate > 60 > 60 BUN/Creatinine Ratio 10 12 Glucose Level 100 92 70-105 MG/DL Calcium Level 9.2 9.4 8.5-10.1 MG/DL Corrected Calcium 9.6 8.5-10.1 MG/DL Total Bilirubin 0.5 0.1-1.0 MG/DL Aspartate Amino Transf (AST/SGOT) 29 5-34 U/L Alanine Aminotransferase (ALT/SGPT) 19 0-55 U/L Alkaline Phosphatase 42 40-136 U/L Ammonia 33 H 11-32 UMOL/L Total Protein 6.2 L 6.4-8.2 GM/DL Albumin 3.5 3.2-4.5 GM/DL Hepatitis A IgM Antibody Non-Reactive Non-Reactive Hepatitis B Surface Antigen Non-Reactive Non-Reactive Hepatitis B Core IgM Antibody Non-Reactive Non-Reactive Hepatitis C Antibody Non-Reactive Non-Reactive White Blood Count 10.1 6.9 4.3-11.0 10^3/uL Red Blood Count 4.19 L 3.89 L 4.35-5.85 10^6/uL Hemoglobin 12.6 L 11.9 L 13.3-17.7 G/DL Hematocrit 39 L 35 L 40-54 % Mean Corpuscular Volume 92 91 80-99 FL Mean Corpuscular Hemoglobin 30 31 25-34 PG Mean Corpuscular Hemoglobin Concent 33 34 32-36 G/DL Red Cell Distribution Width 14.4 14.3 10.0-14.5 % Platelet Count 139 176 130-400 10^3/uL Mean Platelet Volume 9.5 9.2 7.4-10.4 FL Vancomycin Level Trough 18.7 10.0-20.0 UG/ML Radiology Reviewed CXR 07/02: Impression: New central vascular indistinctness suggest pulmonary interstitial edema versus severe aspiration. Discharge Instructions to patient/family Please see electronic discharge instructions given to patient. Discharge Medications Reviewed and agree with Discharge Medication list on patient's Discharge Instruction sheet Clinical Quality Measures DVT/VTE Risk/Contraindication: Risk Factor Score Per Nursin RFS Level Per Nursing on Admit: 4+=Very High Copy Copies To 1: SHAWN Cloud BETHANY N MD Jul 05, 2018 14:37
== END 2018-07-05 15:05 | DRG 871 ==
LOC: EDUNIT# 12:07 → ER 12:08 → 4TH 14:20
PROVIDERS: ADMIT Family Medicine; ATTEND Family Medicine
DX: A41.9 Sepsis, unspecified organism (principal); J18.9 Pneumonia, unspecified organism; E72.20 Disorder of urea cycle metabolism, unspecified; R09.02 Hypoxemia; R06.03 Acute respiratory distress; J44.9 Chronic obstructive pulmonary disease, unspecified; F17.210 Nicotine dependence, cigarettes, uncomplicated; I10 Essential (primary) hypertension; G40.909 Epilepsy, unspecified, not intractable, without status epilepticus; F03.90 Unspecified dementia, unspecified severity, without behavioral disturbance, psychotic disturbance, mood disturbance, and anxiety; K21.9 Gastro-esophageal reflux disease without esophagitis; R26.9 Unspecified abnormalities of gait and mobility; G89.29 Other chronic pain; Z91.81 History of falling; M19.91 Primary osteoarthritis, unspecified site; F41.9 Anxiety disorder, unspecified; F32.9 Major depressive disorder, single episode, unspecified; T42.6X5A Adverse effect of other antiepileptic and sedative-hypnotic drugs, initial encounter
CPT/HCPCS: 36415; 71045; 71046; 71250; 76705; 80048; 80053; 80074; 80164; 80202; 81000; 82140; 82805; 83605; 84484; 85025; 85027; 85610; 85730; 87040; 87081; 87088; 87804; 93005; 94640; 94760; 94761; 96361; 96365; 96375

== ENCOUNTER → 2018-10-16 | Outpatient (CLI) | payer MEDICAID ==
[~2018-10-16] MED LIST changes: +AMIT25TA9 PO; +CETI10TA20 PO; +CLON0.1T PO; +CLON0.5T13 PO; +CLON1TAB13 PO; +DIVA-76 PO; +DOCU-143 PO; +FLUT1DIS27 INH; +FURO40TA4 PO; +GABA-488 PO; +LEVE500T6 PO; +LEVO750T39 PO; +MAGN400O7 PO; +MEMA5TAB16 PO; +MENT118G TP; +NAPR-915 PO; +OMEP20CA12 PO; +ONDA4TAB11 PO; +OXYB5TAB PO; +OXYC-464 PO; +POTA20TA15 PO; +RT-ALBUINH IH
--- NOTE | 2018-10-18 09:11 | Physician Query-Final Dx ---
BETO MEYER 10/18/18 0911: Clinic Account Progress/Dx Physician Query: Please give a diagnosis for the flu swab thank you Date of Service Oct 16, 2018 at 21:27 KIT WILEY DO 10/19/18 1031: Clinic Account Progress/Dx DIAGNOSIS: Diagnosis Fever BETSY,BETO Oct 18, 2018 09:11 KIT WILEY DO Oct 19, 2018 10:31
== END ==
LOC: LABNPT 21:27
PROVIDERS: ATTEND Family Medicine
DX: R50.9 Fever, unspecified (principal)
CPT/HCPCS: 87804

== ENCOUNTER 2018-10-21 08:23 | Inpatient (IN) | payer MEDICAID ==
[~2018-10-21] VITALS: Ht 170.2 cm; Wt 76.7 kg
--- NOTE | 2018-10-21 09:00 | ED General ---
General Chief Complaint: Altered Mental Status Stated Complaint: LETHARGIC Source of Information: Patient, EMS Exam Limitations: Physical Impairments History of Present Illness Date Seen by Provider: Oct 21, 2018 Time Seen by Provider: 08:56 Initial Comments This 51-year-old white male presents via paramedics with a change in mentation over the last 24 hours. The patient was largely unresponsive this morning precipitating his presentation to the emergency department. There is a limited amount of information available at this point but it would appear the patient has had no associated complaints of headache or stiff neck, chest pain or palpitations, shortness of breath or productive cough, vomiting, diarrhea, dysuria, or lateralizing or localizing neurologic complaints. Allergies and Home Medications Allergies Coded Allergies: morphine (Unverified Adverse Reaction, Unknown, 07/01/18) Home Medications Albuterol Sulfate 1 Puff Puff, 2 PUFF IH Q4H PRN for SHORTNESS OF BREATH, ( Reported) 1 PUFF = 90 MCG Amitriptyline HCl 25 Mg Tablet, 50 MG PO HS, (Reported) TAKES 2 (25MG) TABLETS Cetirizine HCl 10 Mg Tablet, 10 MG PO DAILY PRN for ALLERGIES, (Reported) Clonazepam 0.5 Mg Tablet, 0.5 MG PO DAILY, (Reported) Clonazepam 1 Mg Tablet, 1 MG PO HS, (Reported) Clonidine HCl 0.1 Mg Tablet, 0.1 MG PO BID, (Reported) Divalproex Sodium 500 Mg Tablet.dr, 1,500 MG PO BID, (Reported) TAKES 3 (500MG) TABLETS Docusate Sodium 100 Mg Capsule, 100 MG PO BID, (Reported) Fluticasone/Salmeterol 1 Each Blst.w.dev, 1 PUFF INH BID, (Reported) Furosemide 40 Mg Tablet, 40 MG PO DAILY, (Reported) Gabapentin 300 Mg Capsule, 300 MG PO TID, (Reported) Levetiracetam 500 Mg Tablet, 1,500 MG PO BID, (Reported) TAKES 3 (500MG) TABLETS Levofloxacin 750 Mg Tablet, 750 MG PO DAILY Prescribed by: VERONIQUE GARCIA on 07/05/18 1309 Magnesium Hydroxide 400 Mg/5 Ml Oral.susp, 30 ML PO DAILY PRN for CONSTIPATION- 7TH LINE, (Reported) Memantine HCl 5 Mg Tablet, 5 MG PO DAILY, (Reported) Menthol 118 Ml Gel..ml., TP HS, (Reported) APPLY TO BILATERAL ANKLES Naproxen 500 Mg Tablet, 500 MG PO Q12H PRN for PAIN-MILD, (Reported) Omeprazole 20 Mg Capsule.dr, 20 MG PO DAILY, (Reported) Oxybutynin Chloride 5 Mg Tab.er.24, 5 MG PO DAILY, (Reported) Oxycodone HCl/Acetaminophen 1 Each Tablet, 1 TAB PO Q6H PRN for PAIN-MODERATE, ( Reported) Potassium Chloride 20 Meq Tab.er.prt, 20 MEQ PO DAILY, (Reported) Patient Home Medication List Home Medication List Reviewed: Yes Review of Systems Review of Systems Constitutional: No fever, No malaise; weakness EENTM: No ear pain Respiratory: No cough Cardiovascular: No chest pain, No palpitations Gastrointestinal: No diarrhea, No vomiting Genitourinary: no symptoms reported Musculoskeletal: No back pain Skin: No rash Psychiatric/Neurological: No Symptoms Reported Hematologic/Lymphatic: No Symptoms Reported Immunological/Allergic: no symptoms reported Past Dxpqkip-Djqewf-Clekvf Hx Past Med/Social Hx: Reviewed Nursing Past Med/Soc Hx Patient Social History Drug of Choice: WEED Type Used: Cigarettes Recent Hopitalizations: No Immunizations Up To Date Tetanus Booster (TDap): Unknown Date of Influenza Vaccine: Jun 26, 2018 Seasonal Allergies Seasonal Allergies: No Past Medical History Surgeries: Yes Brain Shunt Respiratory: Yes Asthma, COPD Currently Using CPAP: No Currently Using BIPAP: No Cardiac: Yes Hypertension Neurological: Yes Dementia, Seizure Disorder, Vertigo Reproductive Disorders: No Genitourinary: No Gastrointestinal: Yes Gastroesophageal Reflux Musculoskeletal: Yes Arthritis Endocrine: No HEENT: No Cancer: No Psychosocial: Yes Anxiety, Depression Integumentary: No Blood Disorders: No Adverse Reaction/Blood Tranf: No Family Medical History No Pertinent Family Hx Physical Exam Vital Signs Capillary Refill : Height, Weight, BMI Height: 5'8.00" Weight: 184lbs. 14.0oz. [id number]; 28.1 BMI Method:Stated General Appearance: WD/WN, Other (lethargic) Eyes: Bilateral Eye Normal Inspection HEENT: Normal ENT Inspection Neck: Normal Inspection, Supple Respiratory: Decreased Breath Sounds Cardiovascular: Regular Rate, Rhythm Gastrointestinal: Normal Bowel Sounds, Distended Extremity: Normal Inspection Neurologic/Psychiatric: Other (patient moves 4 extremities and responds to painful stimuli. He is unable to offer helpful history. He is verbal but inappropriate.) Skin: Normal Color, Warm/Dry; No Rash Focused Exam Lactate Level 10/21/18 09:08: Lactic Acid Level 1.66 Lactic Acid Level Laboratory Tests Test 10/21/18 09:08 Lactic Acid Level 1.66 MMOL/L (0.50-2.00) Procedures/Interventions Suture Size: 4-0 Progress/Results/Core Measures Suspected Sepsis SIRS Temperature: Pulse: Respiratory Rate: Laboratory Tests 10/21/18 08:40: White Blood Count 14.4H Blood Pressure / Mean: 10/21/18 09:08: Lactic Acid Level 1.66 Laboratory Tests 10/21/18 08:40: Creatinine 1.04, Platelet Count 176, Total Bilirubin 0.4 Results/Orders Lab Results Laboratory Tests Test 10/21/18 08:40 10/21/18 09:08 10/21/18 10:09 Range/Units White Blood Count 14.4 H 4.3-11.0 10^3/uL Red Blood Count 5.37 4.35-5.85 10^6/uL Hemoglobin 16.4 13.3-17.7 G/DL Hematocrit 48 40-54 % Mean Corpuscular Volume 90 80-99 FL Mean Corpuscular Hemoglobin 31 25-34 PG Mean Corpuscular Hemoglobin Concent 34 32-36 G/DL Red Cell Distribution Width 14.4 10.0-14.5 % Platelet Count 176 130-400 10^3/uL Mean Platelet Volume 10.0 7.4-10.4 FL Neutrophils (%) (Auto) 73 42-75 % Lymphocytes (%) (Auto) 10 L 12-44 % Monocytes (%) (Auto) 13 H 0-12 % Eosinophils (%) (Auto) 2 0-10 % Basophils (%) (Auto) 2 0-10 % Neutrophils # (Auto) 10.5 H 1.8-7.8 X 10^3 Lymphocytes # (Auto) 1.4 1.0-4.0 X 10^3 Monocytes # (Auto) 1.9 H 0.0-1.0 X 10^3 Eosinophils # (Auto) 0.3 0.0-0.3 10^3/uL Basophils # (Auto) 0.3 H 0.0-0.1 10^3/uL Neutrophils % (Manual) 49 % Lymphocytes % (Manual) 18 % Monocytes % (Manual) 15 % Eosinophils % (Manual) 1 % Band Neutrophils 17 % Blood Morphology Comment NORMAL Sodium Level 139 135-145 MMOL/L Potassium Level 4.6 3.6-5.0 MMOL/L Chloride Level 100 98-107 MMOL/L Carbon Dioxide Level 24 21-32 MMOL/L Anion Gap 15 H 5-14 MMOL/L Blood Urea Nitrogen 33 H 7-18 MG/DL Creatinine 1.04 0.60-1.30 MG/DL Estimat Glomerular Filtration Rate > 60 BUN/Creatinine Ratio 32 Glucose Level 129 H 70-105 MG/DL Calcium Level 9.4 8.5-10.1 MG/DL Corrected Calcium 9.7 8.5-10.1 MG/DL Total Bilirubin 0.4 0.1-1.0 MG/DL Aspartate Amino Transf (AST/SGOT) 69 H 5-34 U/L Alanine Aminotransferase (ALT/SGPT) 26 0-55 U/L Alkaline Phosphatase 68 40-136 U/L Troponin I < 0.028 <0.028 NG/ML Total Protein 7.6 6.4-8.2 GM/DL Albumin 3.6 3.2-4.5 GM/DL Lipase 10 8-78 U/L Lactic Acid Level 1.66 0.50-2.00 MMOL/L Glucometer 173 H 70-110 MG/DL My Orders Orders - DUGLAS WAGNER MD Cbc With Automated Diff (10/21/18 08:53) Comprehensive Metabolic Panel (10/21/18 08:53) Urinalysis Dipstick Only (10/21/18 08:53) Ct Abdomen/Pelvis Wo (10/21/18 08:53) Ct Head Wo (10/21/18 08:53) Lipase (10/21/18 08:53) Chest 1 View, Ap/Pa Only (10/21/18 08:53) Ekg Tracing (10/21/18 08:53) Troponin I (10/21/18 08:53) Blood Culture (10/21/18 08:53) Lactic Acid Analyzer (10/21/18 08:53) Manual Differential (10/21/18 08:40) Zosyn 4.5 Gm (One Time Dose) (10/21/18 10:45) Vital Signs/I&O Capillary Refill : Progress Note : Time: 10:42 Progress Note Patient's chest x-ray demonstrated a right lower lobe infiltrate. CT of the abdomen and head fell demonstrated evidence of acute pathology. Next Medical consultation with Dr. Tejeda patient was admitted with pneumonia and Zosyn 4.5 gms was initiated. Departure Communication (Admissions) Time/Spoke to Admitting Phy: 10:43 Dr. Tejeda Impression Primary Impression: Pneumonia Qualified Codes: J18.1 - Lobar pneumonia, unspecified organism Disposition: ADMITTED INPATIENT Condition: Improved Admissions Decision to Admit Reason: Admit from ER (General) Decision to Admit/Date: Oct 21, 2018 Time/Decision to Admit Time: 10:45 Departure-Patient Inst. Referrals: JULIANA WINSLOW MD (PCP) Primary Care Physician ESTEPHANIA IVAN (Family) Primary Care Physician DUGLAS WAGNER MD Oct 21, 2018 09:00
[2018-10-21 09:01] LABS: BASOPHILS # (AUTO) 0.3 10^3/uL (0.0-0.1); BASOPHILS % (AUTO) 2 % (0-10); EOSINOPHILS # (AUTO) 0.3 10^3/uL (0.0-0.3); EOSINOPHILS % (AUTO) 2 % (0-10); HEMATOCRIT 48 % (40-54); HEMOGLOBIN 16.4 G/DL (13.3-17.7); LYMPHOCYTES # (AUTO) 1.4 X 10^3 (1.0-4.0); LYMPHOCYTES % (AUTO) 10 % (12-44); MEAN CORPUSCULAR HEMOGLOBIN 31 PG (25-34); MEAN CORPUSCULAR HGB CONC 34 G/DL (32-36); MEAN CORPUSCULAR VOLUME 90 FL (80-99); MONOCYTES # (AUTO) 1.9 X 10^3 (0.0-1.0); MONOCYTES % (AUTO) 13 % (0-12); NEUTROPHILS # (AUTO) 10.5 X 10^3 (1.8-7.8); NEUTROPHILS % (AUTO) 73 % (42-75); PLATELET COUNT 176 10^3/uL (130-400); RED CELL DISTRIBUTION WIDTH 14.4 % (10.0-14.5); WHITE BLOOD COUNT 14.4 10^3/uL (4.3-11.0)
[2018-10-21 09:19] LABS: ALANINE AMINOTRANSFERASE 26 U/L (0-55); ALBUMIN 3.6 GM/DL (3.2-4.5); ALKALINE PHOSPHATASE 68 U/L (40-136); BILIRUBIN,TOTAL 0.4 MG/DL (0.1-1.0); BUN/CREATININE RATIO 32; CALCIUM 9.4 MG/DL (8.5-10.1); CARBON DIOXIDE 24 MMOL/L (21-32); CHLORIDE 100 MMOL/L (98-107); CREATININE SERUM 1.04 MG/DL (0.60-1.30); GFR ESTIMATED > 60; GLUCOSE 129 MG/DL (70-105); LIPASE 10 U/L (8-78); POTASSIUM 4.6 MMOL/L (3.6-5.0); SODIUM 139 MMOL/L (135-145); TOTAL PROTEIN 7.6 GM/DL (6.4-8.2)
[2018-10-21 09:39] LABS: BAND NEUTROPHILS 17 %; EOSINOPHILS % (MANUAL) 1 %; LYMPHOCYTES % (MANUAL) 18 %; MONOCYTES % (MANUAL) 15 %; NEUTROPHILS % (MANUAL) 49 %; RBC MORPH NORMAL
--- NOTE | 2018-10-21 09:57 | Diagnostic Imaging Report ---
Indication: Lethargy and altered mental status. Frontal chest obtained at 9:42 hours a.m. is compared to 07/03/2018. Heart is normal in size. Shunt catheter over the right chest is noted. There is some mild infiltrate or atelectasis in the right base. Left lung is clear. There is no pneumothorax or pleural fluid. Impression: Mild infiltrate versus atelectasis of the right lung base. Left lung is grossly clear. Shunt catheter over the right chest is again noted. Dictated by: Dictated on workstation # [id number]
--- NOTE | 2018-10-21 10:22 | Diagnostic Imaging Report ---
INDICATION: Altered mental status and lethargy. Noncontrast brain CT is performed and compared with 07/01/2018 FINDINGS: The patient has had previous bilateral craniotomies. There is encephalomalacic change in the right temporal region which is similar to the prior study. There is no acute hemorrhage or subdural or epidural collection. There is extensive chronic low-density change in the deep white matter which is unchanged compared to the prior study. Prominence of the right temporal horn is unchanged compared to the prior study may be due to volume loss. There is mild asymmetric prominence of the left lateral ventricle which also appears chronic and unchanged compared to the prior study. The third ventricle and fourth ventricle are unchanged. IMPRESSION: Shunt catheter remains in place from right-sided approach, with tip across the midline into the left lateral ventricle. There is stable ventricular configuration in size compared to the prior study, with asymmetric prominence of left lateral ventricle and right temporal horn appearing unchanged compared to the prior study. There is extensive low-density change in the deep white matter which is chronic and unchanged. There is encephalomalacic change in the right temporal lobe which is also stable. There is no acute hemorrhage or acute change compared to the previous study. The patient has had bilateral craniotomies. Dictated by: Dictated on workstation # [id number]
--- NOTE | 2018-10-21 10:23 | Diagnostic Imaging Report ---
PROCEDURE: CT abdomen and pelvis without contrast. TECHNIQUE: Multiple contiguous axial images were obtained through the abdomen and pelvis without the use of intravenous contrast. INDICATION: Altered mental status and lethargy with history of a ventriculoperitoneal shunt. FINDINGS: There are both right-sided ventriculoperitoneal shunt as well as a left-sided lumboperitoneal shunt present. There are no findings of discontinuity of the shunt catheter tubing. There are no fluid collections demonstrated about the distal aspect of the shunts. Lung bases and demonstrates abnormal consolidative infiltrates within the right lower lobe suggestive of pneumonia. There is no pleural effusion. The liver demonstrates no focal intrahepatic abnormality. Patient is status post cholecystectomy without biliary dilatation. The pancreas demonstrates no focal abnormality. The spleen is normal in size. There is no adrenal mass. Kidneys nonobstructed without evidence of urolithiasis. The small and large bowel are normal in caliber without evidence of obstruction. There is no focal abnormal bowel thickening demonstrated. There are no inflammatory changes in the right lower quadrant. Urinary bladder is mildly distended. Urinary bladder has a slightly thickened appearance of its wall. There is no free fluid present within the pelvis. There are no pathologically enlarged lymph nodes. There are atherosclerotic calcifications within a normal caliber aorta. There are multilevel degenerative endplate changes present but no acute or suspicious osseous abnormality. IMPRESSION: 1. Visualized portions of the patient's ventriculoperitoneal shunt catheter appear intact. Lumboperitoneal shunt is also present. There are no fluid collections around the tip of the catheters or evidence of discontinuity of the shunt tubing. 2. Right lower lobe pulmonary consolidation compatible with pneumonia 3. Distended urinary bladder with a slightly thickened appearance to the urinary bladder wall. Cystitis cannot be excluded. Consider correlation with urinalysis. 4. Previous cholecystectomy. 5. No evidence of bowel obstruction. 6. No free air, free fluid or evidence of focal inflammation within the omentum or mesentery. Dictated by: Dictated on workstation # [id number]
[2018-10-21] MEDS ORDERED: PIPERACILLIN/TAZOBACTAM (BULK) 4.5 GM in NS (IVPB) 100 ML IV ONE (10:45)
[2018-10-21 11:50] VITALS: BP 115/84
--- NOTE | 2018-10-21 12:00 | NUR ---
JULIANA BENJAMIN admitted to room 414-1, with an admitting diagnosis of AMS, on 10/21/18 from [facility] via BED/CART, accompanied by STAFF. JULIANA BENJAMIN introduced to surroundings, call light, bed controls, phone, TV, temperature control, lights, meal times, smoking policy, visitor policy, side rail policy, bathrooms and showers. Patient Rights given to patient in the handbook. JULIANA BENJAMIN verbalizes understanding that [facility] is not responsible for the loss or damage to any personal effects or valuables that are kept in the patients possession during their hospitalization.
[2018-10-21] MEDS ORDERED: RT-ALBUTEROL/IPRATROPIUM 3 ML (DUONEB) VIAL IH PRN (12:30)
[2018-10-21] MEDS ORDERED: CATHETER FLUSH 10 ML SYR IV PRN (12:30)
[2018-10-21] MEDS ORDERED: NS IV 1000 ML 1,000 ML IV SCH (12:30)
--- NOTE | 2018-10-21 12:47 | History & Physical-Hospitalist ---
History of Present Illness HPI/Chief Complaint CC: Pneumonia HPI: This is a 53yoWM [facility] patient of [facility] who was last admitted 07/09 for pneumonia presents to the ER w/fever and AMS and found to have pneumonia. Patient unable to provide any hx due to confusion and lethargy. Poor venous access so central line will be requested. Reviewed NH meds and restarted most adrianna seizure meds. Source: RN/MD, old records Exam Limitations: clinical condition Date Seen 10/21/18 Time Seen by a Provider: 11:45 Attending Physician Lety Tejeda DO PCP Jasmeet Sood MD Referring Physician Date of Admission Oct 21, 2018 at 10:40 Home Medications & Allergies Home Medications Reviewed patient Home Medication Reconciliation performed by pharmacy medication reconciliations train control electronic technician and/or nursing. Patients Allergies have been reviewed. Allergies Allergies Coded Allergies morphine (Unverified Adverse Reaction, Unknown, 07/01/18) Past Izssjjg-Ecbdiu-Uveked Hx Past Med/Social Hx: Reviewed Nursing Past Med/Soc Hx, Reviewed and Corrections made Patient Social History Marrital Status: single Employed/Student: unemployed Alcohol Use: Denies Use Recreational Drug Use: No Drug of Choice: WEED Smoking Status: Unknown if Ever Smoked Type Used: Cigarettes Recent Foreign Travel: No (Unable to answer) Contact w/other who traveled: No (Unable to answer) Recent Hopitalizations: No Immunizations Up To Date Tetanus Booster (TDap): Unknown Date of Influenza Vaccine: Jun 26, 2018 Seasonal Allergies Seasonal Allergies: No Past Medical History Surgeries: Brain Shunt Respiratory: Pneumonia Currently Using CPAP: No Currently Using BIPAP: No Cardiac: Hypertension Neurological: Dementia, Seizure Disorder, Vertigo Reproductive: No Gastrointestinal: Gastroesophageal Reflux Musculoskeletal: Arthritis Psychosocial: Anxiety, Depression History of Blood Disorders: No Adverse Reaction to Blood [place]: No Family History No Pertinent Family Hx Review of Systems ROS-Unable to Obtain: unable to ascertain Constitutional: see HPI Physical Exam Physical Exam Vital Signs Vital Signs - First Documented 10/21/18 08:25 Temp 98.8 Pulse 110 Resp 18 B/P (MAP) 129/98 (108) Pulse Ox 94 Capillary Refill : Less Than 3 Seconds Height, Weight, BMI Height: 5'7.00" Weight: 169lbs. 3.0oz. [id number]; 26.5 BMI Method:Estimated General Appearance: WD/WN, Anxious, Chronically ill, Moderate Distress, Other ( confused) Eyes: Right Eye Normal Inspection, Right Eye PERRL HEENT: PERRL/EOMI, Normal ENT Inspection, Pharynx Normal, Moist Mucous Membranes Neck: Full Range of Motion, Normal Inspection, Non Tender Respiratory: Chest Non Tender, No Accessory Muscle Use, No Respiratory Distress , Crackles, Decreased Breath Sounds, Wheezing Cardiovascular: Regular Rate, Rhythm, No Edema, No Gallop, No JVD, No Murmur, Normal Peripheral Pulses Gastrointestinal: Normal Bowel Sounds, No Organomegaly, No Pulsatile Mass, Non Tender, Soft Back: Normal Inspection, No CVA Tenderness, No Vertebral Tenderness Extremity: Normal Capillary Refill, Normal Inspection, Normal Range of Motion, Non Tender, No Calf Tenderness, No Pedal Edema Neurologic/Psychiatric: Alert, Depressed Affect, Disoriented Skin: Normal Color, Warm/Dry Lymphatic: No Adenopathy Results Results/Procedures Labs Laboratory Tests 10/21/18 08:40 Patient resulted labs reviewed. 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 Severe debility requiring [facility] Plan: Check levels of ammonia and Depakote Vanx and Zosyn Nebs Central Line Admission Status: Inpatient Order (span 2 midnights) Reason for Inpatient Admission: Severe pneumonia in SCP Diagnosis/Problems Diagnosis/Problems (1) Sepsis Status: Acute Qualifiers: Sepsis type: sepsis due to unspecified organism Qualified Codes: A41.9 - Sepsis, unspecified organism (2) Pneumonia Status: Acute Qualifiers: Pneumonia type: due to unspecified organism Laterality: right Lung location: lower lobe of lung Qualified Codes: J18.1 - Lobar pneumonia, unspecified organism (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 (4) Dementia Status: Chronic Qualifiers: Dementia type: associated with other underlying disease Dementia behavioral disturbance: without behavioral disturbance Qualified Codes: F02.80 - Dementia in other diseases classified elsewhere without behavioral disturbance (5) Depression Status: Chronic Qualifiers: Depression Type: unspecified Qualified Codes: F32.9 - Major depressive disorder, single episode, unspecified (6) Chronic pain Status: Chronic Qualifiers: Chronic pain type: chronic pain syndrome Qualified Codes: G89.4 - Chronic pain syndrome (7) GERD (gastroesophageal reflux disease) Status: Chronic Qualifiers: Esophagitis presence: without esophagitis Qualified Codes: K21.9 - Gastro- esophageal reflux disease without esophagitis (8) Seizure disorder Status: Chronic LETY TEJEDA DO Oct 21, 2018 12:47
--- NOTE | 2018-10-21 13:27 | Consultation ---
History of Present Illness History of Present Illness Patient Consulted On(siva/time) 10/21/18 13:21 Time Seen by Provider: 12:51 History of Present Illness Surgery asked to consult regarding Central Line placement. HPI per ED: This 51-year-old white male presents via paramedics with a change in mentation over the last 24 hours. The patient was largely unresponsive this morning precipitating his presentation to the emergency department. There is a limited amount of information available at this point but it would appear the patient has had no associated complaints of headache or stiff neck, chest pain or palpitations, shortness of breath or productive cough, vomiting, diarrhea, dysuria, or lateralizing or localizing neurologic complaints. When I spoke to pt assessing him for central line placement, he told me he had had them once or twice. He thinks they were put in right side of neck. In the ED they were only able to get a very small line in his finger. He denied taking blood thinners. Unable to obtain more of a history because pt drifts off to sleep and can't seem to answer most questions. Allergies and Home Medications Allergies Coded Allergies: morphine (Unverified Adverse Reaction, Unknown, 07/01/18) Home Medications Albuterol Sulfate 1 Puff Puff, 2 PUFF IH Q4H PRN for SHORTNESS OF BREATH, ( Reported) 1 PUFF = 90 MCG Amitriptyline HCl 25 Mg Tablet, 50 MG PO HS, (Reported) TAKES 2 (25MG) TABLETS Cetirizine HCl 10 Mg Tablet, 10 MG PO DAILY PRN for ALLERGIES, (Reported) Clonazepam 0.5 Mg Tablet, 0.5 MG PO DAILY, (Reported) Clonazepam 1 Mg Tablet, 1 MG PO HS, (Reported) Clonidine HCl 0.1 Mg Tablet, 0.1 MG PO BID, (Reported) Divalproex Sodium 500 Mg Tablet.dr, 1,500 MG PO BID, (Reported) TAKES 3 (500MG) TABLETS Docusate Sodium 100 Mg Capsule, 100 MG PO BID, (Reported) Fluticasone/Salmeterol 1 Each Blst.w.dev, 1 PUFF INH BID, (Reported) Furosemide 40 Mg Tablet, 40 MG PO DAILY, (Reported) Gabapentin 300 Mg Capsule, 300 MG PO TID, (Reported) Levetiracetam 500 Mg Tablet, 1,500 MG PO BID, (Reported) TAKES 3 (500MG) TABLETS Levofloxacin 750 Mg Tablet, 750 MG PO DAILY Prescribed by: VERONIQUE GARCIA on 07/05/18 1309 Magnesium Hydroxide 400 Mg/5 Ml Oral.susp, 30 ML PO DAILY PRN for CONSTIPATION- 7TH LINE, (Reported) Memantine HCl 5 Mg Tablet, 5 MG PO DAILY, (Reported) Menthol 118 Ml Gel..ml., TP HS, (Reported) APPLY TO BILATERAL ANKLES Naproxen 500 Mg Tablet, 500 MG PO Q12H PRN for PAIN-MILD, (Reported) Omeprazole 20 Mg Capsule.dr, 20 MG PO DAILY, (Reported) Oxybutynin Chloride 5 Mg Tab.er.24, 5 MG PO DAILY, (Reported) Oxycodone HCl/Acetaminophen 1 Each Tablet, 1 TAB PO Q6H PRN for PAIN-MODERATE, ( Reported) Potassium Chloride 20 Meq Tab.er.prt, 20 MEQ PO DAILY, (Reported) Patient Home Medication List Home Medication List Reviewed: Yes Past Eplmaal-Bojxtj-Dlwlfu Hx Patient Social History Alcohol Use: Denies Use Recreational Drug Use: No Drug of Choice: WEED Smoking Status: Unknown if Ever Smoked Type Used: Cigarettes Recent Foreign Travel: No (Unable to answer) Contact w/Someone Who Travel: No (Unable to answer) Recent Hopitalizations: No Immunizations Up To Date Tetanus Booster (TDap): Unknown Date of Influenza Vaccine: Jun 26, 2018 Seasonal Allergies Seasonal Allergies: No Surgeries History of Surgeries: Yes Surgeries: Brain Shunt Respiratory History of Respiratory Disorde: Yes Respiratory Disorders: Asthma, COPD Cardiovascular History of Cardiac Disorders: Yes Cardiac Disorders: Hypertension Neurological History of Neurological Disord: Yes Neurological Disorders: Dementia, Seizure Disorder, Vertigo Reproductive System Hx Reproductive Disorders: No Genitourinary History of Genitourinary Disor: No Gastrointestinal History of Gastrointestinal Di: Yes Gastrointestinal Disorders: Gastroesophageal Reflux Musculoskeletal History of Musculoskeletal Dis: Yes Musculoskeletal Disorders: Arthritis Endocrine History of Endocrine Disorders: No HEENT History of HEENT Disorders: No Cancer History of Cancer: No Psychosocial History of Psychiatric Problem: Yes Behavioral Health Disorders: Anxiety, Depression Integumentary History of Skin or Integumenta: No Blood Transfusions History of Blood Disorders: No Adverse Reaction to a Blood Tr: No Family Medical History Significant Family History: Cancer (father of cancer, couldn't tell me what type), Diabetes (father) Review of Systems-General ROS-Unable to Obtain: Pt cannot answer questions Physical Exam-General Problems Physical Exam Vital Signs Vital Signs - First Documented 10/21/18 08:25 Temp 98.8 Pulse 110 Resp 18 B/P (MAP) 129/98 (108) Pulse Ox 94 Capillary Refill : Less Than 3 Seconds General Appearance: WD/WN, mild distress, other (pt is somnolent) Eyes: Bilateral Eye PERRL, Bilateral Eye EOMI HEENT: pharynx normal; No scleral icterus (R), No scleral icterus (L), No pale conjunctivae (R), No pale conjunctivae (L) Neck: non-tender, supple; No thyromegaly Respiratory: chest non-tender, lungs clear, normal breath sounds, no respiratory distress, no accessory muscle use Cardiovascular: regular rate, rhythm, no edema Gastrointestinal: normal bowel sounds, non tender, soft, no organomegaly, no pulsatile mass, other (pt has large scar just above umbilicus, but is unable to tell me what it is from) Back: no CVA tenderness, no vertebral tenderness Extremities: no pedal edema, no calf tenderness, normal capillary refill 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; No aphasia, No facial droop; disoriented x 3 Skin: normal color, warm/dry Lymphatic: no adenopathy (neck, axilla or groin) Data Review Labs Laboratory Tests 10/21/18 08:40: White Blood Count 14.4H, Red Blood Count 5.37, Hemoglobin 16.4, Hematocrit 48, Mean Corpuscular Volume 90, Mean Corpuscular Hemoglobin 31, Mean Corpuscular Hemoglobin Concent 34, Red Cell Distribution Width 14.4, Platelet Count 176, Mean Platelet Volume 10.0, Neutrophils (%) (Auto) 73, Lymphocytes (%) (Auto) 10L , Monocytes (%) (Auto) 13H, Eosinophils (%) (Auto) 2, Basophils (%) (Auto) 2, Neutrophils # (Auto) 10.5H, Lymphocytes # (Auto) 1.4, Monocytes # (Auto) 1.9H, Eosinophils # (Auto) 0.3, Basophils # (Auto) 0.3H, Neutrophils % (Manual) 49, Lymphocytes % (Manual) 18, Monocytes % (Manual) 15, Eosinophils % (Manual) 1, Band Neutrophils 17, Blood Morphology Comment NORMAL, Sodium Level 139, Potassium Level 4.6, Chloride Level 100, Carbon Dioxide Level 24, Anion Gap 15H , Blood Urea Nitrogen 33H, Creatinine 1.04, Estimat Glomerular Filtration Rate > 60, BUN/Creatinine Ratio 32, Glucose Level 129H, Calcium Level 9.4, Corrected Calcium 9.7, Total Bilirubin 0.4, Aspartate Amino Transf (AST/SGOT) 69H, Alanine Aminotransferase (ALT/SGPT) 26, Alkaline Phosphatase 68, Troponin I < 0.028, Total Protein 7.6, Albumin 3.6, Lipase 10 10/21/18 09:08: Lactic Acid Level 1.66 10/21/18 10:09: Glucometer 173H Assessment/Plan Assessment/Plan Assessment/Plan Mental Status Changes Venous Insufficiency I assessed pt to make sure there were no contraindications to central line placement (i.e surgery in the neck, pacemakers or anticoagulation). He has no IV access and needs a line placed. Plan to place triple lumen catheter in RIJ with US guidance. Pt consented. Max medical management, does not appear to need any other type of surgical intervention at this time. JORDAN BRADFORD DO Oct 21, 2018 13:27
--- NOTE | 2018-10-21 13:29 | Progress Note-Post Operative ---
Post-Operative Progess Note Surgeon (s)/Exercise Instructor (s) Surgeon JORDAN BRADFORD DO Exercise Instructor: none Pre-Operative Diagnosis , mental status changes Post-Operative Diagnosis same Procedure & Operative Findings Date of Procedure 10/21/18 Procedure Performed/Findings RIJ TLC with US guidance Anesthesia Type local lidocaine Estimated Blood Loss Estimated blood loss (mL): scant Specimens/Packing Specimens Removed none JORDAN BRADFORD DO Oct 21, 2018 13:29
[2018-10-21] MEDS ORDERED: NON-FORMULARY MEDICATION 1 EA EA (Naproxen 500 MG) PO PRN (14:45)
[2018-10-21] MEDS ORDERED: MILK OF MAGNESIA 400 MG/5 ML 30 ML UDC PO PRN (14:45)
[2018-10-21] MEDS ORDERED: NON-FORMULARY MEDICATION 1 EA EA (Cetirizine HCl (Zyrtec) 10 MG) PO PRN (14:45)
[2018-10-21] MEDS ORDERED: oxyCODONE/APAP 7.5-325 MG (PERCOCET 7.5) TABLET PO PRN (14:45)
[2018-10-21] MEDS ORDERED: ALPRAZolam 0.25 MG (XANAX) TAB PO PRN (15:00)
[2018-10-21] MEDS ORDERED: ACETAMINOPHEN 500 MG TAB (TYLENOL) PO PRN (15:00)
[2018-10-21] MEDS ORDERED: MELATONIN 3 MG TABLET PO PRN (15:00)
[2018-10-21] MEDS ORDERED: CALCIUM CARBONATE 500 MG (TUMS) TAB.CHEW PO PRN (15:00)
[2018-10-21] MEDS ORDERED: fentaNYL INJECTION 100 MCG/2 ML AMP IVP PRN (15:00)
[2018-10-21] MEDS ORDERED: VANCOMYCIN INJECTION 1,000 MG in NS (IVPB) 250 ML IV SCH (15:00)
[2018-10-21] MEDS ORDERED: LOPERAMIDE 2 MG (IMODIUM) CAP PO PRN (15:00)
[2018-10-21] MEDS ORDERED: diphenhydrAMINE 25 MG TAB (BENADRYL) PO PRN (15:00)
[2018-10-21] MEDS ORDERED: guaiFENesin/CODEINE (ROBITUSSIN AC) 10ML UDC PO PRN (15:00)
[2018-10-21] MEDS ORDERED: DOCUSATE SODIUM 100 MG (COLACE) CAP PO PRN (15:00)
[2018-10-21] MEDS ORDERED: IBUPROFEN TABLET 200 MG TAB PO PRN (15:00)
[2018-10-21] MEDS ORDERED: LORATADINE (CLARITIN) 10 MG TAB PO PRN (15:15)
--- NOTE | 2018-10-21 15:21 | NUR ---
CR 1.04; CR CL > 60, WT 76 KG; VANCO 1500 MG IV BOLUS, THEN 1000 MG IV Q12H; TROUGH AFTER 4TH DOSE
[2018-10-21] MEDS ORDERED: VANCOMYCIN 1500 MG/NS 500 ML IVPB IV NR ×2 (15:30)
[2018-10-21 15:42] LABS: VALPROIC ACID 84.1 UG/ML (50.0-100.0)
[2018-10-21 16:45] VITALS: BP 134/76
[2018-10-21] MEDS: RT-ALBUTEROL/IPRATROPIUM 3 ML (DUONEB) VIAL IH SCH ×2 (17:21→20:27)
[2018-10-21] MEDS: PIPERACILLIN/TAZO 4.5 GM/NS 100 ML IV SCH ×2 (17:30)
--- NOTE | 2018-10-21 19:41 | NUR ---
pt sister David called to check on this pt, sister states that Ai Chao is pt DPOA [phone]. David attempted to removed password off this pt, this rn informed her that for privacy protection the password should be kept, she then agreed.
[2018-10-21] MEDS: RT-ADVAIR HFA 115/21 MCG PER PUFF IH SCH (20:28)
[2018-10-21 20:44] VITALS: BP 139/82
[2018-10-21] MEDS ORDERED: LEVETIRACETAM 1500 MG PO SCH (21:00)
[2018-10-21] MEDS ORDERED: NON-FORMULARY MEDICATION 1 EA EA (Fluticasone/Salmeterol (Advair 500-50 Diskus) 1 PUFF) INH SCH (21:00)
[2018-10-21] MEDS ORDERED: NON-FORMULARY MEDICATION 1 EA EA (Clonazepam 1 MG) PO SCH (21:00)
[2018-10-21] MEDS: POLYETHYLENE GLYCOL 17 GM (MIRALAX) PACK PO SCH (21:05)
[2018-10-21] MEDS: DOCUSATE SODIUM 100 MG (COLACE) CAP PO SCH (21:05)
[2018-10-21] MEDS: GABAPENTIN 300 MG (NEURONTIN) CAP PO SCH (21:06)
[2018-10-21] MEDS: cloNIDine 0.1 MG (CATAPRES) TAB PO SCH (21:06)
[2018-10-21] MEDS: LEVETIRACETAM 500 MG (KEPPRA) TAB PO SCH (21:06)
[2018-10-21] MEDS: AMITRIPTYLINE 25 MG (ELAVIL) TAB PO SCH (21:06)
[2018-10-21] MEDS: clonazePAM 1 MG (KlonoPIN) TAB PO SCH (21:06)
[2018-10-21] MEDS: DIVALPROEX 500 MG DELAYED RELEASE (DEPAKOTE) TAB PO SCH (21:07)
[2018-10-22] VITALS: BP 127/76
--- NOTE | 2018-10-22 01:14 | OPERATIVE REPORT ---
DATE OF SERVICE: 10/21/2018 PREOPERATIVE DIAGNOSES: 1. Mental status change: 2. Venous insufficiency. POSTOPERATIVE DIAGNOSES: 1. Mental status change: 2. Venous insufficiency. PROCEDURE: Insertion of triple lumen catheter, right IJ with ultrasound guidance. SURGEON: Abdi Harris DO. SAIL LAY OUT WORKER: None. ANESTHESIA: Local lidocaine. BLOOD LOSS: Scant. FLUIDS: None. SPECIMENS: None. INDICATION FOR PROCEDURE: The patient is a 53-year-old male who came in with mental status changes. They were unable to get IV access. He had a small catheter in his finger. Needed a central line. FINDINGS: The patient had a central line placed to right internal jugular vein with ultrasound guidance. PROCEDURE NOTE: After informed consent was obtained, the patient in his bed was sterilely prepped and draped in normal fashion. Local lidocaine was used to infiltrate the skin in the right neck and then under ultrasound guidance, an 18-gauge fine needle was advanced with negative inspiration and watched to enter the IJ. Good flash of blood, removed the syringe then placed a guidewire down the needle using Seldinger technique, it went in easily. Removed the needle, made a stab incision along the guidewire with an #11 blade and then over the guidewire placed a dilator using Seldinger technique, it went in easily. Removed this and then over the guidewire placed the triple lumen catheter using Seldinger technique, it went in easily, At this point, then sutured this in place with a 3-0 silk suture. Put locking ports on all 3 ports and then easily aspirated, got a good flash of blood and then flushed in all 3 ports. Area was then cleaned and dried. A Biopatch as well as sterile dressing placed. The patient tolerated the procedure. Job ID: [id number] DocumentID: [id number] Dictated Date: 10/21/2018 13:32:01 Needle Polisher Date: 10/22/2018 01:13:48 Dictated By: ABDI HARRIS DO
[2018-10-22] MEDS: PIPERACILLIN/TAZO 4.5 GM/NS 100 ML IV SCH ×6 (01:40→16:52)
[2018-10-22 04:33] VITALS: BP 112/76
[2018-10-22] MEDS: VANCOMYCIN 1 GM/NS 250 ML IVPB IV SCH ×4 (04:39→15:37)
[2018-10-22 04:48] LABS: BASOPHILS # (AUTO) 0.3 10^3/uL (0.0-0.1); BASOPHILS % (AUTO) 3 % (0-10); EOSINOPHILS # (AUTO) 0.2 10^3/uL (0.0-0.3); EOSINOPHILS % (AUTO) 2 % (0-10); HEMATOCRIT 41 % (40-54); HEMOGLOBIN 13.6 G/DL (13.3-17.7); LYMPHOCYTES % (AUTO) 19 % (12-44); MEAN CORPUSCULAR HEMOGLOBIN 31 PG (25-34); MEAN CORPUSCULAR HGB CONC 34 G/DL (32-36); MEAN CORPUSCULAR VOLUME 91 FL (80-99); MEAN PLATELET VOLUME 9.5 FL (7.4-10.4); MONOCYTES # (AUTO) 1.5 X 10^3 (0.0-1.0); MONOCYTES % (AUTO) 15 % (0-12); NEUTROPHILS # (AUTO) 6.4 X 10^3 (1.8-7.8); NEUTROPHILS % (AUTO) 61 % (42-75); PLATELET COUNT 143 10^3/uL (130-400); RED CELL DISTRIBUTION WIDTH 14.2 % (10.0-14.5); WHITE BLOOD COUNT 10.5 10^3/uL (4.3-11.0)
[2018-10-22 05:07] LABS: ALANINE AMINOTRANSFERASE 19 U/L (0-55); ALKALINE PHOSPHATASE 51 U/L (40-136); BILIRUBIN,TOTAL 0.4 MG/DL (0.1-1.0); BUN/CREATININE RATIO 32; CARBON DIOXIDE 29 MMOL/L (21-32); CHLORIDE 102 MMOL/L (98-107); CREATININE SERUM 1.03 MG/DL (0.60-1.30); GFR ESTIMATED > 60; GLUCOSE 98 MG/DL (70-105); POTASSIUM 3.8 MMOL/L (3.6-5.0); SODIUM 142 MMOL/L (135-145); TOTAL PROTEIN 6.6 GM/DL (6.4-8.2)
[2018-10-22] MEDS: PANTOPRAZOLE 20 MG TABLET (PROTONIX) PO SCH (05:53)
[2018-10-22] MEDS: KCL 20 MEQ TAB (K-DUR) PO SCH (05:53)
[2018-10-22 07:45] VITALS: BP 116/79
[2018-10-22] MEDS: RT-ALBUTEROL/IPRATROPIUM 3 ML (DUONEB) VIAL IH SCH ×4 (07:58→23:39)
[2018-10-22] MEDS: RT-ADVAIR HFA 115/21 MCG PER PUFF IH SCH ×2 (07:58→23:39)
[2018-10-22] MEDS ORDERED: OMEPRAZOLE 20 MG (PriLOSEC) CAP NON-FORMULARY PO SCH (09:00)
[2018-10-22] MEDS ORDERED: OXYBUTYNIN ER 5 MG (DITROPAN XL) TAB NON-FORMULARY PO SCH (09:00)
[2018-10-22] MEDS ORDERED: NON-FORMULARY MEDICATION 1 EA EA (Memantine HCl 5 MG) PO SCH (09:00)
--- NOTE | 2018-10-22 09:16 | Diagnostic Imaging Report ---
Indication: Followup pneumonia. Comparison: 10/21/2018 Findings: Single frontal radiographic view of the chest was obtained and demonstrates low inspiratory volumes with bibasilar atelectasis. There is also area of more confluent alveolar opacity within the right base which likely corresponds to infiltrates seen on previous CT. No large effusion or pneumothorax on either side. Cardiac silhouette and pulmonary vasculature are within normal limits. Right-sided radiopaque tubing is again noted. Impression: 1. Stable exam of the chest showing low lung volumes with right basilar infiltrate superimposed on by basilar atelectasis. Dictated by: Dictated on workstation # [id number]
[2018-10-22] MEDS: DOCUSATE SODIUM 100 MG (COLACE) CAP PO SCH ×2 (09:34→22:01)
[2018-10-22] MEDS: DIVALPROEX 500 MG DELAYED RELEASE (DEPAKOTE) TAB PO SCH ×2 (09:34→22:00)
[2018-10-22] MEDS: FUROSEMIDE 40 MG (LASIX) TAB PO SCH (09:34)
[2018-10-22] MEDS: GABAPENTIN 300 MG (NEURONTIN) CAP PO SCH ×3 (09:34→21:58)
[2018-10-22] MEDS: OXYBUTYNIN (DITROPAN) 5 MG TAB PO SCH ×2 (09:34→21:58)
[2018-10-22] MEDS: LEVETIRACETAM 500 MG (KEPPRA) TAB PO SCH ×2 (09:35→21:59)
[2018-10-22] MEDS: cloNIDine 0.1 MG (CATAPRES) TAB PO SCH ×2 (09:35→21:59)
[2018-10-22] MEDS: clonazePAM 0.5 MG (KlonoPIN) TAB PO SCH (09:35)
[2018-10-22] MEDS: MEMANTINE 5 MG (NAMENDA) TABLET PO SCH (09:35)
[2018-10-22] MEDS: POLYETHYLENE GLYCOL 17 GM (MIRALAX) PACK PO SCH ×2 (09:47→22:01)
[2018-10-22 11:35] VITALS: BP 113/74
--- OUTSIDE RECORDS SUMMARY | 2018-10-22 11:46 | XMS REPORT ---
Author Author ESTEPHANIA IVAN [facility] Address [address] [place] [address] Care Team Providers Care W[employer]arel Folder Name Role Phone ESTEPHANIA IVAN Unavailable PROBLEMS Type Condition ICD9-CM Code JRI97-WU Code Onset Dates Condition Status SNOMED Code Problem Major depressive disorder, recurrent, moderate F33.1 Active 43207625 Problem Sleep apnea, unspecified type G47.30 Active 87719265 Problem Degenerative brain disorder G31.9 Active 07976491 Problem Gastroesophageal reflux disease without esophagitis K21.9 Active 044168931 Problem Gait disturbance R26.9 Active 74699288 Problem Depressive disorder, not elsewhere classified F32.9 Active 65764195 Problem Other chronic pain G89.29 Active 08924983 Problem History of brain shunt Z98.2 Active 161945066 Problem PTSD (post-traumatic stress disorder) F43.10 Active 67803522 Problem Anxiety F41.9 Active 45070947 Problem Unsteady gait R26.81 Active 77634225 Problem Mood disorder F39 Active 33763375 Problem Unspecified mental disorder due to known physiological condition F09 Active 964659863 Problem Other chronic pain G89.29 Active 58424138 Problem Dementia with behavioral disturbance, unspecified dementia type F03.91 Active [id number] ALLERGIES No Information ENCOUNTERS Encounter Location Date Diagnosis [facility] [address] [facility] [id number] [address] 17 Jul, 2018 PTSD (post-traumatic stress disorder) F43.10 [facility] [address] [id number] [address] 12 Jul, 2018 Tobacco abuse Z72.0 [facility] [address] [id number] Jun, [facility] [address] [id number] [address] 64[address] Jun, PTSD (post-traumatic stress disorder) F43.10 [facility] [address] [place] [address] 32838- 7535 Jun, [facility] [id number] [place] [address] 29506- 4474 Jun, [facility] [address] [id number] Jun, Unspecified mental disorder due to known physiological condition F09 ; History of brain shunt Z98.2 ; PTSD (post-traumatic stress disorder) F43.10 and Mood disorder F39 [facility] [id number] [place] [address] 89618- 4196 Jun, [facility] [id number] [place] [address] 97312- 6921 Jun, [facility] [id number] [place] [address] 91088- 0693 Jun, Gastroesophageal reflux disease without esophagitis K21.9 [facility] [id number] [place] [address] 20581- 4690 May, PTSD (post-traumatic stress disorder) F43.[address] [facility] [address] [id number] May, Gait disturbance R26.9 and Callus of foot L84 [facility] [address] [place] [address] 05519- 9134 24 Apr, 2018 PTSD (post-traumatic stress disorder) F43.10 [facility] [address] [address] 7[address] Apr, [facility] [id number] [place] [address] 24493- 9804 Apr, History of brain shunt Z98.2 [facility] [address] [address] 0298 10 Apr, 2018 PTSD (post-traumatic stress disorder) F43.10 [facility] [facility] [address] [place] [address] 45439- 5508 07 Apr, 2018 History of brain shunt Z98.2 [facility] [id number] [place] [address] 17573- 6106 04 Apr, 2018 History of brain shunt Z98.[address] [facility] [address] [id number] Mar, History of brain shunt Z98.2 ; Depressive disorder, not elsewhere classified F32.9 ; Degenerative brain disorder G31.9 ; Unsteady gait R26.81 ; Other chronic pain G89.29 and Daily headache R51 [facility] [id number] [place] [address] 06766- 1859 Mar, PTSD (post-traumatic stress disorder) F43.10 [facility] [id number] [place] [address] 35031- 2238 Mar, [facility] [id number] [place] [address] 39604- 5339 Feb, PTSD (post-traumatic stress disorder) F43.10 [facility] [id number] [place] [address] 84926- 0442 Feb, PTSD (post-traumatic stress disorder) F43.10 [facility] [id number] [place] [address] 07269- 3652 Feb, Other chronic pain G89.29 and Pain in right knee M25.561 [facility] [id number] [place] [address] 30463- 9268 Feb, PTSD (post-traumatic stress disorder) F43.10 [facility] [id number] [place] [address] 94832- 3080 Feb, [facility] [address] [id number] Jan, Dementia with behavioral disturbance, unspecified dementia type F03.91 ; Other chronic pain G89.29 and Plantar fasciitis M72.[address] [facility] [address] [place] [id number] Jan, Daily headache R51 ; History of brain shunt Z98.2 ; Plantar fasciitis of left foot M72.2 ; Pain in right knee M25.561 and Pain in left knee M25.562 [facility] [address] [address] 7588 Jan, [facility] [id number] [place] [address] 74079- 3860 Jan, Pain in right knee M25.561 [facility] [id number] [place] [address] 67314- 0673 Jan, [facility] [id number] [place] [address] 64407- 5102 Jan, [facility] [id number] [place] [address] 94567- 4433 Jan, [facility] [id number] [place] [address] 04995- 2313 December, Other chronic pain G89.29 [facility] [address] [id number] December, Pain in left knee M25.562 ; Pain in right leg M79.604 ; Other chronic pain G89.29 ; Localized edema R60.0 and PTSD (post-traumatic stress disorder) F43.10 [facility] [address] [address] 85[address] December, [facility] [address], [place] [address]- 2972 December, PTSD (post-traumatic stress disorder) F43.10 [facility] [address], [place] [address]- 5332 December, [facility] [address], [place] [address] 3833 December, [facility] [id number] [place] [address] 24152- 2171 December, Depressive disorder, not elsewhere classified F32.9 and Cognitive change R41.89 [facility] [address] [place] [address] 83125- 7612 Nov, Major depressive disorder, recurrent, moderate F33.1 [facility] [address], [place] [address] 0371 Nov, [facility] [id number] [place] [address] 85409- 7413 Nov, [facility] [address] [place] [address] 40245- 4212 Nov, [facility] [address] [place] [address] 62205- 2507 Nov, [facility] [address] [place] [address] 61011- 5404 Nov, Mood disorder F39 [facility] [address] [place] [address] 26897- 0719 Nov, Depressive disorder, not elsewhere classified F32.9 and Cognitive change R41.89 [facility] [address] [place] [address] 59086- 6257 Nov, [facility] [address], [place] [address] 3690 Nov, [facility] [address] [id number] Oct, Tear of skin of plantar aspect of right foot, initial encounter S91.311A [facility] [address] [address]- 8783 Oct, [facility] [address] [place] [address] 17989- 8825 14 Oct, 2017 [facility] [id number] [id number] Oct, [facility] [id number] [id number] Oct, [facility] [id number] [id number] Sep, [facility] [id number] [id number] Sep, [facility] [id number] [address] Sep, [facility] [id number] [id number] Sep, [facility] [address], [place] [address]- 9356 Sep, [facility] [address], [place] [address]- 4606 Sep, Other chronic pain G89.29 and Pain in left knee M25.562 [facility] [address], [place] [address]- 5326 Sep, [facility] [address] [address] Sep, Plantar fasciitis of left foot M72.2 and Pain in right knee M25.561 [facility] [id number] [id number] Aug, [facility] [address], [place] [address]- 7202 Aug, [facility] [id number], [place] [address]- 4366 Aug, [facility] [address], [place] [address]- 6369 Aug, Chronic daily headache R51 [facility] [address], [place] [address]- 5456 Aug, [facility] [address] [address] Aug, Edema, unspecified type R60.9 ; Weight gain R63.5 and Sleep apnea, unspecified type G47.30 [facility] [address] [place] [address] Jul, Acute pain of left knee M25.562 and Plantar fasciitis of left foot M72.2 [facility] [address] [facility] [id number], [place] [address] 2546 Jul, [facility] [address] [place] [address] Jul, Plantar fasciitis of left foot M72.2 and Chronic daily headache R51 [facility] [address] [id number] [address] Jul, [facility] [id number] [place] [id number] Jun, [facility] [address] [facility] [id number], [place] [address] 2546 Jun, [facility] [id number] [address] Jun, [facility] [address] [id number][place] [address] Jun, [facility] [id number] [place] [address] [id number] May, [facility] [address] [id number] [id number] May, [facility] [id number] [address]- 2546 May, Stress incontinence of urine N39.3 [facility] [address] [id number][place] [address] May, [facility] [id number] May, Encounter for examination for admission to care home Z02.2 ; Toxoplasmosis B58.9 ; Seizures R56.9 ; Major depressive disorder, recurrent, moderate F33.1 ; Degenerative brain disorder G31.9 and Unsteady gait R26.81 [facility] [address] [id number] [place] [address]- 6275 May, [facility] [id number] [place] [address], [place] [address]- 0015 May, Mood disorder F39 [facility] [address] [id number] [address]- 7906 May, [facility] [place] [facility] [address] [facility] [id number] [place] [address] 02546- 9595 Apr, [facility] [id number] [place] [address], [place] [address]- 1010 Mar, [facility] [id number] [place] [address] 68587- 6585 Mar, [facility] [id number] [place] [address] 48128- 0412 Mar, [facility] [id number] [place] [address] 38975- 6291 Mar, [facility] [id number], [place] [address]- 5936 Mar, [facility] [address], [place] [address]- 8724 Mar, Stress incontinence of urine N39.3 [facility] [address] [id number] [id number] Mar, [facility] [place] [facility] [address] [facility] [id number], [place] [address]- 7794 Feb, [facility] [address] [facility] [id number], [place] [address]- 2337 Feb, [facility] [address] [facility] [id number], [place] [address]- 7765 Feb, [facility] [id number], [place] [address]- 9715 Feb, [facility] [place] [facility] [address] [facility] [id number] [place] [address]- 4277 Feb, [facility] [address] [facility] [id number] [place] [address]- 4071 Feb, [facility] [address] [facility] [id number] [place] [address]- 0287 Feb, [facility] [address] [facility] [id number] [place] [address]- 5251 Jan, [facility] [address] [facility] [id number] [place] [address]- 2841 Jan, [facility] [address] [facility] [id number] [place] [address]- 4279 Jan, [facility] [address] [facility] [id number] [place] [address]- 5985 Jan, [facility] [address] [place] [address]- 9027 Jan, [facility] [address] [facility] [id number], [place] [address]- 9689 Jan, [facility] [address] [address]- 6542 Jan, [facility] [address] [id number], [place] [address]- 7579 Jan, General weakness R53.1 and Dementia with behavioral disturbance, unspecified dementia type F03.91 [facility] [address] [facility] [id number], [place] [address]- 6891 December, [facility] [address] [facility] [id number], [place] [address]- 8099 December, Other chronic pain G89.29 [facility] [address] [facility] [id number] [place] [address]- 9199 December, [facility] [address] [facility] [id number], [place] [address]- 7494 December, Unsteady gait R26.81 ; Generalized weakness R53.1 ; Unspecified mental disorder due to known physiological condition F09 and Generalized headaches R51 [facility] [id number] [place] [address] 71763- 9498 December, [facility] [id number] [place] [address] 24132- 2121 Nov, Anxiety F41.9 [facility] [id number] [place] [address] 78776- 9494 Nov, Mood disorder F39 [facility] [id number] [place] [address] 31333- 0801 Oct, [facility] [id number] [place] [address] 34049- 2565 Oct, Anxiety F41.9 [facility] [id number] [place] [address] 40793- 3929 Oct, Other chronic pain G89.29 [facility] [id number] [place] [address] 08919- 0992 Sep, Other chronic pain G89.29 ; Pain in left knee M25.562 ; Pain in right knee M25.561 and Anxiety F41.9 [facility] [id number] [place] [address] 25822- 6465 Sep, MDD (major depressive disorder), recurrent episode, mild F33.0 ; Degenerative brain disorder G31.9 and Other assisted (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 Z79.899 [facility] [id number] [place] [address] 48702- 6784 Sep, [facility] [id number] [place] [address] 76508- 6837 Sep, [facility] [id number] [place] [address] 75951- 8120 Sep, Mood disorder F39 ; Pain of left leg M79.605 and Pain in right leg M79.604 [facility] [address], [place] [address] 2546 14 Sep, 2016 Seizures R56.9 [facility] [address] [place] [address] 04414 2546 08 Sep, 2016 [facility] [address] [place] [address] 78664 2546 Sep, [facility] [address] [place] [address] 02281 2546 Sep, [facility] [address] [place] [address] 07778 2546 Aug, Bronchitis J40 [facility] [id number] [place] [address] 22410 2546 Aug, Bronchitis J40 and Encounter for drug screening Z02.83 [facility] [id number] [place] [address] 81886 2546 Aug, [facility] [address] [place] [address] 21908 2546 Aug, Seizures R56.9 [facility] [address] [place] [address] 04914 2546 Aug, Seizures R56.9 [facility] [address] [place] [address] 26928 2546 Aug, Major depressive disorder, recurrent, moderate F33.1 and Seizures R56.9 [facility] [address], [place] [address] 2546 Aug, [facility] [address] [place] [address] 10665 2546 Aug, [facility] [address] [place] [address] 26624 2546 Aug, Major depressive disorder, recurrent, moderate F33.1 and Seizures R56.9 [facility] [address] [id number] [address]- 0373 Jul, Major depressive disorder, recurrent, moderate F33.1 and Degenerative brain disorder G31.9 [place] [address] [place] [address]- 8251 Jul, Seizures R56.9 [place] [address] [place] [address] 56675- 8791 Apr, [facility] [id number] [place] [address] 69282- 9516 Apr, Major depressive disorder, recurrent, moderate F33.1 ; Anxiety F41.9 and Degenerative brain disorder G31.9 [place] [facility] [id number] [place] [address] 61138- 1891 Apr, Mood disorder F39 [facility] [facility] [address] [place] [address] 91616- 9596 Apr, Arthritis M19.90 [facility] [id number] [place] [address] 59696- 7694 Mar, Arthritis M19.90 ; Degenerative brain disorder G31.9 and Nonintractable generalized idiopathic epilepsy without status epilepticus G40.309 [place] [facility] [address] [place] [address] 69834- 5911 Feb, IMMUNIZATIONS No Known Immunizations SOCIAL HISTORY Never Assessed REASON FOR VISIT senior care Narc Refill PLAN OF CARE VITAL SIGNS MEDICATIONS [...] Surgical History 27 brain surgeries including shunt, [place] Surgical History neck fusion 09/26, 09/28 Surgical History right hand surgery Hospitalization History surgeries Hospitalization History seizures 12/2015
--- OUTSIDE RECORDS SUMMARY | 2018-10-22 11:47 | XMS REPORT ---
Author Author ESTEPHANIA IVAN Organization [facility] Address [address] [place] [address] Care Team Providers Care Lightning Rod Erector Name Role Phone ESTEPHANIA IVAN Unavailable PROBLEMS Type Condition ICD9-CM Code MPO11-UV Code Onset Dates Condition Status SNOMED Code Problem Major depressive disorder, recurrent, moderate F33.1 Active 20162896 Problem Sleep apnea, unspecified type G47.30 Active 24945324 Problem Degenerative brain disorder G31.9 Active 81566217 Problem Gastroesophageal reflux disease without esophagitis K21.9 Active 284897149 Problem Gait disturbance R26.9 Active 10348231 Problem Depressive disorder, not elsewhere classified F32.9 Active 98668047 Problem Other chronic pain G89.29 Active 46489571 Problem History of brain shunt Z98.2 Active 649548494 Problem PTSD (post-traumatic stress disorder) F43.10 Active 53790274 Problem Anxiety F41.9 Active 12346936 Problem Unsteady gait R26.81 Active 74905734 Problem Mood disorder F39 Active 55226698 Problem Unspecified mental disorder due to known physiological condition F09 Active 485339284 Problem Other chronic pain G89.29 Active 66829939 Problem Dementia with behavioral disturbance, unspecified dementia type F03.91 Active [id number] ALLERGIES No Information ENCOUNTERS Encounter Location Date Diagnosis [place] [id number] [address] 12 Jul, 2018 [facility] [address] [id number] Jun, [place] [id number], [place] [address] 16 Jun, 2018 PTSD (post-traumatic stress disorder) F43.10 [place] [id number], [place] [address] Jun, [facility] [id number] [place] [address] 30850- 2660 Jun, [facility] [address] [id number] Jun, Unspecified mental disorder due to known physiological condition F09 ; History of brain shunt Z98.2 ; PTSD (post-traumatic stress disorder) F43.10 and Mood disorder F39 [place] [id number] [place] [address] 91798- 9319 Jun, [place] [id number] [place] [address] 60128- 9164 Jun, [place] [id number] [place] [address] 377088- 6205 Jun, Gastroesophageal reflux disease without esophagitis K21.9 [place] [id number] [place] [address] 50384- 0822 May, PTSD (post-traumatic stress disorder) F43.10 [facility] [address] [id number] May, Gait disturbance R26.9 and Callus of foot L84 [place] [id number] [place] [address] 62659- 0883 24 Apr, 2018 PTSD (post-traumatic stress disorder) F43.10 [place] [address], [place] [address] Apr, [facility] [id number] [place] [address] 30034- 4080 Apr, History of brain shunt Z98.2 [place] [id number] [place] [address] 56548- 5091 Apr, PTSD (post-traumatic stress disorder) F43.10 [place] [address], [place] [address] 07 Apr, 2018 History of brain shunt Z98.2 [place] [address] [place] [address] 10251- 2665 Apr, History of brain shunt Z98.[address] [facility] [address] [id number] Mar, History of brain shunt Z98.2 ; Depressive disorder, not elsewhere classified F32.9 ; Degenerative brain disorder G31.9 ; Unsteady gait R26.81 ; Other chronic pain G89.29 and Daily headache R51 [place] [id number] [place] [address] 49590- 7701 Mar, PTSD (post-traumatic stress disorder) F43.10 [place] [id number] [place] [address] 98479- 6920 Mar, [place] [id number] [place] [address] 63436- 5774 Feb, PTSD (post-traumatic stress disorder) F43.10 [place] [id number] [place] [address] 56720- 4175 Feb, PTSD (post-traumatic stress disorder) F43.10 [place] [id number] [place] [address] 26269- 5510 Feb, Other chronic pain G89.29 and Pain in right knee M25.561 [place] [id number] [place] [address] 90706- 7943 Feb, PTSD (post-traumatic stress disorder) F43.10 [place] [id number] [place] [address] 59948- 5149 Feb, [facility] [address] [place] [id number] Jan, Dementia with behavioral disturbance, unspecified dementia type F03.91 ; Other chronic pain G89.29 and Plantar fasciitis M72.2 [facility] [address] [place] [id number] Jan, Daily headache R51 ; History of brain shunt Z98.2 ; Plantar fasciitis of left foot M72.2 ; Pain in right knee M25.561 and Pain in left knee M25.562 [facility] [address], [place] [address] Jan, [facility] [address], [place] [address] 3[address] Jan, Pain in right knee M25.561 [facility] [address], [place] [address] 37[address] 05 Jan, 2018 [facility] [address], [place] [address] 6427 Jan, [facility] [id number] [place] [address] 03280- 7530 Jan, [facility] [address], [place] [address] 7[address] December, Other chronic pain G89.29 [facility] [address] [id number] December, Pain in left knee M25.562 ; Pain in right leg M79.604 ; Other chronic pain G89.29 ; Localized edema R60.0 and PTSD (post-traumatic stress disorder) F43.10 [facility] [address], [place] [address] December, [facility] [address], [place] [address] 0581 December, PTSD (post-traumatic stress disorder) F43.10 [facility] [address], [place] [address] 2[address] December, [facility] [address], [place] [address] 3[address] December, [facility] [address], [place] [address] 8939 December, Depressive disorder, not elsewhere classified F32.9 and Cognitive change R41.89 [facility] [id number], [place] [address] 1621 30 Nov, 2017 Major depressive disorder, recurrent, moderate F33.1 [facility] [address] [place] [address] 49289- 1048 Nov, [facility] [address] [place] [address] 83890- 3577 Nov, [facility] [id number] [place] [address] 65766- 0207 Nov, [facility] [id number] [place] [address] 91494- 8967 Nov, [facility] [id number] [place] [address] 86554- 9760 Nov, Mood disorder F39 [facility] [id number] [place] [address] 61423- 3927 Nov, Depressive disorder, not elsewhere classified F32.9 and Cognitive change R41.89 [facility] [id number] [place] [address] 27561- 5339 Nov, [facility] [address] [place] [address] 85214- 0478 Nov, [facility] [address] [address] Oct, Tear of skin of plantar aspect of right foot, initial encounter S91.311A [facility] [address], [place] [address] 2077 Oct, [facility] [id number] [address] Oct, [facility] [id number] [place] [address] [id number] Oct, [facility] [id number] [address] Oct, [facility] [id number] [place] [id number] Sep, [facility] [id number] [address] Sep, [facility] [id number] [address] Sep, [facility] [id number] [address] Sep, [facility] [address] [place] [address] 47341- 2456 Sep, [facility] [address], [place] [address] 4730 Sep, Other chronic pain G89.29 and Pain in left knee M25.562 [facility] [address] [place] [address] 016324- 0556 Sep, [facility] [address] [place] [address] Sep, Plantar fasciitis of left foot M72.2 and Pain in right knee M25.561 [facility] [id number] [id number] Aug, [facility] [address] [address] 8656 Aug, [facility] [address], [place] [address]- 5556 Aug, [facility] [address] [address]75 Aug, Chronic daily headache R51 [facility] [id number], [place] [address]- 8736 Aug, [facility] [address] [address] Aug, Edema, unspecified type R60.9 ; Weight gain R63.5 and Sleep apnea, unspecified type G47.30 [facility] [address] [place] [id number] Jul, Acute pain of left knee M25.562 and Plantar fasciitis of left foot M72.2 [facility] [address] [facility] [id number] [address] Jul, [facility] [id number] Jul, Plantar fasciitis of left foot M72.2 and Chronic daily headache R51 [facility] [address] [id number] [address] Jul, [facility] [address] [id number] [address] Jun, [facility] [id number], [place] [address] 2546 Jun, [facility] [id number] [address] Jun, [facility] [id number] [address] Jun, [facility] [address] [id number] [address] May, [facility] [id number] [place] [address] [id number] May, [facility] [id number], [place] [address]- 0626 May, Stress incontinence of urine N39.3 [facility] [id number] [id number] May, [facility] [id number] May, Encounter for examination for admission to assisted Z02.2 ; Toxoplasmosis B58.9 ; Seizures R56.9 ; Major depressive disorder, recurrent, moderate F33.1 ; Degenerative brain disorder G31.9 and Unsteady gait R26.81 [facility] [id number], [place] [address]- 6036 May, [facility] [address] [facility] [id number] [place] [address]- 1754 May, Mood disorder F39 [facility] [place] [facility] [address] [id number] [place] [address]- 8466 May, [facility] [place] [facility] [address] [id number] [place] [address]- 5384 Apr, [facility] [place] [facility] [address] [id number] [place] [address]- 4275 Mar, [facility] [place] [facility] [address] [id number] [place] [address]- 3931 Mar, [facility] [place] [facility] [address] [id number] [place] [address]- 4309 Mar, [facility] [place] [facility] [address] [facility] [id number] [place] [address]- 7780 Mar, [facility] [place] [facility] [id number] [place] [address]- 4669 Mar, [facility] [place] [facility] [address] [facility] [id number], [place] [address]- 1659 Mar, Stress incontinence of urine N39.3 [facility] [address] [id number] [address] Mar, [facility] [place] [facility] [address] [facility] [id number], [place] [address]- 6032 Feb, [facility] [place] [facility] [address] [id number], [place] [address]- 3858 Feb, [facility] [place] [facility] [address] [facility] [id number], [place] [address]- 4939 Feb, [facility] [place] [facility] [address] [facility] [id number], [place] [address]- 1251 Feb, [facility] [place] [facility] [address] [facility] [id number], [place] [address]- 5756 Feb, [facility] [place] [facility] [address] [facility] [id number], [place] [address]- 3136 Feb, [facility] [address], [place] [address]- 8016 Feb, [facility] [address], [place] [address]- 5567 Jan, [facility] [address], [place] [address]- 4665 Jan, [facility] [address], [place] [address]- 1209 Jan, [facility] [address], [place] [address]- 0899 Jan, [facility] [address], [place] [address]- 6132 Jan, [facility] [address], [place] [address]- 4671 Jan, [facility] [address], [place] [address]- 1968 Jan, [facility] [address], [place] [address]- 8305 Jan, General weakness R53.1 and Dementia with behavioral disturbance, unspecified dementia type F03.91 [facility] [address], [place] [address]- 6921 December, [facility] [address], [place] [address]- 8068 December, Other chronic pain G89.29 [facility] [address], [place] [address]- 9465 December, [facility] [address], [place] [address]- 5738 December, Unsteady gait R26.81 ; Generalized weakness R53.1 ; Unspecified mental disorder due to known physiological condition F09 and Generalized headaches R51 [facility] [id number], [place] [address]- 6473 December, [facility] [id number] [place] [address] 16624- 6488 Nov, Anxiety F41.9 [facility] [id number] [place] [address] 16094- 7749 Nov, Mood disorder F39 [facility] [id number] [place] [address] 67523- 3881 Oct, [facility] [id number] [place] [address] 43935- 3890 Oct, Anxiety F41.9 [facility] [id number] [place] [address] 20847- 6286 Oct, Other chronic pain G89.29 [facility] [id number] [place] [address] 30280- 5814 Sep, Other chronic pain G89.29 ; Pain in left knee M25.562 ; Pain in right knee M25.561 and Anxiety F41.9 [facility] [address] [place] [address] 27912- 2891 Sep, MDD (major depressive disorder), recurrent episode, mild F33.0 ; Degenerative brain disorder G31.9 and 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 terminal clerk (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 Z79.899 [facility] [id number] [place] [address] 04814- 6647 Sep, [facility] [address] [place] [address] 57014- 1164 Sep, [facility] [address] [place] [address] 49989- 5343 Sep, Mood disorder F39 ; Pain of left leg M79.605 and Pain in right leg M79.604 [facility] [address], [place] [address]- 1206 Sep, Seizures R56.9 [place] [address], [place] [address] 2546 08 Sep, 2016 [facility] [id number] [place] [address] 86323 2546 Sep, [facility] [address], [place] [address] 2546 Sep, [facility] [id number] [place] [address] 34575 2546 Aug, Bronchitis J40 [facility] [id number] [place] [address] 36852 2546 Aug, Bronchitis J40 and Encounter for drug screening Z02.83 [facility] [id number] [place] [address] 72217 2546 Aug, [facility] [id number] [place] [address] 77000- 2594 Aug, Seizures R56.9 [facility] [id number] [place] [address] 16863 2546 Aug, Seizures R56.9 [facility] [id number] [place] [address] 15517 2546 Aug, Major depressive disorder, recurrent, moderate F33.1 and Seizures R56.9 [facility] [id number] [place] [address] 13855 2546 Aug, [facility] [id number] [place] [address] 38112 2546 Aug, [facility] [id number] [place] [address] 91346 2546 Aug, Major depressive disorder, recurrent, moderate F33.1 and Seizures R56.9 [facility] [address], [place] [address] 2546 Jul, Major depressive disorder, recurrent, moderate F33.1 and Degenerative brain disorder G31.9 [place] [id number], [place] [address]- 8702 Jul, Seizures R56.9 [place] [id number] [place] [address] 45879- 1757 Apr, [place] [address], [place] [address]- 0354 Apr, Major depressive disorder, recurrent, moderate F33.1 ; Anxiety F41.9 and Degenerative brain disorder G31.9 [place] [address], [place] [address]- 1254 Apr, Mood disorder F39 [place] [id number] [place] [address] 26620- 8501 Apr, Arthritis M19.90 [place] [id number] [place] [address] 95970- 1763 Mar, Arthritis M19.90 ; Degenerative brain disorder G31.9 and Nonintractable generalized idiopathic epilepsy without status epilepticus G40.309 [place] [address], [place] [address]- 5818 Feb, IMMUNIZATIONS No Known Immunizations SOCIAL HISTORY Never Assessed REASON FOR VISIT medication change--[place] PLAN OF CARE VITAL SIGNS MEDICATIONS Medication Instructions Dosage Frequency Start Date End Date Duration Status Nicoderm CQ 14 MG/24HR Transdermal Once a day 1 patch to skin 24h Jul, 30 day(s) Active RESULTS No Results PROCEDURES No Known procedures INSTRUCTIONS MEDICATIONS ADMINISTERED No Known Medications MEDICAL (GENERAL) HISTORY Type Description Date Medical History Toxoplasmosis Medical History migraine Medical History dementia Medical History depression Medical History alzheimers disease Medical History epilepsy Medical History COPD Surgical History cholecystectomy Surgical History appendectomy Surgical History 27 brain surgeries including shunt, [place] Surgical History neck fusion 09/26, 09/28 Surgical History right hand surgery Hospitalization History surgeries Hospitalization History seizures 12/2015
--- OUTSIDE RECORDS SUMMARY | 2018-10-22 11:47 | XMS REPORT ---
Author Author JASMEET WINSLOW Organization [facility] Address [address] [place] [address] Care Team Providers Care Express Manager Name Role Phone JASMEET WINSLOW Unavailable PROBLEMS Type Condition ICD9-CM Code [id number] Code Onset Dates Condition Status SNOMED Code Problem Major depressive disorder, recurrent, moderate F33.1 Active 06352201 Problem Sleep apnea, unspecified type G47.30 Active 10176920 Problem Degenerative brain disorder G31.9 Active 32395898 Problem Gastroesophageal reflux disease without esophagitis K21.9 Active 323927517 Problem Gait disturbance R26.9 Active 28434626 Problem Depressive disorder, not elsewhere classified F32.9 Active 24879177 Problem Other chronic pain G89.29 Active 52537702 Problem History of brain shunt Z98.2 Active 488864285 Problem PTSD (post-traumatic stress disorder) F43.10 Active 08117783 Problem Anxiety F41.9 Active 67201234 Problem Unsteady gait R26.81 Active 01600138 Problem Mood disorder F39 Active 56268722 Problem Unspecified mental disorder due to known physiological condition F09 Active 025586361 Problem Other chronic pain G89.29 Active 39726636 Problem Dementia with behavioral disturbance, unspecified dementia type F03.91 Active [id number] ALLERGIES No Information ENCOUNTERS Encounter Location Date Diagnosis [facility] [address] [place] [place] [id number] Jun, [facility] [address] [facility] [id number] [address] 16 Jun, 2018 PTSD (post-traumatic stress disorder) F43.10 [facility] [address] [facility] [id number] [address] 14 Jun, 2018 [facility] [address] [facility] [id number] [address] 8933 11 Jun, 2018 [facility] [address] [place] [id number] Jun, Unspecified mental disorder due to known physiological condition F09 ; History of brain shunt Z98.2 ; PTSD (post-traumatic stress disorder) F43.10 and Mood disorder F39 [facility] [address] [address] Jun, [place] [id number] [place] [address]9721- 1815 Jun, [facility] [id number] [place] [address] 03881- 0197 Jun, Gastroesophageal reflux disease without esophagitis K21.9 [place] [id number] [place] [address] 084327- 8874 May, PTSD (post-traumatic stress disorder) F43.[address] [facility] [address] [id number] May, Gait disturbance R26.9 and Callus of foot L84 [facility] [address] [place] [address] 86745- 4876 24 Apr, 2018 PTSD (post-traumatic stress disorder) F43.10 [facility] [address]00565[address] [address] 2546 12 Apr, 2018 [place] [address] [address] 2546 12 Apr, 2018 History of brain shunt Z98.2 [facility] [address]65[address] [address] 254 10 Apr, 2018 PTSD (post-traumatic stress disorder) F43.10 [place] [address] [id number] [address] 07 Apr, 2018 History of brain shunt Z98.2 [facility] [address] [id number] [address] 8007 04 Apr, 2018 History of brain shunt Z98.[address] [facility] [address] [place] [id number] Mar, History of brain shunt Z98.2 ; Depressive disorder, not elsewhere classified F32.9 ; Degenerative brain disorder G31.9 ; Unsteady gait R26.81 ; Other chronic pain G89.29 and Daily headache R51 [place] [address] [address] 85[address] Mar, PTSD (post-traumatic stress disorder) F43.10 [place] [id number] [place] [address] 32870- 7898 Mar, [place] [id number] [place] [address] 28949- 1889 Feb, PTSD (post-traumatic stress disorder) F43.10 [place] [id number] [place] [address]34- 5905 Feb, PTSD (post-traumatic stress disorder) F43.10 [place] [id number] [place] [address] 89117- 6651 Feb, Other chronic pain G89.29 and Pain in right knee M25.561 [place] [id number] [place] [address] 85024- 3114 Feb, PTSD (post-traumatic stress disorder) F43.10 [place] [address] [address] 4[address] Feb, [facility] [address] [id number] Jan, Dementia with behavioral disturbance, unspecified dementia type F03.91 ; Other chronic pain G89.29 and Plantar fasciitis M72.[address] [facility] [address] [id number] Jan, Daily headache R51 ; History of brain shunt Z98.2 ; Plantar fasciitis of left foot M72.2 ; Pain in right knee M25.561 and Pain in left knee M25.562 [place] [id number] [place] [address] 62121- 8303 14 Jan, 2018 [facility] [address] [id number] [address] 4760 07 Jan, 2018 Pain in right knee M25.561 [facility] [address] [address] 1556 05 Jan, 2018 [facility] [address] [address] 9426 Jan, [facility] [address] [address] 0[address] Jan, [facility] [address] [place] [address] 46185- 7235 December, Other chronic pain G89.29 [facility] [address] [place] [place] [address] December, Pain in left knee M25.562 ; Pain in right leg M79.604 ; Other chronic pain G89.29 ; Localized edema R60.0 and PTSD (post-traumatic stress disorder) F43.10 [facility] [address]65[address] [address] December, [facility] [id number] [place] [address] 43793- 9583 December, PTSD (post-traumatic stress disorder) F43.10 [facility] [address] [address] 7377 December, [facility] [address] [address] 9567 December, [facility] [address] [address] 9452 December, Depressive disorder, not elsewhere classified F32.9 and Cognitive change R41.89 [facility] [address] [address] 7440 Nov, Major depressive disorder, recurrent, moderate F33.1 [facility] [id number] [address] 2420 Nov, [facility] [address] [address] 9296 Nov, [facility] [address] [address] 0830 Nov, [facility] [address] [address] 3554 Nov, [facility] [address] [address] 3803 Nov, Mood disorder F39 [facility] [id number] [place] [address] 88069- 7759 Nov, Depressive disorder, not elsewhere classified F32.9 and Cognitive change R41.89 [facility] [address] [address] 6524 Nov, [facility] [address] [address] 2604 Nov, [facility] [address] [place] [place] [address] Oct, Tear of skin of plantar aspect of right foot, initial encounter S91.311A [facility] [address] [address] Oct, [facility] [address] Oct, [facility] [id number] [address] Oct, [facility] [id number] [address] Oct, [facility] [address] [id number] [address] 28 Sep, [address] [facility] [id number] [address] 14 Sep, 2017 [facility] [id number] [address] Sep, [facility] [id number][place] [address] Sep, [facility] [address], [place] [address] 2546 Sep, [facility] [address], [place] [address]- 6596 Sep, Other chronic pain G89.29 and Pain in left knee M25.562 [facility] [address], [place] [address] 8516 Sep, [facility] [address] [id number] Sep, Plantar fasciitis of left foot M72.2 and Pain in right knee M25.561 [facility] [id number], [place] [address] Aug, [facility] [address] [address] 5610 Aug, [facility] [address] [address] 2958 Aug, [facility] [address] [address] Aug, Chronic daily headache R51 [facility] [address] [address] 3635 Aug, [facility] [address] [place] [address] Aug, Edema, unspecified type R60.9 ; Weight gain R63.5 and Sleep apnea, unspecified type G47.30 [facility] [address] [place] [address] Jul, Acute pain of left knee M25.562 and Plantar fasciitis of left foot M72.2 [facility] [address]65[address], [place] [address]- 9186 Jul, [facility] [address] [place] [address] Jul, Plantar fasciitis of left foot M72.2 and Chronic daily headache R51 [facility] [id number][place] [address] Jul, [facility] [id number], [place] [address] Jun, [facility] [address], [place] [address] Jun, [facility] [id number] [address] Jun, [facility] [id number][place] [address] Jun, [facility] [id number], [place] [address] May, [facility] [id number][place] [address] May, [facility] [address] [id number] [address]- 6256 May, Stress incontinence of urine N39.3 [facility] [address] [id number] [address] May, [facility] [address] [place] [address] May, Encounter for examination for admission to senior living Z02.2 ; Toxoplasmosis B58.9 ; Seizures R56.9 ; Major depressive disorder, recurrent, moderate F33.1 ; Degenerative brain disorder G31.9 and Unsteady gait R26.81 [facility] [address] [id number] [address]- 8126 May, [facility] [address] [id number] 1098 May, Mood disorder F39 [facility] [id number] [place] [address], [place] [address]- 5454 May, [facility] [place] [facility] [address] [id number] [place] [address]- 8844 Apr, [facility] [place] [facility] [address] [id number] [place] [address]- 4827 Mar, [facility] [place] [facility] [address] [id number] [place] [address]- 0209 Mar, [facility] [place] [facility] [address] [id number] [place] [address]- 3809 Mar, [facility] [place] [facility] [address] [id number] [place] [address], [place] [address]- 3805 Mar, [facility] [place] [facility] [address] [id number] [place] [address], [place] [address]- 0622 Mar, [facility] [place] [facility] [id number] [place] [address], [place] [address]- 9324 Mar, Stress incontinence of urine N39.3 [facility] [address] [id number] [id number] Mar, [facility] [place] [facility] [address] [id number] [place] [address]- 1641 Feb, [facility] [place] [facility] [address] [id number] [place] [address]- 9769 Feb, [facility] [place] [facility] [address] [id number] [place] [address]- 6368 Feb, [facility] [place] [facility] [address] [id number], [place] [address]- 1356 Feb, [facility] [place] [facility] [address] [id number] [place] [address]- 7714 Feb, [facility] [place] [facility] [address] [id number] [place] [address]- 4731 Feb, [facility] [place] [facility] [address] [facility] [id number] [place] [address]82 Feb, [facility] [address]00565[address], [place] [address]- 3154 Jan, [facility] [address]00565100[place], [place] [address]- 7675 Jan, [facility] [address]00565100[place], [place] [address]- 3114 Jan, [facility] [id number] [place] [address] 69484- 6142 Jan, [facility] [address]00565[address], [place] [address]- 0357 Jan, [facility] [id number] [place] [address] 41727- 1054 Jan, [facility] [address] [place] [address] 05832- 9030 Jan, [facility] [address] [place] [address] 40804- 9597 Jan, General weakness R53.1 and Dementia with behavioral disturbance, unspecified dementia type F03.91 [facility] [address], [place] [address]- 7411 December, [facility] [address]005[address], [place] [address]- 4923 December, Other chronic pain G89.29 [facility] [address]65100[place], [place] [address]- 3090 December, [facility] [address], [place] [address]- 2529 December, Unsteady gait R26.81 ; Generalized weakness R53.1 ; Unspecified mental disorder due to known physiological condition F09 and Generalized headaches R51 [facility] [address]65[address], [place] [address]- 2626 December, [facility] [address]00565[address], [place] [address]- 6505 Nov, Anxiety F41.9 [facility] [address] [place] [address] 81582- 2394 Nov, Mood disorder F39 [facility] [id number] [place] [address] 73337- 8941 Oct, [facility] [id number] [place] [address] 65634- 8353 Oct, Anxiety F41.9 [facility] [id number] [place] [address] 03522- 7929 Oct, Other chronic pain G89.29 [place] [address] [address]- 7302 Sep, Other chronic pain G89.29 ; Pain in left knee M25.562 ; Pain in right knee M25.561 and Anxiety F41.9 [facility] [id number] [place] [address] 17623- 4024 Sep, MDD (major depressive disorder), recurrent episode, mild F33.0 ; Degenerative brain disorder G31.9 and Other terminal manager (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 Z79.899 [place] [id number] [place] [address] 64832- 1089 Sep, [facility] [id number] [place] [address] 45635- 7460 Sep, [facility] [id number] [place] [address] 64120- 1709 Sep, Mood disorder F39 ; Pain of left leg M79.605 and Pain in right leg M79.604 [facility] [id number] [place] [address] 19720- 0126 Sep, Seizures R56.9 [facility] [id number] [place] [address] 13580- 7091 Sep, [facility] [address] [place] [address]- 6844 Sep, [facility] [address] [place] [address] 44011- 3986 Sep, [facility] [id number] [place] [address] 64812- 6807 Aug, Bronchitis J40 [facility] [id number] [place] [address] 29522- 6016 Aug, Bronchitis J40 and Encounter for drug screening Z02.83 [facility] [id number] [place] [address] 29656- 4910 Aug, [facility] [id number] [place] [address] 36639- 9728 Aug, Seizures R56.9 [facility] [id number] [place] [address] 38295- 4549 Aug, Seizures R56.9 [facility] [id number] [place] [address] 69986- 9866 Aug, Major depressive disorder, recurrent, moderate F33.1 and Seizures R56.9 [facility] [address] [place] [address] 39975- 7869 Aug, [facility] [address], [place] [address]- 6770 Aug, [facility] [address] [place] [address] 50235- 6964 Aug, Major depressive disorder, recurrent, moderate F33.1 and Seizures R56.9 [facility] [address] [place] [address] 96446- 6341 Jul, Major depressive disorder, recurrent, moderate F33.1 and Degenerative brain disorder G31.9 [facility] [address], [place] [address]- 0382 Jul, Seizures R56.9 [facility] [address] [id number] [address]- 9828 Apr, [facility] [address] [id number], [place] [address]- 8405 Apr, Major depressive disorder, recurrent, moderate F33.1 ; Anxiety F41.9 and Degenerative brain disorder G31.9 [place] [address], [place] [address]- 7812 Apr, Mood disorder F39 [place] [address] [place] [address] 63094- 2338 Apr, Arthritis M19.90 [place] [id number] [place] [address] 16139- 8760 Mar, Arthritis M19.90 ; Degenerative brain disorder G31.9 and Nonintractable generalized idiopathic epilepsy without status epilepticus G40.309 [place] [address], [place] [address]- 6242 Feb, IMMUNIZATIONS No Known Immunizations SOCIAL HISTORY Never Assessed REASON FOR VISIT confusion, behaviors PLAN OF CARE Activity Details Follow Up 2 Months Reason: VITAL SIGNS MEDICATIONS Unknown Medications RESULTS No Results PROCEDURES Procedure Date Ordered Result Body Site Significant Complication (25 mins) Jun 29, 2018 INSTRUCTIONS MEDICATIONS ADMINISTERED No Known Medications MEDICAL (GENERAL) HISTORY Type Description Date Medical History Toxoplasmosis Medical History migraine Medical History dementia Medical History depression Medical History alzheimers disease Medical History epilepsy Medical History COPD Surgical History cholecystectomy Surgical History appendectomy Surgical History 27 brain surgeries including shunt, [place] Surgical History neck fusion 09/26, 09/28 Surgical History right hand surgery Hospitalization History surgeries Hospitalization History seizures 12/2015
--- OUTSIDE RECORDS SUMMARY | 2018-10-22 11:48 | XMS REPORT ---
Author Author JENIFER BRAY Organization [facility] Address [address] [place] [address] Care Team Providers Care Tinner Automatic Name Role Phone JENIFER BRAY Unavailable PROBLEMS Type Condition ICD9-CM Code [id number] Code Onset Dates Condition Status SNOMED Code Problem Major depressive disorder, recurrent, moderate F33.1 Active 29636458 Problem Sleep apnea, unspecified type G47.30 Active 07000005 Problem Degenerative brain disorder G31.9 Active 75677291 Problem Gastroesophageal reflux disease without esophagitis K21.9 Active 523148003 Problem Gait disturbance R26.9 Active 94593902 Problem Depressive disorder, not elsewhere classified F32.9 Active 42907511 Problem Other chronic pain G89.29 Active 52440419 Problem History of brain shunt Z98.2 Active 972052692 Problem PTSD (post-traumatic stress disorder) F43.10 Active 16030530 Problem Anxiety F41.9 Active 56737229 Problem Unsteady gait R26.81 Active 95385188 Problem Mood disorder F39 Active 91993305 Problem Unspecified mental disorder due to known physiological condition F09 Active 871374887 Problem Other chronic pain G89.29 Active 21627486 Problem Dementia with behavioral disturbance, unspecified dementia type F03.91 Active [id number] ALLERGIES No Information ENCOUNTERS Encounter Location Date Diagnosis [place] [id number] [facility] [id number] [address] Jun, [facility] [address] [place] [id number] Jun, Unspecified mental disorder due to known physiological condition F09 ; History of brain shunt Z98.2 ; PTSD (post-traumatic stress disorder) F43.10 and Mood disorder F39 [facility] [address] [facility] [id number], [place] [address] 290[address] Jun, [facility] [id number] [place] [address] 07250- 4140 Jun, [place] [id number] [place] [address] 98877- 5219 Jun, Gastroesophageal reflux disease without esophagitis K21.9 [facility] [address] [place] [address] 73360- 9496 May, PTSD (post-traumatic stress disorder) F43.10 [facility] [address] [place] [id number] May, Gait disturbance R26.9 and Callus of foot L84 [place] [id number] [place] [address] 76490- 2067 Apr, PTSD (post-traumatic stress disorder) F43.10 [place] [id number] [place] [address] 55966- 5189 Apr, [place] [id number] [place] [address] 07192- 9820 Apr, History of brain shunt Z98.2 [place] [id number] [place] [address] 18130- 8968 10 Apr, 2018 PTSD (post-traumatic stress disorder) F43.10 [place] [id number] [place] [address] 59641- 3502 07 Apr, 2018 History of brain shunt Z98.2 [place] [id number] [place] [address] 78217- 0323 04 Apr, 2018 History of brain shunt Z98.2 [facility] [address] [place] [id number] Mar, History of brain shunt Z98.2 ; Depressive disorder, not elsewhere classified F32.9 ; Degenerative brain disorder G31.9 ; Unsteady gait R26.81 ; Other chronic pain G89.29 and Daily headache R51 [place] [address] [address] Mar, PTSD (post-traumatic stress disorder) F43.10 [facility] [address], [place] [address] Mar, [facility] [address], [place] [address] 0045 Feb, PTSD (post-traumatic stress disorder) F43.10 [facility] [address], [place] [address] 1366 Feb, PTSD (post-traumatic stress disorder) F43.10 [facility] [address], [place] [address] 15[address] Feb, Other chronic pain G89.29 and Pain in right knee M25.561 [place] [address] [place] [address] 37714- 9222 Feb, PTSD (post-traumatic stress disorder) F43.10 [place] [address], [place] [address] Feb, [facility] [address] [id number] Jan, Dementia with behavioral disturbance, unspecified dementia type F03.91 ; Other chronic pain G89.29 and Plantar fasciitis M72.[address] [facility] [address] [id number] Jan, Daily headache R51 ; History of brain shunt Z98.2 ; Plantar fasciitis of left foot M72.2 ; Pain in right knee M25.561 and Pain in left knee M25.562 [facility] [address], [place] [address] 5[address] Jan, [place] [address] [address] 4[address] Jan, Pain in right knee M25.561 [place] [address], [place] [address] 5[address] Jan, [facility] [address], [place] [address] Jan, [facility] [address], [place] [address] 5[address] Jan, [facility] [id number] [place] [address] 72580- 4705 December, Other [facility] pain G89.29 [facility] [address] [place] [address] December, Pain in left knee M25.562 ; Pain in right leg M79.604 ; Other chronic pain G89.29 ; Localized edema R60.0 and PTSD (post-traumatic stress disorder) F43.10 [facility] [id number] [place] [address] 08570- 3332 December, [facility] [id number] [place] [address] 95920- 2966 December, PTSD (post-traumatic stress disorder) F43.10 [facility] [id number] [place] [address] 67544- 6463 December, [facility] [id number] [place] [address] 86497- 6921 December, [facility] [id number] [place] [address] 98682- 5712 December, Depressive disorder, not elsewhere classified F32.9 and Cognitive change R41.89 [facility] [id number] [place] [address] 81413- 8828 Nov, Major depressive disorder, recurrent, moderate F33.1 [facility] [address], [place] [address] 1035 Nov, [facility] [id number] [place] [address] 56833- 4416 Nov, [facility] [id number] [place] [address] 10776- 2100 Nov, [facility] [id number] [place] [address] 85452- 1256 Nov, [facility] [address], [place] [address] 2186 Nov, Mood disorder F39 [facility] [address] [place] [address] 955660- 6210 Nov, Depressive disorder, not elsewhere classified F32.9 and Cognitive change R41.89 [facility] [address] [place] [address] 24658- 7596 Nov, [facility] [address], [place] [address] Nov, [facility] [address] [place] [id number] Oct, Tear of skin of plantar aspect of right foot, initial encounter S91.311A [facility] [address], [place] [address] 8971 Oct, [facility] [address] [address] 3140 Oct, [facility] [id number] [place] [address] [id number] Oct, [facility] [id number] [place] [address] [id number] Oct, [facility] [id number] [address] Sep, [facility] [id number] [place] [address] [id number] 14 Sep, 2017 [facility] [id number] [id number] Sep, [facility] [id number] [place] [address] [id number] 09 Sep, 2017 [facility] [id number], [place] [address] 3316 08 Sep, 2017 [facility] [address] [place] [address] [id number]- 3870 Sep, Other chronic pain G89.29 and Pain in left knee M25.562 [facility] [address], [place] [address] 2263 Sep, [facility] [address] [place] [address] Sep, Plantar fasciitis of left foot M72.2 and Pain in right knee M25.561 [facility] [id number] [id number] Aug, [facility] [address], [place] [address] 4607 Aug, [facility] [address], [place] [address]- 5542 Aug, [facility] [address] [place] [address] 07771- 1301 Aug, Chronic daily headache R51 [facility] [address], [place] [address] 2720 Aug, [facility] [address] [id number] Aug, Edema, unspecified type R60.9 ; Weight gain R63.5 and Sleep apnea, unspecified type G47.30 [facility] [address] [place] [id number] Jul, Acute pain of left knee M25.562 and Plantar fasciitis of left foot M72.2 [facility] [id number] [address] 5866 Jul, [facility] [address] [place] [id number] Jul, Plantar fasciitis of left foot M72.2 and Chronic daily headache R51 [facility] [id number] [id number] Jul, [facility] [id number] [id number] Jun, [facility] [id number], [place] [address]- 6232 Jun, [facility] [address] [id number] [address] Jun, [facility] [id number] [id number] Jun, [facility] [id number] [place] [id number] May, [facility] [id number] [id number] May, [facility] [address] [place] [address] 87144- 9686 May, Stress incontinence of urine N39.3 [facility] [id number] [address] May, [facility] [place] [address] [place] [id number] May, Encounter for examination for admission to senior care Z02.2 ; Toxoplasmosis B58.9 ; Seizures R56.9 ; Major depressive disorder, recurrent, moderate F33.1 ; Degenerative brain disorder G31.9 and Unsteady gait R26.81 [facility] [address]65[address], [place] [address]- 8180 May, [facility] [address] [address] 2463 May, Mood disorder F39 [facility] [address] [address] 0765 May, [facility] [address], [place] [address]- 3115 Apr, [facility] [address] 7996 Mar, [facility] [address], [place] [address]- 3957 Mar, [facility] [place] [facility] [address] [id number] [place] [address]- 0943 Mar, [facility] [place] [facility] [address] [id number] [place] [address]- 2547 Mar, [facility] [place] [facility] [address] [id number] [place] [address]- 6328 Mar, [facility] [place] [facility] [id number] [place] [address], [place] [address]- 5345 Mar, Stress incontinence of urine N39.3 [facility] [id number] [place] [address], [place] [id number] Mar, [facility] [place] [facility] [address] [id number] [place] [address]- 6184 Feb, [facility] [place] [facility] [id number] [place] [address], [place] [address]- 0268 Feb, [facility] [place] [facility] [address] [id number] [place] [address]- 2730 Feb, [facility] [place] [facility] [address] [id number] [place] [address], [place] [address]- 6851 Feb, [facility] [place] [facility] [address] [id number] [place] [address]- 5245 Feb, [facility] [place] [facility] [address] [id number] [place] [address]- 9506 Feb, [facility] [place] [facility] [address] [id number] [place] [address]- 2026 Feb, [facility] [place] [facility] [address] [id number] [place] [address]- 5846 Jan, [facility] [place] [facility] [address] [id number] [place] [address]- 8904 Jan, [facility] [place] [facility] [address] [id number] [place] [address]- 2977 Jan, [facility] [place] [facility] [address], [place] [address]- 9853 Jan, [facility] [id number] [place] [address] 13112- 9666 Jan, [facility] [id number] [place] [address] 31154- 4866 Jan, [facility] [id number] [place] [address] 45569- 1228 Jan, [facility] [id number] [place] [address] 78311- 8013 Jan, General weakness R53.1 and Dementia with behavioral disturbance, unspecified dementia type F03.91 [facility] [id number] [place] [address] 29321- 0430 December, [facility] [id number] [place] [address] 99093- 0764 December, Other chronic pain G89.29 [facility] [id number] [place] [address] 93044- 3006 December, [facility] [id number] [place] [address] 26192- 5986 December, Unsteady gait R26.81 ; Generalized weakness R53.1 ; Unspecified mental disorder due to known physiological condition F09 and Generalized headaches R51 [facility] [address] [place] [address] 61629- 3096 December, [facility] [id number] [place] [address] 41295- 8977 Nov, Anxiety F41.9 [facility] [id number] [place] [address] 13477- 5327 Nov, Mood disorder F39 [facility] [address] [place] [address] 12373- 4429 Oct, [facility] [id number] [place] [address] 94765- 9256 Oct, Anxiety F41.9 [facility] [id number] [place] [address] 89517- 8453 Oct, Other chronic pain G89.29 [facility] [id number] [place] [address] 91082- 4449 Sep, Other chronic pain G89.29 ; Pain in left knee M25.562 ; Pain in right knee M25.561 and Anxiety F41.9 [facility] [id number] [place] [address] 24360- 0107 Sep, MDD (major depressive disorder), recurrent episode, mild F33.0 ; Degenerative brain disorder G31.9 and Other fci (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 Z79.899 [facility] [id number] [place] [address] 67728- 8188 Sep, [facility] [address] 89198- 3225 Sep, [facility] [id number] [place] [address] 44326- 6558 Sep, Mood disorder F39 ; Pain of left leg M79.605 and Pain in right leg M79.604 [facility] [id number] [place] [address] 16215- 6968 14 Sep, 2016 Seizures R56.9 [facility] [id number] [place] [address] 12506- 5194 Sep, [facility] [id number] [place] [address] 73097- 6409 Sep, [facility] [id number] [place] [address] 10592- 9532 Sep, [facility] [id number] [place] [address] 33703- 4021 Aug, Bronchitis J40 [facility] [address] 45645- 0482 Aug, Bronchitis J40 and Encounter for drug screening Z02.83 [facility] [id number] [place] [address] 80539- 2596 Aug, [facility] [id number] [place] [address] 15635- 7296 Aug, Seizures R56.9 [facility] [id number] [place] [address] 95260- 1296 Aug, Seizures R56.9 [place] [id number] [place] [address] 20759- 7924 Aug, Major depressive disorder, recurrent, moderate F33.1 and Seizures R56.9 [place] [id number] [place] [address] 90866- 6163 Aug, [place] [id number] [place] [address] 47995- 8093 Aug, [facility] [id number] [place] [address] 81562- 7735 Aug, Major depressive disorder, recurrent, moderate F33.1 and Seizures R56.9 [place] [id number] [place] [address] 63304- 4256 Jul, Major depressive disorder, recurrent, moderate F33.1 and Degenerative brain disorder G31.9 [facility] [id number] [place] [address] 83725- 7517 Jul, Seizures R56.9 [facility] [address] [place] [address] 90472- 7234 Apr, [facility] [id number] [place] [address] 69904- 8439 Apr, Major depressive disorder, recurrent, moderate F33.1 ; Anxiety F41.9 and Degenerative brain disorder G31.9 [facility] [id number] [place] [address] 63078- 3479 Apr, Mood disorder F39 [facility] [address] [facility] [id number] [place] [address] 0396 Apr, Arthritis M19.90 [facility] [address] [facility] [id number]18[place] 6811 Mar, Arthritis M19.90 ; Degenerative brain disorder G31.9 and Nonintractable generalized idiopathic epilepsy without status epilepticus G40.309 [facility] [address] [facility] [id number] [place] 7003 Feb, IMMUNIZATIONS No Known Immunizations SOCIAL HISTORY Never Assessed REASON FOR VISIT After Hours Clinical Advice PLAN OF CARE VITAL SIGNS MEDICATIONS Unknown Medications RESULTS No Results PROCEDURES No Known procedures INSTRUCTIONS MEDICATIONS ADMINISTERED No Known Medications MEDICAL (GENERAL) HISTORY Type Description Date Medical History Toxoplasmosis Medical History migraine Medical History dementia Medical History depression Medical History alzheimers disease Medical History epilepsy Medical History COPD Surgical History cholecystectomy Surgical History appendectomy Surgical History 27 brain surgeries including shunt, [place] Surgical History neck fusion 09/26, 09/28 Surgical History right hand surgery Hospitalization History surgeries Hospitalization History seizures 12/2015
--- OUTSIDE RECORDS SUMMARY | 2018-10-22 11:48 | XMS REPORT ---
Author Author ESTEPHANIA IVAN [facility] Address [address] [place] [address] Care Team Providers [employer] Name Role Phone ESTEPHANIA IVAN Unavailable PROBLEMS Type Condition ICD9-CM Code CXK90-UW Code Onset Dates Condition Status SNOMED Code Problem Major depressive disorder, recurrent, moderate F33.1 Active 14948571 Problem Sleep apnea, unspecified type G47.30 Active 04342067 Problem Degenerative brain disorder G31.9 Active 29430226 Problem Gastroesophageal reflux disease without esophagitis K21.9 Active 520807633 Problem Gait disturbance R26.9 Active 61015293 Problem Depressive disorder, not elsewhere classified F32.9 Active 99854255 Problem Other chronic pain G89.29 Active 10618184 Problem History of brain shunt Z98.2 Active 286875316 Problem PTSD (post-traumatic stress disorder) F43.10 Active 36830219 Problem Anxiety F41.9 Active 93792900 Problem Unsteady gait R26.81 Active 33405107 Problem Mood disorder F39 Active 62061214 Problem Unspecified mental disorder due to known physiological condition F09 Active 602944872 Problem Other chronic pain G89.29 Active 91257043 Problem Dementia with behavioral disturbance, unspecified dementia type F03.91 Active [id number] ALLERGIES Substance Reaction Event Type Date Status Morphine Sulfate itching Drug Allergy Jun, Active ENCOUNTERS Encounter Location Date Diagnosis [facility] [address] [id number] Jun, [facility] [id number] [address] 9[address] 16 Jun, 2018 PTSD (post-traumatic stress disorder) F43.10 [facility] [id number] [address] 6269 Jun, [facility] [id number] [place] [address] 02409- 6493 Jun, [facility] [address] [id number] Jun, Unspecified mental disorder due to known physiological condition F09 ; History of brain shunt Z98.2 ; PTSD (post-traumatic stress disorder) F43.10 and Mood disorder F39 [address] [id number] [place] [address] 87483- 9278 Jun, [facility] [id number] [place] [address] 89169- 3322 Jun, [facility] [facility] [id number] [place] [address] 878902- 7176 Jun, Gastroesophageal reflux disease without esophagitis K21.9 [place] [id number] [place] [address] 87934- 4928 May, PTSD (post-traumatic stress disorder) F43.10 [facility] [address] [id number] May, Gait disturbance R26.9 and Callus of foot L84 [place] [id number] [place] [address] 89898- 3967 Apr, PTSD (post-traumatic stress disorder) F43.10 [place] [address] [address]- 4646 Apr, [facility] [id number] [place] [address] 17448- 254 Apr, History of brain shunt Z98.2 [facility] [id number] [place] [address] 44099 2540 Apr, PTSD (post-traumatic stress disorder) F43.10 [place] [id number] [place] [address] 81997- 8858 07 Apr, 2018 History of brain shunt Z98.2 [facility] [id number] [place] [address] 39873- 2546 Apr, History of brain shunt Z98.[address] [facility] [address] [id number] Mar, History of brain shunt Z98.2 ; Depressive disorder, not elsewhere classified F32.9 ; Degenerative brain disorder G31.9 ; Unsteady gait R26.81 ; Other chronic pain G89.29 and Daily headache R51 [place] [id number] [place] [address] 95382- 8732 Mar, PTSD (post-traumatic stress disorder) F43.10 [place] [id number] [place] [address] 02469- 4935 Mar, [place] [id number] [place] [address] 62206- 6810 Feb, PTSD (post-traumatic stress disorder) F43.10 [place] [id number] [place] [address] 09239- 5456 Feb, PTSD (post-traumatic stress disorder) F43.10 [place] [id number] [place] [address] 01353- 7980 Feb, Other chronic pain G89.29 and Pain in right knee M25.561 [place] [id number] [place] [address] 99597- 9073 Feb, PTSD (post-traumatic stress disorder) F43.10 [place] [id number] [place] [address] 97750- 9170 Feb, [facility] [address] [id number] Jan, Dementia with behavioral disturbance, unspecified dementia type F03.91 ; Other chronic pain G89.29 and Plantar fasciitis M72.[address] [facility] [address] [id number] Jan, Daily headache R51 ; History of brain shunt Z98.2 ; Plantar fasciitis of left foot M72.2 ; Pain in right knee M25.561 and Pain in left knee M25.562 [place] [address] [address] 57[address] 14 Jan, 2018 [facility] [address] [address]- 0075 Jan, Pain in right knee M25.561 [facility] [address] [address]- 0046 05 Jan, 2018 [facility] [id number] [place] [address] 84693- 8110 Jan, [facility] [address] [address]- 3566 Jan, [facility] [id number] [place] [address] 55341- 5967 December, Other chronic pain G89.29 [facility] [address] [address] December, Pain in left knee M25.562 ; Pain in right leg M79.604 ; Other chronic pain G89.29 ; Localized edema R60.0 and PTSD (post-traumatic stress disorder) F43.10 [facility] [id number] [place] [address] 93804- 4076 December, [facility] [address] [address]- 4298 December, PTSD (post-traumatic stress disorder) F43.10 [facility] [address] [address]- 8561 December, [facility] [address] [address]- 7422 December, [facility] [id number] [place] [address] 07228- 2798 December, Depressive disorder, not elsewhere classified F32.9 and Cognitive change R41.89 [facility] [address] [address]- 0010 Nov, Major depressive disorder, recurrent, moderate F33.1 [facility] [address] [address]- 1912 Nov, [facility] [id number] [place] [address] 85623- 0659 Nov, [facility] [id number] [place] [address] 27362- 1154 Nov, [facility] [id number] [place] [address] 42365- 8743 Nov, [facility] [id number] [place] [address] 01069- 9987 Nov, Mood disorder F39 [facility] [id number] [place] [address] 25604- 4867 Nov, Depressive disorder, not elsewhere classified F32.9 and Cognitive change R41.89 [facility] [id number] [place] [address] 33107- 9965 Nov, [facility] [id number] [place] [address] 31350- 2599 Nov, [facility] [address] [id number] Oct, Tear of skin of plantar aspect of right foot, initial encounter S91.311A [facility] [address] [address] 3208 Oct, [facility] [address] [address] Oct, [facility] [address] [id number] [id number] Oct, [facility] [id number] [place] [id number] Oct, [facility] [id number] [place] [id number] Sep, [facility] [id number] [place] [address] [id number] Sep, [facility] [id number] [address] Sep, [facility] [id number] [address] Sep, [facility] [id number] [address]- 3946 Sep, [facility] [address] [address] 2546 Sep, Other chronic pain G89.29 and Pain in left knee M25.562 [facility] [address] [address]- 1236 Sep, [facility] [address] [place] [id number] Sep, Plantar fasciitis of left foot M72.2 and Pain in right knee M25.561 [facility] [id number] [place] [id number] Aug, [facility] [id number] [address] 0877 Aug, [facility] [address] [address] 7946 Aug, [facility] [id number] [address] 1053 Aug, Chronic daily headache R51 [facility] [id number] [address]- 3836 Aug, [facility] [address] [id number] Aug, Edema, unspecified type R60.9 ; Weight gain R63.5 and Sleep apnea, unspecified type G47.30 [facility] [address] [id number] Jul, Acute pain of left knee M25.562 and Plantar fasciitis of left foot M72.2 [facility] [id number] [address]- 8646 Jul, [facility] [address] [place] [id number] Jul, Plantar fasciitis of left foot M72.2 and Chronic daily headache R51 [facility] [id number] [place] [id number] Jul, [facility] [address] [id number] [id number] Jun, [facility] [id number] [address]- [address] Jun, [facility] [address] [id number] [id number] Jun, [facility] [id number] [place] [id number] Jun, [facility] [id number] [place] [id number] May, [facility] [address] [id number] [address] May, [facility] [address] [address]- 7126 May, Stress incontinence of urine N39.3 [facility] [id number] [place] [id number] May, [address] [id number] May, Encounter for examination for admission to senior care Z02.2 ; Toxoplasmosis B58.9 ; Seizures R56.9 ; Major depressive disorder, recurrent, moderate F33.1 ; Degenerative brain disorder G31.9 and Unsteady gait R26.81 [facility] [id number] [address] 3713 May, [facility] [id number] [address] 8722 May, Mood disorder F39 [facility] [place] [facility] [address] [id number] [place] [address]- 4542 May, [facility] [place] [facility] [address] [id number] [place] [address]- 1099 Apr, [facility] [place] [facility] [address] [id number] [place] [address]- 8817 Mar, [facility] [place] [facility] [address] [id number] [place] [address]- 9802 Mar, [facility] [place] [facility] [address] [id number] [place] [address]- 3082 Mar, [facility] [place] [facility] [address] [id number] [place] [address]- 6854 Mar, [facility] [place] [facility] [id number] [place] [address]- 8285 Mar, [facility] [place] [facility] [id number] [place] [address]- 2625 Mar, Stress incontinence of urine N39.3 [facility] [address] [id number] [place] [id number] Mar, [facility] [place] [facility] [address] [facility] [id number] [place] [address]- 6718 Feb, [facility] [place] [facility] [address] [id number] [address]- 9467 Feb, [facility] [place] [facility] [address] [id number] [place] [address]- 6181 Feb, [facility] [place] [facility] [address] [id number] [place] [address]- 7964 Feb, [facility] [place] [facility] [address] [facility] [id number] [place] [address]- 0914 Feb, [facility] [place] [facility] [address] [facility] [id number] [place] [address]- 2774 Feb, [facility] [place] [facility] [address] [address]- 0174 Feb, [facility] [address] [address]- 9996 Jan, [facility] [address] [address]- 3243 Jan, [facility] [address] [address]- 5691 Jan, [facility] [address] [address]- 6551 Jan, [facility] [address] [address]- 8902 Jan, [facility] [address] [address]- 8611 Jan, [facility] [address] [address]- 4669 Jan, [facility] [address] [address]- 4494 Jan, General weakness R53.1 and Dementia with behavioral disturbance, unspecified dementia type F03.91 [facility] [address] [address]- 7301 December, [facility] [address] [address]- 0905 December, Other chronic pain G89.29 [facility] [address] [address]- 6512 December, [facility] [address] [address]- 6648 December, Unsteady gait R26.81 ; Generalized weakness R53.1 ; Unspecified mental disorder due to known physiological condition F09 and Generalized headaches R51 [facility] [address] [address]- 1227 December, [facility] [address] [address]- 2648 Nov, Anxiety F41.9 [facility] [id number] [place] [address] 18268 2546 Nov, Mood disorder F39 [facility] [id number] [place] [address] 49329 2543 Oct, [facility] [id number] [place] [address] 44950 2546 Oct, Anxiety F41.9 [facility] [id number] [place] [address] 09081 2545 Oct, Other chronic pain G89.29 [facility] [id number] [place] [address] 99132- 4575 Sep, Other chronic pain G89.29 ; Pain in left knee M25.562 ; Pain in right knee M25.561 and Anxiety F41.9 [facility] [address] [place] [address] 30543- 8023 Sep, MDD (major depressive disorder), recurrent episode, mild F33.0 ; Degenerative brain disorder G31.9 and Other usp (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 Z79.899 [facility] [address] [address]- 0220 Sep, [facility] [id number] [address] 2541 Sep, [facility] [id number] [place] [address] 77485 2549 Sep, Mood disorder F39 ; Pain of left leg M79.605 and Pain in right leg M79.604 [facility] [address] [address] 2546 14 Sep, 2016 Seizures R56.9 [facility] [id number] [place] [address] 95801 2546 Sep, [facility] [id number] [place] [address] 12174- 7456 Sep, [facility] [id number] [place] [address] 20603- 8286 Sep, [facility] [id number] [place] [address] 29418- 8186 Aug, Bronchitis J40 [facility] [id number] [place] [address] 27756- 7315 Aug, Bronchitis J40 and Encounter for drug screening Z02.83 [facility] [id number] [place] [address] 99457- 8246 Aug, [facility] [id number] [place] [address] 59244- 5165 Aug, Seizures R56.9 [facility] [id number] [place] [address] 72465- 2400 Aug, Seizures R56.9 [facility] [id number] [place] [address] 81311- 3772 Aug, Major depressive disorder, recurrent, moderate F33.1 and Seizures R56.9 [facility] [id number] [place] [address] 24766- 8101 Aug, [facility] [id number] [place] [address] 74309- 3716 Aug, [facility] [id number] [place] [address] 69052- 3646 Aug, Major depressive disorder, recurrent, moderate F33.1 and Seizures R56.9 [facility] [id number] [place] [address] 605752- 9686 Jul, Major depressive disorder, recurrent, moderate F33.1 and Degenerative brain disorder G31.9 [facility] [id number] [place] [address] 53405- 0141 Jul, Seizures R56.9 [place] [address] [address]- 8059 Apr, [place] [id number] [place] [address] 33066- 0370 Apr, Major depressive disorder, recurrent, moderate F33.1 ; Anxiety F41.9 and Degenerative brain disorder G31.9 [facility] [id number] [place] [address] 90327- 7657 Apr, Mood disorder F39 [place] [id number] [place] [address] 16640- 4965 Apr, Arthritis M19.90 [place] [id number] [place] [address] 34517- 1644 Mar, Arthritis M19.90 ; Degenerative brain disorder G31.9 and Nonintractable generalized idiopathic epilepsy without status epilepticus G40.309 [place] [address] [address]- 6629 Feb, IMMUNIZATIONS No Known Immunizations SOCIAL HISTORY Never Assessed REASON FOR VISIT Hospital f/u PLAN OF CARE VITAL SIGNS MEDICATIONS Medication Instructions Dosage Frequency Start Date End Date Duration Status Gabapentin 300 MG Orally Three times a day 1 capsule 8h Active Furosemide 40 mg Orally Once a day in AM 1 tablet Sep, 30 day (s) Active Depakote 500 mg Orally 2 times a day 3 tablets 12h Active Potassium Chloride CR Active Advair Diskus 500-50 MCG/DOSE Inhalation Twice a day 1 puff 12h Active Colace 100 mg Orally twice a day 1 capsule 12h Active Amitriptyline HCl 50 MG Orally Once a day at bedtime 1 tablet Active Memantine HCl 5 mg Orally Once a day 1 tablet 24h Active ProAir HFA 108 (90 Base) MCG/ACT Inhalation every 4 hrs 2 puffs as needed for cough or short of breath 4h 30 Active Omeprazole 20 mg Orally Once a day 1 capsules 24h Active Biofreeze 4 % Externally Once a day at bedtime 1 applicationt both ankles Active Clonidine HCl 0.1 MG Orally Twice a day 1 tablet 12h Active Percocet 7.5-325 MG Orally every 6 hrs 1 tablet as needed 6h Mar, 28 days Active Naproxen 500 MG Orally every 12 hrs 1 tablet as needed 12h 30 Active Milk of Magnesia 1200 MG/15ML Orally Once a day 30ml as needed 24h Active Clonazepam 1 MG Orally Twice a day 1/2 tab in the AM and 1 tab in the PM 12h 28 Sep, 2016 28 days Active Ditropan XL 5 mg Orally Once [...] Surgical History 27 brain surgeries including shunt, [place] Surgical History neck fusion 09/26, 09/28 Surgical History right hand surgery Hospitalization History surgeries Hospitalization History seizures 12/2015
--- OUTSIDE RECORDS SUMMARY | 2018-10-22 11:49 | XMS REPORT ---
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 Name Role Phone ESTEPHANIA IVAN Unavailable PROBLEMS Type Condition ICD9-CM Code FGP91-GR Code Onset Dates Condition Status SNOMED Code Problem Major depressive disorder, recurrent, moderate F33.1 Active 78790435 Problem Sleep apnea, unspecified type G47.30 Active 63156862 Problem Degenerative brain disorder G31.9 Active 06612306 Problem Gastroesophageal reflux disease without esophagitis K21.9 Active 123774362 Problem Gait disturbance R26.9 Active 00003800 Problem Depressive disorder, not elsewhere classified F32.9 Active 81906732 Problem Other chronic pain G89.29 Active 54949773 Problem History of brain shunt Z98.2 Active 116217119 Problem PTSD (post-traumatic stress disorder) F43.10 Active 45598131 Problem Anxiety F41.9 Active 78338651 Problem Unsteady gait R26.81 Active 10025796 Problem Mood disorder F39 Active 41047332 Problem Unspecified mental disorder due to known physiological condition F09 Active 531400278 Problem Other chronic pain G89.29 Active 94954854 Problem Dementia with behavioral disturbance, unspecified dementia type F03.91 Active [id number] ALLERGIES No Information ENCOUNTERS Encounter Location Date Diagnosis [place] [address] [facility] [id number] [address] Jun, [facility] [address] [place], [place] [id number] Jun, Unspecified mental disorder due to known physiological condition F09 ; History of brain shunt Z98.2 ; PTSD (post-traumatic stress disorder) F43.10 and Mood disorder F39 [place] [address] [facility] [place] [id number] [address] Jun, [place] [address] [place] [id number] [place] [address] 04319- 0227 Jun, [place] [address] [place] [id number] Jun, Gastroesophageal reflux disease without esophagitis K21.9 [place] [address] [place] [id number] [place] [address] 39168- 3359 May, PTSD (post-traumatic stress disorder) F43.10 [facility] [address] [place] [id number] May, Gait disturbance R26.9 and Callus of foot L84 [place] [address] [address] Apr, PTSD (post-traumatic stress disorder) F43.10 [place] [address] [place] [id number] [place] [address] 60059- 1222 Apr, [place] [address] [address]4 Apr, History of brain shunt Z98.2 [place] [address] [place] [id number] [place] [address] 93960- 8701 Apr, PTSD (post-traumatic stress disorder) F43.10 [place] [address] [place] [id number] [place] [address] 73821- 9927 Apr, History of brain shunt Z98.2 [place] [address] [place] [id number] [place] [address] 65255- 4403 Apr, History of brain shunt Z98.2 [facility] [address] [place] [id number] Mar, History of brain shunt Z98.2 ; Depressive disorder, not elsewhere classified F32.9 ; Degenerative brain disorder G31.9 ; Unsteady gait R26.81 ; Other chronic pain G89.29 and Daily headache R51 [place] [address] [place] [id number] [place] [address] 74107- 7108 Mar, PTSD (post-traumatic stress disorder) F43.10 [facility] [address] [place] [address] [id number] [address] Mar, [facility] [address]65[address], [place] [address] Feb, PTSD (post-traumatic stress disorder) F43.10 [facility] [address]65100[place] [address] 9[address] Feb, PTSD (post-traumatic stress disorder) F43.10 [facility] [address]00565100[place] [address] 9[address] Feb, Other chronic pain G89.29 and Pain in right knee M25.561 [facility] [address]00565100[place] [address] Feb, PTSD (post-traumatic stress disorder) F43.10 [facility] [address]00565[address] [address] Feb, [facility] [address] [id number] Jan, Dementia with behavioral disturbance, unspecified dementia type F03.91 ; Other chronic pain G89.29 and Plantar fasciitis M72.[address] [facility] [address] [id number] Jan, Daily headache R51 ; History of brain shunt Z98.2 ; Plantar fasciitis of left foot M72.2 ; Pain in right knee M25.561 and Pain in left knee M25.562 [facility] [address] [place] [address] [id number] [address] Jan, [facility] [address]00565100[place] [address] 4[address] Jan, Pain in right knee M25.561 [facility] [address], [place] [address]- 9411 05 Jan, 2018 [facility] [address]00565100[place], [place] [address] 2108 Jan, [facility] [address]00565100[place], [place] [address] 5060 Jan, [facility] [address] [address] [id number] [place] [address] [id number]- 6936 December, [facility]89.29 [facility] [address] [place] [address] December, Pain in left knee M25.562 ; Pain in right leg M79.604 ; Other chronic pain G89.29 ; Localized edema R60.0 and PTSD (post-traumatic stress disorder) F43.10 [facility] [address] [id number] [place] [address] 14002- 6666 December, [facility] [id number] [place] [address] 40518- 2991 December, PTSD (post-traumatic stress disorder) F43.10 [facility] [address] [address] [id number] [place] [address] 86480- 2156 December, [facility] [address] [place] [address] 63515- 4425 December, [facility] [address] [place] [id number] [place] [address] 77587- 1704 December, Depressive disorder, not elsewhere classified F32.9 and Cognitive change R41.89 [facility] [address] [place] [address] 37207- 0906 Nov, Major depressive disorder, recurrent, moderate F33.1 [facility] [address]65[address] [address] 2016 Nov, [facility] [address] [place] [address] [id number] [place] [address] 03491- 1346 Nov, [facility] [address] [place] [address] 02914- 8733 Nov, [facility] [address] [place] 2064565[place] [address] Nov, [facility] [address]65100[place], [place] [address] 7877 Nov, Mood disorder F39 [facility] [address]00565100[place], [place] [address]- 7[address] Nov, Depressive disorder, not elsewhere classified F32.9 and Cognitive change R41.89 [facility] [address]00565[address], [place] [address] 8681 Nov, [facility] [address], [place] [address]- 32[address] Nov, [facility] [address] [place] [id number] Oct, Tear of skin of plantar aspect of right foot, initial encounter S91.311A [facility] [address]65100[place], [place] [address]- 9349 Oct, [facility] [address] [address] Oct, [facility] [id number] [id number] Oct, [facility] [id number] [id number] Oct, [facility] [id number][place] [address] Sep, [facility] [address] [place] [address] [id number] [address] Sep, [facility] [id number][place] [address] Sep, [facility] [id number][place] [address] Sep, [facility] [address] [place] [address] [id number], [place] [address]- [address] 08 Sep, 2017 [facility] [address]100[place] [address]30 Sep, Other chronic pain G89.29 and Pain in left knee M25.562 [facility] [address]00565100[place], [place] [address]- 5966 Sep, [facility] [address] [place] [id number] Sep, Plantar fasciitis of left foot M72.2 and Pain in right knee M25.561 [facility] [address] [place] [address] [id number] [address] Aug, [facility] [address] [place] [address] 86282- 5648 Aug, [facility] [address]00565100[place], [place] [address]- 4674 Aug, [facility] [address] [place] [address] [id number] [place] [address] 40533- 4850 Aug, Chronic daily headache R51 [facility] [address]00565100[place], [place] [address]- 8922 Aug, [facility] [address] [place], [place] [address] Aug, Edema, unspecified type R60.9 ; Weight gain R63.5 and Sleep apnea, unspecified type G47.30 [facility] [address] [place], [place] [address] Jul, Acute pain of left knee M25.562 and Plantar fasciitis of left foot M72.2 [facility] [address]00565100[place], [place] [address]- 2940 Jul, [facility] [address] [place] [id number] Jul, Plantar fasciitis of left foot M72.2 and Chronic daily headache R51 [facility] [id number][place] [id number] Jul, [facility] [address] [place] [address] [id number] [address] Jun, [facility] [address]00565100[place], [place] [address]- 8196 Jun, [facility] [id number] [place] [address] [id number] Jun, [facility] [address] [id number] [id number] Jun, [facility] [place] [facility] [id number] [place] [address] [id number] May, [facility] [id number] [place] [address] [id number] May, [facility] [address] [place] [address] 30127- 9056 May, Stress incontinence of urine N39.3 [facility] [id number] [place] [address] [id number] May, [facility] [address] [place] [id number] May, Encounter for examination for admission to retirement Z02.2 ; Toxoplasmosis B58.9 ; Seizures R56.9 ; Major depressive disorder, recurrent, moderate F33.1 ; Degenerative brain disorder G31.9 and Unsteady gait R26.81 [facility] [address]00565100[place] [address]- 3014 May, [facility] [address] [place] [address] 630381- 9065 May, Mood disorder F39 [facility] [address]00565100[place] 2337 May, [facility] [address] [id number] [place] [address] 04183- 5886 Apr, [facility] [address]00565100[place], [place] [address]- 7675 Mar, [facility] [address] [place] [id number] [place] [address] 87878- 8991 Mar, [facility] [place] [facility] [address] [id number] [place] [address]- 1437 Mar, [facility] [place] [facility] [address] [id number] [place] [address] Mar, [facility] [place] [facility] [address] [id number] [place] [address]- 8780 Mar, [facility] [place] [facility] [id number] [place] [address], [place] [address]- 5529 Mar, Stress incontinence of urine N39.3 [facility] [address] [place] [id number] [place] [address], [place] [id number] Mar, [facility] [place] [facility] [address] [id number] [place] [address]- 2962 Feb, [facility] [place] [facility] [address] [id number] [place] [address], [place] [address]- 2614 Feb, [facility] [place] [facility] [address] [id number] [place] [address]- 1359 Feb, [facility] [place] [facility] [address] [id number] [place] [address], [place] [address]- 3595 Feb, [facility] [place] [facility] [address] [place] [id number] [address]- 6722 Feb, [facility] [place] [facility] [address] [id number] [place] [address]- 0938 Feb, [facility] [place] [facility] [address] [id number] [place] [address]- 6494 Feb, [facility] [place] [facility] [address] [id number] [place] [address]- 7223 Jan, [facility] [place] [facility] [address] [id number] [place] [address]- 0379 Jan, [facility] [place] [facility] [address] [id number] [place] [address]- 8267 Jan, [facility] [address], [place] [address]- 1014 Jan, [facility] [address] [id number] [place] [address] 05175- 8737 Jan, [facility] [address], [place] [address]- 9659 Jan, [facility] [id number] [place] [address] 15623- 0917 Jan, [facility] [address] [place] [address] 94292- 4620 Jan, General weakness R53.1 and Dementia with behavioral disturbance, unspecified dementia type F03.91 [facility] [id number] [place] [address] 85324- 6332 December, [facility] [id number] [place] [address] 92393- 6924 December, Other chronic pain G89.29 [facility] [id number] [place] [address] 23532- 6965 December, [facility] [address] [place] [address] 63337- 2881 December, Unsteady gait R26.81 ; Generalized weakness R53.1 ; Unspecified mental disorder due to known physiological condition F09 and Generalized headaches R51 [facility] [address], [place] [address]- 0797 December, [facility] [address] [place] [address] 51874- 7097 Nov, Anxiety F41.9 [facility] [id number] [place] [address] 69564- 1123 Nov, Mood disorder F39 [facility] [address], [place] [address]- 6729 Oct, [facility] [id number] [place] [address] 28832- 1987 Oct, Anxiety F41.9 [facility] [id number] [place] [address] 88555- 1008 Oct, Other chronic pain G89.29 [facility] [address] [place] [address] 49712- 6451 Sep, Other chronic pain G89.29 ; Pain in left knee M25.562 ; Pain in right knee M25.561 and Anxiety F41.9 [facility] [address] [place] [address] 34365- 9825 Sep, MDD (major depressive disorder), recurrent episode, mild F33.0 ; Degenerative brain disorder G31.9 and Other custodial (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 Z79.899 [facility] [id number] [place] [address] 09767- 6399 Sep, [facility] [id number] [place] [address] 85797- 8209 Sep, [facility] [address] [place] [address] 06811- 9924 Sep, Mood disorder F39 ; Pain of left leg M79.605 and Pain in right leg M79.604 [facility] [address] [place] [address] 31984- 5549 Sep, Seizures R56.9 [facility] [address] [place] [address] 61337- 5894 Sep, [facility] [address] [place] [address] 00623- 6293 Sep, [facility] [address] [place] [address] 61251- 9834 Sep, [facility] [address] [place] [address] 75809- 8741 Aug, Bronchitis J40 [facility] [address] [place] [address] 61168- 8413 Aug, Bronchitis J40 and Encounter for drug screening Z02.83 [facility] [id number] [place] [address] 30451- 5035 Aug, [facility] [address] [place] [address] 76596- 0699 Aug, Seizures R56.9 [facility] [address] 71985- 7715 Aug, Seizures R56.9 [facility] [id number] [place] [address] 66710- 1660 Aug, Major depressive disorder, recurrent, moderate F33.1 and Seizures R56.9 [facility] [id number] [place] [address] 63936- 8604 Aug, [facility] [id number] [place] [address] 32683- 2901 Aug, [facility] [id number] [place] [address] 27607- 5152 Aug, Major depressive disorder, recurrent, moderate F33.1 and Seizures R56.9 [facility] [id number] [place] [address] 23997- 0964 Jul, Major depressive disorder, recurrent, moderate F33.1 and Degenerative brain disorder G31.9 [facility] [id number] [place] [address] 04577- 2588 Jul, Seizures R56.9 [facility] [id number] [place] [address] 84203- 8853 Apr, [facility] [id number] [place] [address] 95875- 6883 Apr, Major depressive disorder, recurrent, moderate F33.1 ; Anxiety F41.9 and Degenerative brain disorder G31.9 [facility] [id number] [place] [address] 54835- 5517 Apr, Mood disorder F39 [facility] [address] [facility] [place] [id number] [place] [address]- 0330 Apr, Arthritis M19.90 [facility] [address] [facility] [id number] [address]- 1949 Mar, Arthritis M19.90 ; Degenerative brain disorder G31.9 and Nonintractable generalized idiopathic epilepsy without status epilepticus G40.309 [facility] [address] [facility] [place] [id number] [place] [address]- 0960 Feb, IMMUNIZATIONS No Known Immunizations SOCIAL HISTORY Never Assessed REASON FOR VISIT [facility] Concerns PLAN OF CARE VITAL SIGNS MEDICATIONS Unknown Medications RESULTS No Results PROCEDURES No Known procedures INSTRUCTIONS MEDICATIONS ADMINISTERED No Known Medications MEDICAL (GENERAL) HISTORY Type Description Date Medical History Toxoplasmosis Medical History migraine Medical History dementia Medical History depression Medical History alzheimers disease Medical History epilepsy Medical History COPD Surgical History cholecystectomy Surgical History appendectomy Surgical History 27 brain surgeries including shunt, [place] Surgical History neck fusion 09/26, 09/28 Surgical History right hand surgery Hospitalization History surgeries Hospitalization History seizures 12/2015
[2018-10-22] MEDS: ENOXAPARIN 40 MG/0.4 ML (LOVENOX) SYR SC SCH (11:56)
--- NOTE | 2018-10-22 11:57 | NUR ---
Dr. Tejeda to floor. orders to saline lock IVF and Lovenox for DVT prophylaxis.
--- NOTE | 2018-10-22 12:56 | Progress Note-Hospitalist ---
Subjective HPI/CC On Admission Date Seen by Provider: Oct 22, 2018 Time Seen by Provider: 11:15 CC: Pneumonia HPI: This is a 53yoWM senior care patient of [facility] who was last admitted 07/09 for pneumonia presents to the ER w/fever and AMS and found to have pneumonia. Patient unable to provide any hx due to confusion and lethargy. Poor venous access so central line will be requested. Reviewed NH meds and restarted most adrianna seizure meds. Subjective/Events-last exam Patient incontinent Remains confused but that is baseline Elevated ammonia noted Lovenox will be ordered 40 mg daily for DVT prophylaxis We will Hep-Lock IV fluid due to slight edema noted Sleeping most of the time Review of Systems Neurological: Confusion Focused Exam Lactate Level 10/21/18 09:08: Lactic Acid Level 1.66 Objective Exam Vital Signs Vital Signs Date Time Temp Pulse Resp B/P (MAP) Pulse Ox O2 Delivery O2 Flow Rate FiO2 10/22/18 16:10 98.3 90 20 120/67 (84) 92 Nasal Cannula 2.00 Capillary Refill : Less Than 3 Seconds General Appearance: WD/WN, Anxious, Chronically ill, Moderate Distress, Other ( confused) HEENT: PERRL/EOMI, Normal ENT Inspection, Pharynx Normal, Moist Mucous Membranes Neck: Full Range of Motion, Normal Inspection, Non Tender Respiratory: Chest Non Tender, No Accessory Muscle Use, No Respiratory Distress , Crackles, Decreased Breath Sounds, Wheezing Cardiovascular: Regular Rate, Rhythm, No Edema, No Gallop, No JVD, No Murmur, Normal Peripheral Pulses Gastrointestinal: Normal Bowel Sounds, No Organomegaly, No Pulsatile Mass, Non Tender, Soft Back: Normal Inspection, No CVA Tenderness, No Vertebral Tenderness Extremity: Normal Capillary Refill, Normal Inspection, Normal Range of Motion, Non Tender, No Calf Tenderness, No Pedal Edema Neurologic/Psychiatric: Disoriented Skin: Normal Color, Warm/Dry Lymphatic: No Adenopathy Results/Procedures Lab Laboratory Tests 10/22/18 04:20 Patient resulted labs reviewed. Assessment/Plan Assessment and Plan Assess & Plan/Chief Complaint (1) Sepsis (2) Hypoxia (4) h/o Hyperammonemia will check level- level is 36 slightly elevated (5) h/o Valproic acid toxicity will check level- level 84 non-toxic (7) Chronic pain (8) GERD (gastroesophageal reflux disease) (9) Seizure disorder (10) Dementia 11. SEMICONDUCTOR PACKAGES TESTER shunt 12. Toxoplasmosis in 2001 13. Severe debility requiring NHP 14. 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 (4) Dementia Status: Chronic Qualifiers: Dementia type: associated with other underlying disease Dementia behavioral disturbance: without behavioral disturbance Qualified Codes: F02.80 - Dementia in other diseases classified elsewhere without behavioral disturbance (5) Depression Status: Chronic Qualifiers: Depression Type: unspecified Qualified Codes: F32.9 - Major depressive disorder, single episode, unspecified (6) Chronic pain Status: Chronic Qualifiers: Chronic pain type: chronic pain syndrome Qualified Codes: G89.4 - Chronic pain syndrome (7) GERD (gastroesophageal reflux disease) Status: Chronic Qualifiers: Esophagitis presence: without esophagitis Qualified Codes: K21.9 - Gastro- esophageal reflux disease without esophagitis (8) Seizure disorder Status: Chronic (9) Incontinence Status: Acute Qualifiers: Incontinence type: urinary Urinary Incontinence type: unspecified incontinence Qualified Codes: R32 - Unspecified urinary incontinence (10) Confusion Status: Acute (11) Encephalopathy acute Status: Acute Clinical Quality Measures DVT/VTE Risk/Contraindication: Risk Factor Score Per Nursin RFS Level Per Nursing on Admit: 4+=Very High MEÑO KONG DO Oct 22, 2018 12:56
--- NOTE | 2018-10-22 13:26 | Progress Note ---
Subjective Time Seen by a Provider: 12:03 Subjective/Events-last exam Pt seen and examined, more alert today. Denies abdominal pain, states he has a little bit of itching at central line site, but no other complaints. Review of Systems General: No Chills, No Night Sweats Pulmonary: No Dyspnea, No Cough Cardiovascular: No: Chest Pain, Palpitations Focused Exam Lactate Level 10/21/18 09:08: Lactic Acid Level 1.66 Objective Exam Vital Signs Date Time Temp Pulse Resp B/P (MAP) Pulse Ox O2 Delivery O2 Flow Rate FiO2 10/22/18 11:48 92 Nasal Cannula 1.00 10/22/18 11:35 97.8 78 16 113/74 (87) 93 Room Air 10/22/18 11:32 Room Air 10/22/18 07:59 93 Nasal Cannula 2.00 10/22/18 07:45 97.4 80 16 116/79 (91) 95 Room Air 10/22/18 04:33 97.6 81 20 112/76 (88) 95 Nasal Cannula 2.00 10/22/18 00:00 97.0 84 20 127/76 (93) 94 Nasal Cannula 2.00 10/21/18 20:44 97.2 93 20 139/82 (101) 96 Nasal Cannula 2.00 10/21/18 20:28 93 Nasal Cannula 2.00 10/21/18 19:00 Nasal Cannula 2.00 10/21/18 18:11 Nasal Cannula 3.00 10/21/18 16:45 97.2 90 21 134/76 (95) 95 Nasal Cannula 2.00 10/21/18 16:26 Nasal Cannula 2.00 I & O 10/22/18 07:00 Intake Total 1035 ml Output Total 300 ml Balance 735 ml Capillary Refill : Less Than 3 Seconds General Appearance: No Apparent Distress, WD/WN, Anxious HEENT: PERRL/EOMI, Moist Mucous Membranes Neck: Other (RIJ site looks good, no erythema) Respiratory: Chest Non Tender, No Accessory Muscle Use, No Respiratory Distress , Crackles, Decreased Breath Sounds, Wheezing Cardiovascular: Regular Rate, Rhythm, No Edema, No Murmur Gastrointestinal: normal bowel sounds, non tender, soft, no organomegaly, no pulsatile mass, other (pt has large scar just above umbilicus ) Extremity: No Calf Tenderness, No Pedal Edema Results Lab Laboratory Tests 3/2/19 15:13: Ammonia 36H, Valproic Acid (Depakene) Level 84.1 10/22/18 04:20: White Blood Count 10.5, Red Blood Count 4.44, Hemoglobin 13.6, Hematocrit 41, Mean Corpuscular Volume 91, Mean Corpuscular Hemoglobin 31, Mean Corpuscular Hemoglobin Concent 34, Red Cell Distribution Width 14.2, Platelet Count 143, Mean Platelet Volume 9.5, Neutrophils (%) (Auto) 61, Lymphocytes (%) (Auto) 19, Monocytes (%) (Auto) 15H, Eosinophils (%) (Auto) 2, Basophils (%) (Auto) 3, Neutrophils # (Auto) 6.4, Lymphocytes # (Auto) 2.0, Monocytes # (Auto) 1.5H, Eosinophils # (Auto) 0.2, Basophils # (Auto) 0.3H, Sodium Level 142, Potassium Level 3.8, Chloride Level 102, Carbon Dioxide Level 29, Anion Gap 11, Blood Urea Nitrogen 33H, Creatinine 1.03, Estimat Glomerular Filtration Rate > 60, BUN /Creatinine Ratio 32, Glucose Level 98, Calcium Level 9.0, Corrected Calcium 9.8 , Total Bilirubin 0.4, Aspartate Amino Transf (AST/SGOT) 50H, Alanine Aminotransferase (ALT/SGPT) 19, Alkaline Phosphatase 51, Total Protein 6.6, Albumin 3.0L Assessment/Plan Assessment/Plan Assessment/Plan Mental Status Changes Venous Insufficiency I reassessed central line site, looks good with no signs of infection. Max medical management; will sign off. Clinical Quality Measures DVT/VTE Risk/Contraindication: Risk Factor Score Per Nursin RFS Level Per Nursing on Admit: 4+=Very High JORDAN BRADFORD DO Oct 22, 2018 13:26
--- NOTE | 2018-10-22 15:33 | NUR ---
due to desatting to 89% and stayed low O2 was increased back up to 2 L NC at this time
--- NOTE | 2018-10-22 15:50 | NUR ---
Call from patient's sister, Mansi Almodovar. Mansi states that Telma Stevens is patient's estranged who is living in [place]. States that Patient's granddaughter, Ai Chao, is EVELYN. Call to [facility] for clarification and information regarding patients baseline function. Currently having difficulty feeding self and incontinent of urine. No answer. Message left. Will await return call. Addendum: 10/22/18 at 1641 by GLADYS KAUR RN [facility] [place]... not Tasha.
[2018-10-22 16:10] VITALS: BP 120/67
--- NOTE | 2018-10-22 16:41 | NUR ---
Return call from RN from [facility]. RN states that patient is his own guardian. LAURA listed on paperwork is Miladys Stevens, sister, and [phone]. RN states that family is hardly ever present and there are some "weird family dynamics". RN states that patient is normally alert and oriented, incontinent at times, max assist for transfers, and usually able to feed self. Addendum: 10/22/18 at 1746 by GLADYS KAUR RN Return call from RN at [facility].*
[2018-10-22 19:10] VITALS: BP 110/67
[2018-10-22] MEDS: AMITRIPTYLINE 25 MG (ELAVIL) TAB PO SCH (21:59)
[2018-10-22] MEDS: clonazePAM 1 MG (KlonoPIN) TAB PO SCH (22:00)
[2018-10-23] VITALS (7 sets, daily range): BP systolic 111–164; BP diastolic 62–90
[2018-10-23] MEDS: PIPERACILLIN/TAZO 4.5 GM/NS 100 ML IV SCH ×6 (00:30→17:07)
[2018-10-23] MEDS ORDERED: TROUGH ORDER-PHARMACY XX NR ×2 (03:00→15:00)
[2018-10-23] MEDS: VANCOMYCIN 1 GM/NS 250 ML IVPB IV SCH ×2 (04:36)
[2018-10-23] MEDS: RT-ALBUTEROL/IPRATROPIUM 3 ML (DUONEB) VIAL IH SCH ×4 (06:23→20:12)
[2018-10-23] MEDS: RT-ADVAIR HFA 115/21 MCG PER PUFF IH SCH ×2 (06:23→20:12)
[2018-10-23] MEDS: PANTOPRAZOLE 20 MG TABLET (PROTONIX) PO SCH (06:51)
[2018-10-23] MEDS: KCL 20 MEQ TAB (K-DUR) PO SCH (06:51)
[2018-10-23] MEDS: FUROSEMIDE 40 MG (LASIX) TAB PO SCH (09:44)
[2018-10-23] MEDS: DOCUSATE SODIUM 100 MG (COLACE) CAP PO SCH ×2 (09:44→20:36)
[2018-10-23] MEDS: OXYBUTYNIN (DITROPAN) 5 MG TAB PO SCH ×2 (09:44→20:35)
[2018-10-23] MEDS: DIVALPROEX 500 MG DELAYED RELEASE (DEPAKOTE) TAB PO SCH ×2 (09:44→20:36)
[2018-10-23] MEDS: GABAPENTIN 300 MG (NEURONTIN) CAP PO SCH ×2 (09:44→13:31)
[2018-10-23] MEDS: MEMANTINE 5 MG (NAMENDA) TABLET PO SCH (09:44)
[2018-10-23] MEDS: POLYETHYLENE GLYCOL 17 GM (MIRALAX) PACK PO SCH ×2 (09:44→20:35)
[2018-10-23] MEDS: LEVETIRACETAM 500 MG (KEPPRA) TAB PO SCH ×2 (09:44→20:35)
[2018-10-23] MEDS: cloNIDine 0.1 MG (CATAPRES) TAB PO SCH ×2 (09:44→20:35)
[2018-10-23] MEDS: clonazePAM 0.5 MG (KlonoPIN) TAB PO SCH (09:49)
--- NOTE | 2018-10-23 09:58 | NUR ---
TOBY/SHAKIR Mirza with [facility] called and stated that the patient's family members have been calling their facility all weekend claiming to be POA, she stated that the patient does not have POA and has capacity to make his own decisions. Yuki stated that there are "weird family dynamics", that their facility does not release information to the family unless Jasmeet confirms it is ok.
[2018-10-23] MEDS: ENOXAPARIN 40 MG/0.4 ML (LOVENOX) SYR SC SCH (11:27)
[2018-10-23] MEDS ORDERED: ALBU2.5V4 NEB (12:48)
[2018-10-23] MEDS ORDERED: SPIR25TA5 PO (12:48)
[2018-10-23] MEDS ORDERED: GBPN600T PO (12:48)
[2018-10-23] MEDS ORDERED: AZIT250T12 PO (12:48)
--- NOTE | 2018-10-23 12:50 | NUR ---
UPDATED MED REC WITH ORDER [facility]
--- NOTE | 2018-10-23 16:52 | Progress Note (SOAP) ---
Subjective Subjective/Events-last exam Afebrile, leukocytosis resolved. Minimally interactive. Review of Systems Date Seen by Provider: Oct 23, 2018 Time Seen by Provider: 10:48 Focused Exam Lactate Level 10/21/18 09:08: Lactic Acid Level 1.66 Objective Exam Last Set of Vital Signs Vital Signs Date Time Temp Pulse Resp B/P (MAP) Pulse Ox O2 Delivery O2 Flow Rate FiO2 10/23/18 15:45 96.6 71 20 118/79 (92) 98 Nasal Cannula 2.00 Capillary Refill : Less Than 3 Seconds I&O Intake and Output 10/23/18 00:00 Intake Total 1700 ml Output Total 300 ml Balance 1400 ml Intake Oral 1320 ml IV Total 380 ml Output Urine Total 300 ml # Voids 6 # Bowel Movements 1 General: Other (opens eyes to name and mumbles, but does not answer questions) Lungs: Normal Air Movement Heart: Regular Rate, No Murmurs Abdomen: Normal Bowel Sounds, Soft Extremities: Other (1+ edema) Neuro: Other (somnolent, mumbles in response to questions) Results/Procedures Lab Microbiology 10/21/18 Blood Culture - Preliminary, Resulted No growth Assessment/Plan Assessment/Plan (1) Seizure disorder Status: Chronic Assessment & Plan: Resume home Keppra, depakote and gabapentin. (2) Pneumonia Status: Acute Assessment & Plan: Started on vancomycin and zosyn. Leukocytosis resolved. D/C vancomycin with negative blood cultures x 48 hours. Qualifiers: Qualified Codes: J18.1 - Lobar pneumonia, unspecified organism (3) Confusion Status: Acute Assessment & Plan: Unknown baseline, has elevated ammonia and pneumonia, treating underlying condition and follow up closely. (4) Encephalopathy acute Status: Acute Assessment & Plan: CT head without acute changes, JUVENILE PROBATION OFFICER shunt appears patent on imaging. (5) JUVENILE PROBATION OFFICER (ventriculoperitoneal) shunt status Status: Chronic (6) DVT prophylaxis Status: Acute Assessment & Plan: Enoxaparin Clinical Quality Measures DVT/VTE Risk/Contraindication: Risk Factor Score Per Nursin RFS Level Per Nursing on Admit: 4+=Very High VERONIQUE GARCIA MD Oct 23, 2018 16:52
[2018-10-23] MEDS ORDERED: ENOXAPARIN 40 MG/0.4 ML (LOVENOX) SYR SC SCH (17:00)
[2018-10-23] MEDS: AMITRIPTYLINE 25 MG (ELAVIL) TAB PO SCH (20:35)
[2018-10-23] MEDS: clonazePAM 1 MG (KlonoPIN) TAB PO SCH (20:35)
[2018-10-23] MEDS: GABAPENTIN 600 MG (NEURONTIN) TAB PO SCH (20:36)
[2018-10-24] MEDS: PIPERACILLIN/TAZO 4.5 GM/NS 100 ML IV SCH ×6 (01:55→17:14)
[2018-10-24 03:55] VITALS: BP 101/68
[2018-10-24] MEDS: KCL 20 MEQ TAB (K-DUR) PO SCH (06:12)
[2018-10-24] MEDS: PANTOPRAZOLE 20 MG TABLET (PROTONIX) PO SCH (06:12)
[2018-10-24 06:33] LABS: HEMOGLOBIN 12.1 G/DL (13.3-17.7); MEAN PLATELET VOLUME 9.1 FL (7.4-10.4); RED CELL DISTRIBUTION WIDTH 13.8 % (10.0-14.5); WHITE BLOOD COUNT 8.4 10^3/uL (4.3-11.0)
[2018-10-24 07:04] LABS: ALANINE AMINOTRANSFERASE 17 U/L (0-55); ALBUMIN 2.6 GM/DL (3.2-4.5); ALKALINE PHOSPHATASE 44 U/L (40-136); BILIRUBIN,TOTAL 0.3 MG/DL (0.1-1.0); BUN/CREATININE RATIO 28; CALCIUM 8.8 MG/DL (8.5-10.1); CARBON DIOXIDE 31 MMOL/L (21-32); CHLORIDE 105 MMOL/L (98-107); CREATININE SERUM 0.72 MG/DL (0.60-1.30); GFR ESTIMATED > 60; GLUCOSE 80 MG/DL (70-105); POTASSIUM 3.8 MMOL/L (3.6-5.0); SODIUM 141 MMOL/L (135-145); TOTAL PROTEIN 5.8 GM/DL (6.4-8.2)
[2018-10-24] MEDS: RT-ADVAIR HFA 115/21 MCG PER PUFF IH SCH ×2 (07:56→19:34)
[2018-10-24] MEDS: RT-ALBUTEROL/IPRATROPIUM 3 ML (DUONEB) VIAL IH SCH ×4 (07:56→19:34)
[2018-10-24 08:00] VITALS: BP 110/77
[2018-10-24] MEDS: OXYBUTYNIN (DITROPAN) 5 MG TAB PO SCH ×2 (10:09→21:41)
[2018-10-24] MEDS: FUROSEMIDE 40 MG (LASIX) TAB PO SCH (10:10)
[2018-10-24] MEDS: SPIRONOLACTONE 25 MG (ALDACTONE) TAB PO SCH (10:10)
[2018-10-24] MEDS: MEMANTINE 5 MG (NAMENDA) TABLET PO SCH (10:10)
[2018-10-24] MEDS: DOCUSATE SODIUM 100 MG (COLACE) CAP PO SCH ×2 (10:10→21:41)
[2018-10-24] MEDS: cloNIDine 0.1 MG (CATAPRES) TAB PO SCH ×2 (10:10→21:41)
[2018-10-24] MEDS: GABAPENTIN 600 MG (NEURONTIN) TAB PO SCH ×3 (10:10→21:41)
[2018-10-24] MEDS: clonazePAM 0.5 MG (KlonoPIN) TAB PO SCH (10:10)
[2018-10-24] MEDS: LEVETIRACETAM 500 MG (KEPPRA) TAB PO SCH ×2 (10:11→21:43)
[2018-10-24] MEDS: DIVALPROEX 500 MG DELAYED RELEASE (DEPAKOTE) TAB PO SCH ×2 (10:11→21:42)
[2018-10-24] MEDS: POLYETHYLENE GLYCOL 17 GM (MIRALAX) PACK PO SCH ×2 (10:12→21:40)
--- NOTE | 2018-10-24 11:47 | Progress Note (SOAP) ---
Subjective Subjective/Events-last exam Afebrile, no acute events. Still on 2 lpm supplemental oxygen, unclear if baseline. Much more alert and answering questions appropriately. Review of Systems Date Seen by Provider: Oct 24, 2018 Time Seen by Provider: 08:27 Objective Exam Last Set of Vital Signs Vital Signs Date Time Temp Pulse Resp B/P (MAP) Pulse Ox O2 Delivery O2 Flow Rate FiO2 10/24/18 11:19 93 Nasal Cannula 2.00 10/24/18 08:00 97.2 79 17 110/77 (88) Capillary Refill : Less Than 3 Seconds I&O Intake and Output 10/23/18 23:59 Intake Total 1590 ml Output Total 275 ml Balance 1315 ml Intake Oral 1090 ml IV Total 500 ml Output Urine Total 275 ml # Voids 3 # Bowel Movements 2 General: Alert, No Acute Distress Lungs: Clear to Auscultation, Normal Air Movement Heart: Regular Rate, No Murmurs Neuro: Other (speech slightly difficult to understand but appropriate) Psych/Mental Status: Mood NL Results/Procedures Lab Laboratory Tests 10/24/18 06:25: White Blood Count 8.4, Red Blood Count 3.94L, Hemoglobin 12.1L, Hematocrit 36L, Mean Corpuscular Volume 92, Mean Corpuscular Hemoglobin 31, Mean Corpuscular Hemoglobin Concent 34, Red Cell Distribution Width 13.8, Platelet Count 170, Mean Platelet Volume 9.1, Sodium Level 141, Potassium Level 3.8, Chloride Level 105, Carbon Dioxide Level 31, Anion Gap 5, Blood Urea Nitrogen 20H, Creatinine 0.72, Estimat Glomerular Filtration Rate > 60, BUN/Creatinine Ratio 28, Glucose Level 80, Calcium Level 8.8, Corrected Calcium 9.9, Total Bilirubin 0.3, Aspartate Amino Transf (AST/SGOT) 39H, Alanine Aminotransferase (ALT/SGPT) 17, Alkaline Phosphatase 44, Total Protein 5.8L, Albumin 2.6L Microbiology 10/21/18 Blood Culture - Preliminary, Resulted No growth Assessment/Plan Assessment/Plan (1) Seizure disorder Status: Chronic Assessment & Plan: Resume home Keppra, depakote and gabapentin. (2) Pneumonia Status: Acute Assessment & Plan: Started on vancomycin and zosyn. Leukocytosis resolved. D/C vancomycin with negative blood cultures x 48 hours. 10/24 much improved clinically but still on 2 lpm supplemental oxygen and just now with improved mental status, will monitor for today and anticipate likely d/ c tomorrow Qualifiers: Qualified Codes: J18.1 - Lobar pneumonia, unspecified organism (3) Confusion Status: Acute Assessment & Plan: Unknown baseline, has elevated ammonia and pneumonia, treating underlying condition and follow up closely. 3/5 markedly improved today. Attempted to call for further discussion, went to voicemail. (4) Encephalopathy acute Status: Acute Assessment & Plan: CT head without acute changes, HOSPICE/HOME HEALTH AIDE shunt appears patent on imaging. (5) HOSPICE/HOME HEALTH AIDE (ventriculoperitoneal) shunt status Status: Chronic (6) DVT prophylaxis Status: Acute Assessment & Plan: Enoxaparin Clinical Quality Measures DVT/VTE Risk/Contraindication: Risk Factor Score Per Nursin RFS Level Per Nursing on Admit: 4+=Very High VERONIQUE GARCIA MD Oct 24, 2018 11:47
[2018-10-24 12:34] VITALS: BP 136/74
[2018-10-24] MEDS: ENOXAPARIN 40 MG/0.4 ML (LOVENOX) SYR SC SCH (13:38)
[2018-10-24 16:43] VITALS: BP 109/70
[2018-10-24 19:55] VITALS: BP 121/70
[2018-10-24] MEDS: clonazePAM 1 MG (KlonoPIN) TAB PO SCH (21:41)
[2018-10-24] MEDS: AMITRIPTYLINE 25 MG (ELAVIL) TAB PO SCH (21:42)
[2018-10-24 21:45] VITALS: BP 124/76
[2018-10-25] MEDS: PIPERACILLIN/TAZO 4.5 GM/NS 100 ML IV SCH ×4 (00:18→08:06)
[2018-10-25 00:21] VITALS: BP 104/70
[2018-10-25 04:52] VITALS: BP 104/71
[2018-10-25] MEDS: KCL 20 MEQ TAB (K-DUR) PO SCH (06:32)
[2018-10-25] MEDS: PANTOPRAZOLE 20 MG TABLET (PROTONIX) PO SCH (06:32)
[2018-10-25 06:48] LABS: HEMOGLOBIN 12.1 G/DL (13.3-17.7); RED CELL DISTRIBUTION WIDTH 13.8 % (10.0-14.5); WHITE BLOOD COUNT 8.8 10^3/uL (4.3-11.0)
[2018-10-25 07:13] LABS: ALANINE AMINOTRANSFERASE 17 U/L (0-55); ALBUMIN 2.8 GM/DL (3.2-4.5); ALKALINE PHOSPHATASE 38 U/L (40-136); BILIRUBIN,TOTAL 0.4 MG/DL (0.1-1.0); BUN/CREATININE RATIO 24; CALCIUM 8.9 MG/DL (8.5-10.1); CARBON DIOXIDE 29 MMOL/L (21-32); CHLORIDE 103 MMOL/L (98-107); CREATININE SERUM 0.76 MG/DL (0.60-1.30); GFR ESTIMATED > 60; GLUCOSE 85 MG/DL (70-105); POTASSIUM 4.3 MMOL/L (3.6-5.0); SODIUM 136 MMOL/L (135-145)
[2018-10-25] MEDS: RT-ALBUTEROL/IPRATROPIUM 3 ML (DUONEB) VIAL IH SCH ×3 (07:46→15:13)
[2018-10-25] MEDS: RT-ADVAIR HFA 115/21 MCG PER PUFF IH SCH (07:54)
[2018-10-25 08:00] VITALS: BP 106/74
[2018-10-25] MEDS: OXYBUTYNIN (DITROPAN) 5 MG TAB PO SCH (08:06)
[2018-10-25] MEDS: LEVETIRACETAM 500 MG (KEPPRA) TAB PO SCH (08:06)
[2018-10-25] MEDS: GABAPENTIN 600 MG (NEURONTIN) TAB PO SCH ×2 (08:06→12:23)
[2018-10-25] MEDS: FUROSEMIDE 40 MG (LASIX) TAB PO SCH (08:06)
[2018-10-25] MEDS: cloNIDine 0.1 MG (CATAPRES) TAB PO SCH (08:07)
[2018-10-25] MEDS: SPIRONOLACTONE 25 MG (ALDACTONE) TAB PO SCH (08:07)
[2018-10-25] MEDS: DOCUSATE SODIUM 100 MG (COLACE) CAP PO SCH (08:07)
[2018-10-25] MEDS: MEMANTINE 5 MG (NAMENDA) TABLET PO SCH (08:07)
[2018-10-25] MEDS: DIVALPROEX 500 MG DELAYED RELEASE (DEPAKOTE) TAB PO SCH (08:17)
[2018-10-25] MEDS: POLYETHYLENE GLYCOL 17 GM (MIRALAX) PACK PO SCH (08:17)
[2018-10-25] MEDS: clonazePAM 0.5 MG (KlonoPIN) TAB PO SCH (08:17)
[2018-10-25 12:00] VITALS: BP 108/75
[2018-10-25] MEDS: ENOXAPARIN 40 MG/0.4 ML (LOVENOX) SYR SC SCH (12:23)
[2018-10-25] MEDS ORDERED: CEFD300C3 PO (13:46)
--- NOTE | 2018-10-25 13:49 | Discharge Instructions ---
Discharge [facility] Discharge Medications New, Converted or Re-Newed RX: Transmitted to Pharmacy New Medications: Cefdinir (Cefdinir) 300 Mg Capsule 300 MG PO BID, #14 CAP 0 Refills Continued Medications: Albuterol Sulfate (Proair Hfa) 1 Puff Puff 2 PUFF IH Q4H PRN for SHORTNESS OF BREATH, INHALER 1 PUFF = 90 MCG Albuterol Sulfate (Albuterol Sulfate) 2.5 Mg/3 Ml Vial.neb 2.5 MG NEB QID for 7 Days, EA 7 DAY [facility] START DATE 10-17-18 END DATE 10-24-18 Amitriptyline HCl (Amitriptyline HCl) 25 Mg Tablet 50 MG PO HS, TAB TAKES 2 (25MG) TABLETS Cetirizine HCl (Zyrtec) 10 Mg Tablet 10 MG PO DAILY PRN for ALLERGIES, TAB Clonazepam (Clonazepam) 0.5 Mg Tablet 0.5 MG PO DAILY, TAB Clonazepam (Clonazepam) 1 Mg Tablet 1 MG PO HS, TAB Clonidine HCl (Clonidine HCl) 0.1 Mg Tablet 0.1 MG PO BID, TAB Divalproex Sodium (Divalproex Sodium) 500 Mg Tablet.dr 1500 MG PO BID, TAB TAKES 3 (500MG) TABLETS Docusate Sodium (Colace) 100 Mg Capsule 100 MG PO BID, CAP Fluticasone/Salmeterol (Advair 500-50 Diskus) 1 Each Blst.w.dev 1 PUFF INH BID, INHALER Furosemide (Furosemide) 40 Mg Tablet 40 MG PO DAILY, TAB Gabapentin (Gabapentin) 600 Mg Tablet 600 MG PO TID, TAB Levetiracetam (Levetiracetam) 500 Mg Tablet 1500 MG PO BID, TAB TAKES 3 (500MG) TABLETS Magnesium Hydroxide (Milk of Magnesia) 400 Mg/5 Ml Oral.susp 30 ML PO DAILY PRN for CONSTIPATION-7TH LINE, ML Memantine HCl (Memantine HCl) 5 Mg Tablet 5 MG PO DAILY, TAB Menthol (Biofreeze) 118 Ml Gel..ml. TP HS, TUBE APPLY TO BILATERAL ANKLES Naproxen (Naproxen) 500 Mg Tablet 500 MG PO Q12H PRN for PAIN-MILD, TAB Omeprazole (Omeprazole) 20 Mg Capsule.dr 20 MG PO DAILY, CAP Oxybutynin Chloride (Oxybutynin Chloride ER) 5 Mg Tab.er.24 5 MG PO DAILY, TAB Oxycodone HCl/Acetaminophen (Oxycodon-Acetaminophen 7.5-325) 1 Each Tablet 1 TAB PO Q6H PRN for PAIN-MODERATE, TAB Potassium Chloride (Potassium Chloride) 20 Meq Tab.er.prt 20 MEQ PO DAILY, TAB Spironolactone (Spironolactone) 25 Mg Tablet 25 MG PO DAILY, TAB Discontinued Medications: Azithromycin (Azithromycin) 250 Mg Tablet 250 MG PO DAILY for 2 Days, TAB START DATE 10-20-18 END DATE 10-22-18 Patient Instructions Goal/Follow Up Appt: Barbie Phillips APRN will see you at the long term. Return to The Hospital For: Fever, difficulty breathing, confusion Activity & Diet Activity as Tolerated: Yes Copy Copies To 1: SHAWN Cloud BETHANY N MD Oct 25, 2018 13:49
--- NOTE | 2018-10-25 14:45 | NUR ---
CM/SS spoke with the RN for the patient at [facility]. She will find out a transport time and get back to this clinical writer. Faxed discharge information.
--- NOTE | 2018-10-25 14:50 | Discharge Summary ---
Diagnosis/Chief Complaint Date of Admission Oct 21, 2018 at 10:40 Date of Discharge Oct 25, 2018 Admission Diagnosis Admission Diagnosis See problem list Discharge Diagnosis See problem list Problems/Diagnosis: (1) Pneumonia Assessment & Plan: Started on vancomycin and zosyn. Leukocytosis resolved. D/C vancomycin with negative blood cultures x 48 hours. 3/5 much improved clinically but still on 2 lpm supplemental oxygen and just now with improved mental status, will monitor for today and anticipate likely d/ c tomorrow 3/6 discharged with cefdinir and on baseline 2 lpm supplemental oxygen. Qualifiers: Qualified Codes: J18.1 - Lobar pneumonia, unspecified organism Status: Acute (2) Confusion Assessment & Plan: Unknown baseline, has elevated ammonia and pneumonia, treating underlying condition and follow up closely. 3/5 markedly improved today. Attempted to call for further discussion, went to voicemail. Status: Acute (3) Seizure disorder Assessment & Plan: Resumed home Keppra, depakote and gabapentin. Status: Chronic (4) Encephalopathy acute Assessment & Plan: CT head without acute changes, COLOR ADVISER shunt appears patent on imaging. Status: Acute (5) COLOR ADVISER (ventriculoperitoneal) shunt status Status: Chronic Chief Complaint/HPI Chief Complaint/HPI From Dr. Tejeda's H&P: This is a 53yoWM fpc patient of [facility] who was last admitted 07/09 for pneumonia presents to the ER w/fever and AMS and found to have pneumonia. Patient unable to provide any hx due to confusion and lethargy. Poor venous access so central line will be requested. Reviewed VT meds and restarted most adrianna seizure meds. Discharge Summary-Simple/Stand Consultations Discharge Physical Examination Allergies: Coded Allergies: morphine (Unverified Adverse Reaction, Unknown, 07/01/18) Vitals & I&Os Vital Sign - Last 12Hours Date Time Temp Pulse Resp B/P (MAP) Pulse Ox O2 Delivery O2 Flow Rate FiO2 10/25/18 12:00 98.6 80 18 108/75 (86) 92 Nasal Cannula 2.00 Intake and Output 10/25/18 00:00 Intake Total 810 ml Balance 810 ml General Appearance: Alert, No Acute Distress Respiratory: Clear to Auscultation, Normal Air Movement Cardiovascular: Regular Rate, No Murmurs Psych/Mental Status: Other (alert and oriented to self and "hospital") Hospital Course See final discharge diagnosis. Labs Laboratory Tests Test 10/24/18 06:25 10/25/18 06:35 Range/Units White Blood Count 8.4 8.8 4.3-11.0 10^3/uL Red Blood Count 3.94 L 4.03 L 4.35-5.85 10^6/uL Hemoglobin 12.1 L 12.1 L 13.3-17.7 G/DL Hematocrit 36 L 37 L 40-54 % Mean Corpuscular Volume 92 91 80-99 FL Mean Corpuscular Hemoglobin 31 30 25-34 PG Mean Corpuscular Hemoglobin Concent 34 33 32-36 G/DL Red Cell Distribution Width 13.8 13.8 10.0-14.5 % Platelet Count 170 183 130-400 10^3/uL Mean Platelet Volume 9.1 9.0 7.4-10.4 FL Sodium Level 141 136 135-145 MMOL/L Potassium Level 3.8 4.3 3.6-5.0 MMOL/L Chloride Level 105 103 98-107 MMOL/L Carbon Dioxide Level 31 29 21-32 MMOL/L Anion Gap 5 4 L 5-14 MMOL/L Blood Urea Nitrogen 20 H 18 7-18 MG/DL Creatinine 0.72 0.76 0.60-1.30 MG/DL Estimat Glomerular Filtration Rate > 60 > 60 BUN/Creatinine Ratio 28 24 Glucose Level 80 85 70-105 MG/DL Calcium Level 8.8 8.9 8.5-10.1 MG/DL Corrected Calcium 9.9 9.9 8.5-10.1 MG/DL Total Bilirubin 0.3 0.4 0.1-1.0 MG/DL Aspartate Amino Transf (AST/SGOT) 39 H 43 H 5-34 U/L Alanine Aminotransferase (ALT/SGPT) 17 17 0-55 U/L Alkaline Phosphatase 44 38 L 40-136 U/L Total Protein 5.8 L 6.0 L 6.4-8.2 GM/DL Albumin 2.6 L 2.8 L 3.2-4.5 GM/DL Discharge Instructions to patient/family Please see electronic discharge instructions given to patient. Discharge Medications Reviewed and agree with Discharge Medication list on patient's Discharge Instruction sheet Clinical Quality Measures DVT/VTE Risk/Contraindication: Risk Factor Score Per Nursin RFS Level Per Nursing on Admit: 4+=Very High Copy Copies To 1: SHAWN Cloud BETHANY N MD Oct 25, 2018 14:49
--- NOTE | 2018-10-25 15:00 | NUR ---
CM/SHAKIR [facility] will transport the patient back to their facility this day around 1530.
[2018-10-25 17:36] VITALS: BP 108/75
== END 2018-10-25 17:45 | DRG 871 ==
LOC: EDUNIT# 08:23 → ER 08:23 → 4TH 10:40
PROVIDERS: ADMIT Internal Medicine; ATTEND Internal Medicine
PROC: 02HV33Z Insertion of Infusion Device into Superior Vena Cava, Percutaneous Approach (ICD-10-PCS; principal; 2018-10-21)
DX: A41.9 Sepsis, unspecified organism (principal); J18.1 Lobar pneumonia, unspecified organism; J44.0 Chronic obstructive pulmonary disease with (acute) lower respiratory infection; B58.9 Toxoplasmosis, unspecified; G93.40 Encephalopathy, unspecified; Z98.2 Presence of cerebrospinal fluid drainage device; R41.82 Altered mental status, unspecified; R09.02 Hypoxemia; I87.2 Venous insufficiency (chronic) (peripheral); R32 Unspecified urinary incontinence; F02.80 Dementia in other diseases classified elsewhere, unspecified severity, without behavioral disturbance, psychotic disturbance, mood disturbance, and anxiety; F41.9 Anxiety disorder, unspecified; F32.9 Major depressive disorder, single episode, unspecified; G89.4 Chronic pain syndrome; K21.9 Gastro-esophageal reflux disease without esophagitis; G40.909 Epilepsy, unspecified, not intractable, without status epilepticus; I10 Essential (primary) hypertension; M19.91 Primary osteoarthritis, unspecified site; Z87.891 Personal history of nicotine dependence
CPT/HCPCS: 36415; 70450; 71045; 74176; 80053; 80164; 82140; 82962; 83605; 83690; 84484; 85007; 85025; 85027; 87040; 93005; 94010; 94640; 94760; 96374

== ENCOUNTER 2018-11-09 23:45 | Observation (INO) | payer MEDICAID | END 2018-11-11 14:18 | LOC: ER 23:45 → 4TH 11-10 02:48 ==

== ENCOUNTER → 2019-01-01 | Outpatient (CLI) | payer MEDICAID ==
[~2019-01-01] MED LIST changes: +ALBU2.5V4 NEB; +AZIT250T12 PO; +CEFD300C3 PO; +GBPN600T PO; +SPIR25TA5 PO
[2019-01-01 20:08] LABS: CLARITY,URINE CLEAR; COLOR,URINE YELLOW
[2019-01-01 20:09] LABS: BACTERIA,URINE MODERATE /HPF; BILIRUBIN,URINE NEGATIVE (NEGATIVE); GLUCOSE, URINE (UA) NEGATIVE (NEGATIVE); HYALINE CASTS, URINE 25-50 /LPF; KETONES,URINE NEGATIVE (NEGATIVE); LEUKOCYTE ESTERASE ,URINE 1+ (NEGATIVE); NITRITE,URINE POSITIVE (NEGATIVE); PH,URINE 6 (5-9); PROTEIN,URINE NEGATIVE (NEGATIVE); RBC,URINE RARE /HPF; UROBILINOGEN,URINE 1 MG/DL (NORMAL)
== END ==
PROVIDERS: ATTEND Internal Medicine
DX: N28.9 Disorder of kidney and ureter, unspecified (principal); R41.0 Disorientation, unspecified
CPT/HCPCS: 81000; 87077; 87088; 87186

== ENCOUNTER 2019-05-17 13:56 | Observation (INO) | payer MEDICAID ==
[2019-05-17] VITALS (7 sets, daily range): BP systolic 106–137; BP diastolic 77–96
[~2019-05-17] VITALS: Ht 172 cm; Wt 81.6 kg
[~2019-05-17 13:56] MED LIST changes: -OMEP20CA12 PO; +OMEP20CA13 PO
[2019-05-17] MEDS ORDERED: LACTATED RINGERS 1,000 ML IV ONE (14:21)
--- NOTE | 2019-05-17 14:39 | ED General ---
General Chief Complaint: Neurological Problems Stated Complaint: HIGH GLUCOSE LEVELS Nursing Triage Note: ARRIVED VIA WC TO ROOM 05. GENERALIZED INCREASE IN WEAKNESS OVER LAST TWO WEEKS. ABNORMAL LAB RESULTS YESTERDAY IN CLUDING A HIGH GLUCOSE. Nursing Sepsis Screen: No Definite Risk Source of Information: Patient, Caregiver Exam Limitations: Physical Impairments (SAUD HUNTER MED STUDENT) History of Present Illness Date Seen by Provider: May 17, 2019 Time Seen by Provider: 14:20 Initial Comments The patient is a confused 54 y/o male who is here with a chief complaint of increased weakness. The patient is here from [facility] with a caregiver. Much of the interview is conducted with the caregiver as the patient is moderately confused and difficult to understand. The caregiver reports that the patient has become increasingly confused and weaker over the past few days. She also mentions that he fell and hit his head on Tuesday. She reports that he had labs drawn yesterday that were "abnormal". The caregiver and patient deny nausea, vomiting, fever, or shortness of breath. Timing/Duration: 1 Week Associated Systoms: No Cough, No Fever/Chills (SAUD HUNTER MED STUDENT) Initial Comments Here with report of increasing weakness over the last 1-2 days. Apparently had a fall and hit his head last Tuesday. Patient does have a history of traumatic brain injury. senior living facility staff reports that he's had some increasing confusion and weakness. No dysuria. Labs from recent show elevated blood sugar in the range of 300. Timing/Duration: 6-7 Days Severity: Mild Modifying Factors: improves with Rest Associated Systoms: No Chest Pain, No Cough, No Fever/Chills, No Headaches, No Nausea/Vomiting, No Shortness of Air; Weakness (DAVE WHITE MD) Allergies and Home Medications Allergies Coded Allergies: morphine (Unverified Adverse Reaction, Unknown, 07/01/18) Home Medications Albuterol Sulfate 1 Puff Puff, 2 PUFF IH Q4H PRN for SHORTNESS OF BREATH, (Reported) 1 PUFF = 90 MCG Albuterol Sulfate 2.5 Mg/3 Ml Vial.neb, 2.5 MG NEB QID, (Reported) 7 DAY THEARPY START DATE 10-17-18 END DATE 10-24-18 Amitriptyline HCl 25 Mg Tablet, 50 MG PO HS, (Reported) TAKES 2 (25MG) TABLETS Cetirizine HCl 10 Mg Tablet, 10 MG PO DAILY PRN for ALLERGIES, (Reported) Clonazepam 0.5 Mg Tablet, 0.5 MG PO DAILY, (Reported) Clonazepam 1 Mg Tablet, 1 MG PO HS, (Reported) Clonidine HCl 0.1 Mg Tablet, 0.1 MG PO BID, (Reported) Divalproex Sodium 500 Mg Tablet.dr, 1,500 MG PO BID, (Reported) TAKES 3 (500MG) TABLETS Docusate Sodium 100 Mg Capsule, 100 MG PO BID, (Reported) Fluticasone/Salmeterol 1 Each Blst.w.dev, 1 PUFF INH BID, (Reported) Furosemide 40 Mg Tablet, 40 MG PO DAILY, (Reported) Gabapentin 600 Mg Tablet, 600 MG PO TID, (Reported) Levetiracetam 500 Mg Tablet, 1,500 MG PO BID, (Reported) TAKES 3 (500MG) TABLETS Magnesium Hydroxide 400 Mg/5 Ml Oral.susp, 30 ML PO DAILY PRN for CONSTIPATION- 7TH LINE, (Reported) Memantine HCl 5 Mg Tablet, 5 MG PO DAILY, (Reported) Menthol 118 Ml Gel..ml., TP HS, (Reported) APPLY TO BILATERAL ANKLES Naproxen 500 Mg Tablet, 500 MG PO Q12H PRN for PAIN-MILD, (Reported) Omeprazole 20 Mg Capsule.dr, 20 MG PO DAILY, (Reported) Oxybutynin Chloride 5 Mg Tab.er.24, 5 MG PO DAILY, (Reported) Oxycodone HCl/Acetaminophen 1 Each Tablet, 1 TAB PO Q6H PRN for PAIN-MODERATE, (Reported) Potassium Chloride 20 Meq Tab.er.prt, 20 MEQ PO DAILY, (Reported) Spironolactone 25 Mg Tablet, 25 MG PO DAILY, (Reported) Patient Home Medication List Home Medication List Reviewed: Yes (DAVE WHITE MD) Review of Systems Review of Systems Constitutional: No fever, No malaise; weakness EENTM: No blurred vision, No double vision Respiratory: No cough, No short of breath Cardiovascular: No chest pain, No palpitations (SAUD HUNTER MED STUDENT) Constitutional: see HPI EENTM: no symptoms reported Respiratory: no symptoms reported Cardiovascular: No chest pain, No palpitations Gastrointestinal: No abdominal pain, No nausea, No vomiting Genitourinary: no symptoms reported Musculoskeletal: no symptoms reported Skin: no symptoms reported Psychiatric/Neurological: See HPI Hematologic/Lymphatic: No Symptoms Reported (DAVE WHITE MD) All Other Systems Reviewed Negative Unless Noted: Yes (DAVE WHITE MD) Past Ekndvxc-Zjxsqs-Bxzomw Hx Past Med/Social Hx: Reviewed Nursing Past Med/Soc Hx (DAVE WHITE MD) Patient Social History Alcohol Use: Denies Use Recreational Drug Use: Yes Drug of Choice: POT Smoking Status: Current Everyday Smoker Type Used: Cigarettes Recent Foreign Travel: No Contact w/Someone Who Travel: No Recent Infectious Disease Expo: No Recent Hopitalizations: No (SAUD HUNTER STUDENT) Immunizations Up To Date Tetanus Booster (TDap): Unknown Date of Influenza Vaccine: Jun 26, 2018 (SAUD HUNTER) Seasonal Allergies Seasonal Allergies: Yes (SAUD HUNTER) Past Medical History Surgeries: Yes Brain Shunt Respiratory: Yes Asthma, Pneumonia, COPD Currently Using CPAP: No Currently Using BIPAP: No Cardiac: Yes Hypertension Neurological: Yes (VENTRICULOPERITONEAL SHUNT, history of toxoplasmosis) Dementia, Headaches /Migraines, Seizure Disorder, Vertigo Reproductive Disorders: No Genitourinary: No Gastrointestinal: Yes Gastroesophageal Reflux Musculoskeletal: Yes (GEN MUSCLE WEAKNESS) Arthritis Endocrine: No HEENT: No Cancer: No Psychosocial: Yes Anxiety, PTSD, Depression Integumentary: No Blood Disorders: No Adverse Reaction/Blood Tranf: No (SAUD HUNTER) Family Medical History Reviewed Nursing Family Hx (DAVE WHITE MD) Cancer, Diabetes (SAUD HUNTER) Physical Exam Vital Signs Vital Signs - First Documented 05/17/19 14:00 Temp 36.7 Pulse 92 Resp 16 B/P (MAP) 98/86 (90) Pulse Ox 91 O2 Delivery Room Air (DAVE WHITE MD) Vital Signs Capillary Refill : Less Than 3 Seconds (SAUD HUNTER STUDENT) Height, Weight, BMI Height: 5'8.00" Weight: 182lbs. 12.8oz. [id number]; 28.00 BMI Method:Estimated General Appearance: No Apparent Distress, WD/WN HEENT: PERRL/EOMI, Moist Mucous Membranes; No Photophobia Respiratory: Chest Non Tender, Lungs Clear, Normal Breath Sounds Cardiovascular: Regular Rate, Rhythm, No Murmur Gastrointestinal: Normal Bowel Sounds, Non Tender, Soft Extremity: Normal Capillary Refill Neurologic/Psychiatric: Alert; No Normal Mood/Affect; Depressed Affect, Disoriented Skin: Normal Color, Warm/Dry (SAUD HUNTER STUDENT) General Appearance: No Apparent Distress, Chronically ill HEENT: PERRL/EOMI, Moist Mucous Membranes; No Pharyngeal Erythema Neck: Full Range of Motion, Normal Inspection, Non Tender, Supple Respiratory: Lungs Clear, Normal Breath Sounds Cardiovascular: Regular Rate, Rhythm, No Murmur Gastrointestinal: Non Tender, Soft Extremity: Normal Capillary Refill, Non Tender Neurologic/Psychiatric: Alert, Depressed Affect, Disoriented (somewhat confused to situation but answers questions otherwise and follow simple commands) Skin: Normal Color, Warm/Dry (DAVE WHITE MD) Procedures/Interventions Suture Size: 4-0 (SAUD HUNTER STUDENT) Progress/Results/Core Measures Suspected Sepsis Recent Fever Within 48 Hours: No Infection Criteria Present: Suspected New Infection New/Unexplained Altered Menta: No Sepsis Screen: No Definite Risk SIRS Temperature: Pulse: 92 Respiratory Rate: 16 Laboratory Tests 05/17/19 14:05: Blood Pressure 98 /86 Mean: 90 Laboratory Tests 05/17/19 14:05: (SAUD HUNTER STUDENT) Results/Orders Lab Results Laboratory Tests Test 05/17/19 14:05 05/17/19 14:42 05/17/19 15:10 Range/Units Sodium Level 137 135-145 MMOL/L Potassium Level 3.7 3.6-5.0 MMOL/L Chloride Level 84 L 98-107 MMOL/L Carbon Dioxide Level 39 H 21-32 MMOL/L Anion Gap 14 5-14 MMOL/L Blood Urea Nitrogen 39 H 7-18 MG/DL Creatinine 1.38 H 0.60-1.30 MG/DL Estimat Glomerular Filtration Rate 54 BUN/Creatinine Ratio 28 Glucose Level 169 H 70-105 MG/DL Glucometer 177 H 70-110 MG/DL Calcium Level 10.2 H 8.5-10.1 MG/DL Corrected Calcium 10.0 8.5-10.1 MG/DL Magnesium Level 2.4 1.6-2.4 MG/DL Total Bilirubin 0.4 0.1-1.0 MG/DL Aspartate Amino Transf (AST/SGOT) 55 H 5-34 U/L Alanine Aminotransferase (ALT/SGPT) 44 0-55 U/L Alkaline Phosphatase 84 40-136 U/L C-Reactive Protein High Sensitivity 0.79 H 0.00-0.50 MG/DL Total Protein 8.6 H 6.4-8.2 GM/DL Albumin 4.3 3.2-4.5 GM/DL White Blood Count 9.6 4.3-11.0 10^3/uL Red Blood Count 5.40 4.35-5.85 10^6/uL Hemoglobin 16.1 13.3-17.7 G/DL Hematocrit 47 40-54 % Mean Corpuscular Volume 87 80-99 FL Mean Corpuscular Hemoglobin 30 25-34 PG Mean Corpuscular Hemoglobin Concent 34 32-36 G/DL Red Cell Distribution Width 13.3 10.0-14.5 % Platelet Count 306 130-400 10^3/uL Mean Platelet Volume 10.0 7.4-10.4 FL Neutrophils (%) (Auto) 51 42-75 % Lymphocytes (%) (Auto) 36 12-44 % Monocytes (%) (Auto) 12 0-12 % Eosinophils (%) (Auto) 1 0-10 % Basophils (%) (Auto) 0 0-10 % Neutrophils # (Auto) 4.9 1.8-7.8 X 10^3 Lymphocytes # (Auto) 3.5 1.0-4.0 X 10^3 Monocytes # (Auto) 1.1 H 0.0-1.0 X 10^3 Eosinophils # (Auto) 0.1 0.0-0.3 10^3/uL Basophils # (Auto) 0.0 0.0-0.1 10^3/uL Urine Color YELLOW Urine Clarity CLEAR Urine pH 7 5-9 Urine Specific [place] 1.005 L 1.016-1.022 Urine Protein NEGATIVE NEGATIVE Urine Glucose (UA) 2+ H NEGATIVE Urine Ketones NEGATIVE NEGATIVE Urine Nitrite NEGATIVE NEGATIVE Urine Bilirubin NEGATIVE NEGATIVE Urine Urobilinogen NORMAL NORMAL MG/DL Urine Leukocyte Esterase NEGATIVE NEGATIVE Urine RBC (Auto) 4+ H NEGATIVE Urine RBC >100 H /HPF Urine WBC NONE /HPF Urine Squamous Epithelial Cells 0-2 /HPF Urine Crystals NONE /LPF Urine Bacteria TRACE /HPF Urine Casts NONE /LPF Urine Hyaline Casts 10-25 H /LPF Urine Mucus NEGATIVE /LPF Urine Culture Indicated NO (DAVE WHITE MD) My Orders Orders - DAVE WHITE MD Cbc With Automated Diff (05/17/19 14:21) Comprehensive Metabolic Panel (05/17/19 14:21) Hs C Reactive Protein (05/17/19 14:21) Magnesium (05/17/19 14:21) Ua Culture If Indicated (05/17/19 14:21) Ed Iv/Invasive Line Start (05/17/19 14:21) Lactated Ringers (Lr 1000 Ml Iv Solution (05/17/19 14:21) Chest 1 View, Ap/Pa Only (05/17/19 14:21) Accucheck Stat ONCE (05/17/19 14:25) Ct Head Wo (05/17/19 14:26) (DAVE WHITE MD) Medications Given in ED Current Medications Medications Dose Ordered Sig/Davin Route Start Time Stop Time Status Last Admin Dose Admin Lactated Ringer's 1,000 ml @ 0 mls/hr Q0M ONCE IV 05/17/19 14:21 05/17/19 14:24 DC 05/17/19 14:48 1,000 MLS/HR (DAVE WHITE MD) Vital Signs/I&O 05/17/19 14:00 Temp 36.7 Pulse 92 Resp 16 B/P (MAP) 98/86 (90) Pulse Ox 91 O2 Delivery Room Air (DAVE WHITE MD) Vital Signs/I&O Capillary Refill : Less Than 3 Seconds (SAUD HUNTER MED STUDENT) Blood Pressure Mean: 90 Point of Care Testing Finger Stick Blood Glucose: 177 (SAUD HUNTER MED STUDENT) Progress Note : Time: 14:40 Progress Note The patient is resting comfortably in the exam room. He will be evaluated with CT head due to recent fall and plain chest radiograph. Laboratory analysis will consist of CBC, CMP, CRP, UA, and CRP. (SAUD HUNTER MED STUDENT) Progress Note : Progress Note Have seen and evaluated the patient and agree with above except as indicated. I have directed the plan of care. IV, labs, UA, CT head and LR 1 L bolus ordered. Fingerstick blood sugar ordered. Monitor patient. 1604: I discussed the case with Dr. Alamo. He is recommending admission to ICU with every hour neuro checks and repeat CT scan at 4 AM and or when necessary with mental status changes. Request consult with medicine and pulmonology. I did discuss the case with Dr. Tejeda and Dr. Carrion who accepted consult. CT head is positive for bilateral subacute subdural hematomas so we will continue to evaluate for that. Admit, observation status. Patient and family verbalize understanding instructions and agreement with plan. I did talk on the phone with the patient's sister as well as his . They are in agreement as well. (DAVE WHITE MD) Diagnostic Imaging Diagonstic Imaging: Xray Plain Films/CT/US/NM/MRI: chest Comments [facility] [place] [place] NAME: JULIANA BENJAMIN [facility] REC#: [id number] PT STATUS: REG ER : 1965 PHYSICIAN: DAVE WHITE MD ADMIT DATE: 05/17/19/ER Draft Date of Exam:05/17/19 CHEST 1 VIEW, AP/PA ONLY INDICATION: Increasing weakness. Semi-upright portable AP view of the chest is obtained with comparison made to study of 11/10/2018. FINDINGS: Heart size and pulmonary vascularity are within normal limits, and the lungs are clear, bilaterally. IMPRESSION: Unremarkable chest. Dictated on workstation # [id number] Dict: 05/17/19 1512 Trans: 05/17/19 1514 [id number] Interpreted by: DEON TATE MD Electronically signed by: Diagonstic Imaging: CT Plain Films/CT/US/NM/MRI: head Comments [facility] [place] NAME: JULIANA BENJAMIN [facility] REC#: [id number] PT STATUS: REG ER : 1965 PHYSICIAN: DAVE WHITE MD ADMIT DATE: 05/17/19/ER Draft Date of Exam:05/17/19 CT HEAD WO CLINICAL INDICATION: Patient has increased weakness x2 weeks. Abnormal lab results yesterday. Patient with history of toxoplasmosis and right-sided shunt. EXAM: Axial CT scan of the brain performed without IV contrast. Auto Exposure Controls were utilized during the CT exam to meet ALARA standards for radiation dose reduction. COMPARISON: Head CT without contrast dated 10/21/2018. FINDINGS: There is interval development of minimal isodense fluid in the subdural regions bilaterally with right-sided measuring 3 mm and left side measuring 2 mm. There is no brain herniation or midline shift. There are stable diffuse confluent low-attenuation white matter changes throughout both cerebral hemispheres and suspected parenchymal resection changes involving the right temporal lobe. There is encephalomalacia in the right frontal lobe and right temporal lobe regions as well. There is stable position of the ventricular shunt entering the right posterior aspect of the head with tip crossing midline and tip overlying the midportion of left lateral ventricle. There is stable enlargement of the left lateral ventricle measuring 2.4 cm in transverse dimension. There is diffuse brain parenchymal volume loss which is stable. There are postop changes to the skull and multiple philomena hole craniotomies and right skull craniotomy changes. Paranasal sinuses and mastoid air cells show no other significant abnormality. IMPRESSION: 1: There is interval development of isodense bilateral subdural fluid collections which may represent subacute or subdural hematomas. There is no significant brain herniation or midline shift. 2: Otherwise, the remainder of the brain parenchyma and postop changes are stable. 3: Stable ventricular shunt with stable ventricle sizes. Stable prominence of the left lateral ventricle. 4: Stable appearance of the chronic brain parenchymal changes from postop and encephalomalacia and/or gliotic changes. Results of this report were discussed with Dr. Dave White via the telephone on 05/17/2019 at 1510 hrs. Dictated on workstation # [id number] Dict: 05/17/19 1502 Trans: 05/17/19 1524 [facility] [id number] Interpreted by: SARI LINO MD Electronically signed by: (DAVE WHITE MD) Departure Communication (Admissions) Time/Spoke to Admitting Phy: 15:57 Time/Spoke to Consulting Phy: 16:03 (DAVE WHITE MD) Impression Primary Impression: Subacute subdural hematoma Additional Impression: Dehydration Disposition: 09 ADMITTED INPATIENT Condition: Stable Admissions Decision to Admit Reason: Admit from ER (General) Decision to Admit/Date: May 17, 2019 Time/Decision to Admit Time: 15:56 (DAVE WHITE MD) Departure-Patient Inst. Referrals: JULIANA WINSLOW MD (PCP) Primary Care Physician ESTEPHANIA IVAN (Family) Primary Care Physician SAUD HUNTER MED STUDENT May 17, 2019 14:39 DAVE WHITE MD May 17, 2019 16:12
[2019-05-17 14:48] LABS: ALBUMIN 4.3 GM/DL (3.2-4.5); BILIRUBIN,TOTAL 0.4 MG/DL (0.1-1.0); CALCIUM 10.2 MG/DL (8.5-10.1); CREATININE SERUM 1.38 MG/DL (0.60-1.30); MAGNESIUM 2.4 MG/DL (1.6-2.4); POTASSIUM 3.7 MMOL/L (3.6-5.0); TOTAL PROTEIN 8.6 GM/DL (6.4-8.2)
[2019-05-17 14:50] LABS: BASOPHILS % (AUTO) 0 % (0-10); EOSINOPHILS # (AUTO) 0.1 10^3/uL (0.0-0.3); EOSINOPHILS % (AUTO) 1 % (0-10); HEMATOCRIT 47 % (40-54); HEMOGLOBIN 16.1 G/DL (13.3-17.7); LYMPHOCYTES # (AUTO) 3.5 X 10^3 (1.0-4.0); LYMPHOCYTES % (AUTO) 36 % (12-44); MEAN CORPUSCULAR HEMOGLOBIN 30 PG (25-34); MEAN CORPUSCULAR HGB CONC 34 G/DL (32-36); MEAN CORPUSCULAR VOLUME 87 FL (80-99); MONOCYTES # (AUTO) 1.1 X 10^3 (0.0-1.0); MONOCYTES % (AUTO) 12 % (0-12); NEUTROPHILS # (AUTO) 4.9 X 10^3 (1.8-7.8); NEUTROPHILS % (AUTO) 51 % (42-75); PLATELET COUNT 306 10^3/uL (130-400); RED CELL DISTRIBUTION WIDTH 13.3 % (10.0-14.5); WHITE BLOOD COUNT 9.6 10^3/uL (4.3-11.0)
--- NOTE | 2019-05-17 15:15 | Diagnostic Imaging Report ---
INDICATION: Increasing weakness. Semi-upright portable AP view of the chest is obtained with comparison made to study of 11/10/2018. FINDINGS: Heart size and pulmonary vascularity are within normal limits, and the lungs are clear, bilaterally. IMPRESSION: Unremarkable chest. Dictated by: Dictated on workstation # [id number]
[2019-05-17 15:21] LABS: BILIRUBIN,URINE NEGATIVE (NEGATIVE); CLARITY,URINE CLEAR; COLOR,URINE YELLOW; GLUCOSE, URINE (UA) 2+ (NEGATIVE); KETONES,URINE NEGATIVE (NEGATIVE); LEUKOCYTE ESTERASE ,URINE NEGATIVE (NEGATIVE); NITRITE,URINE NEGATIVE (NEGATIVE); PH,URINE 7 (5-9); PROTEIN,URINE NEGATIVE (NEGATIVE); UROBILINOGEN,URINE NORMAL (NORMAL)
--- NOTE | 2019-05-17 15:24 | Diagnostic Imaging Report ---
CLINICAL INDICATION: Patient has increased weakness x2 weeks. Abnormal lab results yesterday. Patient with history of toxoplasmosis and right-sided shunt. EXAM: Axial CT scan of the brain performed without IV contrast. Auto Exposure Controls were utilized during the CT exam to meet ALARA standards for radiation dose reduction. COMPARISON: Head CT without contrast dated 10/21/2018. FINDINGS: There is interval development of minimal isodense fluid in the subdural regions bilaterally with right-sided measuring 3 mm and left side measuring 2 mm. There is no brain herniation or midline shift. There are stable diffuse confluent low-attenuation white matter changes throughout both cerebral hemispheres and suspected parenchymal resection changes involving the right temporal lobe. There is encephalomalacia in the right frontal lobe and right temporal lobe regions as well. There is stable position of the ventricular shunt entering the right posterior aspect of the head with tip crossing midline and tip overlying the midportion of left lateral ventricle. There is stable enlargement of the left lateral ventricle measuring 2.4 cm in transverse dimension. There is diffuse brain parenchymal volume loss which is stable. There are postop changes to the skull and multiple philomena hole craniotomies and right skull craniotomy changes. Paranasal sinuses and mastoid air cells show no other significant abnormality. IMPRESSION: 1: There is interval development of isodense bilateral subdural fluid collections which may represent subacute or subdural hematomas. There is no significant brain herniation or midline shift. 2: Otherwise, the remainder of the brain parenchyma and postop changes are stable. 3: Stable ventricular shunt with stable ventricle sizes. Stable prominence of the left lateral ventricle. 4: Stable appearance of the chronic brain parenchymal changes from postop and encephalomalacia and/or gliotic changes. Results of this report were discussed with Dr. Dave Lal via the telephone on 05/17/2019 at 1510 hrs. Dictated by: Dictated on workstation # [id number]
[2019-05-17 15:40] LABS: BACTERIA,URINE TRACE /HPF; RBC,URINE >100 /HPF
[2019-05-17 15:41] LABS: SQUAMOUS EPITHELIAL CELL,UR 0-2 /HPF
--- NOTE | 2019-05-17 15:47 | NUR ---
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
--- NOTE | 2019-05-17 16:53 | History & Physical-Surgical ---
VINNY ORTEGA,MED STUDENT 05/17/19 1653: History of Present Illness History of Present Illness Reason for visit/HPI Pt presented to ED today after fall with weakness and confusion. States he falls frequently but felt that he should come into the hospital to get evaluated today. Pt is resident at [facility] in [place], where he has a caregiver. 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 Currently, patient is experiencing R shoulder pain he associates with his most recent fall. Date of Admission May 17, 2019 at 16:02 Date Seen by a Provider: May 17, 2019 Time Seen by a Provider: 16:45 I consulted on this patient on 05/17/19 16:47 Attending Physician Caden Alamo DO Admitting Physician Jasmeet Sood MD Consult Allergies and Home Medications Allergies Coded Allergies: morphine (Unverified Adverse Reaction, Unknown, 07/01/18) Home Medications Albuterol Sulfate 1 Puff Puff, 2 PUFF IH Q4H PRN for SHORTNESS OF BREATH, (Reported) 1 PUFF = 90 MCG Albuterol Sulfate 2.5 Mg/3 Ml Vial.neb, 2.5 MG NEB QID, (Reported) 7 DAY THEARPY START DATE 10-17-18 END DATE 10-24-18 Amitriptyline HCl 25 Mg Tablet, 50 MG PO HS, (Reported) TAKES 2 (25MG) TABLETS Cetirizine HCl 10 Mg Tablet, 10 MG PO DAILY PRN for ALLERGIES, (Reported) Clonazepam 0.5 Mg Tablet, 0.5 MG PO DAILY, (Reported) Clonazepam 1 Mg Tablet, 1 MG PO HS, (Reported) Clonidine HCl 0.1 Mg Tablet, 0.1 MG PO BID, (Reported) Divalproex Sodium 500 Mg Tablet.dr, 1,500 MG PO BID, (Reported) TAKES 3 (500MG) TABLETS Docusate Sodium 100 Mg Capsule, 100 MG PO BID, (Reported) Fluticasone/Salmeterol 1 Each Blst.w.dev, 1 PUFF INH BID, (Reported) Furosemide 40 Mg Tablet, 40 MG PO DAILY, (Reported) Gabapentin 600 Mg Tablet, 600 MG PO TID, (Reported) Levetiracetam 500 Mg Tablet, 1,500 MG PO BID, (Reported) TAKES 3 (500MG) TABLETS Magnesium Hydroxide 400 Mg/5 Ml Oral.susp, 30 ML PO DAILY PRN for CONSTIPATION- 7TH LINE, (Reported) Memantine HCl 5 Mg Tablet, 5 MG PO DAILY, (Reported) Menthol 118 Ml Gel..ml., TP HS, (Reported) APPLY TO BILATERAL ANKLES Naproxen 500 Mg Tablet, 500 MG PO Q12H PRN for PAIN-MILD, (Reported) Omeprazole 20 Mg Capsule.dr, 20 MG PO DAILY, (Reported) Oxybutynin Chloride 5 Mg Tab.er.24, 5 MG PO DAILY, (Reported) Oxycodone HCl/Acetaminophen 1 Each Tablet, 1 TAB PO Q6H PRN for PAIN-MODERATE, (Reported) Potassium Chloride 20 Meq Tab.er.prt, 20 MEQ PO DAILY, (Reported) Spironolactone 25 Mg Tablet, 25 MG PO DAILY, (Reported) Patient Home Medication List Home Medication List Reviewed: Yes Past Quvubeu-Wgcpyc-Ipnizw Hx Patient Social History Alcohol Use: Denies Use Recreational Drug Use: Yes (marijuana daily ) Drug of Choice: POT Smoking Status: Current Everyday Smoker Type Used: Cigarettes Recent Foreign Travel: No Contact w/Someone Who Travel: No Recent Infectious Disease Expo: No Recent Hopitalizations: No Immunizations Up To Date Tetanus Booster (TDap): Unknown Date of Influenza Vaccine: Jun 26, 2018 Seasonal Allergies Seasonal Allergies: Yes Surgeries History of Surgeries: Yes Surgeries: Brain Shunt, Neurological (Several operations since 2000 ) Respiratory History of Respiratory Disorde: Yes Respiratory Disorders: Asthma, Pneumonia, COPD Cardiovascular History of Cardiac Disorders: Yes Cardiac Disorders: Hypertension Neurological History of Neurological Disord: Yes (VENTRICULOPERITONEAL SHUNT, history of toxoplasmosis) Neurological Disorders: Dementia, Headaches /Migraines, Seizure Disorder, Vertigo Reproductive System Hx Reproductive Disorders: No Genitourinary History of Genitourinary Disor: No Gastrointestinal History of Gastrointestinal Di: Yes Gastrointestinal Disorders: Gastroesophageal Reflux Musculoskeletal History of Musculoskeletal Dis: Yes (GEN MUSCLE WEAKNESS) Musculoskeletal Disorders: Arthritis Endocrine History of Endocrine Disorders: No HEENT History of HEENT Disorders: No Cancer History of Cancer: No Psychosocial History of Psychiatric Problem: Yes Behavioral Health Disorders: Anxiety, PTSD, Depression Integumentary History of Skin or Integumenta: No Blood Transfusions History of Blood Disorders: No Adverse Reaction to a Blood Tr: No Family Medical History Significant Family History: Cancer, Diabetes Review of Systems Constitutional: dizziness; No fever; weakness EENTM: blurred vision, other; No hearing loss, No ear pain, No eye pain, No epistaxis, No nose pain Respiratory: cough; No short of breath Cardiovascular: No chest pain, No edema Gastrointestinal: No abdominal pain, No constipation, No diarrhea, No dysphagia, No nausea, No vomiting Genitourinary: No frequency; incontinence (urge) Musculoskeletal: back pain, joint pain Skin: dryness; No lesions, No lumps, No pruritus, No rash Psychiatric/Neurological: Anxiety, Depressed, Headache denies heat/cold intolerance denies history of abnormal bleeding disorder Physical Exam Vital Signs Vital Signs - First Documented 05/17/19 14:00 Temp 36.7 Pulse 92 Resp 16 B/P (MAP) 98/86 (90) Pulse Ox 91 O2 Delivery Room Air Capillary Refill : Less Than 3 Seconds Height, Weight, BMI Height: 5'8.00" Weight: 182lbs. 12.8oz. 82.992098cy; 28.00 BMI Method:Estimated General Appearance: No Apparent Distress, WD/WN Eyes: Bilateral Eye Photophobia HEENT: No PERRL/EOMI; Moist Mucous Membranes; No Scleral Icterus (L), No Scleral Icterus (R) Neck: Supple, Tender Lateral (L side ); No Thyromegaly; Other (PICC line in place right IJ ) Respiratory: Chest Non Tender, Lungs Clear, Normal Breath Sounds, No Accessory Muscle Use Cardiovascular: Regular Rate, Rhythm, Normal Peripheral Pulses Gastrointestinal: Non Tender, Soft, Distended (thinks is his normal ); No Guarding Rectal: Deferred Extremity: No Calf Tenderness, Pedal Edema, Slow Capillary Refill Neurologic/Psychiatric: Alert, Abnormal social work job titles II-XII (CN III, V, VII, XI abnormal ), EOM Palsy (cannot follow finger ), Facial Droop, Motor Weakness (B/L LE ) Skin: Normal Color, Warm/Dry Data Review Labs Laboratory Tests 05/17/19 14:05: Sodium Level 137, Potassium Level 3.7, Chloride Level 84L, Carbon Dioxide Level 39H, Anion Gap 14, Blood Urea Nitrogen 39H, Creatinine 1.38H, Estimat Glomerular Filtration Rate 54, BUN/Creatinine Ratio 28, Glucose Level 169H, Glucometer 177H , Calcium Level 10.2H, Corrected Calcium 10.0, Magnesium Level 2.4, Total Bilirubin 0.4, Aspartate Amino Transf (AST/SGOT) 55H, Alanine Aminotransferase (ALT/SGPT) 44, Alkaline Phosphatase 84, C-Reactive Protein High Sensitivity 0.79H, Total Protein 8.6H, Albumin 4.3 05/17/19 14:42: White Blood Count 9.6, Red Blood Count 5.40, Hemoglobin 16.1, Hematocrit 47, Mean Corpuscular Volume 87, Mean Corpuscular Hemoglobin 30, Mean Corpuscular Hemoglobin Concent 34, Red Cell Distribution Width 13.3, Platelet Count 306, Mean Platelet Volume 10.0, Neutrophils (%) (Auto) 51, Lymphocytes (%) (Auto) 36, Monocytes (%) (Auto) 12, Eosinophils (%) (Auto) 1, Basophils (%) (Auto) 0, Neutrophils # (Auto) 4.9, Lymphocytes # (Auto) 3.5, Monocytes # (Auto) 1.1H, Eosinophils # (Auto) 0.1, Basophils # (Auto) 0.0 05/17/19 15:10: Urine Color YELLOW, Urine Clarity CLEAR, Urine pH 7, Urine Specific [place] 1.005L, Urine Protein NEGATIVE, Urine Glucose (UA) 2+H, Urine Ketones NEGATIVE, Urine Nitrite NEGATIVE, Urine Bilirubin NEGATIVE, Urine Urobilinogen NORMAL, Urine Leukocyte Esterase NEGATIVE, Urine RBC (Auto) 4+H, Urine RBC >100H, Urine WBC NONE, Urine Squamous Epithelial Cells 0-2, Urine Crystals NONE, Urine Bacteria TRACE, Urine Casts NONE, Urine Hyaline Casts 10-25H, Urine Mucus NEGATIVE, Urine Culture Indicated NO Radiology CT HEAD WO CLINICAL INDICATION: Patient has increased weakness x2 weeks. Abnormal lab results yesterday. Patient with history of toxoplasmosis and right-sided shunt. EXAM: Axial CT scan of the brain performed without IV contrast. Auto Exposure Controls were utilized during the CT exam to meet ALARA standards for radiation dose reduction. COMPARISON: Head CT without contrast dated 10/21/2018. FINDINGS: There is interval development of minimal isodense fluid in the subdural regions bilaterally with right-sided measuring 3 mm and left side measuring 2 mm. There is no brain herniation or midline shift. There are stable diffuse confluent low-attenuation white matter changes throughout both cerebral hemispheres and suspected parenchymal resection changes involving the right temporal lobe. There is encephalomalacia in the right frontal lobe and right temporal lobe regions as well. There is stable position of the ventricular shunt entering the right posterior aspect of the head with tip crossing midline and tip overlying the midportion of left lateral ventricle. There is stable enlargement of the left lateral ventricle measuring 2.4 cm in transverse dimension. There is diffuse brain parenchymal volume loss which is stable. There are postop changes to the skull and multiple philomena hole craniotomies and right skull craniotomy changes. Paranasal sinuses and mastoid air cells show no other significant abnormality. IMPRESSION: 1: There is interval development of isodense bilateral subdural fluid collections which may represent subacute or subdural hematomas. There is no significant brain herniation or midline shift. 2: Otherwise, the remainder of the brain parenchyma and postop changes are stable. 3: Stable ventricular shunt with stable ventricle sizes. Stable prominence of the left lateral ventricle. 4: Stable appearance of the chronic brain parenchymal changes from postop and encephalomalacia and/or gliotic changes Assessment/Plan Assessment/Plan Admission Diagonsis Traumatic fall Subacute subdural hemorrhage Admission Status: Observation Assessment/Plan S/p traumatic fall Subacute subdural hemorrhage Plan is to admit to ICU for observation. Continue IVF and perform q1h neurological tests. CT will be repeated at 4am tomorrow morning to assess any changes. CADEN ALAMO DO 05/17/192056: History of Present Illness History of Present Illness Reason for visit/HPI patient is a 54-year-old male who is brought to the emergency department for further evaluation. Patient fell approximately1-2 weeks ago striking his head. he reports no loss of consciousness. Patient has continued to have increased w eakness and report of some confusion from the caregivers per ER note. No caregiver present at this time. Patient states that he is feeling weaker and he is wheelchair bound. He states he falls out of his chair almost on a daily basis. Patient has complaint of some right shoulder pain otherwise no other complaints. He is alert and oriented 3. He feels that he is at his baseline in terms of neurological condition. Patient had a CT scan of his head that demonstrated bilateral subacute subdural hematomas. chest x-ray unremarkable. Allergies and Home Medications Allergies Coded Allergies: morphine (Unverified Adverse Reaction, Unknown, 07/01/18) Home Medications Albuterol Sulfate 1 Puff Puff, 2 PUFF IH Q4H PRN for SHORTNESS OF BREATH, (Reported) 1 PUFF = 90 MCG Albuterol Sulfate 2.5 Mg/3 Ml Vial.neb, 2.5 MG NEB QID, (Reported) 7 DAY THEARPY START DATE 10-17-18 END DATE 10-24-18 Amitriptyline HCl 25 Mg Tablet, 50 MG PO HS, (Reported) TAKES 2 (25MG) TABLETS Cetirizine HCl 10 Mg Tablet, 10 MG PO DAILY PRN for ALLERGIES, (Reported) Clonazepam 0.5 Mg Tablet, 0.5 MG PO DAILY, (Reported) Clonazepam 1 Mg Tablet, 1 MG PO HS, (Reported) Clonidine HCl 0.1 Mg Tablet, 0.1 MG PO BID, (Reported) Divalproex Sodium 500 Mg Tablet.dr, 1,500 MG PO BID, (Reported) TAKES 3 (500MG) TABLETS Docusate Sodium 100 Mg Capsule, 100 MG PO BID, (Reported) Fluticasone/Salmeterol 1 Each Blst.w.dev, 1 PUFF INH BID, (Reported) Furosemide 40 Mg Tablet, 40 MG PO DAILY, (Reported) Gabapentin 600 Mg Tablet, 600 MG PO TID, (Reported) Levetiracetam 500 Mg Tablet, 1,500 MG PO BID, (Reported) TAKES 3 (500MG) TABLETS Magnesium Hydroxide 400 Mg/5 Ml Oral.susp, 30 ML PO DAILY PRN for CONSTIPATION- 7TH LINE, (Reported) Memantine HCl 5 Mg Tablet, 5 MG PO DAILY, (Reported) Menthol 118 Ml Gel..ml., TP HS, (Reported) APPLY TO BILATERAL ANKLES Naproxen 500 Mg Tablet, 500 MG PO Q12H PRN for PAIN-MILD, (Reported) Omeprazole 20 Mg Capsule.dr, 20 MG PO DAILY, (Reported) Oxybutynin Chloride 5 Mg Tab.er.24, 5 MG PO DAILY, (Reported) Oxycodone HCl/Acetaminophen 1 Each Tablet, 1 TAB PO Q6H PRN for PAIN-MODERATE, (Reported) Potassium Chloride 20 Meq Tab.er.prt, 20 MEQ PO DAILY, (Reported) Spironolactone 25 Mg Tablet, 25 MG PO DAILY, (Reported) Patient Home Medication List Home Medication List Reviewed: Yes Past Mxjlito-Fjlmmc-Bdenco Hx Patient Social History Alcohol Use: Denies Use Recreational Drug Use: Yes (marijuana daily ) Type Used: Cigarettes Surgeries History of Surgeries: Yes Surgeries: Brain Shunt, Neurological (Several operations since 2000 ) Respiratory Respiratory Disorders: Asthma, Pneumonia, COPD Cardiovascular Cardiac Disorders: Hypertension Neurological Neurological Disorders: Dementia, Headaches /Migraines Gastrointestinal Gastrointestinal Disorders: Gastroesophageal Reflux Musculoskeletal Musculoskeletal Disorders: Arthritis HEENT History of HEENT Disorders: No Psychosocial Behavioral Health Disorders: Anxiety, PTSD, Depression Family Medical History Significant Family History: No Pertinent Family Hx Review of Systems Constitutional: weakness EENTM: no symptoms reported Respiratory: cough Cardiovascular: no symptoms reported Gastrointestinal: no symptoms reported Genitourinary: no symptoms reported Musculoskeletal: see HPI, back pain Skin: no symptoms reported Psychiatric/Neurological: Anxiety, Depressed, Headache Physical Exam General Appearance: No Apparent Distress, WD/WN HEENT: Normal ENT Inspection Neck: Supple, Other (IV line right IJ , nontender neck but unable to move in any direction feels to weak, no pain with motion.) Respiratory: Chest Non Tender, Normal Breath Sounds, No Accessory Muscle Use Cardiovascular: Regular Rate, Rhythm, Normal Peripheral Pulses Gastrointestinal: No Organomegaly, Non Tender, Soft; No Distended Rectal: Deferred Back: Normal Inspection Extremity: No Calf Tenderness, Pedal Edema Neurologic/Psychiatric: Alert, Oriented x3; No Facial Droop; Motor Weakness (B/L LE ) Skin: Normal Color, Warm/Dry Lymphatic: No Adenopathy Assessment/Plan Assessment/Plan Admission Diagonsis recent fall from wheel chair bilateral subacute subdural hematomas history of tbi history of ventricular shunt Admission Status: Observation Assessment/Plan recent fall from wheel chair bilateral subacute subdural hematomas history of tbi history of ventricular shunt patient admitted to icu for observation and hourly neurochecks if any change in neurostatus will repeat ct head at that time otherwise will repeat in am patient demonstrates understanding of plan Supervisory-Addendum Brief Verification & Attestation Participated in pt care: history, MDM, physical Personally performed: exam, history, MDM, supervision of care Care discussed with: Medical Student Procedures: n/a Results interpretation: Verified all documentation Verification and Attestation of Medical Student E/M Service A medical student performed and documented this service in my presence. I reviewed and verified all information documented by the medical student and made modifications to such information, when appropriate. I personally performed the physical exam and medical decision making. Caden Alamo, May 17, 2019,21:04 VINNY ORTEGAMED STUDENT May 17, 2019 16:53 CADEN ALAMO DO May 17, 2019 20:57
[2019-05-17] MEDS ORDERED: CATHETER FLUSH 10 ML SYR IV PRN (17:00)
[2019-05-17] MEDS: NS IV 1000 ML 1,000 ML IV SCH (18:14)
[2019-05-17] MEDS ORDERED: RT-ALBUTEROL/IPRATROPIUM 3 ML (DUONEB) VIAL INH PRN (19:45)
[2019-05-17] MEDS ORDERED: ACETAMINOPHEN 325 MG TABLET PO PRN (21:30)
[2019-05-17] MEDS: inSUlin ASPART (NovoLOG) 1 UNIT/0.01 ML (CHARGE PER UNIT) SC SCH (21:35)
[2019-05-17] MEDS ORDERED: RT-ALBUTEROL/IPRATROPIUM 3 ML (DUONEB) VIAL INH SCH (22:00)
[2019-05-18] VITALS (10 sets, daily range): BP systolic 100–148; BP diastolic 71–101
[2019-05-18 04:05] LABS: BASOPHILS % (AUTO) 0 % (0-10); EOSINOPHILS # (AUTO) 0.1 10^3/uL (0.0-0.3); EOSINOPHILS % (AUTO) 2 % (0-10); HEMATOCRIT 42 % (40-54); HEMOGLOBIN 14.5 G/DL (13.3-17.7); LYMPHOCYTES # (AUTO) 2.1 X 10^3 (1.0-4.0); LYMPHOCYTES % (AUTO) 36 % (12-44); MEAN CORPUSCULAR HEMOGLOBIN 30 PG (25-34); MEAN CORPUSCULAR HGB CONC 34 G/DL (32-36); MEAN CORPUSCULAR VOLUME 88 FL (80-99); MEAN PLATELET VOLUME 10.2 FL (7.4-10.4); MONOCYTES # (AUTO) 0.7 X 10^3 (0.0-1.0); MONOCYTES % (AUTO) 11 % (0-12); NEUTROPHILS # (AUTO) 2.9 X 10^3 (1.8-7.8); NEUTROPHILS % (AUTO) 50 % (42-75); PLATELET COUNT 220 10^3/uL (130-400); RED CELL DISTRIBUTION WIDTH 12.9 % (10.0-14.5); WHITE BLOOD COUNT 5.9 10^3/uL (4.3-11.0)
[2019-05-18 04:24] LABS: BUN/CREATININE RATIO 35; CALCIUM 9.2 MG/DL (8.5-10.1); CARBON DIOXIDE 35 MMOL/L (21-32); CHLORIDE 87 MMOL/L (98-107); CREATININE SERUM 1.08 MG/DL (0.60-1.30); GFR ESTIMATED > 60; GLUCOSE 187 MG/DL (70-105); MAGNESIUM 2.1 MG/DL (1.6-2.4); PHOSPHORUS 2.9 MG/DL (2.3-4.7); POTASSIUM 2.6 MMOL/L (3.6-5.0); SODIUM 137 MMOL/L (135-145)
[2019-05-18] MEDS ORDERED: POTASSIUM CL 10MEQ/50ML IVPB 50 ML IV SCH (05:45)
--- NOTE | 2019-05-18 05:47 | Pulmonary Consultation ---
History of Present Illness History of Present Illness Date of Consultation 05/18/19 05:41 Date of Admission Allergies and Home Medications Allergies Coded Allergies: morphine (Unverified Adverse Reaction, Unknown, 07/01/18) Home Medications Albuterol Sulfate 1 Puff Puff, 2 PUFF IH Q4H PRN for SHORTNESS OF BREATH, (Reported) 1 PUFF = 90 MCG Albuterol Sulfate 2.5 Mg/3 Ml Vial.neb, 2.5 MG NEB QID, (Reported) 7 DAY THEARPY START DATE 10-17-18 END DATE 10-24-18 Amitriptyline HCl 25 Mg Tablet, 50 MG PO HS, (Reported) TAKES 2 (25MG) TABLETS Cetirizine HCl 10 Mg Tablet, 10 MG PO DAILY PRN for ALLERGIES, (Reported) Clonazepam 0.5 Mg Tablet, 0.5 MG PO DAILY, (Reported) Clonazepam 1 Mg Tablet, 1 MG PO HS, (Reported) Clonidine HCl 0.1 Mg Tablet, 0.1 MG PO BID, (Reported) Divalproex Sodium 500 Mg Tablet.dr, 1,500 MG PO BID, (Reported) TAKES 3 (500MG) TABLETS Docusate Sodium 100 Mg Capsule, 100 MG PO BID, (Reported) Fluticasone/Salmeterol 1 Each Blst.w.dev, 1 PUFF INH BID, (Reported) Furosemide 40 Mg Tablet, 40 MG PO DAILY, (Reported) Gabapentin 600 Mg Tablet, 600 MG PO TID, (Reported) Levetiracetam 500 Mg Tablet, 1,500 MG PO BID, (Reported) TAKES 3 (500MG) TABLETS Magnesium Hydroxide 400 Mg/5 Ml Oral.susp, 30 ML PO DAILY PRN for CONSTIPATION- 7TH LINE, (Reported) Memantine HCl 5 Mg Tablet, 5 MG PO DAILY, (Reported) Menthol 118 Ml Gel..ml., TP HS, (Reported) APPLY TO BILATERAL ANKLES Naproxen 500 Mg Tablet, 500 MG PO Q12H PRN for PAIN-MILD, (Reported) Omeprazole 20 Mg Capsule.dr, 20 MG PO DAILY, (Reported) Oxybutynin Chloride 5 Mg Tab.er.24, 5 MG PO DAILY, (Reported) Oxycodone HCl/Acetaminophen 1 Each Tablet, 1 TAB PO Q6H PRN for PAIN-MODERATE, (Reported) Potassium Chloride 20 Meq Tab.er.prt, 20 MEQ PO DAILY, (Reported) Spironolactone 25 Mg Tablet, 25 MG PO DAILY, (Reported) Past Kmgymxr-Hsdvmw-Nffcku Hx Past Med/Social Hx: Reviewed Nursing Past Med/Soc Hx Patient Social History Alcohol Use: Denies Use Recreational Drug Use: Yes (marijuana daily ) Drug of Choice: POT Smoking Status: Current Everyday Smoker Type Used: Cigarettes Recent Foreign Travel: No Contact w/Someone Who Travel: No Recent Infectious Disease Expo: No Recent Hopitalizations: No Physical Abuse: No Sexual Abuse: No Immunizations Up To Date Tetanus Booster (TDap): Unknown Date of Pneumonia Vaccine: May 17, 2017 Date of Influenza Vaccine: Jun 26, 2018 Seasonal Allergies Seasonal Allergies: Yes Past Medical History Surgeries: Yes Brain Shunt, Neurological (Several operations since 2000 ) Respiratory: Yes Asthma, Pneumonia, COPD Currently Using CPAP: No Currently Using BIPAP: No Cardiac: Yes Hypertension Neurological: Yes (VENTRICULOPERITONEAL SHUNT, history of toxoplasmosis) Dementia, Headaches /Migraines Reproductive Disorders: No Genitourinary: No Gastrointestinal: Yes Gastroesophageal Reflux Musculoskeletal: Yes (GEN MUSCLE WEAKNESS) Arthritis Endocrine: No HEENT: No Cancer: No Psychosocial: Yes Anxiety, PTSD, Depression Integumentary: No Blood Disorders: No Adverse Reaction/Blood Tranf: No Family Medical History Reviewed Nursing Family Hx No Pertinent Family Hx Sepsis Event Evaluation Height, Weight, BMI Height: 5'8.00" Weight: 182lbs. 12.8oz. 82.083158yw; 26.50 BMI Method:Estimated Exam Exam Vital Signs Date Time Temp Pulse Resp B/P (MAP) Pulse Ox O2 Delivery O2 Flow Rate FiO2 05/18/19 04:00 76 8 107/82 (90) 94 Room Air 05/18/19 04:00 93 Room Air 05/18/19 03:00 80 10 121/101 (108) 94 Room Air 05/18/19 02:00 82 9 127/88 (101) 97 Room Air 05/18/19 01:09 79 05/18/19 01:00 80 25 120/97 (105) 97 Room Air 05/18/19 00:00 80 8 112/90 (97) 93 Room Air 05/18/19 00:00 92 Room Air 05/18/19 00:00 35.9 05/17/19 23:00 78 9 137/92 (107) 96 Room Air 05/17/19 22:00 76 10 125/84 (98) 95 Room Air 05/17/19 21:00 78 8 106/84 (91) 92 Room Air 05/17/19 20:00 93 Room Air 05/17/19 20:00 75 12 125/96 (106) 91 Room Air 05/17/19 19:35 80 94 21 05/17/19 19:34 94 Room Air 05/17/19 19:29 35.8 77 18 117/77 (90) 93 Room Air 05/17/19 19:00 8 117/85 (96) 92 Room Air 05/17/19 17:20 85 05/17/19 17:00 36.2 05/17/19 16:45 86 32 122/92 (102) 93 Room Air 05/17/19 16:40 36.7 86 16 112/97 (90) 98 Room Air 05/17/19 14:00 36.7 92 16 98/86 (90) 91 Room Air I & O 05/18/19 07:00 Intake Total 1250 ml Output Total 2 ml Balance 1248 ml Height & Weight Height: 5'8.00" Weight: 182lbs. 12.8oz. 82.193078tw; 26.50 BMI Method:Estimated General Appearance: No Apparent Distress, WD/WN HEENT: Normal ENT Inspection Neck: Supple, Other (IV line right IJ , nontender neck but unable to move in any direction feels to weak, no pain with motion.) Respiratory: Chest Non Tender, Normal Breath Sounds, No Accessory Muscle Use Cardiovascular: Regular Rate, Rhythm, Normal Peripheral Pulses Capillary Refill: Less Than 3 Seconds Extremity: No Calf Tenderness, Pedal Edema Neurologic/Psychiatric: Alert, Oriented x3; No Facial Droop; Motor Weakness (B/L LE ) Skin: Normal Color, Warm/Dry Lymphatic: No Adenopathy Results Lab Laboratory Tests 05/17/19 14:05 05/17/19 14:42 05/18/19 03:30 05/18/19 03:35 Assessment/Plan Assessment/Plan Bilateral subacute subdural hematoma s/p recent fall from wheel chair -Monitor -Await repeat head CT results -Neuro checks -Surgery following Hx of TBI with current ventricular shunt Hypokalemia -Replace To 4th floor if repeat head CT shows no change and when ok with surgery. PHIL BONILLA DO May 18, 2019 05:46
[2019-05-18] MEDS ORDERED: POTASSIUM CL 10MEQ/50ML IVPB 250 ML IV ONE (05:49)
--- NOTE | 2019-05-18 06:06 | Diagnostic Imaging Report ---
PROCEDURE: CT head without contrast. TECHNIQUE: Multiple contiguous axial images were obtained through the brain without the use of intravenous contrast. Auto Exposure Controls were utilized during the CT exam to meet ALARA standards for radiation dose reduction. INDICATION: Subdural hematoma after fall Comparison is made to the study of 05/17/2019. Ventricles and sulci are similar when compared to previous study. There is right parietal philomena hole with ventriculoperitoneal shunt tube crossing the midline into the left lateral ventricle. There is continued asymmetric enlargement of the left lateral ventricle which reaches approximately 2.5 cm in maximal width. Encephalomalacia in the right temporal lobe is stable. Shallow isodense subdural hematomas are seen bilaterally without significant change. IMPRESSION: Stable ventriculomegaly, most pronounced in the left lateral ventricle. Shallow bilateral subdural hematomas have not significantly changed and demonstrate no significant mass effect. Dictated by: Dictated on workstation # [id number]
[2019-05-18] MEDS: inSUlin ASPART (NovoLOG) 1 UNIT/0.01 ML (CHARGE PER UNIT) SC SCH (06:36)
[2019-05-18] MEDS: NS IV 1000 ML 1,000 ML IV SCH ×2 (07:00→08:51)
[2019-05-18] MEDS ORDERED: RT-ALBUTEROL/IPRATROPIUM 3 ML (DUONEB) VIAL INH SCH (07:00)
--- NOTE | 2019-05-18 07:26 | Progress Note - Surgery ---
[facility] 05/18/19 0726: Subjective Date Seen by a Provider: May 18, 2019 Time Seen by a Provider: 06:55 Subjective/Events-last exam No neurological changes from previous exam. Patient is able to answer questions. patient has b/l leg weakness. Head CT shows that b/l subdural hematomas have not significantly changed and demonstrate no significant mass effect. Objective Exam Vital Signs Date Time Temp Pulse Resp B/P (MAP) Pulse Ox O2 Delivery O2 Flow Rate FiO2 05/18/19 04:00 76 8 107/82 (90) 94 Room Air 05/18/19 04:00 93 Room Air 05/18/19 03:00 80 10 121/101 (108) 94 Room Air 05/18/19 02:00 82 9 127/88 (101) 97 Room Air 05/18/19 01:09 79 05/18/19 01:00 80 25 120/97 (105) 97 Room Air 05/18/19 00:00 80 8 112/90 (97) 93 Room Air 05/18/19 00:00 92 Room Air 05/18/19 00:00 35.9 05/17/19 23:00 78 9 137/92 (107) 96 Room Air 05/17/19 22:00 76 10 125/84 (98) 95 Room Air 05/17/19 21:00 78 8 106/84 (91) 92 Room Air 05/17/19 20:00 93 Room Air 05/17/19 20:00 75 12 125/96 (106) 91 Room Air 05/17/19 19:35 80 94 21 05/17/19 19:34 94 Room Air 05/17/19 19:29 35.8 77 18 117/77 (90) 93 Room Air 05/17/19 19:00 8 117/85 (96) 92 Room Air 05/17/19 17:20 85 05/17/19 17:00 36.2 05/17/19 16:45 86 32 122/92 (102) 93 Room Air 05/17/19 16:40 36.7 86 16 112/97 (90) 98 Room Air 05/17/19 14:00 36.7 92 16 98/86 (90) 91 Room Air I & O 05/18/19 07:00 Intake Total 1300 ml Output Total 2 ml Balance 1298 ml Capillary Refill : Less Than 3 Seconds General Appearance: No Apparent Distress, WD/WN HEENT: Normal ENT Inspection Neck: Supple, Other (IV line right IJ , nontender neck but unable to move in any direction feels to weak, no pain with motion.) Respiratory: Chest Non Tender, Normal Breath Sounds, No Accessory Muscle Use Cardiovascular: Regular Rate, Rhythm, Normal Peripheral Pulses Extremity: No Calf Tenderness, Pedal Edema Neurologic/Psychiatric: Alert, Oriented x3; No Facial Droop; Motor Weakness (B/L LE ) Skin: Normal Color, Warm/Dry Lymphatic: No Adenopathy Results Lab Laboratory Tests 05/17/19 14:05: Sodium Level 137, Potassium Level 3.7, Chloride Level 84L, Carbon Dioxide Level 39H, Anion Gap 14, Blood Urea Nitrogen 39H, Creatinine 1.38H, Estimat Glomerular Filtration Rate 54, BUN/Creatinine Ratio 28, Glucose Level 169H, Glucometer 177H , Calcium Level 10.2H, Corrected Calcium 10.0, Magnesium Level 2.4, Total Bilirubin 0.4, Aspartate Amino Transf (AST/SGOT) 55H, Alanine Aminotransferase (ALT/SGPT) 44, Alkaline Phosphatase 84, C-Reactive Protein High Sensitivity 0.79H, Total Protein 8.6H, Albumin 4.3 05/17/19 14:42: White Blood Count 9.6, Red Blood Count 5.40, Hemoglobin 16.1, Hematocrit 47, Mean Corpuscular Volume 87, Mean Corpuscular Hemoglobin 30, Mean Corpuscular Hemoglobin Concent 34, Red Cell Distribution Width 13.3, Platelet Count 306, Mean Platelet Volume 10.0, Neutrophils (%) (Auto) 51, Lymphocytes (%) (Auto) 36, Monocytes (%) (Auto) 12, Eosinophils (%) (Auto) 1, Basophils (%) (Auto) 0, Neutrophils # (Auto) 4.9, Lymphocytes # (Auto) 3.5, Monocytes # (Auto) 1.1H, Eosinophils # (Auto) 0.1, Basophils # (Auto) 0.0 05/17/19 15:10: Urine Color YELLOW, Urine Clarity CLEAR, Urine pH 7, Urine Specific [place] 1.005L, Urine Protein NEGATIVE, Urine Glucose (UA) 2+H, Urine Ketones NEGATIVE, Urine Nitrite NEGATIVE, Urine Bilirubin NEGATIVE, Urine Urobilinogen NORMAL, Urine Leukocyte Esterase NEGATIVE, Urine RBC (Auto) 4+H, Urine RBC >100H, Urine WBC NONE, Urine Squamous Epithelial Cells 0-2, Urine Crystals NONE, Urine Bacteria TRACE, Urine Casts NONE, Urine Hyaline Casts 10-25H, Urine Mucus NEGATIVE, Urine Culture Indicated NO 05/17/19 21:33: Glucometer 142H 05/18/19 03:30: Sodium Level 137, Potassium Level 2.6L, Chloride Level 87L, Carbon Dioxide Level 35H, Anion Gap 15H, Blood Urea Nitrogen 38H, Creatinine 1.08, Estimat Glomerular Filtration Rate > 60, BUN/Creatinine Ratio 35, Glucose Level 187H, Calcium Level 9.2, Phosphorus Level 2.9, Magnesium Level 2.1 05/18/19 03:35: White Blood Count 5.9, Red Blood Count 4.80, Hemoglobin 14.5, Hematocrit 42, Mean Corpuscular Volume 88, Mean Corpuscular Hemoglobin 30, Mean Corpuscular Hemoglobin Concent 34, Red Cell Distribution Width 12.9, Platelet Count 220, Mean Platelet Volume 10.2, Neutrophils (%) (Auto) 50, Lymphocytes (%) (Auto) 36, Monocytes (%) (Auto) 11, Eosinophils (%) (Auto) 2, Basophils (%) (Auto) 0, Neutrophils # (Auto) 2.9, Lymphocytes # (Auto) 2.1, Monocytes # (Auto) 0.7, Eosinophils # (Auto) 0.1, Basophils # (Auto) 0.0 Assessment/Plan Assessment/Plan Assessment/Plan recent fall from wheel chair bilateral subacute subdural hematomas - no significant changes or mass effect per latest head CT history of tbi history of ventricular shunt Hyperglycemia patient admitted to icu for observation and hourly neurochecks - no changes if any change in neurostatus will repeat ct head at that time consult dc later if there continues to be no acute changes Clinical Quality Measures DVT/VTE Risk/Contraindication: Risk Factor Score Per Nursin RFS Level Per Nursing on Admit: 4+=Very High CADEN ALAMO DO 05/18/19 1528: Subjective Subjective/Events-last exam Patient doing well. Tired of being woke up a lot. No change in neurological status. Had repeat ct head this morning with no change. Wanting to go home. Denies n/v fever sweats chills shortness of breath or chest pain. Objective Exam General Appearance: No Apparent Distress, WD/WN HEENT: Normal ENT Inspection Neck: Supple, Other (IV line right IJ , nontender neck but unable to move in any direction feels to weak, no pain with motion still) Respiratory: Chest Non Tender, Normal Breath Sounds, No Accessory Muscle Use Cardiovascular: Regular Rate, Rhythm Gastrointestinal: non tender, soft, no organomegaly; No tenderness Extremity: No Calf Tenderness, No Pedal Edema Neurologic/Psychiatric: Alert, Oriented x3, Motor Weakness (B/L LE ) Skin: Normal Color, Warm/Dry Lymphatic: No Adenopathy Assessment/Plan Assessment/Plan Assessment/Plan recent fall from wheel chair bilateral subacute subdural hematomas - no significant change history of tbi history of ventricular shunt Hyperglycemia patient no change on ct scan and neurologically. okay with medicine and critical care to dc back to [facility] will have follow up arranged with his PCP. He can follow up with me on PRN basis. Any change in condition should be reevaluated at that time. Final Diagnosis recent fall from wheel chair bilateral subacute subdural hematomas - no significant changes or mass effect per latest head CT history of tbi history of ventricular shunt Hyperglycemia Supervisory-Addendum Brief Verification & Attestation Participated in pt care: history, MDM, physical Personally performed: exam, history, MDM, supervision of care Care discussed with: Medical Student Procedures: n/a Results interpretation: Verified all documentation Verification and Attestation of Medical Student E/M Service A medical student performed and documented this service in my presence. I reviewed and verified all information documented by the medical student and made modifications to such information, when appropriate. I personally performed the physical exam and medical decision making. Caden Alamo, May 18, 2019,15:28 [facility] May 18, 2019 07:26 CADEN ALAMO DO May 18, 2019 15:28
--- NOTE | 2019-05-18 07:51 | Diagnostic Imaging Report ---
INDICATION: Dyspnea Upright portable AP view of the chest is obtained with comparison made to the study of 05/17/2019. FINDINGS: Heart size and pulmonary vascularity are within normal limits, and the lungs are clear, bilaterally. IMPRESSION: Unremarkable chest. Dictated by: Dictated on workstation # [id number]
[2019-05-18] MEDS: POTASSIUM CL 10MEQ/50ML IVPB 50 ML IV SCH (08:47)
[2019-05-18] MEDS ORDERED: METO10TA7 PO (09:41)
[2019-05-18] MEDS ORDERED: DIME92CR TP (09:41)
[2019-05-18] MEDS ORDERED: LEVE750T5 PO (09:41)
[2019-05-18] MEDS ORDERED: SENN-36 PO (09:41)
[2019-05-18] MEDS ORDERED: PROP1.5D OU (09:41)
[2019-05-18] MEDS ORDERED: BISA10SU8 RC (09:41)
[2019-05-18] MEDS ORDERED: FLUT1BLS INH (09:41)
[2019-05-18] MEDS ORDERED: MEMA10TA22 PO (09:41)
[2019-05-18] MEDS ORDERED: BUME2TAB7 PO (09:41)
[2019-05-18] MEDS ORDERED: LACT10SO64 PO (09:41)
--- NOTE | 2019-05-18 09:45 | NUR ---
UPDATED MED REC WITH MEDICATION REVIEW REPORT FROM [facility] [place].
--- NOTE | 2019-05-18 09:50 | Consultation - Hospitalist ---
HPI History of Present Illness: HPI/Chief Complaint Chief Complaint: Medical management following fall with subdural hematoma. HPI: This is a 54[facility]WM [facility] who resides in a long term who presents several days after a fall found to have B/L subdural hematomas that were not a surgical condition, found to have dehydration with elevated creatin ine so Pt was placed in supportive care, monitored closely, neuro checks per protocol and Pt has been deemed stable for discharge from trauma service and will ensue and get him back to the long term, very poor prognosis. Source: patient Exam Limitations: no limitations Date Seen 05/18/19 Attending Physician Jai Alamo DO PCP Jasmeet Sood MD Referring Physician Date of Admission May 17, 2019 at 16:02 Home Medications & Allergies Home Medications Reviewed patient Home Medication Reconciliation performed by pharmacy medication reconciliations certified phlebotomy technician and/or nursing. Patients Allergies have been reviewed. Allergies Allergies Coded Allergies morphine (Unverified Adverse Reaction, Unknown, 07/01/18) Past Tjyyjcl-Nxjhkw-Edfqim Hx Past Med/Social Hx: Reviewed Nursing Past Med/Soc Hx, Reviewed and Corrections made Patient Social History Marrital Status: single Employed/Student: unemployed Alcohol Use: Denies Use Recreational Drug Use: Yes (marijuana daily ) Drug of Choice: POT Smoking Status: Current Everyday Smoker Type Used: Cigarettes Recent Foreign Travel: No Contact w/other who traveled: No Recent Hopitalizations: No Recent Infectious Disease Expo: No Immunizations Up To Date Tetanus Booster (TDap): Unknown Date of Pneumonia Vaccine: May 17, 2017 Date of Influenza Vaccine: Jun 26, 2018 Seasonal Allergies Seasonal Allergies: Yes Past Medical History Surgeries: Brain Shunt, Neurological (Several operations since 2000 ) Respiratory: Pneumonia Currently Using CPAP: No Currently Using BIPAP: No Cardiac: Hypertension Neurological: Dementia, Headaches /Migraines Reproductive: No Gastrointestinal: Gastroesophageal Reflux Musculoskeletal: Arthritis Psychosocial: Anxiety, PTSD, Depression History of Blood Disorders: No Adverse Reaction to Blood [place]: No Family History Reviewed Nursing Family Hx No Pertinent Family Hx Review of Systems Constitutional: see HPI Physical Exam Physical Exam Vital Signs Vital Signs - First Documented 05/17/19 05/17/19 14:00 19:35 Temp 36.7 Pulse 92 Resp 16 B/P (MAP) 98/86 (90) Pulse Ox 91 O2 Delivery Room Air FiO2 21 Capillary Refill : Less Than 3 Seconds Height, Weight, BMI Height: 5'8.00" Weight: 182lbs. 12.8oz. 82.145093mp; 26.50 BMI Method:Estimated General Appearance: No Apparent Distress, WD/WN, Chronically ill Eyes: Bilateral Eye Photophobia HEENT: Normal ENT Inspection Neck: Supple, Other (IV line right IJ , nontender neck but unable to move in any direction feels to weak, no pain with motion.) Respiratory: Chest Non Tender, Normal Breath Sounds, No Accessory Muscle Use Cardiovascular: Regular Rate, Rhythm, Normal Peripheral Pulses Gastrointestinal: No Organomegaly, Non Tender, Soft; No Distended Rectal: Deferred Back: Normal Inspection Extremity: No Calf Tenderness, Pedal Edema Neurologic/Psychiatric: Alert, Oriented x3; No Facial Droop; Motor Weakness (B/L LE ) Skin: Normal Color, Warm/Dry Lymphatic: No Adenopathy Results Results/Procedures Labs Laboratory Tests 05/17/19 14:05 05/17/19 14:42 05/18/19 03:30 05/18/19 03:35 Patient resulted labs reviewed. Assessment/Plan Assessment and Plan Assess & Plan/Chief Complaint Assessment: Subdural hematomas subacute Debility long term patient Plan: DC home Monitor BP Diagnosis/Problems Diagnosis/Problems (1) Subacute subdural hematoma Status: Acute Clinical Quality Measures DVT/VTE Risk/Contraindication: Risk Factor Score Per Nursin RFS Level Per Nursing on Admit: 4+=Very High MEÑO KONG DO May 18, 2019 09:50
--- NOTE | 2019-05-18 12:10 | NUR ---
[facility] staff arrived at this time to transport pt to senior living. Personal belongings with pt at this time. Education provided to [facility] staff on arrival regarding discharge. Previous Report called to senior living prior to transportation arrival. IVs removed prior to discharge.
== END 2019-05-18 10:54 ==
LOC: EDUNIT# 13:56 → ER 13:57 → UNDOADMOB 16:02 → ICU 16:02 → UNDODISOB 05-18 12:10
PROVIDERS: ADMIT Surgery; ATTEND Surgery
DX: S06.5X9A Traumatic subdural hemorrhage with loss of consciousness of unspecified duration, initial encounter (principal); E86.0 Dehydration; R53.1 Weakness; J30.9 Allergic rhinitis, unspecified; J44.9 Chronic obstructive pulmonary disease, unspecified; I10 Essential (primary) hypertension; K21.9 Gastro-esophageal reflux disease without esophagitis; M19.90 Unspecified osteoarthritis, unspecified site; G43.909 Migraine, unspecified, not intractable, without status migrainosus; F03.90 Unspecified dementia, unspecified severity, without behavioral disturbance, psychotic disturbance, mood disturbance, and anxiety; F41.8 Other specified anxiety disorders; F17.210 Nicotine dependence, cigarettes, uncomplicated; F43.10 Post-traumatic stress disorder, unspecified; F12.90 Cannabis use, unspecified, uncomplicated; Z79.899 Other long term (current) drug therapy; Z88.5 Allergy status to narcotic agent
CPT/HCPCS: 36415; 51702; 70450; 71045; 80048; 80053; 81000; 82962; 83735; 84100; 85025; 86141; 87081; 94640; 96360; 96361; G0378

== ENCOUNTER 2019-05-22 22:40 | Emergency (ER) | payer MEDICAID ==
[~2019-05-22] VITALS: Ht 180 cm; Wt 81.6 kg
[~2019-05-22 22:40] MED LIST changes: +BISA10SU8 RC; +BUME2TAB7 PO; +DIME92CR TP; +FLUT1BLS INH; +LACT10SO64 PO; +LEVE750T5 PO; +MEMA10TA22 PO; +METO10TA7 PO; +PROP1.5D OU; +SENN-36 PO
[2019-05-22] MEDS ORDERED: LACTATED RINGERS 1,000 ML IV ONE (23:16)
[2019-05-22 23:28] LABS: BASOPHILS % (AUTO) 0 % (0-10); EOSINOPHILS % (AUTO) 0 % (0-10); HEMATOCRIT 43 % (40-54); HEMOGLOBIN 14.9 G/DL (13.3-17.7); LYMPHOCYTES % (AUTO) 29 % (12-44); MEAN CORPUSCULAR HEMOGLOBIN 30 PG (25-34); MEAN CORPUSCULAR HGB CONC 35 G/DL (32-36); MEAN CORPUSCULAR VOLUME 87 FL (80-99); MEAN PLATELET VOLUME 9.9 FL (7.4-10.4); MONOCYTES # (AUTO) 1.8 X 10^3 (0.0-1.0); MONOCYTES % (AUTO) 17 % (0-12); NEUTROPHILS # (AUTO) 5.5 X 10^3 (1.8-7.8); NEUTROPHILS % (AUTO) 53 % (42-75); PLATELET COUNT 212 10^3/uL (130-400); RED CELL DISTRIBUTION WIDTH 13.6 % (10.0-14.5); WHITE BLOOD COUNT 10.3 10^3/uL (4.3-11.0)
[2019-05-22 23:31] LABS: ABG BASE EXCESS 10.5 MMOL/L (-2.5-2.5); ABG OXYGEN SATURATION 97 % (94-100); ABG PCO2 49 MMHG (35-45); ABG PH 7.47 (7.37-7.43); ABG PO2 82 MMHG (79-93); ABG TCO2 36.4 MMOL/L (21.0-31.0)
[2019-05-22 23:32] LABS: ALLENS TEST POSITIVE; PATIENT TEMP 36.7; VENTILATOR NO
[2019-05-22 23:33] LABS: INSPIRED O2 2L
[2019-05-22 23:50] LABS: ALBUMIN 3.9 GM/DL (3.2-4.5); BILIRUBIN,TOTAL 0.5 MG/DL (0.1-1.0); CALCIUM 9.2 MG/DL (8.5-10.1); CREATININE SERUM 1.25 MG/DL (0.60-1.30); MAGNESIUM 1.9 MG/DL (1.6-2.4); POTASSIUM 3.3 MMOL/L (3.6-5.0); TOTAL PROTEIN 8.1 GM/DL (6.4-8.2)
[2019-05-22 23:59] LABS: VALPROIC ACID 105.3 UG/ML (50.0-100.0)
[2019-05-23 00:20] LABS: BILIRUBIN,URINE NEGATIVE (NEGATIVE); CLARITY,URINE CLEAR; COLOR,URINE YELLOW; GLUCOSE, URINE (UA) NEGATIVE (NEGATIVE); KETONES,URINE NEGATIVE (NEGATIVE); LEUKOCYTE ESTERASE ,URINE NEGATIVE (NEGATIVE); NITRITE,URINE NEGATIVE (NEGATIVE); PH,URINE 5 (5-9); PROTEIN,URINE 1+ (NEGATIVE); UROBILINOGEN,URINE 1 MG/DL (NORMAL)
[2019-05-23 00:40] LABS: BACTERIA,URINE FEW /HPF; SQUAMOUS EPITHELIAL CELL,UR 0-2 /HPF
[2019-05-23] MEDS ORDERED: KCL 10 MEQ TAB (MICRO K) PO ONE (02:00)
--- NOTE | 2019-05-23 02:21 | ED Neurological Problem ---
General Chief Complaint: Unresponsive Stated Complaint: UNRESPONSIVE Nursing Triage Note: PT PRESENTS TO THE ED D/T BEING FOUND IN HIS BED AT THE CUSTODIAL ONLY RESPONSIVE TO PAINFUL STIMULUS. EMS STAFF STATE PT CURSED AT THEM UPON IV ATTEMPT AND REFUSED IV INSERTION. PT RESPONDS TO NAME UPON ARRIVAL, SPEECH IS NOT CLEAR. UNKNOWN LAST WELL TIME PER EMS STAFF. Nursing Sepsis Screen: No Definite Risk Source: patient, EMS, snf records, old records Exam Limitations: no limitations History of Present Illness Date Seen by Provider: May 22, 2019 Time Seen by Provider: 22:41 Initial Comments This 54-year-old man presents to the emergency room via EMS after being found "unresponsive" in his bed at [facility]. Patient had a recent admission for similar presentation. On that admission he was found to have bilateral subacute subdural hematomas thought to be related to a fall a week prior. Patient was dismissed back to the snf after that admission. Today patient is responsive to painful stimuli and sometimes to voice. He does attempt to speak but speech is mumbling and not well understood. He was alert enough to swear at the EMS staff during an IV attempt. Symptoms seem to be in global. There seemed to be no specific focal deficits. Patient has a complicated intracranial history and has a ventricular shunt and history of TBI. Allergies and Home Medications Allergies Coded Allergies: morphine (Unverified Adverse Reaction, Unknown, 07/01/18) Home Medications Albuterol Sulfate 1 Puff Puff, 2 PUFF IH Q4H PRN for SHORTNESS OF BREATH, (Reported) 1 PUFF = 90 MCG Amitriptyline HCl 25 Mg Tablet, 50 MG PO HS, (Reported) TAKES 2 (25MG) TABLETS Bisacodyl 10 Mg Supp.rect, 10 MG RC DAILY PRN for CONSTIPATION-4TH LINE, (Reported) Bumetanide 2 Mg Tablet, 2 MG PO DAILY, (Reported) Cetirizine HCl 10 Mg Tablet, 10 MG PO DAILY PRN for ALLERGIES, (Reported) Clonazepam 0.5 Mg Tablet, 0.5 MG PO DAILY, (Reported) Clonazepam 1 Mg Tablet, 1 MG PO HS, (Reported) Dimethicone 92 Gm Cream..g., TP TID, (Reported) APPLY TO BUTTOCKS Divalproex Sodium 500 Mg Tablet.dr, 1,000 MG PO BID, (Reported) TAKES 2 (500MG) TABLETS Docusate Sodium 100 Mg Capsule, 100 MG PO BID, (Reported) Fluticasone/Vilanterol 1 Each Blst.w.dev, 1 PUFF INH DAILY, (Reported) Gabapentin 600 Mg Tablet, 600 MG PO TID, (Reported) Lactulose 10 Gm/15 Ml Solution, 15 ML PO BID, (Reported) Levetiracetam 750 Mg Tablet, 1,500 MG PO BID, (Reported) TAKES 2 (750MG) TABLETS Magnesium Hydroxide 400 Mg/5 Ml Oral.susp, 30 ML PO DAILY PRN for CONSTIPATION- 7TH LINE, (Reported) Memantine HCl 10 Mg Tablet, 10 MG PO BID, (Reported) Menthol 118 Ml Gel..ml., TP HS, (Reported) APPLY TO BILATERAL ANKLES Metolazone 10 Mg Tablet, 10 MG PO DAILY, (Reported) Naproxen 500 Mg Tablet, 500 MG PO Q12H PRN for PAIN-MILD, (Reported) Omeprazole 20 Mg Capsule.dr, 20 MG PO DAILY, (Reported) Oxybutynin Chloride 5 Mg Tab.er.24, 5 MG PO DAILY, (Reported) Oxycodone HCl/Acetaminophen 1 Each Tablet, 1 TAB PO Q6H PRN for PAIN-MODERATE, (Reported) Potassium Chloride 20 Meq Tab.er.prt, 40 MEQ PO DAILY, (Reported) TAKES 2 (20MEQ) TABLETS Propylene Glycol 1.5 Ml Drops, 1 DROP OU BID, (Reported) Sennosides 8.6 Mg Tablet, 8.6 MG PO DAILY, (Reported) Patient Home Medication List Home Medication List Reviewed: Yes Review of Systems Review of Systems Constitutional: see HPI Eyes: No Symptoms Reported Ears, Nose, Mouth, Throat: no symptoms reported Respiratory: no symptoms reported Cardiovascular: no symptoms reported Gastrointestinal: no symptoms reported Genitourinary: no symptoms reported Musculoskeletal: no symptoms reported Skin: no symptoms reported Psychiatric/Neurological: See HPI Endocrine: No Symptoms Reported Hematologic/Lymphatic: No Symptoms Reported Past Votxynl-Uuyudn-Fjznfq Hx Past Med/Social Hx: Reviewed Nursing Past Med/Soc Hx Patient Social History Alcohol Use: Denies Use Recreational Drug Use: Yes Drug of Choice: HX POT Smoking Status: Former Smoker Type Used: Cigarettes Recent Foreign Travel: No Contact w/Someone Who Travel: No Recent Infectious Disease Expo: No Recent Hopitalizations: No Immunizations Up To Date Tetanus Booster (TDap): Unknown PED Vaccines UTD: Yes Date of Pneumonia Vaccine: May 17, 2017 Date of Influenza Vaccine: Jun 26, 2018 Seasonal Allergies Seasonal Allergies: Yes Past Medical History Surgeries: Yes Brain Shunt, Neurological Respiratory: Yes Asthma, Pneumonia, COPD Currently Using CPAP: No Currently Using BIPAP: No Cardiac: Yes Hypertension Neurological: Yes (VENTRICULOPERITONEAL SHUNT, history of toxoplasmosis) Dementia, Headaches /Migraines Reproductive Disorders: No Genitourinary: No Gastrointestinal: Yes Gastroesophageal Reflux Musculoskeletal: Yes (GEN MUSCLE WEAKNESS) Arthritis Endocrine: No HEENT: No Cancer: No Psychosocial: Yes Anxiety, PTSD, Depression Integumentary: No Blood Disorders: No Adverse Reaction/Blood Tranf: No Family Medical History No Pertinent Family Hx Physical Exam Vital Signs Vital Signs - First Documented 05/22/19 22:40 Temp 36.7 Pulse 92 Resp 18 B/P (MAP) 108/88 (95) Pulse Ox 97 O2 Delivery Nasal Cannula Capillary Refill : Less Than 3 Seconds Height, Weight, BMI Height: 5'8.00" Weight: 182lbs. 12.8oz. 82.373459er; 25.00 BMI Method:Estimated General Appearance: WD/WN, no apparent distress HEENT: PERRL/EOMI, normal ENT inspection Neck: normal inspection Respiratory: lungs clear, normal breath sounds Cardiovascular: regular rate, rhythm, no edema, no murmur Gastrointestinal: normal bowel sounds, non tender, soft Back: normal inspection Extremities: normal inspection, no pedal edema Neurologic/Psychiatric: correctional sergeant II-XII nml as tested, other (patient is responsive to painful stimuli and sometimes to voice. He does try to speak but his mumbling and not always comprehensible) Crainal Nerves: normal hearing, PERRL Motor/Sensory: no motor deficit, no sensory deficit, no pronator drift, negat pilo Babinski's sign, positive Babinski's sign Skin: normal color, warm/dry Procedures/Interventions Suture Size: 4-0 Progress/Results/Core Measures Results/Orders Lab Results Laboratory Tests Test 05/22/19 23:08 05/22/19 23:24 05/23/19 00:08 Range/Units Blood Gas Puncture Site LEFT RADIAL Blood Gas Patient Temperature 36.7 Arterial Blood pH 7.47 H 7.37-7.43 Arterial Blood Partial Pressure CO2 49 H 35-45 MMHG Arterial Blood Partial Pressure O2 82 79-93 MMHG Arterial Blood HCO3 35 H 23-27 MMOL/L Arterial Blood Total CO2 36.4 H 21.0-31.0 MMOL/L Arterial Blood Oxygen Saturation 97 94-100 % Arterial Blood Base Excess 10.5 H -2.5-2.5 MMOL/L Martin Test POSITIVE Blood Gas Ventilator Setting NO Blood Gas Inspired Oxygen 2L White Blood Count 10.3 4.3-11.0 10^3/uL Red Blood Count 4.93 4.35-5.85 10^6/uL Hemoglobin 14.9 13.3-17.7 G/DL Hematocrit 43 40-54 % Mean Corpuscular Volume 87 80-99 FL Mean Corpuscular Hemoglobin 30 25-34 PG Mean Corpuscular Hemoglobin Concent 35 32-36 G/DL Red Cell Distribution Width 13.6 10.0-14.5 % Platelet Count 212 130-400 10^3/uL Mean Platelet Volume 9.9 7.4-10.4 FL Neutrophils (%) (Auto) 53 42-75 % Lymphocytes (%) (Auto) 29 12-44 % Monocytes (%) (Auto) 17 H 0-12 % Eosinophils (%) (Auto) 0 0-10 % Basophils (%) (Auto) 0 0-10 % Neutrophils # (Auto) 5.5 1.8-7.8 X 10^3 Lymphocytes # (Auto) 3.0 1.0-4.0 X 10^3 Monocytes # (Auto) 1.8 H 0.0-1.0 X 10^3 Eosinophils # (Auto) 0.0 0.0-0.3 10^3/uL Basophils # (Auto) 0.0 0.0-0.1 10^3/uL Sodium Level 136 135-145 MMOL/L Potassium Level 3.3 L 3.6-5.0 MMOL/L Chloride Level 92 L 98-107 MMOL/L Carbon Dioxide Level 30 21-32 MMOL/L Anion Gap 14 5-14 MMOL/L Blood Urea Nitrogen 25 H 7-18 MG/DL Creatinine 1.25 0.60-1.30 MG/DL Estimat Glomerular Filtration Rate 60 BUN/Creatinine Ratio 20 Glucose Level 177 H 70-105 MG/DL Calcium Level 9.2 8.5-10.1 MG/DL Corrected Calcium 9.3 8.5-10.1 MG/DL Magnesium Level 1.9 1.6-2.4 MG/DL Total Bilirubin 0.5 0.1-1.0 MG/DL Aspartate Amino Transf (AST/SGOT) 23 5-34 U/L Alanine Aminotransferase (ALT/SGPT) 33 0-55 U/L Alkaline Phosphatase 68 40-136 U/L Total Protein 8.1 6.4-8.2 GM/DL Albumin 3.9 3.2-4.5 GM/DL Valproic Acid (Depakene) Level 105.3 *H 50.0-100.0 UG/ML Urine Color YELLOW Urine Clarity CLEAR Urine pH 5 5-9 Urine Specific [place] 1.020 1.016-1.022 Urine Protein 1+ H NEGATIVE Urine Glucose (UA) NEGATIVE NEGATIVE Urine Ketones NEGATIVE NEGATIVE Urine Nitrite NEGATIVE NEGATIVE Urine Bilirubin NEGATIVE NEGATIVE Urine Urobilinogen 1 NORMAL MG/DL Urine Leukocyte Esterase NEGATIVE NEGATIVE Urine RBC (Auto) NEGATIVE NEGATIVE Urine RBC NONE /HPF Urine WBC NONE /HPF Urine Squamous Epithelial Cells 0-2 /HPF Urine Crystals NONE /LPF Urine Bacteria FEW H /HPF Urine Casts PRESENT /LPF Urine Hyaline Casts 10-25 H /LPF Urine Mucus SMALL H /LPF Urine Culture Indicated NO My Orders Orders - SAUD FARRELL MD Ed Iv/Invasive Line Start (05/22/19 22:54) Monitor-Rhythm Ecg Trace Only (05/22/19 22:54) Cbc With Automated Diff (05/22/19 22:54) Comprehensive Metabolic Panel (05/22/19 22:54) Magnesium (05/22/19 22:54) Ua Culture If Indicated (05/22/19 22:54) Chest 1 View, Ap/Pa Only (05/22/19 22:54) Valproic Acid (05/22/19 22:54) Arterial Blood Gas (05/22/19 23:03) Ed Iv/Invasive Line Start (05/22/19 23:16) Lactated Ringers (Lr 1000 Ml Iv Solution (05/22/19 23:16) Potassium Chloride (Tablet) (Klor Con Ta (05/23/19 02:00) Medications Given in ED Current Medications Medications Dose Ordered Sig/Davin Route Start Time Stop Time Status Last Admin Dose Admin Lactated Ringer's 1,000 ml @ 0 mls/hr Q0M ONCE IV 05/22/19 23:16 10/1/19 23:17 DC 05/22/19 23:44 1,000 MLS/HR Potassium Chloride 20 meq ONCE ONCE PO 05/23/19 02:00 05/23/19 02:01 DC 05/23/19 02:15 20 MEQ Vital Signs/I&O 05/22/19 22:40 Temp 36.7 Pulse 92 Resp 18 B/P (MAP) 108/88 (95) Pulse Ox 97 O2 Delivery Nasal Cannula Blood Pressure Mean: 95 Progress Progress Note : Progress Note Workup including CT of the head was grossly unremarkable. Patient was hydrated with IV fluids. Patient was observed for a prolonged period of time and symptoms gradually improved. Prior to discharge he was conversational, following commands, and oriented to person and age. Valproic acid level returned supratherapeutic. I suspect patient's lethargy is due to Depakote. Case was discussed with Dr. Erickson. We agree that it would be prudent to send the patient back to the snf and hold valproic acid therapy until further review. Another possibility is that patient had a seizure in bed that was unwitnessed and his altered mental status was due to post ictal state. Patient reports he has not had a seizure in many years. Diagnostic Imaging Diagonstic Imaging: CT Plain Films/CT/US/NM/MRI: head Comments CT head was viewed by me, compared with prior, and [facility] report reviewed. There were no acute changes from prior. There was motion artifact. Departure Impression Primary Impression: Altered mental status Qualified Codes: R41.82 - Altered mental status, unspecified Additional Impression: Valproic acid toxicity Qualified Codes: T42.6X1D - Poisoning by other antiepileptic and sedative- hypnotic drugs, accidental (unintentional), subsequent encounter Disposition: HOME, SELF-CARE Condition: Improved Departure-Patient Inst. Decision time for Depature: 02:00 Referrals: JULIANA WINSLOW MD (PCP) Primary Care Physician ESTEPHANIA IVAN (Family) Primary Care Physician Patient Instructions: Valproic Acid and Derivatives Add. Discharge Instructions: Do not resume valproic acid (Depakote) until dosing can be adjusted by your doctor. Follow-up with Dr. Winslow as soon as possible. Return to the emergency room if you have worsening symptoms. All discharge instructions reviewed with patient and/or family. Voiced understan ding. Copy Copies To 1: JULIANA WINSLOW MD, JOSHUA T MD May 23, 2019 02:21
[2019-05-23 03:00] VITALS: BP 122/91
--- NOTE | 2019-05-23 07:16 | Diagnostic Imaging Report ---
PROCEDURE: CT head wo r/o stroke. TECHNIQUE: Multiple contiguous axial images were obtained through the brain without the use of intravenous contrast. Auto Exposure Controls were utilized during the CT exam to meet ALARA standards for radiation dose reduction. INDICATION: Unresponsive Comparison is made to study of 05/18/2019. Similar to the previous study, there is ventriculoperitoneal shunt tube entering the right parietal philomena hole. There is unchanged dilatation of the left lateral ventricle. Extensive encephalomalacia is also seen in the right temporal lobe with diffuse low-density throughout the cerebral white matter of both hemispheres. There is mild hyperdensity in the subdural spaces along the cerebral convexities which is greater on the right. This could be due to nonacute hemorrhage or dural thickening. No new hemorrhage is identified. Overall, no adverse change is identified. IMPRESSION: 1. No significant change in placement of ventricular catheter and enlargement of the left lateral ventricle. 2. Underlying encephalomalacia and chronic white matter findings are stable. 3. There may be approximately 0.3 cm subdural hematomas bilaterally versus dural thickening. Dictated by: Dictated on workstation # [id number]
--- NOTE | 2019-05-23 07:48 | Diagnostic Imaging Report ---
INDICATION: Unresponsive Upright portable AP view of the chest is obtained. Comparison is made to study of 05/18/2019. FINDINGS: Heart size and pulmonary vascularity are within normal limits, and the lungs are clear, bilaterally. IMPRESSION: Unremarkable chest. Dictated by: Dictated on workstation # [id number]
== END 2019-05-23 02:28 | disposition home or self-care (01) ==
LOC: EDUNIT# 22:40 → ER 22:41
DX: T42.6X1A Poisoning by other antiepileptic and sedative-hypnotic drugs, accidental (unintentional), initial encounter (principal); I10 Essential (primary) hypertension; J44.9 Chronic obstructive pulmonary disease, unspecified; G43.909 Migraine, unspecified, not intractable, without status migrainosus; F03.90 Unspecified dementia, unspecified severity, without behavioral disturbance, psychotic disturbance, mood disturbance, and anxiety; F41.9 Anxiety disorder, unspecified; F43.10 Post-traumatic stress disorder, unspecified; K21.9 Gastro-esophageal reflux disease without esophagitis; Z88.5 Allergy status to narcotic agent; Z79.51 Long term (current) use of inhaled steroids; Z87.891 Personal history of nicotine dependence; Z98.2 Presence of cerebrospinal fluid drainage device
CPT/HCPCS: 36415; 51702; 70450; 71045; 80053; 80164; 81000; 82805; 83735; 85025; 93041

== ENCOUNTER → 2019-08-25 | Outpatient (CLI) | payer MEDICAID ==
[2019-08-25 19:20] LABS: BILIRUBIN,URINE NEGATIVE (NEGATIVE); CLARITY,URINE CLEAR; COLOR,URINE YELLOW; GLUCOSE, URINE (UA) NEGATIVE (NEGATIVE); KETONES,URINE NEGATIVE (NEGATIVE); LEUKOCYTE ESTERASE ,URINE NEGATIVE (NEGATIVE); NITRITE,URINE NEGATIVE (NEGATIVE); PROTEIN,URINE NEGATIVE (NEGATIVE)
[2019-08-25 20:26] LABS: BACTERIA,URINE TRACE /HPF; SQUAMOUS EPITHELIAL CELL,UR 0-2 /HPF
[2019-08-25 20:27] LABS: HYALINE CASTS, URINE 0-2 /LPF
== END ==
PROVIDERS: ATTEND Internal Medicine
DX: R41.0 Disorientation, unspecified (principal)
CPT/HCPCS: 81000

== ENCOUNTER 2020-03-20 14:18 | Emergency (ER) | payer MEDICAID ==
[~2020-03-20] VITALS: Ht 170 cm; Wt 68.0 kg
[~2020-03-20 14:18] MED LIST changes: -CLOB15CR2 TP; -NAPR-1071 PO
[2020-03-20] MEDS ORDERED: diphenhydrAMINE 50 MG/ML INJ (BENADRYL) IM STA (14:34)
--- NOTE | 2020-03-20 14:34 | ED Integumentary General ---
General Chief Complaint: Allergic Reaction Stated Complaint: RASH ON HANDS Source: patient Exam Limitations: no limitations History of Present Illness Date Seen by Provider: Mar 20, 2020 Time Seen by Provider: 14:31 Initial Comments 55-year-old male presents with rash is bilateral hands and arm. He's got some mild swelling to the right hand. He's got some raised areas that are mildly vesicular. He denies any new contacts, lotions, soaps been any plants or new clothing. He also has some mild swelling on his face. He denies any new foods. Without any wheezing and shortness of breath. Patient has not tried anything for it. Allergies and Home Medications Allergies Coded Allergies: morphine (Unverified Adverse Reaction, Unknown, 07/01/18) Home Medications Albuterol Sulfate 1 Puff Puff, 2 PUFF IH Q4H PRN for SHORTNESS OF BREATH, (Reported) 1 PUFF = 90 MCG Amitriptyline HCl 25 Mg Tablet, 50 MG PO HS, (Reported) TAKES 2 (25MG) TABLETS Bisacodyl 10 Mg Supp.rect, 10 MG RC DAILY PRN for CONSTIPATION-4TH LINE, (Reported) Bumetanide 2 Mg Tablet, 2 MG PO DAILY, (Reported) Cetirizine HCl 10 Mg Tablet, 10 MG PO DAILY PRN for ALLERGIES, (Reported) Clobetasol Propionate 15 Gm Cream..g., 15 GM TP BID Prescribed by: KARAN HO on 03/20/20 1443 Clonazepam 0.5 Mg Tablet, 0.5 MG PO DAILY, (Reported) Clonazepam 1 Mg Tablet, 1 MG PO HS, (Reported) Dimethicone 92 Gm Cream..g., TP TID, (Reported) APPLY TO BUTTOCKS Divalproex Sodium 500 Mg Tablet.dr, 1,000 MG PO BID, (Reported) TAKES 2 (500MG) TABLETS Docusate Sodium 100 Mg Capsule, 100 MG PO BID, (Reported) Fluticasone/Vilanterol 1 Each Blst.w.dev, 1 PUFF INH DAILY, (Reported) Gabapentin 600 Mg Tablet, 600 MG PO TID, (Reported) Lactulose 10 Gm/15 Ml Solution, 15 ML PO BID, (Reported) Levetiracetam 750 Mg Tablet, 1,500 MG PO BID, (Reported) TAKES 2 (750MG) TABLETS Magnesium Hydroxide 400 Mg/5 Ml Oral.susp, 30 ML PO DAILY PRN for CONSTIPATION- 7TH LINE, (Reported) Memantine HCl 10 Mg Tablet, 10 MG PO BID, (Reported) Menthol 118 Ml Gel..ml., TP HS, (Reported) APPLY TO BILATERAL ANKLES Metolazone 10 Mg Tablet, 10 MG PO DAILY, (Reported) Naproxen 500 Mg Tablet, 500 MG PO Q12H PRN for PAIN-MILD, (Reported) Naproxen 500 Mg Tablet, 500 MG PO BID Prescribed by: KARAN HO on 03/20/20 1443 Omeprazole 20 Mg Capsule.dr, 20 MG PO DAILY, (Reported) Oxybutynin Chloride 5 Mg Tab.er.24, 5 MG PO DAILY, (Reported) Oxycodone HCl/Acetaminophen 1 Each Tablet, 1 TAB PO Q6H PRN for PAIN-MODERATE, (Reported) Potassium Chloride 20 Meq Tab.er.prt, 40 MEQ PO DAILY, (Reported) TAKES 2 (20MEQ) TABLETS Propylene Glycol 1.5 Ml Drops, 1 DROP OU BID, (Reported) Sennosides 8.6 Mg Tablet, 8.6 MG PO DAILY, (Reported) Patient Home Medication List Home Medication List Reviewed: Yes Review of Systems Review of Systems Constitutional: No chills, No fever EENTM: No hoarseness, No mouth pain, No nose congestion, No throat pain, No throat swelling Respiratory: No cough, No short of breath, No wheezing Cardiovascular: No chest pain, No palpitations Gastrointestinal: No abdominal pain, No nausea, No vomiting Musculoskeletal: see HPI Skin: see HPI, rash Psychiatric/Neurological: No Symptoms Reported Endocrine: No Symptoms Reported Past [id number]-[id number] Hx Past Med/Social Hx: Reviewed Nursing Past Med/Soc Hx Patient Social History Drug of Choice: HX POT Type Used: Cigarettes Recent Hopitalizations: No Immunizations Up To Date Tetanus Booster (TDap): Unknown PED Vaccines UTD: Yes Date of Pneumonia Vaccine: May 17, 2017 Date of Influenza Vaccine: Jun 26, 2018 Seasonal Allergies Seasonal Allergies: Yes Past Medical History Surgeries: Yes Brain Shunt, Neurological Respiratory: Yes Asthma, Pneumonia, COPD Currently Using CPAP: No Currently Using BIPAP: No Cardiac: Yes Hypertension Neurological: Yes (VENTRICULOPERITONEAL SHUNT, history of toxoplasmosis) Dementia, Headaches /Migraines Reproductive Disorders: No Genitourinary: No Gastrointestinal: Yes Gastroesophageal Reflux Musculoskeletal: Yes (GEN MUSCLE WEAKNESS) Arthritis Endocrine: No HEENT: No Cancer: No Psychosocial: Yes Anxiety, PTSD, Depression Integumentary: No Blood Disorders: No Adverse Reaction/Blood Tranf: No Family Medical History No Pertinent Family Hx Physical Exam Vital Signs Vital Signs - First Documented 03/20/20 14:35 Temp 36.1 Pulse 105 Resp 20 B/P (MAP) 106/81 (89) Pulse Ox 96 O2 Delivery Room Air Capillary Refill : General Appearance: WD/WN, no apparent distress HEENT: PERRL/EOMI Neck: full range of motion, supple Cardiovascular: normal peripheral pulses, regular rate, rhythm Respiratory: lungs clear, normal breath sounds Gastrointestinal: non tender, soft Neurologic/Psychiatric: alert, normal mood/affect, oriented x 3 Skin: rash (rash consistent with a contact dermatitis/allergic reaction on his bilateral hands with some mild swelling under his right eye on his cheek consistent with allergic reaction) Skin Problem Character: rash Procedures/Interventions Suture Size: 4-0 Progress/Results/Core Measures Results/Orders My Orders Orders - KARAN HO DO Diphenhydramine Injection (Benadryl Inje (03/20/20 14:34) Dexamethasone Injection (Decadron Inject (03/20/20 14:45) Vital Signs/I&O 03/20/20 14:35 Temp 36.1 Pulse 105 Resp 20 B/P (MAP) 106/81 (89) Pulse Ox 96 O2 Delivery Room Air Departure Impression Primary Impression: Allergic reaction Qualified Codes: T78.40XA - Allergy, unspecified, initial encounter Additional Impression: Contact dermatitis and other eczema, due to unspecified cause Disposition: 01 HOME, SELF-CARE Condition: Stable Departure-Patient Inst. Referrals: JULIANA WINSLOW MD (PCP) Primary Care Physician ESTEPHANIA IVAN (Family) Primary Care Physician Patient Instructions: Contact Dermatitis (DC), Skin Rash (DC) Add. Discharge Instructions: Benadryl 50 mg every 6-8 hours as needed for itching and swelling All discharge instructions reviewed with patient and/or family. Voiced und erstanding. Scripts Naproxen (Naprosyn) 500 Mg Tablet 500 MG PO BID, #30 TAB 0 Refills Prov: KARAN HO DO 03/20/20 Clobetasol Propionate (Clobetasol Propionate) 15 Gm Cream..g. 15 GM TP BID for 14 Days, #1 TUBE 0 Refills Prov: KARAN HO DO 03/20/20 KARAN HO DO Mar 20, 2020 14:34
[2020-03-20] MEDS ORDERED: NAPR-1071 PO (14:43)
[2020-03-20] MEDS ORDERED: CLOB15CR2 TP (14:43)
[2020-03-20 15:20] VITALS: BP 106/83
== END 2020-03-20 15:23 | disposition home or self-care (01) ==
LOC: EDUNIT# 14:18 → ER 14:20
DX: L23.9 Allergic contact dermatitis, unspecified cause (principal); J44.9 Chronic obstructive pulmonary disease, unspecified; I10 Essential (primary) hypertension; F41.9 Anxiety disorder, unspecified; F32.9 Major depressive disorder, single episode, unspecified; F03.90 Unspecified dementia, unspecified severity, without behavioral disturbance, psychotic disturbance, mood disturbance, and anxiety; G43.909 Migraine, unspecified, not intractable, without status migrainosus; K21.9 Gastro-esophageal reflux disease without esophagitis; Z88.5 Allergy status to narcotic agent; Z79.51 Long term (current) use of inhaled steroids
CPT/HCPCS: 99283

== ENCOUNTER → 2020-03-20 | Outpatient (CLI) | payer MEDICAID ==
[~2020-03-20] MED LIST changes: -CETI10TA20 PO; +CETI10TA21 PO; +CLOB15CR2 TP; -CLON0.5T13 PO; +CLON0.5T4 PO; -MEMA10TA22 PO; +MEMA10TA57 PO; -MEMA5TAB16 PO; +MEMA5TAB43 PO; +NAPR-1071 PO; -OMEP20CA13 PO; +OMEP20CA18 PO; +OXYB-52 PO; -OXYB5TAB PO
[2020-03-20 16:47] LABS: HEMOGLOBIN 13.7 G/DL (13.3-17.7); MEAN PLATELET VOLUME 10.2 FL (7.4-10.4); RED CELL DISTRIBUTION WIDTH 14.7 % (10.0-14.5)
[2020-03-20 16:51] LABS: ALBUMIN 4.2 GM/DL (3.2-4.5); CHLORIDE 98 MMOL/L (98-107); POTASSIUM 3.4 MMOL/L (3.6-5.0); SODIUM 138 MMOL/L (135-145)
[2020-03-20 16:52] LABS: CALCIUM 9.7 MG/DL (8.5-10.1)
[2020-03-20 16:53] LABS: GLUCOSE 116 MG/DL (70-105); TOTAL PROTEIN 7.7 GM/DL (6.4-8.2)
[2020-03-20 16:54] LABS: CARBON DIOXIDE 23 MMOL/L (21-32)
[2020-03-20 16:55] LABS: BILIRUBIN,TOTAL 0.2 MG/DL (0.1-1.0)
[2020-03-20 16:57] LABS: ALKALINE PHOSPHATASE 90 U/L (40-136); CREATININE SERUM 0.85 MG/DL (0.60-1.30); GFR ESTIMATED > 60
[2020-03-20 16:58] LABS: BUN/CREATININE RATIO 20
[2020-03-20 17:00] LABS: ALANINE AMINOTRANSFERASE 17 U/L (0-55)
== END ==
LOC: LAB 16:07
PROVIDERS: ATTEND Internal Medicine
DX: Z01.89 Encounter for other specified special examinations (principal)
CPT/HCPCS: 36415; 80053; 85027

== ENCOUNTER 2020-11-04 14:22 | Emergency (ER) | payer MEDICAID ==
[~2020-11-04] VITALS: Ht 175 cm; Wt 81.0 kg
[~2020-11-04 14:22] MED LIST changes: -CETI10TA21 PO; +CETI10TA49 PO; +CLN.1T PO; +CLOB15CR2 TP; -CLON0.1T PO; +ESCI20TA39 PO; -ESCI20TA45 PO; +NAPR-1071 PO
--- NOTE | 2020-11-04 15:06 | ED Fall/Injury ---
General Chief Complaint: Trauma-Non Activation Stated Complaint: FALL Nursing Triage Note: PT ARRIVED PER EMS, PT HAD FALL AT [place] APPROX 1.5 HOURS AGO, PT IS W/C BOUND AND WAS STANDING TO REACH IN CLOSET. PT DENIES LOC, PT CO OF NECK PAIN, R SHOULDER PAIN, AND L KNEE PAIN. PT HAS C-COLLAR IN PLACE IN BY EMS. PT HAS HX OF NUMEROUS BRAIN SURGERIES. History of Present Illness Date Seen by Provider: Nov 04, 2020 Time Seen by Provider: 14:25 Initial Comments 55-year-old male presents via EMS after a fall at his senior care. He was getting something out of his closet and lost his balance. He denies loss of consciousness. Staff were present immediately after the fall and they deny loss of consciousness. He does report mild left neck pain since the fall. He is wearing a c-collar. 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 These were done at the [facility] and in [place]. Last one being in 2002. He has chronic problems with his left hip and wears a brace he is reporting increased pain in the left hip and left ankle. He is also complaining of pain in the proximal right humerus. Chronic left eye weakness. Location Injury Occurred: [facility] Occurred: just prior to arrival Injuries/Pain Location: head, upper extremity (right prox humerus), lower extremity (Left hip and ankle) Context: lost balance Loss of Consciousness: no loss of consciousness Modifying Factors: Improves With Rest Associated Symptoms (Fall): No Abdominal Pain, No Chest Pain, No Confusion, No Dizziness, No Headache, No Lightheadedness, No Muscle Spasms, No Nausea/Vomiting; Neck Pain (Left lateral); No Ringing in Ears, No Seizures, No Shortness of Air, No Slurred Speech; Trouble Walking (Chronic); No Vision Changes Allergies and Home Medications Allergies Coded Allergies: morphine (Unverified Adverse Reaction, Unknown, 07/01/18) Home Medications Albuterol Sulfate 1 Puff Puff, 2 PUFF IH Q4H PRN for SHORTNESS OF BREATH, (Reported) 1 PUFF = 90 MCG Amitriptyline HCl 25 Mg Tablet, 50 MG PO HS, (Reported) TAKES 2 (25MG) TABLETS Bisacodyl 10 Mg Supp.rect, 10 MG RC DAILY PRN for CONSTIPATION-4TH LINE, (Reported) Bumetanide 2 Mg Tablet, 2 MG PO DAILY, (Reported) Cetirizine HCl 10 Mg Tablet, 10 MG PO DAILY PRN for ALLERGIES, (Reported) Clobetasol Propionate 15 Gm Cream..g., 15 GM TP BID Prescribed by: KARAN HO on 03/20/201442 Clonazepam 0.5 Mg Tablet, 0.5 MG PO DAILY, (Reported) Clonazepam 1 Mg Tablet, 1 MG PO HS, (Reported) Dimethicone 92 Gm Cream..g., TP TID, (Reported) APPLY TO BUTTOCKS Divalproex Sodium 500 Mg Tablet.dr, 1,000 MG PO BID, (Reported) TAKES 2 (500MG) TABLETS Docusate Sodium 100 Mg Capsule, 100 MG PO BID, (Reported) Fluticasone/Vilanterol 1 Each Blst.w.dev, 1 PUFF INH DAILY, (Reported) Gabapentin 600 Mg Tablet, 600 MG PO TID, (Reported) Lactulose 10 Gm/15 Ml Solution, 15 ML PO BID, (Reported) Levetiracetam 750 Mg Tablet, 1,500 MG PO BID, (Reported) TAKES 2 (750MG) TABLETS Magnesium Hydroxide 400 Mg/5 Ml Oral.susp, 30 ML PO DAILY PRN for CONSTIPATION- 7TH LINE, (Reported) Memantine HCl 10 Mg Tablet, 10 MG PO BID, (Reported) Menthol 118 Ml Gel..ml., TP HS, (Reported) APPLY TO BILATERAL ANKLES Metolazone 10 Mg Tablet, 10 MG PO DAILY, (Reported) Naproxen 500 Mg Tablet, 500 MG PO Q12H PRN for PAIN-MILD, (Reported) Naproxen 500 Mg Tablet, 500 MG PO BID Prescribed by: KARAN OH on 03/20/201442 Omeprazole 20 Mg Capsule.dr, 20 MG PO DAILY, (Reported) Oxybutynin Chloride 5 Mg Tab.er.24, 5 MG PO DAILY, (Reported) Oxycodone HCl/Acetaminophen 1 Each Tablet, 1 TAB PO Q6H PRN for PAIN-MODERATE, (Reported) Potassium Chloride 20 Meq Tab.er.prt, 40 MEQ PO DAILY, (Reported) TAKES 2 (20MEQ) TABLETS Propylene Glycol 1.5 Ml Drops, 1 DROP OU BID, (Reported) Sennosides 8.6 Mg Tablet, 8.6 MG PO DAILY, (Reported) Patient Home Medication List Home Medication List Reviewed: Yes Review of Systems Review of Systems Constitutional: no symptoms reported, see HPI Eyes: No Symptoms Reported, See HPI Respiratory: no symptoms reported, see HPI; No cough, No short of breath Cardiovascular: no symptoms reported, see HPI; No chest pain Gastrointestinal: no symptoms reported, see HPI Musculoskeletal: see HPI, joint pain, neck pain All Other Systems Reviewed Negative Unless Noted: Yes Past Vasupnx-Xrgsko-Xequef Hx Past Med/Social Hx: Reviewed Nursing Past Med/Soc Hx Patient Social History Alcohol Use: Denies Use Drug of Choice: HX POT Smoking Status: Former Smoker Type Used: Cigarettes 2nd Hand Smoke Exposure: Yes Recent Infectious Disease Expo: No Recent Hopitalizations: No Immunizations Up To Date Tetanus Booster (TDap): Unknown PED Vaccines UTD: Yes Date of Pneumonia Vaccine: May 17, 2017 Date of Influenza Vaccine: Jun 26, 2018 Seasonal Allergies Seasonal Allergies: Yes Past Medical History Surgeries: Yes Brain Shunt, Neurological Respiratory: Yes Asthma, Pneumonia, COPD Currently Using CPAP: No Currently Using BIPAP: No Cardiac: Yes Hypertension Neurological: Yes (VENTRICULOPERITONEAL SHUNT, history of toxoplasmosis) Dementia, Headaches /Migraines Reproductive Disorders: No Genitourinary: No Gastrointestinal: Yes Gastroesophageal Reflux Musculoskeletal: Yes (GEN MUSCLE WEAKNESS) Arthritis Endocrine: No HEENT: No Cancer: No Psychosocial: Yes Anxiety, PTSD, Depression Integumentary: No Blood Disorders: No Adverse Reaction/Blood Tranf: No Family Medical History No Pertinent Family Hx Physical Exam Vital Signs Vital Signs - First Documented 11/04/20 14:25 Temp 35.9 Pulse 97 Resp 18 B/P (MAP) 127/81 (96) Pulse Ox 94 Capillary Refill : Less Than 3 Seconds Height, Weight, BMI Height: 5'8.00" Weight: 182lbs. 12.8oz. 82.493752ds; 26.00 BMI Method:Estimated General Appearance: WD/WN, no apparent distress HEENT: normal ENT inspection, TMs normal, pharynx normal Neck: supple, normal inspection, limited range of motion (Secondary to c- collar), tender midline (Left, soft tissue) Cardiovascular: normal peripheral pulses, regular rate, rhythm, no murmur Respiratory: chest non-tender, lungs clear, normal breath sounds, no respiratory distress Gastrointestinal: normal bowel sounds, non tender, soft Back: normal inspection, no CVA tenderness, no vertebral tenderness Extremities: normal range of motion, no calf tenderness, normal capillary refill, pedal edema (2+), other (Tenderness palpation proximal humerus on the right, he has full range of motion actively and passively to the right shoulder. Patient complains of pain to the medial aspect of the left ankle, he has full range of motion to the left ankle no obvious deformity or ecchymosis. Patient also complains of left hip pain slight increase in pain with passive range of motion of the left hip. Full range of motion with no pain in the right hip.) Neurologic/Psychiatric: no motor/sensory deficits, alert, normal mood/affect, oriented x 3 Skin: normal color, warm/dry Yamilex Coma Score Best Eye Response: (4) Open Spontaneously Best Verbal Response: (5) Oriented Best Motor Response: (6) Obeys Commands Yamilex Total: 15 Procedures/Interventions Suture Size: 4-0 Progress/Results/Core Measures Results/Orders Lab Results Laboratory Tests Test 11/04/20 15:00 Range/Units White Blood Count 8.8 4.3-11.0 10^3/uL Red Blood Count 4.94 4.30-5.52 10^6/uL Hemoglobin 12.9 L 13.3-17.7 g/dL Hematocrit 40 40-54 % Mean Corpuscular Volume 81 80-99 fL Mean Corpuscular Hemoglobin 26 25-34 pg Mean Corpuscular Hemoglobin Concent 32 32-36 g/dL Red Cell Distribution Width 14.6 H 10.0-14.5 % Platelet Count 407 H 130-400 10^3/uL Mean Platelet Volume 9.5 9.0-12.2 fL Immature Granulocyte % (Auto) 1 % Neutrophils (%) (Auto) 64 42-75 % Lymphocytes (%) (Auto) 23 12-44 % Monocytes (%) (Auto) 9 0-12 % Eosinophils (%) (Auto) 3 0-10 % Basophils (%) (Auto) 1 0-10 % Neutrophils # (Auto) 5.6 1.8-7.8 10^3/uL Lymphocytes # (Auto) 2.0 1.0-4.0 10^3/uL Monocytes # (Auto) 0.8 0.0-1.0 10^3/uL Eosinophils # (Auto) 0.3 0.0-0.3 10^3/uL Basophils # (Auto) 0.0 0.0-0.1 10^3/uL Immature Granulocyte # (Auto) 0.1 0.0-0.1 10^3/uL Prothrombin Time 13.4 12.2-14.7 SEC INR Comment 1.0 0.8-1.4 Activated Partial Thromboplast Time 35 24-35 SEC Sodium Level 139 135-145 MMOL/L Potassium Level 3.1 L 3.6-5.0 MMOL/L Chloride Level 92 L 98-107 MMOL/L Carbon Dioxide Level 23 21-32 MMOL/L Anion Gap 24 H 5-14 MMOL/L Blood Urea Nitrogen 8 7-18 MG/DL Creatinine 0.89 0.60-1.30 MG/DL Estimat Glomerular Filtration Rate > 60 BUN/Creatinine Ratio 9 Glucose Level 121 H 70-105 MG/DL Calcium Level 9.2 8.5-10.1 MG/DL Corrected Calcium 9.0 8.5-10.1 MG/DL Total Bilirubin 0.3 0.1-1.0 MG/DL Aspartate Amino Transf (AST/SGOT) 21 5-34 U/L Alanine Aminotransferase (ALT/SGPT) 20 0-55 U/L Alkaline Phosphatase 102 40-136 U/L Total Protein 8.2 6.4-8.2 GM/DL Albumin 4.3 3.2-4.5 GM/DL My Orders Orders - GLADYS RASHEED Ct Head/Cervical Spine Wo (11/04/20 14:35) Humerus, Right, 2 Views (11/04/20 14:35) Pelvis With Left Hip 2-3 Views (11/04/20 14:35) Ankle, Left, 3 Views (11/04/20 14:35) Cbc With Automated Diff (11/04/20 14:37) Comprehensive Metabolic Panel (11/04/20 14:37) Protime With Inr (11/04/20 14:37) Partial Thromboplastin Time (11/04/20 14:37) Acetaminophen Tablet/Caplet (Tylenol T (11/04/20 15:30) Potassium Chloride (Tablet) (Klor Con Ta (11/04/20 16:22) Medications Given in ED Current Medications Medications Dose Ordered Sig/Davin Route Start Time Stop Time Status Last Admin Dose Admin Acetaminophen 650 mg ONCE ONCE PO 11/04/20 15:30 11/04/20 15:32 DC 11/04/20 16:00 650 MG Vital Signs/I&O 11/04/20 14:25 Temp 35.9 Pulse 97 Resp 18 B/P (MAP) 127/81 (96) Pulse Ox 94 Blood Pressure Mean: 96 Progress Progress Note : Time: 14:25 Progress Note Patient seen and evaluated, will obtain CT of the head and neck. C-collar to remain on until cleared by CT. Will get x-ray of the right humerus, pelvis and left hip, and left ankle. 1500 labs essentially normal, K+ 3.1 will give Potassium [address] head and neck neg for acute findings. C-collar removed, trace tenderness left lateral neck, soft tissue. Tolerates ROM to neck, with no increased pain. Neurological status intact bilat UEs 1600 no acute injuries found on CT or x-rays. Results discussed with the patient. No complaints at this time. prison notified to [facility] patient. Discharge instructions and return Precautions reviewed. Diagnostic Imaging Diagonstic Imaging: CT Plain Films/CT/US/NM/MRI: c-spine, head Comments NAME: JULIANA BENJAMIN [facility] REC#: [id number] PT STATUS: REG ER : 1965 PHYSICIAN: GLADYS RASHEED ADMIT DATE: 11/04/20/ER Draft Date of Exam:11/04/20 CT HEAD/CERVICAL SPINE WO EXAMINATION: CT head and CT cervical spine without contrast. TECHNIQUE: Multiple contiguous axial images were obtained through the brain and cervical spine without the use of intravenous contrast. Sagittal and coronal reformations through the cervical spine were then performed. All CT scans use one or more of the following dose optimizing techniques: automated exposure control, MA and/or KvP adjustment based on a patient size and exam type, or iterative reconstruction. HISTORY: Head trauma. COMPARISON: CT head 05/22/2019. FINDINGS: HEAD: There is redemonstrated dilatation of the left lateral ventricle with 1.1 cm of azqy-nd-gnpbv midline shift. A right posterior approach ventriculostomy catheter is present terminating within the left ventricle, crossing the midline. There is chronic encephalomalacia within the bilateral frontal, parietal, and right temporal lobes. There is increased location along the right temporal lobe possibly from prior infarct or surgical resection. There continues to be a small volume of mild hyperdense subdural fluid bilaterally measuring approximately 3 mm in thickness, unchanged from 05/22/2019. No hyperdense vessel. Surgical changes throughout the calvarium from prior craniectomy. No acute calvarial fracture is seen. The mastoid air cells are clear. Mucosal thickening or fluid within the maxillary sinuses. The orbits are normal. C-SPINE: There is anterior fusion of C5 and C6. No acute fracture, dislocation, or destructive osseous process. Multilevel facet hypertrophy. Multilevel cervical spondylosis. The paraspinous soft tissues are normal. The visualized thyroid gland is normal. The visualized lung apices are normal. IMPRESSION: 1. Stable small bilateral subdural hypodense fluid collections which are unchanged from 05/22/2019. This could represent chronic subdural hematoma or dural thickening, although an acute component cannot be entirely excluded. 2. No other acute intracranial abnormality. 3. Encephalomalacia within both hemispheres, greatest within the right temporoparietal lobe. 4. Right posterior approach ventriculostomy catheter with redemonstrated left greater than right ventriculomegaly and 1.1 cm of njir-xl-vtlsp midline shift. 5. Degenerative changes of cervical spine without acute osseous abnormality. Dictated on workstation # [id number] Reviewed: Reviewed by Me Diagonstic Imaging: Xray Plain Films/CT/US/NM/MRI: other Comments NAME: JULIANA BENJAMIN [facility] REC#: [id number] PT STATUS: REG ER : 1965 PHYSICIAN: GLADYS RASHEED ADMIT DATE: 11/04/20/ER Draft Date of Exam:11/04/20 HUMERUS, RIGHT, 2 VIEWS INDICATION: Fall and arm pain. TIME OF EXAM: 3:16 PM Two views of the right humerus were obtained. Alignment at the shoulder and elbow is normal. The humerus is intact. No fractures are seen. There is no dislocation. IMPRESSION: No acute bony abnormality is detected. Dictated on workstation # [id number] Dict: 11/04/20 1536 Trans: 11/04/20 1538 [facility] [id number] Interpreted by: LEELA SWARTZ MD Electronically signed by: Reviewed: Reviewed by Me (Right humerus) Diagonstic Imaging: Xray Plain Films/CT/US/NM/MRI: pelvis, hip Comments NAME: JULIANA BENJAMIN [facility] REC#: [id number] PT STATUS: REG ER : 1965 PHYSICIAN: GLADYS RASHEED ADMIT DATE: 11/04/20/ER Draft Date of Exam:11/04/20 PELVIS WITH LEFT HIP 2-3 VIEWS INDICATION: Pelvic pain, fall. TIME OF EXAM: 3:18 PM An AP view of the pelvis and 2 views left hip were obtained. Femoral acetabular alignment is normal bilaterally. Both femoral heads and necks appear to be intact. Rami are intact. No fractures are seen. IMPRESSION: No acute bony abnormality is detected. Dictated on workstation # [id number] Dict: 11/04/20 1535 Trans: 11/04/20 1541 [facility] [id number] Interpreted by: LEELA SWARTZ MD Electronically signed by: Reviewed: Reviewed by Me Diagonstic Imaging: Xray Comments NAME: JULIANA BENJAMIN [facility] REC#: [id number] PT STATUS: REG ER : 1965 PHYSICIAN: GLADYS RASHEED ADMIT DATE: 11/04/20/ER Draft Date of Exam:11/04/20 ANKLE, LEFT, 3 VIEWS INDICATION: Fall with left ankle pain. TIME OF EXAM: 03:23 p.m. TECHNIQUE: Multiple views of the left ankle were obtained. FINDINGS: Alignment is normal. Ankle mortise is well maintained. Talar dome is smooth. No fracture or dislocation is seen. There is generalized soft tissue swelling about the medial and lateral ankle. IMPRESSION: Soft tissue swelling. No acute bony abnormality is detected. Dictated on workstation # [id number] Dict: 11/04/20 1537 Trans: 11/04/20 1540 [id number] Interpreted by: LEELA SWARTZ MD Electronically signed by: Reviewed: Reviewed by Me Departure Impression Primary Impression: Fall Qualified Codes: W19.XXXA - Unspecified fall, initial encounter Additional Impressions: SUPERINTENDENT COLLIERY (ventriculoperitoneal) shunt status Trapezius muscle strain Qualified Codes: S46.812A - Strain of other muscles, fascia and tendons at shoulder and upper arm level, left arm, initial encounter Disposition: 01 HOME, SELF-CARE Condition: Stable Departure-Patient Inst. Decision time for Depature: 16:00 Referrals: JULIANA WINSLOW MD (PCP) Primary Care Physician ESTEPHANIA IVAN (Family) Primary Care Physician Patient Instructions: Generalized Neck Pain (DC), Preventing Falls Add. Discharge Instructions: Alternate heat and ice to the neck for 20 minutes as needed. Tylenol 650 mg every 6 hours as needed for pain. Assist with mobility and dressing to prevent falls. Follow-up with primary care provider if symptoms are not improving or worsening. All discharge instructions reviewed with patient and/or family. Voiced understa nding. GLADYS RASHEED Nov 04, 2020 15:06
[2020-11-04 15:11] LABS: BASOPHILS % (AUTO) 1 % (0-10); EOSINOPHILS # (AUTO) 0.3 10^3/uL (0.0-0.3); EOSINOPHILS % (AUTO) 3 % (0-10); HEMATOCRIT 40 % (40-54); HEMOGLOBIN 12.9 g/dL (13.3-17.7); LYMPHOCYTES % (AUTO) 23 % (12-44); MEAN CORPUSCULAR HEMOGLOBIN 26 pg (25-34); MEAN CORPUSCULAR HGB CONC 32 g/dL (32-36); MEAN CORPUSCULAR VOLUME 81 fL (80-99); MEAN PLATELET VOLUME 9.5 fL (9.0-12.2); MONOCYTES # (AUTO) 0.8 10^3/uL (0.0-1.0); MONOCYTES % (AUTO) 9 % (0-12); NEUTROPHILS # (AUTO) 5.6 10^3/uL (1.8-7.8); NEUTROPHILS % (AUTO) 64 % (42-75); PLATELET COUNT 407 10^3/uL (130-400); WHITE BLOOD COUNT 8.8 10^3/uL (4.3-11.0)
[2020-11-04 15:27] LABS: PROTHROMBIN TIME PATIENT 13.4 SEC (12.2-14.7)
[2020-11-04 15:29] LABS: ALANINE AMINOTRANSFERASE 20 U/L (0-55); ALBUMIN 4.3 GM/DL (3.2-4.5); ALKALINE PHOSPHATASE 102 U/L (40-136); BILIRUBIN,TOTAL 0.3 MG/DL (0.1-1.0); BUN/CREATININE RATIO 9; CALCIUM 9.2 MG/DL (8.5-10.1); CARBON DIOXIDE 23 MMOL/L (21-32); CHLORIDE 92 MMOL/L (98-107); CREATININE SERUM 0.89 MG/DL (0.60-1.30); GFR ESTIMATED > 60; GLUCOSE 121 MG/DL (70-105); POTASSIUM 3.1 MMOL/L (3.6-5.0); SODIUM 139 MMOL/L (135-145); TOTAL PROTEIN 8.2 GM/DL (6.4-8.2)
[2020-11-04] MEDS ORDERED: ACETAMINOPHEN 325 MG TABLET PO ONE (15:30)
--- NOTE | 2020-11-04 15:34 | Diagnostic Imaging Report ---
EXAMINATION: CT head and CT cervical spine without contrast. TECHNIQUE: Multiple contiguous axial images were obtained through the brain and cervical spine without the use of intravenous contrast. Sagittal and coronal reformations through the cervical spine were then performed. All CT scans use one or more of the following dose optimizing techniques: automated exposure control, MA and/or KvP adjustment based on a patient size and exam type, or iterative reconstruction. HISTORY: Head trauma. COMPARISON: CT head 05/22/2019. FINDINGS: HEAD: There is redemonstrated dilatation of the left lateral ventricle with 1.1 cm of nzao-tz-zaleh midline shift. A right posterior approach ventriculostomy catheter is present terminating within the left ventricle, crossing the midline. There is chronic encephalomalacia within the bilateral frontal, parietal, and right temporal lobes. There is increased location along the right temporal lobe possibly from prior infarct or surgical resection. There continues to be a small volume of mild hyperdense subdural fluid bilaterally measuring approximately 3 mm in thickness, unchanged from 05/22/2019. No hyperdense vessel. Surgical changes throughout the calvarium from prior craniectomy. No acute calvarial fracture is seen. The mastoid air cells are clear. Mucosal thickening or fluid within the maxillary sinuses. The orbits are normal. C-SPINE: There is anterior fusion of C5 and C6. No acute fracture, dislocation, or destructive osseous process. Multilevel facet hypertrophy. Multilevel cervical spondylosis. The paraspinous soft tissues are normal. The visualized thyroid gland is normal. The visualized lung apices are normal. IMPRESSION: 1. Stable small bilateral subdural hypodense fluid collections which are unchanged from 05/22/2019. This could represent chronic subdural hematoma or dural thickening, although an acute component cannot be entirely excluded. 2. No other acute intracranial abnormality. 3. Encephalomalacia within both hemispheres, greatest within the right temporoparietal lobe. 4. Right posterior approach ventriculostomy catheter with redemonstrated left greater than right ventriculomegaly and 1.1 cm of vawf-uq-nmglt midline shift. 5. Degenerative changes of cervical spine without acute osseous abnormality. Dictated by: Dictated on workstation # [id number]
--- NOTE | 2020-11-04 15:39 | Diagnostic Imaging Report ---
INDICATION: Fall and arm pain. TIME OF EXAM: 3:16 PM Two views of the right humerus were obtained. Alignment at the shoulder and elbow is normal. The humerus is intact. No fractures are seen. There is no dislocation. IMPRESSION: No acute bony abnormality is detected. Dictated by: Dictated on workstation # [id number]
--- NOTE | 2020-11-04 15:41 | Diagnostic Imaging Report ---
INDICATION: Fall with left ankle pain. TIME OF EXAM: 03:23 p.m. TECHNIQUE: Multiple views of the left ankle were obtained. FINDINGS: Alignment is normal. Ankle mortise is well maintained. Talar dome is smooth. No fracture or dislocation is seen. There is generalized soft tissue swelling about the medial and lateral ankle. IMPRESSION: Soft tissue swelling. No acute bony abnormality is detected. Dictated by: Dictated on workstation # [id number]
--- NOTE | 2020-11-04 15:42 | Diagnostic Imaging Report ---
INDICATION: Pelvic pain, fall. TIME OF EXAM: 3:18 PM An AP view of the pelvis and 2 views left hip were obtained. Femoral acetabular alignment is normal bilaterally. Both femoral heads and necks appear to be intact. Rami are intact. No fractures are seen. IMPRESSION: No acute bony abnormality is detected. Dictated by: Dictated on workstation # [id number]
[2020-11-04] MEDS ORDERED: KCL 10 MEQ TAB (MICRO K) PO STA (16:22)
[2020-11-04 16:35] VITALS: BP 119/59
== END 2020-11-04 16:35 | disposition home or self-care (01) ==
LOC: EDUNIT# 14:22 → ER 14:24
DX: S46.911A Strain of unspecified muscle, fascia and tendon at shoulder and upper arm level, right arm, initial encounter (principal); J44.9 Chronic obstructive pulmonary disease, unspecified; K21.9 Gastro-esophageal reflux disease without esophagitis; F32.9 Major depressive disorder, single episode, unspecified; I10 Essential (primary) hypertension; Z98.2 Presence of cerebrospinal fluid drainage device; Z87.891 Personal history of nicotine dependence; Z88.5 Allergy status to narcotic agent; W19.XXXA Unspecified fall, initial encounter
CPT/HCPCS: 36415; 70450; 72125; 73060; 73610; 80053; 85025; 85610; 85730

== ENCOUNTER → 2021-02-05 | Outpatient (CLI) | payer MEDICAID | LOC: WOUNDCARE 08:52 | PROVIDERS: ATTEND Surgery | DX: L73.2 Hidradenitis suppurativa (principal); L02.413 Cutaneous abscess of right upper limb; L02.412 Cutaneous abscess of left axilla; L98.492 Non-pressure chronic ulcer of skin of other sites with fat layer exposed; L98.491 Non-pressure chronic ulcer of skin of other sites limited to breakdown of skin | CPT/HCPCS: 99213 ==

== ENCOUNTER → 2021-02-12 | Outpatient (CLI) | payer MEDICAID ==
[~2021-02-12] MED LIST changes: -OXYC-464 PO; +OXYC1TAB15 PO
== END ==
LOC: WOUNDCARE 08:50
PROVIDERS: ATTEND Surgery
DX: L73.2 Hidradenitis suppurativa (principal); I96 Gangrene, not elsewhere classified; L02.413 Cutaneous abscess of right upper limb; L02.412 Cutaneous abscess of left axilla; L98.491 Non-pressure chronic ulcer of skin of other sites limited to breakdown of skin; T65.222A Toxic effect of tobacco cigarettes, intentional self-harm, initial encounter; F17.218 Nicotine dependence, cigarettes, with other nicotine-induced disorders
CPT/HCPCS: 99213